=== PATIENT | male | born 1960 | race Hispanic/Latino ===

== ENCOUNTER 2016-09-16 14:15 | Inpatient (IN) | payer OTHER ==
[2016-09-16 14:16] VITALS: BMI 28.8
--- NOTE | 2016-09-16 14:56 | ED PDOC ---
Arrival/HPI <Antonio Cobb - Last Filed: 09/17/16 05:07> - General Historian: Patient - History of Present Illness Time/Duration: Prior to Arrival Symptom Course: Unchanged Quality: Other Context: Other <Jeffery Castrejon - Last Filed: 09/17/16 10:28> - General Chief Complaint: Chest Pain Time Seen by Provider: 09/16/16 14:30 - History of Present Illness Narrative History of Present Illness (Text): 09/16/16 14:50 A 55 year old male, whose past medical history includes alcohol abuse, depression, hypertension, diabetes, asthma, cardiac stent and COPD, was brought into the emergency department by EMS for alcohol intoxication. Patient is complaining of chest discomfort and suicidal ideation with no plan. Patient admits to drinking alcohol daily, he states his last drink was at 13:00 today. Patient denies any fever, nausea, vomiting, diarrhea, abdominal pain, shortness of breath, homicidal ideation or any other complaints. PMD: Dr. Victor (Jeffery Castrejon) Past Medical History - Provider Review Nursing Documentation Reviewed: Yes - Infectious Disease Hx of Infectious Diseases: None - Tetanus Immunization Tetanus Immunization: Unknown - Cardiac Hx Cardiac Disorders: Yes (cad) Hx Angina: Yes Hx Cardiac Arrhythmia: Yes (afib) Hx Hypertension: Yes Hx Pacemaker: Yes Other/Comment: palpitations, cardiac stent - Pulmonary Hx Respiratory Disorders: Yes Hx Chronic Obstructive Pulmonary Disease (COPD): Yes - Neurological Hx Neurological Disorder: Yes (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) Hx Dizziness: Yes Other/Comment: tremors, syncope, weakness - HEENT Hx HEENT Disorder: No - Renal Hx Renal Disorder: No - Endocrine/Metabolic Hx Endocrine Disorders: No - Hematological/Oncological Hx Blood Disorders: No Hx AIDS: No - Integumentary Hx Dermatological Disorder: No - Musculoskeletal/Rheumatological Hx Musculoskeletal Disorders: Yes Hx Falls: Yes Hx Fractures: Yes (JAW FRACTURE FROM BOXING) - Gastrointestinal Hx Gastrointestinal Disorders: No - Genitourinary/Gynecological Hx Genitourinary Disorders: No - Psychiatric Hx Psychophysiologic Disorder: Yes Hx Depression: Yes Hx Substance Use: No - Past Surgical History Past Surgical History: No Previous - Surgical History Hx Cardiac Catheterization: Yes Hx Coronary Stent: Yes (X1) - Anesthesia Hx Anesthesia: Yes Hx Anesthesia Reactions: No Hx Malignant Hyperthermia: No - Suicidal Assessment Feels Threatened In Home Enviroment: No <Jeffery Castrejon - Last Filed: 09/17/16 10:28> Family/Social History - Physician Review Nursing Documentation Reviewed: Yes Family/Social History: No Known Family HX Smoking Status: Light Smoker < 10 Cigarettes Daily Hx Alcohol Use: Yes Amount per day: 5 Hx Substance Use: No Hx Substance Use Treatment: No <Jeffery Castrejon - Last Filed: 09/17/16 10:28> Allergies/Home Meds <RezaAntonio - Last Filed: 09/17/16 05:07> <Jeffery Castrejon - Last Filed: 09/17/16 10:28> Allergies/Adverse Reactions: Allergies No Known Allergies Allergy (Verified 09/16/16 14:25) Home Medications: Home Meds Medication Instructions Recorded Confirmed Simvastatin 40 mg PO DAILY 09/04/12 05/27/16 Aspirin [Aspir 81] 81 mg PO DAILY 09/09/12 05/27/16 Metoprolol Tartrate [Lopressor] 50 mg PO BID 08/14/15 05/27/16 Sertraline HCl 50 mg PO DAILY 08/14/15 05/27/16 Valsartan/Hydrochlorothiazide 1 tab PO DAILY 08/14/15 05/27/16 [Valsartan-Hctz 320-25 mg Tab] Nitrostat SL Tab 0.4 mg PO PRN PRN 10/12/15 05/27/16 Review of Systems - Review of Systems Systems not reviewed;Unavailable: Intoxicated <Jeffery Castrejon - Last Filed: 09/17/16 10:28> Physical Exam Vital Signs Reviewed: Yes Temperature: Afebrile Blood Pressure: Normal Pulse: Tachycardic Respiratory Rate: Normal Appearance: Positive for: Comfortable. No: Non-Toxic Pain Distress: None Mental Status: No: Confused, Agitated, Lethargic - Systems Exam Head: Present: Atraumatic, Normocephalic Pupils: Present: PERRL Extroacular Muscles: Present: EOMI Conjunctiva: Present: Normal Mouth: Present: Moist Mucous Membranes Neck: Present: Normal Range of Motion Respiratory/Chest: Present: Clear to Auscultation, Good Air Exchange. No: Respiratory Distress, Accessory Muscle Use Cardiovascular: Present: Regular Rate and Rhythm, Normal S1, S2. No: Murmurs Abdomen: Present: Normal Bowel Sounds. No: Tenderness, Distention, Peritoneal Signs Back: Present: Normal Inspection Upper Extremity: Present: Normal Inspection. No: Cyanosis, Edema Lower Extremity: Present: Normal Inspection. No: Edema Neurological: Present: GCS=15, CN II-XII Intact, Speech Normal Skin: Present: Warm, Dry, Normal Color. No: Rashes Psychiatric: Present: Intoxicated <Jeffery Castrejon - Last Filed: 09/17/16 10:28> Vital Signs Temp Pulse Resp BP Pulse Ox 09/17/16 04:35 90 18 137/86 96 09/17/16 03:00 98.4 F 91 H 17 130/79 96 09/16/16 23:56 84 18 134/71 97 09/16/16 14:39 98.2 F 97 H 18 136/86 100 Medical Decision Making <Antonio Cobb - Last Filed: 09/17/16 05:07> - Lab Interpretations I have reviewed the lab results: Yes <Jeffery Castrejon - Last Filed: 09/17/16 10:28> ED Course and Treatment: 09/16/16 14:50 Impression: A 55 year old male brought in for alcohol intoxication and chest discomfort. Patient reports suicidal ideation with no plan. Plan: -- Chest xray -- EKG -- Labs -- Urinalysis -- IV fluids and Thiamine -- Reassess and disposition Progress Notes: EKG shows NSR at [address]-segment elevations, normal intervals. Interpreted by me. Report Date : 09/16/2016 15:51:06 Procedure: Chest xray Dictator : Raoul Cristina MD IMPRESSION: Questionable mild right basilar 09/17/16 10:27 (Jeffery Castrejon) - Lab Interpretations Lab Results: 09/16/16 15:40 09/16/16 15:40 Lab Results 09/16/16 20:20: Troponin I < 0.01, Urine Color Yellow, Urine Appearance Clear, Urine pH 7.0, Ur Specific [place] 1.010, Urine Protein Negative, Urine Glucose ( UA) Negative, Urine Ketones Negative, Urine Blood Trace-intact H, Urine Nitrate Negative, Urine Bilirubin Negative, Urine Urobilinogen 0.2, Ur Leukocyte Esterase Negative, Urine RBC 0 - 2, Urine WBC Negative, Urine Opiates Screen Negative, Urine Methadone Screen Negative, Ur Barbiturates Screen Negative, Ur Phencyclidine Scrn Negative, Ur Amphetamines Screen Negative, U Benzodiazepines Scrn Negative, U Oth Cocaine Metabols Negative, U Cannabinoids Screen Negative 09/16/16 15:40: WBC 5.7, RBC 4.39, Hgb 14.2, Hct 40.8 L, MCV 92.9, MCH 32.3, MCHC 34.8, RDW 13.0, Plt Count 279, MPV 9.7, Gran % 48.7 L, Lymph % (Auto) 40.0 H, [place] % (Auto) 9.3 H, Eos % (Auto) 0.3 L, Baso % (Auto) 1.7, Gran # 2.78, Lymph # 2.3, [place] # 0.5, Eos # 0.0, Baso # 0.10, Sodium 144, Potassium 4.0, Chloride 101, Carbon Dioxide 26, Anion Gap 21 H, BUN 15, Creatinine 0.8, Est GFR ( Amer) > 60, Est GFR (Non-Af Amer) > 60, Random Glucose 90, Calcium 8.9, Total Bilirubin 0.6, AST 73 H, ALT 43, Alkaline Phosphatase 76, Lactate Dehydrogenase 802 H, Total Creatine Kinase 690 H, CK-MB (CK-2) 1.5, CK-MB (CK-2 ) % Cancelled, Troponin I < 0.01, Total Protein 8.2, Albumin 4.3, Globulin 3.9, Albumin/Globulin Ratio 1.1, Alcohol, Quantitative 356 H* - RAD Interpretation Radiology Orders: 09/16/16 14:52 CHEST PORTABLE [RAD] Stat - Medication Orders Current Medication Orders: Acetaminophen (Tylenol 325mg Tab) 650 mg PO Q6H PRN PRN Reason: Fever >100.4 F Albuterol/Ipratropium (Duoneb 3 Mg/0.5 Mg (3 Ml) Ud) 3 ml IH TIDRESP [place] Albuterol/Ipratropium (Duoneb 3 Mg/0.5 Mg (3 Ml) Ud) 3 ml IH Q4 PRN PRN Reason: Shortness of Breath Chlordiazepoxide (Librium) 25 mg PO Q8 [place] PRN Reason: Protocol Last Admin: 09/17/16 06:45 Dose: 25 MG Enoxaparin Sodium (Lovenox) 40 mg SC DAILY [place] PRN Reason: Protocol Last Admin: 09/17/16 09:51 Dose: 40 MG Protocol for PTT Monitoring Document 09/17/16 09:51 [facility] (Rec: 09/17/16 09:51 [facility]-[id number]) Protocol Protocol for PTT Monitoring Following clinical pathway protocol (regime/therapy) Subcutaneous Administrations Document 09/17/16 09:51 [facility] (Rec: 09/17/16 09:51 [facility]-[id number]) Injection Site MAR Injection Site Left Abdomen Charges for Administration # of Subcutaneous Administrations 1 Folic Acid (Folic Acid) 1 mg PO DAILY [facility] Last Admin: 09/17/16 09:51 Dose: 1 MG Sodium Chloride (Sodium Chloride 0.9%) 1,000 mls @ 100 mls/hr IV .Q10H [facility] Last Admin: 09/17/16 09:55 Dose: 100 MLS/HR eMAR Start Stop Document 09/17/16 09:55 [facility] (Rec: 09/17/16 09:55 [facility]-[id number]) Intravenous Solution Start Date 09/17/16 Start Time 09:55 Azithromycin (Zithromax 500mg In Ns) 250 mls @ 167 mls/hr IVPB DAILY [facility] PRN Reason: Protocol Last Admin: 09/17/16 09:20 Dose: 167 MLS/HR eMAR Start Stop Document 09/17/16 09:20 [facility] (Rec: 09/17/16 09:57 [facility]-[id number]) Intravenous Solution Start Date 09/17/16 Start Time 09:20 End Date 09/17/16 End time 09:20 Total Infusion Time 0 Ceftriaxone Sodium (Rocephin 1 Gram Ivpb) 100 mls @ 100 mls/hr IVPB DAILY [facility] PRN Reason: Protocol Last Admin: 09/17/16 09:51 Dose: 100 MLS/HR eMAR Start Stop Document 09/17/16 09:51 [facility] (Rec: 09/17/16 09:52 [facility]-[id number]) Intravenous Solution Start Date 09/17/16 Start Time 09:52 End Date 09/17/16 End time 10:52 Total Infusion Time 60 Lorazepam (Ativan) 2 mg IVP Q4H PRN; Protocol PRN Reason: Anxiety Multivitamins (Thera Tab) 1 tab PO DAILY [facility] Last Admin: 09/17/16 09:51 Dose: 1 TAB Ondansetron HCl (Zofran Inj) 4 mg IVP Q6 PRN PRN Reason: Nausea/Vomiting Pantoprazole Sodium (Protonix Ec Tab) 40 mg PO 0630 [facility] Last Admin: 09/17/16 06:45 Dose: 40 MG Thiamine HCl (Vitamin B1 Tab) 100 mg PO DAILY [facility] Last Admin: 09/17/16 09:54 Dose: 100 MG Discontinued Medications Azithromycin (Zithromax) 500 mg PO STAT STA PRN Reason: Protocol Stop: 09/16/16 21:49 Last Admin: 09/17/16 06:41 Dose: Lorazepam (Ativan) 1 mg IVP ONCE ONE Stop: 09/17/16 03:37 Last Admin: 09/17/16 04:20 Dose: 1 MG Behavioural Document 09/17/16 04:20 [facility] (Rec: 09/17/16 04:20 [facility]-[id number]) Maintenance Maintenance Dose No Nonmedicinal Nonmedicinal Interventions Redirect See nurse's notes Behavior Behavior for Medication: Anxiety IVP Administration Document 09/17/16 04:20 [facility] (Rec: 09/17/16 04:20 [facility]-[id number]) Charges for Administration # of IVP Administrations 1 Thiamine HCl (Vitamin B1 Tab) 100 mg PO ONCE ONE Stop: 09/16/16 16:01 Last Admin: 09/16/16 15:55 Dose: 100 MG ED OBSERVATION <Antonio Cobb - Last Filed: 09/17/16 05:07> Date of observation admission: 09/16/16 Time of observation admission: 15:52 <Jeffery Castrejon - Last Filed: 09/17/16 10:28> - Observation admission statement Patient is being placed in observation because:: Alcohol intoxication (Jeffery Castrejon) - Goals of Observation Goals of observation are:: Sobriety (Jeffery Castrejon) - Progress Note Progress Note: 09/17/16 23:00 Case endorsed to me by Dr. Castrejon, pending sobriety, PES evaluation, re- assessment, and final disposition. 09/17/16 01:00 Pt sleeping currently, in no acute distress. 09/17/16 03:00 Pt resting comfortably, stable vital signs. Pt seen and evaluated by PES screener Sadie, who discussed case with psychiatrist card tape converter operator. Pt psychiatrically cleared for outpt follow-up. 09/17/16 03:34 On re-evaluation, pt now tremulous. Showing signs of alcohol withdrawal. Will admit for further evaluation. Paged medical records specialist and house physician. 09/17/16 03:[address] Atkinson, who is aware and agrees with plan. Accepts pt in to hospitalist service. Pt admitted to Telemetry for alcohol withdrawal syndrome. Pt is agreeable with plan. (Antonio Cobb) 09/16/16 15:52 Patient brought in for alcohol intoxication. Patient complains of chest discomfort and suicidal ideation. Will observe pending sobriety. 09/16/16 16:45 Labs reviewed, alcohol level of 356. 09/16/16 17:50 Patient resting comfortably, in no acute distress. 09/16/16 19:50 Patient resting comfortably, no new complaints. 09/16/16 20:35 Will order second set of troponin. 09/16/16 21:47 Second set of troponin is negative. Patient is medically cleared for PES. pt with questionable infiltrate. given one dose of zithromax. pt denies fever or cough. He is resting comfortably. 09/16/16 23:00 Patient signed out to Dr. Cobb. Pending PES evaluation. 09/17/16 10:27 (Jeffery Castrejon) <Antonio Cobb - Last Filed: 09/17/16 05:07> - Scribe Statement The provider has reviewed the documentation as recorded by the Scribe <Jeffery Castrejon - Last Filed: 09/17/16 10:28> - Scribe Statement Ghazala Beebe Provider Scribe Attestation: All medical record entries made by the Scribe were at my direction and personally dictated by me. I have reviewed the chart and agree that the record accurately reflects my personal performance of the history, physical exam, medical decision making, and the department course for this patient. I have also personally directed, reviewed, and agree with the discharge instructions and disposition. (Jeffery Castrejon) Disposition/Present on Arrival - Present on Arrival Any Indicators Present on Arrival: No History of DVT/PE: No History of Uncontrolled Diabetes: No Urinary Catheter: No History of Decub. Ulcer: No History Surgical Site Infection Following: None - Disposition Have Diagnosis and Disposition been Completed?: Yes Disposition Time: 03:44 Patient Plan: Admission <RezaAntonio - Last Filed: 09/17/16 05:07> - Present on Arrival Any Indicators Present on Arrival: No History of DVT/PE: No History of Uncontrolled Diabetes: No Urinary Catheter: No History of Decub. Ulcer: No History Surgical Site Infection Following: None - Disposition Have Diagnosis and Disposition been Completed?: Yes Disposition Time: 15:52 <Jeffery Castrejon - Last Filed: 09/17/16 10:28> - Disposition Diagnosis: Alcohol withdrawal syndrome Disposition: HOSPITALIZED Patient Problems: Current Active Problems Problem Status Diagnosed Alcohol withdrawal syndrome Acute Condition: STABLE - Notes Notes (Text): 09/17/16 10:28 (Jeffery Castrejon)
[2016-09-16] MEDS: Sodium Chloride 0.9% 1,000 ML IV SCH (15:48)
[2016-09-16 15:51] LABS: ADD MANUAL DIFF? NO
--- NOTE | 2016-09-16 15:52 | RAD ---
HISTORY: chest pain COMPARISON: Comparison made with chest radiograph 09/07/2016. FINDINGS: LUNGS: Atelectasis questionable mild right basilar PLEURA: No significant pleural effusion identified, no pneumothorax apparent. CARDIOVASCULAR: Cardiomegaly. OSSEOUS STRUCTURES: No significant abnormalities. VISUALIZED UPPER ABDOMEN: Normal. OTHER FINDINGS: None. IMPRESSION: Questionable mild right basilar
[2016-09-16 15:59] LABS: BASO % 1.7 % (0.0-3.0); EOS % 0.3 % (1.5-5.0); GRAN # 2.78 (1.4-6.5); GRAN % 48.7 % (50.0-68.0); HEMATOCRIT 40.8 % (42.0-52.0); LYMPH # 2.3 (1.2-3.4); MEAN CELL VOLUME 92.9 fL (80.0-105.0); MEAN CORPUSCULAR HEMOGLOBIN 32.3 pg (25.0-35.0); MEAN CORPUSCULAR HGB CONC 34.8 g/dl (31.0-37.0); MEAN PLATELET VOLUME 9.7 fl (7.0-11.0); MONO # 0.5 (0.1-0.6); MONO % 9.3 % (1.0-6.0); PLATELET COUNT 279 10^3/uL (120.0-450.0); WHITE BLOOD COUNT 5.7 10^3/ul (4.5-11.0)
[2016-09-16 16:15] LABS: ALB/GLOB RATIO 1.1 (1.1-1.8); ALKALINE PHOSPHATASE 76 U/L (38-133); ALT/SGPT 43 U/L (7-56); AST/SGOT 73 U/L (15-59); BILIRUBIN,TOTAL 0.6 mg/dL (0.2-1.3); BLOOD UREA NITROGEN 15 mg/dL (7-21); CALCIUM 8.9 mg/dL (8.4-10.5); CARBON DIOXIDE 26 mmol/L (21-33); CHLORIDE 101 mmol/L (98-107); GFR AFRICAN-AMERICAN > 60; GLUCOSE,RANDOM 90 mg/dL (70-110); SODIUM 144 mmol/L (132-148); TOTAL PROTEIN 8.2 g/dL (5.8-8.3)
[2016-09-16 16:41] LABS: TROPONIN I < 0.01 ng/mL
--- NOTE | 2016-09-16 19:48 | CARD ---
APPROVED REPORT EKG Measurement Heart [id number] <Conclusion> Normal sinus rhythm Normal ECG
[2016-09-16 20:48] LABS: URINE BILIRUBIN NEGATIVE (NEGATIVE); URINE BLOOD TRACE-INTACT (NEGATIVE); URINE GLUCOSE (UA) NEGATIVE (NEGATIVE); URINE KETONE NEGATIVE (NEGATIVE); URINE LEUKOCYTE ESTERASE NEGATIVE Leu/uL (NEGATIVE); URINE PROTEIN NEGATIVE mg/dL (<30 mg/dL); URINE UROBILINOGEN 0.2 E.U./dL (<1 E.U./dL)
[2016-09-16 20:52] LABS: URINE APPEARANCE CLEAR (CLEAR); URINE COLOR YELLOW (YELLOW)
[2016-09-16 20:53] LABS: URINE RBC 0 - 2 /hpf (0-2); URINE WBC NEGATIVE /hpf (0-6)
[2016-09-17] MEDS: Sodium Chloride 0.9% 1,000 ML IV SCH ×2 (01:19→09:55)
--- NOTE | 2016-09-17 05:17 | CP.PCM.HP ---
<Demetria Hernandez - Last Filed: 09/17/16 06:30> History of Present Illness - History of Present Illness History of Present Illness: PGY-[address] Atkinson H&P Admission: ETOH withdrawal, CP r/o ACS 55 y/o male with a hx of CAD s/p stents, A-fib, Angina, HTN, hyperlipidemia, alcohol abuse, depression, asthma and COPD, was brought into the emergency department by EMS for alcohol intoxication. Pt states that he was drinking at home, 15 beers/day, and feeling SOB without cough. Neighbor saw him and called the ambulance. When pt first arrives at the ED, patient is complaining of chest discomfort and suicidal ideation with no plan. Patient admits to drinking alcohol daily, he states his last drink was at 13:00 today. In the ED, VSS. CBC within normal limit except HCT is 41. Anion gap is high at 17. Lactate dehydrogenase is 802. Total CK is 690. cardiac enzyme negative x 2. Blood alcohol 356 at 4pm. - EKG shows NSR at [address]-segment elevations, normal intervals. - CXR showed questionable mild R basilar atelactasis - Azithromycin was given x 1 At 3am, after 12 hours since initial ED arrival, pt is now becoming tremulous, HR 102 on monitor. Pt denies suicidal ideation, hallucination. ROS - (+) constipation. with blood streaks on tissue after wiping. Denies hemoptsis, hematemasis (+) epigastric pain, worse when he is hungry Denies any fever/chills, nausea, coughs, N/vomiting, diarrhea, abdominal pain , shortness of breath, homicidal ideation or any other complaints. PMHx: CAD s/p stents; LVEF 51% Stress test 2016, echo 2015 A-fib Angina HTN hyperlipidemia Alcoholics Anemia Depression COPD PSHx: none FH: denies SH: smokes electronic cigarette, once daily Beer, 15 cans per day denies illicit drug use All NKDA Med ASA, Nitrostat PRN, , Lopressor BID, Valsartan/Hctz 320-25, Simvastatin 40 Sertraline 50 Albuterol PMD = Dr. 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) Hx Dizziness: Yes Other/Comment: tremors, syncope, weakness - HEENT Hx HEENT Problems: No - RENAL Hx Chronic Kidney Disease: No - ENDOCRINE/METABOLIC Hx Endocrine Disorders: No - HEMATOLOGICAL/ONCOLOGICAL Hx Blood Disorders: No Hx AIDS: No - INTEGUMENTARY Hx Dermatological Problems: No - MUSCULOSKELETAL/RHEUMATOLOGICAL Hx Musculoskeletal Disorders: Yes Hx Falls: Yes Hx Fractures: Yes (JAW FRACTURE FROM BOXING) - GASTROINTESTINAL Hx Gastrointestinal Disorders: No - GENITOURINARY/GYNECOLOGICAL Hx Genitourinary Disorders: No - PSYCHIATRIC Hx Psychophysiologic Disorder: Yes Hx Depression: Yes Hx Substance Use: No - SURGICAL HISTORY Hx Cardiac Catheterization: Yes Hx Coronary Stent: Yes (X1) - ANESTHESIA Hx Anesthesia: Yes Hx Anesthesia Reactions: No Hx Malignant Hyperthermia: No Meds Allergies/Adverse Reactions: Allergies Allergy/AdvReac Type Severity Reaction Status Date / Time No Known Allergies Allergy Verified 09/16/16 14:25 Physical Exam - Constitutional Appears: No Acute Distress Additional comments: alcohol breath - Head Exam Head Exam: ATRAUMATIC, NORMOCEPHALIC - Eye Exam Eye Exam: EOMI, Normal appearance, PERRL. absent: Scleral icterus Pupil Exam: NORMAL ACCOMODATION - ENT Exam ENT Exam: Mucous Membranes Moist - Neck Exam Neck exam: Negative for: Meningismus Additional comments: supple - Respiratory Exam Respiratory Exam: Clear to Auscultation Bilateral, NORMAL BREATHING PATTERN. absent: Rales, Rhonchi, Wheezes - Cardiovascular Exam Cardiovascular Exam: Tachycardia, REGULAR RHYTHM, +S1, +S2. absent: Systolic Murmur - GI/Abdominal Exam GI & Abdominal Exam: Normal Bowel Sounds, Soft, Tenderness (epigastric; negative anne, rovsing, mcburney) - Back Exam Back exam: absent: CVA tenderness (L), CVA tenderness (R), vertebral tenderness - Neurological Exam Neurological exam: Alert, Oriented x3 Additional comments: drowsy, easily awaken - Psychiatric Exam Psychiatric exam: Normal Affect, Normal Mood - Skin Skin Exam: Dry, Warm Results - Vital Signs Recent Vital Signs: Last Vital Signs Temp 98.4 F 09/17/16 03:00 Pulse 90 09/17/16 04:35 Resp 18 09/17/16 04:35 BP 137/86 09/17/16 04:35 Pulse Ox 96 09/17/16 04:35 - Labs Result Diagrams: 09/16/16 15:40 09/16/16 15:40 Assessment & Plan - Assessment and Plan (Free Text) Plan: 55 y/o male with a hx of CAD s/p stents, A-fib, Angina, HTN, hyperlipidemia, alcohol abuse, depression, asthma and COPD, was brought into the emergency department by EMS for alcohol intoxication. Patient is complaining of chest discomfort and suicidal ideation with no plan. Pt is now becoming tremulous and tachycardia at 102 ETOH withdrawal Tachycardia, tremulous - CIWA - Librium 25 q8 - Ativan 2q4 PRN - B1, folate, multivitamin - PRN zofran, tylenol Chest pain r/o ACS Hx Angina and A-fib - EKG shows NSR at [address]-segment elevations, normal intervals. QTc 447 - Cardiac enzyme negative x 2 - echocardiogram - cardiology consult - protonix trial, likely from GERD Rhabdomyolysis likely from tremor - Lactate dehydrogenase is 800 likely induced by ETOH metabolism demands on NADH - Total CK is 690. - NS@100 R basilar atelactasis r/o PNA - CAP vs aspiration Hx COPD - CXR showed questionable mild R basilar atelactasis - Rocephin and azithromax for now - Duoneb q8 [facility]; q4 prn Anion Gap with metabolic alkalosis - likely compensation from respiratory acidosis Questionable Hx of diabetes - will ck A1C Alcoholic abuse Depression Suicidal ideation - resolved - correctional counselor/case manager for cessation of alcohol - pt expressed wishes to cut down alcohol. - PES has [facility], [facility], and [facility] Prophylasix - lovenox, protonix S/R/D/w Dr. Atkinson - Date & Time Date: 09/17/16 Time: 05:25 <Beverly Atkinson - Last Filed: 09/17/16 21:05> Results - Vital Signs Recent Vital Signs: Last Vital Signs Temp 98 F 09/17/16 18:00 Pulse 92 H 09/17/16 18:00 Resp 20 09/17/16 18:00 BP 174/98 H 09/17/16 18:00 Pulse Ox 95 09/17/16 06:45 - Labs Result Diagrams: 09/17/16 08:50 09/17/16 08:50 Labs: Laboratory Results - last 24 hr 09/17/16 09/17/16 08:30 08:50 WBC 6.4 RBC 4.26 Hgb 13.8 L Hct 39.6 L MCV 93.0 MCH 32.4 MCHC 34.8 RDW 13.0 Plt Count 278 MPV 9.4 Gran % 67.3 Lymph % (Auto) 19.4 L [place] % (Auto) 12.2 H Eos % (Auto) 0.3 L Baso % (Auto) 0.8 Gran # 4.29 Lymph # 1.2 [place] # 0.8 H Eos # 0.0 Baso # 0.05 Sodium 137 Potassium 4.0 Chloride 100 Carbon Dioxide 25 Anion Gap 16 BUN 16 Creatinine 0.8 Est GFR ( Amer) > 60 Est GFR (Non-Af Amer) > 60 Random Glucose 71 Hemoglobin A1c 5.7 Calcium 8.7 Total Bilirubin 0.9 AST 66 H ALT 32 Alkaline Phosphatase 86 Lactate Dehydrogenase 611 Total Creatine Kinase 385 H CK-MB (CK-2) 1.0 CK-MB (CK-2) % Cancelled Troponin I < 0.01 Total Protein 7.8 Albumin 4.1 Globulin 3.7 Albumin/Globulin Ratio 1.1 Triglycerides 56 Cholesterol 175 LDL Cholesterol Direct 88 HDL Cholesterol 84 H Amylase 69 Lipase 191 Procalcitonin < 0.05 L Attending/Attestation - Attestation I have personally seen and examined this patient.: Yes I have fully participated in the care of the patient.: Yes I have reviewed all pertinent clinical information: Yes Notes (Text): 09/17/16 21:04 Patient was seen by me when he was in the ER. Agree with history, physical examination , assessment and plan.
[2016-09-17] MEDS ORDERED: Albuterol-Ipratrop 3 mg / 0.5 (3 ml) UD IH PRN (06:28)
[2016-09-17] MEDS: Pantoprazole 40 mg EC Tab PO SCH (06:45)
[2016-09-17 09:03] LABS: ADD MANUAL DIFF? NO
[2016-09-17 09:07] LABS: BASO # 0.05 K/mm3 (0.0-2.0); BASO % 0.8 % (0.0-3.0); EOS % 0.3 % (1.5-5.0); GRAN # 4.29 (1.4-6.5); GRAN % 67.3 % (50.0-68.0); HEMATOCRIT 39.6 % (42.0-52.0); LYMPH # 1.2 (1.2-3.4); LYMPH % 19.4 % (22.0-35.0); MEAN CORPUSCULAR HEMOGLOBIN 32.4 pg (25.0-35.0); MEAN CORPUSCULAR HGB CONC 34.8 g/dl (31.0-37.0); MEAN PLATELET VOLUME 9.4 fl (7.0-11.0); MONO # 0.8 (0.1-0.6); MONO % 12.2 % (1.0-6.0); PLATELET COUNT 278 10^3/uL (120.0-450.0); WHITE BLOOD COUNT 6.4 10^3/ul (4.5-11.0)
[2016-09-17] MEDS: Azithromycin 500MG/NS 250ml 250 ML IVPB SCH (09:20)
[2016-09-17 09:32] LABS: ALB/GLOB RATIO 1.1 (1.1-1.8); ALKALINE PHOSPHATASE 86 U/L (38-133); ALT/SGPT 32 U/L (7-56); AST/SGOT 66 U/L (15-59); BILIRUBIN,TOTAL 0.9 mg/dL (0.2-1.3); BLOOD UREA NITROGEN 16 mg/dL (7-21); CALCIUM 8.7 mg/dL (8.4-10.5); CARBON DIOXIDE 25 mmol/L (21-33); CHLORIDE 100 mmol/L (98-107); CHOLESTEROL 175 mg/dL (130-200); GFR AFRICAN-AMERICAN > 60; GLUCOSE,RANDOM 71 mg/dL (70-110); SODIUM 137 mmol/L (132-148); TOTAL PROTEIN 7.8 g/dL (5.8-8.3)
[2016-09-17 09:37] LABS: TROPONIN I < 0.01 ng/mL
[2016-09-17] MEDS: Enoxaparin 40 mg Syringe SC SCH (09:51)
[2016-09-17] MEDS: cefTRIAXone 1 gm 100 ML IVPB SCH (09:51)
[2016-09-17] MEDS: Multivitamin Therapeutic Tab PO SCH (09:51)
[2016-09-17 11:48] LABS: AMYLASE 69 U/L (35-125); LIPASE 191 U/L (23-300)
[2016-09-17] MEDS: Albuterol-Ipratrop 3 mg / 0.5 (3 ml) UD IH SCH ×2 (14:04→19:56)
--- NOTE | 2016-09-17 14:36 | RAD ---
HISTORY: r/o pneumonia COMPARISON: September 16, 2016. TECHNIQUE: Chest PA and lateral FINDINGS: LUNGS: No active pulmonary disease. PLEURA: No significant pleural effusion identified. No pneumothorax apparent. CARDIOVASCULAR: No radiographic findings to suggest acute or significant cardiovascular disease. OSSEOUS STRUCTURES: No significant abnormalities. VISUALIZED UPPER ABDOMEN: Normal. OTHER FINDINGS: None. IMPRESSION: No active disease. No significant interval change compared to the prior examination(s).
--- NOTE | 2016-09-17 16:16 | CON ---
DATE: 09/17/2016 HISTORY OF PRESENT ILLNESS: The patient is a 55-year-old male with chronic alcohol binge. The patient presented with epigastric discomfort. PAST MEDICAL HISTORY: Notable for hypertension. He is status post PTCA and stent several years ago. He presented with alcohol intoxication. SOCIAL HISTORY: Denies smoking. REVIEW OF SYSTEMS: A 14-point review of systems was reviewed. He denies angina, but does admit to e pigastric discomfort. PHYSICAL EXAMINATION: VITAL SIGNS: Blood pressure varies from 137-164 systolic, heart rate is in the 90s, normal sinus rhy thm. NECK: Negative JVD. LUNGS: Without rales. HEART: Reveals S1, S2. EXTREMITIES: Without edema. EKG shows no acute changes. LABORATORIES: Includes an alcohol of 356. The hemoglobin is 13.8. Chemistries: Troponins are nega tive x 3. IMPRESSION: 1. Alcoholic withdrawal. 2. Hypertension. 3. No evidence for acute coronary syndrome. 4. Epigastric discomfort, need to rule out pancreatitis. PLAN: Given these findings, we will order clonidine 0.1 b.i.d. We will obtain an amylase and lipase . Amari Jacobsen MD cc: [id number] TT: 09/17/2016 11:39:31 Confirmation # [id number] Dictation # [id number] jn
[2016-09-17] MEDS ORDERED: NITROSTAT 0.4 MG PO PRN (18:26)
[2016-09-17] MEDS ORDERED: Albuterol HFA 90 mcg/actuation (8 g) IH SCH (20:00)
[2016-09-18] MEDS: Pantoprazole 40 mg EC Tab PO SCH (05:32)
[2016-09-18 06:26] LABS: ADD MANUAL DIFF? NO
[2016-09-18 06:40] LABS: BASO # 0.03 K/mm3 (0.0-2.0); BASO % 0.5 % (0.0-3.0); EOS # 0.1 (0.0-0.7); GRAN % 62.5 % (50.0-68.0); HEMATOCRIT 36.6 % (42.0-52.0); LYMPH # 1.3 (1.2-3.4); LYMPH % 21.8 % (22.0-35.0); MEAN CELL VOLUME 93.6 fL (80.0-105.0); MEAN CORPUSCULAR HEMOGLOBIN 31.7 pg (25.0-35.0); MEAN CORPUSCULAR HGB CONC 33.9 g/dl (31.0-37.0); MEAN PLATELET VOLUME 9.7 fl (7.0-11.0); MONO # 0.8 (0.1-0.6); MONO % 14.2 % (1.0-6.0); PLATELET COUNT 258 10^3/uL (120.0-450.0); WHITE BLOOD COUNT 5.9 10^3/ul (4.5-11.0)
[2016-09-18] MEDS: Albuterol-Ipratrop 3 mg / 0.5 (3 ml) UD IH SCH ×2 (07:49→13:52)
[2016-09-18 08:06] LABS: ALB/GLOB RATIO 1.1 (1.1-1.8); ALKALINE PHOSPHATASE 69 U/L (38-133); ALT/SGPT 25 U/L (7-56); AST/SGOT 50 U/L (15-59); BILIRUBIN,TOTAL 0.8 mg/dL (0.2-1.3); BLOOD UREA NITROGEN 10 mg/dL (7-21); CALCIUM 8.5 mg/dL (8.4-10.5); CARBON DIOXIDE 23 mmol/L (21-33); CHLORIDE 103 mmol/L (98-107); GFR AFRICAN-AMERICAN > 60; GLUCOSE,RANDOM 152 mg/dL (70-110); POTASSIUM 3.7 mmol/L (3.6-5.0); SODIUM 136 mmol/L (132-148); TOTAL PROTEIN 7.2 g/dL (5.8-8.3)
[2016-09-18] MEDS: Azithromycin 500MG/NS 250ml 250 ML IVPB SCH (09:47)
[2016-09-18] MEDS: Enoxaparin 40 mg Syringe SC SCH (09:48)
[2016-09-18] MEDS: Multivitamin Therapeutic Tab PO SCH (09:49)
[2016-09-18] MEDS ORDERED: Non Formulary Medication (Valsartan/Hydrochlorothiazide [Valsartan-Hctz 320-25 Mg Tab] 1 T PO SCH (10:00)
[2016-09-18] MEDS ORDERED: Non Formulary Medication (Simvastatin [Simvastatin] 40 MG) PO SCH (10:00)
--- NOTE | 2016-09-18 11:06 | PN ---
DATE: 09/18/2016 The patient is comfortable. There is resolution of his epigastric discomfort. Blood pressure 145/92, the heart rate is in the 90s. NECK: Negative JVD. LUNGS: Without rales. HEART: Reveals S1, S2. EXTREMITIES: Without edema. LABORATORIES: Amylase and lipase normal. Hemoglobin is 12.4. IMPRESSION: 1. Alcoholic withdrawal. 2. Alcohol dependency. 3. Hypertension. 4. No evidence for acute coronary syndrome. 5. Resolution of epigastric discomfort. Given these findings, there are no cardiac arrhythmias. The patient is hemodynamically stable. Will DC telemetry. Given his risk factors, I have discussed with the patient. We will consider an outpatient stress miley t once he fully recovers from his alcoholic withdrawal. Amari Jacobsen MD cc: [id number] TT: 09/18/2016 11:05:51 Confirmation # [id number] Dictation # [id number] jn
[2016-09-18 11:40] VITALS: BP 144/88; PULSE 78; RESP 20; TEMP 97.4
--- NOTE | 2016-09-18 11:50 | CON ---
DATE: 09/18/2016 HISTORY OF PRESENT ILLNESS: Shortly, the patient is a 55-year-old male, [place] descent. T he patient has long and debilitating history of alcohol use disorder, multiple medical issues, kuhn ry artery disease, atrial fibrillation, angina, hypertension, hyperlipidemia, asthma, COPD. The sil ent brought himself into the hospital looking for help for his alcohol withdrawal symptoms as well as alcohol intoxication as well as was feeling short of breath and patient also complained of chest dis comfort and suicidal ideations with no plan. Psych consult was called to move for evaluation of depr essive symptoms as well as possible suicidal ideations. The patient was seen and examined today at t he morning time. The patient presented to be alert and oriented. The patient reported that he feels much better. The patient said that he came to the hospital looking for help for his alcohol withdra wal symptoms and he was not feeling well. The patient has a fine tremor in upper extremities, but ov erall the patient said that he feels much better. The patient denied feeling of hopelessness or help lessness, denied feeling of depression, denied thoughts of killing himself or others. The patient to lerates medications well. The patient reported that he has future oriented plans to stop drinking co mpletely. The patient said he was not drinking approximately for 5 years and he relapsed just recent ly. For the past 2 months the patient was drinking and slowly it was progressing to 15 beers a day f or the past 2 weeks. This internal communications writer is doubtful about this statement because based on history the patie nt was again in the Emergency Room for alcohol intoxication in the past 5 years, as well. The patien t denied hearing voices, denied seeing things, denied paranoid ideations, reported sleep is on and of f. This internal communications writer offered trazodone as needed for insomnia. The patient verbalized understanding and w ants to take that medication. Also trazodone could help him with depressive symptoms. Besides that, the patient denied any other drug use. PAST PSYCHIATRIC HISTORY: The patient denied history of being depressed, denied history of suicidal attempts. The patient has multiple old cut scars on his left arm. When this internal communications writer asked about the scars, the patient said when he was in [place] it was a group of people of his age and they have a his tory of cutting behavior in order to check who is stronger. The patient denied suicidal attempts in the past. Denied family history of mental illness. VITAL SIGNS: Stable. Pulse is 81, blood pressure is elevated at 160/90, temperature 98.4, oxygen sa turation is 22. MEDICATIONS: Reviewed. Tylenol, DuoNeb, aspirin, Lipitor, Zithromax, Rocephin, Librium 25 mg q. 8 h ours scheduled, Catapres, Lovenox, folic acid, hydrochlorothiazide, Ativan 2 mg IV push q. 4 hours as needed, Lopressor, multivitamin, nitroglycerin, Zofran, Protonix, vitamin B1, and Diovan. MENTAL STATUS EXAMINATION: The patient presented to be alert, oriented, pleasant and cooperative. F air eye contact. Speech was normal rate, tone, quality, and quantity. Mood described as "I feel bet ter". Affect is reactive, mood congruent. Thought process was coherent and goal directed. Thought content: The patient denied visual, auditory, or tactile hallucinations, denied paranoid ideations. The patient said he was not feeling well, that is why he was verbalizing thoughts of killing himself . At present moment, adamantly denied thoughts, intent or plan. Insight and judgment are fair. Imp ulses are well controlled. IMPRESSION: Alcohol withdrawal symptoms which are better, alcohol use disorder, rule out substance-i nduced mood disorder. The patient has multiple medical problems, including coronary artery disease s tatus post stents, atrial fibrillation, angina, hypertension, hyperlipidemia, chronic obstructive pul monary disease, constipation also epigastric pain. PLAN: Continue current management. Zoloft was discontinued because it usually takes 4-[address] working as well as Zoloft is very anxiety provoking and for patient who has alcohol withdrawal sy mptoms is not a good choice. Trazodone will be a better choice and it was started 50 mg at the night time for insomnia as well as for depression. The patient is on Librium, which was discontinued and a fter vital signs are stable, start to wean off 15%-20% a day. Continue multivitamins, thiamine and f olic acid. This internal communications writer will sign off. The patient should be going to AA meetings, but feels relucta nt about that. The patient was educated about importance to keep sobriety. The patient verbalized u nderstanding. 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 Meanwhile, there are no acute issues going on and the patie nt denied suicidal ideation, denied homicidal ideation and does not present to be psychotic. This wr iter will sign off. Should you have any questions, give me a call back. Beti Sol MD cc: [phone] TT: 09/18/2016 11:50:11 Confirmation # [id number] Dictation # [id number] jn
[2016-09-18 12:09] VITALS: O2SAT 96
[2016-09-18] MEDS: cefTRIAXone 1 gm 100 ML IVPB SCH (12:15)
--- NOTE | 2016-09-18 13:46 | CP.PCM.DIS ---
<TroyBrandomichael - Last Filed: 09/20/16 03:34> Provider - Provider Date of Admission: 09/17/16 03:41 Attending physician: Swathi Shine MD Primary care physician: Leigh Victor MD Consults: cardiology: Dr. Jacobsen Psych: Dr. Sol Time Spent in preparation of Discharge (in minutes): 40 Diagnosis - Discharge Diagnosis (1) Alcohol withdrawal syndrome Status: Resolved (2) Stented coronary artery Status: Chronic (3) Suicidal ideation Status: Resolved (4) Depression Status: Chronic (5) Hypertension Status: Chronic (6) A-fib Status: Chronic (7) COPD (chronic obstructive pulmonary disease) Status: Chronic (8) Asthma Status: Chronic Hospital Course - Lab Results Lab Results: Most Recent Lab Values WBC 5.9 10^3/ul (4.5-11.0) 09/18/16 06:00 RBC 3.91 10^6/uL (3.5-6.1) 09/18/16 06:00 Hgb 12.4 gm/dL (14.0-18.0) L 09/18/16 06:00 Hct 36.6 % (42.0-52.0) L 09/18/16 06:00 MCV 93.6 fL (80.0-105.0) 09/18/16 06:00 MCH 31.7 pg (25.0-35.0) 09/18/16 06:00 MCHC 33.9 g/dl (31.0-37.0) 09/18/16 06:00 RDW 13.0 % (11.5-14.5) 09/18/16 06:00 Plt Count 258 10^3/uL (120.0-450.0) 09/18/16 06:00 MPV 9.7 fl (7.0-11.0) 09/18/16 06:00 Gran % 62.5 % (50.0-68.0) 09/18/16 06:00 Lymph % (Auto) 21.8 % (22.0-35.0) L 09/18/16 06:00 Hyde % (Auto) 14.2 % (1.0-6.0) H 09/18/16 06:00 Eos % (Auto) 1.0 % (1.5-5.0) L 09/18/16 06:00 Baso % (Auto) 0.5 % (0.0-3.0) 09/18/16 06:00 Gran # 3.70 (1.4-6.5) 09/18/16 06:00 Lymph # 1.3 (1.2-3.4) 09/18/16 06:00 Hyde # 0.8 (0.1-0.6) H 09/18/16 06:00 Eos # 0.1 (0.0-0.7) 09/18/16 06:00 Baso # 0.03 K/mm3 (0.0-2.0) 09/18/16 06:00 Sodium 136 mmol/L (132-148) 09/18/16 06:00 Potassium 3.7 mmol/L (3.6-5.0) 09/18/16 06:00 Chloride 103 mmol/L (98-107) 09/18/16 06:00 Carbon Dioxide 23 mmol/L (21-33) 09/18/16 06:00 Anion Gap 14 (10-20) 09/18/16 06:00 BUN 10 mg/dL (7-21) 09/18/16 06:00 Creatinine 0.8 mg/dL (0.5-1.4) 09/18/16 06:00 Est GFR ( Amer) > 60 09/18/16 06:00 Est GFR (Non-Af Amer) > 60 09/18/16 06:00 Random Glucose 152 mg/dL (70-110) H 09/18/16 06:00 Hemoglobin A1c 5.7 % (4.2-6.5) 09/17/16 08:50 Calcium 8.5 mg/dL (8.4-10.5) 09/18/16 06:00 Total Bilirubin 0.8 mg/dL (0.2-1.3) 09/18/16 06:00 AST 50 U/L (15-59) 09/18/16 06:00 ALT 25 U/L (7-56) 09/18/16 06:00 Alkaline Phosphatase 69 U/L (38-133) 09/18/16 06:00 Lactate Dehydrogenase 611 U/L (333-699) 09/17/16 08:50 Total Creatine Kinase 385 U/L (35-230) H 09/17/16 08:50 CK-MB (CK-2) 1.0 ng/mL (0.0-3.6) 09/17/16 08:50 CK-MB (CK-2) % Cancelled 09/16/16 15:40 Troponin I < 0.01 ng/mL 09/17/16 08:50 Total Protein 7.2 g/dL (5.8-8.3) 09/18/16 06:00 Albumin 3.8 g/dL (3.0-4.8) 09/18/16 06:00 Globulin 3.4 gm/dL 09/18/16 06:00 Albumin/Globulin Ratio 1.1 (1.1-1.8) 09/18/16 06:00 Triglycerides 56 mg/dL (35-160) 09/17/16 08:50 Cholesterol 175 mg/dL (130-200) 09/17/16 08:50 LDL Cholesterol Direct 88 mg/dL (0-129) 09/17/16 08:50 HDL Cholesterol 84 mg/dL (29-60) H 09/17/16 08:50 Amylase 69 U/L (35-125) 09/17/16 08:30 Lipase 276 U/L (23-300) 09/18/16 07:00 Procalcitonin < 0.05 NG/ML (0.19-0.49) L 09/17/16 08:30 Urine Color Yellow (YELLOW) 09/16/16 20:20 Urine Appearance Clear (CLEAR) 09/16/16 20:20 Urine pH 7.0 (4.7-8.0) 09/16/16 20:20 Ur Specific [place] 1.010 (1.005-1.035) 09/16/16 20:20 Urine Protein Negative mg/dL (<30 mg/dL) 09/16/16 20:20 Urine Glucose (UA) Negative mg/dL (NEGATIVE) 09/16/16 20:20 Urine Ketones Negative mg/dL (NEGATIVE) 09/16/16 20:20 Urine Blood Trace-intact (NEGATIVE) H 09/16/16 20:20 Urine Nitrate Negative (NEGATIVE) 09/16/16 20:20 Urine Bilirubin Negative (NEGATIVE) 09/16/16 20:20 Urine Urobilinogen 0.2 E.U./dL (<1 E.U./dL) 09/16/16 20:20 Ur Leukocyte Esterase Negative Shahzad/uL (NEGATIVE) 09/16/16 20:20 Urine RBC 0 - 2 /hpf (0-2) 09/16/16 20:20 Urine WBC Negative /hpf (0-6) 09/16/16 20:20 Urine Opiates Screen Negative (NEGATIVE) 09/16/16 20:20 Urine Methadone Screen Negative (NEGATIVE) 09/16/16 20:20 Ur Barbiturates Screen Negative (NEGATIVE) 09/16/16 20:20 Ur Phencyclidine Scrn Negative (NEGATIVE) 09/16/16 20:20 Ur Amphetamines Screen Negative (NEGATIVE) 09/16/16 20:20 U Benzodiazepines Scrn Negative (NEGATIVE) 09/16/16 20:20 U Oth Cocaine Metabols Negative (NEGATIVE) 09/16/16 20:20 U Cannabinoids Screen Negative (NEGATIVE) 09/16/16 20:20 Alcohol, Quantitative 356 mg/dL (0-10) H* 09/16/16 15:40 - Hospital Course Hospital Course: 55 year old male with past medical history of CAD s/p stents, A-fib, Angina, HTN, hyperlipidemia, alcohol abuse, depression, asthma and COPD, was brought into the emergency department by EMS for alcohol intoxication. Pt states that he was drinking at home, 15 beers/day, and feeling SOB without cough. Neighbor saw him and called the ambulance. When pt first arrives at the ED, patient is complaining of chest discomfort and suicidal ideation with no plan. Patient admits to drinking alcohol daily, he states his last drink was at 13:00 today. Denies fever, chills, shortness of breath, coughs hemoptsis, hematemasis, nausea, vomiting, diarrhea, abdominal pain. In the ED, VSS. CBC within normal limit except HCT is 41. Anion gap is high at 17. Lactate dehydrogenase is 802. Total CK is 690. cardiac enzyme negative x 2. Blood alcohol 356 at 4pm. EKG shows NSR at [address]-segment elevations, normal intervals. CXR showed questionable mild R basilar atelactasis. Azithromycin was given. Per ED staff, patient admits to having suicidal ideation. Upon admission, patient's home meds were resumed, placed on librium, ativan, multivitamin, zofran tylenol, and IVF were given. Cardiology and psychiatry were consulted. Patient was noted today upper extremity tremors on physical exam, but has been resolved on day 2 of his hospital stay. Cardiology suggests patient to undergo outpatient stress test. Psychiatry evaluated and recommended patient to continue current management and outpatient AA meetings. Alcohol cessation was strongly advised. The discharge plan and follow ups were extensively discussed with the patient who verbalized with complete understanding. At this time, after discussion of all issues, the patient was deemed medically fit for discharge. - Date & Time of H&P Date of H&P: 09/17/16 Time of H&P: 05:16 Discharge Exam - Head Exam Head Exam: ATRAUMATIC, NORMOCEPHALIC - Eye Exam Eye Exam: EOMI, Normal appearance - ENT Exam ENT Exam: Mucous Membranes Moist - Neck Exam Neck exam: Normal Inspection - Respiratory Exam Respiratory Exam: Clear to PA & Lateral, NORMAL BREATHING PATTERN, UNREMARKABLE. absent: Respiratory Distress - Cardiovascular Exam Cardiovascular Exam: REGULAR RHYTHM, RRR, +S1, +S2 - GI/Abdominal Exam GI & Abdominal Exam: Normal Bowel Sounds, Soft. absent: Rigid, Tenderness - Extremities Exam Extremities exam: normal capillary refill, normal inspection, pedal pulses present - Back Exam Back exam: NORMAL INSPECTION. absent: CVA tenderness (L), CVA tenderness (R) - Neurological Exam Neurological exam: Alert, CN II-XII Intact, Oriented x3 - Psychiatric Exam Psychiatric exam: Normal Affect, Normal Mood - Skin Skin Exam: Dry, Intact, Normal Color, Warm Discharge Plan - Discharge Medications Prescriptions: Azithromycin [Zithromax] 250 mg PO DAILY #4 tab - Follow Up Plan Condition: STABLE Disposition: HOME/ ROUTINE Instructions: Cardiac Stress Test (GEN), Heart Healthy Diet (GEN), Alcohol Intoxication (DC) Additional Instructions: -Patient was instructed follow up with PMD after hospital discharge -Alcohol cessation was strongly advised -Patient was suggested to attend AA meetings Patient scheduled for outpatient Stress test at 6AM on Wednesday; 09/25/16. Please call [phone], for any information. Diet: Heart Healthy diet Patient refuses flu and pneumococcal vaccines. Referrals: Leigh Hester MD [Primary Care Provider] - <Fátima DEAN,Jamietampaleandro - Last Filed: 09/20/16 14:13> Provider - Provider Date of Admission: 09/17/16 03:41 Attending physician: Swathi Shine MD Primary care physician: Leigh Victor MD Hospital Course - Lab Results Lab Results: Most Recent Lab Values WBC 5.9 10^3/ul (4.5-11.0) 09/18/16 06:00 RBC 3.91 10^6/uL (3.5-6.1) 09/18/16 06:00 Hgb 12.4 gm/dL (14.0-18.0) L 09/18/16 06:00 Hct 36.6 % (42.0-52.0) L 09/18/16 06:00 MCV 93.6 fL (80.0-105.0) 09/18/16 06:00 MCH 31.7 pg (25.0-35.0) 09/18/16 06:00 MCHC 33.9 g/dl (31.0-37.0) 09/18/16 06:00 RDW 13.0 % (11.5-14.5) 09/18/16 06:00 Plt Count 258 10^3/uL (120.0-450.0) 09/18/16 06:00 MPV 9.7 fl (7.0-11.0) 09/18/16 06:00 Gran % 62.5 % (50.0-68.0) 09/18/16 06:00 Lymph % (Auto) 21.8 % (22.0-35.0) L 09/18/16 06:00 Hyde % (Auto) 14.2 % (1.0-6.0) H 09/18/16 06:00 Eos % (Auto) 1.0 % (1.5-5.0) L 09/18/16 06:00 Baso % (Auto) 0.5 % (0.0-3.0) 09/18/16 06:00 Gran # 3.70 (1.4-6.5) 09/18/16 06:00 Lymph # 1.3 (1.2-3.4) 09/18/16 06:00 Hyde # 0.8 (0.1-0.6) H 09/18/16 06:00 Eos # 0.1 (0.0-0.7) 09/18/16 06:00 Baso # 0.03 K/mm3 (0.0-2.0) 09/18/16 06:00 Sodium 136 mmol/L (132-148) 09/18/16 06:00 Potassium 3.7 mmol/L (3.6-5.0) 09/18/16 06:00 Chloride 103 mmol/L (98-107) 09/18/16 06:00 Carbon Dioxide 23 mmol/L (21-33) 09/18/16 06:00 Anion Gap 14 (10-20) 09/18/16 06:00 BUN 10 mg/dL (7-21) 09/18/16 06:00 Creatinine 0.8 mg/dL (0.5-1.4) 09/18/16 06:00 Est GFR ( Amer) > 60 09/18/16 06:00 Est GFR (Non-Af Amer) > 60 09/18/16 06:00 Random Glucose 152 mg/dL (70-110) H 09/18/16 06:00 Hemoglobin A1c 5.7 % (4.2-6.5) 09/17/16 08:50 Calcium 8.5 mg/dL (8.4-10.5) 09/18/16 06:00 Total Bilirubin 0.8 mg/dL (0.2-1.3) 09/18/16 06:00 AST 50 U/L (15-59) 09/18/16 06:00 ALT 25 U/L (7-56) 09/18/16 06:00 Alkaline Phosphatase 69 U/L (38-133) 09/18/16 06:00 Lactate Dehydrogenase 611 U/L (333-699) 09/17/16 08:50 Total Creatine Kinase 385 U/L (35-230) H 09/17/16 08:50 CK-MB (CK-2) 1.0 ng/mL (0.0-3.6) 09/17/16 08:50 CK-MB (CK-2) % Cancelled 09/16/16 15:40 Troponin I < 0.01 ng/mL 09/17/16 08:50 Total Protein 7.2 g/dL (5.8-8.3) 09/18/16 06:00 Albumin 3.8 g/dL (3.0-4.8) 09/18/16 06:00 Globulin 3.4 gm/dL 09/18/16 06:00 Albumin/Globulin Ratio 1.1 (1.1-1.8) 09/18/16 06:00 Triglycerides 56 mg/dL (35-160) 09/17/16 08:50 Cholesterol 175 mg/dL (130-200) 09/17/16 08:50 LDL Cholesterol Direct 88 mg/dL (0-129) 09/17/16 08:50 HDL Cholesterol 84 mg/dL (29-60) H 09/17/16 08:50 Amylase 69 U/L (35-125) 09/17/16 08:30 Lipase 276 U/L (23-300) 09/18/16 07:00 Procalcitonin < 0.05 NG/ML (0.19-0.49) L 09/17/16 08:30 Urine Color Yellow (YELLOW) 09/16/16 20:20 Urine Appearance Clear (CLEAR) 09/16/16 20:20 Urine pH 7.0 (4.7-8.0) 09/16/16 20:20 Ur Specific [place] 1.010 (1.005-1.035) 09/16/16 20:20 Urine Protein Negative mg/dL (<30 mg/dL) 09/16/16 20:20 Urine Glucose (UA) Negative mg/dL (NEGATIVE) 09/16/16 20:20 Urine Ketones Negative mg/dL (NEGATIVE) 09/16/16 20:20 Urine Blood Trace-intact (NEGATIVE) H 09/16/16 20:20 Urine Nitrate Negative (NEGATIVE) 09/16/16 20:20 Urine Bilirubin Negative (NEGATIVE) 09/16/16 20:20 Urine Urobilinogen 0.2 E.U./dL (<1 E.U./dL) 09/16/16 20:20 Ur Leukocyte Esterase Negative Shahzad/uL (NEGATIVE) 09/16/16 20:20 Urine RBC 0 - 2 /hpf (0-2) 09/16/16 20:20 Urine WBC Negative /hpf (0-6) 09/16/16 20:20 Urine Opiates Screen Negative (NEGATIVE) 09/16/16 20:20 Urine Methadone Screen Negative (NEGATIVE) 09/16/16 20:20 Ur Barbiturates Screen Negative (NEGATIVE) 09/16/16 20:20 Ur Phencyclidine Scrn Negative (NEGATIVE) 09/16/16 20:20 Ur Amphetamines Screen Negative (NEGATIVE) 09/16/16 20:20 U Benzodiazepines Scrn Negative (NEGATIVE) 09/16/16 20:20 U Oth Cocaine Metabols Negative (NEGATIVE) 09/16/16 20:20 U Cannabinoids Screen Negative (NEGATIVE) 09/16/16 20:20 Alcohol, Quantitative 356 mg/dL (0-10) H* 09/16/16 15:40 Attending/Attestation - Attestation I have personally seen and examined this patient.: Yes I have fully participated in the care of the patient.: Yes I have reviewed all pertinent clinical information, including history, physical exam and plan: Yes Notes (Text): 55 year old male with past medical history of CAD s/p stents, A-fib not on anticoagulation due to history of alcohol abuse, Angina, HTN, hyperlipidemia, alcohol abuse, depression, asthma and COPD, was admitted with alcohol intoxication, he was monitored for alcohol withdrawl.His alcohol withdrawal improved.He was not suicidal.The issue of ongoing alcohol abuse was discussed in detail with patent. Management plan was discussed in detail with patient Education was provided.
== END 2016-09-18 15:38 | disposition home or self-care (01) | DRG 750 ==
LOC: ED 14:15 → EROBSV 15:52 → OBSVTOIN 09-17 03:41 → ERH 09-17 03:50 → 2RSO 09-17 06:32
PROVIDERS: ADMIT Internal Medicine; ATTEND Internal Medicine
DX: F10.239 Alcohol dependence with withdrawal, unspecified (principal); J44.9 Chronic obstructive pulmonary disease, unspecified; I48.91 Unspecified atrial fibrillation; I10 Essential (primary) hypertension; F32.9 Major depressive disorder, single episode, unspecified; I25.119 Atherosclerotic heart disease of native coronary artery with unspecified angina pectoris; E78.5 Hyperlipidemia, unspecified; K59.00 Constipation, unspecified; J45.909 Unspecified asthma, uncomplicated; Y90.8 Blood alcohol level of 240 mg/100 ml or more; Z79.82 Long term (current) use of aspirin; Z95.5 Presence of coronary angioplasty implant and graft

== ENCOUNTER 2016-11-20 12:45 | Observation (INO) | payer OTHER ==
[2016-11-20 12:50] VITALS: BMI 27.3
--- NOTE | 2016-11-20 13:43 | ED PDOC ---
Arrival/HPI - General Chief Complaint: Alcohol Ingestion Time Seen by Provider: 11/20/16 13:05 Historian: EMS - History of Present Illness Narrative History of Present Illness (Text): 11/20/16 13:41 55 year old male presents to the emergency department for alcohol intoxication. Patient admits to drinking alcohol today. He states he is "way too drunk" and wants a "place to sleep." Denies pain or other complaints. Time/Duration: Prior to Arrival Symptom Course: Unchanged Modifying Factors (Text): None Associated Symptoms (Text): None Past Medical History - Provider Review Nursing Documentation Reviewed: Yes - Infectious Disease Hx of Infectious Diseases: None - Tetanus Immunization Tetanus Immunization: Unknown - Cardiac Hx Cardiac Disorders: Yes (cad) Hx Angina: Yes Hx Cardiac Arrhythmia: Yes (afib) Hx Hypertension: Yes Hx Pacemaker: Yes Other/Comment: palpitations, cardiac stent - Pulmonary Hx Respiratory Disorders: Yes Hx Chronic Obstructive Pulmonary Disease (COPD): Yes - Neurological Hx Neurological Disorder: Yes (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) Hx Dizziness: Yes Other/Comment: tremors, syncope, weakness - HEENT Hx HEENT Disorder: No - Renal Hx Renal Disorder: No - Endocrine/Metabolic Hx Endocrine Disorders: No - Hematological/Oncological Hx Blood Disorders: No Hx AIDS: No - Integumentary Hx Dermatological Disorder: No - Musculoskeletal/Rheumatological Hx Falls: Yes - Gastrointestinal Hx Gastrointestinal Disorders: No - Genitourinary/Gynecological Hx Genitourinary Disorders: No - Psychiatric Hx Psychophysiologic Disorder: Yes Hx Depression: Yes Hx Substance Use: No - Past Surgical History Past Surgical History: No Previous - Surgical History Hx Cardiac Catheterization: Yes Hx Coronary Stent: Yes (X1) - Anesthesia Hx Anesthesia: Yes Hx Anesthesia Reactions: No Hx Malignant Hyperthermia: No - Suicidal Assessment Feels Threatened In Home Enviroment: No Family/Social History - Physician Review Nursing Documentation Reviewed: Yes Family/Social History: Unknown Family HX Smoking Status: Current Some Days Smoker Hx Alcohol Use: Yes Amount per day: 5 Hx Substance Use: No Hx Substance Use Treatment: No Allergies/Home Meds Allergies/Adverse Reactions: Allergies No Known Allergies Allergy (Verified 09/16/16 14:25) Home Medications: Home Meds Medication Instructions Recorded Confirmed Unobtainable 11/20/16 11/20/16 Review of Systems - Review of Systems Systems not reviewed;Unavailable: Intoxicated Respiratory: absent: SOB Cardiovascular: absent: Chest Pain Gastrointestinal: absent: Abdominal Pain Physical Exam - Physical Exam Narrative Physical Exam (Text): Constitutional: No acute distress. Head: Normocephalic. Atraumatic. Eyes: PERRL. ENT: Moist mucous membranes. Neck: Supple. Cardiovascular: Regular rate. Chest: No tenderness. Respiratory: Clear to auscultation bilaterally. GI: Soft. Nontender. Nondistended. Back: No CVA tenderness. Musculoskeletal: No tenderness or swelling of extremities. Skin: No rash. Neurologic: Alert, no focal deficit. Vital Signs Reviewed: Yes Vital Signs Temp Pulse Resp BP Pulse Ox 11/20/16 20:50 80 16 154/103 H 95 11/20/16 19:30 98 F 93 H 16 163/93 H 96 11/20/16 12:45 97.6 F 98 H 18 183/110 H 95 Temperature: Afebrile Blood Pressure: Hypertensive Pulse: Regular Respiratory Rate: Normal Appearance: Positive for: Well-Appearing, Non-Toxic, Comfortable Pain Distress: None Medical Decision Making ED Course and Treatment: Impression: 55 year old male presents to the emergency department for alcohol intoxication. Differential Diagnosis included but are not limited to: Plan: -- Observe -- Reassess and disposition Prior Visits: Notes and results from previous visits were reviewed. Patient last seen in the ED on 09/17/16 for alcohol intoxication and admitted for Alcohol withdrawal syndrome. Progress Notes: ED OBSERVATION Discharge: Yes Date of observation admission: 11/20/16 Time of observation admission: 13:50 - Observation admission statement Patient is being placed in observation because:: alcohol intoxication - Goals of Observation Goals of observation are:: pending sobriety - Progress Note Progress Note: 11/20/16 13:50 On initial exam, patient is cooperative, answering questions, in no acute distress. Patient requesting to sleep. 11/20/16 15:50 Patient is sleeping comfortably in no acute distress. 11/20/16 17:50 Patient resting comfortably in no acute distress. 11/20/16 19:50 Patient sleeping, easily arousable. 11/20/16 21:06 Patient is awake, alert, steady on feet and feels well to go home. He complains of heartburn however. Will give dose of maalox prior to discharge. - Scribe Statement The provider has reviewed the documentation as recorded by the Frankie Adams Provider Scribe Attestation: All medical record entries made by the Frankie were at my direction and personally dictated by me. I have reviewed the chart and agree that the record accurately reflects my personal performance of the history, physical exam, medical decision making, and the department course for this patient. I have also personally directed, reviewed, and agree with the discharge instructions and disposition. Disposition/Present on Arrival - Present on Arrival Any Indicators Present on Arrival: No History of DVT/PE: No History of Uncontrolled Diabetes: No Urinary Catheter: No History of Decub. Ulcer: No History Surgical Site Infection Following: None - Disposition Have Diagnosis and Disposition been Completed?: Yes Diagnosis: Alcohol intoxication Disposition: HOME/ ROUTINE Disposition Time: 21:07 Patient Plan: Discharge Condition: STABLE
--- NOTE | 2016-11-20 15:12 | CARD ---
APPROVED REPORT EKG Measurement Heart [id number] <Conclusion> Sinus rhythm with 1st degree AV block Otherwise normal ECG
[2016-11-20 19:31] VITALS: RESP 16; TEMP 98
[2016-11-20] MEDS ORDERED: Alum-Mag Hydrox-Simethicone Susp (30 mL) PO ONE (21:07)
[2016-11-20 21:34] VITALS: BP 156/92; PULSE 84; O2SAT 96
== END 2016-11-20 21:07 | disposition home or self-care (01) ==
LOC: ED 12:45 → EROBSV 13:50
PROVIDERS: ADMIT Student in an Organized Health Care Education/Training Program; ATTEND Student in an Organized Health Care Education/Training Program
DX: F10.129 Alcohol abuse with intoxication, unspecified (principal); Y90.9 Presence of alcohol in blood, level not specified
CPT/HCPCS: 93005; 99284; G0378

== ENCOUNTER 2016-11-21 14:13 | Observation (INO) | payer OTHER ==
[2016-11-21 14:23] VITALS: BMI 25.0
[2016-11-21 14:32] VITALS: RESP 18; TEMP 98.1
--- NOTE | 2016-11-21 15:35 | ED PDOC ---
Arrival/HPI - General Chief Complaint: Alcohol Ingestion Time Seen by Provider: 11/21/16 14:16 Historian: EMS - History of Present Illness Narrative History of Present Illness (Text): 11/21/16 14:40 Patient is a 55 year old male who presents to the emergency department via EMS/ [facility] for possible EtOH intoxication. Patient is currently sleeping but the smell of alcohol is apparent. HPI & ROS limited. Time/Duration: 24 hours Symptom Onset: Gradual Activities at Onset: Significant (Drinking) Context: Street Past Medical History - Provider Review Nursing Documentation Reviewed: Yes - Infectious Disease Hx of Infectious Diseases: None - Tetanus Immunization Tetanus Immunization: Unknown - Cardiac Hx Cardiac Disorders: Yes (cad) Hx Angina: Yes Hx Cardiac Arrhythmia: Yes (afib) Hx Hypertension: Yes Hx Pacemaker: Yes Other/Comment: palpitations, cardiac stent - Pulmonary Hx Respiratory Disorders: Yes Hx Chronic Obstructive Pulmonary Disease (COPD): Yes - Neurological Hx Neurological Disorder: Yes (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) Hx Dizziness: Yes Other/Comment: tremors, syncope, weakness - HEENT Hx HEENT Disorder: No - Renal Hx Renal Disorder: No - Endocrine/Metabolic Hx Endocrine Disorders: No - Hematological/Oncological Hx Blood Disorders: No Hx AIDS: No - Integumentary Hx Dermatological Disorder: No - Musculoskeletal/Rheumatological Hx Falls: Yes - Gastrointestinal Hx Gastrointestinal Disorders: No - Genitourinary/Gynecological Hx Genitourinary Disorders: No - Psychiatric Hx Psychophysiologic Disorder: Yes Hx Depression: Yes Hx Substance Use: No - Past Surgical History Past Surgical History: No Previous - Surgical History Hx Cardiac Catheterization: Yes Hx Coronary Stent: Yes (X1) - Anesthesia Hx Anesthesia: Yes Hx Anesthesia Reactions: No Hx Malignant Hyperthermia: No - Suicidal Assessment Feels Threatened In Home Enviroment: No Family/Social History - Physician Review Nursing Documentation Reviewed: Yes Family/Social History: No Known Family HX Smoking Status: Current Some Days Smoker Hx Alcohol Use: Yes Amount per day: 5 Hx Substance Use: No Hx Substance Use Treatment: No Allergies/Home Meds Allergies/Adverse Reactions: Allergies No Known Allergies Allergy (Verified 11/21/16 14:23) Home Medications: Home Meds Medication Instructions Recorded Confirmed Unobtainable 11/21/16 11/21/16 Review of Systems - Review of Systems Systems not reviewed;Unavailable: Intoxicated Physical Exam Vital Signs Reviewed: Yes Vital Signs Temp Pulse Resp BP Pulse Ox 11/21/16 18:15 82 18 144/88 98 11/21/16 17:10 93 H 18 148/91 H 98 11/21/16 15:20 90 18 158/87 H 99 11/21/16 14:14 98.1 F 96 H 18 162/90 H 98 Temperature: Afebrile Blood Pressure: Hypertensive Pulse: Tachycardic Respiratory Rate: Normal Appearance: Positive for: Well-Appearing, Non-Toxic, Comfortable Pain Distress: None Mental Status: Positive for: Alert and Oriented X 3 - Systems Exam Head: Present: Atraumatic, Normocephalic Pupils: Present: PERRL Extroacular Muscles: Present: EOMI Conjunctiva: Present: Normal Mouth: Present: Moist Mucous Membranes Neck: Present: Normal Range of Motion Respiratory/Chest: Present: Clear to Auscultation, Good Air Exchange. No: Respiratory Distress, Accessory Muscle Use Cardiovascular: Present: Regular Rate and Rhythm, Normal S1, S2. No: Murmurs Abdomen: Present: Normal Bowel Sounds. No: Tenderness, Distention, Peritoneal Signs Back: Present: Normal Inspection Upper Extremity: Present: Normal Inspection. No: Cyanosis, Edema Lower Extremity: Present: Normal Inspection. No: Edema Neurological: Present: GCS=15, CN II-XII Intact, Speech Normal Skin: Present: Warm, Dry, Normal Color. No: Rashes Psychiatric: Present: Alert, Oriented x 3, Normal Insight, Normal Concentration Medical Decision Making ED Course and Treatment: 11/21/16 15:37 Impression: 55 year old male who presents intoxicated. Plan: -- Emergency department observation -- Reassess and disposition Prior Visits: Notes and results from previous visits were reviewed. Patient last seen in the emergency department on 11/20/2016 for alcohol intoxication. Progress Notes: 11/21/16 19:37 Patient seen ambulating in the emergency department. On re-evaluation, the patient feels better and is in no acute distress. I have discussed the results and plan with the patient, who expresses understanding. Patient in agreement with plan to discharged home. Patient is stable for discharge. Patient was instructed to follow up with physician/clinic in 1-2 days or return if symptoms worsen or new concerning symptoms arise. ED OBSERVATION Discharge: Yes Date of observation admission: 11/21/16 Time of observation admission: 14:40 - Observation admission statement Patient is being placed in observation because:: Intoxicated - Goals of Observation Goals of observation are:: Sobriety - Progress Note Progress Note: 11/21/16 16:25 Patient resting in the emergency department comfortably. 11/21/16 18:38 Patient remains sleeping. 11/21/16 19:35 Patient seen walking around in the Emergency department will discharge/ - Scribe Statement The provider has reviewed the documentation as recorded by the Emileibnina De La Fuente Provider Attestation: All medical record entries made by the Frankie were at my direction and personally dictated by me. I have reviewed the chart and agree that the record accurately reflects my personal performance of the history, physical exam, medical decision making, and the department course for this patient. I have also personally directed, reviewed, and agree with the discharge instructions and disposition. Disposition/Present on Arrival - Present on Arrival Any Indicators Present on Arrival: No History of DVT/PE: No History of Uncontrolled Diabetes: No Urinary Catheter: No History of Decub. Ulcer: No History Surgical Site Infection Following: None - Disposition Have Diagnosis and Disposition been Completed?: Yes Diagnosis: Alcohol intoxication Disposition: HOME/ ROUTINE Disposition Time: 19:36 Patient Plan: Discharge Condition: IMPROVED
[2016-11-21 17:11] VITALS: O2SAT 98
[2016-11-21 19:34] VITALS: BP 144/88; PULSE 82
== END 2016-11-21 19:39 | disposition home or self-care (01) ==
LOC: ED 14:13 → EROBSV 14:48
PROVIDERS: ADMIT Emergency Medicine; ATTEND Emergency Medicine
DX: F10.129 Alcohol abuse with intoxication, unspecified (principal); Y90.9 Presence of alcohol in blood, level not specified
CPT/HCPCS: 99283; G0378

== ENCOUNTER 2016-12-03 14:02 | Observation (INO) | payer OTHER ==
[2016-12-03 14:16] VITALS: BMI 30.2
[2016-12-03 14:24] VITALS: TEMP 97.9
--- NOTE | 2016-12-03 14:51 | ED PDOC ---
Arrival/HPI - General Chief Complaint: Alcohol Ingestion Time Seen by Provider: 12/03/16 14:05 Historian: Patient - History of Present Illness Narrative History of Present Illness (Text): 12/03/16 14:48 A 55 year old male, whose past medical history includes alcohol abuse and hypertension, brought in by EMS for alcohol intoxication. At bedside, patient poor historian. Patient is complaining of diffuse pain and weakness. Patient states drank 3 beers earlier today. Patient denies any fever or any other complaints at this time. 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) Hx Dizziness: Yes Other/Comment: tremors, syncope, weakness - HEENT Hx HEENT Disorder: No - Renal Hx Renal Disorder: No - Endocrine/Metabolic Hx Endocrine Disorders: No - Hematological/Oncological Hx Blood Disorders: No Hx AIDS: No - Integumentary Hx Dermatological Disorder: No - Musculoskeletal/Rheumatological Hx Falls: Yes - Gastrointestinal Hx Gastrointestinal Disorders: No - Genitourinary/Gynecological Hx Genitourinary Disorders: No - Psychiatric Hx Psychophysiologic Disorder: Yes Hx Depression: Yes Hx Substance Use: No - Past Surgical History Past Surgical History: No Previous - Surgical History Hx Cardiac Catheterization: Yes Hx Coronary Stent: Yes (X1) - Anesthesia Hx Anesthesia: Yes Hx Anesthesia Reactions: No Hx Malignant Hyperthermia: No - Suicidal Assessment Feels Threatened In Home Enviroment: No Family/Social History - Physician Review Nursing Documentation Reviewed: Yes Family/Social History: No Known Family HX Smoking Status: Current Some Days Smoker Hx Alcohol Use: Yes Amount per day: 5 Hx Substance Use: No Hx Substance Use Treatment: No Allergies/Home Meds Allergies/Adverse Reactions: Allergies No Known Allergies Allergy (Verified 11/21/16 14:23) Home Medications: Home Meds Medication Instructions Recorded Confirmed Unobtainable 11/21/16 12/03/16 Review of Systems - Physician Review All systems were reviewed & negative as marked: Yes - Review of Systems Constitutional: Other (diffuse pain and weakness). absent: Fevers Respiratory: absent: SOB Cardiovascular: absent: Chest Pain Physical Exam Vital Signs Reviewed: Yes Vital Signs Temp Pulse Resp BP Pulse Ox 12/04/16 06:40 99 H 16 98 12/04/16 02:19 88 16 95 12/03/16 23:18 90 18 145/70 97 12/03/16 20:33 98 H 16 150/84 97 12/03/16 16:41 91 H 16 145/85 97 12/03/16 14:21 97.9 F 92 H 16 151/99 H 97 12/03/16 14:16 97.5 F L 98 H 18 151/99 H 99 Temperature: Afebrile Blood Pressure: Hypertensive Pulse: Regular Respiratory Rate: Normal Appearance: Positive for: Non-Toxic, Comfortable, Other (mal odorous) Pain Distress: None Mental Status: Positive for: Alert and Oriented X 3 - Systems Exam Head: Present: Atraumatic, Normocephalic Pupils: Present: PERRL Extroacular Muscles: Present: Other (ecchymosis around orbits) Conjunctiva: Present: Normal Mouth: Present: Moist Mucous Membranes Neck: Present: Normal Range of Motion Respiratory/Chest: Present: Clear to Auscultation, Good Air Exchange. No: Respiratory Distress, Accessory Muscle Use Cardiovascular: Present: Regular Rate and Rhythm, Normal S1, S2. No: Murmurs Abdomen: Present: Normal Bowel Sounds. No: Tenderness, Distention, Peritoneal Signs Back: Present: Normal Inspection Upper Extremity: Present: Normal Inspection. No: Cyanosis, Edema Lower Extremity: Present: Normal Inspection. No: Edema Neurological: Present: GCS=15, CN II-XII Intact, Speech Normal Skin: Present: Warm, Dry, Normal Color. No: Rashes Psychiatric: Present: Alert, Oriented x 3, Normal Insight, Normal Concentration Medical Decision Making ED Course and Treatment: 12/03/16 14:53 Impression: A 5 year old male with alcohol intoxication. Plan: -- EKG -- chest xray -- CT head -- CT maxillofacial -- labs -- Urinalysis -- Reassess and disposition Prior Visits: Notes and results from previous visits were reviewed. Patient last reported to the emergency department on 11/21/16 for alcohol intoxication. Progress Notes: EKG: Ordered, reviewed, and independently interpreted the EKG. Rate : 97 BPM Rhythm : NSR Interpretation : Non-specific ST/T wave changes Comparison : No previous EKG for comparison. chest xray: Creator : Ruth Ann Atkinson MD 12/03/2016 15:19 IMPRESSION: No active pulmonary disease. CT MAXILLOFACIAL BONES WITHOUT CONTRAST Creator : Ruth Ann Atkinson MD 12/03/2016 15:56 IMPRESSION: Acute mildly displaced left nasal bone fracture and moderate overlying soft tissue swelling. Mild left periorbital soft tissue swelling. No acute maxillofacial or orbital fracture. CT HEAD WITHOUT CONTRAST Creator : Ruth Ann Atkinson MD 12/03/2016 15:36 IMPRESSION: No acute intracranial abnormality. Mild left periorbital soft tissue swelling. Mild age advanced global parenchymal volume loss. 12/04/16 12:27 endorsed to night team. pending reassessment after sobriety, repeat labs., final dispo - Lab Interpretations Lab Results: 12/03/16 14:45 12/03/16 14:45 Lab Results 12/03/16 16:40: Urine Opiates Screen Negative, Urine Methadone Screen Negative, Ur Barbiturates Screen Negative, Ur Phencyclidine Scrn Negative, Ur Amphetamines Screen Negative, U Benzodiazepines Scrn Negative, U Oth Cocaine Metabols Negative, U Cannabinoids Screen Negative 12/03/16 16:40: Urine Color Yellow, Urine Appearance Clear, Urine pH 6.5, Ur Specific [place] 1.010, Urine Protein 30 H, Urine Glucose (UA) Negative, Urine Ketones Negative, Urine Blood Moderate H, Urine Nitrate Negative, Urine Bilirubin Negative, Urine Urobilinogen 1.0 H, Ur Leukocyte Esterase Negative, Urine RBC 1 - 3, Urine WBC 0 - 2, Ur Epithelial Cells 0 - 2 12/03/16 14:45: PT 10.5, INR 0.97, APTT 25.6 12/03/16 14:45: Alcohol, Quantitative 490 H* 12/03/16 14:45: Sodium 138, Potassium 3.8, Chloride 95, Carbon Dioxide 26, Anion Gap 21 H, BUN 14, Creatinine 0.7, Est GFR ( Amer) > 60, Est GFR ( Non-Af Amer) > 60, Random Glucose 116 H, Calcium 8.2 L, Magnesium 2.1, Total Bilirubin 1.1, AST 353 H, ALT 164 H, Alkaline Phosphatase 79, Lactate Dehydrogenase 1849 H, Total Creatine Kinase 1528 H, CK-MB (CK-2) 7.35 H, CK-MB ( CK-2) % 0.5 L, Troponin I 0.05 D, Total Protein 7.3, Albumin 4.3, Globulin 3.0 , Albumin/Globulin Ratio 1.4 12/03/16 14:45: WBC 4.4 L D, RBC 4.45, Hgb 14.1, Hct 39.9 L, MCV 89.7, MCH 31.7 , MCHC 35.3, RDW 14.0, Plt Count 94 L, MPV 10.6, Gran % 62.5, Lymph % (Auto) 22.9, [place] % (Auto) 12.8 H, Eos % (Auto) 0.2 L, Baso % (Auto) 1.6, Gran # 2.73, Lymph # 1.0 L, [place] # 0.6, Eos # 0.0, Baso # 0.07 I have reviewed the lab results: Yes - RAD Interpretation Radiology Orders: 12/03/16 14:36 CHEST PORTABLE [RAD] Stat 12/03/16 14:37 HEAD W/O CONTRAST [CT] Stat 12/03/16 14:39 MAXILLOFACIAL W/O CONTRAST [CT] Stat - EKG Interpretation Interpreted by ED Physician: Yes Type: 12 lead EKG - Medication Orders Current Medication Orders: Discontinued Medications Chlordiazepoxide (Librium) 100 mg PO STAT STA PRN Reason: Protocol Stop: 12/04/16 02:24 Last Admin: 12/04/16 02:56 Dose: 100 mg Sodium Chloride (Sodium Chloride 0.9%) 1,000 mls @ 999 mls/hr IV .Q1H1M STA Stop: 12/03/16 17:37 Last Admin: 12/03/16 17:07 Dose: 999 mls/hr Sodium Chloride (Sodium Chloride 0.9%) 1,000 mls @ 999 mls/hr IV .Q1H1M STA Stop: 12/03/16 20:46 Last Admin: 12/03/16 22:59 Dose: 999 mls/hr Lorazepam (Ativan) 2 mg IVP ONCE ONE PRN Reason: Protocol Stop: 12/04/16 01:11 Last Admin: 12/04/16 01:18 Dose: 2 mg - Scribe Statement The provider has reviewed the documentation as recorded by the Frankie Best Provider Frankie Attestation: All medical record entries made by the Frankie were at my direction and personally dictated by me. I have reviewed the chart and agree that the record accurately reflects my personal performance of the history, physical exam, medical decision making, and the department course for this patient. I have also personally directed, reviewed, and agree with the discharge instructions and disposition. Disposition/Present on Arrival - Present on Arrival Any Indicators Present on Arrival: No History of DVT/PE: No History of Uncontrolled Diabetes: No Urinary Catheter: No History of Decub. Ulcer: No History Surgical Site Infection Following: None - Disposition Have Diagnosis and Disposition been Completed?: Yes Diagnosis: Alcohol abuse Disposition: HOME/ ROUTINE Disposition Time: 11:00 Condition: STABLE
--- NOTE | 2016-12-03 15:15 | RAD ---
HISTORY: Chest pain COMPARISON: 09/17/2016 FINDINGS: LUNGS: The lungs are clear. PLEURA: No significant pleural effusion identified, no pneumothorax apparent. CARDIOVASCULAR: Normal. OSSEOUS STRUCTURES: No significant abnormalities. VISUALIZED UPPER ABDOMEN: Normal. OTHER FINDINGS: None. IMPRESSION: No active pulmonary disease.
[2016-12-03 15:26] LABS: ADD MANUAL DIFF? NO
--- NOTE | 2016-12-03 15:34 | CT ---
PROCEDURE: CT HEAD WITHOUT CONTRAST. HISTORY: Fall COMPARISON: 12/04/2012 TECHNIQUE: Axial computed tomography images were obtained through the head/brain without intravenous contrast. Radiation dose: Total exam DLP = 689.54 mGy-cm. This CT exam was performed using one or more of the following dose reduction techniques: Automated exposure control, adjustment of the mA and/or kV according to patient size, and/or use of iterative reconstruction technique. FINDINGS: HEMORRHAGE: No intracranial hemorrhage. BRAIN: Estrada-white matter differentiation is preserved. There is no mass, mass effect or abnormal extra-axial fluid collection. VENTRICLES: There is mild age advanced global parenchymal volume loss and proportionate enlargement of the ventricles and cortical sulci. CALVARIUM: There is no calvarial fracture. There is mild left periorbital soft tissue swelling. PARANASAL SINUSES: There is mild mucosal thickening in the right frontal sinus. The remaining included paranasal sinuses are predominantly clear. MASTOID AIR CELLS: Predominantly clear. OTHER FINDINGS: None. IMPRESSION: No acute intracranial abnormality. Mild left periorbital soft tissue swelling. Mild age advanced global parenchymal volume loss.
[2016-12-03 15:52] LABS: ALB/GLOB RATIO 1.4 (1.1-1.8); ALKALINE PHOSPHATASE 79 U/L (38-133); ALT/SGPT 164 U/L (7-56); AST/SGOT 353 U/L (15-59); BILIRUBIN,TOTAL 1.1 mg/dL (0.2-1.3); BLOOD UREA NITROGEN 14 mg/dL (7-21); CALCIUM 8.2 mg/dL (8.4-10.5); CARBON DIOXIDE 26 mmol/L (21-33); CHLORIDE 95 mmol/L (95-110); GFR AFRICAN-AMERICAN > 60; GLUCOSE,RANDOM 116 mg/dL (70-110); MAGNESIUM 2.1 mg/dL (1.7-2.2); POTASSIUM 3.8 mmol/L (3.6-5.0); SODIUM 138 mmol/L (132-148); TOTAL PROTEIN 7.3 g/dL (5.8-8.3)
--- NOTE | 2016-12-03 15:55 | CT ---
PROCEDURE: CT MAXILLOFACIAL BONES WITHOUT CONTRAST HISTORY: Trauma COMPARISON: None TECHNIQUE: Contiguous axial CT images of the maxillofacial bones were obtained. Coronal and sagittal reformats were generated. Radiation dose: Total exam DLP = 742.71 mGy-cm. This CT exam was performed using one or more of the following dose reduction techniques: Automated exposure control, adjustment of the mA and/or kV according to patient size, and/or use of iterative reconstruction technique. FINDINGS: NASAL BONES: There is an acute mildly displaced left nasal bone fracture and moderate overlying soft tissue swelling. No right nasal bone fracture. ORBITS: No acute orbital fracture. PARANASAL SINUSES/ MASTOIDS: Mild chronic right frontal sinusitis. The remaining paranasal sinuses and mastoid air cells are clear. MAXILLA: No acute maxillofacial fracture MANDIBLE/ TEMPOROMANDIBULAR JOINTS: Unremarkable. SKULL BASE: Unremarkable. TEMPORAL BONES: Middle ears and mastoid grossly unremarkable. OTHER FINDINGS: There is mild left periorbital soft tissue swelling. IMPRESSION: Acute mildly displaced left nasal bone fracture and moderate overlying soft tissue swelling. Mild left periorbital soft tissue swelling. No acute maxillofacial or orbital fracture.
[2016-12-03 16:11] LABS: BASO # 0.07 K/mm3 (0.0-2.0); BASO % 1.6 % (0.0-3.0); EOS % 0.2 % (1.5-5.0); GRAN # 2.73 (1.4-6.5); GRAN % 62.5 % (50.0-68.0); HEMATOCRIT 39.9 % (42.0-52.0); LYMPH % 22.9 % (22.0-35.0); MEAN CELL VOLUME 89.7 fL (80.0-105.0); MEAN CORPUSCULAR HEMOGLOBIN 31.7 pg (25.0-35.0); MEAN CORPUSCULAR HGB CONC 35.3 g/dl (31.0-37.0); MEAN PLATELET VOLUME 10.6 fl (7.0-11.0); MONO # 0.6 (0.1-0.6); MONO % 12.8 % (1.0-6.0); PLATELET COUNT 94 10^3/uL (120.0-450.0); WHITE BLOOD COUNT 4.4 10^3/ul (4.5-11.0)
[2016-12-03 16:17] LABS: INR 0.97 (0.93-1.08); PARTIAL THROMBOPLASTIN TIME 25.6 Seconds (23.7-30.8)
[2016-12-03 16:26] LABS: TROPONIN I 0.05 ng/mL
[2016-12-03] MEDS ORDERED: Sodium Chloride 0.9% 1,000 ML IV STA ×2 (16:37→19:46)
[2016-12-03 19:59] LABS: PH,URINE 6.5 (4.7-8.0); URINE BILIRUBIN NEGATIVE (NEGATIVE); URINE BLOOD MODERATE (NEGATIVE); URINE GLUCOSE (UA) NEGATIVE (NEGATIVE); URINE KETONE NEGATIVE (NEGATIVE); URINE LEUKOCYTE ESTERASE NEGATIVE Leu/uL (NEGATIVE); URINE PROTEIN 30 mg/dL (<30 mg/dL)
[2016-12-03 20:13] LABS: URINE APPEARANCE CLEAR (CLEAR); URINE COLOR YELLOW (YELLOW)
[2016-12-03 20:32] LABS: URINE EPITHELIAL CELLS 0 - 2 /hpf (0-5); URINE WBC 0 - 2 /hpf (0-6)
[2016-12-03 23:19] VITALS: BP 145/70
[2016-12-04 01:38] LABS: TROPONIN I 0.05 ng/mL
[2016-12-04 02:20] VITALS: RESP 16
[2016-12-04 06:40] VITALS: PULSE 99; O2SAT 98
--- NOTE | 2016-12-04 10:18 | CARD ---
APPROVED REPORT EKG Measurement Heart [id number] <Conclusion> Sinus rhythm with borderline 1st degree AV block Possible Inferior infarct, age undetermined Prolonged QTc STTW changes c/w ischemia, new
== END 2016-12-04 06:18 | disposition home or self-care (01) ==
LOC: ED 14:02 → EROBSV 16:47
PROVIDERS: ADMIT Student in an Organized Health Care Education/Training Program; ATTEND Student in an Organized Health Care Education/Training Program
DX: F10.10 Alcohol abuse, uncomplicated (principal); Y90.8 Blood alcohol level of 240 mg/100 ml or more; I10 Essential (primary) hypertension; I48.91 Unspecified atrial fibrillation
CPT/HCPCS: 36415; 70450; 70486; 71010; 80053; 81001; 82550; 82553; 83615; 83735; 84484; 85025; 85610; 85730; 93005; 96374; 99284; G0378; G0480; J2060; J7040

== ENCOUNTER 2016-12-07 19:31 | Emergency (ER) | payer OTHER ==
[2016-12-07 19:31] VITALS: BMI 30.2
[2016-12-07 20:25] LABS: ADD MANUAL DIFF? NO
[2016-12-07 20:28] LABS: BASO # 0.08 K/mm3 (0.0-2.0); BASO % 1.4 % (0.0-3.0); EOS # 0.1 (0.0-0.7); EOS % 1.9 % (1.5-5.0); GRAN # 3.54 (1.4-6.5); GRAN % 61.1 % (50.0-68.0); HEMATOCRIT 36.3 % (42.0-52.0); LYMPH # 1.4 (1.2-3.4); LYMPH % 23.3 % (22.0-35.0); MEAN CORPUSCULAR HEMOGLOBIN 31.9 pg (25.0-35.0); MEAN CORPUSCULAR HGB CONC 33.9 g/dl (31.0-37.0); MEAN PLATELET VOLUME 9.8 fl (7.0-11.0); MONO # 0.7 (0.1-0.6); MONO % 12.3 % (1.0-6.0); PLATELET COUNT 143 10^3/uL (120.0-450.0); RED CELL DISTRIBUTION WIDTH 15.3 % (11.5-14.5); WHITE BLOOD COUNT 5.8 10^3/ul (4.5-11.0)
[2016-12-07 20:41] LABS: ALB/GLOB RATIO 1.4 (1.1-1.8); ALKALINE PHOSPHATASE 72 U/L (38-133); ALT/SGPT 113 U/L (7-56); AST/SGOT 139 U/L (15-59); BILIRUBIN,TOTAL 0.5 mg/dL (0.2-1.3); BLOOD UREA NITROGEN 9 mg/dL (7-21); CALCIUM 8.9 mg/dL (8.4-10.5); CARBON DIOXIDE 24 mmol/L (21-33); CHLORIDE 104 mmol/L (98-107); GFR AFRICAN-AMERICAN > 60; GLUCOSE,RANDOM 99 mg/dL (70-110); POTASSIUM 3.9 mmol/L (3.6-5.0); SODIUM 138 mmol/L (132-148); TOTAL PROTEIN 7.2 g/dL (5.8-8.3)
[2016-12-07 21:41] LABS: PH,URINE 6.5 (4.7-8.0); URINE BILIRUBIN NEGATIVE (NEGATIVE); URINE BLOOD TRACE-INTACT (NEGATIVE); URINE GLUCOSE (UA) NEGATIVE (NEGATIVE); URINE KETONE NEGATIVE (NEGATIVE); URINE LEUKOCYTE ESTERASE NEGATIVE Leu/uL (NEGATIVE); URINE PROTEIN NEGATIVE mg/dL (<30 mg/dL); URINE UROBILINOGEN 0.2 E.U./dL (<1 E.U./dL)
[2016-12-07 21:45] LABS: URINE APPEARANCE CLEAR (CLEAR); URINE COLOR LIGHT YELLOW (YELLOW)
[2016-12-07 22:06] LABS: URINE BACTERIA FEW (NEG); URINE RBC 0 - 2 /hpf (0-2); URINE WBC 0 - 2 /hpf (0-6)
--- NOTE | 2016-12-08 00:33 | ED PDOC ---
Arrival/HPI - General Chief Complaint: Alcohol Ingestion Time Seen by Provider: 12/07/16 19:37 Historian: Patient - History of Present Illness Narrative History of Present Illness (Text): 12/08/16 00:30 Keanu Smyth is a 55 year old male, with a history of alcohol abuse, presents to the emergency department requesting for admission to alcohol detox center. Denies any suicidal or homicidal ideation. Denies any somatic complaints. Symptom Onset: Gradual Severity Level: Mild Activities at Onset: Light Past Medical History - Provider Review Nursing Documentation Reviewed: Yes - Infectious Disease Hx of Infectious Diseases: None - Tetanus Immunization Tetanus Immunization: Unknown - Cardiac Hx Cardiac Disorders: Yes (cad) Hx Hypertension: Yes - Pulmonary Hx Tuberculosis: No - Neurological HX Cerebrovascular Accident: No Hx Seizures: No - HEENT Hx HEENT Disorder: No - Renal Hx Renal Disorder: No - Endocrine/Metabolic Hx Endocrine Disorders: No - Hematological/Oncological Hx Cancer: No - Integumentary Hx Dermatological Disorder: No - Musculoskeletal/Rheumatological Hx Falls: Yes - Gastrointestinal Hx Gastrointestinal Disorders: No - Genitourinary/Gynecological Hx Sexually Transmitted Diseases: No - Psychiatric Hx Psychophysiologic Disorder: Yes Hx Depression: Yes Hx Substance Use: No - Past Surgical History Past Surgical History: No Previous - Surgical History Hx Cardiac Catheterization: Yes Hx Coronary Stent: Yes (X1) - Anesthesia Hx Anesthesia: Yes Hx Anesthesia Reactions: No Hx Malignant Hyperthermia: No - Suicidal Assessment Feels Threatened In Home Enviroment: No Family/Social History - Physician Review Nursing Documentation Reviewed: Yes Family/Social History: No Known Family HX Smoking Status: Current Some Days Smoker Hx Alcohol Use: Yes Frequency of alcohol use: Daily Amount per day: 5 Hx Substance Use: No Hx Substance Use Treatment: No Allergies/Home Meds Allergies/Adverse Reactions: Allergies No Known Allergies Allergy (Verified 11/21/16 14:23) Review of Systems - Physician Review All systems were reviewed & negative as marked: Yes - Review of Systems Constitutional: Normal. absent: Fatigue, Fevers Respiratory: Normal. absent: SOB, Cough Cardiovascular: Normal. absent: Chest Pain, Palpitations Gastrointestinal: Normal. absent: Abdominal Pain, Diarrhea, Nausea, Vomiting Genitourinary Male: Normal Neurological: Normal. absent: Headache, Dizziness Psychiatric: Other (requesting alcohol detox ). absent: Depression, Suicidal Ideation Physical Exam Vital Signs Reviewed: Yes Vital Signs Temp Pulse Resp BP Pulse Ox 12/08/16 11:12 98.6 F 91 H 18 143/86 95 12/08/16 08:03 93 H 20 166/95 H 95 12/08/16 06:57 94 H 168/100 H 12/08/16 06:40 94 H 20 168/100 H 95 12/08/16 05:32 78 169/97 H 12/08/16 05:16 77 18 169/97 H 96 12/08/16 03:15 89 18 169/115 H 97 12/08/16 01:34 90 18 170/99 H 97 12/07/16 23:05 98.7 F 88 18 152/82 H 96 12/07/16 21:00 88 18 158/90 H 97 12/07/16 19:49 98.2 F 96 H 18 138/82 97 Temperature: Afebrile Blood Pressure: Normal Pulse: Regular Respiratory Rate: Normal Appearance: Positive for: Well-Appearing, Non-Toxic, Comfortable Pain Distress: None Mental Status: Positive for: Alert and Oriented X 3 - Systems Exam Head: Present: Atraumatic, Normocephalic Pupils: Present: PERRL Extroacular Muscles: Present: EOMI Conjunctiva: Present: Normal Mouth: Present: Moist Mucous Membranes Neck: Present: Normal Range of Motion Respiratory/Chest: Present: Clear to Auscultation, Good Air Exchange. No: Respiratory Distress, Accessory Muscle Use Cardiovascular: Present: Regular Rate and Rhythm, Normal S1, S2. No: Murmurs Abdomen: Present: Normal Bowel Sounds. No: Tenderness, Distention, Peritoneal Signs Back: Present: Normal Inspection Upper Extremity: Present: Normal Inspection. No: Cyanosis, Edema Lower Extremity: Present: Normal Inspection. No: Edema Neurological: Present: GCS=15, CN II-XII Intact, Speech Normal Skin: Present: Warm, Dry, Normal Color. No: Rashes Psychiatric: Present: Alert, Oriented x 3 Medical Decision Making ED Course and Treatment: 12/08/16 00:33 Impression: A 55 year old male who presents to the emergency department requesting admission to alcohol detox center. Plan: -- EKG -- Drug Screen -- Alcohol level -- Salicylate level -- ChlordiazePOXIDE -- Urinalysis -- Reassess and disposition Progress Notes: 12/08/16 00:35 Chest X-ray interpreted by me: No acute processes EKG interpreted by me: NSR @ 90 bpm with 1st degree AV block. Patient medically cleared for PES evaluation. 12/08/16 00:37 Patient medically cleared for psychiatric admission - Lab Interpretations Lab Results: 12/07/16 20:20 12/07/16 20:20 Lab Results 12/07/16 21:24: Urine Opiates Screen Negative, Urine Methadone Screen Negative, Ur Barbiturates Screen Negative, Ur Phencyclidine Scrn Negative, Ur Amphetamines Screen Negative, U Benzodiazepines Scrn Positive H, U Oth Cocaine Metabols Negative, U Cannabinoids Screen Negative 12/07/16 21:24: Urine Color Light yellow, Urine Appearance Clear, Urine pH 6.5, Ur Specific [place] 1.010, Urine Protein Negative, Urine Glucose (UA) Negative, Urine Ketones Negative, Urine Blood Trace-intact H, Urine Nitrate Negative, Urine Bilirubin Negative, Urine Urobilinogen 0.2, Ur Leukocyte Esterase Negative , Urine RBC 0 - 2, Urine WBC 0 - 2, Ur Epithelial Cells None, Urine Bacteria Few 12/07/16 20:20: Alcohol, Quantitative 153 H 12/07/16 20:20: Salicylates < 1 L, Acetaminophen < 10.0 L 12/07/16 20:20: Sodium 138, Potassium 3.9, Chloride 104, Carbon Dioxide 24, Anion Gap 14, BUN 9, Creatinine 0.7, Est GFR ( Amer) > 60, Est GFR (Non- Af Amer) > 60, Random Glucose 99, Calcium 8.9, Total Bilirubin 0.5, AST 139 H, ALT 113 H, Alkaline Phosphatase 72, Total Protein 7.2, Albumin 4.2, Globulin 3.0 , Albumin/Globulin Ratio 1.4 12/07/16 20:20: WBC 5.8 D, RBC 3.86, Hgb 12.3 L, Hct 36.3 L, MCV 94.0, MCH 31.9 , MCHC 33.9, RDW 15.3 H, Plt Count 143, MPV 9.8, Gran % 61.1, Lymph % (Auto) 23.3, [place] % (Auto) 12.3 H, Eos % (Auto) 1.9, Baso % (Auto) 1.4, Gran # 3.54, Lymph # 1.4, [place] # 0.7 H, Eos # 0.1, Baso # 0.08 - RAD Interpretation Radiology Orders: 12/07/16 20:10 CHEST PORTABLE [RAD] Stat - Medication Orders Current Medication Orders: Discontinued Medications Chlordiazepoxide (Librium) 25 mg PO STAT STA PRN Reason: Protocol Stop: 12/07/16 21:51 Last Admin: 12/07/16 22:10 Dose: 25 mg Chlordiazepoxide (Librium) 25 mg PO STAT STA PRN Reason: Protocol Stop: 12/08/16 07:05 Last Admin: 12/08/16 07:17 Dose: 25 mg Clonidine HCl (Catapres) 0.1 mg PO STAT STA Stop: 12/08/16 06:49 Last Admin: 12/08/16 06:57 Dose: 0.1 mg Hydralazine HCl (Apresoline) 10 mg IVP ONCE ONE Stop: 12/08/16 05:10 Last Admin: 12/08/16 05:32 Dose: 10 mg - Transfer of Care Patient signed out to Dr:: jaciel pending [facility] admission - Scribe Statement The provider has reviewed the documentation as recorded by the Scribe Dontae Qiu Provider Attestation: Provider Scribe Attestation: All medical record entries made by the Scribe were at my direction and personally dictated by me. I have reviewed the chart and agree that the record accurately reflects my personal performance of the history, physical exam, medical decision making, and the department course for this patient. I have also personally directed, reviewed, and agree with the discharge instructions and disposition. Disposition/Present on Arrival - Present on Arrival Any Indicators Present on Arrival: No History of DVT/PE: No History of Uncontrolled Diabetes: No Urinary Catheter: No History of Decub. Ulcer: No History Surgical Site Infection Following: None - Disposition Have Diagnosis and Disposition been Completed?: Yes Diagnosis: Alcohol intoxication Disposition: HOME/ ROUTINE Disposition Time: 07:00 Condition: GOOD Discharge Instructions (ExitCare): Alcohol Intoxication (ED) Additional Instructions: PLEASE RETURN TO THE EMERGENCY DEPARTMENT FOR NEW OR WORSENING SYMPTOMS. RETURN RIGHT AWAY IF YOU CANNOT FOLLOW UP WITH YOUR PRIMARY CARE DOCTOR, CLINIC, OR SPECIALIST IN 1-2 DAYS. Prescriptions: Folic Acid 1 mg PO DAILY #14 tab chlordiazePOXIDE [Chlordiazepoxide HCl] 25 mg PO DAILY #8 cap Thiamine [Vitamin B1 Tab] 100 mg PO DAILY #14 tab Referrals: [facility] [Outside] - Follow up with primary [facility] at [facility] [Outside] - Follow up with primary Beti Sol MD [Staff Provider] - Follow up with primary Leigh Hester MD [Primary Care Provider] - Follow up with primary
[2016-12-08 06:41] VITALS: O2SAT 95
--- NOTE | 2016-12-08 07:15 | ED PDOC ---
Physical Exam Vital Signs Reviewed: Yes Vital Signs Temp Pulse Resp BP Pulse Ox 12/08/16 11:12 98.6 F 91 H 18 143/86 95 12/08/16 08:03 93 H 20 166/95 H 95 12/08/16 06:57 94 H 168/100 H 12/08/16 06:40 94 H 20 168/100 H 95 12/08/16 05:32 78 169/97 H 12/08/16 05:16 77 18 169/97 H 96 12/08/16 03:15 89 18 169/115 H 97 12/08/16 01:34 90 18 170/99 H 97 12/07/16 23:05 98.7 F 88 18 152/82 H 96 12/07/16 21:00 88 18 158/90 H 97 12/07/16 19:49 98.2 F 96 H 18 138/82 97 Temperature: Afebrile Blood Pressure: Normal Pulse: Regular Respiratory Rate: Normal Appearance: Positive for: Well-Appearing, Non-Toxic, Comfortable Pain Distress: None Mental Status: Positive for: Alert and Oriented X 3 Medical Decision Making ED Course and Treatment: 12/08/16 07:14 Cleared for psych admission; bed pending 12/08/16 07:40 Patient denies any complaints at this time. 12/08/16 09:[address] Sol, examined patient and will make a determination at 11 :00 whether to transfer patient to [facility] or [facility]. 12/08/16 11:19 seen by Cindy from [facility], states she dw Dr. Sol and plan is to dc pt with outpatient f/u Pt has been closely monitored throughout the stay in the ED. Currently pt is ANOx3 to person, place, and time. Has good insight and judgment. Denies suicidal or homicidal ideations. Pt has steady gait, ambulates without difficulty, not slurring speech. Pt able to tolerate PO without any difficulty. Patient denies any complaints at this time. Patient is not tremulous, not tachycardic, no signs or symptoms of alcohol withdrawal. patient denies chest pain, shortness of breath, abd pain, nausea or vomiting Pt states he understands to return to the ER right away for new or worsening symptoms or for inability to f/u with PMD or specialist as instructed. Patient states that he fully agrees with and understands discharge instructions. States that he agrees with the plan and disposition. Verbalized and repeated discharge instructions and plan. I have given the patient opportunity to ask any additional questions. - Lab Interpretations Lab Results: 12/07/16 20:20 12/07/16 20:20 Lab Results 12/07/16 21:24: Urine Opiates Screen Negative, Urine Methadone Screen Negative, Ur Barbiturates Screen Negative, Ur Phencyclidine Scrn Negative, Ur Amphetamines Screen Negative, U Benzodiazepines Scrn Positive H, U Oth Cocaine Metabols Negative, U Cannabinoids Screen Negative 12/07/16 21:24: Urine Color Light yellow, Urine Appearance Clear, Urine pH 6.5, Ur Specific [place] 1.010, Urine Protein Negative, Urine Glucose (UA) Negative, Urine Ketones Negative, Urine Blood Trace-intact H, Urine Nitrate Negative, Urine Bilirubin Negative, Urine Urobilinogen 0.2, Ur Leukocyte Esterase Negative , Urine RBC 0 - 2, Urine WBC 0 - 2, Ur Epithelial Cells None, Urine Bacteria Few 12/07/16 20:20: Alcohol, Quantitative 153 H 12/07/16 20:20: Salicylates < 1 L, Acetaminophen < 10.0 L 12/07/16 20:20: Sodium 138, Potassium 3.9, Chloride 104, Carbon Dioxide 24, Anion Gap 14, BUN 9, Creatinine 0.7, Est GFR ( Amer) > 60, Est GFR (Non- Af Amer) > 60, Random Glucose 99, Calcium 8.9, Total Bilirubin 0.5, AST 139 H, ALT 113 H, Alkaline Phosphatase 72, Total Protein 7.2, Albumin 4.2, Globulin 3.0 , Albumin/Globulin Ratio 1.4 12/07/16 20:20: WBC 5.8 D, RBC 3.86, Hgb 12.3 L, Hct 36.3 L, MCV 94.0, MCH 31.9 , MCHC 33.9, RDW 15.3 H, Plt Count 143, MPV 9.8, Gran % 61.1, Lymph % (Auto) 23.3, [place] % (Auto) 12.3 H, Eos % (Auto) 1.9, Baso % (Auto) 1.4, Gran # 3.54, Lymph # 1.4, [place] # 0.7 H, Eos # 0.1, Baso # 0.08 - RAD Interpretation Radiology Orders: 12/07/16 20:10 CHEST PORTABLE [RAD] Stat - Medication Orders Current Medication Orders: Discontinued Medications Chlordiazepoxide (Librium) 25 mg PO STAT STA PRN Reason: Protocol Stop: 12/07/16 21:51 Last Admin: 12/07/16 22:10 Dose: 25 mg Chlordiazepoxide (Librium) 25 mg PO STAT STA PRN Reason: Protocol Stop: 12/08/16 07:05 Last Admin: 12/08/16 07:17 Dose: 25 mg Clonidine HCl (Catapres) 0.1 mg PO STAT STA Stop: 12/08/16 06:49 Last Admin: 12/08/16 06:57 Dose: 0.1 mg Hydralazine HCl (Apresoline) 10 mg IVP ONCE ONE Stop: 12/08/16 05:10 Last Admin: 12/08/16 05:32 Dose: 10 mg - Scribe Statement The provider has reviewed the documentation as recorded by the Frankie Best Provider Scribe Attestation: All medical record entries made by the Emileibnina were at my direction and personally dictated by me. I have reviewed the chart and agree that the record accurately reflects my personal performance of the history, physical exam, medical decision making, and the department course for this patient. I have also personally directed, reviewed, and agree with the discharge instructions and disposition. Disposition/Present on Arrival - Present on Arrival Any Indicators Present on Arrival: No History of DVT/PE: No History of Uncontrolled Diabetes: No Urinary Catheter: No History of Decub. Ulcer: No History Surgical Site Infection Following: None - Disposition Have Diagnosis and Disposition been Completed?: Yes Diagnosis: Alcohol intoxication Disposition: HOME/ ROUTINE Disposition Time: 11:21 Patient Plan: Discharge Condition: GOOD Discharge Instructions (ExitCare): Alcohol Intoxication (ED) Additional Instructions: PLEASE RETURN TO THE EMERGENCY DEPARTMENT FOR NEW OR WORSENING SYMPTOMS. RETURN RIGHT AWAY IF YOU CANNOT FOLLOW UP WITH YOUR PRIMARY CARE DOCTOR, CLINIC, OR SPECIALIST IN 1-2 DAYS. Prescriptions: chlordiazePOXIDE [Chlordiazepoxide HCl] 25 mg PO DAILY #8 cap Folic Acid 1 mg PO DAILY #14 tab Thiamine [Vitamin B1 Tab] 100 mg PO DAILY #14 tab Referrals: Leigh Hester MD [Primary Care Provider] - Follow up with primary Beti Sol MD [Staff Provider] - Follow up with primary [facility] at [facility] [place] [Outside] - Follow up with primary [facility] [Outside] - Follow up with primary
--- NOTE | 2016-12-08 09:11 | RAD ---
HISTORY: pes COMPARISON: 12/03/2016 FINDINGS: LUNGS: No active pulmonary disease. PLEURA: No significant pleural effusion identified, no pneumothorax apparent. CARDIOVASCULAR: Normal. OSSEOUS STRUCTURES: No significant abnormalities. VISUALIZED UPPER ABDOMEN: Normal. OTHER FINDINGS: None. IMPRESSION: No active disease.
[2016-12-08 11:13] VITALS: BP 143/86; PULSE 91; RESP 18; TEMP 98.6
--- NOTE | 2016-12-08 17:24 | CON ---
DATE: 12/08/2016 HISTORY OF PRESENT ILLNESS: Shortly, the patient is a 55-year-old [place] descent male. The patient has long history of alcohol use disorder. The patient has history of mood disorder due to chronic al cohol consumption. The patient brought himself to the hospital looking for help for his withdrawal s ymptoms, and patient was looking for alcohol detox during the night time. Due to language barrier carson odalys was misunderstood that patient wants to go to the psychiatric inpatient unit. The patient was seen today at the morning time. The patient presented to be alert. The patient complained that he h ad some abdominal pain and discomfort. Denied being depressed, denied thoughts of harming himself or others. The patient was offered to go to inpatient detox. The patient declined that offer. The carson odalys wanted to go to the medical side for alcohol withdrawals but, as per medical team, the patient does not meet the criteria for admission on the medical side. The patient is willing to be on Libriu m tapering dose as well as multivitamins. VITAL SIGNS: Stable. Temperature is 98.6, pulse is 91, blood pressure 143/86, respirations 18, oxyg en saturation 95. MEDICATIONS: Reviewed. The patient is also on Librium, Catapres and hydralazine. PAST PSYCHIATRIC HISTORY: The patient has history of mood disorder. Denies history of suicidal atte mpts. Denied admission to the psychiatric inpatient unit. MENTAL STATUS EXAMINATION: The patient appears to be alert, flat affect. The patient's withdrawal s ymptoms: The patient has only fine tremor in upper extremities. Intermittent eye contact. Speech w as underproductive, low volume. Mood described as, "I feel okay." Affect was constricted. Thought process was coherent and goal directed. Thought content: The patient denied visual, auditory, or ta ctile hallucinations. Denied paranoid ideations. The patient denied thoughts of harming himself or others, denied intent or plan. Insight and judgment are fair. Impulses are well controlled. IMPRESSION: Alcohol use disorder, rule out substance-induced mood disorder. TREATMENT PLAN: The patient was offered alcohol detox. The patient does not want to go to [facility]. The patient wants to be admitted to the medical side, but patient does not meet the criteria to go there. At the same time, this job specification writer does not feel the patient meets the criteria for psych a dmission because patient denied suicidal ideation, denied psychotic symptoms. The patient could be f ollowed up with outpatient psychiatrist. Thank you very much for letting me participate in the care of your patient. This job specification writer advised medi poonam team to provide patient with tapering dose of Librium as well as multivitamins, thiamine and foli c acid. Beti Sol MD cc: [phone] TT: 12/08/2016 17:23:52 Confirmation # [id number] Dictation # [id number] mn
--- NOTE | 2016-12-08 22:47 | CARD ---
APPROVED REPORT EKG Measurement Heart [id number] ID [id number] <Conclusion> Sinus rhythm with 1st degree AV block Otherwise normal ECG
== END 2016-12-08 11:17 | disposition home or self-care (01) ==
LOC: ED 19:31
DX: F10.129 Alcohol abuse with intoxication, unspecified (principal); Y90.6 Blood alcohol level of 120-199 mg/100 ml
CPT/HCPCS: 71010; 80053; 81001; 85025; 90791; 93005; 96374; 99285; G0480; J0360

== ENCOUNTER 2017-03-05 08:39 | Observation (INO) | payer OTHER ==
[2017-03-05] MEDS ORDERED: Folic Acid 1 MG, Thiamine 100 MG, Multivitamin (MVI) 10 ML in Dextrose 5% In Water 1,00... IV SCH (09:15)
--- NOTE | 2017-03-05 09:22 | ED PDOC ---
Arrival/HPI - General Chief Complaint: Alcohol Ingestion Time Seen by Provider: 03/05/17 08:57 Historian: Patient - History of Present Illness Narrative History of Present Illness (Text): 03/05/17 09:01 A 56 year old male whose past medical history includes alcohol abuse, presents to the emergency department with shortness of breath since this morning. The patient admits to chronic alcohol use. Denies chest pain, denies [place]. He denies suicidal/ homicidal ideation, fevers, chills, headache, dizziness, hallucinations, abdominal pain, nausea, vomiting, diarrhea, or any other complaint. PMD: Dr. Schmitz Time/Duration: Prior to Arrival Symptom Onset: Sudden Symptom Course: Unchanged Activities at Onset: Rest, Light Context: Home Past Medical History - Provider Review Nursing Documentation Reviewed: Yes - Infectious Disease Hx of Infectious Diseases: None - Tetanus Immunization Tetanus Immunization: Unknown - Cardiac Hx Cardiac Disorders: Yes (cad) Hx Hypertension: Yes - Pulmonary Hx Tuberculosis: No - Neurological HX Cerebrovascular Accident: No Hx Seizures: No - HEENT Hx HEENT Disorder: No - Renal Hx Renal Disorder: No - Endocrine/Metabolic Hx Endocrine Disorders: No - Hematological/Oncological Hx Cancer: No - Integumentary Hx Dermatological Disorder: No - Musculoskeletal/Rheumatological Hx Falls: Yes - Gastrointestinal Hx Gastrointestinal Disorders: No - Genitourinary/Gynecological Hx Sexually Transmitted Diseases: No - Psychiatric Hx Psychophysiologic Disorder: Yes Hx Depression: Yes Hx Substance Use: No - Past Surgical History Past Surgical History: No Previous - Surgical History Hx Cardiac Catheterization: Yes Hx Coronary Stent: Yes (X1) - Anesthesia Hx Anesthesia: Yes Hx Anesthesia Reactions: No Hx Malignant Hyperthermia: No - Suicidal Assessment Feels Threatened In Home Enviroment: No Family/Social History - Physician Review Nursing Documentation Reviewed: Yes Family/Social History: No Known Family HX Smoking Status: Current Some Days Smoker Hx Alcohol Use: Yes Amount per day: 5 Hx Substance Use: No Hx Substance Use Treatment: No Allergies/Home Meds Allergies/Adverse Reactions: Allergies No Known Allergies Allergy (Verified 03/05/17 08:55) Home Medications: Home Meds Medication Instructions Recorded Confirmed No Known Home Med 03/05/17 03/05/17 Physical Exam - Physical Exam Narrative Physical Exam (Text): - Review of Systems Constitutional: Normal. absent: Fatigue, Weight Change, Fevers Eyes: Normal ENT: Normal Respiratory: SOB absent: Cough, Sputum Cardiovascular: Normal absent: Chest pain, Palpitations, Syncope Gastrointestinal: Normal absent: Abdominal pain, Diarrhea, Nausea, Vomiting Genitourinary: Normal. absent: Dysuria, Frequency, Hematuria Musculoskeletal: Normal. absent: Arthralgias, Back Pain, Neck Pain Skin: Normal Neurological: Normal absent: Focal Weakness Endocrine: Normal Hemo/Lymphatic: Normal Psychiatric: Normal - Physical exam Patient appears age appropriate, speaking full sentences without difficulty - Systems Exam Head: Present: Atraumatic, Normocephalic Pupils: Present: PERRL Extraocular Muscles: Present: EOMI Conjunctiva: Present: Normal Mouth: Present: Moist Mucous Membranes Neck: Present: Normal Range of Motion. No: MIDLINE TENDERNESS, Paraspinal Tenderness Respiratory/Chest: Present: Clear to Auscultation, Good Air Exchange. No: Respiratory Distress, Accessory Muscle Use, Tachypneic Cardiovascular: Present: Regular Rate and Rhythm, Normal S1, S2, Peripheral Pulses Present. No: Murmurs Abdomen: Present: Normal Bowel Sounds, No: Tenderness, Peritoneal Signs, Rebound, Guarding, Distention Back: Present: Normal Inspection. No: Midline Tenderness, Paraspinal Tenderness Upper Extremity: Present: Normal Inspection. No: Cyanosis, Edema Lower Extremity: Present: Normal Inspection. No: Edema Neurological: Present: GCS=15, Speech Normal, cranial nerves II through XII fully intact with no cerebellar abnormality, neuro-sensory fully intact. No focal neurological deficits. Skin: Present: Warm, Dry, Normal Color. No: Rashes Lymphatic: Present: OX3, NI, NC Psychiatric: Present: Alert, Oriented x 3, Normal Insight, Normal Concentration Vital Signs Reviewed: Yes Vital Signs Temp Pulse Resp BP Pulse Ox 03/05/17 16:24 78 18 130/50 L 03/05/17 10:18 89 18 133/86 96 03/05/17 09:48 76 20 128/82 96 03/05/17 08:48 97.6 F 85 16 127/98 H 98 Temperature: Afebrile Blood Pressure: Normal Pulse: Regular Respiratory Rate: Normal Appearance: Positive for: Well-Appearing, Non-Toxic, Comfortable Pain Distress: None Mental Status: Positive for: Alert and Oriented X 3 Medical Decision Making ED Course and Treatment: 03/05/17 09:23 Impression: A 56 year old male with shortness of breath since this morning. On exam, no acute findings. Differential Diagnosis included but are not limited to: PNA, CHF, ACS Plan: -- CXR -- Labs -- Aspirin, Ativan, Dextrose -- Reassess and disposition Prior Visits: Notes and results from previous visits were reviewed. On 12/08/2016 patient came in requesting for admission to alcohol detox center. Progress Notes: Chest xray shows no cardiomegaly, no pneumothorax, no effusion, no infiltrates. Read and interpreted by me. Alcohol level elevated, will obs pending sobriety will also repeat troponin 03/05/17 16:17 pt now clinically sober states he still feels shortness of breath, speaking full sentences and does not appear in resp. distress dw Dr. Shine, accepted obs to tele pt aware of and agrees with plan 03/05/17 16:29 EKG shows sinus tach, 103bpm, no ST-segment elevations, normal intervals. interpreted by me. - Lab Interpretations I have reviewed the lab results: Yes - EKG Interpretation Interpreted by ED Physician: Yes Type: 12 lead EKG - Medication Orders Current Medication Orders: Folic Acid 1 mg/ Thiamine HCl 100 mg/ Multivitamins/Vitamin C 10 ml/ Dextrose 1 ,011.2 mls @ 100 mls/hr IV .[id number] [place] Last Admin: 03/05/17 10:24 Dose: 100 mls/hr Discontinued Medications Aspirin (Aspirin Chewable) 162 mg PO STAT STA Stop: 03/05/17 09:10 Last Admin: 03/05/17 09:51 Dose: 162 mg Lorazepam (Ativan) 2 mg IVP ONCE ONE Stop: 03/05/17 09:10 Last Admin: 03/05/17 09:51 Dose: 2 mg ED OBSERVATION Discharge: Yes Date of observation admission: 03/05/17 Time of observation admission: 09:01 - Observation admission statement Patient is being placed in observation because:: Pending Sobriety. - Goals of Observation Goals of observation are:: Sobriety, reassess and disposition. - Progress Note Progress Note: 03/05/17 11:30: Patient in no distress, resting comfortably. 03/05/17 15:40 Patient in no acute distress, resting comfortably at this time. - Scribe Statement The provider has reviewed the documentation as recorded by the Frankie Mendoza Provider Scribe Attestation: All medical record entries made by the Scribe were at my direction and personally dictated by me. I have reviewed the chart and agree that the record accurately reflects my personal performance of the history, physical exam, medical decision making, and the department course for this patient. I have also personally directed, reviewed, and agree with the discharge instructions and disposition Disposition/Present on Arrival - Present on Arrival Any Indicators Present on Arrival: No History of DVT/PE: No History of Uncontrolled Diabetes: No Urinary Catheter: No History of Decub. Ulcer: No History Surgical Site Infection Following: None - Disposition Have Diagnosis and Disposition been Completed?: Yes Diagnosis: Alcohol abuse Disposition: HOSPITALIZED Disposition Time: 09:01 Patient Plan: Observation Patient Problems: Current Active Problems Problem Status Onset Alcohol abuse Acute Condition: STABLE
[2017-03-05 10:28] LABS: BASO # 0.05 K/mm3 (0.0-2.0); BASO % 1.1 % (0.0-3.0); EOS % 0.9 % (1.5-5.0); GRAN # 2.71 (1.4-6.5); GRAN % 57.7 % (50.0-68.0); HEMATOCRIT 45.1 % (42.0-52.0); LYMPH # 1.4 (1.2-3.4); LYMPH % 28.8 % (22.0-35.0); MEAN CELL VOLUME 93.8 fl (80.0-105.0); MEAN CORPUSCULAR HEMOGLOBIN 34.1 pg (25.0-35.0); MEAN CORPUSCULAR HGB CONC 36.4 g/dl (31.0-37.0); MEAN PLATELET VOLUME 10.3 fl (7.0-11.0); MONO # 0.5 (0.1-0.6); MONO % 11.5 % (1.0-6.0); RED CELL DISTRIBUTION WIDTH 13.3 % (11.5-14.5); WHITE BLOOD COUNT 4.7 10^3/ul (4.5-11.0)
[2017-03-05 10:38] LABS: ALB/GLOB RATIO 1.3 (1.1-1.8); ALKALINE PHOSPHATASE 84 U/L (38-126); ALT/SGPT 54 U/L (7-56); AST/SGOT 67 U/L (17-59); BILIRUBIN,TOTAL 0.5 mg/dL (0.2-1.3); BLOOD UREA NITROGEN 13 mg/dL (7-21); CALCIUM 8.5 mg/dL (8.4-10.5); CARBON DIOXIDE 22 mmol/L (21-33); CHLORIDE 105 mmol/L (98-107); GFR AFRICAN-AMERICAN > 60; GLUCOSE,RANDOM 89 mg/dL (70-110); POTASSIUM 4.2 mmol/L (3.6-5.0); SODIUM 142 mmol/L (132-148); TOTAL PROTEIN 7.7 g/dL (5.8-8.3)
[2017-03-05 10:39] LABS: PARTIAL THROMBOPLASTIN TIME 28.7 Seconds (23.7-30.8)
[2017-03-05 11:00] LABS: TROPONIN I < 0.01 ng/mL
--- NOTE | 2017-03-05 11:50 | RAD ---
HISTORY: cough COMPARISON: 12/07/2016. FINDINGS: LUNGS: No active pulmonary disease. PLEURA: No significant pleural effusion identified, no pneumothorax apparent. CARDIOVASCULAR: No radiographic findings to suggest acute or significant cardiovascular disease. OSSEOUS STRUCTURES: No significant abnormalities. VISUALIZED UPPER ABDOMEN: Normal. OTHER FINDINGS: None. IMPRESSION: No active disease. No significant interval change compared to the prior examination(s).
[2017-03-05] MEDS: Folic Acid 1 MG, Thiamine 100 MG, Multivitamin (MVI) 10 ML, Potassium Chloride 20 MEQ i... IV SCH (12:00)
[2017-03-05 16:50] LABS: TROPONIN I < 0.01 ng/mL
--- NOTE | 2017-03-05 17:42 | CP.PCM.HP ---
<Villa Espinoza - Last Filed: 03/05/17 17:11> History of Present Illness - History of Present Illness History of Present Illness: IM H&P for Hospitalist Service CC: SOB, Intoxication/withdrawal HPI: This is a 55 yo [place] M with PMH of CAD s/p stents, A-fib (not on AC due to med noncompliance, continued alcohol abuse), Angina, HTN, HLD, chronic alcohol abuse, depression, asthma, and COPD with active tobacco use who presented to [facility] intoxicated and complaining of shortness of breath. Patient was initially observed in the ED, but as he sobered up, he still complained of chest pain, so was called to evaluate for admission. HPI and ROS are limited as patient is a very poor historian (his story changed 4 times). Initially complained of shortness of breath when awaking, but then stated instead it happened while he was on the couch drinking and watching TV, then insisted it happened after drinking. States his last drink was last night, but then admitted to drinking today while watching TV. Denies currently short of breath, stating it comes and goes, but it worries him. Admits to still drinking , but states only 2-3 "small beers" throughout the day. Also complains of bilateral LE calf pain. Denies chest pain, abominal pain, nausea/emesis, chills /fever, diarrhea/constipation, dizziness, room-spinning, cough, pain with breathing, focal weakness/paresthesias, or impaired gait. All other ROS in 12- point system review negative. Of note, blood alcohol level in the ED was 289, so patient is clearly being untruthful regarding his alcohol consumption. PMH: as above PSH: cardiac cath with stenting FHx: denies SH: Lives alone, claims 2-3 small beers daily, 3/4's ppd of cigarettes for > 20 yrs, denies illicits/IVDA Home meds (as confirmed by [facility], last picked up Feb 26 2017): Lopressor 50mg BID, Diovan-HCTZ 320/25mg daily, Norvasc 10mg daily, Simvastatin 40mg nightly, Sertraline 100mg daily PMD: Dr. Victor Present on Admission - Present on Admission Any Indicators Present on Admission: No History of DVT/PE: No History of Uncontrolled Diabetes: No Urinary Catheter: No Review of Systems - Review of Systems All systems: reviewed and no additional remarkable complaints except (as per HPI ) Past Patient History - Infectious Disease Hx of Infectious Diseases: None - Tetanus Immunizations Tetanus Immunization: Unknown - Past Social History Smoking Status: Current Some Days Smoker - CARDIAC Hx Cardiac Disorders: Yes (cad) Hx Hypertension: Yes - PULMONARY Hx Tuberculosis: No - NEUROLOGICAL HX Cerebrovascular Accident: No Hx Seizures: No - HEENT Hx HEENT Problems: No - RENAL Hx Chronic Kidney Disease: No - ENDOCRINE/METABOLIC Hx Endocrine Disorders: No - HEMATOLOGICAL/ONCOLOGICAL Hx Cancer: No - INTEGUMENTARY Hx Dermatological Problems: No - MUSCULOSKELETAL/RHEUMATOLOGICAL Hx Falls: Yes - GASTROINTESTINAL Hx Gastrointestinal Disorders: No - GENITOURINARY/GYNECOLOGICAL Hx Sexually Transmitted Disorders: No - PSYCHIATRIC Hx Psychophysiologic Disorder: Yes Hx Depression: Yes Hx Substance Use: No - SURGICAL HISTORY Hx Cardiac Catheterization: Yes Hx Coronary Stent: Yes (X1) - ANESTHESIA Hx Anesthesia: Yes Hx Anesthesia Reactions: No Hx Malignant Hyperthermia: No Meds Allergies/Adverse Reactions: Allergies Allergy/AdvReac Type Severity Reaction Status Date / Time No Known Allergies Allergy Verified 03/05/17 08:55 Physical Exam - Constitutional Appears: Well, Non-toxic, No Acute Distress, Unkempt, Chronically Ill - Head Exam Head Exam: ATRAUMATIC, NORMAL INSPECTION, NORMOCEPHALIC - Eye Exam Eye Exam: EOMI, Normal appearance, PERRL. absent: Conjunctival injection, Scleral icterus Pupil Exam: NORMAL ACCOMODATION, PERRL. absent: Fixed, Irregular, Unequal - ENT Exam ENT Exam: Mucous Membranes Moist - Neck Exam Neck exam: Positive for: Full Rom. Negative for: Lymphadenopathy, Tenderness - Respiratory Exam Respiratory Exam: Decreased Breath Sounds (mildly decreased breath sounds in all auscultated turcios), Clear to Auscultation Bilateral, Prolonged Expiratory Phase, NORMAL BREATHING PATTERN. absent: Accessory Muscle Use, Chest Wall Tenderness, Rales, Rhonchi, Wheezes, Respiratory Distress - Cardiovascular Exam Cardiovascular Exam: Tachycardia, Irregular Rhythm (irregularly irregular), +S1 , +S2. absent: Bradycardia, REGULAR RHYTHM, JVD, RRR, +S4 - GI/Abdominal Exam GI & Abdominal Exam: Normal Bowel Sounds, Soft. absent: Diminished Bowel Sounds , Distended (protruberant abdomen, but not truly distended), Firm, Guarding, Hyperactive Bowel Sounds, Hypoactive Bowel Sounds, Rigid, Tenderness - Extremities Exam Extremities exam: Positive for: calf tenderness (bilateral calf tenderness), full ROM, normal capillary refill, pedal pulses present (+2 dorsalis pedis bilaterally). Negative for: joint swelling, pedal edema Additional comments: all extremities warm to palpation distally - Back Exam Back exam: absent: CVA tenderness (L), CVA tenderness (R) - Neurological Exam Neurological exam: Alert, Oriented x3 Additional comments: awake and alert, moving all extremities spontaneously, following all commands - Psychiatric Exam Psychiatric exam: Normal Affect, Normal Mood - Skin Skin Exam: Dry, Intact, Normal Color, Warm Results - Vital Signs Recent Vital Signs: Last Vital Signs Temp 97.6 F 03/05/17 08:48 Pulse 78 03/05/17 16:24 Resp 18 03/05/17 16:24 BP 130/50 L 03/05/17 16:24 Pulse Ox 96 03/05/17 10:18 - Labs Result Diagrams: 03/05/17 10:23 03/05/17 10:23 Labs: Laboratory Results - last 24 hr 03/05/17 03/05/17 03/05/17 10:23 10:23 10:23 WBC 4.7 RBC 4.81 Hgb 16.4 Hct 45.1 MCV 93.8 MCH 34.1 MCHC 36.4 RDW 13.3 Plt Count 208 MPV 10.3 Gran % 57.7 Lymph % (Auto) 28.8 [place] % (Auto) 11.5 H Eos % (Auto) 0.9 L Baso % (Auto) 1.1 Gran # 2.71 Lymph # 1.4 [place] # 0.5 Eos # 0.0 Baso # 0.05 PT 10.8 INR 1.00 APTT 28.7 Sodium 142 Potassium 4.2 Chloride 105 Carbon Dioxide 22 Anion Gap 19 BUN 13 Creatinine 0.8 Est GFR ( Amer) > 60 Est GFR (Non-Af Amer) > 60 Random Glucose 89 Calcium 8.5 Total Bilirubin 0.5 AST 67 H ALT 54 Alkaline Phosphatase 84 Lactate Dehydrogenase 674 Total Creatine Kinase 125 Troponin I < 0.01 D NT-Pro-B Natriuret Pep 143 Total Protein 7.7 Albumin 4.3 Globulin 3.4 Albumin/Globulin Ratio 1.3 Alcohol, Quantitative 03/05/17 03/05/17 10:23 15:10 WBC RBC Hgb Hct MCV MCH MCHC RDW Plt Count MPV Gran % Lymph % (Auto) [place] % (Auto) Eos % (Auto) Baso % (Auto) Gran # Lymph # [place] # Eos # Baso # PT INR APTT Sodium Potassium Chloride Carbon Dioxide Anion Gap BUN Creatinine Est GFR ( Amer) Est GFR (Non-Af Amer) Random Glucose Calcium Total Bilirubin AST ALT Alkaline Phosphatase Lactate Dehydrogenase 668 Total Creatine Kinase 117 Troponin I < 0.01 NT-Pro-B Natriuret Pep Total Protein Albumin Globulin Albumin/Globulin Ratio Alcohol, Quantitative 289 H Assessment & Plan - Assessment and Plan (Free Text) Assessment: This is a 55 yo [place] M with PMH of CAD s/p stents, A-fib (not on AC due to med noncompliance, continued alcohol abuse), Angina, HTN, HLD, chronic alcohol abuse, depression, asthma, and COPD with active tobacco use who presented to [facility] intoxicated and complaining of shortness of breath. He is being admitted for observation for possible alcohol withdrawal, and is pending LE duplexes to rule out SOB 2/2 DVT/PE. Plan: 1) Shortness of breath -COPD exacerbation vs aspiration while intoxicated vs ACS vs malingering -CXR obtained in ED, read as no active disease and no significant interval change from prior CXR; no aspiration noted on CXR -EKG in ED notable for sinus tachy, normal intervals; repeat EKG in AM -Satting well on room air, 95-96% at time of exam; no indication for supplemental O2 at this time -Less likely ACS, but given cardiac hx need to rule it out; Trops x2 negative in the ED, will trend 2 more q8 -No signs of fluid overload, unlikely CHF -Duonebs q6 PRN, no need for standing dose right now as not overtly hypoxic or wheezing -Active tobacco user, will order nicotine patch 14mg TD daily 2) Alcohol abuse -Alcohol level 289 in ED, at risk for withdrawal -faint tremors in bilateral UE -Got Ativan 2mg IV x1 in ED -CIWA protocol ordered, Ativan 1mg IV q6 PRN for withdrawal -Banana bag with 20 mEq potassium ordered 100cc/hr 3) Hx AFib and CAD with stents -continue home Lopressor and Simvastatin 4) Hx HTN -continue home Diovan-HCTZ, Norvasc 5) Hx Depression -continue home Zoloft Dispo: Tele obs, pending trops and repeat EKG in AM FEN: Heart-healthy, Banana Bag + KCl 20 mEq at 20cc/hr Access: Peripheral IV Consults: N/A Ppx: Protonix for GI, Heparin SC for DVT Patient reviewed and discussed with attending, Dr. Shine. - Date & Time Date: 03/05/17 Time: 18:12 Decision To Admit - Pt Status Changed To: Hospital Disposition Of: Observation - . Bed Request Type: Telemetry <Fátima DEAN,Swathi - Last Filed: 03/05/17 18:35> Results - Vital Signs Recent Vital Signs: Last Vital Signs Temp 97.6 F 03/05/17 18:19 Pulse 78 03/05/17 18:19 Resp 18 03/05/17 18:19 BP 130/50 L 03/05/17 18:19 Pulse Ox 96 03/05/17 10:18 - Labs Result Diagrams: 03/05/17 10:23 03/05/17 10:23 Labs: Laboratory Results - last 24 hr 03/05/17 03/05/17 03/05/17 10:23 10:23 10:23 WBC 4.7 RBC 4.81 Hgb 16.4 Hct 45.1 MCV 93.8 MCH 34.1 MCHC 36.4 RDW 13.3 Plt Count 208 MPV 10.3 Gran % 57.7 Lymph % (Auto) 28.8 [place] % (Auto) 11.5 H Eos % (Auto) 0.9 L Baso % (Auto) 1.1 Gran # 2.71 Lymph # 1.4 [place] # 0.5 Eos # 0.0 Baso # 0.05 PT 10.8 INR 1.00 APTT 28.7 Sodium 142 Potassium 4.2 Chloride 105 Carbon Dioxide 22 Anion Gap 19 BUN 13 Creatinine 0.8 Est GFR ( Amer) > 60 Est GFR (Non-Af Amer) > 60 Random Glucose 89 Calcium 8.5 Total Bilirubin 0.5 AST 67 H ALT 54 Alkaline Phosphatase 84 Lactate Dehydrogenase 674 Total Creatine Kinase 125 Troponin I < 0.01 D NT-Pro-B Natriuret Pep 143 Total Protein 7.7 Albumin 4.3 Globulin 3.4 Albumin/Globulin Ratio 1.3 Alcohol, Quantitative 03/05/17 03/05/17 10:23 15:10 WBC RBC Hgb Hct MCV MCH MCHC RDW Plt Count MPV Gran % Lymph % (Auto) [place] % (Auto) Eos % (Auto) Baso % (Auto) Gran # Lymph # [place] # Eos # Baso # PT INR APTT Sodium Potassium Chloride Carbon Dioxide Anion Gap BUN Creatinine Est GFR ( Amer) Est GFR (Non-Af Amer) Random Glucose Calcium Total Bilirubin AST ALT Alkaline Phosphatase Lactate Dehydrogenase 668 Total Creatine Kinase 117 Troponin I < 0.01 NT-Pro-B Natriuret Pep Total Protein Albumin Globulin Albumin/Globulin Ratio Alcohol, Quantitative 289 H Attending/Attestation - Attestation I have personally seen and examined this patient.: Yes I have fully participated in the care of the patient.: Yes I have reviewed all pertinent clinical information: Yes Notes (Text): 03/05/17 18:31 Patient was seen and examined with medical planner. Agreed with resident assessment and plan. 56 year old male with past medical history of CAD s/p stents, A-fib not on anticoagulation due to history of alcohol abuse, Angina, HTN, hyperlipidemia, alcohol abuse, depression, asthma and COPD is admitted with history of intermittent dyspnea and alcohol intoxication. Etiology of intermittent dyspnea is not clear.Patient lung sound are clear, EKG is negative for acute ischemic changes.Patient is on room air.We will monitor patient in telemetry and will get serial troponin to rule out ischemia. We will monitor patient for alcohol withdrawal. Issue of ongoing smoking and alcohol abuse was discussed in detail with patient. Management plan was discussed in detail with patient Education was provided.
[2017-03-05] MEDS ORDERED: Albuterol-Ipratrop 3 mg / 0.5 (3 ml) UD IH PRN (18:18)
[2017-03-05 18:25] VITALS: BMI 26.9
[2017-03-05] MEDS ORDERED: Pneumococcal 23-Valent Vaccine IM ONE (18:25)
--- NOTE | 2017-03-05 20:22 | CARD ---
APPROVED REPORT EKG Measurement Heart [id number] <Conclusion> Sinus tachycardia Possible Anterior infarct, age undetermined Abnormal ECG
[2017-03-06 06:42] LABS: ALB/GLOB RATIO 1.3 (1.1-1.8); ALKALINE PHOSPHATASE 99 U/L (38-126); ALT/SGPT 60 U/L (7-56); AST/SGOT 75 U/L (17-59); BILIRUBIN,TOTAL 1.1 mg/dL (0.2-1.3); BLOOD UREA NITROGEN 13 mg/dL (7-21); CARBON DIOXIDE 26 mmol/L (21-33); CHLORIDE 102 mmol/L (98-107); GFR AFRICAN-AMERICAN > 60; GLUCOSE,RANDOM 105 mg/dL (70-110); MAGNESIUM 1.9 mg/dL (1.7-2.2); PHOSPHOROUS 2.9 mg/dL (2.5-4.5); POTASSIUM 4.1 mmol/L (3.6-5.0); SODIUM 137 mmol/L (132-148); TOTAL PROTEIN 7.7 g/dL (5.8-8.3)
[2017-03-06 06:49] LABS: TROPONIN I < 0.01 ng/mL
[2017-03-06 06:54] LABS: BASO # 0.03 K/mm3 (0.0-2.0); BASO % 0.6 % (0.0-3.0); EOS % 0.6 % (1.5-5.0); GRAN # 3.23 (1.4-6.5); GRAN % 62.1 % (50.0-68.0); HEMATOCRIT 43.2 % (42.0-52.0); LYMPH # 1.3 (1.2-3.4); LYMPH % 24.8 % (22.0-35.0); MEAN CELL VOLUME 94.1 fl (80.0-105.0); MEAN CORPUSCULAR HEMOGLOBIN 33.3 pg (25.0-35.0); MEAN CORPUSCULAR HGB CONC 35.4 g/dl (31.0-37.0); MEAN PLATELET VOLUME 10.6 fl (7.0-11.0); MONO # 0.6 (0.1-0.6); MONO % 11.9 % (1.0-6.0); RED CELL DISTRIBUTION WIDTH 13.2 % (11.5-14.5); WHITE BLOOD COUNT 5.2 10^3/ul (4.5-11.0)
[2017-03-06] MEDS: Folic Acid 1 MG, Thiamine 100 MG, Multivitamin (MVI) 10 ML, Potassium Chloride 20 MEQ i... IV SCH ×2 (09:56→15:56)
--- NOTE | 2017-03-06 11:02 | US ---
HISTORY: Leg pain and swelling. Evaluate for DVT PHYSICIAN(S): Amari Collazo MD. TECHNIQUE: Duplex sonography and color-flow Doppler with graded compression were used to evaluate the deep venous systems of both lower extremities. FINDINGS: The visualized deep venous systems of both lower extremities are sonographically normal and compressible. Normal wave forms and augmentation are seen. There is no sonographic evidence for deep venous thrombosis in the visualized segments of both lower extremities. IMPRESSION: No sonographic evidence for deep venous thrombosis in the visualized segments of both lower extremities.
--- NOTE | 2017-03-06 12:15 | CP.PCM.PN ---
<Martell Hare - Last Filed: 03/06/17 12:22> Subjective - Date & Time of Evaluation Date of Evaluation: 03/06/17 Time of Evaluation: 12:15 - Subjective Subjective: Patient was seen and examined at bedside. Patient says he's feeling better now. Patient does reports being unsteady upon standing. Patient denies any chest pain, shortness of breath, lightheadedness, dizziness, changes in vision, changes in urination, or any other complaints. Objective - Vital Signs/Intake and Output Vital Signs (last 24 hours): Temp Pulse Resp BP Pulse Ox 98.9 F 91 H 20 150/86 94 L 03/06/17 08:14 03/06/17 08:14 03/06/17 08:14 03/06/17 09:15 03/06/17 08:14 - Medications Medications: Current Medications Albuterol/Ipratropium (Duoneb 3 Mg/0.5 Mg (3 Ml) Ud) 3 ml IH [id number] PRN PRN Reason: Shortness of Breath Amlodipine Besylate (Norvasc) 10 mg PO DAILY [facility] Last Admin: 03/06/17 09:15 Dose: 10 mg Aspirin (Ecotrin) 81 mg PO DAILY [facility] Atorvastatin Calcium (Lipitor) 20 mg PO DIN [facility] Last Admin: 03/05/17 19:34 Dose: 20 mg Chlordiazepoxide (Librium) 25 mg PO TID [facility] PRN Reason: Protocol Last Admin: 03/06/17 09:24 Dose: 25 mg Heparin Sodium (Porcine) (Heparin) 5,000 units SC Q8 [facility] PRN Reason: Protocol Last Admin: 03/06/17 05:14 Dose: 5,000 units Hydrochlorothiazide (Hydrodiuril) 25 mg PO DAILY [facility] Last Admin: 03/06/17 09:15 Dose: 25 mg Folic Acid 1 mg/ Thiamine HCl 100 mg/ Multivitamins/Vitamin C 10 ml/ Potassium Chloride 20 meq/ Dextrose 1,021.2 mls @ 100 mls/hr IV .[id number] [facility] Last Admin: 03/06/17 09:56 Dose: 100 mls/hr Lorazepam (Ativan) 1 mg IVP Q6H PRN; Protocol PRN Reason: Withdrawal sx Last Admin: 03/06/17 09:24 Dose: 1 mg Metoprolol Tartrate (Lopressor) 50 mg PO BID [facility] Last Admin: 03/06/17 09:15 Dose: 50 mg Nicotine (Nicoderm Cq) 1 patch TD DAILY [facility] Last Admin: 03/06/17 09:15 Dose: 1 patch Pantoprazole Sodium (Protonix Inj) 40 mg IVP DAILY [facility] Last Admin: 03/06/17 09:16 Dose: 40 mg Sertraline HCl (Zoloft) 100 mg PO DAILY [facility] Last Admin: 03/06/17 09:15 Dose: 100 mg Valsartan (Diovan) 320 mg PO DAILY [facility] Last Admin: 03/06/17 09:15 Dose: 320 mg - Labs Labs: 03/06/17 05:00 03/06/17 05:00 PT 10.8 Seconds (9.9-11.8) 03/05/17 10:23 INR 1.00 (0.93-1.08) 03/05/17 10:23 APTT 28.7 Seconds (23.7-30.8) 03/05/17 10:23 - Head Exam Head Exam: ATRAUMATIC, NORMAL INSPECTION, NORMOCEPHALIC - Eye Exam Eye Exam: EOMI, Normal appearance, PERRL Pupil Exam: NORMAL ACCOMODATION, PERRL - ENT Exam ENT Exam: Mucous Membranes Moist - Neck Exam Neck Exam: Full ROM, Normal Inspection - Respiratory Exam Respiratory Exam: Clear to Ausculation Bilateral, NORMAL BREATHING PATTERN. absent: Accessory Muscle Use, Chest Wall Tenderness, Rales, Rhonchi - Cardiovascular Exam Cardiovascular Exam: REGULAR RHYTHM, RRR, +S1, +S2. absent: JVD, Rubs - GI/Abdominal Exam GI & Abdominal Exam: Soft, Normal Bowel Sounds. absent: Firm, Rigid, Tenderness - Back Exam Back Exam: NORMAL INSPECTION. absent: CVA tenderness (R), paraspinal tenderness - Neurological Exam Neurological Exam: Abnormal Gait, Alert, Awake Additional comments: Tremors appreciated in both hands. - Psychiatric Exam Psychiatric exam: Normal Affect, Normal Mood - Skin Skin Exam: Dry, Intact, Normal Color. absent: Urticaria, Vesicles Assessment and Plan - Assessment and Plan (Free Text) Assessment: This is a 55 yo [place] M with PMH of CAD s/p stents, A-fib (not on AC due to med noncompliance, continued alcohol abuse), Angina, HTN, HLD, chronic alcohol abuse, depression, asthma, and COPD with active tobacco use who presented to [facility] intoxicated and complaining of shortness of breath. He is being admitted for observation for possible alcohol withdrawal, and is pending LE duplexes to rule out SOB 2/2 DVT/PE. Plan: 1) Shortness of breath -COPD exacerbation vs aspiration while intoxicated vs ACS vs malingering -CXR obtained in ED, read as no active disease and no significant interval change from prior CXR; no aspiration noted on CXR -EKG in ED notable for sinus tachy, normal intervals; repeat EKG in AM -Satting well on room air, 94% at time of exam; no indication for supplemental O2 at this time. Will consider O2 Cannula if saturation drops below 92% -Less likely ACS, but given cardiac hx need to rule it out; Trops x2 negative in the ED, will trend 2 more q8 -No signs of fluid overload, unlikely CHF -Duonebs q6 PRN, no need for standing dose right now as not overtly hypoxic or wheezing -Active tobacco user, will order nicotine patch 14mg TD daily 2) Alcohol abuse -Alcohol level 289 in ED, at risk for withdrawal -tremors noted UE bilaterally on PE today. -Librium 25 mg Q6 [facility]. -Continue CIWA protocol -Continue Banana bag @100cc/hr 3) Hx AFib and CAD with stents -continue home Lopressor and Simvastatin 4) Hx HTN -continue home Diovan-HCTZ, Norvasc 5) Hx Depression -continue home Zoloft Ppx: Protonix for GI, Heparin SC for DVT <Fátima DEAN,Swathi - Last Filed: 03/08/17 14:12> Objective - Vital Signs/Intake and Output Vital Signs (last 24 hours): Temp Pulse Resp BP Pulse Ox 97.4 F L 118 H 20 166/105 H 95 03/07/17 07:50 03/07/17 10:00 03/07/17 07:50 03/07/17 09:28 03/07/17 07:50 - Labs Labs: 03/06/17 05:00 03/06/17 05:00 PT 10.8 Seconds (9.9-11.8) 03/05/17 10:23 INR 1.00 (0.93-1.08) 09/08/17 10:23 APTT 28.7 Seconds (23.7-30.8) 03/05/17 10:23 Attending/Attestation - Attestation I have personally seen and examined this patient.: Yes I have fully participated in the care of the patient.: Yes I have reviewed all pertinent clinical information, including history, physical exam and plan: Yes Notes (Text): 03/08/17 14:10 Patient was seen and examined with medical authorization specialist. Agreed with resident assessment and plan. 56 year old male with past medical history of CAD s/p cardiac stent , A-fib not on anticoagulation due to history of alcohol abuse, Angina, HTN, hyperlipidemia , alcohol abuse, depression, asthma and COPD is admitted with history of intermittent dyspnea and alcohol intoxication. Patient telemetry is unremarkable, dyspnea has improved. Patient is having alcohol withdrawal today, we will start patient on Librium and monitor closely. Issue of ongoing smoking and alcohol abuse was discussed in detail with patient. Management plan was discussed in detail with patient Education was provided.
--- NOTE | 2017-03-06 16:44 | CON ---
DATE OF SERVICE: 03/06/2017 REQUESTING PROVIDER: Dr. Shine. REASON FOR CONSULTATION: Chest pain. HISTORY OF PRESENT ILLNESS: This is a 56-year-old man, known to me with a history of coronary artery disease, status post prior PCI and longstanding history of alcohol abuse, admitted with acute alcohol intoxication, dyspnea, and some mild chest discomfort. He is seen in bed on remote telemetry. He appears mildly tremulous. He is currently on IV fluids. He denies any chest pain at present time. PAST MEDICAL HISTORY: Notable for coronary artery disease for which he has undergone prior PCI. He has been variably compliant with followup. He has a history of hypertension and hyperlipidemia as well. He has also had history of depression. MEDICATIONS: His medications at home include Diovan HCT 320/25 mg daily, metoprolol 50 mg b.i.d., amlodipine 10 mg daily, simvastatin 40 mg daily, and Zoloft 100 mg daily. ALLERGIES: HE HAS NO REPORTED ALLERGIES. SOCIAL HISTORY: He has a longstanding history of heavy alcohol abuse. He also smokes several cigarettes a day. FAMILY HISTORY: Both parents are from age-related illness. There is no family history of premature heart disease. REVIEW OF SYSTEMS: A 10-point review of systems is notable mainly for problems as mentioned above. PHYSICAL EXAMINATION: GENERAL: He is a tremulous-appearing middle-aged man. VITAL SIGNS: His blood pressure is 150/86 with pulse of 90 and regular, respirations is 16. He is currently afebrile. HEENT: Normocephalic, atraumatic. NECK: Supple. No JVD noted. CHEST: Diffuse scattered rhonchi heard. HEART: PMI in normal position. No pathological murmurs or gallops noted. ABDOMEN: Soft and nontender with normoactive bowel sounds. EXTREMITIES: No clubbing, cyanosis, or edema. SKIN: Warm and dry. PSYCHIATRIC: Mild anxiety; otherwise, normal mood and affect. NEUROLOGIC: Alert and oriented x3. No gross motor or sensory deficits appreciable at the present time. DIAGNOSTIC DATA: Three sets of cardiac enzymes are negative. White count is 5.2, hemoglobin and hematocrit 15.3 and 43.2 with a platelet count of 176,000, potassium 4.1, BUN and creatinine 13 and 0.8, AST and ALT are 75 and 60 respectively. Electrocardiogram reveals sinus tachycardia, prior anterior septal wall myocardial infarction pattern cannot be excluded. Chest x-ray reveals normal cardiac silhouette with clear lung turcios. IMPRESSION: 1. Chest pain. I doubt acute cardiac ischemia, may have some gastroesophageal irritation due to recent heavy alcohol intake. 2. Acute alcohol intoxication. 3. Coronary artery disease, status post remote percutaneous coronary intervention. 4. History of hypertension. 5. History of tobacco abuse. RECOMMENDATIONS: At this time, no further cardiac workup appears necessary. Aspirin should be resumed in his regimen. He did have a stress test approximately a year ago which was normal with no evidence of ischemia and normal ejection fraction. Observation for potential alcohol withdrawal syndrome is advised. Obviously, smoking abstinence and alcohol abstinence are strongly encouraged as well. We will be happy to follow along as needed. Silverio Malin MD
--- NOTE | 2017-03-06 19:24 | CARD ---
APPROVED REPORT EKG Measurement Heart [id number] <Conclusion> Normal sinus rhythm Possible Left atrial enlargement Borderline ECG
[2017-03-07 07:51] VITALS: RESP 20; TEMP 97.4; O2SAT 95
[2017-03-07 09:38] VITALS: BP 166/105
--- NOTE | 2017-03-07 12:45 | CP.PCM.DIS ---
<AnanyaMartell - Last Filed: 03/07/17 12:51> Provider - Provider Date of Admission: 03/05/17 09:01 Attending physician: Troy Cleary MD Primary care physician: Leigh Victor MD Time Spent in preparation of Discharge (in minutes): 40 Hospital Course - Lab Results Lab Results: Most Recent Lab Values WBC 5.2 10^3/ul (4.5-11.0) 03/06/17 05:00 RBC 4.59 10^6/uL (3.5-6.1) 03/06/17 05:00 Hgb 15.3 g/dL (14.0-18.0) 03/06/17 05:00 Hct 43.2 % (42.0-52.0) 03/06/17 05:00 MCV 94.1 fl (80.0-105.0) 03/06/17 05:00 MCH 33.3 pg (25.0-35.0) 03/06/17 05:00 MCHC 35.4 g/dl (31.0-37.0) 03/06/17 05:00 RDW 13.2 % (11.5-14.5) 03/06/17 05:00 Plt Count 176 10^3/uL (120.0-450.0) 03/06/17 05:00 MPV 10.6 fl (7.0-11.0) 03/06/17 05:00 Gran % 62.1 % (50.0-68.0) 03/06/17 05:00 Lymph % (Auto) 24.8 % (22.0-35.0) 03/06/17 05:00 Hemphill % (Auto) 11.9 % (1.0-6.0) H 03/06/17 05:00 Eos % (Auto) 0.6 % (1.5-5.0) L 03/06/17 05:00 Baso % (Auto) 0.6 % (0.0-3.0) 03/06/17 05:00 Gran # 3.23 (1.4-6.5) 03/06/17 05:00 Lymph # 1.3 (1.2-3.4) 03/06/17 05:00 Hemphill # 0.6 (0.1-0.6) 03/06/17 05:00 Eos # 0.0 (0.0-0.7) 03/06/17 05:00 Baso # 0.03 K/mm3 (0.0-2.0) 03/06/17 05:00 PT 10.8 Seconds (9.9-11.8) 03/05/17 10:23 INR 1.00 (0.93-1.08) 03/05/17 10:23 APTT 28.7 Seconds (23.7-30.8) 03/05/17 10:23 Sodium 137 mmol/L (132-148) 03/06/17 05:00 Potassium 4.1 mmol/L (3.6-5.0) 03/06/17 05:00 Chloride 102 mmol/L (98-107) 03/06/17 05:00 Carbon Dioxide 26 mmol/L (21-33) 03/06/17 05:00 Anion Gap 13 (10-20) 03/06/17 05:00 BUN 13 mg/dL (7-21) 03/06/17 05:00 Creatinine 0.8 mg/dL (0.5-1.4) 03/06/17 05:00 Est GFR ( Amer) > 60 03/06/17 05:00 Est GFR (Non-Af Amer) > 60 03/06/17 05:00 Random Glucose 105 mg/dL (70-110) 03/06/17 05:00 Calcium 9.0 mg/dL (8.4-10.5) 03/06/17 05:00 Phosphorus 2.9 mg/dL (2.5-4.5) 03/06/17 05:00 Magnesium 1.9 mg/dL (1.7-2.2) 03/06/17 05:00 Total Bilirubin 1.1 mg/dL (0.2-1.3) 03/06/17 05:00 AST 75 U/L (17-59) H 03/06/17 05:00 ALT 60 U/L (7-56) H 03/06/17 05:00 Alkaline Phosphatase 99 U/L (38-126) 03/06/17 05:00 Lactate Dehydrogenase 668 U/L (333-699) 03/05/17 15:10 Total Creatine Kinase 117 U/L (35-230) 03/05/17 15:10 Troponin I < 0.01 ng/mL 03/06/17 05:00 NT-Pro-B Natriuret Pep 143 pg/mL (0-450) 03/05/17 10:23 Total Protein 7.7 g/dL (5.8-8.3) 03/06/17 05:00 Albumin 4.3 g/dL (3.0-4.8) 03/06/17 05:00 Globulin 3.4 gm/dL 03/06/17 05:00 Albumin/Globulin Ratio 1.3 (1.1-1.8) 03/06/17 05:00 Alcohol, Quantitative 289 mg/dL (0-10) H 03/05/17 10:23 - Hospital Course Hospital Course: This is a 55 yo [place] M with PMH of CAD s/p stents, A-fib (not on AC due to med noncompliance, continued alcohol abuse), Angina, HTN, HLD, chronic alcohol abuse, depression, asthma, and COPD with active tobacco use who [place] [facility] [place] and complaining of shortness of breath. Patient was initially observed in the ED, but as he sobered up, he still complained of chest pain, so IM was called to evaluate for admission. HPI and ROS are limited as patient is a very poor historian (his story changed 4 times). Initially complained of shortness of breath when awaking, but then stated instead it happened while he was on the couch drinking and watching TV, then insisted it happened after drinking. States his last drink was last night, but then admitted to drinking today while watching TV. Denies currently short of breath, stating it comes and goes, but it worries him. Admits to still drinking, but states only 2-3 "small beers" throughout the day. Also complains of bilateral LE calf pain. Denies chest pain, abominal pain, nausea/emesis, chills/fever, diarrhea/ constipation, dizziness, room-spinning, cough, pain with breathing, focal weakness/paresthesias, or impaired gait. -CXR(03/05) obtained in ED, read as no active disease and no significant interval change from prior CXR; no aspiration noted on CXR -EKG(03/06) in ED notable for sinus tachy, normal intervals. -Duplex u/s of le(03/05) bilaterally were negative for DVT. -Cardio was consulted on 03/06. Patient was treated per [facility] protocols and repleted via banana bag. Patient was couseled on AA meetings and to follow up as an outpatient. Patient was walking around with a steady gait. Patient tremors showed a marked decrease in severity from initial admission. Patient vital signs were stable and was discharged on 03/07/17. Discharge Exam - Head Exam Head Exam: ATRAUMATIC, NORMAL INSPECTION, NORMOCEPHALIC - Eye Exam Eye Exam: EOMI, Normal appearance, PERRL Pupil Exam: NORMAL ACCOMODATION, PERRL. absent: Irregular - Respiratory Exam Respiratory Exam: Clear to PA & Lateral, NORMAL BREATHING PATTERN, UNREMARKABLE. absent: Accessory Muscle Use, Chest Wall Tenderness, Respiratory Distress - Cardiovascular Exam Cardiovascular Exam: REGULAR RHYTHM, RRR, +S1, +S2. absent: JVD, Rubs - GI/Abdominal Exam GI & Abdominal Exam: Normal Bowel Sounds, Unremarkable - Extremities Exam Extremities exam: full ROM - Back Exam Back exam: NORMAL INSPECTION. absent: CVA tenderness (L), CVA tenderness (R), paraspinal tenderness - Neurological Exam Neurological exam: Alert, CN II-XII Intact, Oriented x3 Additional comments: faint tremor noted in ue bilaterally - Psychiatric Exam Psychiatric exam: Normal Affect, Normal Mood - Skin Skin Exam: Dry, Intact, Normal Color Discharge Plan - Discharge Medications Prescriptions: amLODIPine [Norvasc] 10 mg PO DAILY #30 tab Aspirin [Ecotrin] 81 mg PO DAILY #30 chlordiazePOXIDE [Librium] 10 mg PO TID #9 cap Metoprolol Tartrate [Lopressor] 50 mg PO BID #60 tab - Follow Up Plan Condition: STABLE Disposition: HOME/ ROUTINE Instructions: Abuse of Alcohol (GEN) Additional Instructions: 1. Follow up with PMD Dr. Mccullough in 3 days. 2. Follow up with Dr. Whitfield cardiology. 3. Stop alcohol abuse. 4. Follow up with AA meeting/ AA rehab. 5. Patient should return to Emergency room for any new or worsening symptoms. Referrals: Silverio Malin MD [Staff Provider] - Leigh Hester MD [Primary Care Provider] - <Troy Cleary - Last Filed: 03/08/17 19:13> Provider - Provider Date of Admission: 03/05/17 09:01 Attending physician: Troy Cleary MD Primary care physician: Leigh Victor MD Hospital Course - Lab Results Lab Results: Most Recent Lab Values WBC 5.2 10^3/ul (4.5-11.0) 03/06/17 05:00 RBC 4.59 10^6/uL (3.5-6.1) 03/06/17 05:00 Hgb 15.3 g/dL (14.0-18.0) 03/06/17 05:00 Hct 43.2 % (42.0-52.0) 03/06/17 05:00 MCV 94.1 fl (80.0-105.0) 03/06/17 05:00 MCH 33.3 pg (25.0-35.0) 03/06/17 05:00 MCHC 35.4 g/dl (31.0-37.0) 03/06/17 05:00 RDW 13.2 % (11.5-14.5) 03/06/17 05:00 Plt Count 176 10^3/uL (120.0-450.0) 03/06/17 05:00 MPV 10.6 fl (7.0-11.0) 03/06/17 05:00 Gran % 62.1 % (50.0-68.0) 03/06/17 05:00 Lymph % (Auto) 24.8 % (22.0-35.0) 03/06/17 05:00 Hemphill % (Auto) 11.9 % (1.0-6.0) H 03/06/17 05:00 Eos % (Auto) 0.6 % (1.5-5.0) L 03/06/17 05:00 Baso % (Auto) 0.6 % (0.0-3.0) 03/06/17 05:00 Gran # 3.23 (1.4-6.5) 03/06/17 05:00 Lymph # 1.3 (1.2-3.4) 03/06/17 05:00 Hemphill # 0.6 (0.1-0.6) 03/06/17 05:00 Eos # 0.0 (0.0-0.7) 03/06/17 05:00 Baso # 0.03 K/mm3 (0.0-2.0) 03/06/17 05:00 PT 10.8 Seconds (9.9-11.8) 03/05/17 10:23 INR 1.00 (0.93-1.08) 03/05/17 10:23 APTT 28.7 Seconds (23.7-30.8) 03/05/17 10:23 Sodium 137 mmol/L (132-148) 03/06/17 05:00 Potassium 4.1 mmol/L (3.6-5.0) 03/06/17 05:00 Chloride 102 mmol/L (98-107) 03/06/17 05:00 Carbon Dioxide 26 mmol/L (21-33) 03/06/17 05:00 Anion Gap 13 (10-20) 03/06/17 05:00 BUN 13 mg/dL (7-21) 03/06/17 05:00 Creatinine 0.8 mg/dL (0.5-1.4) 03/06/17 05:00 Est GFR ( Amer) > 60 03/06/17 05:00 Est GFR (Non-Af Amer) > 60 03/06/17 05:00 Random Glucose 105 mg/dL (70-110) 03/06/17 05:00 Calcium 9.0 mg/dL (8.4-10.5) 03/06/17 05:00 Phosphorus 2.9 mg/dL (2.5-4.5) 03/06/17 05:00 Magnesium 1.9 mg/dL (1.7-2.2) 03/06/17 05:00 Total Bilirubin 1.1 mg/dL (0.2-1.3) 03/06/17 05:00 AST 75 U/L (17-59) H 03/06/17 05:00 ALT 60 U/L (7-56) H 03/06/17 05:00 Alkaline Phosphatase 99 U/L (38-126) 03/06/17 05:00 Lactate Dehydrogenase 668 U/L (333-699) 03/05/17 15:10 Total Creatine Kinase 117 U/L (35-230) 03/05/17 15:10 Troponin I < 0.01 ng/mL 03/06/17 05:00 NT-Pro-B Natriuret Pep 143 pg/mL (0-450) 03/05/17 10:23 Total Protein 7.7 g/dL (5.8-8.3) 03/06/17 05:00 Albumin 4.3 g/dL (3.0-4.8) 03/06/17 05:00 Globulin 3.4 gm/dL 03/06/17 05:00 Albumin/Globulin Ratio 1.3 (1.1-1.8) 03/06/17 05:00 Alcohol, Quantitative 289 mg/dL (0-10) H 03/05/17 10:23 Attending/Attestation - Attestation I have personally seen and examined this patient.: Yes I have fully participated in the care of the patient.: Yes I have reviewed all pertinent clinical information, including history, physical exam and plan: Yes Notes (Text): 03/08/17 19:11 Attending note ; Patient seen and examined with the resident . Patient is a 56 year old male with past medical history of CAD s/p cardiac stent , A-fib not on anticoagulation due to history of alcohol abuse, Angina, HTN, hyperlipidemia, alcohol abuse, depression, asthma and COPD is admitted with history of intermittent dyspnea and alcohol intoxication. Treated with IV Ativan on banana bag. Withdrawal symptoms resolved. Tolerating diet well. Ambulating fine. No tremors noted. Patient will follow-up with PMD Dr. Mccullough upon discharge. Diagnosis; Alcohol abuse History of A. fib Hypertension Hypercholesterolemia Noncompliance with follow-up 03/08/17 19:13
[2017-03-07 12:48] VITALS: PULSE 118
== END 2017-03-07 13:51 | disposition home or self-care (01) ==
LOC: ED 08:39 → EROBSV 09:01 → ERH 16:19 → 3RNO 20:04
PROVIDERS: ADMIT Internal Medicine; ATTEND Internal Medicine
DX: F10.239 Alcohol dependence with withdrawal, unspecified (principal); F10.229 Alcohol dependence with intoxication, unspecified; F17.210 Nicotine dependence, cigarettes, uncomplicated; J44.9 Chronic obstructive pulmonary disease, unspecified; I48.91 Unspecified atrial fibrillation; I10 Essential (primary) hypertension; F32.9 Major depressive disorder, single episode, unspecified; I25.119 Atherosclerotic heart disease of native coronary artery with unspecified angina pectoris; E78.5 Hyperlipidemia, unspecified; Y90.8 Blood alcohol level of 240 mg/100 ml or more; Z95.5 Presence of coronary angioplasty implant and graft; Z91.14 Patient's other noncompliance with medication regimen
CPT/HCPCS: 36415; 71010; 80053; 80320; 82550; 83615; 83735; 83880; 84100; 84484; 85025; 85610; 85730; 93005; 93970; 96372; 96374; 96375; 96376; 99285; C9113; G0378; J1644; J2060; J3411; J7070

== ENCOUNTER 2017-06-01 10:00 | Emergency (ER) | payer OTHER ==
[2017-06-01 10:04] VITALS: BMI 28.2
[2017-06-01] MEDS ORDERED: Multivitamin (MVI) 10 ML, Thiamine 100 MG, Folic Acid 1 MG in Sodium Chloride 0.9% 1,00... IV ONE (10:45)
--- NOTE | 2017-06-01 10:45 | ED PDOC ---
Arrival/HPI - General Chief Complaint: Alcohol Ingestion Time Seen by Provider: 06/01/17 10:26 Historian: Patient - History of Present Illness Narrative History of Present Illness (Text): 06/01/17 56 yo male w/hx of alcohol abuse, walk in reports " not feeling good". At present time, pt appears intoxicated, poor historian. Otherwise, pt denies CP, SOB, dyspnea, recent illness, abd. pain, V/D, rash, denies recent known trauma or injury. Pt verbal, admits, " was drinking a lot for past few weeks". At the time of evaluation, pt appears not in nay apparent distress. Past Medical History - Provider Review Nursing Documentation Reviewed: Yes - Travel History Have you recently traveled outside [place] w/in the past 3 mons?: No - Infectious Disease Hx of Infectious Diseases: None - Tetanus Immunization Tetanus Immunization: Unknown - Cardiac Hx Cardiac Disorders: Yes (cad) Hx Hypertension: Yes - Pulmonary Hx Tuberculosis: No - Neurological HX Cerebrovascular Accident: No Hx Seizures: No - HEENT Hx HEENT Disorder: No - Renal Hx Renal Disorder: No - Endocrine/Metabolic Hx Endocrine Disorders: No - Hematological/Oncological Hx Cancer: No - Integumentary Hx Dermatological Disorder: No - Musculoskeletal/Rheumatological Hx Falls: Yes (past) - Gastrointestinal Hx Gastrointestinal Disorders: No - Genitourinary/Gynecological Hx Sexually Transmitted Diseases: No - Psychiatric Hx Psychophysiologic Disorder: Yes Hx Depression: Yes Hx Substance Use: No - Past Surgical History Past Surgical History: No Previous - Surgical History Hx Cardiac Catheterization: Yes Hx Coronary Stent: Yes (X1) - Anesthesia Hx Anesthesia: Yes Hx Anesthesia Reactions: No Hx Malignant Hyperthermia: No - Suicidal Assessment Feels Threatened In Home Enviroment: No Family/Social History - Physician Review Nursing Documentation Reviewed: Yes Family/Social History: No Known Family HX Smoking Status: Light Smoker < 10 Cigarettes Daily Hx Alcohol Use: Yes (beer daily) Frequency of alcohol use: Daily Amount per day: 5 Hx Substance Use: No Hx Substance Use Treatment: No Allergies/Home Meds Allergies/Adverse Reactions: Allergies No Known Allergies Allergy (Verified 06/01/17 10:04) Home Medications: Home Meds Medication Instructions Recorded Confirmed Sertraline [Zoloft] 100 mg PO DAILY 03/05/17 06/01/17 Simvastatin 40 mg PO QPM 03/05/17 06/01/17 Valsartan/Hydrochlorothiazide 1 each PO DAILY 03/05/17 06/01/17 [Diovan Hct 320-25 mg Tablet] Review of Systems - Physician Review All systems were reviewed & negative as marked: Yes - Review of Systems Constitutional: Fatigue Eyes: Normal ENT: Normal Respiratory: Normal Cardiovascular: Normal Gastrointestinal: Normal Genitourinary Male: Normal Musculoskeletal: Normal Skin: Normal Neurological: Normal Endocrine: Normal Hemo/Lymphatic: Normal Psychiatric: Other (intoxicated) Physical Exam Vital Signs Reviewed: Yes Vital Signs Temp Pulse Resp BP Pulse Ox 06/01/17 16:35 97.9 F 91 H 18 122/80 100 06/01/17 10:07 97.8 F 89 20 118/70 98 Temperature: Afebrile Blood Pressure: Normal Pulse: Regular Respiratory Rate: Normal Appearance: Positive for: Well-Appearing, Non-Toxic, Comfortable Pain Distress: None Mental Status: Positive for: Alert and Oriented X 3 - Systems Exam Head: Present: Atraumatic, Normocephalic Pupils: Present: PERRL Conjunctiva: Present: Injected (B/L) Mouth: Present: Moist Mucous Membranes, Normal Lips, Normal Tounge. No: Drooling Pharnyx: Present: Other (strong alcohol odor). No: ERYTHEMA Nose (Internal): Present: Normal Inspection, Moist Neck: Present: Trachea Midline. No: MIDLINE TENDERNESS, JVD, Bruit Respiratory/Chest: Present: Clear to Auscultation, Good Air Exchange. No: Respiratory Distress, Accessory Muscle Use Cardiovascular: Present: Regular Rate and Rhythm, Normal S1, S2. No: Murmurs Abdomen: Present: Normal Bowel Sounds. No: Tenderness, Distention, Peritoneal Signs Back: No: CVA Tenderness Upper Extremity: Present: Normal ROM, NORMAL PULSES, Neurovascularly Intact. No : Cyanosis, Edema, Deformity Lower Extremity: Present: Normal Inspection, Normal ROM. No: Edema, Tenderness , Deformity Neurological: Present: GCS=15, Speech Normal Skin: Present: Warm, Dry, Normal Color. No: Rashes Psychiatric: Present: Alert, Oriented x 3, Normal Insight, Normal Concentration Medical Decision Making ED Course and Treatment: 06/01/17 After my initial evaluation, pt was placed in OBS status due to alcohol intoxication with aspiration precautions. At 11:58, pt resting comfortably, not in any apparent distress. Pt easily arousal to verbal stimuli. No sz activity in ED, Neurologicaly intact. Blood work review and appears without acute findings. Alcohol level 385. Hydration, banana bag infusing. At 13:45, pt resting comfortably, not in any apparent distress. Pt easily arousal to verbal stimuli. No sz activity in ED, Neurologicaly intact. At 16:49, pt is asking for food, tolerate Po well in ED. Neurologicaly intact. At 17:39, comfortable, not in any apparent distress. Neuorlogicaly intact. PT WAS OBS IN ED FOR 9 HOURS NOW. At 19:16, On re-eval, pt is awake, alert#3 now, not in any apparent distress. Ambulatory in ED with stable gait. Afebrile, hemodynamicaly stable. PusleOx 99% RA Head: AT/NC Neck: SUpple, (-) JVD Lungs: CTA B/L, BS equal B/L. CVS: (+)S1S2, reg. ABd: benign. Neurologicaly intact. Pt has clinical findings c/w alcohol intoxication. Pt advised on course of ds. ref. to f/u with PMD, Detox in 2-3 days for re-eavl. return to ED if any worsening or new changes. - Lab Interpretations Lab Results: 06/01/17 11:20 06/01/17 11:20 Lab Results 06/01/17 15:51: Urine Opiates Screen Negative, Urine Methadone Screen Negative, Ur Barbiturates Screen Negative, Ur Phencyclidine Scrn Negative, Ur Amphetamines Screen Negative, U Benzodiazepines Scrn Negative, U Oth Cocaine Metabols Negative, U Cannabinoids Screen Negative 06/01/17 15:51: Urine Color Yellow, Urine Appearance Clear, Urine pH 6.0, Ur Specific [place] <= 1.005, Urine Protein Negative, Urine Glucose (UA) Negative, Urine Ketones Negative, Urine Blood Small H, Urine Nitrate Negative, Urine Bilirubin Negative, Urine Urobilinogen 0.2, Ur Leukocyte Esterase Negative, Urine RBC 2 - 5, Urine WBC 0 - 2, Ur Epithelial Cells None, Urine Bacteria Few 06/01/17 11:20: Alcohol, Quantitative 384 H* 06/01/17 11:20: Sodium 133, Potassium 4.3, Chloride 97 L, Carbon Dioxide 22, Anion Gap 18, BUN 15, Creatinine 0.8, Est GFR ( Amer) > 60, Est GFR (Non- Af Amer) > 60, Random Glucose 90, Calcium 8.1 L, Total Bilirubin 0.5, AST 95 H D , ALT 59 H, Alkaline Phosphatase 83, Total Protein 7.5, Albumin 4.5, Globulin 3.0, Albumin/Globulin Ratio 1.5 06/01/17 11:20: WBC 4.6, RBC 4.36, Hgb 14.5, Hct 40.3 L, MCV 92.4, MCH 33.3, MCHC 36.0, RDW 12.9, Plt Count 127, MPV 9.9, Gran % 58.9, Lymph % (Auto) 32.7, [place] % (Auto) 7.5 H, Eos % (Auto) 0.2 L, Baso % (Auto) 0.7, Gran # 2.69, Lymph # 1.5, [place] # 0.3, Eos # 0.0, Baso # 0.03 I have reviewed the lab results: Yes - RAD Interpretation Radiology Orders: 06/01/17 10:47 CHEST PORTABLE [RAD] Stat (-) acute findings, per radiology reading - EKG Interpretation EKG Interpretation (Text): 06/01/17 11:14 SR@75/min, NAD, 1st degrees AVB, t wave inversion in III, no acute ST-T changes. - Medication Orders Current Medication Orders: Multivitamins/Vitamin C 10 ml/Thiamine HCl 100 mg/ Folic Acid 1 mg/ Sodium Chloride 1,011.2 mls @ 100 mls/hr IV ONCE ONE Stop: 06/01/17 20:51 Last Admin: 06/01/17 11:49 Dose: 100 mls/hr eMAR Start Stop Document 06/01/17 11:49 EQ (Rec: 06/01/17 11:50 EQ [facility] [id number]) Intravenous Solution Start Date 06/01/17 Start Time 11:49 Discontinued Medications Ondansetron HCl (Zofran Inj) 4 mg IVP ONCE ONE Stop: 06/01/17 10:49 Last Admin: 06/01/17 11:31 Dose: 4 mg IVP Administration Document 06/01/17 11:31 EQ (Rec: 06/01/17 11:31 EQ [facility] [id number]) Charges for Administration # of IVP Administrations 1 Disposition/Present on Arrival - Present on Arrival Any Indicators Present on Arrival: No History of DVT/PE: No History of Uncontrolled Diabetes: No Urinary Catheter: No History of Decub. Ulcer: No History Surgical Site Infection Following: None - Disposition Have Diagnosis and Disposition been Completed?: Yes Diagnosis: Alcohol intoxication Disposition: HOME/ ROUTINE Disposition Time: 19:20 Patient Plan: Discharge Condition: STABLE Discharge Instructions (ExitCare): Alcohol Intoxication (ED) Additional Instructions: FOLLOW UP WITH PMD, DETOX IN 2-3 DAYS FOR RE-EVALUATION. RETURN TO ED IF ANY NEW CHANGES. Referrals: PCP,NO [Primary Care Provider] - Follow up with primary Alcoholics Anonymous [Outside] - Follow up with primary [facility] [Outside] - Follow up with primary Forms: [facility] (Albanian)
--- NOTE | 2017-06-01 11:22 | RAD ---
HISTORY: weak, intoxicated COMPARISON: 03/05/2017 FINDINGS: LUNGS: No active pulmonary disease. PLEURA: No significant pleural effusion identified, no pneumothorax apparent. CARDIOVASCULAR: Normal. OSSEOUS STRUCTURES: No significant abnormalities. VISUALIZED UPPER ABDOMEN: Normal. OTHER FINDINGS: None. IMPRESSION: No active disease.
[2017-06-01 11:40] LABS: BASO # 0.03 K/mm3 (0.0-2.0); BASO % 0.7 % (0.0-3.0); EOS % 0.2 % (1.5-5.0); GRAN # 2.69 (1.4-6.5); GRAN % 58.9 % (50.0-68.0); HEMATOCRIT 40.3 % (42.0-52.0); LYMPH # 1.5 (1.2-3.4); LYMPH % 32.7 % (22.0-35.0); MEAN CELL VOLUME 92.4 fl (80.0-105.0); MEAN CORPUSCULAR HEMOGLOBIN 33.3 pg (25.0-35.0); MEAN PLATELET VOLUME 9.9 fl (7.0-11.0); MONO # 0.3 (0.1-0.6); MONO % 7.5 % (1.0-6.0); RED CELL DISTRIBUTION WIDTH 12.9 % (11.5-14.5); WHITE BLOOD COUNT 4.6 10^3/ul (4.5-11.0)
[2017-06-01 11:48] LABS: ALB/GLOB RATIO 1.5 (1.1-1.8); ALKALINE PHOSPHATASE 83 U/L (38-126); ALT/SGPT 59 U/L (7-56); AST/SGOT 95 U/L (17-59); BILIRUBIN,TOTAL 0.5 mg/dL (0.2-1.3); BLOOD UREA NITROGEN 15 mg/dL (7-21); CALCIUM 8.1 mg/dL (8.4-10.5); CARBON DIOXIDE 22 mmol/L (21-33); CHLORIDE 97 mmol/L (98-107); GFR AFRICAN-AMERICAN > 60; GLUCOSE,RANDOM 90 mg/dL (70-110); POTASSIUM 4.3 mmol/L (3.6-5.0); SODIUM 133 mmol/L (132-148); TOTAL PROTEIN 7.5 g/dL (5.8-8.3)
--- NOTE | 2017-06-01 12:32 | CARD ---
APPROVED REPORT EKG Measurement Heart [id number] <Conclusion> Sinus rhythm with 1st degree AV block Otherwise normal ECG
[2017-06-01 16:06] LABS: URINE BILIRUBIN NEGATIVE (NEGATIVE); URINE BLOOD SMALL (NEGATIVE); URINE GLUCOSE (UA) NEGATIVE (NEGATIVE); URINE KETONE NEGATIVE (NEGATIVE); URINE LEUKOCYTE ESTERASE NEGATIVE Leu/uL (NEGATIVE); URINE PROTEIN NEGATIVE mg/dL (<30 mg/dL); URINE UROBILINOGEN 0.2 E.U./dL (<1 E.U./dL)
[2017-06-01 16:10] LABS: URINE APPEARANCE CLEAR (CLEAR); URINE COLOR YELLOW (YELLOW)
[2017-06-01 16:17] LABS: URINE WBC 0 - 2 /hpf (0-6)
[2017-06-01 16:18] LABS: URINE BACTERIA FEW (NEG)
[2017-06-02 01:58] VITALS: BP 134/72; PULSE 89; RESP 17; O2SAT 98
[2017-06-02 01:59] VITALS: TEMP 98.2
== END 2017-06-02 01:58 | disposition home or self-care (01) ==
LOC: ED 10:00
DX: F10.120 Alcohol abuse with intoxication, uncomplicated (principal); Y90.8 Blood alcohol level of 240 mg/100 ml or more; I10 Essential (primary) hypertension; Z95.5 Presence of coronary angioplasty implant and graft; F17.210 Nicotine dependence, cigarettes, uncomplicated
CPT/HCPCS: 71010; 80053; 80320; 80324; 80345; 80346; 80349; 80353; 80358; 80361; 81001; 83992; 85025; 93005; 96374; 99284; J2405; J3411; J7040

== ENCOUNTER 2017-06-17 11:35 | Emergency (ER) | payer OTHER ==
[2017-06-17 11:36] VITALS: BMI 28.2
[2017-06-17 12:03] VITALS: TEMP 97.8
--- NOTE | 2017-06-17 12:16 | ED PDOC ---
Arrival/HPI - General Chief Complaint: Alcohol Ingestion Time Seen by Provider: 06/17/17 11:37 Historian: Patient - History of Present Illness Narrative History of Present Illness (Text): 06/17/17 12:15 A 56 year old male, whose past medical history includes alcohol abuse, presents to the emergency department for alcohol intoxication. Reports to drinking alcohol for the past three days. Patient is requesting "a place to stay". Patient denies any other complaints at this time. Symptom Onset: Sudden Symptom Course: Unchanged Activities at Onset: Rest Context: Home Past Medical History - Provider Review Nursing Documentation Reviewed: Yes - Infectious Disease Hx of Infectious Diseases: None - Tetanus Immunization Tetanus Immunization: Unknown - Cardiac Hx Cardiac Disorders: Yes (cad) Hx Hypertension: Yes - Pulmonary Hx Tuberculosis: No - Neurological HX Cerebrovascular Accident: No Hx Seizures: No - HEENT Hx HEENT Disorder: No - Renal Hx Renal Disorder: No - Endocrine/Metabolic Hx Endocrine Disorders: No - Hematological/Oncological Hx Cancer: No - Integumentary Hx Dermatological Disorder: No - Musculoskeletal/Rheumatological Hx Falls: Yes (past) - Gastrointestinal Hx Gastrointestinal Disorders: No - Genitourinary/Gynecological Hx Sexually Transmitted Diseases: No - Psychiatric Hx Psychophysiologic Disorder: Yes Hx Depression: Yes Hx Substance Use: No - Past Surgical History Past Surgical History: No Previous - Surgical History Hx Cardiac Catheterization: Yes Hx Coronary Stent: Yes (X1) - Anesthesia Hx Anesthesia: Yes Hx Anesthesia Reactions: No Hx Malignant Hyperthermia: No - Suicidal Assessment Feels Threatened In Home Enviroment: No Family/Social History - Physician Review Nursing Documentation Reviewed: Yes Family/Social History: No Known Family HX Smoking Status: Light Smoker < 10 Cigarettes Daily Hx Alcohol Use: Yes (beer daily) Frequency of alcohol use: Daily Amount per day: 5 Hx Substance Use: No Hx Substance Use Treatment: No Allergies/Home Meds Allergies/Adverse Reactions: Allergies No Known Allergies Allergy (Verified 06/17/17 11:49) Home Medications: Home Meds Medication Instructions Recorded Confirmed No Known Home Med 06/17/17 06/17/17 Review of Systems - Physician Review All systems were reviewed & negative as marked: Yes - Review of Systems Constitutional: absent: Fevers Respiratory: absent: SOB Physical Exam Vital Signs Reviewed: Yes Vital Signs Temp Pulse Resp BP Pulse Ox 06/17/17 17:14 94 H 19 152/78 H 98 06/17/17 12:02 97.8 F 87 16 156/90 H 99 Temperature: Afebrile Blood Pressure: Hypertensive Pulse: Regular Respiratory Rate: Normal Appearance: Positive for: Comfortable Pain Distress: None Mental Status: Positive for: Alert and Oriented X 3 Finger Stick Blood Glucose: 93 - Systems Exam Head: Present: Atraumatic, Normocephalic Pupils: Present: PERRL Extroacular Muscles: Present: EOMI Conjunctiva: Present: Normal Mouth: Present: Moist Mucous Membranes Neck: Present: Normal Range of Motion Respiratory/Chest: Present: Clear to Auscultation, Good Air Exchange. No: Respiratory Distress, Accessory Muscle Use Cardiovascular: Present: Regular Rate and Rhythm, Normal S1, S2. No: Murmurs Abdomen: Present: Normal Bowel Sounds. No: Tenderness, Distention, Peritoneal Signs Back: Present: Normal Inspection Upper Extremity: Present: Normal Inspection. No: Cyanosis, Edema Lower Extremity: Present: Normal Inspection. No: Edema Neurological: Present: GCS=15, CN II-XII Intact, Speech Normal Skin: Present: Warm, Dry, Normal Color. No: Rashes Psychiatric: Present: Intoxicated Medical Decision Making ED Course and Treatment: 06/17/17 12:13 Impression: A 56 year old male with alcohol intoxication. Plan: -- Reassess and disposition Progress Notes: Pending sobriety. 06/17/17 12:17 Patient is sleeping, in no acute distress. 06/17/17 14:00 Patient is sleeping. 06/17/17 16:29 Patient is resting comfortably, in no acute distress. 06/17/17 17:42 Patient is awake, alert and ambulating with steady gait. Patient taking PO and is stable for discharge. - Scribe Statement The provider has reviewed the documentation as recorded by the Frankie Best Provider Scribe Attestation: All medical record entries made by the Scribnina were at my direction and personally dictated by me. I have reviewed the chart and agree that the record accurately reflects my personal performance of the history, physical exam, medical decision making, and the department course for this patient. I have also personally directed, reviewed, and agree with the discharge instructions and disposition. Disposition/Present on Arrival - Present on Arrival Any Indicators Present on Arrival: No History of DVT/PE: No History of Uncontrolled Diabetes: No Urinary Catheter: No History of Decub. Ulcer: No History Surgical Site Infection Following: None - Disposition Have Diagnosis and Disposition been Completed?: Yes Diagnosis: Alcohol abuse Disposition: HOME/ ROUTINE Disposition Time: 05:45 Condition: STABLE Discharge Instructions (ExitCare): Alcohol Intoxication (ED) Referrals: Alcoholics Anonymous [Outside] - Follow up with primary Forms: [employer] (South African)
[2017-06-17 17:15] VITALS: BP 152/78; PULSE 94; RESP 19; O2SAT 98
== END 2017-06-17 17:15 | disposition home or self-care (01) ==
LOC: ED 11:35
DX: F10.129 Alcohol abuse with intoxication, unspecified (principal); I25.10 Atherosclerotic heart disease of native coronary artery without angina pectoris; I10 Essential (primary) hypertension; F17.210 Nicotine dependence, cigarettes, uncomplicated

== ENCOUNTER 2017-06-25 14:59 | Inpatient (IN) | payer OTHER ==
--- NOTE | 2017-06-25 15:18 | ED PDOC ---
Arrival/HPI - General Time Seen by Provider: 06/25/17 15:02 Historian: Patient - History of Present Illness Narrative History of Present Illness (Text): 06/25/17 15:15 Wendy Smyth is a 56 year old male, whose past medical history includes CAD, hypertension and alcohol abuse, presents to the Emergency department complaining of "cold hands" and shivers today. Patient states he was outside when he felt he "could not move" affected from the low weather temperature. Patient admits to consuming low amount of alcohol today. He feels like he's withdrawing. He feels anxious and suicidal. No suicidal plan. Patient also complains of a recent fall. He's not sure how because he was drunk. He has a bruise on his left eye. No visual complaints. Patient denies any pain, fever, nausea, vomiting, chest pain, or any other complaints. Denies any drug use. PMD: No PMD Time/Duration: Prior to Arrival Symptom Onset: Gradual Symptom Course: Unchanged Activities at Onset: Light Context: Street Past Medical History - Provider Review Nursing Documentation Reviewed: Yes - Infectious Disease Hx of Infectious Diseases: None - Tetanus Immunization Tetanus Immunization: Unknown - Cardiac Hx Cardiac Disorders: Yes (cad) Hx Hypertension: Yes - Pulmonary Hx Tuberculosis: No - Neurological HX Cerebrovascular Accident: No Hx Seizures: No - HEENT Hx HEENT Disorder: No - Renal Hx Renal Disorder: No - Endocrine/Metabolic Hx Endocrine Disorders: No - Hematological/Oncological Hx Cancer: No - Integumentary Hx Dermatological Disorder: No - Musculoskeletal/Rheumatological Hx Falls: Yes (past) - Gastrointestinal Hx Gastrointestinal Disorders: No - Genitourinary/Gynecological Hx Sexually Transmitted Diseases: No - Psychiatric Hx Psychophysiologic Disorder: Yes Hx Depression: Yes Hx Substance Use: No - Past Surgical History Past Surgical History: No Previous - Surgical History Hx Cardiac Catheterization: Yes Hx Coronary Stent: Yes (X1) - Anesthesia Hx Anesthesia: Yes Hx Anesthesia Reactions: No Hx Malignant Hyperthermia: No - Suicidal Assessment Feels Threatened In Home Enviroment: No Family/Social History - Physician Review Nursing Documentation Reviewed: Yes Family/Social History: Unknown Family HX Smoking Status: Light Smoker < 10 Cigarettes Daily Hx Alcohol Use: Yes (beer daily) Amount per day: 5 Hx Substance Use: No Hx Substance Use Treatment: No Allergies/Home Meds Allergies/Adverse Reactions: Allergies No Known Allergies Allergy (Verified 06/17/17 11:49) Home Medications: Home Meds Medication Instructions Recorded Confirmed No Known Home Med 06/17/17 06/25/17 Review of Systems - Physician Review All systems were reviewed & negative as marked: Yes - Review of Systems Constitutional: Normal. absent: Fevers Eyes: Normal ENT: Normal Respiratory: Normal. absent: SOB Cardiovascular: Normal. absent: Chest Pain Gastrointestinal: Normal. absent: Nausea, Vomiting Genitourinary Male: Normal Musculoskeletal: Normal Skin: Other (Cold hands ) Neurological: Normal Endocrine: Normal Hemo/Lymphatic: Normal Psychiatric: Anxiety, Suicidal Ideation Physical Exam Vital Signs Reviewed: Yes Vital Signs Temp Pulse Resp BP Pulse Ox 06/25/17 20:01 101 H 16 108/78 95 06/25/17 18:10 98 H 18 124/75 96 06/25/17 16:40 94 H 18 130/69 98 06/25/17 14:59 97.6 F 102 H 18 133/71 97 Temperature: Afebrile Blood Pressure: Normal Pulse: Tachycardic Respiratory Rate: Normal Appearance: Positive for: Well-Appearing, Non-Toxic, Comfortable Pain Distress: None Mental Status: Positive for: Alert and Oriented X 3 - Systems Exam Head: Present: Normocephalic, Other (left periorbital ecchmyosis healing; no edema; no tenderness; no laceration). No: Laceration Pupils: Present: PERRL Extroacular Muscles: Present: EOMI Conjunctiva: Present: Normal Mouth: Present: Moist Mucous Membranes Pharnyx: Present: Normal Nose (External): Present: Atraumatic Neck: Present: Normal Range of Motion. No: MIDLINE TENDERNESS, Paraspinal Tenderness, Bruit Respiratory/Chest: Present: Clear to Auscultation, Good Air Exchange. No: Respiratory Distress, Accessory Muscle Use Cardiovascular: Present: Regular Rate and Rhythm, Normal S1, S2. No: Murmurs Abdomen: Present: Normal Bowel Sounds. No: Tenderness, Distention, Peritoneal Signs Back: Present: Normal Inspection. No: Midline Tenderness, Paraspinal Tenderness Upper Extremity: Present: Normal Inspection, NORMAL PULSES, Capillary Refill < 2s. No: Cyanosis, Edema Lower Extremity: Present: Normal Inspection. No: Edema Neurological: Present: GCS=15, CN II-XII Intact, Speech Normal Skin: Present: Dry, Normal Color, Cold. No: Warm, Rashes Psychiatric: Present: Alert, Oriented x 3, Normal Insight, Normal Concentration Medical Decision Making ED Course and Treatment: 06/25/17 15:15 Impression: 56 year old male presents to the Emergency department for "cold hands" and shivers, alcohol use, suicidal ideation Differential Diagnosis included but are not limited to: Hypothermia, Alcohol Withdrawal, Alcohol Intoxication, Suicidal Ideation, Head Injury r/o Fracture Plan: -- CT Head -- CT Maxillofocal -- Labs -- Chest X-ray -- Activan -- IV Fluids -- Zofran -- Urinalysis -- Reassess and disposition Prior Visits: Notes and results from previous visits were reviewed. On 06/01/17 patient was seen in the Emergency department for alcohol intoxication. Patient was discharged home upon improvement. Progress Notes: 06/25/17 17:24 CT of Head reviewed by radiologist, shows no evidence of acute intracranial hemorrhage intracranial collection mass effect or midline shift. CT of Maxillofacial reviewed by radiologist, shows: No evidence of acute displaced fracture in the maxillofacial bones. Re- demonstrated is a deformity in the nasal bone likely from old fracture. Mild mucosal thickening in the ethmoid and right maxillary sinus without evidence of air-fluid level. 06/25/17 19:00 Chest X-ray reviewed by radiologist, shows no active disease. CT reviewed and no ICH or fractures. Report above. 06/25/17 21:04 PES evaluated patient and said they will reevaluate pending sobriety. Patient resting comfortable in no distress. No tremors. 06/25/17 21:57 Patient with noted hyponatremia. Still off balance when walking. Will admit for hyponatremia, alcohol abuse, suicidal ideation, head injury. Case discussed with Dr. Abhijit Yeung for placement in observation med/surg floor. - Lab Interpretations Lab Results: 06/25/17 15:32 06/25/17 15:32 Lab Results 06/25/17 16:34: pO2 115 H, VBG pH 7.39, VBG pCO2 37.0 L, VBG HCO3 22.4, VBG O2 Sat (Calc) 98.2 H, VBG Base Excess -2.2 L 06/25/17 16:28: Urine Opiates Screen Negative, Urine Methadone Screen Negative, Ur Barbiturates Screen Negative, Ur Phencyclidine Scrn Negative, Ur Amphetamines Screen Negative, U Benzodiazepines Scrn Negative, U Oth Cocaine Metabols Negative, U Cannabinoids Screen Negative 06/25/17 16:28: Urine Color Light yellow, Urine Appearance Clear, Urine pH 6.5, Ur Specific [place] <= 1.005, Urine Protein Negative, Urine Glucose (UA) Negative, Urine Ketones Negative, Urine Blood Trace-intact H, Urine Nitrate Negative, Urine Bilirubin Negative, Urine Urobilinogen 0.2, Ur Leukocyte Esterase Negative, Urine RBC 0 - 2, Urine WBC Negative, Ur Epithelial Cells None 06/25/17 15:32: Lipase 482 H 06/25/17 15:32: PT 1.1 L, INR 0.99, APTT 29.0 06/25/17 15:32: Alcohol, Quantitative 278 H 06/25/17 15:32: Salicylates < 1 L, Acetaminophen < 10.0 L 06/25/17 15:32: Sodium 123 L, Potassium 3.9, Chloride 87 L, Carbon Dioxide 19 L , Anion Gap 21 H, BUN 9, Creatinine 0.7 L, Est GFR ( Amer) > 60, Est GFR (Non-Af Amer) > 60, Random Glucose 102, Calcium 8.8, Total Bilirubin 0.6, AST 87 H, ALT 57 H, Alkaline Phosphatase 80, Total Protein 7.8, Albumin 4.4, Globulin 3.4, Albumin/Globulin Ratio 1.3 06/25/17 15:32: WBC 5.6 D, RBC 3.68, Hgb 12.2 L D, Hct 34.5 L, MCV 93.8, MCH 33.2, MCHC 35.4, RDW 13.7, Plt Count 150, MPV 9.4, Gran % 72.0 H, Lymph % (Auto ) 15.6 L, [place] % (Auto) 11.8 H, Eos % (Auto) 0.2 L, Baso % (Auto) 0.4, Gran # 4.02, Lymph # 0.9 L, [place] # 0.7 H, Eos # 0.0, Baso # 0.02 06/25/17 15:20: POC Glucose (mg/dL) 96 - RAD Interpretation Radiology Orders: 06/25/17 15:40 HEAD W/O CONTRAST [CT] Stat 06/25/17 15:41 MAXILLOFACIAL W/O CONTRAST [CT] Stat CHEST PORTABLE [RAD] Stat Logistics Engineer: Radiologist - EKG Interpretation EKG Interpretation (Text): 06/25/17 16:20 NSR at [address] elevations, 1st degree AV block, prolonged QT; no change from 06/01/17 Interpreted by ED Physician: Yes Type: 12 lead EKG - Medication Orders Current Medication Orders: Sodium Chloride (Sodium Chloride 0.9%) 1,000 mls @ 100 mls/hr IV .Q10H [place] Last Admin: 06/25/17 16:02 Dose: 100 mls/hr eMAR Start Stop Document 06/25/17 16:02 MS (Rec: 06/25/17 16:02 MS [id number]) Intravenous Solution Start Date 06/25/17 Start Time 16:02 Discontinued Medications Multivitamins/Vitamin C 10 ml/Thiamine HCl 100 mg/ Folic Acid 1 mg/ Dextrose 1, 011.2 mls @ 1,000 mls/hr IV .Q1H1M ONE Stop: 06/25/17 16:47 Last Admin: 06/25/17 16:16 Dose: 1,000 mls/hr eMAR Start Stop Document 06/25/17 16:16 MS (Rec: 06/25/17 16:16 MS [id number]) Intravenous Solution Start Date 06/25/17 Start Time 16:16 End Date 06/25/17 End time 17:16 Total Infusion Time 60 Lorazepam (Ativan) 2 mg IVP ONCE ONE PRN Reason: Protocol Stop: 06/25/17 15:55 Last Admin: 06/25/17 15:57 Dose: 2 mg IVP Administration Document 06/25/17 15:57 MS (Rec: 06/25/17 15:57 MS [id number]) Charges for Administration # of IVP Administrations 1 Ondansetron HCl (Zofran Inj) 4 mg IVP STAT STA Stop: 06/25/17 15:44 Last Admin: 06/25/17 15:52 Dose: 4 mg IVP Administration Document 06/25/17 15:52 MS (Rec: 06/25/17 15:52 MS [id number]) Charges for Administration # of IVP Administrations 1 - Scribe Statement The provider has reviewed the documentation as recorded by the Scribe Jeb Monteiro. All medical record entries made by the Emileibnina were at my direction and personally dictated by me. I have reviewed the chart and agree that the record accurately reflects my personal performance of the history, physical exam, medical decision making, and the department course for this patient. I have also personally directed, reviewed, and agree with the discharge instructions and disposition. Disposition/Present on Arrival - Present on Arrival Any Indicators Present on Arrival: No History of DVT/PE: No History of Uncontrolled Diabetes: No Urinary Catheter: No History Surgical Site Infection Following: None - Disposition Have Diagnosis and Disposition been Completed?: Yes Diagnosis: Alcohol abuse, Hyponatremia, Suicidal ideation, Head injury Disposition Time: 21:59 Patient Plan: Observation Patient Problems: Current Active Problems Problem Status Onset Alcohol abuse Acute Condition: FAIR Referrals: Dominic Tenorio, [Primary Care Provider] - Follow up with primary
[2017-06-25 15:33] VITALS: BMI 25.8
[2017-06-25] MEDS ORDERED: Multivitamin (MVI) 10 ML, Thiamine 100 MG, Folic Acid 1 MG in Dextrose 5% In Water 1,00... IV ONE (15:47)
[2017-06-25 15:53] LABS: BASO # 0.02 K/mm3 (0.0-2.0); BASO % 0.4 % (0.0-3.0); EOS % 0.2 % (1.5-5.0); GRAN # 4.02 (1.4-6.5); HEMOGLOBIN 12.2 g/dL (14.0-18.0); LYMPH # 0.9 (1.2-3.4); LYMPH % 15.6 % (22.0-35.0); MEAN CELL VOLUME 93.8 fl (80.0-105.0); MEAN CORPUSCULAR HEMOGLOBIN 33.2 pg (25.0-35.0); MEAN CORPUSCULAR HGB CONC 35.4 g/dl (31.0-37.0); MEAN PLATELET VOLUME 9.4 fl (7.0-11.0); MONO # 0.7 (0.1-0.6); MONO % 11.8 % (1.0-6.0); RBC 3.68 10^6/uL (3.5-6.1); RED CELL DISTRIBUTION WIDTH 13.7 % (11.5-14.5); WHITE BLOOD COUNT 5.6 10^3/ul (4.5-11.0)
[2017-06-25] MEDS: Sodium Chloride 0.9% 1,000 ML IV SCH (16:02)
[2017-06-25 16:09] LABS: INR 0.99 (0.93-1.08); PROTHROMBIN TIME 1.1 SECONDS (9.4-12.5)
[2017-06-25 16:19] LABS: ALB/GLOB RATIO 1.3 (1.1-1.8); ALBUMIN 4.4 g/dL (3.0-4.8); ALT/SGPT 57 U/L (7-56); AST/SGOT 87 U/L (17-59); BLOOD UREA NITROGEN 9 mg/dL (7-21); CALCIUM 8.8 mg/dL (8.4-10.5); GFR AFRICAN-AMERICAN > 60; GFR NON-AFRICAN AMERICAN > 60
[2017-06-25 16:26] LABS: ACETAMINOPHEN < 10.0 ug/ml (10.0-20.0); SALICYLATE < 1 mg/dL (2.0-20.0)
[2017-06-25 17:01] LABS: PH,URINE 6.5 (4.7-8.0); URINE BILIRUBIN NEGATIVE (NEGATIVE); URINE BLOOD TRACE-INTACT (NEGATIVE); URINE GLUCOSE (UA) NEGATIVE (NEGATIVE); URINE LEUKOCYTE ESTERASE NEGATIVE Leu/uL (NEGATIVE); URINE NITRATE NEGATIVE (NEGATIVE); URINE PROTEIN NEGATIVE mg/dL (<30 mg/dL); URINE UROBILINOGEN 0.2 E.U./dL (<1 E.U./dL)
[2017-06-25 17:06] LABS: URINE APPEARANCE CLEAR (CLEAR); URINE COLOR LIGHT YELLOW (YELLOW)
[2017-06-25 17:09] LABS: BARBITURATES, UR NEGATIVE (NEGATIVE); BENZODIAZEPINES, UR NEGATIVE (NEGATIVE); OPIATES, UR NEGATIVE (NEGATIVE); PHENCYCLIDINE, UR NEGATIVE (NEGATIVE)
[2017-06-25 17:11] LABS: URINE RBC 0 - 2 /hpf (0-2); URINE WBC NEGATIVE /hpf (0-6)
--- NOTE | 2017-06-25 17:13 | CT ---
PROCEDURE: CT HEAD WITHOUT CONTRAST. HISTORY: fall r/o ich COMPARISON: Comparison is made with previous study dated 12/03/2016 TECHNIQUE: Axial computed tomography images were obtained through the head/brain without intravenous contrast. Radiation dose: Total exam DLP = 951.69 mGy-cm. This CT exam was performed using one or more of the following dose reduction techniques: Automated exposure control, adjustment of the mA and/or kV according to patient size, and/or use of iterative reconstruction technique. FINDINGS: HEMORRHAGE: No intracranial hemorrhage. BRAIN: No mass effect or edema. Mild atrophy is again noted. VENTRICLES: Unremarkable. No hydrocephalus. CALVARIUM: Unremarkable. PARANASAL SINUSES: Unremarkable as visualized. No significant inflammatory changes. MASTOID AIR CELLS: Unremarkable as visualized. No inflammatory changes. OTHER FINDINGS: None. IMPRESSION: No evidence of acute intracranial hemorrhage intracranial collection mass effect or midline shift.
[2017-06-25 17:18] LABS: VENOUS BLOOD GAS BASE EXCESS -2.2 mmol/L (0.0-2.0); VENOUS BLOOD GAS PO2 115 mm/Hg (30-55); VENOUS BLOOD PH 7.39 (7.32-7.43)
--- NOTE | 2017-06-25 17:20 | CT ---
PROCEDURE: CT MAXILLOFACIAL BONES WITHOUT CONTRAST HISTORY: fall r/o fx COMPARISON: Comparison is made with the previous study dated 12/03/2016 TECHNIQUE: Contiguous axial CT images of the maxillofacial bones were obtained. Coronal and sagittal reformats were generated. Radiation dose: Total exam DLP = 778.7 mGy-cm. This CT exam was performed using one or more of the following dose reduction techniques: Automated exposure control, adjustment of the mA and/or kV according to patient size, and/or use of iterative reconstruction technique. FINDINGS: NASAL BONES: Mild deformity is again noted in the nasal bones without evidence of acute displaced fracture. ORBITS: Unremarkable. PARANASAL SINUSES/ MASTOIDS: Mild mucosal thickening noted in the ethmoid and right sphenoid sinuses. MAXILLA: Unremarkable. MANDIBLE/ TEMPOROMANDIBULAR JOINTS: Unremarkable. SKULL BASE: Unremarkable. TEMPORAL BONES: Middle ears and mastoid grossly unremarkable. OTHER FINDINGS: Multiple low periodontal lucency seen in the maxillary and mandibular teeth. IMPRESSION: No evidence of acute displaced fracture in the maxillofacial bones. Re- demonstrated is a deformity in the nasal bone likely from old fracture. Mild mucosal thickening in the ethmoid and right maxillary sinus without evidence of air-fluid level.
--- NOTE | 2017-06-25 18:32 | RAD ---
HISTORY: psych COMPARISON: Comparison is made to 06/01/2017 FINDINGS: LUNGS: No evidence of new infiltrate or consolidation in the lungs. PLEURA: No significant pleural effusion identified, no pneumothorax apparent. CARDIOVASCULAR: Cardiomegaly is again noted. OSSEOUS STRUCTURES: No significant abnormalities. VISUALIZED UPPER ABDOMEN: Normal. OTHER FINDINGS: None. IMPRESSION: No active disease.
--- NOTE | 2017-06-25 22:38 | CP.PCM.HP ---
<Zora Rasmussen - Last Filed: 06/25/17 23:59> History of Present Illness - History of Present Illness History of Present Illness: This is a 55 yo [place] M with PMH of CAD s/p stents, A-fib (not on AC due to med noncompliance, continued alcohol abuse), Angina, HTN, HLD, chronic alcohol abuse, depression, asthma, and COPD who presents to the ED after a fall and with concerns for alcohol withdrawal. Important to note that at the time of the encounter the patient was intoxicated with alcohol and is reportedly a poor historian at baseline. In regards to his fall, the patient cannot recall when or how he fell, but points to a laceration on his left eyebrow. In relation to his alcohol problem, he states he drinks beer, anywhere from 8-20 cans a day. He has tried to cut back here recently, but cannot go past four beers a day due to withdrawal symptoms. He denies any nausea, vomiting, diarrhea. Of note, blood alcohol level in the ED was 278. PMD: None or Dr. Purcell PMH: as above Allergies: NKA PSH: cardiac cath with stenting FHx: denies SH: Lives alone, claims 2-3 small beers daily, 3/4's ppd of cigarettes for > 20 yrs, denies illicits/IVDA Home meds: Lopressor 50mg BID, Diovan-HCTZ 320/25mg daily, Norvasc 10mg daily, Simvastatin 40mg nightly, Sertraline 100mg daily Present on Admission - Present on Admission Any Indicators Present on Admission: No Review of Systems - Review of Systems Systems not reviewed;Unavailable: Intoxicated - Constitutional Constitutional: As Per HPI Past Patient History - Infectious Disease Hx of Infectious Diseases: None - Tetanus Immunizations Tetanus Immunization: Unknown - Past Social History Smoking Status: Light Smoker < 10 Cigarettes Daily - CARDIAC Hx Cardiac Disorders: Yes (cad) Hx Hypertension: Yes - PULMONARY Hx Tuberculosis: No - NEUROLOGICAL HX Cerebrovascular Accident: No Hx Seizures: No - HEENT Hx HEENT Problems: No - RENAL Hx Chronic Kidney Disease: No - ENDOCRINE/METABOLIC Hx Endocrine Disorders: No - HEMATOLOGICAL/ONCOLOGICAL Hx Cancer: No - INTEGUMENTARY Hx Dermatological Problems: No - MUSCULOSKELETAL/RHEUMATOLOGICAL Hx Falls: Yes (past) - GASTROINTESTINAL Hx Gastrointestinal Disorders: No - GENITOURINARY/GYNECOLOGICAL Hx Sexually Transmitted Disorders: No - PSYCHIATRIC Hx Psychophysiologic Disorder: Yes Hx Depression: Yes Hx Substance Use: No - SURGICAL HISTORY Hx Cardiac Catheterization: Yes Hx Coronary Stent: Yes (X1) - ANESTHESIA Hx Anesthesia: Yes Hx Anesthesia Reactions: No Hx Malignant Hyperthermia: No Meds Allergies/Adverse Reactions: Allergies Allergy/AdvReac Type Severity Reaction Status Date / Time No Known Allergies Allergy Verified 06/17/17 11:49 Physical Exam - Constitutional Appears: Non-toxic, No Acute Distress, Unkempt - Head Exam Additional comments: laceration over left eye brow - Eye Exam Eye Exam: EOMI, PERRL - ENT Exam ENT Exam: Mucous Membranes Moist, Normal Oropharynx - Neck Exam Neck exam: Positive for: Normal Inspection - Respiratory Exam Respiratory Exam: Clear to Auscultation Bilateral, NORMAL BREATHING PATTERN - Cardiovascular Exam Cardiovascular Exam: RRR, +S1, +S2 - GI/Abdominal Exam GI & Abdominal Exam: Normal Bowel Sounds, Soft - Extremities Exam Extremities exam: Positive for: normal capillary refill, normal inspection, pedal pulses present. Negative for: calf tenderness - Back Exam Back exam: NORMAL INSPECTION. absent: CVA tenderness (L), CVA tenderness (R) - Neurological Exam Neurological exam: Alert, CN II-XII Intact, Oriented x3 - Psychiatric Exam Psychiatric exam: Normal Affect, Normal Mood - Skin Skin Exam: Dry, Intact, Normal Color, Warm Results - Vital Signs Recent Vital Signs: Last Vital Signs Temp 97.6 F 06/25/17 14:59 Pulse 101 H 06/25/17 20:01 Resp 16 06/25/17 20:01 BP 108/78 06/25/17 20:01 Pulse Ox 95 06/25/17 20:01 - Labs Result Diagrams: 06/25/17 15:32 06/25/17 15:32 Assessment & Plan - Assessment and Plan (Free Text) Assessment: 56 year old inebriated male with a past medical history of CAD, alcoholism, dyslipidemia, and depression who presents after an unwitnessed fall and for concerns for alcohol withdrawal. Initial labs and imaging revealed a BAL of 278 and a serum Na of 123. Plan: 1) Fall - CT head shows no evidence of acute intracranial hemorrhage. - CT of Maxillofacial No evidence of acute displaced fracture in the maxillofacial bones. Re-demonstrated is a deformity in the nasal bone likely from old fracture. Mild mucosal thickening in the ethmoid and right maxillary sinus without evidence of air-fluid level. - Chest X-ray shows no active disease. - EKG showed sinus rhythm with 1st degree AV block; Prolonged QT; left atrial enlargement 2) Alcohol withdrawal - Ativan 1 mg IVP q4h PRN and q2h PRN for alcohol withdrawal symptoms - Fall precautions, seizure precautions, and CIWA protocol - Multivitamin, Folic Acid, and Thiamine PO starting in morning 3) Euvolemic hyponatremia - Serum Na was 123 on admission - Urine Na and Urine osmolality ordered 4) Hypertension: currently stable - Holding HCTZ 25, Valsartan 325, and Amlodipine 10 mg -Resuming Metoprolol Tartarate 50 mg BID 5) Depression -Sertaline 100 mg PO daily - Psychiatry consulted 6) History of COPD - Duonebs PRN for dyspnea 7) CAD - Aspirin 81 mg PO daily - Lipitor 20 mg Po nightly 5) DVT/GI Prophylaxis - SCD - Famotidine 40 mg PO HS - Date & Time Date: 06/26/17 Time: 00:01 Decision To Admit - . Bed Request Type: Med/Surg <Vicenta Yeung - Last Filed: 06/27/17 06:30> Results - Vital Signs Recent Vital Signs: Last Vital Signs Temp 97.8 F 06/26/17 16:00 Pulse 84 06/26/17 16:00 Resp 18 06/26/17 16:00 BP 160/98 H 06/26/17 17:29 Pulse Ox 96 06/26/17 16:00 - Labs Result Diagrams: 06/26/17 07:35 06/26/17 13:29 Labs: Laboratory Results - last 24 hr 06/26/17 06/26/17 06/26/17 01:45 01:45 07:35 WBC 4.7 RBC 3.93 Hgb 12.7 L Hct 37.3 L MCV 94.9 MCH 32.3 MCHC 34.0 RDW 14.4 Plt Count 139 MPV 9.8 Gran % 70.0 H Lymph % (Auto) 14.6 L [place]cd[place] % (Auto) 14.6 H Eos % (Auto) 0.4 L Baso % (Auto) 0.4 Gran # 3.27 Lymph # 0.7 L [place]cd[place] # 0.7 H Eos # 0.0 Baso # 0.02 Sodium Potassium Chloride Carbon Dioxide Anion Gap BUN Creatinine Est GFR ( Amer) Est GFR (Non-Af Amer) Random Glucose Calcium Total Bilirubin AST ALT Alkaline Phosphatase Total Protein Albumin Globulin Albumin/Globulin Ratio Urine Osmolality Cancelled 140 L 06/26/17 06/26/17 07:35 13:29 WBC RBC Hgb Hct MCV MCH MCHC RDW Plt Count MPV Gran % Lymph % (Auto) [place]cd[place] % (Auto) Eos % (Auto) Baso % (Auto) Gran # Lymph # [place] # Eos # Baso # Sodium 137 135 Potassium 4.1 4.1 Chloride 103 100 Carbon Dioxide 25 26 Anion Gap 13 12 BUN 10 13 Creatinine 0.7 L 0.9 Est GFR ( Amer) > 60 > 60 Est GFR (Non-Af Amer) > 60 > 60 Random Glucose 97 126 H Calcium 9.1 9.1 Total Bilirubin 0.6 AST 77 H ALT 66 H Alkaline Phosphatase 82 Total Protein 7.9 Albumin 4.3 Globulin 3.7 Albumin/Globulin Ratio 1.2 Urine Osmolality
[2017-06-26] MEDS ORDERED: Albuterol-Ipratrop 3 mg / 0.5 (3 ml) UD IH PRN (00:16)
[2017-06-26] MEDS: Sodium Chloride 0.9% 1,000 ML IV SCH (02:43)
[2017-06-26] MEDS ORDERED: Folic Acid 1 MG, Thiamine 100 MG, Multivitamin (MVI) 10 ML in Dextrose 5% In Water 1,00... IV SCH (05:00)
[2017-06-26] MEDS ORDERED: Multivitamin Therapeutic Tab PO SCH (08:00)
[2017-06-26 08:04] LABS: BASO # 0.02 K/mm3 (0.0-2.0); BASO % 0.4 % (0.0-3.0); EOS % 0.4 % (1.5-5.0); GRAN # 3.27 (1.4-6.5); HEMOGLOBIN 12.7 g/dL (14.0-18.0); LYMPH # 0.7 (1.2-3.4); LYMPH % 14.6 % (22.0-35.0); MEAN CELL VOLUME 94.9 fl (80.0-105.0); MEAN CORPUSCULAR HEMOGLOBIN 32.3 pg (25.0-35.0); MEAN PLATELET VOLUME 9.8 fl (7.0-11.0); MONO # 0.7 (0.1-0.6); MONO % 14.6 % (1.0-6.0); RBC 3.93 10^6/uL (3.5-6.1); RED CELL DISTRIBUTION WIDTH 14.4 % (11.5-14.5); WHITE BLOOD COUNT 4.7 10^3/ul (4.5-11.0)
[2017-06-26 08:18] LABS: ALB/GLOB RATIO 1.2 (1.1-1.8); ALBUMIN 4.3 g/dL (3.0-4.8); ALT/SGPT 66 U/L (7-56); AST/SGOT 77 U/L (17-59); BLOOD UREA NITROGEN 10 mg/dL (7-21); CALCIUM 9.1 mg/dL (8.4-10.5); GFR AFRICAN-AMERICAN > 60; GFR NON-AFRICAN AMERICAN > 60
--- NOTE | 2017-06-26 12:43 | CON ---
HISTORY OF PRESENT ILLNESS: The patient is a 56-year-old , M[place] male with a long history of severe alcohol use disorder and numerous medical issues, no prior psychiatric hospitalizations or suicide attempts, no current outpatient psychiatric treatment, though reportedly compliant with Zoloft prescribed by his medical doctor, who presented to the ER reporting depression, suicidal thoughts while he was inebriated. He was subsequently admitted to the medical floor due to the hyponatremia, and Psychiatry was consulted. Please note that his provider has been contacted with the ER clinician who indicated that the patient had denied suicidal thoughts during the clinician's interview with him while he was inebriated and also when he was sober. The patient also has a history of similar presentation in 08/2016. Dr. Sol followed up with him at that time, and the patient had also denied depression or suicidal thought, though was consulted for these possible symptoms. Presently, the patient is coherent. He is oriented to month and the year, location, and circumstances. The patient reports that he has been taking Zoloft which has helped with symptoms of depression. He is not hopeless. He is not suicidal. He denies having any hallucinations at this time, and his responses are coherent and relevant to questioning. Focus is fair, and he does not appear to be responding to internal stimuli. The patient has future-oriented plans to stop drinking completely, however, reports that it has been very difficult for him. He has been drinking for the last 2 weeks about 6 beers daily. He denies having any histories of withdrawal seizures, and he is not paranoid and does not appear to be in any major discomfort and denies having any major discomfort. He has been in good control on the unit and lucid throughout the nursing shift when consulted with nursing staff this morning. VITAL SIGNS: Reviewed by this provider. Pulse rate was elevated at 106 at 01:13 this morning and 90 at 08:08 this morning. The patient is afebrile, and blood pressure is 155/94 at 8:08 this morning. LABORATORY DATA: Labs were reviewed by this provider, and sodium level seems to be improving from 123 to 137 today. MEDICATIONS: Regarding medications, the patient is taking Zoloft 100 mg p.o. daily. The patient does not appear to be on any standing benzodiazepines for his alcohol withdrawal. PSYCHIATRIC HISTORY: The patient denies any psychiatric inpatient hospitalizations or suicide attempts. He is not an outpatient psychiatric human, however, does receive Zoloft prescribed by his primary care doctor. The patient was also consulted by Dr. Sol in 08/2016, who recommended trazodone and signed off. Dr. Sol also visited with the patient in 11/2016 in the ER as well. The patient did not meet criteria for inpatient admission. SOCIAL HISTORY: The patient was born in [place]. He is , but . He lives by himself. He has 2 adult sons. 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 He reports lifelong history of alcohol dependency. The patient denies any history of withdrawal seizures or withdrawal hallucinations. IMPRESSION: Severe alcohol use disorder, alcohol withdrawal, substance-induced mood disorder, depression, not otherwise specified, rule out major depressive disorder, moderate. RECOMMENDATIONS: 1. I recommended that medical team will continue the Ativan that I will start the patient, so that he does not go into withdrawal seizures, and that medical team tapers his medication as tolerated for his medical issues of alcohol withdrawal. I will start dose at 2 mg q.8 hours to be held if his systolic blood pressure is less than 100. 2. We will continue Zoloft at 100 mg daily for depression as the patient reports that it has been beneficial for him. 3. The patient does not appear to be interested in rehab or detox at this time. He does not appear to be interested in naltrexone treatment, but he does want to stop drinking. I recommended that social workers speak with the patient about these treatment options. The patient also defers on psychiatric inpatient stabilization. He is not hopeless. He is not suicidal. He is coherent and does not present to be as a danger to himself. Psychiatry will sign off on him at this time. Please re-consult as necessary if symptoms or presentation changes acutely. Nikita Tello MD
--- NOTE | 2017-06-26 13:09 | CP.PCM.PN ---
"<Yuliet Trevino - Last Filed: 06/26/17 12:55> Subjective - Date & Time of Evaluation Date of Evaluation: 06/26/17 Time of Evaluation: 12:55 - Subjective Subjective: Patient has been seen and examined. No overnight events reported. Patient is AAOx3. He denies any headache, dizziness, LH, CP, SOB, Abd pain, N/V/D, constipation, or any urinary symptoms. Objective - Vital Signs/Intake and Output Vital Signs (last 24 hours): Temp Pulse Resp BP Pulse Ox 98 F 90 20 155/94 H 95 06/26/17 08:08 06/26/17 08:08 06/26/17 08:08 06/26/17 10:02 06/26/17 08:08 - Medications Medications: Current Medications Albuterol/Ipratropium (Duoneb 3 Mg/0.5 Mg (3 Ml) Ud) 3 ml IH [id number] PRN PRN Reason: Shortness of Breath Aspirin (Ecotrin) 81 mg PO DAILY [facility] Last Admin: 06/26/17 10:03 Dose: 81 mg Atorvastatin Calcium (Lipitor) 20 mg PO DIN [facility] Famotidine (Pepcid) 40 mg PO HS [facility] Last Admin: 06/26/17 00:58 Dose: 40 mg Dextrose (Dextrose 5% In Water 1000 Ml) 1,000 mls @ 100 mls/hr IV .Q10H [facility] Last Admin: 06/26/17 10:02 Dose: 100 mls/hr Lorazepam (Ativan) 2 mg PO Q8 [facility] PRN Reason: Protocol Last Admin: 06/26/17 10:05 Dose: 2 mg Metoprolol Tartrate (Lopressor) 50 mg PO BID [facility] Last Admin: 06/26/17 10:02 Dose: 50 mg Sertraline HCl (Zoloft) 100 mg PO DAILY [facility] Last Admin: 06/26/17 10:02 Dose: 100 mg - Labs Labs: 06/26/17 07:35 06/26/17 07:35 PT 1.1 SECONDS (9.4-12.5) L 06/25/17 15:32 INR 0.99 (0.93-1.08) 06/25/17 15:32 APTT 29.0 Seconds (25.1-36.5) 06/25/17 15:32 - Additional Findings Additional findings: - Constitutional Appears: Non-toxic, No Acute Distress, Unkempt - Head Exam Additional comments: laceration over left eye brow - Eye Exam Eye Exam: EOMI, PERRL - ENT Exam ENT Exam: Mucous Membranes Moist, Normal Oropharynx - Neck Exam Neck exam: Positive for: Normal Inspection - Respiratory Exam Respiratory Exam: Clear to Auscultation Bilateral, NORMAL BREATHING PATTERN - Cardiovascular Exam Cardiovascular Exam: RRR, +S1, +S2 - GI/Abdominal Exam GI & Abdominal Exam: Normal Bowel Sounds, Soft, Non-Tender - Extremities Exam Extremities exam: Positive for: normal capillary refill, normal inspection, pedal pulses present. Negative for: calf tenderness - Back Exam Back exam: NORMAL INSPECTION. absent: CVA tenderness (L), CVA tenderness (R) - Neurological Exam Neurological exam: Alert, CN II-XII Intact, Oriented x3, Mild Tremor - Psychiatric Exam Psychiatric exam: Normal Affect, Normal Mood - Skin Skin Exam: Dry, Intact, Normal Color, Warm Assessment and Plan - Assessment and Plan (Free Text) Assessment: 56 year old inebriated male with a past medical history of CAD, alcoholism, dyslipidemia, and depression who presents after an unwitnessed fall and for concerns for alcohol withdrawal. Initial labs and imaging revealed a BAL of 278 and a serum Na of 123. Plan: Fall - CT head shows no evidence of acute intracranial hemorrhage. - CT of Maxillofacial No evidence of acute displaced fracture in the maxillofacial bones. Re-demonstrated is a deformity in the nasal bone likely from old fracture. Mild mucosal thickening in the ethmoid and right maxillary sinus without evidence of air-fluid level. - Chest X-ray shows no active disease. - EKG showed sinus rhythm with 1st degree AV block; Prolonged QT; left atrial enlargement Alcohol withdrawal - Ativan 2 Q8H [facility] | Ativan 1 Q6 PRN - Fall precautions, seizure precautions, and CIWA protocol - Multivitamin, Folic Acid, and Thiamine PO starting in morning Euvolemic hyponatremia (Resolved) - Serum Na was 123 on admission 137 Today - BMP ordered for 13:00 today - F/U - Urine Na - Normal at 21 - Urine Osmolality 140 Hypertension: - Holding HCTZ 25, Valsartan 325, and Amlodipine 10 mg -Resuming Metoprolol Tartarate 50 mg BID - Repeat BP ordered at 13:08 - F/U - If high, resume his held BP meds Depression -Sertaline 100 mg PO daily - Psychiatry consulted - Recs Appreciated History of COPD - Duonebs PRN for dyspnea CAD - Aspirin 81 mg PO daily - Lipitor 20 mg Po nightly DVT/GI Prophylaxis - SCD - Famotidine 40 mg PO HS Patient seen and discussed with Attending Yuliet Trevino - PGY1 <AllisonRenita guevaraleandro - Last Filed: 06/30/17 12:20> Objective - Vital Signs/Intake and Output Vital Signs (last 24 hours): Temp Pulse Resp BP Pulse Ox 98.6 F 76 20 156/98 H 95 06/28/17 16:06 06/28/17 16:06 06/28/17 16:06 06/28/17 17:41 06/28/17 16:06 - Labs Labs: 06/28/17 07:30 06/28/17 07:30 PT 1.1 SECONDS (9.4-12.5) L 06/25/17 15:32 INR 0.99 (0.93-1.08) 06/25/17 15:32 APTT 29.0 Seconds (25.1-36.5) 06/25/17 15:32 Attending/Attestation - Attestation I have personally seen and examined this patient.: Yes I have fully participated in the care of the patient.: Yes I have reviewed all pertinent clinical information, including history, physical exam and plan: Yes Notes (Text): 06/30/17 12:14 Patient was seen and examined with family practice medical doctor. 56 yrs old male with Alcohol withdrawal, continue CIWA Protocal. Hyponatremia is due to HCTZ and alcohol abuse, corrected very quickly, will change fluid to D5W.Patient is asymtometic.We will monitor closely. Management plan was discussed in detail. Education was provided."
[2017-06-26 13:51] LABS: BLOOD UREA NITROGEN 13 mg/dL (7-21); CALCIUM 9.1 mg/dL (8.4-10.5); GFR AFRICAN-AMERICAN > 60; GFR NON-AFRICAN AMERICAN > 60
--- NOTE | 2017-06-26 14:54 | CARD ---
APPROVED REPORT EKG Measurement Heart [id number] <Conclusion> Sinus rhythm with 1st degree AV block Possible Left atrial enlargement Prolonged QT Abnormal ECG
[2017-06-27 09:25] LABS: BASO # 0.04 K/mm3 (0.0-2.0); BASO % 0.9 % (0.0-3.0); EOS # 0.1 (0.0-0.7); EOS % 1.5 % (1.5-5.0); GRAN # 2.43 (1.4-6.5); GRAN % 52.4 % (50.0-68.0); HEMOGLOBIN 13.1 g/dL (14.0-18.0); LYMPH # 1.3 (1.2-3.4); LYMPH % 27.9 % (22.0-35.0); MEAN CORPUSCULAR HEMOGLOBIN 32.4 pg (25.0-35.0); MEAN CORPUSCULAR HGB CONC 33.4 g/dl (31.0-37.0); MEAN PLATELET VOLUME 10.1 fl (7.0-11.0); MONO # 0.8 (0.1-0.6); MONO % 17.3 % (1.0-6.0); RBC 4.04 10^6/uL (3.5-6.1); RED CELL DISTRIBUTION WIDTH 14.3 % (11.5-14.5); WHITE BLOOD COUNT 4.6 10^3/ul (4.5-11.0)
[2017-06-27 09:38] LABS: ALB/GLOB RATIO 1.2 (1.1-1.8); ALBUMIN 4.6 g/dL (3.0-4.8); ALT/SGPT 72 U/L (7-56); AST/SGOT 81 U/L (17-59); BLOOD UREA NITROGEN 11 mg/dL (7-21); CALCIUM 9.5 mg/dL (8.4-10.5); GFR AFRICAN-AMERICAN > 60; GFR NON-AFRICAN AMERICAN > 60
--- NOTE | 2017-06-27 13:37 | CP.PCM.PN ---
"<Yuliet Trevino - Last Filed: 06/27/17 13:29> Subjective - Date & Time of Evaluation Date of Evaluation: 06/27/17 Time of Evaluation: 13:29 - Subjective Subjective: Patient seen and examined. NO overnight events reported. Patient still complains of slight tremor. Denies any chest pain, palpitations, or SOB, abdominal pain, or changes in bowel habits. Objective - Vital Signs/Intake and Output Vital Signs (last 24 hours): Temp Pulse Resp BP Pulse Ox 98.1 F 69 18 168/100 H 97 06/27/17 07:54 06/27/17 07:54 06/27/17 07:54 06/27/17 09:03 06/27/17 07:54 Intake and Output: 06/27/17 06/27/17 06:59 18:59 Intake Total 2039 Balance 2039 - Medications Medications: Current Medications Albuterol/Ipratropium (Duoneb 3 Mg/0.5 Mg (3 Ml) Ud) 3 ml IH [id number] PRN PRN Reason: Shortness of Breath Amlodipine Besylate (Norvasc) 10 mg PO DAILY [facility] Last Admin: 06/27/17 09:02 Dose: 10 mg Aspirin (Ecotrin) 81 mg PO DAILY [facility] Last Admin: 06/27/17 09:03 Dose: 81 mg Atorvastatin Calcium (Lipitor) 20 mg PO DIN [facility] Last Admin: 06/26/17 17:29 Dose: 20 mg Famotidine (Pepcid) 40 mg PO HS [facility] Last Admin: 06/26/17 21:21 Dose: 40 mg Dextrose (Dextrose 5% In Water 1000 Ml) 1,000 mls @ 100 mls/hr IV .Q10H [facility] Last Admin: 06/26/17 10:02 Dose: 100 mls/hr Lorazepam (Ativan) 1 mg IVP Q6H PRN; Protocol PRN Reason: Anxiety Last Admin: 06/27/17 01:01 Dose: 1 mg Lorazepam (Ativan) 1 mg PO Q6H [facility] PRN Reason: Protocol Last Admin: 06/27/17 08:30 Dose: Not Given Metoprolol Tartrate (Lopressor) 50 mg PO BID [facility] Last Admin: 06/27/17 09:03 Dose: 50 mg Sertraline HCl (Zoloft) 100 mg PO DAILY [facility] Last Admin: 06/27/17 09:03 Dose: 100 mg - Labs Labs: 06/27/17 09:00 06/27/17 09:00 PT 1.1 SECONDS (9.4-12.5) L 06/25/17 15:32 INR 0.99 (0.93-1.08) 06/25/17 15:32 APTT 29.0 Seconds (25.1-36.5) 06/25/17 15:32 - Additional Findings Additional findings: - Constitutional Appears: Non-toxic, No Acute Distress, Unkempt - Head Exam Additional comments: laceration over left eye brow - Eye Exam Eye Exam: EOMI, PERRL - ENT Exam ENT Exam: Mucous Membranes Moist, Normal Oropharynx - Neck Exam Neck exam: Positive for: Normal Inspection - Respiratory Exam Respiratory Exam: Clear to Auscultation Bilateral, NORMAL BREATHING PATTERN - Cardiovascular Exam Cardiovascular Exam: RRR, +S1, +S2 - GI/Abdominal Exam GI & Abdominal Exam: Normal Bowel Sounds, Soft, Non-Tender - Extremities Exam Extremities exam: Positive for: normal capillary refill, normal inspection, pedal pulses present. Negative for: calf tenderness - Back Exam Back exam: NORMAL INSPECTION. absent: CVA tenderness (L), CVA tenderness (R) - Neurological Exam Neurological exam: Alert, CN II-XII Intact, Oriented x3, Mild Tremor (Improved) - Psychiatric Exam Psychiatric exam: Normal Affect, Normal Mood - Skin Skin Exam: Dry, Intact, Normal Color, Warm Assessment and Plan - Assessment and Plan (Free Text) Assessment: 56 year old inebriated male with a past medical history of CAD, alcoholism, dyslipidemia, and depression who presents after an unwitnessed fall and for concerns for alcohol withdrawal. Initial labs and imaging revealed a BAL of 278 and a serum Na of 123. Plan: Fall - CT head shows no evidence of acute intracranial hemorrhage. - CT of Maxillofacial No evidence of acute displaced fracture in the maxillofacial bones. Re-demonstrated is a deformity in the nasal bone likely from old fracture. Mild mucosal thickening in the ethmoid and right maxillary sinus without evidence of air-fluid level. - Chest X-ray shows no active disease. - EKG showed sinus rhythm with 1st degree AV block; Prolonged QT; left atrial enlargement Alcohol withdrawal - Ativan 1 Q6H [facility] | Ativan 1 Q6 PRN - Fall precautions, seizure precautions, and CIWA protocol - Multivitamin, Folic Acid, and Thiamine PO starting in morning Euvolemic hyponatremia (Resolved) - Urine Na - Normal at 21 - Urine Osmolality 140 Hypertension: - Holding HCTZ 25, Valsartan 325 - Cont. Metoprolol Tartarate 50 mg BID - Resume Norvasc 10mg Daily Depression -Sertaline 100 mg PO daily - Psychiatry consulted - Recs Appreciated Refused rehab, detox, inpatient psych stabilization, naltrexone treatment History of COPD - Duonebs PRN for dyspnea CAD - Aspirin 81 mg PO daily - Lipitor 20 mg Po nightly DVT/GI Prophylaxis - SCD - Famotidine 40 mg PO HS Dispo: Patient is still showing symptoms of withdrawal but it is improved. Will likely go home tomorrow. Patient seen and discussed with Attending Yuliet Trevino - PGY1 <Sweta Flores - Last Filed: 06/27/17 14:31> Objective - Vital Signs/Intake and Output Vital Signs (last 24 hours): Temp Pulse Resp BP Pulse Ox 98.1 F 69 18 168/100 H 97 06/27/17 07:54 06/27/17 07:54 06/27/17 07:54 06/27/17 09:03 06/27/17 07:54 Intake and Output: 06/27/17 06/27/17 06:59 18:59 Intake Total 2039 Balance 2039 - Medications Medications: Current Medications Albuterol/Ipratropium (Duoneb 3 Mg/0.5 Mg (3 Ml) Ud) 3 ml IH [id number] PRN PRN Reason: Shortness of Breath Amlodipine Besylate (Norvasc) 10 mg PO DAILY [facility] Last Admin: 06/27/17 09:02 Dose: 10 mg Aspirin (Ecotrin) 81 mg PO DAILY [facility] Last Admin: 06/27/17 09:03 Dose: 81 mg Atorvastatin Calcium (Lipitor) 20 mg PO DIN [facility] Last Admin: 06/26/17 17:29 Dose: 20 mg Famotidine (Pepcid) 40 mg PO HS [facility] Last Admin: 06/26/17 21:21 Dose: 40 mg Dextrose (Dextrose 5% In Water 1000 Ml) 1,000 mls @ 100 mls/hr IV .Q10H [facility] Last Admin: 06/26/17 10:02 Dose: 100 mls/hr Lorazepam (Ativan) 1 mg IVP Q6H PRN; Protocol PRN Reason: Anxiety Last Admin: 06/27/17 01:01 Dose: 1 mg Lorazepam (Ativan) 1 mg PO Q6H [facility] PRN Reason: Protocol Last Admin: 06/27/17 08:30 Dose: Not Given Metoprolol Tartrate (Lopressor) 50 mg PO BID [facility] Last Admin: 06/27/17 09:03 Dose: 50 mg Sertraline HCl (Zoloft) 100 mg PO DAILY [facility] Last Admin: 06/27/17 09:03 Dose: 100 mg - Labs Labs: 06/27/17 09:00 06/27/17 09:00 PT 1.1 SECONDS (9.4-12.5) L 06/25/17 15:32 INR 0.99 (0.93-1.08) 06/25/17 15:32 APTT 29.0 Seconds (25.1-36.5) 06/25/17 15:32 Attending/Attestation - Attestation I have personally seen and examined this patient.: Yes I have fully participated in the care of the patient.: Yes I have reviewed all pertinent clinical information, including history, physical exam and plan: Yes Notes (Text): 06/27/17 14:25 56 year old male with past medical history of CAD, alcohol abuse and depression who is admitted for alcohol withdrawal and fall. Continue with tapering ativan. He was counselled on alcohol abstinence. PT evaluation is requested. He was also seen by psychiatry for depression. Elevated LFTs are likely secondary to chronic ETOH abuse. Will monitor. Cotninue with aspirin, metoprolol and statin for history of CAD. He is on norvasc for hypertension. Sweta Flores MD Hospitalist."
[2017-06-28] MEDS ORDERED: Multivitamin Therapeutic Tab PO SCH (08:00)
[2017-06-28 08:12] LABS: BASO # 0.06 K/mm3 (0.0-2.0); EOS # 0.1 (0.0-0.7); EOS % 1.7 % (1.5-5.0); GRAN # 3.13 (1.4-6.5); GRAN % 54.3 % (50.0-68.0); HEMOGLOBIN 12.9 g/dL (14.0-18.0); LYMPH # 1.6 (1.2-3.4); LYMPH % 27.6 % (22.0-35.0); MEAN CELL VOLUME 97.5 fl (80.0-105.0); MEAN CORPUSCULAR HEMOGLOBIN 32.7 pg (25.0-35.0); MEAN CORPUSCULAR HGB CONC 33.6 g/dl (31.0-37.0); MEAN PLATELET VOLUME 10.6 fl (7.0-11.0); MONO # 0.9 (0.1-0.6); MONO % 15.4 % (1.0-6.0); RBC 3.94 10^6/uL (3.5-6.1); RED CELL DISTRIBUTION WIDTH 14.2 % (11.5-14.5); WHITE BLOOD COUNT 5.8 10^3/ul (4.5-11.0)
[2017-06-28 08:29] LABS: ALB/GLOB RATIO 1.3 (1.1-1.8); ALBUMIN 4.5 g/dL (3.0-4.8); ALT/SGPT 65 U/L (7-56); AST/SGOT 62 U/L (17-59); BLOOD UREA NITROGEN 12 mg/dL (7-21); CALCIUM 9.6 mg/dL (8.4-10.5); GFR AFRICAN-AMERICAN > 60; GFR NON-AFRICAN AMERICAN > 60
--- NOTE | 2017-06-28 15:24 | CP.PCM.DIS ---
<Ramesh Fraga - Last Filed: 07/01/17 15:29> Provider - Provider Date of Admission: 06/27/17 15:07 Attending physician: Sweta Flores MD Primary care physician: NO PRIMARY CARE PROVIDER Consults: Marvin Time Spent in preparation of Discharge (in minutes): 70 Hospital Course - Lab Results Lab Results: Most Recent Lab Values WBC 5.8 10^3/ul (4.5-11.0) D 06/28/17 07:30 RBC 3.94 10^6/uL (3.5-6.1) 06/28/17 07:30 Hgb 12.9 g/dL (14.0-18.0) L 06/28/17 07:30 Hct 38.4 % (42.0-52.0) L 06/28/17 07:30 MCV 97.5 fl (80.0-105.0) 06/28/17 07:30 MCH 32.7 pg (25.0-35.0) 06/28/17 07:30 MCHC 33.6 g/dl (31.0-37.0) 06/28/17 07:30 RDW 14.2 % (11.5-14.5) 06/28/17 07:30 Plt Count 139 10^3/uL (120.0-450.0) 06/28/17 07:30 MPV 10.6 fl (7.0-11.0) 06/28/17 07:30 Gran % 54.3 % (50.0-68.0) 06/28/17 07:30 Lymph % (Auto) 27.6 % (22.0-35.0) 06/28/17 07:30 [place] % (Auto) 15.4 % (1.0-6.0) H 06/28/17 07:30 Eos % (Auto) 1.7 % (1.5-5.0) 06/28/17 07:30 Baso % (Auto) 1.0 % (0.0-3.0) 06/28/17 07:30 Gran # 3.13 (1.4-6.5) 06/28/17 07:30 Lymph # 1.6 (1.2-3.4) 06/28/17 07:30 [place] # 0.9 (0.1-0.6) H 06/28/17 07:30 Eos # 0.1 (0.0-0.7) 06/28/17 07:30 Baso # 0.06 K/mm3 (0.0-2.0) 06/28/17 07:30 PT 1.1 SECONDS (9.4-12.5) L 06/25/17 15:32 INR 0.99 (0.93-1.08) 06/25/17 15:32 APTT 29.0 Seconds (25.1-36.5) 06/25/17 15:32 pO2 115 mm/Hg (30-55) H 06/25/17 16:34 VBG pH 7.39 (7.32-7.43) 06/25/17 16:34 VBG pCO2 37.0 (40-60) L 06/25/17 16:34 VBG HCO3 22.4 mmol/l (21-28) 06/25/17 16:34 VBG O2 Sat (Calc) 98.2 % (40-65) H 06/25/17 16:34 VBG Base Excess -2.2 mmol/L (0.0-2.0) L 06/25/17 16:34 Sodium 136 mmol/L (132-148) 06/28/17 07:30 Potassium 3.9 mmol/L (3.6-5.0) 06/28/17 07:30 Chloride 103 mmol/L (98-107) 06/28/17 07:30 Carbon Dioxide 24 mmol/L (21-33) 06/28/17 07:30 Anion Gap 13 (10-20) 06/28/17 07:30 BUN 12 mg/dL (7-21) 06/28/17 07:30 Creatinine 0.7 mg/dl (0.8-1.5) L 06/28/17 07:30 Est GFR ( Amer) > 60 06/28/17 07:30 Est GFR (Non-Af Amer) > 60 06/28/17 07:30 POC Glucose (mg/dL) 96 mg/dL (65-110) 06/25/17 15:20 Random Glucose 91 mg/dL (70-110) 06/28/17 07:30 Calcium 9.6 mg/dL (8.4-10.5) 06/28/17 07:30 Total Bilirubin 0.9 mg/dL (0.2-1.3) 06/28/17 07:30 AST 62 U/L (17-59) H D 06/28/17 07:30 ALT 65 U/L (7-56) H 06/28/17 07:30 Alkaline Phosphatase 68 U/L (38-126) 06/28/17 07:30 Total Protein 8.1 g/dL (5.8-8.3) 06/28/17 07:30 Albumin 4.5 g/dL (3.0-4.8) 06/28/17 07:30 Globulin 3.6 gm/dL 06/28/17 07:30 Albumin/Globulin Ratio 1.3 (1.1-1.8) 06/28/17 07:30 Lipase 482 U/L (23-300) H 06/25/17 15:32 Urine Color Light yellow (YELLOW) 06/25/17 16:28 Urine Appearance Clear (CLEAR) 06/25/17 16:28 Urine pH 6.5 (4.7-8.0) 06/25/17 16:28 Ur Specific [place] <= 1.005 (1.005-1.035) 06/25/17 16:28 Urine Protein Negative mg/dL (<30 mg/dL) 06/25/17 16:28 Urine Glucose (UA) Negative mg/dL (NEGATIVE) 06/25/17 16:28 Urine Ketones Negative mg/dL (NEGATIVE) 06/25/17 16:28 Urine Blood Trace-intact (NEGATIVE) H 06/25/17 16:28 Urine Nitrate Negative (NEGATIVE) 06/25/17 16:28 Urine Bilirubin Negative (NEGATIVE) 06/25/17 16:28 Urine Urobilinogen 0.2 E.U./dL (<1 E.U./dL) 06/25/17 16:28 Ur Leukocyte Esterase Negative Shahzad/uL (NEGATIVE) 06/25/17 16:28 Urine RBC 0 - 2 /hpf (0-2) 06/25/17 16:28 Urine WBC Negative /hpf (0-6) 06/25/17 16:28 Ur Epithelial Cells None /hpf (0-5) 06/25/17 16:28 Urine Osmolality 140 mosm/kg (300-1000) L 06/26/17 01:45 Ur Random Sodium 21 meq/L 06/26/17 01:45 Salicylates < 1 mg/dL (2.0-20.0) L 06/25/17 15:32 Urine Opiates Screen Negative (NEGATIVE) 06/25/17 16:28 Urine Methadone Screen Negative (NEGATIVE) 06/25/17 16:28 Acetaminophen < 10.0 ug/ml (10.0-20.0) L 06/25/17 15:32 Ur Barbiturates Screen Negative (NEGATIVE) 06/25/17 16:28 Ur Phencyclidine Scrn Negative (NEGATIVE) 06/25/17 16:28 Ur Amphetamines Screen Negative (NEGATIVE) 06/25/17 16:28 U Benzodiazepines Scrn Negative (NEGATIVE) 06/25/17 16:28 U Oth Cocaine Metabols Negative (NEGATIVE) 06/25/17 16:28 U Cannabinoids Screen Negative (NEGATIVE) 06/25/17 16:28 Alcohol, Quantitative 278 mg/dL (0-10) H 06/25/17 15:32 - Hospital Course Hospital Course: 56 year old inebriated male with a past medical history of CAD, alcoholism, dyslipidemia, and depression who presented after an unwitnessed fall and for concerns for alcohol withdrawal. Initial labs and imaging revealed a BAL of 278 and a serum Na of 123. For the fall: CT head showed no evidence of acute intracranial hemorrhage and CT of Maxillofacial No evidence of acute displaced fracture in the maxillofacial bones. Re-demonstrated is a deformity in the nasal bone likely from old fracture. Chest X-ray showed no active disease. EKG showed sinus rhythm with 1st degree AV block; Prolonged QT; left atrial enlargement. For alcohol withdrawal he was placed on Ativan scheduled and PRN, Fall precautions, seizure precautions, and CIWA protocol . He was also given Multivitamin, Folic Acid, and Thiamine. The Hyponatremia resolved and for his HTN we Continued Metoprolol Tartate 50 mg BID and Norvasc 10mg Daily. For depression we continued Sertaline 100 mg PO daily and psychiatry was consulted. Patient Refused rehab, detox, inpatient psych stabilization, naltrexone treatment Patient was also given Duonebs PRN for dyspnea and Aspirin 81 mg PO daily and Lipitor 20 mg Po nightly for CAD. He was also placed on appropriate DVT/GI Prophylaxis. Over his stay his symptoms of withdrawal improved and patient was able to walk with steady gait and balance. Patient was counseled on alcohol use and was discharged to home. Discharge Exam - Head Exam Head Exam: ATRAUMATIC, NORMAL INSPECTION, NORMOCEPHALIC - Eye Exam Eye Exam: EOMI, Normal appearance Pupil Exam: NORMAL ACCOMODATION, PERRL - Respiratory Exam Respiratory Exam: NORMAL BREATHING PATTERN - Cardiovascular Exam Cardiovascular Exam: REGULAR RHYTHM, +S1, +S2 - GI/Abdominal Exam GI & Abdominal Exam: Normal Bowel Sounds, Unremarkable - Neurological Exam Neurological exam: Alert, CN II-XII Intact, Oriented x3 - Psychiatric Exam Psychiatric exam: Normal Affect, Normal Mood - Skin Skin Exam: Normal Color Discharge Plan - Follow Up Plan Condition: FAIR Disposition: HOME/ ROUTINE Instructions: Hyponatremia (GEN), Abuse of Alcohol (GEN), Fall Prevention (GEN) Additional Instructions: PLEASE FOLOW UP WITH WITH THE [facility] CALL AND MAKE APPOINTMENT Referrals: PCP,NO [Primary Care Provider] - <Sweta Flores - Last Filed: 07/01/17 15:56> Provider - Provider Date of Admission: 06/27/17 15:07 Attending physician: Sweta Flores MD Primary care physician: NO PRIMARY CARE PROVIDER Hospital Course - Lab Results Lab Results: Most Recent Lab Values WBC 5.8 10^3/ul (4.5-11.0) D 06/28/17 07:30 RBC 3.94 10^6/uL (3.5-6.1) 06/28/17 07:30 Hgb 12.9 g/dL (14.0-18.0) L 06/28/17 07:30 Hct 38.4 % (42.0-52.0) L 06/28/17 07:30 MCV 97.5 fl (80.0-105.0) 06/28/17 07:30 MCH 32.7 pg (25.0-35.0) 06/28/17 07:30 MCHC 33.6 g/dl (31.0-37.0) 06/28/17 07:30 RDW 14.2 % (11.5-14.5) 06/28/17 07:30 Plt Count 139 10^3/uL (120.0-450.0) 06/28/17 07:30 MPV 10.6 fl (7.0-11.0) 06/28/17 07:30 Gran % 54.3 % (50.0-68.0) 06/28/17 07:30 Lymph % (Auto) 27.6 % (22.0-35.0) 06/28/17 07:30 [place] % (Auto) 15.4 % (1.0-6.0) H 06/28/17 07:30 Eos % (Auto) 1.7 % (1.5-5.0) 06/28/17 07:30 Baso % (Auto) 1.0 % (0.0-3.0) 06/28/17 07:30 Gran # 3.13 (1.4-6.5) 06/28/17 07:30 Lymph # 1.6 (1.2-3.4) 06/28/17 07:30 [place] # 0.9 (0.1-0.6) H 06/28/17 07:30 Eos # 0.1 (0.0-0.7) 06/28/17 07:30 Baso # 0.06 K/mm3 (0.0-2.0) 06/28/17 07:30 PT 1.1 SECONDS (9.4-12.5) L 06/25/17 15:32 INR 0.99 (0.93-1.08) 06/25/17 15:32 APTT 29.0 Seconds (25.1-36.5) 06/25/17 15:32 pO2 115 mm/Hg (30-55) H 06/25/17 16:34 VBG pH 7.39 (7.32-7.43) 06/25/17 16:34 VBG pCO2 37.0 (40-60) L 06/25/17 16:34 VBG HCO3 22.4 mmol/l (21-28) 06/25/17 16:34 VBG O2 Sat (Calc) 98.2 % (40-65) H 06/25/17 16:34 VBG Base Excess -2.2 mmol/L (0.0-2.0) L 06/25/17 16:34 Sodium 136 mmol/L (132-148) 06/28/17 07:30 Potassium 3.9 mmol/L (3.6-5.0) 06/28/17 07:30 Chloride 103 mmol/L (98-107) 06/28/17 07:30 Carbon Dioxide 24 mmol/L (21-33) 06/28/17 07:30 Anion Gap 13 (10-20) 06/28/17 07:30 BUN 12 mg/dL (7-21) 06/28/17 07:30 Creatinine 0.7 mg/dl (0.8-1.5) L 06/28/17 07:30 Est GFR ( Amer) > 60 06/28/17 07:30 Est GFR (Non-Af Amer) > 60 06/28/17 07:30 POC Glucose (mg/dL) 96 mg/dL (65-110) 06/25/17 15:20 Random Glucose 91 mg/dL (70-110) 06/28/17 07:30 Calcium 9.6 mg/dL (8.4-10.5) 06/28/17 07:30 Total Bilirubin 0.9 mg/dL (0.2-1.3) 06/28/17 07:30 AST 62 U/L (17-59) H D 06/28/17 07:30 ALT 65 U/L (7-56) H 06/28/17 07:30 Alkaline Phosphatase 68 U/L (38-126) 06/28/17 07:30 Total Protein 8.1 g/dL (5.8-8.3) 06/28/17 07:30 Albumin 4.5 g/dL (3.0-4.8) 06/28/17 07:30 Globulin 3.6 gm/dL 06/28/17 07:30 Albumin/Globulin Ratio 1.3 (1.1-1.8) 06/28/17 07:30 Lipase 482 U/L (23-300) H 06/25/17 15:32 Urine Color Light yellow (YELLOW) 06/25/17 16:28 Urine Appearance Clear (CLEAR) 06/25/17 16:28 Urine pH 6.5 (4.7-8.0) 06/25/17 16:28 Ur Specific [place] <= 1.005 (1.005-1.035) 06/25/17 16:28 Urine Protein Negative mg/dL (<30 mg/dL) 06/25/17 16:28 Urine Glucose (UA) Negative mg/dL (NEGATIVE) 06/25/17 16:28 Urine Ketones Negative mg/dL (NEGATIVE) 06/25/17 16:28 Urine Blood Trace-intact (NEGATIVE) H 06/25/17 16:28 Urine Nitrate Negative (NEGATIVE) 06/25/17 16:28 Urine Bilirubin Negative (NEGATIVE) 06/25/17 16:28 Urine Urobilinogen 0.2 E.U./dL (<1 E.U./dL) 06/25/17 16:28 Ur Leukocyte Esterase Negative Shahzad/uL (NEGATIVE) 06/25/17 16:28 Urine RBC 0 - 2 /hpf (0-2) 06/25/17 16:28 Urine WBC Negative /hpf (0-6) 06/25/17 16:28 Ur Epithelial Cells None /hpf (0-5) 06/25/17 16:28 Urine Osmolality 140 mosm/kg (300-1000) L 06/26/17 01:45 Ur Random Sodium 21 meq/L 06/26/17 01:45 Salicylates < 1 mg/dL (2.0-20.0) L 06/25/17 15:32 Urine Opiates Screen Negative (NEGATIVE) 06/25/17 16:28 Urine Methadone Screen Negative (NEGATIVE) 06/25/17 16:28 Acetaminophen < 10.0 ug/ml (10.0-20.0) L 06/25/17 15:32 Ur Barbiturates Screen Negative (NEGATIVE) 06/25/17 16:28 Ur Phencyclidine Scrn Negative (NEGATIVE) 06/25/17 16:28 Ur Amphetamines Screen Negative (NEGATIVE) 06/25/17 16:28 U Benzodiazepines Scrn Negative (NEGATIVE) 06/25/17 16:28 U Oth Cocaine Metabols Negative (NEGATIVE) 06/25/17 16:28 U Cannabinoids Screen Negative (NEGATIVE) 06/25/17 16:28 Alcohol, Quantitative 278 mg/dL (0-10) H 06/25/17 15:32 Attending/Attestation - Attestation I have personally seen and examined this patient.: Yes I have fully participated in the care of the patient.: Yes I have reviewed all pertinent clinical information, including history, physical exam and plan: Yes Notes (Text): 07/01/17 15:52 56 year old male with past medical history of CAD, alcohol abuse and depression who is admitted for alcohol withdrawal and fall. He was on tapering ativan for alcohol withdrawal. His symptoms improved and he was ambulating in hallway. He has some elevation of LFTs, likely secondary to chronic ETOH abuse. He is discharged home to follow up with his pmd or [facility]. He was counselled on alcohol abstinence. Sweta Flores MD Hospitalist.
[2017-06-28 16:06] VITALS: PULSE 76; RESP 20; TEMP 98.6; O2SAT 95
[2017-06-28 17:41] VITALS: BP 156/98
== END 2017-06-28 18:38 | disposition home or self-care (01) | DRG 750 ==
LOC: ED 14:59 → ERH 21:56 → 5RSO 06-26 00:07 → OBSVTOIN 06-27 15:07 → 5RSO 06-28 12:02
PROVIDERS: ADMIT Internal Medicine; ATTEND Internal Medicine
DX: F10.239 Alcohol dependence with withdrawal, unspecified (principal); E87.1 Hypo-osmolality and hyponatremia; I48.91 Unspecified atrial fibrillation; J44.9 Chronic obstructive pulmonary disease, unspecified; E78.5 Hyperlipidemia, unspecified; F32.9 Major depressive disorder, single episode, unspecified; I10 Essential (primary) hypertension; I25.10 Atherosclerotic heart disease of native coronary artery without angina pectoris; F19.94 Other psychoactive substance use, unspecified with psychoactive substance-induced mood disorder; S01.112A Laceration without foreign body of left eyelid and periocular area, initial encounter; I44.0 Atrioventricular block, first degree; T50.2X5A Adverse effect of carbonic-anhydrase inhibitors, benzothiadiazides and other diuretics, initial encounter; W19.XXXA Unspecified fall, initial encounter; Z91.14 Patient's other noncompliance with medication regimen; Y92.9 Unspecified place or not applicable; Z95.5 Presence of coronary angioplasty implant and graft

== ENCOUNTER 2017-08-21 12:40 | Inpatient (IN) | payer MEDICAID, OTHER ==
[2017-08-21 12:55] VITALS: BMI 25.0
--- NOTE | 2017-08-21 13:14 | ED PDOC ---
Arrival/HPI - General Chief Complaint: Alcohol Ingestion Time Seen by Provider: 08/21/17 12:45 Historian: Patient - History of Present Illness Narrative History of Present Illness (Text): 08/21/17 13:10 Keanu Smyth is a 56 year old male brought in by [facility] for suspected ETOH intoxication. Patient denies any fever, chills, chest pain, shortness of breath, nausea, vomiting, diarrhea, back pain, neck pain, headache, dizziness or any other complaints. Time/Duration: Prior to Arrival Symptom Onset: Gradual Symptom Course: Unchanged Activities at Onset: Light Context: Home Past Medical History - Provider Review Nursing Documentation Reviewed: Yes - Infectious Disease Hx of Infectious Diseases: None - Tetanus Immunization Tetanus Immunization: Unknown - Cardiac Hx Cardiac Disorders: Yes (cad) Hx Hypertension: Yes - Pulmonary Hx Tuberculosis: No - Neurological HX Cerebrovascular Accident: No Hx Seizures: No - HEENT Hx HEENT Disorder: No - Renal Hx Renal Disorder: No - Endocrine/Metabolic Hx Endocrine Disorders: No - Hematological/Oncological Hx Cancer: No - Integumentary Hx Dermatological Disorder: No - Musculoskeletal/Rheumatological Hx Falls: Yes - Gastrointestinal Hx Gastrointestinal Disorders: No - Genitourinary/Gynecological Hx Sexually Transmitted Diseases: No - Psychiatric Hx Psychophysiologic Disorder: Yes Hx Depression: Yes Hx Substance Use: No - Past Surgical History Past Surgical History: No Previous - Surgical History Hx Cardiac Catheterization: Yes Hx Coronary Stent: Yes (X1) - Anesthesia Hx Anesthesia: Yes Hx Anesthesia Reactions: No Hx Malignant Hyperthermia: No - Suicidal Assessment Feels Threatened In Home Enviroment: No Family/Social History - Physician Review Nursing Documentation Reviewed: Yes Family/Social History: Unknown Family HX Smoking Status: Light Smoker < 10 Cigarettes Daily Hx Alcohol Use: Yes Amount per day: 5 Hx Substance Use: No Hx Substance Use Treatment: No Allergies/Home Meds Allergies/Adverse Reactions: Allergies No Known Allergies Allergy (Verified 06/17/17 11:49) Review of Systems - Physician Review All systems were reviewed & negative as marked: Yes - Review of Systems Constitutional: Normal Eyes: Normal ENT: Normal Respiratory: Normal. absent: SOB, Cough Cardiovascular: Normal. absent: Chest Pain Gastrointestinal: Normal. absent: Abdominal Pain, Diarrhea, Nausea, Vomiting Genitourinary Male: Normal. absent: Dysuria, Frequency, Hematuria, Urinary Output Changes Musculoskeletal: Normal. absent: Back Pain, Neck Pain Skin: Normal. absent: Rash Neurological: Normal. absent: Headache, Dizziness Endocrine: Normal Hemo/Lymphatic: Normal Psychiatric: Normal Physical Exam Vital Signs Reviewed: Yes Vital Signs Temp Pulse Resp BP Pulse Ox 08/21/17 16:50 82 18 111/66 97 08/21/17 12:42 99.2 F 81 18 104/54 L 95 Temperature: Afebrile Blood Pressure: Normal Pulse: Regular Respiratory Rate: Normal Appearance: Positive for: Well-Appearing, Non-Toxic, Comfortable Pain Distress: None Mental Status: Positive for: Alert and Oriented X 3 - Systems Exam Head: Present: Atraumatic, Normocephalic Pupils: Present: PERRL Extroacular Muscles: Present: EOMI Conjunctiva: Present: Normal Mouth: Present: Moist Mucous Membranes Neck: Present: Normal Range of Motion Respiratory/Chest: Present: Clear to Auscultation, Good Air Exchange. No: Respiratory Distress, Accessory Muscle Use Cardiovascular: Present: Regular Rate and Rhythm, Normal S1, S2. No: Murmurs Abdomen: Present: Normal Bowel Sounds. No: Tenderness, Distention, Peritoneal Signs Back: Present: Normal Inspection Upper Extremity: Present: Normal Inspection. No: Cyanosis, Edema Lower Extremity: Present: Normal Inspection. No: Edema, CALF TENDERNESS Neurological: Present: GCS=15, CN II-XII Intact, Speech Normal Skin: Present: Warm, Dry, Normal Color. No: Rashes Psychiatric: Present: Alert, Intoxicated Medical Decision Making ED Course and Treatment: 08/21/17 13:13 Impression: 56 year old male brought into the emergency department for suspected ETOH intoxication. Plan: -- EKG -- Chest X-ray -- Labs -- Urinalysis -- Reassess and disposition Progress Notes: 08/21/17 14:00 Chest X-ray reviewed, shows: LUNGS: The lungs are clear. PLEURA: No significant pleural effusion identified, no pneumothorax apparent. CARDIOVASCULAR: The heart is normal in size. OSSEOUS STRUCTURES: No significant abnormalities. VISUALIZED UPPER ABDOMEN: Normal. OTHER FINDINGS: None. IMPRESSION: No active pulmonary disease. 08/21/17 14:29 ekg nsr 77 qtc 500. 08/21/17 15:58 pt noted to have elevated tylenol. upon reassesemnt, pt continues to deny any ingestion. case discussed with [place] poison control. recommend NAC. dr dave accepts case. repeat tylenol still elevated. - Lab Interpretations Lab Results: 08/21/17 13:20 08/21/17 13:20 Lab Results 08/21/17 15:07: Total Creatine Kinase 394 H, CK-MB (CK-2) 2.5, CK-MB (CK-2) % Cancelled 08/21/17 15:07: Acetaminophen 43.0 H 08/21/17 14:00: Magnesium 1.9 08/21/17 13:20: Alcohol, Quantitative 151 H 08/21/17 13:20: Salicylates < 1 L, Acetaminophen 56.0 H* 08/21/17 13:20: Sodium 133, Potassium 4.2, Chloride 94 L, Carbon Dioxide 19 L, Anion Gap 24 H, BUN 22 H, Creatinine 1.2, Est GFR ( Amer) > 60, Est GFR ( Non-Af Amer) > 60, Random Glucose 81, Calcium 8.6, Total Bilirubin 1.6 H, AST 69 H, ALT 54, Alkaline Phosphatase 51, Total Protein 7.6, Albumin 4.4, Globulin 3.3, Albumin/Globulin Ratio 1.3 08/21/17 13:20: WBC 6.2, RBC 4.16, Hgb 13.7 L, Hct 38.4 L, MCV 92.3 D, MCH 32.9 , MCHC 35.7, RDW 13.0, Plt Count 287, MPV 9.9, Gran % 71.9 H, Lymph % (Auto) 19.9 L, [place] % (Auto) 7.9 H, Eos % (Auto) 0.0 L, Baso % (Auto) 0.3, Gran # 4.44 , Lymph # (Auto) 1.2, [place] # (Auto) 0.5, Eos # (Auto) 0.0, Baso # (Auto) 0.02 - RAD Interpretation Radiology Orders: 08/21/17 13:06 CHEST PORTABLE [RAD] Stat - Medication Orders Current Medication Orders: Amlodipine Besylate (Norvasc) 10 mg PO DAILY [facility] Last Admin: 08/22/17 09:23 Dose: 10 mg MAR Blood Pressure Document 08/22/17 09:23 MANIL (Rec: 08/22/17 09:23 [facility]IL [id number]) Blood Pressure Blood Pressure (100/60-150/90) 162/101 Atorvastatin Calcium (Lipitor) 20 mg PO DIN [facility] Last Admin: 08/21/17 17:25 Dose: 20 mg Folic Acid (Folic Acid) 1 mg PO DAILY [facility] Last Admin: 08/22/17 09:24 Dose: 1 mg Heparin Sodium (Porcine) (Heparin) 5,000 units SC Q8 [facility] PRN Reason: Protocol Last Admin: 08/22/17 06:21 Dose: 5,000 units Subcutaneous Administrations Document 08/22/17 06:21 AJP (Rec: 08/22/17 06:21 AJP [id number]) Injection Site MAR Injection Site Right Arm Charges for Administration # of Subcutaneous Administrations 1 Acetylcysteine 7,260 mg/ (Dextrose) 1,036.3 mls @ 62.5 mls/hr IVPB ONCE ONE Stop: 08/22/17 13:22 Last Admin: 08/21/17 22:30 Dose: 62.5 mls/hr eMAR Start Stop Document 08/21/17 22:30 AJP (Rec: 08/21/17 22:31 AJP [id number]) Intravenous Solution Start Date 08/21/17 Start Time 22:31 Sodium Chloride (Sodium Chloride 0.9%) 100 mls @ 100 mls/hr IV .Q1H [facility] Last Admin: 08/21/17 17:25 Dose: 100 mls/hr eMAR Start Stop Document 08/21/17 17:25 EQ (Rec: 08/21/17 17:25 EQ [id number]) Intravenous Solution Start Date 08/21/17 Start Time 17:25 Potassium Chloride (Potassium Chloride 20 Meq/100 Ml) 20 meq in 100 mls @ 50 mls/hr IVPB Q2H [facility] Stop: 08/22/17 13:14 Last Admin: 08/22/17 09:24 Dose: 50 mls/hr eMAR Start Stop Document 08/22/17 09:24 MANIL (Rec: 08/22/17 09:29 MANIL [id number]) Intravenous Solution Start Date 08/22/17 Start Time 09:28 End Date 08/22/17 End time 11:28 Total Infusion Time 120 Lorazepam (Ativan) 2 mg PO Q6H PRN; Protocol PRN Reason: Symptoms of alcohol withdrawl Last Admin: 08/22/17 09:47 Dose: 2 mg Behavioural Document 08/22/17 09:47 MANIL (Rec: 08/22/17 09:47 MANIL [id number]) Maintenance Maintenance Dose Yes Nonmedicinal Nonmedicinal Interventions Redirect Behavior Behavior for Medication: Anxiety Re-Assess: Reassess Psych Meds Document 08/22/17 10:47 MANIL (Rec: 08/22/17 10:52 MANIL [id number]) Reassess Psych Med Effective Metoprolol Tartrate (Lopressor) 50 mg PO BID [facility] Last Admin: 08/22/17 06:21 Dose: 50 mg MAR Pulse and Blood Pressure Document 08/22/17 06:21 AJP (Rec: 08/22/17 06:21 AJP [id number]) Pulse Pulse Rate (60-90) 82 Blood Pressure Blood Pressure (100/60-150/90) 162/101 Pantoprazole Sodium (Protonix Ec Tab) 40 mg PO 0600 [facility] Last Admin: 08/22/17 06:21 Dose: 40 mg Potassium Chloride (K-Dur 20 Meq Er Tab) 40 meq PO ONCE ONE Stop: 08/22/17 13:01 Sertraline HCl (Zoloft) 100 mg PO DAILY [facility] Last Admin: 08/22/17 09:23 Dose: 100 mg Thiamine HCl (Vitamin B1 Tab) 100 mg PO DAILY [facility] Last Admin: 08/22/17 09:30 Dose: 100 mg Valsartan (Diovan) 320 mg PO DAILY [facility] Discontinued Medications Amlodipine Besylate (Norvasc) 10 mg PO DAILY [facility] Hydrochlorothiazide (Hydrodiuril) 25 mg PO DAILY [facility] Acetylcysteine 10,890 mg/ (Dextrose) 254.45 mls @ 200 mls/hr IVPB ONCE ONE Stop: 08/21/17 16:42 Last Admin: 08/21/17 15:57 Dose: 200 mls/hr eMAR Start Stop Document 08/21/17 15:57 EQ (Rec: 08/21/17 15:58 EQ [id number]) Intravenous Solution Start Date 08/21/17 Start Time 15:58 Acetylcysteine 3,630 mg/ (Dextrose) 518.15 mls @ 125 mls/hr IVPB ONCE ONE Stop: 08/21/17 20:48 Last Admin: 08/21/17 18:07 Dose: 125 mls/hr eMAR Start Stop Document 08/21/17 18:07 SML (Rec: 08/21/17 18:07 [facility] [id number]) Intravenous Solution Start Date 08/21/17 Start Time 18:07 End Date 08/21/17 End time 22:30 Total Infusion Time 263 Pneumococcal Polyvalent Vaccine (Pneumovax 23 Vaccine) 0.5 ml IM .ONCE ONE Stop: 08/21/17 18:44 Potassium Chloride (K-Dur 20 Meq Er Tab) 40 meq PO STAT [facility] Stop: 08/22/17 09:03 Last Admin: 08/22/17 09:23 Dose: 40 meq - Scribe Statement The provider has reviewed the documentation as recorded by the Frankie Griffiths All medical record entries made by the Frankie were at my direction and personally dictated by me. I have reviewed the chart and agree that the record accurately reflects my personal performance of the history, physical exam, medical decision making, and the department course for this patient. I have also personally directed, reviewed, and agree with the discharge instructions and disposition. Disposition/Present on Arrival - Present on Arrival Any Indicators Present on Arrival: No History of DVT/PE: No History of Uncontrolled Diabetes: No Urinary Catheter: No History of Decub. Ulcer: No History Surgical Site Infection Following: None - Disposition Have Diagnosis and Disposition been Completed?: Yes Diagnosis: Tylenol toxicity, Alcohol abuse Disposition: HOSPITALIZED Disposition Time: 16:21 Patient Problems: Current Active Problems Problem Status Onset Alcohol abuse Acute Tylenol toxicity Acute Condition: STABLE
[2017-08-21 13:31] LABS: BASO # 0.02 K/mm3 (0.0-2.0); BASO % 0.3 % (0.0-3.0); GRAN # 4.44 (1.4-6.5); GRAN % 71.9 % (50.0-68.0); HEMOGLOBIN 13.7 g/dL (14.0-18.0); LYMPH # 1.2 (1.2-3.4); LYMPH % 19.9 % (22.0-35.0); MEAN CELL VOLUME 92.3 fl (80.0-105.0); MEAN CORPUSCULAR HEMOGLOBIN 32.9 pg (25.0-35.0); MEAN CORPUSCULAR HGB CONC 35.7 g/dl (31.0-37.0); MEAN PLATELET VOLUME 9.9 fl (7.0-11.0); MONO # 0.5 (0.1-0.6); MONO % 7.9 % (1.0-6.0); RBC 4.16 10^6/uL (3.5-6.1); WHITE BLOOD COUNT 6.2 10^3/ul (4.5-11.0)
--- NOTE | 2017-08-21 13:34 | RAD ---
HISTORY: pysch COMPARISON: 06/25/2017. FINDINGS: LUNGS: The lungs are clear. PLEURA: No significant pleural effusion identified, no pneumothorax apparent. CARDIOVASCULAR: The heart is normal in size. OSSEOUS STRUCTURES: No significant abnormalities. VISUALIZED UPPER ABDOMEN: Normal. OTHER FINDINGS: None. IMPRESSION: No active pulmonary disease.
[2017-08-21 14:01] LABS: ALB/GLOB RATIO 1.3 (1.1-1.8); ALBUMIN 4.4 g/dL (3.0-4.8); CALCIUM 8.6 mg/dL (8.4-10.5); GFR AFRICAN-AMERICAN > 60; GFR NON-AFRICAN AMERICAN > 60
[2017-08-21 14:09] LABS: ALT/SGPT 54 U/L (7-56); AST/SGOT 69 U/L (17-59); BLOOD UREA NITROGEN 22 mg/dL (7-21)
[2017-08-21 14:11] LABS: SALICYLATE < 1 mg/dL (2.0-20.0)
[2017-08-21] MEDS ORDERED: Acetylcysteine 10,890 MG in Dextrose 5% In Water 200 ML IVPB ONE (15:26)
[2017-08-21] MEDS ORDERED: Acetylcysteine 3,630 MG in Dextrose 5% In Water 500 ML IVPB ONE (16:40)
[2017-08-21 16:42] LABS: CK-MB 2.5 ng/mL (0.0-3.6)
[2017-08-21] MEDS ORDERED: Sodium Chloride 0.9% 100 ML IV SCH (17:00)
[2017-08-21 17:31] LABS: URINE APPEARANCE CLEAR (CLEAR); URINE BILIRUBIN NEGATIVE (NEGATIVE); URINE BLOOD NEGATIVE (NEGATIVE); URINE COLOR YELLOW (YELLOW); URINE GLUCOSE (UA) NEGATIVE (NEGATIVE); URINE LEUKOCYTE ESTERASE NEGATIVE Leu/uL (NEGATIVE); URINE NITRATE NEGATIVE (NEGATIVE); URINE PROTEIN NEGATIVE mg/dL (<30 mg/dL); URINE UROBILINOGEN 0.2 E.U./dL (<1 E.U./dL)
--- NOTE | 2017-08-21 17:40 | CT ---
PROCEDURE: CT HEAD WITHOUT CONTRAST. HISTORY: history of fall. rule out hematoma COMPARISON: 06/25/2017. TECHNIQUE: Axial computed tomography images were obtained through the head/brain without intravenous contrast. Radiation dose: Total exam DLP = 918.29 mGy-cm. This CT exam was performed using one or more of the following dose reduction techniques: Automated exposure control, adjustment of the mA and/or kV according to patient size, and/or use of iterative reconstruction technique. FINDINGS: HEMORRHAGE: No intracranial hemorrhage. BRAIN: There are mild chronic microangiopathic changes. There is no mass, mass effect or abnormal extra-axial fluid collection. VENTRICLES: The ventricles are normal in size, shape and configuration. CALVARIUM: There is no calvarial fracture or extracranial soft tissue swelling. PARANASAL SINUSES: Predominantly clear. MASTOID AIR CELLS: Predominantly clear. OTHER FINDINGS: None. IMPRESSION: No acute intracranial abnormality.
--- NOTE | 2017-08-21 17:44 | CP.PCM.HP ---
<Angel Goodson - Last Filed: 08/21/17 18:02> History of Present Illness - History of Present Illness History of Present Illness: PGY-1 H&P for Dr. Shine CC: Palpitations This is a 56 year old male with PMHx alcohol abuse, CAD with 1 stent, Paroxysmal A-fib (not on anticoagulation due to noncompliance and alcohol abuse history), hypertension, hyperlipidemia, depression who presented brought in by ambulance due to intoxication. Patient states that his neighbor found him and called an ambulance for him. Per patient, he has been experiencing palpitations and dry mouth since yesterday. Patient states that he took a lot of Aspirin for his palpitations because he thought that it would help him. He denies taking Acetaminophen/Tylenol. Patient has no other complaints at this time. Patient states that his palpitations have resolved in the emergency room. He denies fever, chills, headache, dizziness, tremors. Patient states that his last drink was two days ago on . PMHx: CAD s/p stent placement, Paroxysmal A-fib (not on anticoagulation due to noncompliance and alcohol abuse history), hypertension, hyperlipidemia, depression PSHx: Stent placement 6 years ago Allergies: NKA Social: Lives alone. 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 Drinks 15 eight ounce cans of beer daily with the last drink on per patient. Smokes e- cigarettes daily. Denies drug use. PMD: Dr. Victor Home medications: HCTZ 25 mg PO daily, Norvasc 5 mg PO daily, Valsartan 320 mg PO daily, Aspirin 81 mg PO daily, Lipitor 20 mg PO daily, Lopressor 50 mg PO BID , Zoloft 100 mg PO daily Present on Admission - Present on Admission Any Indicators Present on Admission: No Review of Systems - Constitutional Constitutional: absent: Chills, Fever - EENT Eyes: absent: Change in Vision Ears: absent: Decreased Hearing Nose/Mouth/Throat: absent: Nasal Congestion - Cardiovascular Cardiovascular: Palpitations (resolved in the ED). absent: Chest Pain - Respiratory Respiratory: absent: Cough, Dyspnea, Wheezing - Gastrointestinal Gastrointestinal: absent: Abdominal Pain, Constipation, Diarrhea, Nausea, Vomiting - Genitourinary Genitourinary: absent: Dysuria - Musculoskeletal Musculoskeletal: absent: Back Pain, Muscle Weakness - Integumentary Integumentary: absent: Rash - Neurological Neurological: absent: Dizziness, Numbness, Tingling, Tremor, Weakness - Psychiatric Psychiatric: absent: Anxiety - Endocrine Endocrine: Palpitations (resolved in the ED) Past Patient History - Infectious Disease Hx of Infectious Diseases: None - Tetanus Immunizations Tetanus Immunization: Unknown - Past Social History Smoking Status: Light Smoker < 10 Cigarettes Daily - CARDIAC Hx Cardiac Disorders: Yes (cad) Hx Hypertension: Yes - PULMONARY Hx Tuberculosis: No - NEUROLOGICAL HX Cerebrovascular Accident: No Hx Seizures: No - HEENT Hx HEENT Problems: No - RENAL Hx Chronic Kidney Disease: No - ENDOCRINE/METABOLIC Hx Endocrine Disorders: No - HEMATOLOGICAL/ONCOLOGICAL Hx Cancer: No - INTEGUMENTARY Hx Dermatological Problems: No - MUSCULOSKELETAL/RHEUMATOLOGICAL Hx Falls: Yes - GASTROINTESTINAL Hx Gastrointestinal Disorders: No - GENITOURINARY/GYNECOLOGICAL Hx Sexually Transmitted Disorders: No - PSYCHIATRIC Hx Psychophysiologic Disorder: Yes Hx Depression: Yes Hx Substance Use: No - SURGICAL HISTORY Hx Cardiac Catheterization: Yes Hx Coronary Stent: Yes (X1) - ANESTHESIA Hx Anesthesia: Yes Hx Anesthesia Reactions: No Hx Malignant Hyperthermia: No Meds Allergies/Adverse Reactions: Allergies Allergy/AdvReac Type Severity Reaction Status Date / Time No Known Allergies Allergy Verified 06/17/17 11:49 Physical Exam - Constitutional Appears: No Acute Distress - Head Exam Head Exam: ATRAUMATIC, NORMOCEPHALIC - Eye Exam Eye Exam: EOMI, PERRL - ENT Exam ENT Exam: Mucous Membranes Moist - Respiratory Exam Respiratory Exam: Clear to Auscultation Bilateral, NORMAL BREATHING PATTERN. absent: Rales, Rhonchi, Wheezes - Cardiovascular Exam Cardiovascular Exam: REGULAR RHYTHM, +S1, +S2. absent: Tachycardia, JVD - GI/Abdominal Exam GI & Abdominal Exam: Normal Bowel Sounds, Soft. absent: Distended, Guarding, Tenderness - Extremities Exam Extremities exam: Positive for: pedal pulses present. Negative for: pedal edema , tenderness - Neurological Exam Neurological exam: Alert, CN II-XII Intact, Oriented x3 Additional comments: No focal deficits on exam. Muscle strength testing 5/5 in all four extremities. No tremors noted on physical exam. - Psychiatric Exam Psychiatric exam: Normal Affect, Normal Mood - Skin Skin Exam: Dry, Intact, Warm Results - Vital Signs Recent Vital Signs: Last Vital Signs Temp 99.2 F 08/21/17 12:42 Pulse 81 02/24/18 12:42 Resp 18 08/21/17 12:42 BP 104/54 L 08/21/17 12:42 Pulse Ox 95 08/21/17 12:42 - Labs Result Diagrams: 08/21/17 13:20 08/21/17 13:20 Labs: Laboratory Results - last 24 hr 08/21/17 17:08 Urine Color Yellow Urine Appearance Clear Urine pH 6.0 Ur Specific [place] 1.020 Urine Protein Negative Urine Glucose (UA) Negative Urine Ketones Negative Urine Blood Negative Urine Nitrate Negative Urine Bilirubin Negative Urine Urobilinogen 0.2 Ur Leukocyte Esterase Negative Assessment & Plan - Assessment and Plan (Free Text) Assessment: This is a 56 year old male with PMHx alcohol abuse, CAD with 1 stent, Paroxysmal A-fib (not on anticoagulation due to noncompliance and alcohol abuse history), hypertension, hyperlipidemia, depression who presented brought in by ambulance due to intoxication. Patient's history is unreliable. Palpitations likely due to his paroxysmal A-fib for which he is not on anticoagulation due to poor compliance as well as his alcohol abuse history. Patient also with elevated acetaminophen levels. Per poison control recommendations and guidelines , patient placed on IV infusions of acetylcysteine. Plan: 1. Acetaminophen Overdose Patient needs sufficient education on the difference between Aspirin and Tylenol. Given loading dose in the ED per poison control recommendations. Per poison control's recommendations, Acetylcysteine infusion 50 mg/kg over 4 hours followed by another infusion 100 mg/kg over 16 hours f/u repeat acetaminophen level 2. Intoxication and history of alcohol abuse Serum alcohol elevated Head CT CIWA protocol Ativan 2 mg PO Q6H prn Thiamine 100 mg PO daily Folic acid 1 mg PO daily 3. History of Paroxysmal Atrial Fibrillation Rate control with home Lopressor 50 mg PO BID Not on home anticoagulation due to noncompliance and alcohol abuse history 4. History of Hypertension Continue Lopressor with holding parameters. Holding Norvasc, HCTZ, Diovan due to low blood pressure at the time of admission 5. History of Hyperlipidemia Continue home Lipitor 6. History of Depression Continue home Zoloft 7. Prophylaxis GI: Protonix DVT: Heparin Patient seen and discussed with Dr. Shine <Swathi Shine - Last Filed: 08/22/17 10:07> Results - Vital Signs Recent Vital Signs: Last Vital Signs Temp 98.3 F 08/22/17 07:58 Pulse 83 08/22/17 07:58 Resp 20 08/22/17 07:58 BP 162/101 H 08/22/17 09:23 Pulse Ox 96 08/22/17 07:58 - Labs Result Diagrams: 08/22/17 07:00 08/22/17 07:00 Labs: Laboratory Results - last 24 hr 08/21/17 08/21/17 08/22/17 17:08 17:08 05:00 WBC RBC Hgb Hct MCV MCH MCHC RDW Plt Count MPV Gran % Lymph % (Auto) Early % (Auto) Eos % (Auto) Baso % (Auto) Gran # Lymph # (Auto) Early # (Auto) Eos # (Auto) Baso # (Auto) APTT 26.6 Sodium Potassium Chloride Carbon Dioxide Anion Gap BUN Creatinine Est GFR ( Amer) Est GFR (Non-Af Amer) Random Glucose Calcium Phosphorus Magnesium Total Bilirubin AST ALT Alkaline Phosphatase Total Protein Albumin Globulin Albumin/Globulin Ratio Urine Color Yellow Urine Appearance Clear Urine pH 6.0 Ur Specific [place] 1.020 Urine Protein Negative Urine Glucose (UA) Negative Urine Ketones Negative Urine Blood Negative Urine Nitrate Negative Urine Bilirubin Negative Urine Urobilinogen 0.2 Ur Leukocyte Esterase Negative Urine Opiates Screen Negative Urine Methadone Screen Negative Acetaminophen Ur Barbiturates Screen Negative Ur Phencyclidine Scrn Negative Ur Amphetamines Screen Negative U Benzodiazepines Scrn Negative U Oth Cocaine Metabols Negative U Cannabinoids Screen Negative 08/22/17 08/22/17 08/22/17 07:00 07:00 07:00 WBC 6.8 RBC 4.27 Hgb 13.9 L Hct 39.9 L MCV 93.4 MCH 32.6 MCHC 34.8 RDW 13.0 Plt Count 227 MPV 10.5 Gran % 52.3 Lymph % (Auto) 36.3 H Early % (Auto) 10.4 H Eos % (Auto) 0.4 L Baso % (Auto) 0.6 Gran # 3.55 Lymph # (Auto) 2.5 Early # (Auto) 0.7 H Eos # (Auto) 0.0 Baso # (Auto) 0.04 APTT Sodium 139 Potassium 2.8 L* D Chloride 97 L Carbon Dioxide 28 Anion Gap 17 BUN 16 Creatinine 0.8 Est GFR ( Amer) > 60 Est GFR (Non-Af Amer) > 60 Random Glucose 100 Calcium 9.2 Phosphorus 3.2 Magnesium 2.3 H Total Bilirubin 2.6 H AST 67 H ALT 58 H Alkaline Phosphatase 58 Total Protein 7.6 Albumin 4.3 Globulin 3.4 Albumin/Globulin Ratio 1.3 Urine Color Urine Appearance Urine pH Ur Specific [place] Urine Protein Urine Glucose (UA) Urine Ketones Urine Blood Urine Nitrate Urine Bilirubin Urine Urobilinogen Ur Leukocyte Esterase Urine Opiates Screen Urine Methadone Screen Acetaminophen < 10.0 L Ur Barbiturates Screen Ur Phencyclidine Scrn Ur Amphetamines Screen U Benzodiazepines Scrn U Oth Cocaine Metabols U Cannabinoids Screen Attending/Attestation - Attestation I have personally seen and examined this patient.: Yes I have fully participated in the care of the patient.: Yes I have reviewed all pertinent clinical information: Yes Notes (Text): 08/22/17 10:03 Medical record note made by the resident after discussion with my direction and input after the patient was personally seen and examined by me. I have reviewed the chart and agree that the record accurately reflects by personal performance of the history, physical exam, data review, and medical decision-making, in the course for the patient. I have also personally directed the plan of care. In Summary 56 year old male with PMHx alcohol abuse, CAD , Paroxysmal A-fib ( not on anticoagulation due to noncompliance and alcohol abuse history), hypertension, hyperlipidemia, depression is admitted with H/O unresponsiveness, H/O recent alcohol ingestion, there is no focal deficit.Patient CT head is negative , he is found to have elevated Tylenol level , LFT are normal. Patient is on acetylcystine for Tylenol overdose, we will monitor LFT and Tylenol level. We will also watch for alcohol withdrawal. Management plan was discussed in detail with patient Education was provided.
[2017-08-21 18:10] LABS: OPIATES, UR NEGATIVE (NEGATIVE); PHENCYCLIDINE, UR NEGATIVE (NEGATIVE)
[2017-08-21] MEDS ORDERED: Pneumococcal 23-Valent Vaccine IM ONE (18:43)
[2017-08-21] MEDS ORDERED: Influenza Vaccine 60 mcg/0.5 mL SYR (4YR UP) IM ONE (18:43)
[2017-08-21 18:51] LABS: BARBITURATES, UR NEGATIVE (NEGATIVE); BENZODIAZEPINES, UR NEGATIVE (NEGATIVE)
--- NOTE | 2017-08-21 18:57 | CARD ---
APPROVED REPORT EKG Measurement Heart [id number] [place] [id number] <Conclusion> Normal sinus rhythm Prolonged QT Abnormal ECG
[2017-08-21] MEDS ORDERED: Acetylcysteine 7,260 MG in Dextrose 5% In Water 1,000 ML IVPB ONE (20:48)
[2017-08-22] MEDS: Pantoprazole 40 mg EC Tab PO SCH (06:21)
[2017-08-22 07:24] LABS: BASO # 0.04 K/mm3 (0.0-2.0); BASO % 0.6 % (0.0-3.0); EOS % 0.4 % (1.5-5.0); GRAN # 3.55 (1.4-6.5); GRAN % 52.3 % (50.0-68.0); HEMOGLOBIN 13.9 g/dL (14.0-18.0); LYMPH # 2.5 (1.2-3.4); LYMPH % 36.3 % (22.0-35.0); MEAN CELL VOLUME 93.4 fl (80.0-105.0); MEAN CORPUSCULAR HEMOGLOBIN 32.6 pg (25.0-35.0); MEAN CORPUSCULAR HGB CONC 34.8 g/dl (31.0-37.0); MEAN PLATELET VOLUME 10.5 fl (7.0-11.0); MONO # 0.7 (0.1-0.6); MONO % 10.4 % (1.0-6.0); RBC 4.27 10^6/uL (3.5-6.1); WHITE BLOOD COUNT 6.8 10^3/ul (4.5-11.0)
[2017-08-22 07:58] VITALS: RESP 20; O2SAT 96
[2017-08-22 08:52] LABS: ALB/GLOB RATIO 1.3 (1.1-1.8); ALBUMIN 4.3 g/dL (3.0-4.8); ALT/SGPT 58 U/L (7-56); AST/SGOT 67 U/L (17-59); BLOOD UREA NITROGEN 16 mg/dL (7-21); CALCIUM 9.2 mg/dL (8.4-10.5); GFR AFRICAN-AMERICAN > 60; GFR NON-AFRICAN AMERICAN > 60; MAGNESIUM 2.3 mg/dL (1.7-2.2)
[2017-08-22] MEDS ORDERED: Potassium Chloride 20 mEq ER Tab PO STA (09:02)
--- NOTE | 2017-08-22 09:34 | CP.PCM.PN ---
<Kristan Harmon - Last Filed: 08/22/17 09:30> Subjective - Date & Time of Evaluation Date of Evaluation: 08/22/17 Time of Evaluation: 09:31 - Subjective Subjective: Kristan Harmon, PGY1, Medicine Progress Note for Dr Shine: Patient seen and examined at bedside. Pt having tremors/diaphoresis at 2 am, given 2 mg Ativan. Pt's BP elevated overnight, resumed his home Diovan and Norvasc. This AM, pt states that he feels well, denies cp, palpitation, diaphoresis, confusion, lethargy, fever, chills, nausea, vomiting, abdominal pain. Objective - Vital Signs/Intake and Output Vital Signs (last 24 hours): Temp Pulse Resp BP Pulse Ox 98.3 F 83 20 162/101 H 96 08/22/17 07:58 08/22/17 07:58 08/22/17 07:58 08/22/17 07:58 08/22/17 07:58 Intake and Output: 08/22/17 08/22/17 06:59 18:59 Intake Total 240 Balance 240 - Medications Medications: Current Medications Amlodipine Besylate (Norvasc) 10 mg PO DAILY [facility] Atorvastatin Calcium (Lipitor) 20 mg PO DIN [facility] Last Admin: 08/21/17 17:25 Dose: 20 mg Folic Acid (Folic Acid) 1 mg PO DAILY [facility] Last Admin: 08/21/17 17:25 Dose: 1 mg Heparin Sodium (Porcine) (Heparin) 5,000 units SC Q8 [facility] PRN Reason: Protocol Last Admin: 08/22/17 06:21 Dose: 5,000 units Hydrochlorothiazide (Hydrodiuril) 25 mg PO DAILY [facility] Acetylcysteine 7,260 mg/ (Dextrose) 1,036.3 mls @ 62.5 mls/hr IVPB ONCE ONE Stop: 08/22/17 13:22 Last Admin: 08/21/17 22:30 Dose: 62.5 mls/hr Sodium Chloride (Sodium Chloride 0.9%) 100 mls @ 100 mls/hr IV .Q1H [facility] Last Admin: 08/21/17 17:25 Dose: 100 mls/hr Potassium Chloride (Potassium Chloride 20 Meq/100 Ml) 20 meq in 100 mls @ 50 mls/hr IVPB Q2H [facility] Stop: 08/22/17 13:14 Lorazepam (Ativan) 2 mg PO Q6H PRN; Protocol PRN Reason: Symptoms of alcohol withdrawl Last Admin: 08/22/17 01:37 Dose: 2 mg Metoprolol Tartrate (Lopressor) 50 mg PO BID [facility] Last Admin: 08/22/17 06:21 Dose: 50 mg Pantoprazole Sodium (Protonix Ec Tab) 40 mg PO 0600 [facility] Last Admin: 08/22/17 06:21 Dose: 40 mg Potassium Chloride (K-Dur 20 Meq Er Tab) 40 meq PO ONCE ONE Stop: 08/22/17 13:01 Sertraline HCl (Zoloft) 100 mg PO DAILY [facility] Thiamine HCl (Vitamin B1 Tab) 100 mg PO DAILY [facility] Last Admin: 08/21/17 18:59 Dose: 100 mg - Labs Labs: 08/22/17 07:00 08/22/17 07:00 APTT 26.6 Seconds (25.1-36.5) 08/22/17 05:00 - Constitutional Appears: Non-toxic, No Acute Distress - Head Exam Head Exam: ATRAUMATIC, NORMOCEPHALIC - Eye Exam Eye Exam: EOMI, PERRL. absent: Conjunctival injection, Nystagmus, Periorbital swelling, Scleral icterus Pupil Exam: NORMAL ACCOMODATION, PERRL - ENT Exam ENT Exam: Mucous Membranes Moist - Neck Exam Neck Exam: Full ROM, Normal Inspection - Respiratory Exam Respiratory Exam: Clear to Ausculation Bilateral, NORMAL BREATHING PATTERN. absent: Accessory Muscle Use, Decreased Breath Sounds, Rales, Rhonchi, Wheezes, Respiratory Distress - Cardiovascular Exam Cardiovascular Exam: RRR, +S1, +S2. absent: Murmur - GI/Abdominal Exam GI & Abdominal Exam: Soft, Normal Bowel Sounds. absent: Distended, Guarding, Rigid, Tenderness, Mass, Organomegaly, Rebound - Extremities Exam Extremities Exam: Normal Inspection. absent: Calf Tenderness, Pedal Edema - Back Exam Back Exam: NORMAL INSPECTION. absent: CVA tenderness (L), CVA tenderness (R) - Neurological Exam Neurological Exam: Alert, Awake, Oriented x3 - Psychiatric Exam Psychiatric exam: Normal Affect, Normal Mood - Skin Skin Exam: Dry, Normal Color, Warm Assessment and Plan - Assessment and Plan (Free Text) Assessment: 56 year old male with PMHx alcohol abuse, CADx1 stent, Paroxysmal A-fib (not on anticoagulation due to noncompliance and alcohol abuse history), hypertension, hyperlipidemia, depression, brought in by ambulance for alcohol intoxication, found to be have high tylenol levels. Pt started on IV NAC as per poison control. Pt doing well, tylenol levels trending down, mildly elevated LFTs and found to be hypokalemic today. Will obtain EKG, replete: 1. Acetaminophen Overdose Given loading dose NAC in the ED per poison control recommendations. Per poison control's recommendations, Acetylcysteine infusion 50 mg/kg over 4 hours followed by another infusion 100 mg/kg over 16 hours repeat acetaminophen level 10 this AM NS @ 100 Cont to monitor 2. Intoxication and history of alcohol abuse Serum alcohol elevated Head CT neg CIWA protocol Seizure/fall precautions Ativan 2 mg PO Q6H prn Thiamine 100 mg PO daily Folic acid 1 mg PO daily 3. History of Paroxysmal Atrial Fibrillation Rate control with home Lopressor 50 mg PO BID Not on home anticoagulation due to noncompliance and alcohol abuse history 4. History of Hypertension Continue Lopressor, Norvasc, Diovan with holding parameters. Hold HCTZ Maintain normotensive BP 5. History of Hyperlipidemia Continue home Lipitor 6. History of Depression Continue home Zoloft 7. Prophylaxis GI: Protonix DVT: Heparin Patient seen and discussed with Dr. Shine <Swathi Shine - Last Filed: 08/22/17 10:10> Objective - Vital Signs/Intake and Output Vital Signs (last 24 hours): Temp Pulse Resp BP Pulse Ox 98.3 F 83 20 162/101 H 96 08/22/17 07:58 08/22/17 07:58 08/22/17 07:58 08/22/17 09:23 08/22/17 07:58 Intake and Output: 08/22/17 08/22/17 06:59 18:59 Intake Total 240 Balance 240 - Medications Medications: Current Medications Amlodipine Besylate (Norvasc) 10 mg PO DAILY [facility] Last Admin: 08/22/17 09:23 Dose: 10 mg Atorvastatin Calcium (Lipitor) 20 mg PO DIN [facility] Last Admin: 08/21/17 17:25 Dose: 20 mg Folic Acid (Folic Acid) 1 mg PO DAILY [facility] Last Admin: 08/22/17 09:24 Dose: 1 mg Heparin Sodium (Porcine) (Heparin) 5,000 units SC Q8 [facility] PRN Reason: Protocol Last Admin: 08/22/17 06:21 Dose: 5,000 units Acetylcysteine 7,260 mg/ (Dextrose) 1,036.3 mls @ 62.5 mls/hr IVPB ONCE ONE Stop: 08/22/17 13:22 Last Admin: 08/21/17 22:30 Dose: 62.5 mls/hr Sodium Chloride (Sodium Chloride 0.9%) 100 mls @ 100 mls/hr IV .Q1H [facility] Last Admin: 08/21/17 17:25 Dose: 100 mls/hr Potassium Chloride (Potassium Chloride 20 Meq/100 Ml) 20 meq in 100 mls @ 50 mls/hr IVPB Q2H [facility] Stop: 08/22/17 13:14 Last Admin: 08/22/17 09:24 Dose: 50 mls/hr Lorazepam (Ativan) 2 mg PO Q6H PRN; Protocol PRN Reason: Symptoms of alcohol withdrawl Last Admin: 08/22/17 09:47 Dose: 2 mg Metoprolol Tartrate (Lopressor) 50 mg PO BID [facility] Last Admin: 08/22/17 06:21 Dose: 50 mg Pantoprazole Sodium (Protonix Ec Tab) 40 mg PO 0600 [facility] Last Admin: 08/22/17 06:21 Dose: 40 mg Potassium Chloride (K-Dur 20 Meq Er Tab) 40 meq PO ONCE ONE Stop: 08/22/17 13:01 Sertraline HCl (Zoloft) 100 mg PO DAILY [facility] Last Admin: 08/22/17 09:23 Dose: 100 mg Thiamine HCl (Vitamin B1 Tab) 100 mg PO DAILY [facility] Last Admin: 08/22/17 09:30 Dose: 100 mg Valsartan (Diovan) 320 mg PO DAILY [facility] - Labs Labs: 08/22/17 07:00 08/22/17 07:00 APTT 26.6 Seconds (25.1-36.5) 08/22/17 05:00 Attending/Attestation - Attestation I have personally seen and examined this patient.: Yes I have fully participated in the care of the patient.: Yes I have reviewed all pertinent clinical information, including history, physical exam and plan: Yes Notes (Text): 08/22/17 10:09 Medical record note made by the resident after discussion with my direction and input after the patient was personally seen and examined by me. I have reviewed the chart and agree that the record accurately reflects by personal performance of the history, physical exam, data review, and medical decision-making, in the course for the patient. I have also personally directed the plan of care. In Summary 56 year old male with PMHx alcohol abuse, CAD , Paroxysmal A-fib ( not on anticoagulation due to noncompliance and alcohol abuse history), hypertension, hyperlipidemia, depression is admitted with H/O unresponsiveness, H/O recent alcohol ingestion, there is no focal deficit.Patient CT head is negative , he is found to have elevated Tylenol level , LFT are normal. Patient LFT are stable, There is no sign of alcohol withdrawal at this time. Hypokalemia, replacement has been given, we will follow up electrolyte. Blood pressure medications has been adjusted. Management plan was discussed in detail with patient Education was provided.
[2017-08-22] MEDS ORDERED: Potassium Chloride 20 mEq ER Tab PO ONE (13:00)
--- NOTE | 2017-08-22 14:56 | CARD ---
APPROVED REPORT EKG Measurement Heart [id number] <Conclusion> Normal sinus rhythm Normal ECG
[2017-08-23] MEDS: Pantoprazole 40 mg EC Tab PO SCH (05:42)
[2017-08-23 06:21] LABS: BASO # 0.05 K/mm3 (0.0-2.0); EOS # 0.1 (0.0-0.7); EOS % 2.1 % (1.5-5.0); GRAN # 2.11 (1.4-6.5); GRAN % 44.2 % (50.0-68.0); HEMOGLOBIN 12.9 g/dL (14.0-18.0); LYMPH # 1.9 (1.2-3.4); LYMPH % 40.4 % (22.0-35.0); MEAN CELL VOLUME 94.2 fl (80.0-105.0); MEAN CORPUSCULAR HEMOGLOBIN 32.6 pg (25.0-35.0); MEAN CORPUSCULAR HGB CONC 34.6 g/dl (31.0-37.0); MEAN PLATELET VOLUME 10.6 fl (7.0-11.0); MONO # 0.6 (0.1-0.6); MONO % 12.3 % (1.0-6.0); RBC 3.96 10^6/uL (3.5-6.1); WHITE BLOOD COUNT 4.8 10^3/ul (4.5-11.0)
[2017-08-23 07:07] LABS: ALB/GLOB RATIO 1.2 (1.1-1.8); ALBUMIN 3.8 g/dL (3.0-4.8); ALT/SGPT 48 U/L (7-56); AST/SGOT 54 U/L (17-59); BLOOD UREA NITROGEN 12 mg/dL (7-21); GFR AFRICAN-AMERICAN > 60; GFR NON-AFRICAN AMERICAN > 60; MAGNESIUM 2.2 mg/dL (1.7-2.2)
[2017-08-23 08:25] VITALS: BP 148/98; PULSE 74; TEMP 98.1
--- NOTE | 2017-08-23 11:37 | CP.PCM.DIS ---
<RianaOtilia - Last Filed: 08/23/17 12:46> Provider - Provider Date of Admission: 08/21/17 15:33 Attending physician: Swathi Shine MD Primary care physician: Leigh Victor MD Time Spent in preparation of Discharge (in minutes): 35 Hospital Course - Lab Results Lab Results: Most Recent Lab Values WBC 4.8 10^3/ul (4.5-11.0) D 08/23/17 05:30 RBC 3.96 10^6/uL (3.5-6.1) 08/23/17 05:30 Hgb 12.9 g/dL (14.0-18.0) L 08/23/17 05:30 Hct 37.3 % (42.0-52.0) L 08/23/17 05:30 MCV 94.2 fl (80.0-105.0) 08/23/17 05:30 MCH 32.6 pg (25.0-35.0) 08/23/17 05:30 MCHC 34.6 g/dl (31.0-37.0) 08/23/17 05:30 RDW 13.0 % (11.5-14.5) 08/23/17 05:30 Plt Count 175 10^3/uL (120.0-450.0) 08/23/17 05:30 MPV 10.6 fl (7.0-11.0) 08/23/17 05:30 Gran % 44.2 % (50.0-68.0) L 08/23/17 05:30 Lymph % (Auto) 40.4 % (22.0-35.0) H 08/23/17 05:30 [place] % (Auto) 12.3 % (1.0-6.0) H 08/23/17 05:30 Eos % (Auto) 2.1 % (1.5-5.0) 08/23/17 05:30 Baso % (Auto) 1.0 % (0.0-3.0) 08/23/17 05:30 Gran # 2.11 (1.4-6.5) 08/23/17 05:30 Lymph # (Auto) 1.9 (1.2-3.4) 08/23/17 05:30 [place] # (Auto) 0.6 (0.1-0.6) 08/23/17 05:30 Eos # (Auto) 0.1 (0.0-0.7) 08/23/17 05:30 Baso # (Auto) 0.05 K/mm3 (0.0-2.0) 08/23/17 05:30 APTT 26.6 Seconds (25.1-36.5) 08/22/17 05:00 Sodium 140 mmol/L (132-148) 08/23/17 05:30 Potassium 3.6 mmol/L (3.6-5.0) 08/23/17 05:30 Chloride 104 mmol/L (98-107) 08/23/17 05:30 Carbon Dioxide 27 mmol/L (21-33) 08/23/17 05:30 Anion Gap 13 (10-20) 08/23/17 05:30 BUN 12 mg/dL (7-21) 08/23/17 05:30 Creatinine 0.7 mg/dl (0.8-1.5) L 08/23/17 05:30 Est GFR ( Amer) > 60 08/23/17 05:30 Est GFR (Non-Af Amer) > 60 08/23/17 05:30 Random Glucose 86 mg/dL (70-110) 08/23/17 05:30 Calcium 9.0 mg/dL (8.4-10.5) 08/23/17 05:30 Phosphorus 2.2 mg/dL (2.5-4.5) L 08/23/17 05:30 Magnesium 2.2 mg/dL (1.7-2.2) 08/23/17 05:30 Total Bilirubin 1.7 mg/dL (0.2-1.3) H 08/23/17 05:30 AST 54 U/L (17-59) 08/23/17 05:30 ALT 48 U/L (7-56) 08/23/17 05:30 Alkaline Phosphatase 59 U/L (38-126) 08/23/17 05:30 Total Creatine Kinase 394 U/L (35-230) H 08/21/17 15:07 CK-MB (CK-2) 2.5 ng/mL (0.0-3.6) 08/21/17 15:07 CK-MB (CK-2) % Cancelled 08/21/17 15:07 Total Protein 7.0 g/dL (5.8-8.3) 08/23/17 05:30 Albumin 3.8 g/dL (3.0-4.8) 08/23/17 05:30 Globulin 3.1 gm/dL 08/23/17 05:30 Albumin/Globulin Ratio 1.2 (1.1-1.8) 08/23/17 05:30 Urine Color Yellow (YELLOW) 08/21/17 17:08 Urine Appearance Clear (CLEAR) 08/21/17 17:08 Urine pH 6.0 (4.7-8.0) 08/21/17 17:08 Ur Specific [place] 1.020 (1.005-1.035) 08/21/17 17:08 Urine Protein Negative mg/dL (<30 mg/dL) 08/21/17 17:08 Urine Glucose (UA) Negative mg/dL (NEGATIVE) 08/21/17 17:08 Urine Ketones Negative mg/dL (NEGATIVE) 08/21/17 17:08 Urine Blood Negative (NEGATIVE) 08/21/17 17:08 Urine Nitrate Negative (NEGATIVE) 08/21/17 17:08 Urine Bilirubin Negative (NEGATIVE) 08/21/17 17:08 Urine Urobilinogen 0.2 E.U./dL (<1 E.U./dL) 08/21/17 17:08 Ur Leukocyte Esterase Negative Shahzad/uL (NEGATIVE) 08/21/17 17:08 Salicylates < 1 mg/dL (2.0-20.0) L 08/21/17 13:20 Urine Opiates Screen Negative (NEGATIVE) 08/21/17 17:08 Urine Methadone Screen Negative (NEGATIVE) 08/21/17 17:08 Acetaminophen < 10.0 ug/ml (10.0-20.0) L 08/22/17 07:00 Ur Barbiturates Screen Negative (NEGATIVE) 08/21/17 17:08 Ur Phencyclidine Scrn Negative (NEGATIVE) 08/21/17 17:08 Ur Amphetamines Screen Negative (NEGATIVE) 08/21/17 17:08 U Benzodiazepines Scrn Negative (NEGATIVE) 08/21/17 17:08 U Oth Cocaine Metabols Negative (NEGATIVE) 08/21/17 17:08 U Cannabinoids Screen Negative (NEGATIVE) 08/21/17 17:08 Alcohol, Quantitative 151 mg/dL (0-10) H 08/21/17 13:20 - Hospital Course Hospital Course: This is a 56 year old male with PMHx alcohol abuse, CAD with 1 stent, Paroxysmal A-fib (not on anticoagulation due to noncompliance and alcohol abuse history), hypertension, hyperlipidemia, depression who presented brought in by ambulance due to intoxication. Patient states that his neighbor found him and called an ambulance for him. Per patient, he has been experiencing palpitations and dry mouth since yesterday. Patient states that he took a lot of Aspirin for his palpitations because he thought that it would help him. He denies taking Acetaminophen/Tylenol. Patient has no other complaints at this time. Patient states that his palpitations have resolved in the emergency room. He denies fever, chills, headache, dizziness, tremors. Patient states that his last drink was two days ago on . Patient was placed on CIWA protocol, acetaminophen levels monitored. Patient was having tremors/diaphoresis at 2 am, given 2 mg Ativan. Social work was consulted. Pt's BP elevated overnight, resumed his home Diovan and Norvasc. Patient had hypokalemia, corrected, and was given ativan for tremors and signs of withrawal. Patient had no tremors 08/23. Patient discharged with thiamine and folic acid and advised to quit alcohol abuse. - Date & Time of H&P Date of H&P: 08/23/17 Time of H&P: 12:39 Discharge Exam - Head Exam Head Exam: ATRAUMATIC, NORMAL INSPECTION, NORMOCEPHALIC - Eye Exam Eye Exam: EOMI, Normal appearance Pupil Exam: NORMAL ACCOMODATION - ENT Exam ENT Exam: Mucous Membranes Moist - Neck Exam Neck exam: Full Rom - Respiratory Exam Respiratory Exam: Clear to PA & Lateral, NORMAL BREATHING PATTERN - Cardiovascular Exam Cardiovascular Exam: REGULAR RHYTHM, +S1, +S2 - GI/Abdominal Exam GI & Abdominal Exam: Normal Bowel Sounds, Soft. absent: Guarding, Tenderness, Unremarkable - Extremities Exam Extremities exam: full ROM, normal inspection - Back Exam Back exam: FULL ROM - Neurological Exam Neurological exam: Alert, CN II-XII Intact, Normal Gait, Oriented x3 - Psychiatric Exam Psychiatric exam: Normal Affect, Normal Mood - Skin Skin Exam: Dry, Intact, Normal Color, Warm Discharge Plan - Discharge Medications Prescriptions: Folic Acid 1 mg PO DAILY #14 tab Thiamine [Vitamin B1 Tab] 100 mg PO DAILY #14 tab - Follow Up Plan Condition: STABLE Disposition: HOME/ ROUTINE Instructions: Acetaminophen Poisoning (DC), Alcohol Abuse and Alcoholism (DC) Additional Instructions: take medications as directed consider alcohol cessation therapy Referrals: Leigh Hester MD [Primary Care Provider] - <Swathi Shine - Last Filed: 08/23/17 13:16> Provider - Provider Date of Admission: 08/21/17 15:33 Attending physician: Swathi Shine MD Primary care physician: Leigh Victor MD Hospital Course - Lab Results Lab Results: Most Recent Lab Values WBC 4.8 10^3/ul (4.5-11.0) D 08/23/17 05:30 RBC 3.96 10^6/uL (3.5-6.1) 08/23/17 05:30 Hgb 12.9 g/dL (14.0-18.0) L 08/23/17 05:30 Hct 37.3 % (42.0-52.0) L 08/23/17 05:30 MCV 94.2 fl (80.0-105.0) 08/23/17 05:30 MCH 32.6 pg (25.0-35.0) 08/23/17 05:30 MCHC 34.6 g/dl (31.0-37.0) 08/23/17 05:30 RDW 13.0 % (11.5-14.5) 08/23/17 05:30 Plt Count 175 10^3/uL (120.0-450.0) 08/23/17 05:30 MPV 10.6 fl (7.0-11.0) 08/23/17 05:30 Gran % 44.2 % (50.0-68.0) L 08/23/17 05:30 Lymph % (Auto) 40.4 % (22.0-35.0) H 08/23/17 05:30 [place] % (Auto) 12.3 % (1.0-6.0) H 08/23/17 05:30 Eos % (Auto) 2.1 % (1.5-5.0) 08/23/17 05:30 Baso % (Auto) 1.0 % (0.0-3.0) 08/23/17 05:30 Gran # 2.11 (1.4-6.5) 08/23/17 05:30 Lymph # (Auto) 1.9 (1.2-3.4) 08/23/17 05:30 [place] # (Auto) 0.6 (0.1-0.6) 08/23/17 05:30 Eos # (Auto) 0.1 (0.0-0.7) 08/23/17 05:30 Baso # (Auto) 0.05 K/mm3 (0.0-2.0) 08/23/17 05:30 APTT 26.6 Seconds (25.1-36.5) 08/22/17 05:00 Sodium 140 mmol/L (132-148) 08/23/17 05:30 Potassium 3.6 mmol/L (3.6-5.0) 08/23/17 05:30 Chloride 104 mmol/L (98-107) 08/23/17 05:30 Carbon Dioxide 27 mmol/L (21-33) 08/23/17 05:30 Anion Gap 13 (10-20) 08/23/17 05:30 BUN 12 mg/dL (7-21) 08/23/17 05:30 Creatinine 0.7 mg/dl (0.8-1.5) L 08/23/17 05:30 Est GFR ( Amer) > 60 08/23/17 05:30 Est GFR (Non-Af Amer) > 60 08/23/17 05:30 Random Glucose 86 mg/dL (70-110) 08/23/17 05:30 Calcium 9.0 mg/dL (8.4-10.5) 08/23/17 05:30 Phosphorus 2.2 mg/dL (2.5-4.5) L 08/23/17 05:30 Magnesium 2.2 mg/dL (1.7-2.2) 08/23/17 05:30 Total Bilirubin 1.7 mg/dL (0.2-1.3) H 08/23/17 05:30 AST 54 U/L (17-59) 08/23/17 05:30 ALT 48 U/L (7-56) 08/23/17 05:30 Alkaline Phosphatase 59 U/L (38-126) 08/23/17 05:30 Total Creatine Kinase 394 U/L (35-230) H 08/21/17 15:07 CK-MB (CK-2) 2.5 ng/mL (0.0-3.6) 08/21/17 15:07 CK-MB (CK-2) % Cancelled 08/21/17 15:07 Total Protein 7.0 g/dL (5.8-8.3) 08/23/17 05:30 Albumin 3.8 g/dL (3.0-4.8) 08/23/17 05:30 Globulin 3.1 gm/dL 08/23/17 05:30 Albumin/Globulin Ratio 1.2 (1.1-1.8) 08/23/17 05:30 Urine Color Yellow (YELLOW) 08/21/17 17:08 Urine Appearance Clear (CLEAR) 08/21/17 17:08 Urine pH 6.0 (4.7-8.0) 08/21/17 17:08 Ur Specific [place] 1.020 (1.005-1.035) 08/21/17 17:08 Urine Protein Negative mg/dL (<30 mg/dL) 08/21/17 17:08 Urine Glucose (UA) Negative mg/dL (NEGATIVE) 08/21/17 17:08 Urine Ketones Negative mg/dL (NEGATIVE) 08/21/17 17:08 Urine Blood Negative (NEGATIVE) 08/21/17 17:08 Urine Nitrate Negative (NEGATIVE) 08/21/17 17:08 Urine Bilirubin Negative (NEGATIVE) 08/21/17 17:08 Urine Urobilinogen 0.2 E.U./dL (<1 E.U./dL) 08/21/17 17:08 Ur Leukocyte Esterase Negative Shahzad/uL (NEGATIVE) 08/21/17 17:08 Salicylates < 1 mg/dL (2.0-20.0) L 08/21/17 13:20 Urine Opiates Screen Negative (NEGATIVE) 08/21/17 17:08 Urine Methadone Screen Negative (NEGATIVE) 08/21/17 17:08 Acetaminophen < 10.0 ug/ml (10.0-20.0) L 08/22/17 07:00 Ur Barbiturates Screen Negative (NEGATIVE) 08/21/17 17:08 Ur Phencyclidine Scrn Negative (NEGATIVE) 08/21/17 17:08 Ur Amphetamines Screen Negative (NEGATIVE) 08/21/17 17:08 U Benzodiazepines Scrn Negative (NEGATIVE) 08/21/17 17:08 U Oth Cocaine Metabols Negative (NEGATIVE) 08/21/17 17:08 U Cannabinoids Screen Negative (NEGATIVE) 08/21/17 17:08 Alcohol, Quantitative 151 mg/dL (0-10) H 08/21/17 13:20 Attending/Attestation - Attestation I have personally seen and examined this patient.: Yes I have fully participated in the care of the patient.: Yes I have reviewed all pertinent clinical information, including history, physical exam and plan: Yes Notes (Text): 08/23/17 13:14 Medical record note made by the resident after discussion with my direction and input after the patient was personally seen and examined by me. I have reviewed the chart and agree that the record accurately reflects by personal performance of the history, physical exam, data review, and medical decision-making, in the course for the patient. I have also personally directed the plan of care. In Summary 56 year old male with PMHx alcohol abuse, CAD , Paroxysmal A-fib ( not on anticoagulation due to noncompliance and alcohol abuse history), hypertension, hyperlipidemia, depression was admitted with H/O unresponsiveness , H/O recent alcohol ingestion, there is no focal deficit.Patient CT head is negative , he was found to have elevated Tylenol level , treated with acetylcystein.Patient LFT are stable, There is no sign of alcohol withdrawal at this time. Patient is ambulatory and is tolerating food.He will be discharged home. Issue of ongoing alcohol abuse was discussed in detail with him Management plan was discussed in detail with patient Education was provided.
== END 2017-08-23 14:51 | disposition home or self-care (01) | DRG 918 ==
LOC: ED 12:40 → ERH 15:33 → 3RNO 17:40
PROVIDERS: ADMIT Internal Medicine; ATTEND Internal Medicine
DX: T39.1X1A Poisoning by 4-Aminophenol derivatives, accidental (unintentional), initial encounter (principal); I48.0 Paroxysmal atrial fibrillation; F10.129 Alcohol abuse with intoxication, unspecified; E78.5 Hyperlipidemia, unspecified; Z91.19 Patient's noncompliance with other medical treatment and regimen; I25.10 Atherosclerotic heart disease of native coronary artery without angina pectoris; I10 Essential (primary) hypertension; F10.10 Alcohol abuse, uncomplicated; F32.9 Major depressive disorder, single episode, unspecified; Y90.6 Blood alcohol level of 120-199 mg/100 ml; F17.290 Nicotine dependence, other tobacco product, uncomplicated; E87.6 Hypokalemia; Z95.5 Presence of coronary angioplasty implant and graft

== ENCOUNTER 2017-10-18 12:54 | Inpatient (IN) | payer MEDICAID, OTHER ==
[2017-10-18 12:54] VITALS: BMI 25.0
--- NOTE | 2017-10-18 14:03 | ED PDOC ---
Arrival/HPI - General Chief Complaint: Shortness Of Breath Time Seen by Provider: 10/18/17 13:09 Historian: Patient - History of Present Illness Narrative History of Present Illness (Text): you were treated in the ED today for hx of hypertension, anemia, COPD, Atrial fibrilliation not on coumadin, drinks alcohol daily and has had 4 beers today/ yesterday and can drink upto 15 beers in a day, wants to stop drinking, now having generalized chest pain with difficulty breathing and has had thoughts to hang self/end life but states doesn't have thoughts now/homicidal thoughts/ hallucinations otherwise without any nausea/vomiting/headache/dizziness/abdomen pain/numbness/tingling/loss of limb function/pain with urination/travel/prior blood clots/prior cancer. Time/Duration: 24 hours Symptom Onset: Gradual Symptom Course: Unchanged, Intermittent Quality: Aching Severity Level: 1 Activities at Onset: Rest Context: Sitting Past Medical History - Provider Review Nursing Documentation Reviewed: Yes - Travel History Have you recently traveled outside [place] w/in the past 3 mons?: No - Infectious Disease Hx of Infectious Diseases: None - Tetanus Immunization Tetanus Immunization: Unknown - Cardiac Hx Cardiac Disorders: Yes (cad) Hx Hypertension: Yes - Pulmonary Hx Tuberculosis: No - Neurological HX Cerebrovascular Accident: No Hx Seizures: No - HEENT Hx HEENT Disorder: No - Renal Hx Renal Disorder: No - Endocrine/Metabolic Hx Endocrine Disorders: No - Hematological/Oncological Hx Cancer: No - Integumentary Hx Dermatological Disorder: No - Musculoskeletal/Rheumatological Hx Falls: Yes - Gastrointestinal Hx Gastrointestinal Disorders: No - Genitourinary/Gynecological Hx Sexually Transmitted Diseases: No - Psychiatric Hx Psychophysiologic Disorder: Yes Hx Depression: Yes Hx Substance Use: No - Past Surgical History Past Surgical History: No Previous - Surgical History Hx Cardiac Catheterization: Yes Hx Coronary Stent: Yes (X1) - Anesthesia Hx Anesthesia: Yes Hx Anesthesia Reactions: No Hx Malignant Hyperthermia: No - Suicidal Assessment Feels Threatened In Home Enviroment: No Family/Social History - Physician Review Nursing Documentation Reviewed: Yes Family/Social History: No Known Family HX Smoking Status: Light Smoker < 10 Cigarettes Daily Hx Alcohol Use: Yes Frequency of alcohol use: Daily Amount per day: 5 Hx Substance Use: No Hx Substance Use Treatment: No Allergies/Home Meds Allergies/Adverse Reactions: Allergies No Known Allergies Allergy (Verified 06/17/17 11:49) Review of Systems - Review of Systems Constitutional: Normal Eyes: Normal ENT: Normal Respiratory: SOB Cardiovascular: Chest Pain Gastrointestinal: Normal Genitourinary Male: Normal Musculoskeletal: Normal Skin: Normal Neurological: Normal Endocrine: Normal Hemo/Lymphatic: Normal Psychiatric: Anxiety, Suicidal Ideation Physical Exam Vital Signs Reviewed: Yes Vital Signs Temp Pulse Resp BP Pulse Ox 10/18/17 13:48 97.9 F 79 17 96/65 L 97 10/18/17 13:02 98 F 99 H 18 133/80 99 Temperature: Afebrile Blood Pressure: Normal Pulse: Regular Respiratory Rate: Normal Appearance: Positive for: Well-Appearing, Non-Toxic, Comfortable Pain Distress: None Mental Status: Positive for: Alert and Oriented X 3 - Systems Exam Head: Present: Atraumatic Pupils: Present: PERRL Extroacular Muscles: Present: EOMI Conjunctiva: Present: Normal Ears: Present: Normal Mouth: Present: Moist Mucous Membranes Pharnyx: Present: Normal Nose (External): Present: Atraumatic Nose (Internal): Present: Normal Inspection Neck: Present: Normal Range of Motion Respiratory/Chest: Present: Clear to Auscultation Cardiovascular: Present: Regular Rate and Rhythm Abdomen: No: Tenderness, Distention, Normal Bowel Sounds, Peritoneal Signs, Rebound, Guarding, McBurney's Point Tender, Rovsing's Sign Present, Hernias, Feeding Tubes, Ostomy Tubes, Mass/Organomegaly, Scars, Other Back: Present: Normal Inspection Upper Extremity: Present: Normal Inspection Lower Extremity: Present: Normal Inspection Neurological: Present: GCS=15, CN II-XII Intact, Speech Normal, Motor Func Grossly Intact Skin: Present: Warm, Normal Color Psychiatric: Present: Alert, Oriented x 3, Normal Insight, Normal Concentration , Anxious, Suicidal Ideation Medical Decision Making ED Course and Treatment: you were treated in the ED today for hx of hypertension, anemia, COPD, Atrial fibrilliation not on coumadin, drinks alcohol daily and has had 4 beers today/ yesterday and can drink upto 15 beers in a day, wants to stop drinking, now having generalized chest pain with difficulty breathing and has had thoughts to hang self/end life but states doesn't have thoughts now/homicidal thoughts/ hallucinations otherwise without any nausea/vomiting/headache/dizziness/abdomen pain/numbness/tingling/loss of limb function/pain with urination/travel/prior blood clots/prior cancer. You were otherwise breathing easily, talking easily, good strength/sensation, walking easily, clear lungs, no abdomen tenderness, mildly anxious, no fever temp 98, stable heart rate 99, stable breathing rate 18 , excellent oxygen level 99% room air, elevated blood pressure 133/80 which we recommend repeat in 2-3 days primary care office to determine further treatment , you have blood tests mild infection count 11.5, stable blood level hemoglobin 14.9/platelets 252, stable chemistry, elevated liver AST/ALT 299/270, magnesium mildly elevated 2.3, heart blood test negative less than 0.01, heart failure test negative 88, urine test____, urine drug test____, aspirin negative less than 1, tylenol negative less than 10, alcohol 397, radiology chest xray shows no acute findings, ECG sinus tachycardia, aspirin, librium, intraveneous fluids , observation done in the ED with improvement, counselled to stop drinking alcohol and due to anxiety/chest pain and wanting to stop drinking alcohol d/w with Dr. Flores and will admit. Report Date : 10/18/2017 14:33:07 Procedure: Chest xray Dictator : Horace Kong MD IMPRESSION: No active disease. No significant interval change compared to the prior examination(s). 10/18/17 15:38 10/18/17 16:00 Reassessment Condition: Re-examined, Improved - Lab Interpretations Lab Results: 10/18/17 13:00 10/18/17 13:00 Lab Results 10/18/17 13:00: Alcohol, Quantitative 397 H* 10/18/17 13:00: Salicylates < 1 L, Acetaminophen < 10.0 L 10/18/17 13:00: Sodium 141, Potassium 4.0, Chloride 101, Carbon Dioxide 19 L, Anion Gap 24 H, BUN 18, Creatinine 0.9, Est GFR ( Amer) > 60, Est GFR ( Non-Af Amer) > 60, Random Glucose 95, Calcium 8.3 L, Magnesium 2.3 H, Total Bilirubin 0.7, AST 299 H D, ALT 270 H, Alkaline Phosphatase 85, Lactate Dehydrogenase 1608 H, Total Creatine Kinase 889 H, CK-MB (CK-2) 4.2 H, CK-MB (CK -2) % Cancelled, Troponin I < 0.01, NT-Pro-B Natriuret Pep 88.4, Total Protein 8.4 H, Albumin 5.0 H, Globulin 3.5, Albumin/Globulin Ratio 1.4 10/18/17 13:00: PT 11.4, INR 1.00, APTT 26.8 10/18/17 13:00: WBC 11.5 H D, RBC 4.63, Hgb 14.9 D, Hct 41.1 L, MCV 88.8 D, MCH 32.2, MCHC 36.3, RDW 12.7, Plt Count 252, MPV 10.4, Gran % 68.2 H, Lymph % ( Auto) 25.0, [place] % (Auto) 6.4 H, Eos % (Auto) 0.0 L, Baso % (Auto) 0.4, Gran # 7.84 H, Lymph # (Auto) 2.9, [place] # (Auto) 0.7 H, Eos # (Auto) 0.0, Baso # (Auto ) 0.05 I have reviewed the lab results: Yes - RAD Interpretation Radiology Orders: 10/18/17 13:53 CHEST PORTABLE [RAD] Stat Palliative Care Nurse Practitioner: Radiologist - EKG Interpretation Interpreted by ED Physician: Yes (sinus tachycardia) Type: 12 lead EKG - Medication Orders Current Medication Orders: Discontinued Medications Aspirin (Aspirin) 325 mg PO STAT STA Stop: 10/18/17 13:53 Last Admin: 10/18/17 14:48 Dose: 325 mg Chlordiazepoxide (Librium) 50 mg PO STAT STA PRN Reason: Protocol Stop: 10/18/17 14:06 Last Admin: 10/18/17 14:48 Dose: 50 mg Sodium Chloride (Sodium Chloride 0.9%) 1,000 mls @ 999 mls/hr IV .Q1H1M STA Stop: 10/18/17 15:05 Last Admin: 10/18/17 14:20 Dose: 999 mls/hr eMAR Start Stop Document 10/18/17 14:20 MEGHANA (Rec: 10/18/17 14:48 MEGHANA [id number]) Intravenous Solution Start Date 10/18/17 Start Time 14:20 End Date 10/18/17 End time 15:20 Total Infusion Time 60 Disposition/Present on Arrival - Present on Arrival Any Indicators Present on Arrival: No History of DVT/PE: No History of Uncontrolled Diabetes: No Urinary Catheter: No History of Decub. Ulcer: No History Surgical Site Infection Following: None - Disposition Have Diagnosis and Disposition been Completed?: Yes Diagnosis: Depressive disorder, Alcohol abuse Disposition: HOSPITALIZED Disposition Time: 16:01 Patient Plan: Admission Condition: IMPROVED Referrals: Leigh Hester MD [Primary Care Provider] - Follow up with primary Forms: [employer] (Khmer)
[2017-10-18] MEDS ORDERED: Sodium Chloride 0.9% 1,000 ML IV STA (14:05)
--- NOTE | 2017-10-18 14:34 | RAD ---
HISTORY: Chest pain COMPARISON: 08/21/2017 FINDINGS: LUNGS: No active pulmonary disease. PLEURA: No significant pleural effusion identified, no pneumothorax apparent. CARDIOVASCULAR: No radiographic findings to suggest acute or significant cardiovascular disease. OSSEOUS STRUCTURES: No significant abnormalities. VISUALIZED UPPER ABDOMEN: Normal. OTHER FINDINGS: None. IMPRESSION: No active disease. No significant interval change compared to the prior examination(s).
[2017-10-18 14:52] LABS: BASO # 0.05 K/mm3 (0.0-2.0); BASO % 0.4 % (0.0-3.0); GRAN # 7.84 (1.4-6.5); GRAN % 68.2 % (50.0-68.0); HEMOGLOBIN 14.9 g/dL (14.0-18.0); LYMPH # 2.9 (1.2-3.4); MEAN CELL VOLUME 88.8 fl (80.0-105.0); MEAN CORPUSCULAR HEMOGLOBIN 32.2 pg (25.0-35.0); MEAN CORPUSCULAR HGB CONC 36.3 g/dl (31.0-37.0); MEAN PLATELET VOLUME 10.4 fl (7.0-11.0); MONO # 0.7 (0.1-0.6); MONO % 6.4 % (1.0-6.0); RBC 4.63 10^6/uL (3.5-6.1); RED CELL DISTRIBUTION WIDTH 12.7 % (11.5-14.5); WHITE BLOOD COUNT 11.5 10^3/ul (4.5-11.0)
[2017-10-18 15:03] LABS: ALB/GLOB RATIO 1.4 (1.1-1.8); ALT/SGPT 270 U/L (7-56); AST/SGOT 299 U/L (17-59); BLOOD UREA NITROGEN 18 mg/dL (7-21); CALCIUM 8.3 mg/dL (8.4-10.5); GFR AFRICAN-AMERICAN > 60; GFR NON-AFRICAN AMERICAN > 60
[2017-10-18 15:04] LABS: ACETAMINOPHEN < 10.0 ug/ml (10.0-20.0); PARTIAL THROMBOPLASTIN TIME 26.8 Seconds (25.1-36.5); PROTHROMBIN TIME 11.4 SECONDS (9.4-12.5); SALICYLATE < 1 mg/dL (2.0-20.0)
[2017-10-18 15:14] LABS: TROPONIN I < 0.01 ng/mL
[2017-10-18 15:29] LABS: B-TYPE NATRIURETIC PEPTIDE 88.4 pg/mL (0-450); CK-MB 4.2 ng/mL (0.0-3.6)
[2017-10-18 16:10] LABS: URINE BILIRUBIN NEGATIVE (NEGATIVE); URINE BLOOD TRACE-LYSED (NEGATIVE); URINE GLUCOSE (UA) NEGATIVE (NEGATIVE); URINE LEUKOCYTE ESTERASE NEGATIVE Leu/uL (NEGATIVE); URINE PROTEIN NEGATIVE mg/dL (<30 mg/dL); URINE UROBILINOGEN 0.2 E.U./dL (<1 E.U./dL)
[2017-10-18 16:11] LABS: URINE APPEARANCE CLEAR (CLEAR); URINE COLOR YELLOW (YELLOW)
[2017-10-18 16:14] LABS: URINE BACTERIA FEW (NEG); URINE WBC 0 - 2 /hpf (0-6)
--- NOTE | 2017-10-18 16:18 | CP.PCM.HP ---
<Lissy Bolivar - Last Filed: 10/18/17 17:51> History of Present Illness - History of Present Illness History of Present Illness: CC: "I need help" HPI: Patient is a 56 year old male with past medical history of CAD (1 stent), Alcohol abuse, Depression, HLD, Paroxysmal afib (not on AC 2/2 non-compliance and fall risk), HTN presented to [facility] because he needs help. Patient states that has been drinking multiple beers daily for the past week and wants to stop. He states that he drinks anywhere from 12-15 beers a day. His last drink was today prior to arrival and he drank 4 beers. Denies any prior rehab or detox. Patient states that he is depressed and feels like he cant help himself. He wants to stop drinking and plans on attending AA meetings after discharge. At this time patient denies suicidal/homicidal ideation. Patient was admitted in the past for Tylenol overdose and has multiple admissions for alcohol. Denies any recent Tylenol use. He admits to feeling generalized body aches and calf pain. States that he vomited once this morning. Denies headaches, dizziness, cp, palpitations , sob, abdominal pain, urinary symptoms, changes in bowel habits. ED course: Librium 50mg PO, ASA 325mg PO, NS bolus x 1 Pharmacy: [facility] in [place] Allergies: NKDA Medications: HCTZ 25mg PO daily, Diovan 320mg PO daily, Metoprolol 50mg BID, Lipitor 20mg PO daily, ASA 81mg PO daily Medical History: CAD (1 stent), Alcohol abuse, Depression, HLD, Paroxysmal afib (not on AC 2/2 non-compliance and fall risk), HTN Surgical History: Denies Social History: Smokes e cigarettes, former cigarette smoker (quit 6 years ago) , drinks 12-15 beers daily, denies drug use; has a [facility] [facility] Family History: Denies Present on Admission - Present on Admission Any Indicators Present on Admission: No Past Patient History - Infectious Disease Hx of Infectious Diseases: None - Tetanus Immunizations Tetanus Immunization: Unknown - Past Social History Smoking Status: Light Smoker < 10 Cigarettes Daily - CARDIAC Hx Cardiac Disorders: Yes (cad) Hx Hypertension: Yes - PULMONARY Hx Tuberculosis: No - NEUROLOGICAL HX Cerebrovascular Accident: No Hx Seizures: No - HEENT Hx HEENT Problems: No - RENAL Hx Chronic Kidney Disease: No - ENDOCRINE/METABOLIC Hx Endocrine Disorders: No - HEMATOLOGICAL/ONCOLOGICAL Hx Cancer: No - INTEGUMENTARY Hx Dermatological Problems: No - MUSCULOSKELETAL/RHEUMATOLOGICAL Hx Falls: Yes - GASTROINTESTINAL Hx Gastrointestinal Disorders: No - GENITOURINARY/GYNECOLOGICAL Hx Sexually Transmitted Disorders: No - PSYCHIATRIC Hx Psychophysiologic Disorder: Yes Hx Depression: Yes Hx Substance Use: No - SURGICAL HISTORY Hx Cardiac Catheterization: Yes Hx Coronary Stent: Yes (X1) - ANESTHESIA Hx Anesthesia: Yes Hx Anesthesia Reactions: No Hx Malignant Hyperthermia: No Meds Allergies/Adverse Reactions: Allergies Allergy/AdvReac Type Severity Reaction Status Date / Time No Known Allergies Allergy Verified 06/17/17 11:49 Physical Exam - Constitutional Appears: No Acute Distress, Unkempt, Older Than Stated Age - Head Exam Head Exam: ATRAUMATIC, NORMAL INSPECTION, NORMOCEPHALIC - Eye Exam Eye Exam: EOMI, Normal appearance Pupil Exam: NORMAL ACCOMODATION - ENT Exam ENT Exam: Mucous Membranes Dry - Respiratory Exam Respiratory Exam: Clear to Auscultation Bilateral, NORMAL BREATHING PATTERN. absent: Rales, Rhonchi, Wheezes - Cardiovascular Exam Cardiovascular Exam: REGULAR RHYTHM, +S1, +S2 - GI/Abdominal Exam GI & Abdominal Exam: Normal Bowel Sounds, Soft. absent: Guarding, Rebound, Rigid, Tenderness - Extremities Exam Extremities exam: Positive for: calf tenderness, normal inspection, pedal pulses present - Back Exam Back exam: NORMAL INSPECTION - Neurological Exam Neurological exam: Alert, Oriented x3 - Psychiatric Exam Psychiatric exam: Normal Affect, Normal Mood - Skin Skin Exam: Dry, Normal Color, Warm Results - Vital Signs Recent Vital Signs: Last Vital Signs Temp 97.9 F 10/18/17 13:48 Pulse 79 10/18/17 13:48 Resp 17 10/18/17 13:48 BP 96/65 L 10/18/17 13:48 Pulse Ox 97 10/18/17 13:48 - Labs Result Diagrams: 10/18/17 13:00 10/18/17 13:00 Labs: Laboratory Results - last 24 hr 10/18/17 10/18/17 10/18/17 13:00 13:00 13:00 WBC 11.5 H D RBC 4.63 Hgb 14.9 D Hct 41.1 L MCV 88.8 D MCH 32.2 MCHC 36.3 RDW 12.7 Plt Count 252 MPV 10.4 Gran % 68.2 H Lymph % (Auto) 25.0 Traill % (Auto) 6.4 H Eos % (Auto) 0.0 L Baso % (Auto) 0.4 Gran # 7.84 H Lymph # (Auto) 2.9 Traill # (Auto) 0.7 H Eos # (Auto) 0.0 Baso # (Auto) 0.05 PT 11.4 INR 1.00 APTT 26.8 Sodium 141 Potassium 4.0 Chloride 101 Carbon Dioxide 19 L Anion Gap 24 H BUN 18 Creatinine 0.9 Est GFR ( Amer) > 60 Est GFR (Non-Af Amer) > 60 Random Glucose 95 Calcium 8.3 L Magnesium 2.3 H Total Bilirubin 0.7 AST 299 H D ALT 270 H Alkaline Phosphatase 85 Lactate Dehydrogenase 1608 H Total Creatine Kinase 889 H CK-MB (CK-2) 4.2 H CK-MB (CK-2) % Cancelled Troponin I < 0.01 NT-Pro-B Natriuret Pep 88.4 Total Protein 8.4 H Albumin 5.0 H Globulin 3.5 Albumin/Globulin Ratio 1.4 Urine Color Urine Appearance Urine pH Ur Specific [place] Urine Protein Urine Glucose (UA) Urine Ketones Urine Blood Urine Nitrate Urine Bilirubin Urine Urobilinogen Ur Leukocyte Esterase Urine RBC Urine WBC Ur Epithelial Cells Urine Bacteria Salicylates Acetaminophen Alcohol, Quantitative 10/18/17 10/18/17 10/18/17 13:00 13:00 16:00 WBC RBC Hgb Hct MCV MCH MCHC RDW Plt Count MPV Gran % Lymph % (Auto) [place] % (Auto) Eos % (Auto) Baso % (Auto) Gran # Lymph # (Auto) [place] # (Auto) Eos # (Auto) Baso # (Auto) PT INR APTT Sodium Potassium Chloride Carbon Dioxide Anion Gap BUN Creatinine Est GFR ( Amer) Est GFR (Non-Af Amer) Random Glucose Calcium Magnesium Total Bilirubin AST ALT Alkaline Phosphatase Lactate Dehydrogenase Total Creatine Kinase CK-MB (CK-2) CK-MB (CK-2) % Troponin I NT-Pro-B Natriuret Pep Total Protein Albumin Globulin Albumin/Globulin Ratio Urine Color Yellow Urine Appearance Clear Urine pH 6.0 Ur Specific [place] <= 1.005 Urine Protein Negative Urine Glucose (UA) Negative Urine Ketones Negative Urine Blood Trace-lysed H Urine Nitrate Negative Urine Bilirubin Negative Urine Urobilinogen 0.2 Ur Leukocyte Esterase Negative Urine RBC 1 - 3 Urine WBC 0 - 2 Ur Epithelial Cells None Urine Bacteria Few Salicylates < 1 L Acetaminophen < 10.0 L Alcohol, Quantitative 397 H* Assessment & Plan - Assessment and Plan (Free Text) Assessment: Patient is a 56 year old male with past medical history of CAD (1 stent), Alcohol abuse, Depression, HLD, Paroxysmal afib (not on AC 2/2 non-compliance and fall risk), HTN presents to [facility] with acute alcohol intoxication and depression. Acute Alcohol Intoxication/Alcohol abuse -Stable, afebrile -Will monitor on telemetry -Alcohol 397 on admission -Ativan 1mg Q6H, Ativan 2mg Q2H prn anxiety -Banana bag x 1 bolus -Zofran prn nausea -UTOX negative -Monitor for signs and symptoms of withdrawal -CIWA protocol -Aspiration precautions, seizure precautions History of Depression/History of suicidal ideation -Patient states that he is depressed and needs help -Will continue home dose of Zoloft 100mg PO daily -At this time denies suicidal/homicidal ideation -Psych on consult, help appreciated Elevated Liver Enzymes -AST/ALT 299/270 -History of positive Hepatitis A ab -Will recheck Hepatitis panel -Abdominal US ordered -Avoid Hepatotoxic medications (Lipitor on hold) -Continue to monitor Anion gap metabolic acidosis -Anion 21 on admission -Likely secondary to alcohol -Continue IV fluids -Continue to monitor gap History of Paraoxysmal Afib -Not on anticoagulation -Metoprolol 50mg PO BID with hold parameters -EKG in ED showing sinus tachy 102, possible left atrial enlargement HLD -Will hold Lipitor at this time CAD -Troponin negative x 1 -Continue ASA 81mg PO daily Leukocytosis -CXR showing no active disease -UA trace blood -WBC 11.5 on admission -F/U rapid flu, pro calcitonin History of Hypertension -Home medications: HTCZ, Metoprolol, Norvasc, Diovan -BP in ED low, 96/65 -Can restart home medications as needed Elevated CPK -IV fluid hydration -CPK 889 -Continue to monitor Bilateral lower extremity pain -Lower extremity duplex ordered GI ppx: Protonix 40mg PO daily DVT: Lovenox 40mg SC Plan discussed with Dr Mike Yeung <Mike Yeung - Last Filed: 10/19/17 18:48> Results - Vital Signs Recent Vital Signs: Last Vital Signs Temp 98.1 F 10/19/17 12:00 Pulse 72 10/19/17 12:00 Resp 20 10/19/17 12:00 BP 180/90 H 10/19/17 13:54 Pulse Ox 96 10/19/17 06:00 - Labs Result Diagrams: 10/19/17 06:30 10/19/17 06:30 Labs: Laboratory Results - last 24 hr 10/18/17 10/18/17 10/18/17 18:37 18:37 18:37 WBC RBC Hgb Hct MCV MCH MCHC RDW Plt Count MPV Gran % Lymph % (Auto) [place] % (Auto) Eos % (Auto) Baso % (Auto) Gran # Lymph # (Auto) [place] # (Auto) Eos # (Auto) Baso # (Auto) Sodium Potassium Chloride Carbon Dioxide Anion Gap BUN Creatinine Est GFR ( Amer) Est GFR (Non-Af Amer) Random Glucose Calcium Phosphorus 3.9 Magnesium Total Bilirubin AST ALT Alkaline Phosphatase Total Protein Albumin Globulin Albumin/Globulin Ratio Free T4 0.95 TSH 3rd Generation 0.49 Hepatitis A IgM Ab Negative Hep Bs Antigen Negative Hep B Core IgM Ab Negative Hepatitis C Antibody Negative 10/19/17 10/19/17 06:30 06:30 WBC 7.4 D RBC 4.31 Hgb 13.6 L Hct 39.2 L MCV 91.0 MCH 31.6 MCHC 34.7 RDW 12.8 Plt Count 176 MPV 10.4 Gran % 71.0 H Lymph % (Auto) 20.9 L [place] % (Auto) 7.4 H Eos % (Auto) 0.0 L Baso % (Auto) 0.7 Gran # 5.28 Lymph # (Auto) 1.6 [place]ill # (Auto) 0.6 Eos # (Auto) 0.0 Baso # (Auto) 0.05 Sodium 144 Potassium 3.6 Chloride 108 H Carbon Dioxide 20 L Anion Gap 20 BUN 17 Creatinine 0.8 Est GFR ( Amer) > 60 Est GFR (Non-Af Amer) > 60 Random Glucose 62 L Calcium 7.9 L Phosphorus 2.9 Magnesium 2.1 Total Bilirubin 1.6 H AST 251 H ALT 247 H Alkaline Phosphatase 72 Total Protein 7.0 Albumin 4.1 Globulin 2.9 Albumin/Globulin Ratio 1.4 Free T4 TSH 3rd Generation Hepatitis A IgM Ab Hep Bs Antigen Hep B Core IgM Ab Hepatitis C Antibody Attending/Attestation - Attestation I have personally seen and examined this patient.: Yes I have fully participated in the care of the patient.: Yes I have reviewed all pertinent clinical information: Yes Notes (Text): I have seen and examined the patient at bedside. Agree with the above note with the following additions/ exceptions: Briefly this is 56 year old male with history of CAD s/p stent, alcohol abuse, depression, dyslipidemia, PAF not on anticoagulation due to non compliance and fall risk, HTN who was admitted for alcohol intoxication and worsening of depression. Will start CIWA protocol, banana bag and ativan. Will consult psych. Fall risk. Patient denies homicidal or suicidal ideation. Will order hep panel and liver ultrasound for transaminitis. Upon discharge patient will follow up with Dr Gomez.
[2017-10-18 16:32] LABS: BARBITURATES, UR NEGATIVE (NEGATIVE); BENZODIAZEPINES, UR NEGATIVE (NEGATIVE); OPIATES, UR NEGATIVE (NEGATIVE); PHENCYCLIDINE, UR NEGATIVE (NEGATIVE)
[2017-10-18] MEDS ORDERED: Multivitamin (MVI) 10 ML, Thiamine 100 MG, Folic Acid 1 MG in Sodium Chloride 0.9% 1,00... IV ONE ×2 (17:09)
[2017-10-18 19:34] LABS: FREE T4 0.95 ng/dL (0.78-2.19)
--- NOTE | 2017-10-18 20:37 | CP.PCM.PN ---
Subjective - Date & Time of Evaluation Date of Evaluation: 10/18/17 Time of Evaluation: 20:20 - Subjective Subjective: CODE STAR NOTE. 56 year old male with past medical history of CAD (1 stent), Alcohol abuse, Depression, HLD, Paroxysmal afib (not on AC 2/2 non-compliance and fall risk), admitted for evaluation and treatment of depression and EtOH abuse/withdrawal. Code Star called at 20:18. Arrival was at 20:20. Patient found on the floor next the the bed. Per nurse, that is how patient was found. Patient states he had a mechanical fall when he attempted to go to the bathroom. He denies any loss of consciousness, biting of the tongue, or urinary/bowel incontinence. Patient does admit to to hitting his head. Objective - Vital Signs/Intake and Output Vital Signs (last 24 hours): Temp Pulse Resp BP Pulse Ox 98 F 100 H 18 144/90 97 10/18/17 17:50 10/18/17 19:39 10/18/17 19:39 10/18/17 19:39 10/18/17 19:39 - Medications Medications: Current Medications Aspirin (Ecotrin) 81 mg PO DAILY [facility] Enoxaparin Sodium (Lovenox) 40 mg SC DAILY [facility] PRN Reason: Protocol Multivitamins/Vitamin C 10 ml/Thiamine HCl 100 mg/ Folic Acid 1 mg/ Sodium Chloride 1,011.2 mls @ 125 mls/hr IV .Q8H6M ONE Stop: 10/19/17 01:14 Lorazepam (Ativan) 1 mg IVP Q6H [facility] PRN Reason: Protocol Last Admin: 10/18/17 18:02 Dose: 1 mg Lorazepam (Ativan) 2 mg IVP Q2H PRN; Protocol PRN Reason: Anxiety Last Admin: 10/18/17 19:26 Dose: 2 mg Metoprolol Tartrate (Lopressor) 50 mg PO BID [facility] Last Admin: 10/18/17 19:39 Dose: 50 mg Ondansetron HCl (Zofran Inj) 4 mg IVP Q6H PRN PRN Reason: Nausea/Vomiting Pantoprazole Sodium (Protonix Inj) 40 mg IVP DAILY [facility] Sertraline HCl (Zoloft) 100 mg PO DAILY [facility] Last Admin: 10/18/17 18:02 Dose: 100 mg - Labs Labs: PT 11.4 SECONDS (9.4-12.5) 10/18/17 13:00 INR 1.00 (0.93-1.08) 10/18/17 13:00 APTT 26.8 Seconds (25.1-36.5) 10/18/17 13:00 - Constitutional Appears: No Acute Distress, Unkempt - Head Exam Head Exam: ATRAUMATIC, NORMAL INSPECTION, NORMOCEPHALIC Additional comments: No tenderness to palpation. - Respiratory Exam Respiratory Exam: Clear to Ausculation Bilateral, NORMAL BREATHING PATTERN - Cardiovascular Exam Cardiovascular Exam: +S1, +S2 - Extremities Exam Extremities Exam: Normal Capillary Refill, Normal Inspection - Neurological Exam Neurological Exam: Abnormal Gait (unsteady gait. ), Alert, Awake, Oriented x3. absent: Motor Sensory Deficit Neuro motor strength exam: Left Upper Extremity: 5, Right Upper Extremity: 5, Left Lower Extremity: 5, Right Lower Extremity: 5 - Psychiatric Exam Psychiatric exam: Depressed Additional comments: Restricted Affect - Skin Additional comments: Abrasion on left shoulder. Assessment and Plan - Assessment and Plan (Free Text) Assessment: 56 year old male with past medical history of CAD (1 stent), Alcohol abuse, Depression, HLD, Paroxysmal afib (not on AC 2/2 non-compliance and fall risk), HTN admitted for depression and EtOH abuse/Withdrawal. Plan: Head CT to rule out bleed.
--- NOTE | 2017-10-18 21:58 | CT ---
EXAM: CT Head Without Intravenous Contrast EXAM DATE/TIME: 10/18/2017 8:34 PM CLINICAL HISTORY: The patient age is 56 years old and is male; Pain; Other: R/O bleed Facility exam id and description: Ct heads head w/o contrast TECHNIQUE: Axial computed tomography images of the head/brain without intravenous contrast. All CT scans at this facility use one or more dose reduction techniques, viz.: automated exposure control; ma/kV adjustment per patient size (including targeted exams where dose is matched to indication; i.e. head); or iterative reconstruction technique. Coronal and sagittal reformatted images were created and reviewed. COMPARISON: CT - HEAD W/O CONTRAST 2017-08-21 17:15 FINDINGS: Brain: Motion artifact limits evaluation for hemorrhage or infarct at the base of the head and posterior fossa. Aside from the areas of artifact, no acute intracranial hemorrhage is seen. There are periventricular foci of hypodensity, suggestive of small vessel ischemic disease in a patient this age. The acuity of the white matter disease is indeterminate. The white-deleon differentiation is otherwise preserved demonstrating no acute territorial type infarct. Midline shift: There is no midline shift. Ventricles: No ventriculomegaly. Bones/joints: The calvarium demonstrates no evidence for a depressed fracture. Soft tissues: No acute abnormality. Vasculature: There is atherosclerotic calcification of the intracranial internal carotid arteries and distal right vertebral artery. Sinuses: There is mild polypoid mucosal thickening of the maxillary sinuses. Minimal mucosal thickening is visualized of the bilateral frontal sinuses. Mastoid air cells: No mastoid effusion. IMPRESSION: 1. Motion artifact limits evaluation for hemorrhage or infarct at the base of the head and posterior fossa. A repeat head CT is recommended. 2. There are periventricular foci of hypodensity, suggestive of small vessel ischemic disease in a patient this age. 3. Paranasal sinus disease is noted above.
--- NOTE | 2017-10-19 03:55 | US ---
EXAM: US Abdomen Complete EXAM DATE/TIME: 10/18/2017 5:10 PM CLINICAL HISTORY: The patient age is 56 years old and is male; Abnormal findings; Abnormal lab test; Elevated liver enzymes; Additional info: Elevated lfts Facility exam id and description: Us abd abdomen complete TECHNIQUE: Real-time ultrasound of the abdomen (complete) with image documentation. COMPARISON: US - ABDOMEN COMPLETE 2012-02-11 14:17 FINDINGS: Liver: The liver measures 14.9 x 13.1 cm. There is mild heterogeneous echogenicity of the liver. Gallbladder: Mild hypoechoic sludge is seen within the gallbladder. There is no significant gallbladder wall thickening. A cleft is visualized within the gallbladder. No shadowing gallstones are seen. Common bile duct: The common bile duct measures 0.4 cm, which is within normal limits. Pancreas: Suboptimal evaluation due to bowel gas. Kidneys: The right kidney measures 10.2 x 4.8 x 6.2 cm. The left kidney measures 11.8 x 6.5 x 7.0 cm. No shadowing stones. No hydronephrosis. Spleen: The spleen measures 11.8 x 6.5 x 7.0 cm. The spleen is normal in echotexture. Aorta: There is suboptimal evaluation of the abdominal aorta. Inferior vena cava: The visualized segment of the IVC is patent. IMPRESSION: 1. Mild hypoechoic sludge is seen within the gallbladder. No sonographic evidence of acute cholecystitis. 2. There is mild nonspecific heterogeneous echogenicity of the liver. 3. Additional findings described above.
[2017-10-19 07:19] LABS: BASO # 0.05 K/mm3 (0.0-2.0); BASO % 0.7 % (0.0-3.0); GRAN # 5.28 (1.4-6.5); HEMOGLOBIN 13.6 g/dL (14.0-18.0); LYMPH # 1.6 (1.2-3.4); LYMPH % 20.9 % (22.0-35.0); MEAN CORPUSCULAR HEMOGLOBIN 31.6 pg (25.0-35.0); MEAN CORPUSCULAR HGB CONC 34.7 g/dl (31.0-37.0); MEAN PLATELET VOLUME 10.4 fl (7.0-11.0); MONO # 0.6 (0.1-0.6); MONO % 7.4 % (1.0-6.0); RBC 4.31 10^6/uL (3.5-6.1); RED CELL DISTRIBUTION WIDTH 12.8 % (11.5-14.5); WHITE BLOOD COUNT 7.4 10^3/ul (4.5-11.0)
[2017-10-19 07:41] LABS: ALB/GLOB RATIO 1.4 (1.1-1.8); ALBUMIN 4.1 g/dL (3.0-4.8); ALT/SGPT 247 U/L (7-56); AST/SGOT 251 U/L (17-59); BLOOD UREA NITROGEN 17 mg/dL (7-21); CALCIUM 7.9 mg/dL (8.4-10.5); GFR AFRICAN-AMERICAN > 60; GFR NON-AFRICAN AMERICAN > 60
[2017-10-19] MEDS ORDERED: Potassium Chloride 40 mEq/30 ml LIQ UD PO ONE (08:57)
[2017-10-19] MEDS: Enoxaparin 40 mg Syringe SC SCH (10:08)
--- NOTE | 2017-10-19 11:21 | CARD ---
APPROVED REPORT EKG Measurement Heart [id number] <Conclusion> Sinus tachycardia Possible Left atrial enlargement Borderline ECG
[2017-10-19 12:30] LABS: HEPATITIS B SURFACE AG Negative (NEGATIVE)
[2017-10-19 12:36] LABS: HEPATITIS A IGM NEGATIVE (NEGATIVE); HEPATITIS B CORE AB NEGATIVE (NEGATIVE)
[2017-10-19 12:47] LABS: HEPATITIS C ANTIBODY NEGATIVE (NEGATIVE)
--- NOTE | 2017-10-19 13:00 | CP.PCM.PN ---
<Villa Espinoza - Last Filed: 10/19/17 12:50> Subjective - Date & Time of Evaluation Date of Evaluation: 10/19/17 Time of Evaluation: 07:30 - Subjective Subjective: IM Progress Note for Hospitalist Service Patient seen and examined at bedside. Overnight, after admission, had a CODE STAR event (please see Dr. Trevino's overnight note for further details), and later claimed suicidal ideation to medicine team, so was placed on 1:1. Today, reports feeling better, but is grossly tremulous with any movements. Denies any SI or saying any such things last night. No issues as per the 1:1. Pt denies chest pain, shortness of breath, nausea, emesis. Oriented to self and location. Following all commands appropriately. Objective - Vital Signs/Intake and Output Vital Signs (last 24 hours): Temp Pulse Resp BP Pulse Ox 98.1 F 72 20 180/100 H 96 10/19/17 12:00 10/19/17 12:00 10/19/17 12:00 10/19/17 12:00 10/19/17 06:00 - Medications Medications: Current Medications Aspirin (Ecotrin) 81 mg PO DAILY [facility] Last Admin: 10/19/17 10:09 Dose: 81 mg Calcium Carbonate (Caltrate) 600 mg PO BID [facility] Last Admin: 10/19/17 10:09 Dose: 600 mg Enoxaparin Sodium (Lovenox) 40 mg SC DAILY [facility] PRN Reason: Protocol Last Admin: 10/19/17 10:08 Dose: 40 mg Folic Acid (Folic Acid) 1 mg PO DAILY [facility] Last Admin: 10/19/17 10:09 Dose: 1 mg Lorazepam (Ativan) 2 mg PO QID [facility] PRN Reason: Protocol Last Admin: 10/19/17 10:11 Dose: 2 mg Lorazepam (Ativan) 2 mg IVP Q2H PRN; Protocol PRN Reason: alcohol withdrawals Metoprolol Tartrate (Lopressor) 50 mg PO BID [facility] Last Admin: 10/19/17 10:09 Dose: 50 mg Multivitamins/Minerals (Therapeutic-M Tab) 1 tab PO 0800 [facility] Ondansetron HCl (Zofran Inj) 4 mg IVP Q6H PRN PRN Reason: Nausea/Vomiting Pantoprazole Sodium (Protonix Ec Tab) 40 mg PO ACB [facility] Thiamine HCl (Vitamin B1 Tab) 100 mg PO DAILY [facility] Last Admin: 10/19/17 10:08 Dose: 100 mg - Labs Labs: 10/19/17 06:30 10/19/17 06:30 PT 11.4 SECONDS (9.4-12.5) 10/18/17 13:00 INR 1.00 (0.93-1.08) 10/18/17 13:00 APTT 26.8 Seconds (25.1-36.5) 10/18/17 13:00 - Constitutional Appears: Non-toxic, No Acute Distress, Older Than Stated Age, Chronically Ill - Head Exam Head Exam: ATRAUMATIC, NORMAL INSPECTION, NORMOCEPHALIC - Eye Exam Eye Exam: EOMI, Normal appearance. absent: Conjunctival injection, Scleral icterus Pupil Exam: absent: Irregular, Unequal - ENT Exam ENT Exam: Mucous Membranes Moist - Neck Exam Neck Exam: Full ROM - Respiratory Exam Respiratory Exam: Decreased Breath Sounds (mildly decreased breath sounds in all turcios, otherwise CTAB), Clear to Ausculation Bilateral, NORMAL BREATHING PATTERN. absent: Accessory Muscle Use, Rales, Rhonchi, Wheezes - Cardiovascular Exam Cardiovascular Exam: REGULAR RHYTHM, RRR, +S1, +S2. absent: Bradycardia, Tachycardia, Irregular Rhythm, JVD, +S4 - GI/Abdominal Exam GI & Abdominal Exam: Soft, Normal Bowel Sounds. absent: Distended, Firm, Guarding, Rigid, Tenderness, Diminished Bowel Sounds, Hyperactive Bowel Sounds, Hypoactive Bowel Sounds - Extremities Exam Extremities Exam: Normal Capillary Refill. absent: Calf Tenderness, Pedal Edema , Tenderness - Neurological Exam Additional comments: sleeping initially but easily arousable, then awake and alert, following all commands appropriately no tremors at rest, but diffusely and pronounced tremors throughout body When holding arms parallel to bed, initially tremulous, but then tremors decrease (while holding arms still) - Psychiatric Exam Psychiatric exam: Normal Affect, Normal Mood - Skin Skin Exam: Dry, Intact, Normal Color, Warm Assessment and Plan - Assessment and Plan (Free Text) Assessment: Patient is a 56 year old male with past medical history of CAD (1 stent), Alcohol abuse, Depression, HLD, Paroxysmal afib (not on AC 2/2 non-compliance and fall risk), HTN presents to [facility] with acute alcohol intoxication and depression. S/p CODE Star overnight. Plan: 1) Alcohol withdrawal -Alcohol 397 on admission -Ativan 2mg Q2H IV prn, Ativan 2mg PO QID paradise; avoid librium due to LFT elevations -Zofran prn nausea -UTOX negative -CIWA protocol; AM score 2 -Aspiration precautions, seizure precautions 2) History of Depression/History of suicidal ideation -Patient states that he is depressed and needs help, expressed SI overnight, now on 1:1 -Will continue home dose of Zoloft 100mg PO daily -Psych on consult, help appreciated; defer to Psych to determine if 1:1 can be discontinued 3) Elevated Liver Enzymes - improved -AST/ALT decreased from 299/270 to 251/247 -History of positive Hepatitis A ab -Will recheck Hepatitis panel; panel negative -Abdominal US ordered: notable for sludge without acute cholecystitis, non- specific heterogenous enhancement of liver -Avoid Hepatotoxic medications (Lipitor on hold) -Continue to monitor 4) Anion gap metabolic acidosis - improved -Anion 21 on admission, gap 16 today -Likely secondary to alcohol -Continue IV fluids -Continue to monitor gap 5) History of Paraoxysmal Afib -Not on anticoagulation due to non-compliance -Metoprolol 50mg PO BID with hold parameters -EKG in ED showing sinus tachy 102, possible left atrial enlargement; RRR today 6) HLD -continue to hold statin due to LFT elevations 7) CAD -Troponin negative x 1 -Continue ASA 81mg PO daily 8) Leukocytosis - resolved -CXR showing no active disease -UA trace blood -WBC 11.5 on admission, 7.4 today -rapid flu and procal negative 9) History of Hypertension -Home medications: HTCZ, Metoprolol, Norvasc, Diovan -elevated to 180's systolic today. restarted home norvasc and diovan -Can restart home medications as needed, PRN Hydralazine for SBP > 160 10) Elevated CPK -IV fluid hydration -CPK 889 -Continue to monitor 11) Bilateral lower extremity pain -Lower extremity duplex ordered, negative for DVT Dispo: Tele, withdrawing from alcohol, on CIWA protocol, adjust Ativan dosing as needed FEN: HHD, NS + 20 mEq KCl per bag 125cc/hr, Ca supplementation Access: Peripheral IV Consults: Psych Ppx: Protonix for GI, SCDs for DVT Patient seen, reviewed, and discussed with attending, Dr. Yeung. <Mike Yeung - Last Filed: 10/19/17 19:02> Objective - Vital Signs/Intake and Output Vital Signs (last 24 hours): Temp Pulse Resp BP Pulse Ox 98.1 F 72 20 180/90 H 96 10/19/17 12:00 10/19/17 12:00 10/19/17 12:00 10/19/17 13:54 10/19/17 06:00 - Medications Medications: Current Medications Amlodipine Besylate (Norvasc) 10 mg PO DAILY [facility] Last Admin: 10/19/17 13:54 Dose: 10 mg Aspirin (Ecotrin) 81 mg PO DAILY [facility] Last Admin: 10/19/17 10:09 Dose: 81 mg Calcium Carbonate (Caltrate) 600 mg PO BID [facility] Last Admin: 10/19/17 17:51 Dose: 600 mg Enoxaparin Sodium (Lovenox) 40 mg SC DAILY [facility] PRN Reason: Protocol Last Admin: 10/19/17 10:08 Dose: 40 mg Folic Acid (Folic Acid) 1 mg PO DAILY [facility] Last Admin: 10/19/17 10:09 Dose: 1 mg Hydralazine HCl (Apresoline) 10 mg IVP Q6 PRN PRN Reason: SBP > 160 Potassium Chloride 20 meq/ (Sodium Chloride) 1,010 mls @ 125 mls/hr IV .Q8H5M [facility] Last Admin: 10/19/17 14:49 Dose: 125 mls/hr Lorazepam (Ativan) 2 mg PO QID [facility] PRN Reason: Protocol Last Admin: 10/19/17 17:51 Dose: 2 mg Lorazepam (Ativan) 2 mg IVP Q2H PRN; Protocol PRN Reason: alcohol withdrawals Metoprolol Tartrate (Lopressor) 50 mg PO BID [facility] Last Admin: 10/19/17 17:51 Dose: 50 mg Multivitamins/Minerals (Therapeutic-M Tab) 1 tab PO 0800 [facility] Ondansetron HCl (Zofran Inj) 4 mg IVP Q6H PRN PRN Reason: Nausea/Vomiting Pantoprazole Sodium (Protonix Ec Tab) 40 mg PO ACB [facility] Thiamine HCl (Vitamin B1 Tab) 100 mg PO DAILY [facility] Last Admin: 10/19/17 10:08 Dose: 100 mg Valsartan (Diovan) 320 mg PO DAILY [facility] Last Admin: 10/19/17 13:54 Dose: 320 mg - Labs Labs: 10/19/17 06:30 10/19/17 06:30 PT 11.4 SECONDS (9.4-12.5) 10/18/17 13:00 INR 1.00 (0.93-1.08) 10/18/17 13:00 APTT 26.8 Seconds (25.1-36.5) 10/18/17 13:00 Attending/Attestation - Attestation I have personally seen and examined this patient.: Yes I have fully participated in the care of the patient.: Yes I have reviewed all pertinent clinical information, including history, physical exam and plan: Yes Notes (Text): I have seen and examined the patient at bedside. Agree with the above note with the following additions/ exceptions: Briefly this is 56 year old male with history of CAD s/p stent, alcohol abuse, depression, dyslipidemia, PAF not on anticoagulation due to non compliance and fall risk, HTN who was admitted for alcohol intoxication and worsening of depression. Will continue CIWA protocol and increase the paradise dose of ativan. Awaiting psych consult. Fall risk. Patient denies homicidal or suicidal ideation. Upon discharge patient will follow up with Dr Gomez.
--- NOTE | 2017-10-19 17:27 | CON ---
DATE: HISTORY OF PRESENT ILLNESS: In short, the patient is a 56-year-old male from [place]. The patient has long and debilitating history of alcohol use disorder. This mortgage or loan underwriter is familiar with this patient from the consultation service, which took place here in [place] in November 1016. In the emergency room, the patient was under the influence of the alcohol, was looking for detox for his alcohol withdrawal symptoms. This time, the patient was admitted on the medical site for evaluation of generalized chest pain. Also, the patient has a history atrial fibrillation, COPD and also the patient has alcohol withdrawals as well as alcohol addiction problems. Psych consult was called for evaluation of mood symptoms, which could be related to alcohol consumption. The patient was seen. Notes from overnight shift reviewed. The patient had episode of falling, very unsteady gait. The patient was started on one-to-one observation, not for suicidality but safety. The patient presented to be sleepy, easily arousable. Whenever the patient wakes up, severe shakes, also the patient presented to be mildly confused and not comfortable, sweating. Stat dose of Ativan 3 mg p.o. given. Multivitamins, thiamine, and folic acid started. This mortgage or loan underwriter increased the dose of Ativan scheduled 2 mg 4 times a day as well as the patient has p.r.n. medication, Ativan IV push. The patient reported that he was drinking since last Wednesday. For past week and half, he was drinking on daily basis, binge drinking. The patient has history of alcohol withdrawal symptoms in the past, also detoxes in the past. The patient reported that he has history of depression but denied that he was taking any medications. The patient said that he was not on Zoloft and the patient is on Zoloft right now which could be anxiety provoking. This mortgage or loan underwriter will stop Zoloft. This patient reported that he was feeling depressed but denied any thoughts of harming himself or others. Denied any hallucinations. This mortgage or loan underwriter reviewed vital signs. Vital signs seem to be stable but the patient has mild tachycardia as well as blood pressure is elevated at 168/90. MEDICATIONS: Reviewed. The patient is on aspirin, calcium, Lovenox, folic acid, was started Ativan 2 mg of IV push every 2 hours p.r.n. for alcohol withdrawal symptoms as scheduled. The patient also is on Ativan 2 mg p.o. four times a day as scheduled. The patient is on Lopressor 50 mg twice a day, multivitamins. The patient also on Zofran, Protonix, thiamine. LABORATORY DATA: Reviewed. WBC was 11.5, today is 7.4. Chemistry reviewed. AST and ALT elevated at 251 and 247. Procalcitonin is 0.09. Urinalysis, blood showed alcohol level was 397. The rest is negative. Serology also reviewed, influenza negative. MENTAL STATUS EXAMINATION: The patient appears to be sleepy, easily arousable, upper extremity tremor. The patient was oriented to himself and place, not time. Intermittent eye contact. Mood described as depressed. Affect was constricted, but reactive. mood congruent. Thought process seems to be coherent and goal directed. Thought content, the patient denied visual, auditory, or tactile hallucinations. Denied paranoid ideation. The patient denied thoughts of harming himself or others. Denied intent or plan. Insight and judgment seem to be limited into alcohol addiction. Impulses are unpredictable. IMPRESSION: Alcohol withdrawal, alcohol use disorder, rule out mood disorder, rule out substance-induced mood disorder, rule out substance-induced anxiety disorder. PLAN: Multivitamins, thiamine, and folic acid. Ativan was increased to 2 mg four times a day scheduled as well as Ativan IV push 2 mg every 2 hours as needed for alcohol withdrawals. The patient got 3 mg of Ativan stat after this mortgage or loan underwriter's evaluation. The patient is on one-to-one because the patient had episodes of confusion and fell overnight. The patient denied that he is suicidal but at the same time, the patient is unpredictable and delirium cannot be ruled out at present moment. We will follow up and advise accordingly. This mortgage or loan underwriter held Zoloft because the patient reported that he was not taking any Zoloft before coming to the hospital, moreover higher doses of Zoloft could exacerbate anxiety and tremor and upset stomach and diarrhea, that is why this mortgage or loan underwriter will hold that medication in the future. I will discuss naltrexone option. Should you have any questions, give me a call back. Thank you very much for letting me participate in care of your patient. Beti Sol MD
[2017-10-20 07:39] LABS: BASO # 0.03 K/mm3 (0.0-2.0); BASO % 0.5 % (0.0-3.0); EOS # 0.1 (0.0-0.7); EOS % 1.6 % (1.5-5.0); GRAN # 2.63 (1.4-6.5); GRAN % 47.2 % (50.0-68.0); HEMOGLOBIN 13.5 g/dL (14.0-18.0); LYMPH # 2.1 (1.2-3.4); LYMPH % 37.8 % (22.0-35.0); MEAN CELL VOLUME 90.4 fl (80.0-105.0); MEAN CORPUSCULAR HEMOGLOBIN 31.7 pg (25.0-35.0); MEAN CORPUSCULAR HGB CONC 35.1 g/dl (31.0-37.0); MEAN PLATELET VOLUME 10.8 fl (7.0-11.0); MONO # 0.7 (0.1-0.6); MONO % 12.9 % (1.0-6.0); RBC 4.26 10^6/uL (3.5-6.1); RED CELL DISTRIBUTION WIDTH 12.6 % (11.5-14.5); WHITE BLOOD COUNT 5.6 10^3/ul (4.5-11.0)
[2017-10-20 08:02] LABS: ALB/GLOB RATIO 1.4 (1.1-1.8); ALBUMIN 4.2 g/dL (3.0-4.8); ALT/SGPT 170 U/L (7-56); AST/SGOT 134 U/L (17-59); BLOOD UREA NITROGEN 9 mg/dL (7-21); CALCIUM 8.4 mg/dL (8.4-10.5); GFR AFRICAN-AMERICAN > 60; GFR NON-AFRICAN AMERICAN > 60
[2017-10-20] MEDS: Pantoprazole 40 mg EC Tab PO SCH (08:46)
[2017-10-20] MEDS: Multivitamin With Minerals Tab PO SCH (08:46)
--- NOTE | 2017-10-20 08:55 | CP.PCM.PN ---
<Villa Espinoza - Last Filed: 10/20/17 11:35> Subjective - Date & Time of Evaluation Date of Evaluation: 10/20/17 Time of Evaluation: 07:20 - Subjective Subjective: IM Progress Note for Hospitalist Service Patient seen and examined at bedside. Overnight, ambulated without calling for assistance despite instructions and [employer] system in place, found in bathroom. No falls reported. This AM, no acute complaints. Less tremulous overall this AM. Denies chest pain, shortness of breath, nausea, emesis. Objective - Vital Signs/Intake and Output Vital Signs (last 24 hours): Temp Pulse Resp BP Pulse Ox 97.7 F 85 18 178/101 H 96 10/20/17 06:00 10/20/17 06:00 10/20/17 06:00 10/20/17 05:51 10/20/17 06:00 Intake and Output: 10/20/17 10/20/17 06:59 18:59 Intake Total 1740 Balance 1740 - Medications Medications: Current Medications Amlodipine Besylate (Norvasc) 10 mg PO DAILY [facility] Last Admin: 10/19/17 13:54 Dose: 10 mg Aspirin (Ecotrin) 81 mg PO DAILY [facility] Last Admin: 10/19/17 10:09 Dose: 81 mg Calcium Carbonate (Caltrate) 600 mg PO BID [facility] Last Admin: 10/19/17 17:51 Dose: 600 mg Enoxaparin Sodium (Lovenox) 40 mg SC DAILY [facility] PRN Reason: Protocol Last Admin: 10/19/17 10:08 Dose: 40 mg Folic Acid (Folic Acid) 1 mg PO DAILY [facility] Last Admin: 10/19/17 10:09 Dose: 1 mg Hydralazine HCl (Apresoline) 10 mg IVP Q6 PRN PRN Reason: SBP > 160 Last Admin: 10/20/17 05:51 Dose: 10 mg Potassium Chloride 20 meq/ (Sodium Chloride) 1,010 mls @ 125 mls/hr IV .Q8H5M [facility] Last Admin: 10/20/17 06:46 Dose: Not Given Lorazepam (Ativan) 2 mg PO QID [facility] PRN Reason: Protocol Last Admin: 10/19/17 21:23 Dose: 2 mg Lorazepam (Ativan) 2 mg IVP Q2H PRN; Protocol PRN Reason: alcohol withdrawals Metoprolol Tartrate (Lopressor) 50 mg PO BID [facility] Last Admin: 10/19/17 17:51 Dose: 50 mg Multivitamins/Minerals (Therapeutic-M Tab) 1 tab PO 0800 [facility] Last Admin: 10/20/17 08:46 Dose: 1 tab Ondansetron HCl (Zofran Inj) 4 mg IVP Q6H PRN PRN Reason: Nausea/Vomiting Pantoprazole Sodium (Protonix Ec Tab) 40 mg PO ACB [facility] Last Admin: 10/20/17 08:46 Dose: 40 mg Thiamine HCl (Vitamin B1 Tab) 100 mg PO DAILY [facility] Last Admin: 10/19/17 10:08 Dose: 100 mg Valsartan (Diovan) 320 mg PO DAILY [facility] Last Admin: 10/19/17 13:54 Dose: 320 mg - Labs Labs: 10/20/17 07:00 10/20/17 07:00 PT 11.4 SECONDS (9.4-12.5) 10/18/17 13:00 INR 1.00 (0.93-1.08) 10/18/17 13:00 APTT 26.8 Seconds (25.1-36.5) 10/18/17 13:00 - Additional Findings Additional findings: - Constitutional Appears: Non-toxic, No Acute Distress, Older Than Stated Age, Chronically Ill - Head Exam Head Exam: ATRAUMATIC, NORMAL INSPECTION, NORMOCEPHALIC - Eye Exam Eye Exam: EOMI, Normal appearance. absent: Conjunctival injection, Scleral icterus Pupil Exam: absent: Irregular, Unequal - ENT Exam ENT Exam: Mucous Membranes Moist - Neck Exam Neck Exam: Full ROM - Respiratory Exam Respiratory Exam: Decreased Breath Sounds (mildly decreased breath sounds in all turcios, otherwise CTAB), Clear to Ausculation Bilateral, NORMAL BREATHING PATTERN. absent: Accessory Muscle Use, Rales, Rhonchi, Wheezes - Cardiovascular Exam Cardiovascular Exam: REGULAR RHYTHM, RRR, +S1, +S2. absent: Bradycardia, Tachycardia, Irregular Rhythm, JVD, +S4 - GI/Abdominal Exam GI & Abdominal Exam: Soft, Normal Bowel Sounds. absent: Distended, Firm, Guarding, Rigid, Tenderness, Diminished Bowel Sounds, Hyperactive Bowel Sounds, Hypoactive Bowel Sounds - Extremities Exam Extremities Exam: Normal Capillary Refill. absent: Calf Tenderness, Pedal Edema , Tenderness - Neurological Exam awake and alert, following all commands appropriately no tremors at rest, but moderately tremulous with movements (improved compared to yesterday) When holding arms parallel to bed, initially tremulous, but then tremors decrease (while holding arms still) - Psychiatric Exam Psychiatric exam: Normal Affect, Normal Mood - Skin Skin Exam: Dry, Intact, Normal Color, Warm Assessment and Plan - Assessment and Plan (Free Text) Assessment: Patient is a 56 year old male with past medical history of CAD (1 stent), Alcohol abuse, Depression, HLD, Paroxysmal afib (not on AC 2/2 non-compliance and fall risk), HTN presents to [facility] with acute alcohol intoxication and depression. Plan: 1) Alcohol withdrawal -Alcohol 397 on admission -Ativan 2mg Q2H IV prn, Ativan 2mg PO QID paradise; avoid librium due to LFT elevations -Zofran prn nausea -Utox negative -CIWA protocol; AM score 6 -Aspiration precautions, seizure precautions 2) History of Depression/History of suicidal ideation -Patient states that he is depressed and needs help, expressed SI overnight s/p CODE STAR but now denies to psych -Psych on consult, help appreciated; 1:1 d/c, pt denies on Zoloft at home now so zoloft d/c, may be candidate for naltrexone 3) Elevated Liver Enzymes - improved -AST/ALT decreased from 299/270 on admit to 134/170 -History of positive Hepatitis A ab -Will recheck Hepatitis panel; panel negative -Abdominal US ordered: notable for sludge without acute cholecystitis, non- specific heterogenous enhancement of liver -Avoid Hepatotoxic medications (Lipitor on hold) -Continue to monitor 4) Anion gap metabolic acidosis - improved -Anion 21 on admission, gap 12 today -Likely secondary to alcohol -Continue IV fluids -Continue to monitor gap 5) History of Paraoxysmal Afib -Not on anticoagulation due to non-compliance -Metoprolol 50mg PO BID with hold parameters -EKG in ED showing sinus tachy 102, possible left atrial enlargement; RRR today 6) HLD -continue to hold statin due to LFT elevations 7) CAD -Troponin negative x 1 -Continue ASA 81mg PO daily 8) Leukocytosis - resolved -CXR showing no active disease -UA trace blood -WBC 11.5 on admission, 5.6 today -rapid flu and procal negative 9) History of Hypertension -Home medications: HTCZ, Metoprolol, Norvasc, Diovan -Restarted home norvasc and diovan -Can restart remaining home medications as needed, PRN Hydralazine for SBP > 160 10) Elevated CPK -IV fluid hydration -CPK 889 -Continue to monitor 11) Bilateral lower extremity pain -Lower extremity duplex ordered, negative for DVT Dispo: Tele, withdrawing from alcohol, on CIWA protocol, adjust Ativan dosing as needed, restarting home antihypertensives as needed FEN: HHD, NS + 20 mEq KCl per bag 125cc/hr, Ca supplementation Access: Peripheral IV Consults: Psych Ppx: Protonix for GI, SCDs for DVT Patient seen, reviewed, and discussed with attending, Dr. Yeung. <Mike Yeung - Last Filed: 10/20/17 16:40> Objective - Vital Signs/Intake and Output Vital Signs (last 24 hours): Temp Pulse Resp BP Pulse Ox 98.2 F 76 20 159/97 H 96 10/20/17 12:00 10/20/17 14:00 10/20/17 12:00 10/20/17 12:00 10/20/17 06:00 Intake and Output: 10/20/17 10/20/17 06:59 18:59 Intake Total 1740 300 Output Total 600 Balance 1740 -300 - Medications Medications: Current Medications Amlodipine Besylate (Norvasc) 10 mg PO DAILY [facility] Last Admin: 10/20/17 10:03 Dose: 10 mg Aspirin (Ecotrin) 81 mg PO DAILY [facility] Last Admin: 10/20/17 10:03 Dose: 81 mg Calcium Carbonate (Caltrate) 600 mg PO BID [facility] Last Admin: 10/20/17 10:03 Dose: 600 mg Enoxaparin Sodium (Lovenox) 40 mg SC DAILY [facility] PRN Reason: Protocol Last Admin: 10/20/17 10:02 Dose: 40 mg Folic Acid (Folic Acid) 1 mg PO DAILY [facility] Last Admin: 10/20/17 10:03 Dose: 1 mg Hydralazine HCl (Apresoline) 10 mg IVP Q6 PRN PRN Reason: SBP > 160 Last Admin: 10/20/17 05:51 Dose: 10 mg Potassium Chloride 20 meq/ (Sodium Chloride) 1,010 mls @ 125 mls/hr IV .Q8H5M [facility] Last Admin: 10/20/17 06:46 Dose: Not Given Lorazepam (Ativan) 2 mg PO QID [facility] PRN Reason: Protocol Last Admin: 10/20/17 13:56 Dose: 2 mg Lorazepam (Ativan) 2 mg IVP Q2H PRN; Protocol PRN Reason: alcohol withdrawals Metoprolol Tartrate (Lopressor) 50 mg PO BID [facility] Last Admin: 10/20/17 10:02 Dose: 50 mg Multivitamins/Minerals (Therapeutic-M Tab) 1 tab PO 0800 [facility] Last Admin: 10/20/17 08:46 Dose: 1 tab Ondansetron HCl (Zofran Inj) 4 mg IVP Q6H PRN PRN Reason: Nausea/Vomiting Pantoprazole Sodium (Protonix Ec Tab) 40 mg PO ACB [facility] Last Admin: 10/20/17 08:46 Dose: 40 mg Thiamine HCl (Vitamin B1 Tab) 100 mg PO DAILY [facility] Last Admin: 10/20/17 10:03 Dose: 100 mg Valsartan (Diovan) 320 mg PO DAILY [facility] Last Admin: 10/20/17 10:03 Dose: 320 mg - Labs Labs: 10/20/17 07:00 10/20/17 07:00 PT 11.4 SECONDS (9.4-12.5) 10/18/17 13:00 INR 1.00 (0.93-1.08) 10/18/17 13:00 APTT 26.8 Seconds (25.1-36.5) 10/18/17 13:00 Attending/Attestation - Attestation I have personally seen and examined this patient.: Yes I have fully participated in the care of the patient.: Yes I have reviewed all pertinent clinical information, including history, physical exam and plan: Yes Notes (Text): I have seen and examined the patient at bedside. Agree with the above note with the following additions/ exceptions: Briefly this is 56 year old male with history of CAD s/p stent, alcohol abuse, depression, dyslipidemia, PAF not on anticoagulation due to non compliance and fall risk, HTN who was admitted for alcohol intoxication and worsening of depression. Will continue CIWA protocol and tapering doses of ativan. Psych consult appreciated. Fall risk. Patient denies homicidal or suicidal ideation. Upon discharge patient will follow up with Dr Gomez.
[2017-10-20] MEDS: Enoxaparin 40 mg Syringe SC SCH (10:02)
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
[2017-10-20] MEDS ORDERED: Sodium Phosphate 15 MMOLE in Sodium Chloride 0.9% 250 ML IVPB ONE (22:38)
--- NOTE | 2017-10-20 23:08 | CP.PCM.PN ---
Subjective - Date & Time of Evaluation Date of Evaluation: 10/20/17 Time of Evaluation: 23:07 - Subjective Subjective: Responded to CODE GLEASON. # 18 angiocath was inserted in right antecubital area. Objective - Vital Signs/Intake and Output Vital Signs (last 24 hours): Temp Pulse Resp BP Pulse Ox 98.8 F 109 H 18 144/97 H 96 10/20/17 17:45 10/20/17 18:00 10/20/17 17:45 10/20/17 17:45 10/20/17 06:00 Intake and Output: 10/20/17 10/21/17 18:59 06:59 Intake Total 300 Output Total 600 Balance -300 - Medications Medications: Current Medications Amlodipine Besylate (Norvasc) 10 mg PO DAILY [facility] Last Admin: 10/20/17 10:03 Dose: 10 mg Aspirin (Ecotrin) 81 mg PO DAILY [facility] Last Admin: 10/20/17 10:03 Dose: 81 mg Calcium Carbonate (Caltrate) 600 mg PO BID [facility] Last Admin: 10/20/17 17:05 Dose: 600 mg Enoxaparin Sodium (Lovenox) 40 mg SC DAILY [facility] PRN Reason: Protocol Last Admin: 10/20/17 10:02 Dose: 40 mg Folic Acid (Folic Acid) 1 mg PO DAILY [facility] Last Admin: 10/20/17 10:03 Dose: 1 mg Hydralazine HCl (Apresoline) 10 mg IVP Q6 PRN PRN Reason: SBP > 160 Last Admin: 10/20/17 05:51 Dose: 10 mg Potassium Chloride 20 meq/ (Sodium Chloride) 1,010 mls @ 125 mls/hr IV .Q8H5M [facility] Last Admin: 10/20/17 17:03 Dose: 125 mls/hr Sodium Phosphate 15 mmole/ (Sodium Chloride) 255 mls @ 42.5 mls/hr IVPB ONCE ONE Stop: 10/21/17 04:37 Lorazepam (Ativan) 2 mg PO QID [facility] PRN Reason: Protocol Last Admin: 10/20/17 21:22 Dose: 2 mg Lorazepam (Ativan) 2 mg IVP Q2H PRN; Protocol PRN Reason: alcohol withdrawals Last Admin: 10/20/17 20:10 Dose: 2 mg Metoprolol Tartrate (Lopressor) 50 mg PO BID [facility] Last Admin: 10/20/17 17:06 Dose: 50 mg Multivitamins/Minerals (Therapeutic-M Tab) 1 tab PO 0800 [facility] Last Admin: 10/20/17 08:46 Dose: 1 tab Ondansetron HCl (Zofran Inj) 4 mg IVP Q6H PRN PRN Reason: Nausea/Vomiting Pantoprazole Sodium (Protonix Ec Tab) 40 mg PO ACB [facility] Last Admin: 10/20/17 08:46 Dose: 40 mg Thiamine HCl (Vitamin B1 Tab) 100 mg PO DAILY [facility] Last Admin: 10/20/17 10:03 Dose: 100 mg Valsartan (Diovan) 320 mg PO DAILY [facility] Last Admin: 10/20/17 10:03 Dose: 320 mg - Labs Labs: 10/20/17 07:00 10/20/17 07:00 PT 11.4 SECONDS (9.4-12.5) 10/18/17 13:00 INR 1.00 (0.93-1.08) 10/18/17 13:00 APTT 26.8 Seconds (25.1-36.5) 10/18/17 13:00
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
[2017-10-21 06:43] LABS: BASO # 0.04 K/mm3 (0.0-2.0); BASO % 0.6 % (0.0-3.0); EOS # 0.2 (0.0-0.7); EOS % 3.2 % (1.5-5.0); GRAN # 3.2 (1.4-6.5); GRAN % 51.5 % (50.0-68.0); HEMOGLOBIN 12.7 g/dL (14.0-18.0); LYMPH # 2.1 (1.2-3.4); LYMPH % 34.4 % (22.0-35.0); MEAN CELL VOLUME 92.3 fl (80.0-105.0); MEAN CORPUSCULAR HEMOGLOBIN 31.4 pg (25.0-35.0); MEAN PLATELET VOLUME 10.5 fl (7.0-11.0); MONO # 0.6 (0.1-0.6); MONO % 10.3 % (1.0-6.0); RBC 4.05 10^6/uL (3.5-6.1); RED CELL DISTRIBUTION WIDTH 12.7 % (11.5-14.5); WHITE BLOOD COUNT 6.2 10^3/ul (4.5-11.0)
[2017-10-21 07:13] LABS: ALB/GLOB RATIO 1.4 (1.1-1.8); ALBUMIN 4.3 g/dL (3.0-4.8); ALT/SGPT 132 U/L (7-56); AST/SGOT 82 U/L (17-59); BLOOD UREA NITROGEN 7 mg/dL (7-21); CALCIUM 8.8 mg/dL (8.4-10.5); GFR AFRICAN-AMERICAN > 60; GFR NON-AFRICAN AMERICAN > 60
[2017-10-21] MEDS: Dexmedetomidine 400mcg/100mL 400 MCG/100 ML BOTTLE IV PRN ×2 (08:05→17:20)
[2017-10-21] MEDS: Pantoprazole 40 mg EC Tab PO SCH (08:07)
[2017-10-21] MEDS: Multivitamin With Minerals Tab PO SCH (08:08)
[2017-10-21] MEDS: Enoxaparin 40 mg Syringe SC SCH (09:05)
--- NOTE | 2017-10-21 10:34 | CP.CCUPN ---
<Calvin Perez - Last Filed: 10/21/17 10:26> CCU Subjective - Physician Review Subjective (Free Text): ICU consult note: Pt seen adn examined at bedside. Pt is currently in 4 point restraint, 0.2mg of Precedex ggt, and Ativan for ETOH withdrawal and agitation. Currently resting in bed comfortably. No complaints. 12 Point ROS performed and neg other than stated above. CCU Objective - Vital Signs / Intake & Output Vital Signs (Last 4 hours): Vital Signs Pulse BP 10/21/17 09:04 99 H 178/106 H Intake and Output (Last 8hrs): Intake & Output 10/20/17 10/21/17 10/21/17 22:59 06:59 14:59 Intake Total 1050 970 Output Total 500 250 Balance 550 720 Intake: IV 750 720 Right Upper arm 750 720 Oral 300 250 Output: Urine 500 250 Urethral (Thibodeaux) 250 Urine, Voided 500 Other: # Bowel Movements 0 - Physical Exam Head: Positive for: Atraumatic Pupils: Positive for: PERRL Extroacular Muscles: Positive for: EOMI Conjunctiva: Positive for: Normal Ears: Positive for: Normal Mouth: Positive for: Moist Mucous Membranes Pharnyx: Positive for: Normal Nose (External): Positive for: Atraumatic Nose (Internal): Positive for: Normal Inspection Neck: Positive for: Normal Range of Motion Respiratory/Chest: Positive for: Clear to Auscultation Cardiovascular: Positive for: Regular Rate and Rhythm Abdomen: Negative for: Tenderness, Distention, Normal Bowel Sounds, Peritoneal Signs, Rebound, Guarding, McBurney's Point Tender, Rovsing's Sign Present, Hernias, Feeding Tubes, Ostomy Tubes, Mass/Organomegaly, Scars, Other Back: Positive for: Normal Inspection Upper Extremity: Positive for: Normal Inspection Lower Extremity: Positive for: Normal Inspection Neurological: Positive for: GCS=15, CN II-XII Intact, Speech Normal, Motor Func Grossly Intact Skin: Positive for: Warm, Normal Color Psychiatric: Positive for: Alert, Oriented x 3, Normal Insight, Normal Concentration, Anxious, Suicidal Ideation - Medications Active Medications: Active Medications Generic Name Dose Route Start Last Admin Trade Name Freq PRN Reason Stop Dose Admin Amlodipine Besylate 10 mg 10/19/17 13:30 10/21/17 09:04 Norvasc PO 10 mg DAILY MERVAT Administration Aspirin 81 mg 10/19/17 10:00 10/21/17 09:04 Ecotrin PO 81 mg DAILY MERVAT Administration Calcium Carbonate 600 mg 10/19/17 10:00 10/21/17 09:04 Caltrate PO 600 mg BID MERVAT Administration Enoxaparin Sodium 40 mg 10/19/17 10:00 10/21/17 09:05 Lovenox SC 40 mg DAILY MERVAT Administration Protocol Folic Acid 1 mg 10/19/17 10:00 10/21/17 09:04 Folic Acid PO 1 mg DAILY MERVAT Administration Hydralazine HCl 10 mg 10/19/17 13:06 10/20/17 05:51 Apresoline IVP 10 mg Q6 PRN Administration SBP > 160 Potassium Chloride 20 meq/ 1,010 mls @ 125 mls/hr 10/19/17 13:45 10/21/17 09: 04 Sodium Chloride IV 125 mls/hr .Q8H5M MERVAT Administration Dexmedetomidine HCl 400 mcg in 100 mls @ 3.856 mls/hr 10/21/17 02:04 08:05 Precedex 400mcg/100ml IV 0.2 mcg/kg/hr .Q24H PRN 3.856 mls/hr Symptoms of alcohol withdrawl Administration Protocol 0.2 MCG/KG/HR Lorazepam 2 mg 10/19/17 10:02 10/21/17 10:21 Ativan IVP 2 mg Q2H PRN Administration alcohol withdrawals Protocol Lorazepam 6 mg 10/20/17 23:29 Ativan IM ONCE PRN withdrawal Protocol Lorazepam 2 mg 10/21/17 03:30 10/21/17 03:35 Ativan IVP 2 mg Q6H MERVAT Administration Protocol Metoprolol Tartrate 50 mg 10/18/17 18:00 10/21/17 09:04 Lopressor PO 50 mg BID MERVAT Administration Multivitamins/Minerals 1 tab 10/20/17 08:00 10/21/17 08:08 Therapeutic-M Tab PO 1 tab 0800 MERVAT Administration Ondansetron HCl 4 mg 10/18/17 17:40 Zofran Inj IVP Q6H PRN Nausea/Vomiting Pantoprazole Sodium 40 mg 10/20/17 07:30 10/21/17 08:07 Protonix Ec Tab PO 40 mg ACB MERVAT Administration Thiamine HCl 100 mg 10/19/17 10:00 10/21/17 09:04 Vitamin B1 Tab PO 100 mg DAILY MERVAT Administration Valsartan 320 mg 10/19/17 13:30 10/21/17 09:04 Diovan PO 320 mg DAILY MERVAT Administration Ziprasidone 20 mg 10/20/17 23:29 10/21/17 00:04 Geodon Inj IM 20 mg ONCE PRN Administration Agitation Protocol - Patient Studies Lab Studies: Lab Studies 10/21/17 10/21/17 Range/Units 06:00 06:00 WBC 6.2 (4.5-11.0) 10^3/ul RBC 4.05 (3.5-6.1) 10^6/uL Hgb 12.7 L (14.0-18.0) g/dL Hct 37.4 L (42.0-52.0) % MCV 92.3 (80.0-105.0) fl MCH 31.4 (25.0-35.0) pg MCHC 34.0 (31.0-37.0) g/dl RDW 12.7 (11.5-14.5) % Plt Count 137 (120.0-450.0) 10^3/uL MPV 10.5 (7.0-11.0) fl Gran % 51.5 (50.0-68.0) % Lymph % (Auto) 34.4 (22.0-35.0) % Boone % (Auto) 10.3 H (1.0-6.0) % Eos % (Auto) 3.2 (1.5-5.0) % Baso % (Auto) 0.6 (0.0-3.0) % Gran # 3.20 (1.4-6.5) Lymph # (Auto) 2.1 (1.2-3.4) [place] # (Auto) 0.6 (0.1-0.6) Eos # (Auto) 0.2 (0.0-0.7) Baso # (Auto) 0.04 (0.0-2.0) K/mm3 Sodium 144 (132-148) mmol/L Potassium 3.6 (3.6-5.0) mmol/L Chloride 109 H (98-107) mmol/L Carbon Dioxide 25 (21-33) mmol/L Anion Gap 14 (10-20) BUN 7 (7-21) mg/dL Creatinine 0.7 L (0.8-1.5) mg/dl Est GFR ( Amer) > 60 Est GFR (Non-Af Amer) > 60 Random Glucose 94 (70-110) mg/dL Calcium 8.8 (8.4-10.5) mg/dL Phosphorus 3.6 (2.5-4.5) mg/dL Magnesium 2.3 H (1.7-2.2) mg/dL Total Bilirubin 1.1 (0.2-1.3) mg/dL AST 82 H D (17-59) U/L ALT 132 H (7-56) U/L Alkaline Phosphatase 57 (38-126) U/L Total Protein 7.4 (5.8-8.3) g/dL Albumin 4.3 (3.0-4.8) g/dL Globulin 3.1 gm/dL Albumin/Globulin Ratio 1.4 (1.1-1.8) Laboratory Results - last 24 hr 10/21/17 10/21/17 06:00 06:00 WBC 6.2 RBC 4.05 Hgb 12.7 L Hct 37.4 L MCV 92.3 MCH 31.4 MCHC 34.0 RDW 12.7 Plt Count 137 MPV 10.5 Gran % 51.5 Lymph % (Auto) 34.4 Boone % (Auto) 10.3 H Eos % (Auto) 3.2 Baso % (Auto) 0.6 Gran # 3.20 Lymph # (Auto) 2.1 Boone # (Auto) 0.6 Eos # (Auto) 0.2 Baso # (Auto) 0.04 Sodium 144 Potassium 3.6 Chloride 109 H Carbon Dioxide 25 Anion Gap 14 BUN 7 Creatinine 0.7 L Est GFR ( Amer) > 60 Est GFR (Non-Af Amer) > 60 Random Glucose 94 Calcium 8.8 Phosphorus 3.6 Magnesium 2.3 H Total Bilirubin 1.1 AST 82 H D ALT 132 H Alkaline Phosphatase 57 Total Protein 7.4 Albumin 4.3 Globulin 3.1 Albumin/Globulin Ratio 1.4 Review of Systems - Review of Systems All systems: reviewed and no additional remarkable complaints except Critical Care Progress Note - Nutrition Nutrition: Nutrition Category Date Time Status Heart Healthy Diet [DIET] Diets 10/18/17 Dinner Ordered Assessment/Plan - Assessment and Plan (Free Text) Assessment: 56 year old male with PMHx of CAD (1 stent), Alcohol abuse, Depression, HLD, Paroxysmal afib (not on AC 2/2 non-compliance and fall risk), HTN [place] [facility]h withdrawal started on Precedex ggt. Neuro: -Currently on precedex ggt -Ativan 2 q2 IV prn and 2q6 mervat, -4-point restraints due to violent behavior -seizure precautions -CIWA protocol Pulm -maintain SPO2 > 90 % -2 L NC as needed -aspiration precautions Cardio: -maintain MAP > 65 -continue Metoprolol BID, Norvasc, ASA, and prn hydralazine for hx of CAD and HTN GI: -NPO except meds -Protonix for GI ppx -Cont to trend LFTs Renal: -monitor and replete electrolytes as needed -maintain euvolemia -avoid nephrotoxic drugs Heme: -Monitor H/H -Not on AC for Afib due to EtOH and non-compliance ID: - No leukocytosis or fevers - continue to monitor Endo: -Maintain euglycemia (BG 140 - 180) Case and plan was reviewed and discussed in detail with Dr Jones. <Hari Jones - Last Filed: 10/21/17 11:32> CCU Objective - Vital Signs / Intake & Output Vital Signs (Last 4 hours): Vital Signs Temp Pulse Resp BP Pulse Ox 10/21/17 11:29 97.9 F 124 H 23 151/94 H 97 10/21/17 10:00 78 10/21/17 09:04 99 H 178/106 H Intake and Output (Last 8hrs): Intake & Output 10/20/17 10/21/17 10/21/17 22:59 06:59 14:59 Intake Total 1050 1940 Output Total 500 500 Balance 550 1440 Weight 170 lb Intake: IV 750 1440 Right Upper arm 750 1440 Oral 300 500 Output: Urine 500 500 Urethral (Thibodeaux) 500 Urine, Voided 500 Other: # Bowel Movements 0 - Medications Active Medications: Active Medications Generic Name Dose Route Start Last Admin Trade Name Freq PRN Reason Stop Dose Admin Amlodipine Besylate 10 mg 10/19/17 13:30 10/21/17 09:04 Norvasc PO 10 mg DAILY MERVAT Administration Aspirin 81 mg 10/19/17 10:00 10/21/17 09:04 Ecotrin PO 81 mg DAILY MERVAT Administration Calcium Carbonate 600 mg 10/19/17 10:00 10/21/17 09:04 Caltrate PO 600 mg BID MERVAT Administration Enoxaparin Sodium 40 mg 10/19/17 10:00 10/21/17 09:05 Lovenox SC 40 mg DAILY MERVAT Administration Protocol Folic Acid 1 mg 10/19/17 10:00 10/21/17 09:04 Folic Acid PO 1 mg DAILY MERVAT Administration Hydralazine HCl 10 mg 10/19/17 13:06 10/20/17 05:51 Apresoline IVP 10 mg Q6 PRN Administration SBP > 160 Potassium Chloride 20 meq/ 1,010 mls @ 125 mls/hr 10/19/17 13:45 10/21/17 09: 04 Sodium Chloride IV 125 mls/hr .Q8H5M MERVAT Administration Dexmedetomidine HCl 400 mcg in 100 mls @ 3.856 mls/hr 10/21/17 02:04 08:05 Precedex 400mcg/100ml IV 0.2 mcg/kg/hr .Q24H PRN 3.856 mls/hr Symptoms of alcohol withdrawl Administration Protocol 0.2 MCG/KG/HR Lorazepam 2 mg 10/19/17 10:02 10/21/17 10:21 Ativan IVP 2 mg Q2H PRN Administration alcohol withdrawals Protocol Lorazepam 6 mg 10/20/17 23:29 Ativan IM ONCE PRN withdrawal Protocol Lorazepam 2 mg 10/21/17 03:30 10/21/17 10:28 Ativan IVP 2 mg Q6H MERVAT Administration Protocol Metoprolol Tartrate 50 mg 10/18/17 18:00 10/21/17 09:04 Lopressor PO 50 mg BID MERVAT Administration Multivitamins/Minerals 1 tab 10/20/17 08:00 10/21/17 08:08 Therapeutic-M Tab PO 1 tab 0800 MERVAT Administration Ondansetron HCl 4 mg 10/18/17 17:40 Zofran Inj IVP Q6H PRN Nausea/Vomiting Pantoprazole Sodium 40 mg 10/20/17 07:30 10/21/17 08:07 Protonix Ec Tab PO 40 mg ACB MERVAT Administration Thiamine HCl 100 mg 10/19/17 10:00 10/21/17 09:04 Vitamin B1 Tab PO 100 mg DAILY MERVAT Administration Valsartan 320 mg 10/19/17 13:30 10/21/17 09:04 Diovan PO 320 mg DAILY MERVAT Administration Ziprasidone 20 mg 10/20/17 23:29 10/21/17 00:04 Geodon Inj IM 20 mg ONCE PRN Administration Agitation Protocol - Patient Studies Lab Studies: Lab Studies 10/21/17 10/21/17 Range/Units 06:00 06:00 WBC 6.2 (4.5-11.0) 10^3/ul RBC 4.05 (3.5-6.1) 10^6/uL Hgb 12.7 L (14.0-18.0) g/dL Hct 37.4 L (42.0-52.0) % MCV 92.3 (80.0-105.0) fl MCH 31.4 (25.0-35.0) pg MCHC 34.0 (31.0-37.0) g/dl RDW 12.7 (11.5-14.5) % Plt Count 137 (120.0-450.0) 10^3/uL MPV 10.5 (7.0-11.0) fl Gran % 51.5 (50.0-68.0) % Lymph % (Auto) 34.4 (22.0-35.0) % Boone % (Auto) 10.3 H (1.0-6.0) % Eos % (Auto) 3.2 (1.5-5.0) % Baso % (Auto) 0.6 (0.0-3.0) % Gran # 3.20 (1.4-6.5) Lymph # (Auto) 2.1 (1.2-3.4) Boone # (Auto) 0.6 (0.1-0.6) Eos # (Auto) 0.2 (0.0-0.7) Baso # (Auto) 0.04 (0.0-2.0) K/mm3 Sodium 144 (132-148) mmol/L Potassium 3.6 (3.6-5.0) mmol/L Chloride 109 H (98-107) mmol/L Carbon Dioxide 25 (21-33) mmol/L Anion Gap 14 (10-20) BUN 7 (7-21) mg/dL Creatinine 0.7 L (0.8-1.5) mg/dl Est GFR ( Amer) > 60 Est GFR (Non-Af Amer) > 60 Random Glucose 94 (70-110) mg/dL Calcium 8.8 (8.4-10.5) mg/dL Phosphorus 3.6 (2.5-4.5) mg/dL Magnesium 2.3 H (1.7-2.2) mg/dL Total Bilirubin 1.1 (0.2-1.3) mg/dL AST 82 H D (17-59) U/L ALT 132 H (7-56) U/L Alkaline Phosphatase 57 (38-126) U/L Total Protein 7.4 (5.8-8.3) g/dL Albumin 4.3 (3.0-4.8) g/dL Globulin 3.1 gm/dL Albumin/Globulin Ratio 1.4 (1.1-1.8) Laboratory Results - last 24 hr 10/21/17 10/21/17 06:00 06:00 WBC 6.2 RBC 4.05 Hgb 12.7 L Hct 37.4 L MCV 92.3 MCH 31.4 MCHC 34.0 RDW 12.7 Plt Count 137 MPV 10.5 Gran % 51.5 Lymph % (Auto) 34.4 Boone % (Auto) 10.3 H Eos % (Auto) 3.2 Baso % (Auto) 0.6 Gran # 3.20 Lymph # (Auto) 2.1 Boone # (Auto) 0.6 Eos # (Auto) 0.2 Baso # (Auto) 0.04 Sodium 144 Potassium 3.6 Chloride 109 H Carbon Dioxide 25 Anion Gap 14 BUN 7 Creatinine 0.7 L Est GFR ( Amer) > 60 Est GFR (Non-Af Amer) > 60 Random Glucose 94 Calcium 8.8 Phosphorus 3.6 Magnesium 2.3 H Total Bilirubin 1.1 AST 82 H D ALT 132 H Alkaline Phosphatase 57 Total Protein 7.4 Albumin 4.3 Globulin 3.1 Albumin/Globulin Ratio 1.4 Critical Care Progress Note - Nutrition Nutrition: Nutrition Category Date Time Status Heart Healthy Diet [DIET] Diets 10/18/17 Dinner Ordered Assessment/Plan - Assessment and Plan (Free Text) Assessment: Patient seen and examined on rounds with resident agree with note with following additions/exceptions: Patient is 6 year old male with PMHx of CAD with stent, ETOH abuse, Depression, HLD, Paroxysmal afib (not on AC 2/2 non-compliance and fall risk), HTN [place] [facility] [place] withdrawal, transferred from floor for precedex drip. Currently afebrile, HD stable, comfortable in NAD, calm, appropriate EtOH withdrawal PAF Recommend: - supp o2 as needed - follow up cultures - BB - BP control - PRecedex Drip - Ativan PRN - MVT, Thiamine, Folic Acid - GI ppx - DVT ppx - Monitor in MICU
--- NOTE | 2017-10-21 12:18 | CP.PCM.PN ---
<Dallas Goldman - Last Filed: 10/21/17 12:10> Subjective - Date & Time of Evaluation Date of Evaluation: 10/21/17 Time of Evaluation: 12:10 - Subjective Subjective: Medicine Progress Note Pt seen and examined at bedside. No acute overnight events. Pt agitaged overnight, requiring ICU admission with Precedex drip. Patient is on 4 point restraints. Patient appears to be confused as he does not recall the events leading up to his ICU admission. ROS limited due to patients current mental status. Objective - Vital Signs/Intake and Output Vital Signs (last 24 hours): Temp Pulse Resp BP Pulse Ox 97.9 F 124 H 23 151/94 H 97 10/21/17 11:29 10/21/17 11:29 10/21/17 11:29 10/21/17 11:29 10/21/17 11:29 Intake and Output: 10/21/17 10/21/17 06:59 18:59 Intake Total 1050 1940 Output Total 500 500 Balance 550 1440 - Medications Medications: Current Medications Amlodipine Besylate (Norvasc) 10 mg PO DAILY [facility] Last Admin: 10/21/17 09:04 Dose: 10 mg Aspirin (Ecotrin) 81 mg PO DAILY [facility] Last Admin: 10/21/17 09:04 Dose: 81 mg Calcium Carbonate (Caltrate) 600 mg PO BID [facility] Last Admin: 10/21/17 09:04 Dose: 600 mg Enoxaparin Sodium (Lovenox) 40 mg SC DAILY [facility] PRN Reason: Protocol Last Admin: 10/21/17 09:05 Dose: 40 mg Folic Acid (Folic Acid) 1 mg PO DAILY [facility] Last Admin: 10/21/17 09:04 Dose: 1 mg Hydralazine HCl (Apresoline) 10 mg IVP Q6 PRN PRN Reason: SBP > 160 Last Admin: 10/20/17 05:51 Dose: 10 mg Potassium Chloride 20 meq/ (Sodium Chloride) 1,010 mls @ 125 mls/hr IV .Q8H5M [facility] Last Admin: 10/21/17 09:04 Dose: 125 mls/hr Dexmedetomidine HCl (Precedex 400mcg/100ml) 400 mcg in 100 mls @ 3.856 mls/hr IV .Q24H PRN; Protocol; 0.2 MCG/KG/HR PRN Reason: Symptoms of alcohol withdrawl Last Admin: 10/21/17 08:05 Dose: 0.2 mcg/kg/hr, 3.856 mls/hr Lorazepam (Ativan) 2 mg IVP Q2H PRN; Protocol PRN Reason: alcohol withdrawals Last Admin: 10/21/17 10:21 Dose: 2 mg Lorazepam (Ativan) 6 mg IM ONCE PRN; Protocol PRN Reason: withdrawal Lorazepam (Ativan) 2 mg IVP Q6H MERVAT PRN Reason: Protocol Last Admin: 10/21/17 10:28 Dose: 2 mg Metoprolol Tartrate (Lopressor) 50 mg PO BID [facility] Last Admin: 10/21/17 09:04 Dose: 50 mg Multivitamins/Minerals (Therapeutic-M Tab) 1 tab PO 0800 [facility] Last Admin: 10/21/17 08:08 Dose: 1 tab Ondansetron HCl (Zofran Inj) 4 mg IVP Q6H PRN PRN Reason: Nausea/Vomiting Pantoprazole Sodium (Protonix Ec Tab) 40 mg PO ACB [facility] Last Admin: 10/21/17 08:07 Dose: 40 mg Thiamine HCl (Vitamin B1 Tab) 100 mg PO DAILY [facility] Last Admin: 10/21/17 09:04 Dose: 100 mg Valsartan (Diovan) 320 mg PO DAILY [facility] Last Admin: 10/21/17 09:04 Dose: 320 mg Ziprasidone (Geodon Inj) 20 mg IM ONCE PRN; Protocol PRN Reason: Agitation Last Admin: 10/21/17 00:04 Dose: 20 mg - Labs Labs: 10/21/17 06:00 10/21/17 06:00 PT 11.4 SECONDS (9.4-12.5) 10/18/17 13:00 INR 1.00 (0.93-1.08) 10/18/17 13:00 APTT 26.8 Seconds (25.1-36.5) 10/18/17 13:00 - Constitutional Appears: No Acute Distress - Head Exam Head Exam: NORMAL INSPECTION - Eye Exam Eye Exam: Normal appearance - ENT Exam ENT Exam: Normal Exam - Neck Exam Neck Exam: Normal Inspection - Respiratory Exam Respiratory Exam: Clear to Ausculation Bilateral. absent: Rales, Rhonchi, Wheezes - Cardiovascular Exam Cardiovascular Exam: Tachycardia, +S1, +S2. absent: Gallop, Rubs, Murmur - GI/Abdominal Exam GI & Abdominal Exam: Soft. absent: Distended, Guarding, Tenderness, Rebound - Extremities Exam Extremities Exam: Normal Inspection - Back Exam Back Exam: NORMAL INSPECTION - Neurological Exam Neurological Exam: Alert, Awake. absent: Oriented x3 - Psychiatric Exam Psychiatric exam: Agitated - Skin Skin Exam: Dry, Intact, Normal Color, Warm Assessment and Plan - Assessment and Plan (Free Text) Assessment: Patient is a 56 year old male with past medical history of CAD (1 stent), Alcohol abuse, Depression, HLD, Paroxysmal afib (not on AC 2/2 non-compliance and fall risk), HTN presents to [facility] [place] with acute alcohol intoxication and depression. Plan: 1) Alcohol withdrawal -Alcohol 397 on admission -Precedex gtt -Ativan 2mg Q2H IV prn, Ativan 2mg IV Q6H mervat; avoid librium due to LFT elevations -2 point restraints -Zofran prn nausea -Utox negative -CIWA protocol; last night 34, AM score 0 -Aspiration precautions, seizure precautions 2) History of Depression/History of suicidal ideation -Patient states that he is depressed and needs help, expressed SI overnight s/p CODE STAR but now denies to psych -Psych on consult, help appreciated; 1:1 d/c, pt denies on Zoloft at home now so zoloft d/c, may be candidate for naltrexone 3) Elevated Liver Enzymes - improved -AST/ALT decreased from 299/270 on admit to 82/132 -History of positive Hepatitis A ab -Will recheck Hepatitis panel; panel negative -Abdominal US ordered: notable for sludge without acute cholecystitis, non- specific heterogenous enhancement of liver -Avoid Hepatotoxic medications (Lipitor on hold) -Continue to monitor 4) Anion gap metabolic acidosis - improved -Anion 21 on admission -Likely secondary to alcohol -Continue IV fluids -Continue to monitor gap 5) History of Paraoxysmal Afib -Not on anticoagulation due to non-compliance -Metoprolol 50mg PO BID with hold parameters -EKG in ED showing sinus tachy 102, possible left atrial enlargement; RRR today 6) HLD -continue to hold statin due to LFT elevations 7) CAD -Troponin negative x 1 -Continue ASA 81mg PO daily 8) Leukocytosis - resolved -CXR showing no active disease -UA trace blood -WBC 11.5 on admission, 5.6 today -rapid flu and procal negative 9) History of Hypertension -Home medications: HTCZ, Metoprolol, Norvasc, Diovan -Restarted home norvasc and diovan -Can restart remaining home medications as needed, PRN Hydralazine for SBP > 160 10) Elevated CPK -IV fluid hydration -CPK 889 -Continue to monitor 11) Bilateral lower extremity pain -Lower extremity duplex ordered, negative for DVT Dispo: Transfered to ICU for precedex gtt, drip management per FEN: HHD, NS + 20 mEq KCl per bag 125cc/hr, Ca supplementation Access: Peripheral IV Consults: Psych Ppx: Protonix for GI, SCDs for DVT Patient seen, reviewed, and discussed with attending, Dr. Yeung. Ba Goldman, PGY1 <Mike Yeung - Last Filed: 10/21/17 16:36> Objective - Vital Signs/Intake and Output Vital Signs (last 24 hours): Temp Pulse Resp BP Pulse Ox 97.9 F 124 H 23 151/94 H 97 10/21/17 11:29 10/21/17 11:29 10/21/17 11:29 10/21/17 11:29 10/21/17 11:29 Intake and Output: 10/21/17 10/21/17 06:59 18:59 Intake Total 1050 1940 Output Total 500 500 Balance 550 1440 - Medications Medications: Current Medications Amlodipine Besylate (Norvasc) 10 mg PO DAILY [facility] Last Admin: 10/21/17 09:04 Dose: 10 mg Aspirin (Ecotrin) 81 mg PO DAILY [facility] Last Admin: 10/21/17 09:04 Dose: 81 mg Calcium Carbonate (Caltrate) 600 mg PO BID [facility] Last Admin: 10/21/17 09:04 Dose: 600 mg Enoxaparin Sodium (Lovenox) 40 mg SC DAILY [facility] PRN Reason: Protocol Last Admin: 10/21/17 09:05 Dose: 40 mg Folic Acid (Folic Acid) 1 mg PO DAILY [facility] Last Admin: 10/21/17 09:04 Dose: 1 mg Hydralazine HCl (Apresoline) 10 mg IVP Q6 PRN PRN Reason: SBP > 160 Last Admin: 10/20/17 05:51 Dose: 10 mg Potassium Chloride 20 meq/ (Sodium Chloride) 1,010 mls @ 125 mls/hr IV .Q8H5M [facility] Last Admin: 10/21/17 09:04 Dose: 125 mls/hr Dexmedetomidine HCl (Precedex 400mcg/100ml) 400 mcg in 100 mls @ 3.856 mls/hr IV .Q24H PRN; Protocol; 0.2 MCG/KG/HR PRN Reason: Symptoms of alcohol withdrawl Last Admin: 10/21/17 08:05 Dose: 0.2 mcg/kg/hr, 3.856 mls/hr Insulin Human Regular (Humulin R Low) 0 units SC ACHS MERVAT PRN Reason: Protocol Lorazepam (Ativan) 2 mg IVP Q2H PRN; Protocol PRN Reason: alcohol withdrawals Last Admin: 10/21/17 10:21 Dose: 2 mg Lorazepam (Ativan) 6 mg IM ONCE PRN; Protocol PRN Reason: withdrawal Lorazepam (Ativan) 2 mg IVP Q6H MERVAT PRN Reason: Protocol Last Admin: 10/21/17 10:28 Dose: 2 mg Metoprolol Tartrate (Lopressor) 50 mg PO BID [facility] Last Admin: 10/21/17 09:04 Dose: 50 mg Multivitamins/Minerals (Therapeutic-M Tab) 1 tab PO 0800 [facility] Last Admin: 10/21/17 08:08 Dose: 1 tab Ondansetron HCl (Zofran Inj) 4 mg IVP Q6H PRN PRN Reason: Nausea/Vomiting Pantoprazole Sodium (Protonix Ec Tab) 40 mg PO ACB [facility] Last Admin: 10/21/17 08:07 Dose: 40 mg Thiamine HCl (Vitamin B1 Tab) 100 mg PO DAILY [facility] Last Admin: 10/21/17 09:04 Dose: 100 mg Valsartan (Diovan) 320 mg PO DAILY [facility] Last Admin: 10/21/17 09:04 Dose: 320 mg Ziprasidone (Geodon Inj) 20 mg IM ONCE PRN; Protocol PRN Reason: Agitation Last Admin: 10/21/17 00:04 Dose: 20 mg - Labs Labs: 10/21/17 06:00 10/21/17 06:00 PT 11.4 SECONDS (9.4-12.5) 10/18/17 13:00 INR 1.00 (0.93-1.08) 10/18/17 13:00 APTT 26.8 Seconds (25.1-36.5) 10/18/17 13:00 Attending/Attestation - Attestation I have personally seen and examined this patient.: Yes I have fully participated in the care of the patient.: Yes I have reviewed all pertinent clinical information, including history, physical exam and plan: Yes Notes (Text): I have seen and examined the patient at bedside. Agree with the above note. Patient needs close monitoring in ICU. Upon discharge patient will follow up with Dr Gomez.
[2017-10-21] MEDS ORDERED: Insulin Detemir 100 units/ml Vial (Levemir) SC ONE (13:57)
[2017-10-21] MEDS: Insulin Reg-LOW-Coverage SC SCH ×2 (17:13→22:48)
[2017-10-22 06:51] LABS: BASO # 0.03 K/mm3 (0.0-2.0); BASO % 0.4 % (0.0-3.0); EOS # 0.3 (0.0-0.7); EOS % 3.7 % (1.5-5.0); GRAN # 4.38 (1.4-6.5); GRAN % 59.7 % (50.0-68.0); HEMOGLOBIN 13.6 g/dL (14.0-18.0); LYMPH % 27.8 % (22.0-35.0); MEAN CELL VOLUME 93.5 fl (80.0-105.0); MEAN CORPUSCULAR HEMOGLOBIN 31.6 pg (25.0-35.0); MEAN CORPUSCULAR HGB CONC 33.8 g/dl (31.0-37.0); MEAN PLATELET VOLUME 10.6 fl (7.0-11.0); MONO # 0.6 (0.1-0.6); MONO % 8.4 % (1.0-6.0); RBC 4.3 10^6/uL (3.5-6.1); RED CELL DISTRIBUTION WIDTH 13.1 % (11.5-14.5); WHITE BLOOD COUNT 7.3 10^3/ul (4.5-11.0)
[2017-10-22 07:14] LABS: ALB/GLOB RATIO 1.3 (1.1-1.8); ALBUMIN 4.1 g/dL (3.0-4.8); ALT/SGPT 102 U/L (7-56); AST/SGOT 58 U/L (17-59); BLOOD UREA NITROGEN 19 mg/dL (7-21); CALCIUM 9.4 mg/dL (8.4-10.5); GFR AFRICAN-AMERICAN > 60; GFR NON-AFRICAN AMERICAN > 60
[2017-10-22] MEDS: Insulin Reg-LOW-Coverage SC SCH ×4 (07:30→22:07)
--- NOTE | 2017-10-22 08:10 | CP.CCUPN ---
<Calvin Perez - Last Filed: 10/22/17 12:24> CCU Subjective - Physician Review Subjective (Free Text): ICU consult note: Pt seen adn examined at bedside. No acute events overnight. Resting in bed comfortably. Currently off the Precedex ggt and 4 point restraint. No complaints. 12 Point ROS performed and neg other than stated above. CCU Objective - Vital Signs / Intake & Output Vital Signs (Last 4 hours): Vital Signs Pulse Resp BP Pulse Ox 10/22/17 07:40 67 18 100 10/22/17 07:30 73 16 99 10/22/17 07:20 73 27 H 98 10/22/17 07:10 72 21 100 10/22/17 07:00 73 21 112/71 98 10/22/17 06:50 73 18 99 10/22/17 06:49 75 22 98 10/22/17 06:20 76 21 97 10/22/17 06:10 66 16 93 L 10/22/17 06:00 70 14 95/59 L 93 L 10/22/17 05:50 66 16 95 10/22/17 05:40 66 16 95 10/22/17 05:30 60 14 96 10/22/17 05:20 63 15 94 L 10/22/17 05:10 63 15 95 10/22/17 05:00 64 14 88/51 L 96 10/22/17 04:50 64 15 95 10/22/17 04:40 64 16 93 L 10/22/17 04:30 62 15 94 L 10/22/17 04:20 64 16 95 10/22/17 04:10 63 16 96 Intake and Output (Last 8hrs): Intake & Output 10/21/17 10/22/17 10/22/17 22:59 06:59 14:59 Intake Total 1180 1020 Output Total 450 400 Balance 730 620 Intake: IV 850 520 Right Upper arm 720 500 Oral 330 500 Output: Urine 450 400 Urethral ([place]ibodeaux) 450 400 Other: # Bowel Movements 3 - Physical Exam Pupils: Positive for: PERRL Extroacular Muscles: Positive for: EOMI Conjunctiva: Positive for: Normal Ears: Positive for: Normal Mouth: Positive for: Moist Mucous Membranes Pharnyx: Positive for: Normal Nose (External): Positive for: Atraumatic Nose (Internal): Positive for: Normal Inspection Neck: Positive for: Normal Range of Motion Respiratory/Chest: Positive for: Clear to Auscultation Cardiovascular: Positive for: Regular Rate and Rhythm Abdomen: Negative for: Tenderness, Distention, Normal Bowel Sounds, Peritoneal Signs, Rebound, Guarding, McBurney's Point Tender, Rovsing's Sign Present, Hernias, Feeding Tubes, Ostomy Tubes, Mass/Organomegaly, Scars, Other Back: Positive for: Normal Inspection Upper Extremity: Positive for: Normal Inspection Lower Extremity: Positive for: Normal Inspection Neurological: Positive for: GCS=15, CN II-XII Intact, Speech Normal, Motor Func Grossly Intact Skin: Positive for: Warm, Normal Color Psychiatric: Positive for: Alert, Oriented x 3, Normal Insight, Normal Concentration, Anxious, Suicidal Ideation - Medications Active Medications: Active Medications Generic Name Dose Route Start Last Admin Trade Name Freq PRN Reason Stop Dose Admin Amlodipine Besylate 10 mg 10/19/17 13:30 10/21/17 09:04 Norvasc PO 10 mg DAILY MERVAT Administration Aspirin 81 mg 10/19/17 10:00 10/21/17 09:04 Ecotrin PO 81 mg DAILY MERVAT Administration Calcium Carbonate 600 mg 10/19/17 10:00 10/21/17 17:19 Caltrate PO 600 mg BID MERVAT Administration Enoxaparin Sodium 40 mg 10/19/17 10:00 10/21/17 09:05 Lovenox SC 40 mg DAILY MERVAT Administration Protocol Folic Acid 1 mg 10/19/17 10:00 10/21/17 09:04 Folic Acid PO 1 mg DAILY MERVAT Administration Hydralazine HCl 10 mg 10/19/17 13:06 10/20/17 05:51 Apresoline IVP 10 mg Q6 PRN Administration SBP > 160 Insulin Human Regular 0 units 10/21/17 16:30 10/21/17 22:48 Humulin R Low SC Not Given ACHS MEVRAT Protocol Lorazepam 2 mg 10/19/17 10:02 10/21/17 17:25 Ativan IVP 2 mg Q2H PRN Administration alcohol withdrawals Protocol Lorazepam 6 mg 10/20/17 23:29 Ativan IM ONCE PRN withdrawal Protocol Lorazepam 2 mg 10/21/17 03:30 10/22/17 03:53 Ativan IVP 2 mg Q6H MERVAT Administration Protocol Metoprolol Tartrate 50 mg 10/18/17 18:00 10/21/17 17:19 Lopressor PO 50 mg BID MERVAT Administration Multivitamins/Minerals 1 tab 10/20/17 08:00 10/21/17 08:08 Therapeutic-M Tab PO 1 tab 0800 MERVAT Administration Ondansetron HCl 4 mg 10/18/17 17:40 Zofran Inj IVP Q6H PRN Nausea/Vomiting Pantoprazole Sodium 40 mg 10/20/17 07:30 10/21/17 08:07 Protonix Ec Tab PO 40 mg ACB MERVAT Administration Thiamine HCl 100 mg 10/19/17 10:00 10/21/17 09:04 Vitamin B1 Tab PO 100 mg DAILY MERVAT Administration Valsartan 320 mg 10/19/17 13:30 10/21/17 09:04 Diovan PO 320 mg DAILY MERVAT Administration Ziprasidone 20 mg 10/20/17 23:29 10/21/17 00:04 Geodon Inj IM 20 mg ONCE PRN Administration Agitation Protocol - Patient Studies Lab Studies: Lab Studies 10/22/17 10/22/17 10/21/17 Range/Units 06:20 06:20 22:47 WBC 7.3 (4.5-11.0) 10^3/ul RBC 4.30 (3.5-6.1) 10^6/uL Hgb 13.6 L (14.0-18.0) g/dL Hct 40.2 L (42.0-52.0) % MCV 93.5 (80.0-105.0) fl MCH 31.6 (25.0-35.0) pg MCHC 33.8 (31.0-37.0) g/dl RDW 13.1 (11.5-14.5) % Plt Count 152 (120.0-450.0) 10^3/uL MPV 10.6 (7.0-11.0) fl Gran % 59.7 (50.0-68.0) % Lymph % (Auto) 27.8 (22.0-35.0) % [place] % (Auto) 8.4 H (1.0-6.0) % Eos % (Auto) 3.7 (1.5-5.0) % Baso % (Auto) 0.4 (0.0-3.0) % Gran # 4.38 (1.4-6.5) Lymph # (Auto) 2.0 (1.2-3.4) [place] # (Auto) 0.6 (0.1-0.6) Eos # (Auto) 0.3 (0.0-0.7) Baso # (Auto) 0.03 (0.0-2.0) K/mm3 Sodium 140 (132-148) mmol/L Potassium 4.4 (3.6-5.0) mmol/L Chloride 106 (98-107) mmol/L Carbon Dioxide 23 (21-33) mmol/L Anion Gap 14 (10-20) BUN 19 (7-21) mg/dL Creatinine 1.2 (0.8-1.5) mg/dl Est GFR ( Amer) > 60 Est GFR (Non-Af Amer) > 60 POC Glucose (mg/dL) 105 (65-110) mg/dL Random Glucose 101 (70-110) mg/dL Calcium 9.4 (8.4-10.5) mg/dL Phosphorus 4.3 (2.5-4.5) mg/dL Magnesium 2.6 H (1.7-2.2) mg/dL Total Bilirubin 0.9 (0.2-1.3) mg/dL AST 58 (17-59) U/L ALT 102 H (7-56) U/L Alkaline Phosphatase 56 (38-126) U/L Total Protein 7.2 (5.8-8.3) g/dL Albumin 4.1 (3.0-4.8) g/dL Globulin 3.1 gm/dL Albumin/Globulin Ratio 1.3 (1.1-1.8) Laboratory Results - last 24 hr 10/21/17 10/22/17 10/22/17 22:47 06:20 06:20 WBC 7.3 RBC 4.30 Hgb 13.6 L Hct 40.2 L MCV 93.5 MCH 31.6 MCHC 33.8 RDW 13.1 Plt Count 152 MPV 10.6 Gran % 59.7 Lymph % (Auto) 27.8 [place] % (Auto) 8.4 H Eos % (Auto) 3.7 Baso % (Auto) 0.4 Gran # 4.38 Lymph # (Auto) 2.0 [place] # (Auto) 0.6 Eos # (Auto) 0.3 Baso # (Auto) 0.03 Sodium 140 Potassium 4.4 Chloride 106 Carbon Dioxide 23 Anion Gap 14 BUN 19 Creatinine 1.2 Est GFR ( Amer) > 60 Est GFR (Non-Af Amer) > 60 POC Glucose (mg/dL) 105 Random Glucose 101 Calcium 9.4 Phosphorus 4.3 Magnesium 2.6 H Total Bilirubin 0.9 AST 58 ALT 102 H Alkaline Phosphatase 56 Total Protein 7.2 Albumin 4.1 Globulin 3.1 Albumin/Globulin Ratio 1.3 Fingerstick Blood Sugar Results: 108 Review of Systems - Review of Systems All systems: reviewed and no additional remarkable complaints except (HPI) Critical Care Progress Note - Nutrition Nutrition: Nutrition Category Date Time Status Heart Healthy Diet [DIET] Diets 10/21/17 Dinner Ordered Assessment/Plan - Assessment and Plan (Free Text) Assessment: 56 year old male with PMHx of CAD (1 stent), Alcohol abuse, Depression, HLD, Paroxysmal afib (not on AC 2/2 non-compliance and fall risk), HTN [place] [facility] [place] Etoh withdrawal started on Precedex ggt. Currently off the precedex ggt and 4 point restraint. Neuro: -Precedex drip is d/jennie -Ativan 2 q2 IV prn and 2q6 mervat, -seizure precautions -CIWA protocol Pulm -maintain SPO2 > 90 % -2 L NC as needed -aspiration precautions Cardio: -maintain MAP > 65 -continue Metoprolol BID, Norvasc, ASA, and prn hydralazine for hx of CAD and HTN GI: -HHD -Protonix for GI ppx -Cont to trend LFTs Renal: -Replete electrolytes as needed -Avoid nephrotoxic drugs Heme: -Monitor H/H -Not on AC for Afib due to EtOH and non-compliance ID: - No leukocytosis or fevers - continue to monitor Endo: -Maintain euglycemia (BG 140 - 180) GI/DVT ppx Case and plan was reviewed and discussed in detail with Dr Shay. <Bart Shay - Last Filed: 10/22/17 16:15> CCU Objective - Vital Signs / Intake & Output Vital Signs (Last 4 hours): Vital Signs Pulse Resp BP 10/22/17 14:20 88 20 10/22/17 14:10 97 H 25 H 10/22/17 14:00 95 H 18 10/22/17 13:50 91 H 20 10/22/17 13:40 79 14 10/22/17 13:30 77 15 10/22/17 13:20 79 16 10/22/17 13:10 78 16 10/22/17 13:04 88 20 101/76 10/22/17 13:00 79 18 10/22/17 12:50 87 13 10/22/17 12:40 85 23 10/22/17 12:30 83 10/22/17 12:29 84 23 Intake and Output (Last 8hrs): Intake & Output 10/22/17 10/22/17 10/22/17 06:59 14:59 22:59 Intake Total 1020 1830 Output Total 400 1700 Balance 620 130 Intake: IV 520 Right Upper arm 500 Oral 500 1830 Output: Urine 400 1700 Urethral (Thibodeaux) 400 Urine, Voided 1700 Other: # Bowel Movements 3 2 - Medications Active Medications: Active Medications Generic Name Dose Route Start Last Admin Trade Name Freq PRN Reason Stop Dose Admin Amlodipine Besylate 10 mg 10/19/17 13:30 10/22/17 09:14 Norvasc PO 10 mg DAILY MERVAT Administration Aspirin 81 mg 10/19/17 10:00 10/22/17 09:12 Ecotrin PO 81 mg DAILY MERVAT Administration Calcium Carbonate 600 mg 10/19/17 10:00 10/22/17 09:12 Caltrate PO 600 mg BID MERVAT Administration Enoxaparin Sodium 40 mg 10/19/17 10:00 10/22/17 09:14 Lovenox SC 40 mg DAILY MERVAT Administration Protocol Folic Acid 1 mg 10/19/17 10:00 10/22/17 09:12 Folic Acid PO 1 mg DAILY MERVAT Administration Hydralazine HCl 10 mg 10/19/17 13:06 10/20/17 05:51 Apresoline IVP 10 mg Q6 PRN Administration SBP > 160 Insulin Human Regular 0 units 10/21/17 16:30 10/22/17 11:30 Humulin R Low SC Not Given ACHS MERVAT Protocol Lorazepam 2 mg 10/19/17 10:02 10/21/17 17:25 Ativan IVP 2 mg Q2H PRN Administration alcohol withdrawals Protocol Lorazepam 6 mg 10/20/17 23:29 Ativan IM ONCE PRN withdrawal Protocol Lorazepam 2 mg 10/21/17 03:30 10/22/17 09:15 Ativan IVP 2 mg Q6H MERVAT Administration Protocol Metoprolol Tartrate 50 mg 10/18/17 18:00 10/22/17 09:13 Lopressor PO 50 mg BID MERVAT Administration Multivitamins/Minerals 1 tab 10/20/17 08:00 10/22/17 09:15 Therapeutic-M Tab PO 1 tab 0800 MERVAT Administration Nicotine 1 patch 10/22/17 10:00 10/22/17 10:09 Nicoderm Cq TD 1 patch DAILY MERVAT Administration Ondansetron HCl 4 mg 10/18/17 17:40 Zofran Inj IVP Q6H PRN Nausea/Vomiting Pantoprazole Sodium 40 mg 10/20/17 07:30 10/22/17 09:14 Protonix Ec Tab PO 40 mg ACB MERVAT Administration Thiamine HCl 100 mg 10/19/17 10:00 10/22/17 09:14 Vitamin B1 Tab PO 100 mg DAILY MERVAT Administration Valsartan 320 mg 10/19/17 13:30 10/21/17 09:04 Diovan PO 320 mg DAILY MERVAT Administration Ziprasidone 20 mg 10/20/17 23:29 10/21/17 00:04 Geodon Inj IM 20 mg ONCE PRN Administration Agitation Protocol - Patient Studies Lab Studies: Microbiology Studies 10/21/17 02:00 MRSA Culture (Admit) - Final Naris MRSA NOT DETECTED Lab Studies 10/22/17 10/22/17 10/22/17 Range/Units 11:29 07:41 06:30 WBC (4.5-11.0) 10^3/ul RBC (3.5-6.1) 10^6/uL Hgb (14.0-18.0) g/dL Hct (42.0-52.0) % MCV (80.0-105.0) fl MCH (25.0-35.0) pg MCHC (31.0-37.0) g/dl RDW (11.5-14.5) % Plt Count (120.0-450.0) 10^3/uL MPV (7.0-11.0) fl Gran % (50.0-68.0) % Lymph % (Auto) (22.0-35.0) % [place] % (Auto) (1.0-6.0) % Eos % (Auto) (1.5-5.0) % Baso % (Auto) (0.0-3.0) % Gran # (1.4-6.5) Lymph # (Auto) (1.2-3.4) [place] # (Auto) (0.1-0.6) Eos # (Auto) (0.0-0.7) Baso # (Auto) (0.0-2.0) K/mm3 Sodium (132-148) mmol/L Potassium (3.6-5.0) mmol/L Chloride (98-107) mmol/L Carbon Dioxide (21-33) mmol/L Anion Gap (10-20) BUN (7-21) mg/dL Creatinine (0.8-1.5) mg/dl Est GFR ( Amer) Est GFR (Non-Af Amer) POC Glucose (mg/dL) 75 108 (65-110) mg/dL Random Glucose (70-110) mg/dL Calcium (8.4-10.5) mg/dL Phosphorus (2.5-4.5) mg/dL Magnesium (1.7-2.2) mg/dL Total Bilirubin (0.2-1.3) mg/dL AST (17-59) U/L ALT (7-56) U/L Alkaline Phosphatase (38-126) U/L Total Creatine Kinase 141 (35-230) U/L Total Protein (5.8-8.3) g/dL Albumin (3.0-4.8) g/dL Globulin gm/dL Albumin/Globulin Ratio (1.1-1.8) 10/22/17 10/22/17 10/21/17 Range/Units 06:20 06:20 22:47 WBC 7.3 (4.5-11.0) 10^3/ul RBC 4.30 (3.5-6.1) 10^6/uL Hgb 13.6 L (14.0-18.0) g/dL Hct 40.2 L (42.0-52.0) % MCV 93.5 (80.0-105.0) fl MCH 31.6 (25.0-35.0) pg MCHC 33.8 (31.0-37.0) g/dl RDW 13.1 (11.5-14.5) % Plt Count 152 (120.0-450.0) 10^3/uL MPV 10.6 (7.0-11.0) fl Gran % 59.7 (50.0-68.0) % Lymph % (Auto) 27.8 (22.0-35.0) % [place] % (Auto) 8.4 H (1.0-6.0) % Eos % (Auto) 3.7 (1.5-5.0) % Baso % (Auto) 0.4 (0.0-3.0) % Gran # 4.38 (1.4-6.5) Lymph # (Auto) 2.0 (1.2-3.4) [place] # (Auto) 0.6 (0.1-0.6) Eos # (Auto) 0.3 (0.0-0.7) Baso # (Auto) 0.03 (0.0-2.0) K/mm3 Sodium 140 (132-148) mmol/L Potassium 4.4 (3.6-5.0) mmol/L Chloride 106 (98-107) mmol/L Carbon Dioxide 23 (21-33) mmol/L Anion Gap 14 (10-20) BUN 19 (7-21) mg/dL Creatinine 1.2 (0.8-1.5) mg/dl Est GFR ( Amer) > 60 Est GFR (Non-Af Amer) > 60 POC Glucose (mg/dL) 105 (65-110) mg/dL Random Glucose 101 (70-110) mg/dL Calcium 9.4 (8.4-10.5) mg/dL Phosphorus 4.3 (2.5-4.5) mg/dL Magnesium 2.6 H (1.7-2.2) mg/dL Total Bilirubin 0.9 (0.2-1.3) mg/dL AST 58 (17-59) U/L ALT 102 H (7-56) U/L Alkaline Phosphatase 56 (38-126) U/L Total Creatine Kinase (35-230) U/L Total Protein 7.2 (5.8-8.3) g/dL Albumin 4.1 (3.0-4.8) g/dL Globulin 3.1 gm/dL Albumin/Globulin Ratio 1.3 (1.1-1.8) Laboratory Results - last 24 hr 10/21/17 10/22/17 10/22/17 22:47 06:20 06:20 WBC 7.3 RBC 4.30 Hgb 13.6 L Hct 40.2 L MCV 93.5 MCH 31.6 MCHC 33.8 RDW 13.1 Plt Count 152 MPV 10.6 Gran % 59.7 Lymph % (Auto) 27.8 [place] % (Auto) 8.4 H Eos % (Auto) 3.7 Baso % (Auto) 0.4 Gran # 4.38 Lymph # (Auto) 2.0 [place] # (Auto) 0.6 Eos # (Auto) 0.3 Baso # (Auto) 0.03 Sodium 140 Potassium 4.4 Chloride 106 Carbon Dioxide 23 Anion Gap 14 BUN 19 Creatinine 1.2 Est GFR ( Amer) > 60 Est GFR (Non-Af Amer) > 60 POC Glucose (mg/dL) 105 Random Glucose 101 Calcium 9.4 Phosphorus 4.3 Magnesium 2.6 H Total Bilirubin 0.9 AST 58 ALT 102 H Alkaline Phosphatase 56 Total Creatine Kinase Total Protein 7.2 Albumin 4.1 Globulin 3.1 Albumin/Globulin Ratio 1.3 10/22/17 10/22/17 10/22/17 06:30 07:41 11:29 WBC RBC Hgb Hct MCV MCH MCHC RDW Plt Count MPV Gran % Lymph % (Auto) [place] % (Auto) Eos % (Auto) Baso % (Auto) Gran # Lymph # (Auto) [place] # (Auto) Eos # (Auto) Baso # (Auto) Sodium Potassium Chloride Carbon Dioxide Anion Gap BUN Creatinine Est GFR ( Amer) Est GFR (Non-Af Amer) POC Glucose (mg/dL) 108 75 Random Glucose Calcium Phosphorus Magnesium Total Bilirubin AST ALT Alkaline Phosphatase Total Creatine Kinase 141 Total Protein Albumin Globulin Albumin/Globulin Ratio Critical Care Progress Note - Nutrition Nutrition: Nutrition Category Date Time Status Heart Healthy Diet [DIET] Diets 10/21/17 Dinner Ordered Attending/Attestation - Attestation I have personally seen and examined this patient.: Yes I have fully participated in the care of the patient.: Yes I have reviewed all pertinent clinical information: Yes Notes (Text): 10/22/17 16:[address] Shay note
[2017-10-22] MEDS: Enoxaparin 40 mg Syringe SC SCH (09:14)
[2017-10-22] MEDS: Pantoprazole 40 mg EC Tab PO SCH (09:14)
[2017-10-22] MEDS: Multivitamin With Minerals Tab PO SCH (09:15)
--- NOTE | 2017-10-22 11:06 | CP.PCM.PN ---
<Villa Espinoza - Last Filed: 10/22/17 10:59> Subjective - Date & Time of Evaluation Date of Evaluation: 10/22/17 Time of Evaluation: 07:00 - Subjective Subjective: IM Progress Note for Hospitalist Service Patient seen and examined at bedside in ICU. Overnight, no acute events reported. Now off precedex drip. AAOx3 (self, location, year) on exam this AM. Will be transferred back to Med/Surg as per ICU team. Denies chest pain, shortness of breath, emesis. Objective - Vital Signs/Intake and Output Vital Signs (last 24 hours): Temp Pulse Resp BP Pulse Ox 98.2 F 96 H 18 120/70 100 10/21/17 18:00 10/22/17 09:13 10/22/17 07:40 10/22/17 09:14 10/22/17 07:40 Intake and Output: 10/22/17 10/22/17 06:59 18:59 Intake Total 2100 Output Total 850 Balance 1250 - Medications Medications: Current Medications Amlodipine Besylate (Norvasc) 10 mg PO DAILY [facility] Last Admin: 10/22/17 09:14 Dose: 10 mg Aspirin (Ecotrin) 81 mg PO DAILY [facility] Last Admin: 10/22/17 09:12 Dose: 81 mg Calcium Carbonate (Caltrate) 600 mg PO BID [facility] Last Admin: 10/22/17 09:12 Dose: 600 mg Enoxaparin Sodium (Lovenox) 40 mg SC DAILY [facility] PRN Reason: Protocol Last Admin: 10/22/17 09:14 Dose: 40 mg Folic Acid (Folic Acid) 1 mg PO DAILY [facility] Last Admin: 10/22/17 09:12 Dose: 1 mg Hydralazine HCl (Apresoline) 10 mg IVP Q6 PRN PRN Reason: SBP > 160 Last Admin: 10/20/17 05:51 Dose: 10 mg Insulin Human Regular (Humulin R Low) 0 units SC ACHS [facility] PRN Reason: Protocol Last Admin: 10/22/17 07:30 Dose: Not Given Lorazepam (Ativan) 2 mg IVP Q2H PRN; Protocol PRN Reason: alcohol withdrawals Last Admin: 10/21/17 17:25 Dose: 2 mg Lorazepam (Ativan) 6 mg IM ONCE PRN; Protocol PRN Reason: withdrawal Lorazepam (Ativan) 2 mg IVP Q6H [facility] PRN Reason: Protocol Last Admin: 10/22/17 09:15 Dose: 2 mg Metoprolol Tartrate (Lopressor) 50 mg PO BID [facility] Last Admin: 10/22/17 09:13 Dose: 50 mg Multivitamins/Minerals (Therapeutic-M Tab) 1 tab PO 0800 [facility] Last Admin: 10/22/17 09:15 Dose: 1 tab Nicotine (Nicoderm Cq) 1 patch TD DAILY [facility] Last Admin: 10/22/17 10:09 Dose: 1 patch Ondansetron HCl (Zofran Inj) 4 mg IVP Q6H PRN PRN Reason: Nausea/Vomiting Pantoprazole Sodium (Protonix Ec Tab) 40 mg PO ACB [facility] Last Admin: 10/22/17 09:14 Dose: 40 mg Thiamine HCl (Vitamin B1 Tab) 100 mg PO DAILY [facility] Last Admin: 10/22/17 09:14 Dose: 100 mg Valsartan (Diovan) 320 mg PO DAILY [facility] Last Admin: 10/21/17 09:04 Dose: 320 mg Ziprasidone (Geodon Inj) 20 mg IM ONCE PRN; Protocol PRN Reason: Agitation Last Admin: 10/21/17 00:04 Dose: 20 mg - Labs Labs: 10/22/17 06:20 10/22/17 06:20 PT 11.4 SECONDS (9.4-12.5) 10/18/17 13:00 INR 1.00 (0.93-1.08) 10/18/17 13:00 APTT 26.8 Seconds (25.1-36.5) 10/18/17 13:00 - Additional Findings Additional findings: - Constitutional Appears: Non-toxic, No Acute Distress, Older Than Stated Age, Chronically Ill - Head Exam Head Exam: ATRAUMATIC, NORMAL INSPECTION, NORMOCEPHALIC - Eye Exam Eye Exam: EOMI, Normal appearance. absent: Conjunctival injection, Scleral icterus Pupil Exam: absent: Irregular, Unequal - ENT Exam ENT Exam: Mucous Membranes Moist - Neck Exam Neck Exam: Full ROM - Respiratory Exam Respiratory Exam: Decreased Breath Sounds (mildly decreased breath sounds in all turcios, otherwise CTAB), Clear to Ausculation Bilateral, NORMAL BREATHING PATTERN. absent: Accessory Muscle Use, Rales, Rhonchi, Wheezes - Cardiovascular Exam Cardiovascular Exam: REGULAR RHYTHM, RRR, +S1, +S2. absent: Bradycardia, Tachycardia, Irregular Rhythm, JVD, +S4 - GI/Abdominal Exam GI & Abdominal Exam: Soft, Normal Bowel Sounds. absent: Distended, Firm, Guarding, Rigid, Tenderness, Diminished Bowel Sounds, Hyperactive Bowel Sounds, Hypoactive Bowel Sounds - Extremities Exam Extremities Exam: Normal Capillary Refill. absent: Calf Tenderness, Pedal Edema , Tenderness - Neurological Exam awake and alert, following all commands appropriately, oriented to self/location /year no tremors at rest, but moderately tremulous with movements When holding arms parallel to bed, initially tremulous, but then tremors decrease (while holding arms still) - Psychiatric Exam Psychiatric exam: Normal Affect, Normal Mood, No overt anxiety/agitation - Skin Skin Exam: Dry, Intact, Normal Color, Warm Assessment and Plan - Assessment and Plan (Free Text) Assessment: Patient is a 56 year old male with past medical history of CAD (1 stent), Alcohol abuse, Depression, HLD, Paroxysmal afib (not on AC 2/2 non-compliance and fall risk), HTN presents to [facility] [place] with acute alcohol intoxication and depression. Plan: 1) Alcohol withdrawal -Alcohol 397 on admission -Precedex gtt finished -Ativan 2mg Q2H IV prn, 2mg IV Q6H paradise; LFTs improved so will start low-dose librium, taper down to complete by wednesday (10/24/17), will stop if LFTs rise again -2 point restraints as needed -Zofran prn nausea -Utox negative -CIWA protocol; AM score 0 -Aspiration precautions, seizure precautions 2) History of Depression/History of suicidal ideation -Patient states that he is depressed and needs help, expressed SI overnight s/p CODE STAR but now denies to psych -Psych on consult, help appreciated; 1:1 d/c, pt denies on Zoloft at home now so zoloft d/c, may be candidate for naltrexone, signed off 3) Elevated Liver Enzymes - improved -AST/ALT decreased from 299/270 on admit to 58/102 -History of positive Hepatitis A ab, repeat panel negative -Abdominal US ordered: notable for sludge without acute cholecystitis, non- specific heterogenous enhancement of liver -Avoid Hepatotoxic medications (Lipitor on hold) -Continue to monitor 4) Anion gap metabolic acidosis - resolved -Anion 21 on admission, 11 today -Likely secondary to alcohol -Continue IV fluids -Continue to monitor gap 5) History of Paraoxysmal Afib -Not on anticoagulation due to non-compliance -Metoprolol 50mg PO BID with hold parameters -EKG in ED showing sinus tachy 102, possible left atrial enlargement; RRR today on exam and bedside monitor 6) HLD -continue to hold statin due to LFT elevations 7) CAD -Troponin negative x 1 -Continue ASA 81mg PO daily 8) Leukocytosis - resolved -CXR showing no active disease -rapid flu and procal negative 9) History of Hypertension -Home medications: HTCZ, Metoprolol, Norvasc, Diovan -Restarted home norvasc and diovan -Can restart remaining home medications as needed, PRN Hydralazine for SBP > 160 10) Elevated CPK -IV fluid hydration -CPK 889 -Continue to monitor 11) Bilateral lower extremity pain -Lower extremity duplex ordered, negative for DVT Dispo: In ICU, s/p precedex drip, pending transfer to med/surg, pending Librium , continue CIWA for withdrawal FEN: HHD, Multivitamin Access: Peripheral IV Consults: Psych Ppx: Protonix for GI, SCDs for DVT Patient seen, reviewed, and discussed with attending, Dr. Yeung. <Mike Yeung - Last Filed: 10/22/17 16:53> Objective - Vital Signs/Intake and Output Vital Signs (last 24 hours): Temp Pulse Resp BP Pulse Ox 98 F 88 20 101/76 99 10/22/17 12:00 10/22/17 14:20 10/22/17 14:20 10/22/17 13:04 10/22/17 12:00 Intake and Output: 10/22/17 10/22/17 06:59 18:59 Intake Total 2100 1830 Output Total 850 1700 Balance 1250 130 - Medications Medications: Current Medications Amlodipine Besylate (Norvasc) 10 mg PO DAILY [facility] Last Admin: 10/22/17 09:14 Dose: 10 mg Aspirin (Ecotrin) 81 mg PO DAILY [facility] Last Admin: 10/22/17 09:12 Dose: 81 mg Calcium Carbonate (Caltrate) 600 mg PO BID [facility] Last Admin: 10/22/17 09:12 Dose: 600 mg Chlordiazepoxide (Librium) 25 mg PO Q8 [facility] PRN Reason: Protocol Stop: 10/23/17 06:01 Chlordiazepoxide (Librium) 10 mg PO Q8 [facility] PRN Reason: Protocol Stop: 10/24/17 06:01 Chlordiazepoxide (Librium) 5 mg PO Q8 [facility] PRN Reason: Protocol Stop: 10/24/17 22:01 Enoxaparin Sodium (Lovenox) 40 mg SC DAILY [facility] PRN Reason: Protocol Last Admin: 10/22/17 09:14 Dose: 40 mg Folic Acid (Folic Acid) 1 mg PO DAILY [facility] Last Admin: 10/22/17 09:12 Dose: 1 mg Hydralazine HCl (Apresoline) 10 mg IVP Q6 PRN PRN Reason: SBP > 160 Last Admin: 10/20/17 05:51 Dose: 10 mg Insulin Human Regular (Humulin R Low) 0 units SC ACHS [facility] PRN Reason: Protocol Last Admin: 10/22/17 11:30 Dose: Not Given Lorazepam (Ativan) 2 mg IVP Q2H PRN; Protocol PRN Reason: alcohol withdrawals Last Admin: 10/21/17 17:25 Dose: 2 mg Lorazepam (Ativan) 6 mg IM ONCE PRN; Protocol PRN Reason: withdrawal Lorazepam (Ativan) 2 mg IVP Q6H [facility] PRN Reason: Protocol Last Admin: 10/22/17 09:15 Dose: 2 mg Metoprolol Tartrate (Lopressor) 50 mg PO BID [facility] Last Admin: 10/22/17 09:13 Dose: 50 mg Multivitamins/Minerals (Therapeutic-M Tab) 1 tab PO 0800 [facility] Last Admin: 10/22/17 09:15 Dose: 1 tab Nicotine (Nicoderm Cq) 1 patch TD DAILY [facility] Last Admin: 10/22/17 10:09 Dose: 1 patch Ondansetron HCl (Zofran Inj) 4 mg IVP Q6H PRN PRN Reason: Nausea/Vomiting Pantoprazole Sodium (Protonix Ec Tab) 40 mg PO ACB [facility] Last Admin: 10/22/17 09:14 Dose: 40 mg Thiamine HCl (Vitamin B1 Tab) 100 mg PO DAILY [facility] Last Admin: 10/22/17 09:14 Dose: 100 mg Valsartan (Diovan) 320 mg PO DAILY [facility] Last Admin: 10/21/17 09:04 Dose: 320 mg Ziprasidone (Geodon Inj) 20 mg IM ONCE PRN; Protocol PRN Reason: Agitation Last Admin: 10/21/17 00:04 Dose: 20 mg - Labs Labs: 10/22/17 06:20 10/22/17 06:20 PT 11.4 SECONDS (9.4-12.5) 10/18/17 13:00 INR 1.00 (0.93-1.08) 10/18/17 13:00 APTT 26.8 Seconds (25.1-36.5) 10/18/17 13:00 Attending/Attestation - Attestation I have personally seen and examined this patient.: Yes I have fully participated in the care of the patient.: Yes I have reviewed all pertinent clinical information, including history, physical exam and plan: Yes Notes (Text): I have seen and examined the patient at bedside. Agree with the above note with the following additions/ exceptions: Briefly this is 56 year old male with history of CAD s/p stent, alcohol abuse, depression, dyslipidemia, PAF not on anticoagulation due to non compliance and fall risk, HTN who was admitted for alcohol withdrawal and worsening of depression. Will continue CIWA protocol and tapering doses of ativan. Psych consult appreciated. Fall risk. Patient denies homicidal or suicidal ideation. Patient will be downgraded today. Upon discharge patient will follow up with Dr Gomez.
--- NOTE | 2017-10-22 11:10 | PN ---
DATE: 10/22/2017 SUBJECTIVE: The patient is seen and examined at bedside. He is comfortable, alert, awake and oriented x3. He is drinking clear liquids without difficulties. He is hungry. PHYSICAL EXAMINATION VITAL SIGNS: Heart rate 69, oxygen saturation 99% on room air, blood pressure 112/71, respiratory rate 19. ENT: Head and neck atraumatic. LUNGS: Clear to auscultation bilaterally. HEART: Regular rate and rhythm. S1 and S2 normal. ABDOMEN: Soft, nontender, nondistended. MUSCULOSKELETAL: No C/C/E. NEUROLOGIC: The patient moves all extremities spontaneously. SKIN: Moist. PSYCHIATRIC: The patient is alert and oriented x3. LABORATORY DATA: WBC 7.3, hemoglobin 13.6, platelet count 152. Sodium 140, potassium 4.4, chloride 106, carbon dioxide 23, BUN 19, creatinine 1.2 , glucose 101, AST 58, ALT 102 (trended down), total bilirubin 0.9 down from 1.1. INR 1. Hepatitis profile negative. Influenza negative. MEDICATIONS: Norvasc, aspirin, calcium, Lovenox, folic acid, hydralazine, Ativan p.r.n. and every 6 hours, metoprolol, Zofran p.r.n., Protonix, thiamine, Diovan (will be held out of concern for rising creatinine), if need be calcium channel sarika another antihypertensive will be started. At present time, Chichi p.r.addy. ASSESSMENT AND PLAN: This 56-year-old gentleman who presented with alcohol withdrawal symptoms/hyperadrenergic state, requiring Precedex drip and frequent benzodiazepines on as needed basis. At present time, the patient will be on Ativan standing dose, Precedex drip was stopped. Other non-medicamentous measures will be taken to reduce impact of delirium including optimization of sleep and circadian patterns, frequent reorientation, out of bed to chair, early mobilization, and transferring out of ICU. We will continue to target euvolemia, euglycemia, normothermia, and oxygen saturation more than 90%. We will continue with DVT and GI prophylaxis. ccm time 40 min Bart Shay MD [facility] # [id number]
[2017-10-22] MEDS ORDERED: Sodium Chloride 0.9% 1,000 ML IV SCH (11:30)
[2017-10-23 07:22] LABS: BASO # 0.03 K/mm3 (0.0-2.0); BASO % 0.5 % (0.0-3.0); EOS # 0.2 (0.0-0.7); GRAN # 3.27 (1.4-6.5); GRAN % 51.4 % (50.0-68.0); HEMOGLOBIN 13.3 g/dL (14.0-18.0); LYMPH # 2.4 (1.2-3.4); MEAN CELL VOLUME 92.4 fl (80.0-105.0); MEAN CORPUSCULAR HEMOGLOBIN 31.7 pg (25.0-35.0); MEAN CORPUSCULAR HGB CONC 34.4 g/dl (31.0-37.0); MEAN PLATELET VOLUME 10.6 fl (7.0-11.0); MONO # 0.5 (0.1-0.6); MONO % 7.1 % (1.0-6.0); RBC 4.19 10^6/uL (3.5-6.1); RED CELL DISTRIBUTION WIDTH 12.9 % (11.5-14.5); WHITE BLOOD COUNT 6.4 10^3/ul (4.5-11.0)
[2017-10-23 08:18] LABS: ALB/GLOB RATIO 1.4 (1.1-1.8); ALBUMIN 4.3 g/dL (3.0-4.8); ALT/SGPT 93 U/L (7-56); AST/SGOT 49 U/L (17-59); BLOOD UREA NITROGEN 15 mg/dL (7-21); CALCIUM 9.1 mg/dL (8.4-10.5); GFR AFRICAN-AMERICAN > 60; GFR NON-AFRICAN AMERICAN > 60
[2017-10-23] MEDS: Insulin Reg-LOW-Coverage SC SCH ×4 (08:23→22:00)
[2017-10-23] MEDS: Enoxaparin 40 mg Syringe SC SCH (10:02)
[2017-10-23] MEDS: Multivitamin With Minerals Tab PO SCH (10:03)
[2017-10-23] MEDS: Pantoprazole 40 mg EC Tab PO SCH (10:04)
--- NOTE | 2017-10-23 12:02 | CP.PCM.PN ---
<Villa Espinoza - Last Filed: 10/23/17 14:50> Subjective - Date & Time of Evaluation Date of Evaluation: 10/23/17 Time of Evaluation: 07:40 - Subjective Subjective: IM Progress Note for Hospitalist Service Patient seen and examined at bedside on the floors. Overnight, no acute events reported. Remains AAOx3 (self, location, year) on exam this AM. Denies chest pain, shortness of breath, emesis. Pending possible discharge tomorrow. Objective - Vital Signs/Intake and Output Vital Signs (last 24 hours): Temp Pulse Resp BP Pulse Ox 97.3 F L 82 20 133/95 H 95 10/23/17 06:00 10/23/17 10:01 10/23/17 06:00 10/23/17 10:02 10/23/17 06:00 Intake and Output: 10/23/17 10/23/17 06:59 18:59 Intake Total 1020 Output Total 2150 Balance -1130 - Medications Medications: Current Medications Amlodipine Besylate (Norvasc) 10 mg PO DAILY [facility] Last Admin: 10/23/17 10:02 Dose: 10 mg Aspirin (Ecotrin) 81 mg PO DAILY [facility] Last Admin: 10/23/17 10:01 Dose: 81 mg Calcium Carbonate (Caltrate) 600 mg PO BID [facility] Last Admin: 10/23/17 10:01 Dose: 600 mg Chlordiazepoxide (Librium) 10 mg PO Q8 [facility] PRN Reason: Protocol Stop: 10/24/17 06:01 Chlordiazepoxide (Librium) 5 mg PO Q8 [facility] PRN Reason: Protocol Stop: 10/24/17 22:01 Enoxaparin Sodium (Lovenox) 40 mg SC DAILY [facility] PRN Reason: Protocol Last Admin: 10/23/17 10:02 Dose: 40 mg Folic Acid (Folic Acid) 1 mg PO DAILY [facility] Last Admin: 10/23/17 10:01 Dose: 1 mg Hydralazine HCl (Apresoline) 10 mg IVP Q6 PRN PRN Reason: SBP > 160 Last Admin: 10/20/17 05:51 Dose: 10 mg Insulin Human Regular (Humulin R Low) 0 units SC ACHS [facility] PRN Reason: Protocol Last Admin: 10/23/17 08:23 Dose: Not Given Lorazepam (Ativan) 2 mg IVP Q2H PRN; Protocol PRN Reason: alcohol withdrawals Last Admin: 10/21/17 17:25 Dose: 2 mg Lorazepam (Ativan) 6 mg IM ONCE PRN; Protocol PRN Reason: withdrawal Lorazepam (Ativan) 2 mg IVP Q6H [facility] PRN Reason: Protocol Last Admin: 10/23/17 10:00 Dose: 2 mg Metoprolol Tartrate (Lopressor) 50 mg PO BID [facility] Last Admin: 10/23/17 10:01 Dose: 50 mg Multivitamins/Minerals (Therapeutic-M Tab) 1 tab PO 0800 [facility] Last Admin: 10/23/17 10:03 Dose: 1 tab Nicotine (Nicoderm Cq) 1 patch TD DAILY [facility] Last Admin: 10/23/17 10:02 Dose: 1 patch Ondansetron HCl (Zofran Inj) 4 mg IVP Q6H PRN PRN Reason: Nausea/Vomiting Pantoprazole Sodium (Protonix Ec Tab) 40 mg PO ACB [facility] Last Admin: 10/23/17 10:04 Dose: 40 mg Thiamine HCl (Vitamin B1 Tab) 100 mg PO DAILY [facility] Last Admin: 10/23/17 10:03 Dose: 100 mg Valsartan (Diovan) 320 mg PO DAILY [facility] Last Admin: 10/21/17 09:04 Dose: 320 mg Ziprasidone (Geodon Inj) 20 mg IM ONCE PRN; Protocol PRN Reason: Agitation Last Admin: 10/21/17 00:04 Dose: 20 mg - Labs Labs: 10/23/17 07:00 10/23/17 07:00 PT 11.4 SECONDS (9.4-12.5) 10/18/17 13:00 INR 1.00 (0.93-1.08) 10/18/17 13:00 APTT 26.8 Seconds (25.1-36.5) 10/18/17 13:00 - Additional Findings Additional findings: - Constitutional Appears: Non-toxic, No Acute Distress, Older Than Stated Age, Chronically Ill - Head Exam Head Exam: ATRAUMATIC, NORMAL INSPECTION, NORMOCEPHALIC - Eye Exam Eye Exam: EOMI, Normal appearance. absent: Conjunctival injection, Scleral icterus Pupil Exam: absent: Irregular, Unequal - ENT Exam ENT Exam: Mucous Membranes Moist - Neck Exam Neck Exam: Full ROM - Respiratory Exam Respiratory Exam: Decreased Breath Sounds (mildly decreased breath sounds in all turcios, otherwise CTAB), Clear to Ausculation Bilateral, NORMAL BREATHING PATTERN. absent: Accessory Muscle Use, Rales, Rhonchi, Wheezes - Cardiovascular Exam Cardiovascular Exam: REGULAR RHYTHM, RRR, +S1, +S2. absent: Bradycardia, Tachycardia, Irregular Rhythm, JVD, +S4 - GI/Abdominal Exam GI & Abdominal Exam: Soft, Normal Bowel Sounds. absent: Distended, Firm, Guarding, Rigid, Tenderness, Diminished Bowel Sounds, Hyperactive Bowel Sounds, Hypoactive Bowel Sounds - Extremities Exam Extremities Exam: Normal Capillary Refill. absent: Calf Tenderness, Pedal Edema , Tenderness - Neurological Exam awake and alert, following all commands appropriately, oriented to self/location /year no tremors at rest, but moderately tremulous with movements When holding arms parallel to bed, initially tremulous, but then tremors decrease (while holding arms still) - Psychiatric Exam Psychiatric exam: Normal Affect, Normal Mood, No overt anxiety/agitation - Skin Skin Exam: Dry, Intact, Normal Color, Warm Assessment and Plan - Assessment and Plan (Free Text) Assessment: Patient is a 56 year old male with past medical history of CAD (1 stent), Alcohol abuse, Depression, HLD, Paroxysmal afib (not on AC 2/2 non-compliance and fall risk), [place] [facility] [place] intoxication and depression. Plan: 1) Alcohol withdrawal -Alcohol 397 on admission -Precedex gtt finished -Ativan 0.5mg Q6H IV prn, 1mg PO Q6H paradise; on librium taper, currently on 10mg q8 , transition of 5mg q8 tonight and will complete taper tomorrow -off restraints, continue to monitor -Zofran prn nausea -Utox negative -CIWA protocol; AM score 0 -Aspiration precautions, seizure precautions 2) History of Depression/History of suicidal ideation -Patient states that he is depressed and needs help, expressed SI overnight s/p CODE STAR but now denies to psych -Psych on consult, help appreciated; 1:1 d/c, pt denies on Zoloft at home now so zoloft d/c, may be candidate for naltrexone, signed off 3) Elevated Liver Enzymes - improved -AST/ALT decreased from 299/270 on admit to 49/ -History of positive Hepatitis A ab, repeat panel negative -Abdominal US ordered: notable for sludge without acute cholecystitis, non- specific heterogenous enhancement of liver -Avoid Hepatotoxic medications (Lipitor on hold) -Continue to monitor 4) Anion gap metabolic acidosis - resolved -Likely secondary to alcohol -Continue IV fluids -Continue to monitor gap 5) History of Paraoxysmal Afib -Not on anticoagulation due to non-compliance -Metoprolol 50mg PO BID with hold parameters -EKG in ED showing sinus tachy 102, possible left atrial enlargement; RRR today on exam 6) HLD -continue to hold statin due to LFT elevations, will restart on discharge 7) CAD -Troponin negative x 1 -Continue ASA 81mg PO daily 8) Leukocytosis - resolved -CXR showing no active disease -rapid flu and procal negative 9) History of Hypertension -Home medications: HTCZ, Metoprolol, Norvasc, Diovan -Restarted home norvasc and diovan -Can restart remaining home medications as needed, PRN Hydralazine for SBP > 160 10) Elevated CPK - resolved -Continue to monitor 11) Bilateral lower extremity pain -Lower extremity duplex ordered, negative for DVT Dispo: Med Surg, on librium taper, pending taper completion and d/c tmr FEN: HHD, Multivitamin Access: Peripheral IV Consults: Psych Ppx: Protonix for GI, SCDs for DVT Patient seen, reviewed, and discussed with attending, Dr. Yeung. <Troy Cleary - Last Filed: 10/23/17 17:10> Objective - Vital Signs/Intake and Output Vital Signs (last 24 hours): Temp Pulse Resp BP Pulse Ox 97.3 F L 82 20 133/95 H 95 10/23/17 06:00 10/23/17 10:01 10/23/17 06:00 10/23/17 10:02 10/23/17 06:00 Intake and Output: 10/23/17 10/23/17 06:59 18:59 Intake Total 1020 Output Total 2150 Balance -1130 - Medications Medications: Current Medications Amlodipine Besylate (Norvasc) 10 mg PO DAILY [facility] Last Admin: 10/23/17 10:02 Dose: 10 mg Aspirin (Ecotrin) 81 mg PO DAILY [facility] Last Admin: 10/23/17 10:01 Dose: 81 mg Calcium Carbonate (Caltrate) 600 mg PO BID [facility] Last Admin: 10/23/17 10:01 Dose: 600 mg Chlordiazepoxide (Librium) 10 mg PO Q8 [facility] PRN Reason: Protocol Stop: 10/24/17 06:01 Last Admin: 10/23/17 16:39 Dose: 10 mg Chlordiazepoxide (Librium) 5 mg PO Q8 [facility] PRN Reason: Protocol Stop: 10/24/17 22:01 Enoxaparin Sodium (Lovenox) 40 mg SC DAILY [facility] PRN Reason: Protocol Last Admin: 10/23/17 10:02 Dose: 40 mg Folic Acid (Folic Acid) 1 mg PO DAILY [facility] Last Admin: 10/23/17 10:01 Dose: 1 mg Hydralazine HCl (Apresoline) 10 mg IVP Q6 PRN PRN Reason: SBP > 160 Last Admin: 10/20/17 05:51 Dose: 10 mg Insulin Human Regular (Humulin R Low) 0 units SC [facility] PRN Reason: Protocol Last Admin: 10/23/17 13:26 Dose: Not Given Lorazepam (Ativan) 1 mg PO Q6H [facility] PRN Reason: Protocol Last Admin: 10/23/17 16:38 Dose: 1 mg Lorazepam (Ativan) 0.5 mg IVP Q6H PRN; Protocol PRN Reason: Withdrawal/Agitation Metoprolol Tartrate (Lopressor) 50 mg PO BID [facility] Last Admin: 10/23/17 10:01 Dose: 50 mg Multivitamins/Minerals (Therapeutic-M Tab) 1 tab PO 0800 [facility] Last Admin: 10/23/17 10:03 Dose: 1 tab Nicotine (Nicoderm Cq) 1 patch TD DAILY [facility] Last Admin: 10/23/17 10:02 Dose: 1 patch Ondansetron HCl (Zofran Inj) 4 mg IVP Q6H PRN PRN Reason: Nausea/Vomiting Pantoprazole Sodium (Protonix Ec Tab) 40 mg PO ACB [facility] Last Admin: 10/23/17 10:04 Dose: 40 mg Thiamine HCl (Vitamin B1 Tab) 100 mg PO DAILY [facility] Last Admin: 10/23/17 10:03 Dose: 100 mg Valsartan (Diovan) 320 mg PO DAILY [facility] Last Admin: 10/21/17 09:04 Dose: 320 mg Ziprasidone (Geodon Inj) 20 mg IM ONCE PRN; Protocol PRN Reason: Agitation Last Admin: 10/21/17 00:04 Dose: 20 mg - Labs Labs: 10/23/17 07:00 10/23/17 07:00 PT 11.4 SECONDS (9.4-12.5) 10/18/17 13:00 INR 1.00 (0.93-1.08) 10/18/17 13:00 APTT 26.8 Seconds (25.1-36.5) 10/18/17 13:00 Attending/Attestation - Attestation I have personally seen and examined this patient.: Yes I have fully participated in the care of the patient.: Yes I have reviewed all pertinent clinical information, including history, physical exam and plan: Yes Notes (Text): 10/23/17 17:07 Attending note; Patient seen and examined with resident. Patient is a 56 year old male with history of CAD s/p stent, alcohol abuse, depression, dyslipidemia, PAF not on anticoagulation due to non compliance and fall risk, HTN who was admitted for alcohol withdrawal and worsening of depression. Will continue CIWA protocol and tapering doses of ativan. Patient is alert and wake. tolerating diet. Tremors improving. Psych consult appreciated. Fall risk. Patient denies homicidal or suicidal ideation. Possible discharge home tomorrow. Upon discharge patient will follow up with Dr Gomez.
[2017-10-24 07:29] LABS: BASO # 0.03 K/mm3 (0.0-2.0); BASO % 0.5 % (0.0-3.0); EOS # 0.1 (0.0-0.7); GRAN # 2.93 (1.4-6.5); GRAN % 49.9 % (50.0-68.0); HEMOGLOBIN 12.6 g/dL (14.0-18.0); LYMPH # 2.1 (1.2-3.4); LYMPH % 35.3 % (22.0-35.0); MEAN CELL VOLUME 92.8 fl (80.0-105.0); MEAN CORPUSCULAR HEMOGLOBIN 31.5 pg (25.0-35.0); MEAN PLATELET VOLUME 10.2 fl (7.0-11.0); MONO # 0.7 (0.1-0.6); MONO % 12.3 % (1.0-6.0); WHITE BLOOD COUNT 5.9 10^3/ul (4.5-11.0)
[2017-10-24 07:44] LABS: ALB/GLOB RATIO 1.3 (1.1-1.8); ALBUMIN 4.2 g/dL (3.0-4.8); ALT/SGPT 79 U/L (7-56); AST/SGOT 48 U/L (17-59); BLOOD UREA NITROGEN 13 mg/dL (7-21); CALCIUM 9.4 mg/dL (8.4-10.5); GFR AFRICAN-AMERICAN > 60; GFR NON-AFRICAN AMERICAN > 60
[2017-10-24 08:01] VITALS: BP 131/88; PULSE 89; TEMP 97.4; O2SAT 97
[2017-10-24] MEDS: Pantoprazole 40 mg EC Tab PO SCH (08:07)
[2017-10-24] MEDS: Insulin Reg-LOW-Coverage SC SCH ×2 (08:42→12:02)
[2017-10-24] MEDS: Multivitamin With Minerals Tab PO SCH (09:07)
[2017-10-24] MEDS: Enoxaparin 40 mg Syringe SC SCH (10:05)
[2017-10-24 11:15] VITALS: RESP 20
--- NOTE | 2017-10-24 14:22 | CP.PCM.DIS ---
Provider - Provider Date of Admission: 10/18/17 16:01 Attending physician: Mike Yeung MD Primary care physician: Leigh Victor MD Consults: Psych: Ebenezer Time Spent in preparation of Discharge (in minutes): 35 Diagnosis - Discharge Diagnosis (1) Alcohol abuse Status: Chronic Priority: High (2) Depressive disorder Status: Chronic Priority: Medium (3) A-fib Status: Chronic Priority: Medium Comment: not on AC due to non-compliance (4) COPD (chronic obstructive pulmonary disease) Status: Chronic Priority: Medium Hospital Course - Lab Results Lab Results: Micro Results 10/21/17 02:00 Naris MRSA Culture (Admit) - Final MRSA NOT DETECTED Most Recent Lab Values WBC 5.9 10^3/ul (4.5-11.0) 10/24/17 07:00 RBC 4.00 10^6/uL (3.5-6.1) 10/24/17 07:00 Hgb 12.6 g/dL (14.0-18.0) L 10/24/17 07:00 Hct 37.1 % (42.0-52.0) L 10/24/17 07:00 MCV 92.8 fl (80.0-105.0) 10/24/17 07:00 MCH 31.5 pg (25.0-35.0) 10/24/17 07:00 MCHC 34.0 g/dl (31.0-37.0) 10/24/17 07:00 RDW 13.0 % (11.5-14.5) 10/24/17 07:00 Plt Count 193 10^3/uL (120.0-450.0) 10/24/17 07:00 MPV 10.2 fl (7.0-11.0) 10/24/17 07:00 Gran % 49.9 % (50.0-68.0) L 10/24/17 07:00 Lymph % (Auto) 35.3 % (22.0-35.0) H 10/24/17 07:00 Placer % (Auto) 12.3 % (1.0-6.0) H 10/24/17 07:00 Eos % (Auto) 2.0 % (1.5-5.0) 10/24/17 07:00 Baso % (Auto) 0.5 % (0.0-3.0) 10/24/17 07:00 Gran # 2.93 (1.4-6.5) 10/24/17 07:00 Lymph # (Auto) 2.1 (1.2-3.4) 10/24/17 07:00 Placer # (Auto) 0.7 (0.1-0.6) H 10/24/17 07:00 Eos # (Auto) 0.1 (0.0-0.7) 10/24/17 07:00 Baso # (Auto) 0.03 K/mm3 (0.0-2.0) 10/24/17 07:00 PT 11.4 SECONDS (9.4-12.5) 10/18/17 13:00 INR 1.00 (0.93-1.08) 10/18/17 13:00 APTT 26.8 Seconds (25.1-36.5) 10/18/17 13:00 Sodium 139 mmol/L (132-148) 10/24/17 07:00 Potassium 3.9 mmol/L (3.6-5.0) 10/24/17 07:00 Chloride 103 mmol/L (98-107) 10/24/17 07:00 Carbon Dioxide 25 mmol/L (21-33) 10/24/17 07:00 Anion Gap 15 (10-20) 10/24/17 07:00 BUN 13 mg/dL (7-21) 10/24/17 07:00 Creatinine 0.8 mg/dl (0.8-1.5) 10/24/17 07:00 Est GFR ( Amer) > 60 10/24/17 07:00 Est GFR (Non-Af Amer) > 60 10/24/17 07:00 POC Glucose (mg/dL) 96 mg/dL (65-110) 10/24/17 11:24 Random Glucose 84 mg/dL (70-110) 10/24/17 07:00 Calcium 9.4 mg/dL (8.4-10.5) 10/24/17 07:00 Phosphorus 3.8 mg/dL (2.5-4.5) 10/24/17 07:00 Magnesium 2.0 mg/dL (1.7-2.2) 10/24/17 07:00 Total Bilirubin 0.6 mg/dL (0.2-1.3) 10/24/17 07:00 AST 48 U/L (17-59) 10/24/17 07:00 ALT 79 U/L (7-56) H 10/24/17 07:00 Alkaline Phosphatase 54 U/L (38-126) 10/24/17 07:00 Lactate Dehydrogenase 1608 U/L (333-699) H 10/18/17 13:00 Total Creatine Kinase 141 U/L (35-230) 10/22/17 06:30 CK-MB (CK-2) 4.2 ng/mL (0.0-3.6) H 10/18/17 13:00 CK-MB (CK-2) % Cancelled 10/18/17 13:00 Troponin I < 0.01 ng/mL 10/18/17 13:00 NT-Pro-B Natriuret Pep 88.4 pg/mL (0-450) 10/18/17 13:00 Total Protein 7.4 g/dL (5.8-8.3) 10/24/17 07:00 Albumin 4.2 g/dL (3.0-4.8) 10/24/17 07:00 Globulin 3.2 gm/dL 10/24/17 07:00 Albumin/Globulin Ratio 1.3 (1.1-1.8) 10/24/17 07:00 Procalcitonin 0.09 NG/ML (0.19-0.49) L 10/18/17 13:00 Free T4 0.95 ng/dL (0.78-2.19) 10/18/17 18:37 TSH 3rd Generation 0.49 mIU/mL (0.46-4.68) 10/18/17 18:37 Urine Color Yellow (YELLOW) 10/18/17 16:00 Urine Appearance Clear (CLEAR) 10/18/17 16:00 Urine pH 6.0 (4.7-8.0) 10/18/17 16:00 Ur Specific [place] <= 1.005 (1.005-1.035) 10/18/17 16:00 Urine Protein Negative mg/dL (<30 mg/dL) 10/18/17 16:00 Urine Glucose (UA) Negative mg/dL (NEGATIVE) 10/18/17 16:00 Urine Ketones Negative mg/dL (NEGATIVE) 10/18/17 16:00 Urine Blood Trace-lysed (NEGATIVE) H 10/18/17 16:00 Urine Nitrate Negative (NEGATIVE) 10/18/17 16:00 Urine Bilirubin Negative (NEGATIVE) 10/18/17 16:00 Urine Urobilinogen 0.2 E.U./dL (<1 E.U./dL) 10/18/17 16:00 Ur Leukocyte Esterase Negative Shahzad/uL (NEGATIVE) 10/18/17 16:00 Urine RBC 1 - 3 /hpf (0-2) 10/18/17 16:00 Urine WBC 0 - 2 /hpf (0-6) 10/18/17 16:00 Ur Epithelial Cells None /hpf (0-5) 10/18/17 16:00 Urine Bacteria Few (NEG) 10/18/17 16:00 Salicylates < 1 mg/dL (2.0-20.0) L 10/18/17 13:00 Urine Opiates Screen Negative (NEGATIVE) 10/18/17 16:00 Urine Methadone Screen Negative (NEGATIVE) 10/18/17 16:00 Acetaminophen < 10.0 ug/ml (10.0-20.0) L 10/18/17 13:00 Ur Barbiturates Screen Negative (NEGATIVE) 10/18/17 16:00 Ur Phencyclidine Scrn Negative (NEGATIVE) 10/18/17 16:00 Ur Amphetamines Screen Negative (NEGATIVE) 10/18/17 16:00 U Benzodiazepines Scrn Negative (NEGATIVE) 10/18/17 16:00 U Oth Cocaine Metabols Negative (NEGATIVE) 10/18/17 16:00 U Cannabinoids Screen Negative (NEGATIVE) 10/18/17 16:00 Alcohol, Quantitative 397 mg/dL (0-10) H* 10/18/17 13:00 Hepatitis A IgM Ab Negative (NEGATIVE) 10/18/17 18:37 Hep Bs Antigen Negative (NEGATIVE) 10/18/17 18:37 Hep B Core IgM Ab Negative (NEGATIVE) 10/18/17 18:37 Hepatitis C Antibody Negative (NEGATIVE) 10/18/17 18:37 Influenza Typ A,B (EIA) Negative for flu a/b (NEGATIVE) 10/18/17 18:20 - Hospital Course Hospital Course: Patient is a 56 year old male with past medical history of CAD (1 stent), Alcohol abuse, Depression, HLD, Paroxysmal afib (not on AC 2/2 non-compliance and fall risk), HTN presents to [facility] with acute alcohol intoxication and depression. While here, he reported depression and wanting help with quiting alcohol, so Psych was consulted. As per Psych, his Zoloft was stopped due to no longer taking it at home (which pt did not reveal to primary team). He was instructed to follow up with AA and outpatient psych after discharge, for possible Naltrexone therapy. After undergoing withdrawal for several days, including needing 4-point restraints and precedex drip due to violent behavior one overnight, patient finished withdrawing, was weaned from Ativan and Librium , and was cleared medically for discharge. He was instructed to resume all home medications as previously prescribed, to follow up with AA and outpatient psych, and to abstain from ALL further alcohol. He was also instructed to follow up with his PMD (Dr. Victor) within 1 week of discharge. He expressed understanding and agreement with these instructions. He was then discharged. Patient seen, reviewed, and discussed with attending, Dr. Yeung. Discharge Exam - Additional Findings Additional findings: - Constitutional Appears: Non-toxic, No Acute Distress, Older Than Stated Age, Chronically Ill - Head Exam Head Exam: ATRAUMATIC, NORMAL INSPECTION, NORMOCEPHALIC - Eye Exam Eye Exam: EOMI, Normal appearance. absent: Conjunctival injection, Scleral icterus Pupil Exam: absent: Irregular, Unequal - ENT Exam ENT Exam: Mucous Membranes Moist - Neck Exam Neck Exam: Full ROM - Respiratory Exam Respiratory Exam: Decreased Breath Sounds (mildly decreased breath sounds in all turcios, otherwise CTAB), Clear to Ausculation Bilateral, NORMAL BREATHING PATTERN. absent: Accessory Muscle Use, Rales, Rhonchi, Wheezes - Cardiovascular Exam Cardiovascular Exam: REGULAR RHYTHM, RRR, +S1, +S2. absent: Bradycardia, Tachycardia, Irregular Rhythm, JVD, +S4 - GI/Abdominal Exam GI & Abdominal Exam: Soft, Normal Bowel Sounds. absent: Distended, Firm, Guarding, Rigid, Tenderness, Diminished Bowel Sounds, Hyperactive Bowel Sounds, Hypoactive Bowel Sounds - Extremities Exam Extremities Exam: Normal Capillary Refill. absent: Calf Tenderness, Pedal Edema , Tenderness - Neurological Exam awake and alert, oriented x3 (self, location, year), following all commands appropriately no tremors at rest or with any movement - Psychiatric Exam Psychiatric exam: Normal Affect, Normal Mood, No overt anxiety/agitation - Skin Skin Exam: Dry, Intact, Normal Color, Warm Discharge Plan - Follow Up Plan Condition: IMPROVED Disposition: HOME/ ROUTINE Instructions: Alcohol Use - When Is Drinking a Problem?, Alcohol Abuse and Alcoholism (DC) Additional Instructions: Please follow up with your PMD (Dr. Victor) within 1 week of discharge. Please avoid ALL further alcohol use. Please follow up with AA and/or outpatient psych for possible Naltrexone ( referral has been provided). Please resume all home medications as previously prescribed. Please return to a hospital if you experience worsening or new concerning symptoms. Referrals: Alcoholics Anonymous [Outside] [facility] [Outside] Leigh Hester MD [Primary Care Provider] -
== END 2017-10-24 17:07 | disposition home or self-care (01) | DRG 897 ==
LOC: ED 12:54 → ERH 16:01 → 2RSO 20:08 → ICU 10-21 01:53 → 3RNO 10-22 16:24
PROVIDERS: ADMIT Internal Medicine; ATTEND Hospitalist
DX: F10.239 Alcohol dependence with withdrawal, unspecified (principal); E87.2 Acidosis; R45.851 Suicidal ideations; F10.24 Alcohol dependence with alcohol-induced mood disorder; F32.89 Other specified depressive episodes; I10 Essential (primary) hypertension; D64.9 Anemia, unspecified; E78.5 Hyperlipidemia, unspecified; I25.10 Atherosclerotic heart disease of native coronary artery without angina pectoris; I48.0 Paroxysmal atrial fibrillation; J44.9 Chronic obstructive pulmonary disease, unspecified; D72.829 Elevated white blood cell count, unspecified; Z78.1 Physical restraint status; Z79.82 Long term (current) use of aspirin; Z79.899 Other long term (current) drug therapy; F17.290 Nicotine dependence, other tobacco product, uncomplicated; Z91.19 Patient's noncompliance with other medical treatment and regimen; Z95.5 Presence of coronary angioplasty implant and graft; Z91.81 History of falling; Y90.8 Blood alcohol level of 240 mg/100 ml or more; F41.9 Anxiety disorder, unspecified; R40.2412 Glasgow coma scale score 13-15, at arrival to emergency department

== ENCOUNTER 2017-12-15 12:17 | Inpatient (IN) | payer MEDICAID, OTHER ==
--- NOTE | 2017-12-15 13:07 | ED PDOC ---
Arrival/HPI - General Historian: Patient - History of Present Illness Time/Duration: 4-6 hours Symptom Onset: Sudden Symptom Course: Improving Quality: Pressure Severity Level: 4 - General Chief Complaint: Chest Pain Time Seen by Provider: 12/15/17 12:30 - History of Present Illness Narrative History of Present Illness (Text): 57 year old male with PMH of alcohol abuse presents with chest discomfort which began this mornigng after having 3 beers. Patient states pain radiates to back and associated with nausea. He states he has been drinking heavily for 2 weeks now. He says he wants to lay in the hospital for 3 days and will feel better after that. He denies shortness of breath, fever, chills, abdominal pain, palpitations, or any other complaints at this time. 12/15/17 13:05 (Ramesh Fraga) Past Medical History - Provider Review Nursing Documentation Reviewed: Yes - Infectious Disease Hx of Infectious Diseases: None - Tetanus Immunization Tetanus Immunization: Unknown - Cardiac Hx Congestive Heart Failure: Yes (Paroxymal Afib) Hx Hypertension: Yes - Pulmonary Hx Respiratory Disorders: No - Neurological Hx Neurological Disorder: No - HEENT Hx HEENT Disorder: No - Renal Hx Renal Disorder: No - Endocrine/Metabolic Hx Endocrine Disorders: No - Hematological/Oncological Hx Blood Disorders: No - Integumentary Hx Dermatological Disorder: No - Musculoskeletal/Rheumatological Hx Musculoskeletal Disorders: Yes Hx Falls: Yes Hx Unsteady Gait: Yes - Gastrointestinal Hx Gastrointestinal Disorders: No - Genitourinary/Gynecological Hx Genitourinary Disorders: No - Psychiatric Hx Psychophysiologic Disorder: Yes Hx Depression: Yes Hx Substance Use: No Other/Comment: ETOH ABUSE - Past Surgical History Past Surgical History: No Previous - Surgical History Hx Cardiac Catheterization: Yes Hx Coronary Stent: Yes - Anesthesia Hx Anesthesia: Yes Hx Anesthesia Reactions: No Hx Malignant Hyperthermia: No - Suicidal Assessment Feels Threatened In Home Enviroment: No Family/Social History - Physician Review Nursing Documentation Reviewed: Yes Family/Social History: No Known Family HX Smoking Status: Former Smoker Hx Alcohol Use: Yes Amount per day: 5 Hx Substance Use: No Hx Substance Use Treatment: No Allergies/Home Meds Allergies/Adverse Reactions: Allergies No Known Allergies Allergy (Verified 06/17/17 11:49) Review of Systems - Review of Systems Constitutional: Normal. absent: Fevers, Night Sweats Eyes: Normal ENT: Normal Respiratory: Normal. absent: SOB, Cough, Wheezing Cardiovascular: Chest Pain Gastrointestinal: Nausea. absent: Abdominal Pain, Stool Changes, Diarrhea, Vomiting, Hematemesis Genitourinary Male: Normal Musculoskeletal: Back Pain Skin: Other (sunburn on forehead) Neurological: Normal. absent: Headache, Dizziness, Focal Weakness, Gait Changes Endocrine: Normal Psychiatric: absent: Anxiety, Depression, Suicidal Ideation Physical Exam Vital Signs Reviewed: Yes Temperature: Afebrile Blood Pressure: Hypertensive Pulse: Regular Respiratory Rate: Normal Appearance: Positive for: Non-Toxic, Comfortable Pain Distress: None Mental Status: Positive for: Alert and Oriented X 3 - Systems Exam Head: Present: Atraumatic, Normocephalic Pupils: Present: PERRL Extroacular Muscles: Present: EOMI Conjunctiva: Present: Normal Mouth: Present: Moist Mucous Membranes Neck: Present: Normal Range of Motion Respiratory/Chest: Present: Clear to Auscultation Cardiovascular: Present: Regular Rate and Rhythm, Normal S1, S2. No: Murmurs Abdomen: Present: Normal Bowel Sounds. No: Tenderness, Distention Back: Present: Midline Tenderness Upper Extremity: No: Edema Lower Extremity: No: Edema Neurological: Present: GCS=15, CN II-XII Intact, Speech Normal Skin: Present: Warm, Dry Psychiatric: Present: Alert, Oriented x 3 Vital Signs Temp Pulse Resp BP Pulse Ox 12/15/17 15:12 90 16 152/92 H 99 12/15/17 13:40 98.5 F 12/15/17 12:29 94 H 18 156/97 H 99 Medical Decision Making ED Course and Treatment: Plan -EKG, CBC, CMP, lipase, amylase -banana bag, cardiac iso, thiamine -reasses -will admit to hospitalist 12/15/17 13:37 patient will be admitted to Dr. Shine under his service 12/15/17 14:36 (Ramesh Fraga) 12/15/17 Patient Seen With Resident: In agreement with resident note. Patient was seen and evaluated with resident, came up with plan and treatment together. 12/15/17 Chest X-ray: Creator : Tito Ochoa MD IMPRESSION: No active disease. 12/15/17 13:32 Discussed case with , who was made aware and agrees to admit patient under his service. (Erik Montes) - Lab Interpretations Lab Results: 12/15/17 13:50 12/15/17 13:50 Lab Results 12/15/17 13:50: Urine Opiates Screen Negative, Urine Methadone Screen Negative, Ur Barbiturates Screen Negative, Ur Phencyclidine Scrn Negative, Ur Amphetamines Screen Negative, U Benzodiazepines Scrn Negative, U Oth Cocaine Metabols Negative, U Cannabinoids Screen Negative 12/15/17 13:50: Sodium 145, Potassium 4.3, Chloride 105, Carbon Dioxide 22, Anion Gap 22 H, BUN 11, Creatinine 0.7 L, Est GFR ( Amer) > 60, Est GFR ( Non-Af Amer) > 60, Random Glucose 93, Calcium 8.5, Phosphorus 4.0, Magnesium 2.5 H, Total Bilirubin 0.5, AST 54, ALT 34, Alkaline Phosphatase 94, Lactate Dehydrogenase 795 H, Total Creatine Kinase 429 H, CK-MB (CK-2) 2.9, CK-MB (CK-2 ) % Cancelled, Troponin I < 0.01, Total Protein 8.3, Albumin 4.8, Globulin 3.5, Albumin/Globulin Ratio 1.4, Amylase 64, Lipase 174 12/15/17 13:50: Urine Color Yellow, Urine Appearance Sl cloudy, Urine pH 6.0, Ur Specific [place] 1.010, Urine Protein 30 H, Urine Glucose (UA) Negative, Urine Ketones Negative, Urine Blood Trace-intact H, Urine Nitrate Negative, Urine Bilirubin Negative, Urine Urobilinogen 0.2, Ur Leukocyte Esterase Negative , Urine RBC Negative, Urine WBC Negative 12/15/17 13:50: APTT 26.6 12/15/17 13:50: WBC 8.0 D, RBC 4.80, Hgb 15.4 D, Hct 42.6, MCV 88.8 D, MCH 32.1, MCHC 36.2, RDW 13.3, Plt Count 300, MPV 9.7, Gran % 68.0, Lymph % (Auto) 25.9, Owen % (Auto) 5.7, Eos % (Auto) 0.0 L, Baso % (Auto) 0.4, Gran # 5.45, Lymph # (Auto) 2.1, Owen # (Auto) 0.5, Eos # (Auto) 0.0, Baso # (Auto) 0.03 - RAD Interpretation Radiology Orders: 12/15/17 13:33 CHEST PORTABLE [RAD] Stat - Medication Orders Current Medication Orders: Aspirin (Ecotrin) 81 mg PO DAILY [facility] Last Admin: 12/15/17 14:57 Dose: 81 mg Folic Acid (Folic Acid) 1 mg PO DAILY [facility] Multivitamins/Vitamin C 10 ml/Thiamine HCl 100 mg/ Folic Acid 1 mg/ Sodium Chloride 1,011.2 mls @ 100 mls/hr IV .Q10H7M ONE Stop: 12/15/17 23:40 Last Admin: 12/15/17 14:54 Dose: 100 mls/hr eMAR Start Stop Document 12/15/17 14:54 SEVEN (Rec: 12/15/17 14:55 [id number] Intravenous Solution Start Date 12/15/17 Start Time 14:55 Lactated Ringer's (Lactated Ringer's) 1,000 mls @ 100 mls/hr IV .Q10H [facility] Lorazepam (Ativan) 1 mg IVP Q4H PRN; Protocol PRN Reason: Symptoms of alcohol withdrawl Lorazepam (Ativan) 2 mg IVP Q6H [facility] PRN Reason: Protocol Last Admin: 12/15/17 14:57 Dose: 2 mg IVP Administration Document 12/15/17 14:57 SEVEN (Rec: 12/15/17 14:57 [id number] Charges for Administration # of IVP Administrations 1 Metoprolol Tartrate (Lopressor) 50 mg PO BID [facility] Pantoprazole Sodium (Protonix Inj) 40 mg IVP DAILY [facility] Valsartan (Diovan) 320 mg PO DAILY [facility] Last Admin: 12/15/17 15:12 Dose: 320 mg Discontinued Medications Lorazepam (Ativan) 2 mg IVP Q6H PRN; Protocol PRN Reason: Symptoms of alcohol withdrawl Disposition/Present on Arrival - Present on Arrival Any Indicators Present on Arrival: No History of DVT/PE: No History of Uncontrolled Diabetes: No Urinary Catheter: No History Surgical Site Infection Following: None - Disposition Have Diagnosis and Disposition been Completed?: Yes Disposition Time: 14:42 - Disposition Diagnosis: Alcohol abuse, Chest pain Disposition: HOSPITALIZED Patient Problems: Current Active Problems Problem Status Onset Chest pain Acute Alcohol abuse Chronic Condition: GOOD Discharge Instructions (ExitCare): Chest Pain (ED) Referrals: [employer] Elaina Req, [Non-Staff] - Follow up with primary Forms: [employer] (Irish)
[2017-12-15 13:29] VITALS: BMI 23.5
[2017-12-15] MEDS ORDERED: Multivitamin (MVI) 10 ML, Thiamine 100 MG, Folic Acid 1 MG in Sodium Chloride 0.9% 1,00... IV ONE (13:34)
[2017-12-15] MEDS ORDERED: Thiamine 100 mg/ml Inj IM STA (13:34)
--- NOTE | 2017-12-15 13:56 | RAD ---
HISTORY: chest pain COMPARISON: No prior. FINDINGS: LUNGS: No active pulmonary disease. PLEURA: No significant pleural effusion identified, no pneumothorax apparent. CARDIOVASCULAR: Normal. OSSEOUS STRUCTURES: No significant abnormalities. VISUALIZED UPPER ABDOMEN: Normal. OTHER FINDINGS: None. IMPRESSION: No active disease.
[2017-12-15 14:21] LABS: URINE BILIRUBIN NEGATIVE (NEGATIVE); URINE BLOOD TRACE-INTACT (NEGATIVE); URINE GLUCOSE (UA) NEGATIVE (NEGATIVE); URINE LEUKOCYTE ESTERASE NEGATIVE Leu/uL (NEGATIVE); URINE PROTEIN 30 mg/dL (<30 mg/dL); URINE UROBILINOGEN 0.2 E.U./dL (<1 E.U./dL)
[2017-12-15 14:23] LABS: BASO # 0.03 K/mm3 (0.0-2.0); BASO % 0.4 % (0.0-3.0); GRAN # 5.45 (1.4-6.5); HEMOGLOBIN 15.4 g/dL (14.0-18.0); LYMPH # 2.1 (1.2-3.4); LYMPH % 25.9 % (22.0-35.0); MEAN CELL VOLUME 88.8 fl (80.0-105.0); MEAN CORPUSCULAR HEMOGLOBIN 32.1 pg (25.0-35.0); MEAN CORPUSCULAR HGB CONC 36.2 g/dl (31.0-37.0); MEAN PLATELET VOLUME 9.7 fl (7.0-11.0); MONO # 0.5 (0.1-0.6); MONO % 5.7 % (1.0-6.0); RBC 4.8 10^6/uL (3.5-6.1); RED CELL DISTRIBUTION WIDTH 13.3 % (11.5-14.5)
[2017-12-15 14:25] LABS: URINE APPEARANCE SL CLOUDY (CLEAR); URINE COLOR YELLOW (YELLOW)
[2017-12-15 14:28] LABS: ALB/GLOB RATIO 1.4 (1.1-1.8); ALBUMIN 4.8 g/dL (3.0-4.8); ALT/SGPT 34 U/L (7-56); AMYLASE 64 U/L (35-125); AST/SGOT 54 U/L (17-59); BLOOD UREA NITROGEN 11 mg/dL (7-21); CALCIUM 8.5 mg/dL (8.4-10.5); GFR AFRICAN-AMERICAN > 60; GFR NON-AFRICAN AMERICAN > 60; LIPASE 174 U/L (23-300)
[2017-12-15 14:31] LABS: URINE RBC NEGATIVE /hpf (0-2); URINE WBC NEGATIVE /hpf (0-6)
[2017-12-15 14:40] LABS: BARBITURATES, UR NEGATIVE (NEGATIVE); BENZODIAZEPINES, UR NEGATIVE (NEGATIVE); OPIATES, UR NEGATIVE (NEGATIVE); PHENCYCLIDINE, UR NEGATIVE (NEGATIVE)
[2017-12-15 14:45] LABS: TROPONIN I < 0.01 ng/mL
[2017-12-15 14:57] LABS: CK-MB 2.9 ng/mL (0.0-3.6)
--- NOTE | 2017-12-15 14:57 | CP.PCM.HP ---
<Gonzales Hernandez - Last Filed: 12/15/17 15:29> History of Present Illness - History of Present Illness History of Present Illness: Medicine H&P CC: "Drinking too much, need help" 56M pmhx significant for CAD s/p stent placement, ETOH abuse, depression, HLD, paroxysmal A.Fib not on anticoagulation due to non-compliance and chronic ETOH use, presents to [facility] [place] [facility] intoxicated stating he wants help to quit drinking. He has been drking 12+ beers per day for about 2 weeks. Patient states he is feeling stressed about life which drove him to start drinking after not having a drink for over 1 month. Patient states he hurts everywhere after drinking so much. 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 smokes e-cigs, still smokes approx 1/2PPD. Drinks atleast 15 beers/day. Denies recreational drug use. Meds: HCTZ 25mg PO daily, Diovan 320mg PO daily, Metoprolol 50mg BID, Lipitor 20mg PO daily, ASA 81mg PO daily Present on Admission - Present on Admission Any Indicators Present on Admission: No Review of Systems - Review of Systems All systems: reviewed and no additional remarkable complaints except - Constitutional Constitutional: As Per HPI Past Patient History - Infectious Disease Hx of Infectious Diseases: None - Tetanus Immunizations Tetanus Immunization: Unknown - Past Social History Smoking Status: Former Smoker - CARDIAC Hx Congestive Heart Failure: Yes (Paroxymal Afib) Hx Hypertension: Yes - PULMONARY Hx Respiratory Disorders: No - NEUROLOGICAL Hx Neurological Disorder: No - HEENT Hx HEENT Problems: No - RENAL Hx Chronic Kidney Disease: No - ENDOCRINE/METABOLIC Hx Endocrine Disorders: No - HEMATOLOGICAL/ONCOLOGICAL Hx Blood Disorders: No - INTEGUMENTARY Hx Dermatological Problems: No - MUSCULOSKELETAL/RHEUMATOLOGICAL Hx Musculoskeletal Disorders: Yes Hx Falls: Yes Hx Unsteady Gait: Yes - GASTROINTESTINAL Hx Gastrointestinal Disorders: No - GENITOURINARY/GYNECOLOGICAL Hx Genitourinary Disorders: No - PSYCHIATRIC Hx Psychophysiologic Disorder: Yes Hx Depression: Yes Hx Substance Use: No Other/Comment: ETOH ABUSE - SURGICAL HISTORY Hx Cardiac Catheterization: Yes Hx Coronary Stent: Yes - ANESTHESIA Hx Anesthesia: Yes Hx Anesthesia Reactions: No Hx Malignant Hyperthermia: No Meds Home Medications: Home Medication List Medication Instructions Recorded Confirmed Type Folic Acid 1 mg PO DAILY #14 tab 12/17/17 Rx Thiamine [Vitamin B1 Tab] 100 mg PO DAILY #14 tab 12/17/17 Rx Allergies/Adverse Reactions: Allergies Allergy/AdvReac Type Severity Reaction Status Date / Time No Known Allergies Allergy Verified 12/19/17 20:44 Physical Exam - Constitutional Appears: Non-toxic, No Acute Distress, Unkempt, Older Than Stated Age - Head Exam Head Exam: ATRAUMATIC - Eye Exam Eye Exam: Normal appearance, Nystagmus. absent: Scleral icterus Pupil Exam: NORMAL ACCOMODATION - ENT Exam ENT Exam: Mucous Membranes Dry - Respiratory Exam Respiratory Exam: Wheezes (diffuse), NORMAL BREATHING PATTERN. absent: Accessory Muscle Use, Chest Wall Tenderness, Rales, Rhonchi, Respiratory Distress, Stridor - Cardiovascular Exam Cardiovascular Exam: REGULAR RHYTHM, +S1, +S2. absent: Bradycardia, Tachycardia , Rubs - GI/Abdominal Exam GI & Abdominal Exam: Normal Bowel Sounds, Soft. absent: Diminished Bowel Sounds , Distended, Firm, Guarding, Hernia, Mass, Rebound, Rigid, Tenderness - Extremities Exam Extremities exam: Positive for: normal inspection, pedal pulses present. Negative for: calf tenderness, tenderness - Back Exam Back exam: absent: CVA tenderness (L), CVA tenderness (R) - Neurological Exam Neurological exam: Alert, Oriented x3 Additional comments: no focal neurologic deficits - Psychiatric Exam Psychiatric exam: Normal Affect - Skin Skin Exam: Intact, Warm Additional comments: entire back red and warm/ erythematous. no breaks in skin, bleeding, or boils Results - Vital Signs Recent Vital Signs: Last Vital Signs Temp 98.5 F 12/15/17 13:40 Pulse 94 H 12/15/17 12:29 Resp 18 12/15/17 12:29 BP 156/97 H 12/15/17 12:29 Pulse Ox 99 12/15/17 12:29 - Labs Result Diagrams: 12/15/17 13:50 12/15/17 13:50 Labs: Laboratory Results - last 24 hr 12/15/17 12/15/17 12/15/17 13:50 13:50 13:50 WBC 8.0 D RBC 4.80 Hgb 15.4 D Hct 42.6 MCV 88.8 D MCH 32.1 MCHC 36.2 RDW 13.3 Plt Count 300 MPV 9.7 Gran % 68.0 Lymph % (Auto) 25.9 Upson % (Auto) 5.7 Eos % (Auto) 0.0 L Baso % (Auto) 0.4 Gran # 5.45 Lymph # (Auto) 2.1 Upson # (Auto) 0.5 Eos # (Auto) 0.0 Baso # (Auto) 0.03 Sodium 145 Potassium 4.3 Chloride 105 Carbon Dioxide 22 Anion Gap 22 H BUN 11 Creatinine 0.7 L Est GFR ( Amer) > 60 Est GFR (Non-Af Amer) > 60 Random Glucose 93 Calcium 8.5 Phosphorus 4.0 Magnesium 2.5 H Total Bilirubin 0.5 AST 54 ALT 34 Alkaline Phosphatase 94 Lactate Dehydrogenase 795 H Total Creatine Kinase 429 H Troponin I < 0.01 Total Protein 8.3 Albumin 4.8 Globulin 3.5 Albumin/Globulin Ratio 1.4 Amylase 64 Lipase 174 Urine Color Yellow Urine Appearance Sl cloudy Urine pH 6.0 Ur Specific Almond 1.010 Urine Protein 30 H Urine Glucose (UA) Negative Urine Ketones Negative Urine Blood Trace-intact H Urine Nitrate Negative Urine Bilirubin Negative Urine Urobilinogen 0.2 Ur Leukocyte Esterase Negative Urine RBC Negative Urine WBC Negative Urine Opiates Screen Urine Methadone Screen Ur Barbiturates Screen Ur Phencyclidine Scrn Ur Amphetamines Screen U Benzodiazepines Scrn U Oth Cocaine Metabols U Cannabinoids Screen 12/15/17 13:50 WBC RBC Hgb Hct MCV MCH MCHC RDW Plt Count MPV Gran % Lymph % (Auto) Upson % (Auto) Eos % (Auto) Baso % (Auto) Gran # Lymph # (Auto) Upson # (Auto) Eos # (Auto) Baso # (Auto) Sodium Potassium Chloride Carbon Dioxide Anion Gap BUN Creatinine Est GFR ( Amer) Est GFR (Non-Af Amer) Random Glucose Calcium Phosphorus Magnesium Total Bilirubin AST ALT Alkaline Phosphatase Lactate Dehydrogenase Total Creatine Kinase Troponin I Total Protein Albumin Globulin Albumin/Globulin Ratio Amylase Lipase Urine Color Urine Appearance Urine pH Ur Specific Almond Urine Protein Urine Glucose (UA) Urine Ketones Urine Blood Urine Nitrate Urine Bilirubin Urine Urobilinogen Ur Leukocyte Esterase Urine RBC Urine WBC Urine Opiates Screen Negative Urine Methadone Screen Negative Ur Barbiturates Screen Negative Ur Phencyclidine Scrn Negative Ur Amphetamines Screen Negative U Benzodiazepines Scrn Negative U Oth Cocaine Metabols Negative U Cannabinoids Screen Negative Assessment & Plan - Assessment and Plan (Free Text) Assessment: 56M w/ pmhx of CAD s/p stent, Alcohol abuse, Depression, HLD, Paroxysmal afib ( not on AC due to non-compliance, excessive ETOH use and fall risk), presents to [facility] [place] with acute alcohol intoxication Plan: Acute Alcohol Intoxication/Alcohol abuse - CIFL protocol - Ativan 1mg Q6H, Ativan 2mg Q2H prn anxiety - Banana bag x 1 bolus - anti-emetic PRN - Monitor for signs and symptoms of withdrawal - Aspiration precautions, seizure precautions History of Depression/History of suicidal ideation -Will continue home dose of Zoloft 100mg PO daily -At this time denies suicidal/homicidal ideation - Affect is optimistic and wants to get better to start working again History of Paraoxysmal Afib -Not on anticoagulation -Metoprolol 50mg PO BID with hold parameters -EKG in ED showing sinus tachy 102, possible left atrial enlargement Elevated CPK -IV fluid hydration -Continue to monitor HLD -continue statin Hx of CAD -Troponin negative x 1 -Trend Trops -Continue ASA 81mg PO daily Hx of Hypertension -Home medications: HTCZ (hold), Metoprolol, Norvasc, Diovan -BP in ED low, 96/65 -Can restart home medications as needed hx of Hepatitis A - no transamintis - current resolved -Continue to monitor GI ppx: Protonix 40mg PO daily DVT: Lovenox 40mg SC case discussed w/ Dr. Shine Attending [facility] PGY1 <Swathi Shine - Last Filed: 12/20/17 16:05> Results - Vital Signs Recent Vital Signs: Last Vital Signs Temp 98.1 F 12/17/17 11:43 Pulse 82 12/17/17 11:43 Resp 20 12/17/17 11:43 BP 148/77 12/17/17 11:43 Pulse Ox 96 12/17/17 05:58 - Labs Result Diagrams: 12/17/17 05:45 12/17/17 05:45 Attending/Attestation - Attestation I have personally seen and examined this patient.: Yes I have fully participated in the care of the patient.: Yes I have reviewed all pertinent clinical information: Yes Notes (Text): 12/20/17 16:03 Medical record note made by the resident after discussion with my direction and input after the patient was personally seen and examined by me. I have reviewed the chart and agree that the record accurately reflects by personal performance of the history, physical exam, data review, and medical decision-making, in the course for the patient. I have also personally directed the plan of care. 57 year old male with history of CAD, s/p stent, alcohol abuse, depression, dyslipidemia, PAF not on anticoagulation due to noncompliance and fall risk, HTN is admitted for alcohol withdrawal , we will monitor patient with CIWA .Heart rate is controlled. Management plan was discussed in detail with patient. Education was provided. 12/20/17 16:05
--- NOTE | 2017-12-15 17:54 | CARD ---
APPROVED REPORT EKG Measurement Heart [id number] <Conclusion> Normal sinus rhythm Possible Left atrial enlargement Left axis deviation Abnormal ECG
[2017-12-15 18:48] LABS: TROPONIN I < 0.01 ng/mL
[2017-12-16] MEDS: Lactated Ringer's 1,000 ML IV SCH ×2 (01:54→20:41)
[2017-12-16 07:11] LABS: BASO # 0.09 K/mm3 (0.0-2.0); BASO % 1.1 % (0.0-3.0); EOS % 0.2 % (1.5-5.0); GRAN # 6.1 (1.4-6.5); GRAN % 72.6 % (50.0-68.0); HEMOGLOBIN 13.8 g/dL (14.0-18.0); LYMPH # 1.4 (1.2-3.4); LYMPH % 16.6 % (22.0-35.0); MEAN CORPUSCULAR HEMOGLOBIN 31.4 pg (25.0-35.0); MEAN CORPUSCULAR HGB CONC 34.9 g/dl (31.0-37.0); MEAN PLATELET VOLUME 10.1 fl (7.0-11.0); MONO # 0.8 (0.1-0.6); MONO % 9.5 % (1.0-6.0); RBC 4.39 10^6/uL (3.5-6.1); RED CELL DISTRIBUTION WIDTH 13.6 % (11.5-14.5); WHITE BLOOD COUNT 8.4 10^3/ul (4.5-11.0)
--- NOTE | 2017-12-16 07:31 | CP.PCM.PN ---
Subjective - Date & Time of Evaluation Date of Evaluation: 12/16/17 Time of Evaluation: 07:31 - Subjective Subjective: Medicine Progress note Patient seen and examined at bedside. No acute events overnight. Receiving PARADISE ativan. Still having some tremors. Denies nasuea, vomiting, fevers, chills, chest pain, shortness of breath Objective - Vital Signs/Intake and Output Vital Signs (last 24 hours): Temp Pulse Resp BP Pulse Ox 97.9 F 87 20 163/85 H 92 L 12/16/17 05:53 12/16/17 05:55 12/16/17 05:53 12/16/17 05:53 12/16/17 05:53 Intake and Output: 12/16/17 12/16/17 06:59 18:59 Intake Total 0 500 Output Total 0 Balance 0 500 - Medications Medications: Current Medications Amlodipine Besylate (Norvasc) 10 mg PO DAILY [facility] Aspirin (Ecotrin) 81 mg PO DAILY [facility] Last Admin: 12/15/17 14:57 Dose: 81 mg Atorvastatin Calcium (Lipitor) 20 mg PO DIN [facility] Folic Acid (Folic Acid) 1 mg PO DAILY [facility] Lactated Ringer's (Lactated Ringer's) 1,000 mls @ 100 mls/hr IV .Q10H [facility] Last Admin: 12/16/17 01:54 Dose: 100 mls/hr Lorazepam (Ativan) 1 mg IVP Q4H PRN; Protocol PRN Reason: Symptoms of alcohol withdrawl Last Admin: 12/16/17 05:14 Dose: 1 mg Lorazepam (Ativan) 2 mg IVP Q6H PARADISE PRN Reason: Protocol Last Admin: 12/16/17 02:14 Dose: 2 mg Metoprolol Tartrate (Lopressor) 50 mg PO BID [facility] Last Admin: 12/15/17 18:01 Dose: 50 mg Pantoprazole Sodium (Protonix Inj) 40 mg IVP DAILY [facility] Valsartan (Diovan) 320 mg PO DAILY [facility] Last Admin: 12/15/17 15:12 Dose: 320 mg - Labs Labs: 12/16/17 06:45 APTT 26.6 Seconds (25.1-36.5) 12/15/17 13:50 - Constitutional Appears: Non-toxic, No Acute Distress - Head Exam Head Exam: ATRAUMATIC - Eye Exam Eye Exam: EOMI, Nystagmus. absent: Scleral icterus Pupil Exam: PERRL - ENT Exam ENT Exam: Mucous Membranes Moist - Respiratory Exam Respiratory Exam: NORMAL BREATHING PATTERN. absent: Accessory Muscle Use, Rales , Rhonchi, Respiratory Distress - Cardiovascular Exam Cardiovascular Exam: REGULAR RHYTHM, +S1, +S2. absent: Bradycardia, Tachycardia - GI/Abdominal Exam GI & Abdominal Exam: Soft. absent: Distended, Firm, Guarding, Rigid, Tenderness - Neurological Exam Neurological Exam: Alert, Awake, Oriented x3 - Psychiatric Exam Psychiatric exam: Normal Affect - Skin Skin Exam: Intact, Warm Assessment and Plan - Assessment and Plan (Free Text) Assessment: 56M w/ pmhx of CAD s/p stent, Alcohol abuse, Depression, HLD, Paroxysmal afib ( not on AC due to non-compliance, excessive ETOH use and fall risk), [place] [facility] [place] intoxication Plan: Acute Alcohol Intoxication/Alcohol abuse - CIWA protocol - Ativan 1mg Q6H, Ativan 2mg Q2H prn anxiety - Banana bag x 1 bolus - anti-emetic PRN - Monitor for signs and symptoms of withdrawal - Aspiration precautions, seizure precautions - advance to regular diet History of Depression/History of suicidal ideation -Will continue home dose of Zoloft 100mg PO daily -At this time denies suicidal/homicidal ideation - Affect is optimistic and wants to get better to start working again History of Paraoxysmal Afib -Not on anticoagulation -Metoprolol 50mg PO BID with hold parameters -EKG in ED showing sinus tachy 102, possible left atrial enlargement Elevated CPK -IV fluid hydration -Continue to monitor HLD -continue statin Hx of CAD -Troponin negative x 1 -Troponin negative x 3 -Continue ASA 81mg PO daily Hx of Hypertension -Home medications: HTCZ (hold), Metoprolol, Norvasc, Diovan -BP in ED low, 96/65 -Can restart home medications as needed hx of Hepatitis A - no transamintis - current resolved -Continue to monitor GI ppx: Protonix 40mg PO daily DVT: Lovenox 40mg SC case discussed with Dr. Ferrell attending [facility] PGY1
[2017-12-16 07:41] LABS: ALB/GLOB RATIO 1.3 (1.1-1.8); ALBUMIN 4.3 g/dL (3.0-4.8); ALT/SGPT 47 U/L (7-56); AST/SGOT 49 U/L (17-59); BLOOD UREA NITROGEN 16 mg/dL (7-21); CALCIUM 8.6 mg/dL (8.4-10.5); GFR AFRICAN-AMERICAN > 60; GFR NON-AFRICAN AMERICAN > 60
[2017-12-17 00:05] VITALS: RESP 20
[2017-12-17 05:59] VITALS: O2SAT 96
[2017-12-17 06:26] LABS: BASO # 0.06 K/mm3 (0.0-2.0); EOS # 0.1 (0.0-0.7); EOS % 2.3 % (1.5-5.0); GRAN # 3.24 (1.4-6.5); GRAN % 53.8 % (50.0-68.0); HEMOGLOBIN 13.4 g/dL (14.0-18.0); LYMPH % 32.6 % (22.0-35.0); MEAN CELL VOLUME 90.9 fl (80.0-105.0); MEAN CORPUSCULAR HEMOGLOBIN 31.2 pg (25.0-35.0); MEAN CORPUSCULAR HGB CONC 34.3 g/dl (31.0-37.0); MEAN PLATELET VOLUME 10.2 fl (7.0-11.0); MONO # 0.6 (0.1-0.6); MONO % 10.3 % (1.0-6.0); RBC 4.3 10^6/uL (3.5-6.1); RED CELL DISTRIBUTION WIDTH 13.4 % (11.5-14.5)
[2017-12-17 06:52] LABS: ALB/GLOB RATIO 1.2 (1.1-1.8); ALBUMIN 3.9 g/dL (3.0-4.8); ALT/SGPT 38 U/L (7-56); AST/SGOT 53 U/L (17-59); BLOOD UREA NITROGEN 11 mg/dL (7-21); CALCIUM 8.6 mg/dL (8.4-10.5); GFR AFRICAN-AMERICAN > 60; GFR NON-AFRICAN AMERICAN > 60
[2017-12-17] MEDS ORDERED: Pantoprazole 40 mg EC Tab PO SCH (07:30)
[2017-12-17 11:43] VITALS: BP 148/77; PULSE 82
[2017-12-17 11:44] VITALS: TEMP 98.1
--- NOTE | 2017-12-17 12:41 | CP.PCM.DIS ---
Provider - Provider Date of Admission: 12/15/17 23:08 Attending physician: Swathi Shine MD Primary care physician: Leigh Victor MD Time Spent in preparation of Discharge (in minutes): 40 Diagnosis - Discharge Diagnosis (1) Alcohol abuse Status: Chronic Priority: High (2) Hypertension Status: Chronic Priority: High (3) Atrial fibrillation Status: Chronic Priority: High (4) Hyperlipidemia Status: Chronic Priority: Medium (5) Depression Status: Chronic Priority: High (6) Coronary artery disease Status: Chronic Priority: High Hospital Course - Lab Results Lab Results: Most Recent Lab Values WBC 6.0 10^3/ul (4.5-11.0) D 12/17/17 05:45 RBC 4.30 10^6/uL (3.5-6.1) 12/17/17 05:45 Hgb 13.4 g/dL (14.0-18.0) L 12/17/17 05:45 Hct 39.1 % (42.0-52.0) L 12/17/17 05:45 MCV 90.9 fl (80.0-105.0) 12/17/17 05:45 MCH 31.2 pg (25.0-35.0) 12/17/17 05:45 MCHC 34.3 g/dl (31.0-37.0) 12/17/17 05:45 RDW 13.4 % (11.5-14.5) 12/17/17 05:45 Plt Count 200 10^3/uL (120.0-450.0) 12/17/17 05:45 MPV 10.2 fl (7.0-11.0) 12/17/17 05:45 Gran % 53.8 % (50.0-68.0) 12/17/17 05:45 Lymph % (Auto) 32.6 % (22.0-35.0) 12/17/17 05:45 Treasure % (Auto) 10.3 % (1.0-6.0) H 12/17/17 05:45 Eos % (Auto) 2.3 % (1.5-5.0) 12/17/17 05:45 Baso % (Auto) 1.0 % (0.0-3.0) 12/17/17 05:45 Gran # 3.24 (1.4-6.5) 12/17/17 05:45 Lymph # (Auto) 2.0 (1.2-3.4) 12/17/17 05:45 Treasure # (Auto) 0.6 (0.1-0.6) 12/17/17 05:45 Eos # (Auto) 0.1 (0.0-0.7) 12/17/17 05:45 Baso # (Auto) 0.06 K/mm3 (0.0-2.0) 12/17/17 05:45 APTT 26.6 Seconds (25.1-36.5) 12/15/17 13:50 Sodium 139 mmol/L (132-148) 12/17/17 05:45 Potassium 3.8 mmol/L (3.6-5.0) 12/17/17 05:45 Chloride 104 mmol/L (98-107) 12/17/17 05:45 Carbon Dioxide 27 mmol/L (21-33) 12/17/17 05:45 Anion Gap 12 (10-20) 12/17/17 05:45 BUN 11 mg/dL (7-21) 12/17/17 05:45 Creatinine 0.6 mg/dl (0.8-1.5) L 12/17/17 05:45 Est GFR ( Amer) > 60 12/17/17 05:45 Est GFR (Non-Af Amer) > 60 12/17/17 05:45 Random Glucose 90 mg/dL (70-110) 12/17/17 05:45 Calcium 8.6 mg/dL (8.4-10.5) 12/17/17 05:45 Phosphorus 2.9 mg/dL (2.5-4.5) 12/16/17 06:45 Magnesium 2.4 mg/dL (1.7-2.2) H 12/15/17 18:17 Total Bilirubin 0.9 mg/dL (0.2-1.3) 12/17/17 05:45 AST 53 U/L (17-59) 12/17/17 05:45 ALT 38 U/L (7-56) 12/17/17 05:45 Alkaline Phosphatase 80 U/L (38-126) 12/17/17 05:45 Lactate Dehydrogenase 795 U/L (333-699) H 12/15/17 13:50 Total Creatine Kinase 429 U/L (35-230) H 12/15/17 13:50 CK-MB (CK-2) 2.9 ng/mL (0.0-3.6) 12/15/17 13:50 CK-MB (CK-2) % Cancelled 12/15/17 13:50 Troponin I < 0.01 ng/mL 12/16/17 01:17 Total Protein 7.2 g/dL (5.8-8.3) 12/17/17 05:45 Albumin 3.9 g/dL (3.0-4.8) 12/17/17 05:45 Globulin 3.3 gm/dL 12/17/17 05:45 Albumin/Globulin Ratio 1.2 (1.1-1.8) 12/17/17 05:45 Amylase 64 U/L (35-125) 12/15/17 13:50 Lipase 174 U/L (23-300) 12/15/17 13:50 Urine Color Yellow (YELLOW) 12/15/17 13:50 Urine Appearance Sl cloudy (CLEAR) 12/15/17 13:50 Urine pH 6.0 (4.7-8.0) 12/15/17 13:50 Ur Specific [place] 1.010 (1.005-1.035) 12/15/17 13:50 Urine Protein 30 mg/dL (<30 mg/dL) H 12/15/17 13:50 Urine Glucose (UA) Negative mg/dL (NEGATIVE) 12/15/17 13:50 Urine Ketones Negative mg/dL (NEGATIVE) 12/15/17 13:50 Urine Blood Trace-intact (NEGATIVE) H 12/15/17 13:50 Urine Nitrate Negative (NEGATIVE) 12/15/17 13:50 Urine Bilirubin Negative (NEGATIVE) 12/15/17 13:50 Urine Urobilinogen 0.2 E.U./dL (<1 E.U./dL) 12/15/17 13:50 Ur Leukocyte Esterase Negative Shahzad/uL (NEGATIVE) 12/15/17 13:50 Urine RBC Negative /hpf (0-2) 12/15/17 13:50 Urine WBC Negative /hpf (0-6) 12/15/17 13:50 Urine Opiates Screen Negative (NEGATIVE) 12/15/17 13:50 Urine Methadone Screen Negative (NEGATIVE) 12/15/17 13:50 Ur Barbiturates Screen Negative (NEGATIVE) 12/15/17 13:50 Ur Phencyclidine Scrn Negative (NEGATIVE) 12/15/17 13:50 Ur Amphetamines Screen Negative (NEGATIVE) 12/15/17 13:50 U Benzodiazepines Scrn Negative (NEGATIVE) 12/15/17 13:50 U Oth Cocaine Metabols Negative (NEGATIVE) 12/15/17 13:50 U Cannabinoids Screen Negative (NEGATIVE) 12/15/17 13:50 - Hospital Course Hospital Course: Patient is a 56 M with a past medical history significant for for CAD s/p stent placement, ETOH abuse, depression, HLD, paroxysmal A.Fib not on anticoagulation due to non-compliance and chronic ETOH use, [place] [facility] [place] stating he wants help to quit drinking. He had been drking 12+ beers per day for about 2 weeks. Patient stated he was feeling stressed about life which drove him to start drinking after not having a drink for over 1 month. Patient stated he was in pain all over after drinking so much. During course of hospital stay, patient received ativan scheduled and PRN for his withdrawal symptoms. When he became stable and no longer showing signs of withdrawal, he was discharged. Patient was provided with a list of alcoholic anonymous groups by social work and provided with a work note, and then discharged with instructions to resume all medications. Case discussed with and reviewed with Dr. Mariaelena Rick PGY1 Discharge Exam - Head Exam Head Exam: ATRAUMATIC, NORMAL INSPECTION, NORMOCEPHALIC - Eye Exam Eye Exam: EOMI, Normal appearance - Respiratory Exam Respiratory Exam: Clear to PA & Lateral, UNREMARKABLE. absent: Wheezes, Respiratory Distress - Cardiovascular Exam Cardiovascular Exam: REGULAR RHYTHM, +S1, +S2 - GI/Abdominal Exam GI & Abdominal Exam: Normal Bowel Sounds, Unremarkable - Neurological Exam Neurological exam: Alert, CN II-XII Intact, Oriented x3 - Psychiatric Exam Psychiatric exam: Normal Affect, Normal Mood - Skin Skin Exam: Normal Color, Warm Discharge Plan - Discharge Medications Prescriptions: Folic Acid 1 mg PO DAILY #14 tab Folic Acid 1 mg PO DAILY #14 tab Thiamine [Vitamin B1 Tab] 100 mg PO DAILY #14 tab - Follow Up Plan Condition: GOOD Disposition: HOME/ ROUTINE Instructions: Alcohol Withdrawal (DC), Chest Pain (DC) Additional Instructions: 1. Please follow up with your PMD within 3-5 days. 2. Please take your multivitamins as prescribed and continue to take all your previous medications including your antihypertensives. 3. Please call and set an appoint with alcoholics anonymous from the list you were provided with from social work as discussed and try refrain from drinking 4. If symptoms worsen or return please go to your nearest emergency department. Referrals: Leigh Hester MD [Primary Care Provider] -
== END 2017-12-17 16:36 | disposition home or self-care (01) | DRG 897 ==
LOC: ED 12:17 → ERH 23:08 → 2RNO 12-16 02:09
PROVIDERS: ADMIT Internal Medicine; ATTEND Internal Medicine
DX: F10.129 Alcohol abuse with intoxication, unspecified (principal); E78.5 Hyperlipidemia, unspecified; F17.210 Nicotine dependence, cigarettes, uncomplicated; F32.89 Other specified depressive episodes; I11.0 Hypertensive heart disease with heart failure; I25.10 Atherosclerotic heart disease of native coronary artery without angina pectoris; I48.0 Paroxysmal atrial fibrillation; I50.9 Heart failure, unspecified; Z91.19 Patient's noncompliance with other medical treatment and regimen; Z95.5 Presence of coronary angioplasty implant and graft; Z87.19 Personal history of other diseases of the digestive system

== ENCOUNTER 2017-12-18 07:11 | Inpatient (IN) | payer MEDICAID, OTHER ==
[2017-12-18 07:13] VITALS: BMI 25.0
[2017-12-18] MEDS ORDERED: Sodium Chloride 0.9% 500 ML IV STA (07:15)
--- NOTE | 2017-12-18 07:19 | ED PDOC ---
Arrival/HPI - General Time Seen by Provider: 12/18/17 07:13 Historian: Patient, EMS - History of Present Illness Narrative History of Present Illness (Text): 12/18/17 07:16 Patient is a 57 yo male, past medical history of ETOH abuse, atrial fibrillation , past admission for alcohol withdrawal, cad with stent reportedly, presents to Emergency Department reportedly after neighbor found the patient "laying on the ground" at his apartment with "empty bottles of alcohol he was trying to drink. Patient states he has has "body pain all over". He currently denies chest pain or shortness of breath. Denies abdominal pain. Denies vomiting or bloody stools. Denies injury. Time/Duration: Prior to Arrival Past Medical History - Infectious Disease Hx of Infectious Diseases: None - Tetanus Immunization Tetanus Immunization: Unknown - Cardiac Hx Congestive Heart Failure: Yes (Paroxymal Afib) Hx Hypertension: Yes - Pulmonary Hx Respiratory Disorders: No - Neurological Hx Neurological Disorder: No - HEENT Hx HEENT Disorder: No - Renal Hx Renal Disorder: No - Endocrine/Metabolic Hx Endocrine Disorders: No - Hematological/Oncological Hx Blood Disorders: No - Integumentary Hx Dermatological Disorder: No - Musculoskeletal/Rheumatological Hx Falls: No - Gastrointestinal Hx Gastrointestinal Disorders: No - Genitourinary/Gynecological Hx Genitourinary Disorders: No - Psychiatric Hx Psychophysiologic Disorder: Yes Hx Depression: Yes Hx Substance Use: No Other/Comment: ETOH ABUSE - Past Surgical History Past Surgical History: No Previous - Surgical History Hx Cardiac Catheterization: Yes Hx Coronary Stent: Yes - Anesthesia Hx Anesthesia: Yes Hx Anesthesia Reactions: No Hx Malignant Hyperthermia: No - Suicidal Assessment Feels Threatened In Home Enviroment: No Family/Social History Family/Social History: Unknown Family HX Smoking Status: Never Smoked Hx Alcohol Use: Yes Amount per day: 5 Hx Substance Use: No Hx Substance Use Treatment: No Allergies/Home Meds Allergies/Adverse Reactions: Allergies No Known Allergies Allergy (Verified 12/18/17 16:03) Review of Systems - Review of Systems Systems not reviewed;Unavailable: Intoxicated Constitutional: absent: Fevers Respiratory: absent: SOB Cardiovascular: absent: Chest Pain Gastrointestinal: absent: Abdominal Pain, Vomiting, Hematochezia, Hematemesis Physical Exam - Physical Exam Physical Exam Limitations: Intoxication Vital Signs Reviewed: Yes Vital Signs Temp Pulse Resp BP Pulse Ox 06/23/18 13:16 108/84 12/18/17 13:14 98.6 F 84 18 108/84 96 12/18/17 11:48 90 18 163/88 H 98 12/18/17 07:48 98.0 F 99 H 18 145/92 H 98 Temperature: Afebrile Blood Pressure: Hypertensive Respiratory Rate: Normal Appearance: Positive for: Ill-Appearing, Unkept Pain Distress: None Mental Status: Positive for: Lethargic Finger Stick Blood Glucose: 84 - Systems Exam Head: Present: Atraumatic Pupils: Present: PERRL Extroacular Muscles: Present: EOMI Mouth: Present: Other (dried blood in ororpharynx, no lesions noted, ? small abrasion to lip, no dental avulsion) Pharnyx: No: Peritonsilar Swelling, Strider Neck: No: Meningeal Signs Respiratory/Chest: Present: Clear to Auscultation. No: Respiratory Distress Cardiovascular: Present: Regular Rate and Rhythm, Murmurs Abdomen: Present: Tenderness (mild diffuse tenderness). No: Peritoneal Signs Rectal: No: Gross Blood Back: No: Midline Tenderness Upper Extremity: No: Edema Lower Extremity: No: Edema Neurological: Present: Other (slurred speech, no facial droop, moves all four extremities well) Skin: Present: Warm Psychiatric: Present: Alert. No: Normal Insight, Normal Concentration, Suicidal Ideation, Homicidal Ideation Medical Decision Making ED Course and Treatment: 12/18/17 07:19 Patient is noted to have dried in oropharynx. He is unkempt and smells of alcohol. No signs of acute trauma noted. No focal motor weakness, although slurred speech I feel initially from intoxication. Will monitor, obtain labs, give IV fluids. Patient at high risk for withdrawal given review of past history. Dried blood noted in oropharynx but patient denies any vomiting although I feel he is unreliable historian given apparent intoxicated states and will assess for GI bleeding. 12/18/17 07:46 Patient became aggressive with staff and grabbed nurses arm, was unable to verbally assuage patient and he remained aggressive despite multiple attempts to speak to him. In likely intoxicated states he is potential harm to self and others, he was restrained so that we could complete workup and assessment and for patient and staff safety. Review of labs reveal elevated alcohol level, elevated CPK level. He is still unable to provide any history that he has been injured or fell. NO acute head injury noted. Suspect component of rhabdomyolysis, iv fluids given. Patient has had urine output. With serial exams, patient has become more agitated, tremulous, suspect likely component of ETOH withdrawal. No shortness of breath or respiratory distress noted. 12/18/17 10:[address] Flores, hospitalist compensation business partner, who is aware and agrees with Emergency department management plan, accepts patient under his service. Orophyarnyx cleansed. No deep laceration noted. No active bleeding or vomiting noted with serial exams. No bloody stools noted. - Lab Interpretations Lab Results: 12/18/17 06:30 12/18/17 06:30 Lab Results 12/18/17 07:15: Urine Color Yellow, Urine Appearance Sl cloudy, Urine pH 6.0, Ur Specific [place] <= 1.005, Urine Protein Negative, Urine Glucose (UA) Negative, Urine Ketones Negative, Urine Blood Trace-intact H, Urine Nitrate Negative, Urine Bilirubin Negative, Urine Urobilinogen 0.2, Ur Leukocyte Esterase Negative, Urine RBC 0 - 2, Urine WBC 0 - 2, Ur Epithelial Cells None 12/18/17 06:30: Salicylates < 1 L 12/18/17 06:30: PT 11.1, INR 0.97, APTT 27.5 12/18/17 06:30: WBC 9.9 D, RBC 4.72, Hgb 15.1, Hct 42.1, MCV 89.2, MCH 32.0, MCHC 35.9, RDW 13.2, Plt Count 257, MPV 10.3, Gran % 60.6, Lymph % (Auto) 30.8, [place] % (Auto) 7.3 H, Eos % (Auto) 0.7 L, Baso % (Auto) 0.6, Gran # 5.97, Lymph # (Auto) 3.0, [place] # (Auto) 0.7 H, Eos # (Auto) 0.1, Baso # (Auto) 0.06 12/18/17 06:30: Acetaminophen < 10.0 L 12/18/17 06:30: Alcohol, Quantitative 310 H* 12/18/17 06:30: Sodium 146, Potassium 3.7, Chloride 104, Carbon Dioxide 22, Anion Gap 24 H, BUN 8, Creatinine 0.7 L, Est GFR ( Amer) > 60, Est GFR ( Non-Af Amer) > 60, Random Glucose 90, Calcium 9.2, Magnesium 2.1, Total Bilirubin 0.5, AST 117 H D, ALT 51, Alkaline Phosphatase 85, Lactate Dehydrogenase 1166 H, Total Creatine Kinase 2725 H, CK-MB (CK-2) 17.0 H, CK-MB ( CK-2) % 0.6 L, Troponin I < 0.01, Total Protein 8.5 H, Albumin 4.9 H, Globulin 3.6, Albumin/Globulin Ratio 1.4, Lipase 144 - EKG Interpretation Interpreted by ED Physician: Yes Type: 12 lead EKG - Medication Orders Current Medication Orders: Amlodipine Besylate (Norvasc) 5 mg PO DAILY [facility] Last Admin: 12/18/17 16:01 Dose: Not Given Non-Admin Reason: BP Parameters Not Met Aspirin (Aspirin Chewable) 81 mg PO DAILY [facility] Chlordiazepoxide (Librium) 25 mg PO Q6 [facility] Last Admin: 12/18/17 16:09 Dose: Clonidine HCl (Catapres) 0.1 mg PO BID PRN PRN Reason: Systolic Blood Pressure Enoxaparin Sodium (Lovenox) 40 mg SC DAILY [facility] PRN Reason: Protocol Last Admin: 12/18/17 17:05 Dose: 40 mg Subcutaneous Administrations Document 12/18/17 17:05 (Rec: 12/18/17 17:05 [id number]) Injection Site MAR Injection Site Right Abdomen Charges for Administration # of Subcutaneous Administrations 1 Folic Acid (Folic Acid) 1 mg PO DAILY [facility] Multivitamins/Vitamin C 10 ml/Thiamine HCl 100 mg/ Folic Acid 1 mg/ Sodium Chloride 1,011.2 mls @ 100 mls/hr IV .Q10H7M ONE Stop: 12/18/17 20:06 Last Admin: 12/18/17 10:44 Dose: 100 mls/hr eMAR Start Stop Document 12/18/17 10:44 GMD (Rec: 12/18/17 10:45 GMD [id number]) Intravenous Solution Start Date 12/18/17 Start Time 10:44 Lorazepam (Ativan) 2 mg IVP Q6H PRN PRN Reason: Symptoms of alcohol withdrawl Lorazepam (Ativan) 1 mg IVP Q1H PRN; Protocol PRN Reason: Agitation Multivitamins/Minerals (Therapeutic-M Tab) 1 tab PO DAILY [facility] Pantoprazole Sodium (Protonix Ec Tab) 40 mg PO ACB [facility] Thiamine HCl (Vitamin B1 Tab) 100 mg PO DAILY [facility] Discontinued Medications Chlordiazepoxide (Librium) 25 mg PO Q8H [facility] Last Admin: 12/18/17 13:16 Dose: 25 mg Re-Assess: Reassess Psych Meds Document 12/18/17 14:16 (Rec: 12/18/17 15:55 [id number] Reassess Psych Med Effective Clonidine HCl (Catapres) 0.1 mg PO STAT [facility] Stop: 12/18/17 12:49 Last Admin: 12/18/17 13:16 Dose: Not Given Non-Admin Reason: BP Parameters Not Met MAR Pulse and Blood Pressure Document 12/18/17 13:16 GMD (Rec: 12/18/17 13:17 GMD [id number]) Blood Pressure Blood Pressure (100/60-150/90) 108/84 Sodium Chloride (Sodium Chloride 0.9%) 500 mls @ 1,000 mls/hr IV .Q30M STA Stop: 12/18/17 07:44 Last Admin: 12/18/17 09:02 Dose: 1,000 mls/hr eMAR Start Stop Document 12/18/17 09:02 GMD (Rec: 12/18/17 09:03 GMD [id number]) Intravenous Solution Start Date 12/18/17 Start Time 09:02 End Date 12/18/17 End time 09:32 Total Infusion Time 30 Sodium Chloride (Sodium Chloride 0.9%) 1,000 mls @ 1,000 mls/hr IV .Q1H STA Stop: 12/18/17 09:15 Last Admin: 12/18/17 08:20 Dose: 1,000 mls/hr eMAR Start Stop Document 12/18/17 08:20 GMD (Rec: 12/18/17 08:22 GMD [id number]) Intravenous Solution Start Date 12/18/17 Start Time 08:22 End Date 12/18/17 End time 09:22 Total Infusion Time 60 Lorazepam (Ativan) 1 mg IVP ONCE ONE Stop: 12/18/17 09:11 Last Admin: 12/18/17 09:25 Dose: 1 mg IVP Administration Document 12/18/17 09:25 GMD (Rec: 12/18/17 09:25 D [id number]) Charges for Administration # of IVP Administrations 1 Pantoprazole Sodium (Protonix Inj) 40 mg IVP ONCE STA Stop: 12/18/17 07:16 Last Admin: 12/18/17 08:59 Dose: 40 mg IVP Administration Document 12/18/17 08:59 GMD (Rec: 12/18/17 09:00 D [id number]) Charges for Administration # of IVP Administrations 1 Pneumococcal Polyvalent Vaccine (Pneumovax 23 Vaccine) 0.5 ml IM .ONCE ONE Stop: 12/18/17 16:38 Disposition/Present on Arrival - Present on Arrival Any Indicators Present on Arrival: No History of DVT/PE: No History of Uncontrolled Diabetes: No Urinary Catheter: No History Surgical Site Infection Following: None - Disposition Have Diagnosis and Disposition been Completed?: Yes Diagnosis: Alcohol intoxication, Alcohol withdrawal, Rhabdomyolysis Disposition: HOSPITALIZED Disposition Time: 09:45 Patient Plan: Admission, Telemetry Patient Problems: Current Active Problems Problem Status Onset Alcohol intoxication Acute Alcohol withdrawal Acute Rhabdomyolysis Acute Condition: FAIR
[2017-12-18 07:59] LABS: BASO # 0.06 K/mm3 (0.0-2.0); BASO % 0.6 % (0.0-3.0); EOS # 0.1 (0.0-0.7); EOS % 0.7 % (1.5-5.0); GRAN # 5.97 (1.4-6.5); GRAN % 60.6 % (50.0-68.0); HEMOGLOBIN 15.1 g/dL (14.0-18.0); LYMPH % 30.8 % (22.0-35.0); MEAN CELL VOLUME 89.2 fl (80.0-105.0); MEAN CORPUSCULAR HGB CONC 35.9 g/dl (31.0-37.0); MEAN PLATELET VOLUME 10.3 fl (7.0-11.0); MONO # 0.7 (0.1-0.6); MONO % 7.3 % (1.0-6.0); RBC 4.72 10^6/uL (3.5-6.1); RED CELL DISTRIBUTION WIDTH 13.2 % (11.5-14.5); WHITE BLOOD COUNT 9.9 10^3/ul (4.5-11.0)
[2017-12-18 08:05] LABS: INR 0.97 (0.93-1.08); PARTIAL THROMBOPLASTIN TIME 27.5 Seconds (25.1-36.5); PROTHROMBIN TIME 11.1 SECONDS (9.4-12.5)
[2017-12-18 08:14] LABS: ALB/GLOB RATIO 1.4 (1.1-1.8); ALBUMIN 4.9 g/dL (3.0-4.8); ALT/SGPT 51 U/L (7-56); AST/SGOT 117 U/L (17-59); BLOOD UREA NITROGEN 8 mg/dL (7-21); CALCIUM 9.2 mg/dL (8.4-10.5); GFR AFRICAN-AMERICAN > 60; GFR NON-AFRICAN AMERICAN > 60; LIPASE 144 U/L (23-300)
[2017-12-18 08:15] LABS: TROPONIN I < 0.01 ng/mL
[2017-12-18] MEDS ORDERED: Sodium Chloride 0.9% 1,000 ML IV STA (08:16)
[2017-12-18 09:28] LABS: CK MB% 0.6 % (2.5-3.0)
[2017-12-18] MEDS ORDERED: Multivitamin (MVI) 10 ML, Thiamine 100 MG, Folic Acid 1 MG in Sodium Chloride 0.9% 1,00... IV ONE (10:00)
[2017-12-18 10:18] LABS: URINE BILIRUBIN NEGATIVE (NEGATIVE); URINE BLOOD TRACE-INTACT (NEGATIVE); URINE GLUCOSE (UA) NEGATIVE (NEGATIVE); URINE LEUKOCYTE ESTERASE NEGATIVE Leu/uL (NEGATIVE); URINE PROTEIN NEGATIVE mg/dL (<30 mg/dL); URINE UROBILINOGEN 0.2 E.U./dL (<1 E.U./dL)
[2017-12-18 10:21] LABS: URINE APPEARANCE SL CLOUDY (CLEAR); URINE COLOR YELLOW (YELLOW)
[2017-12-18 11:04] LABS: URINE RBC 0 - 2 /hpf (0-2); URINE WBC 0 - 2 /hpf (0-6)
--- NOTE | 2017-12-18 11:50 | CARD ---
APPROVED REPORT EKG Measurement Heart [id number] <Conclusion> Normal sinus rhythm Possible Anterior infarct, age undetermined Abnormal ECG
[2017-12-18 12:05] LABS: BARBITURATES, UR NEGATIVE (NEGATIVE); BENZODIAZEPINES, UR NEGATIVE (NEGATIVE); OPIATES, UR NEGATIVE (NEGATIVE); PHENCYCLIDINE, UR NEGATIVE (NEGATIVE)
--- NOTE | 2017-12-18 12:50 | CP.PCM.HP ---
<Kelsey Beltrán - Last Filed: 12/18/17 16:15> History of Present Illness - History of Present Illness History of Present Illness: H&P for HospitalistVelvet PGY2 This is a 57yo male with past medical history of CAD s/p stent, alcoholism, HTN , paroxysmal a.fib, tobacco abuse who was brought in by ambulance because his neighbor found him laying on the ground in his apartment surrounded by empty alcohol bottles. In ED, patient was found to be intoxicated with elevated alcohol levels as well as agitated and had to be partially restrained. He was also found to have some dried blood below his bottom lip. Patient reports he does not know where that came from. He states he drank 4 large beers last night and does not remember if he fell or hit his head. He denies nausea/vomiting/ diarrhea, fever/chills, abdominal pain, melena/hematochezia, chest pain, shortness of breath, numbness/tingling, visual or auditory hallucinations. His only complaint is that he is thirsty. Past medical history: CAD s/p stent, alcoholism, HTN, paroxysmal a.fib Past surgical history: PCI Home meds: Reviewed (patient is non-compliant and not taking any) Allergies: NKDA Social history: Smokes 1/2 ppd, Drinks 15+ beers per day. Denies drug use. Family history: Non-contributory Present on Admission - Present on Admission Any Indicators Present on Admission: No Review of Systems - Review of Systems All systems: reviewed and no additional remarkable complaints except Review of Systems: 12 point ROS reviewed as per HPI Past Patient History - Infectious Disease Hx of Infectious Diseases: None - Tetanus Immunizations Tetanus Immunization: Unknown - Past Social History Smoking Status: Never Smoked - CARDIAC Hx Congestive Heart Failure: Yes (Paroxymal Afib) Hx Hypertension: Yes - PULMONARY Hx Respiratory Disorders: No - NEUROLOGICAL Hx Neurological Disorder: No - HEENT Hx HEENT Problems: No - RENAL Hx Chronic Kidney Disease: No - ENDOCRINE/METABOLIC Hx Endocrine Disorders: No - HEMATOLOGICAL/ONCOLOGICAL Hx Blood Disorders: No - INTEGUMENTARY Hx Dermatological Problems: No - MUSCULOSKELETAL/RHEUMATOLOGICAL Hx Falls: No - GASTROINTESTINAL Hx Gastrointestinal Disorders: No - GENITOURINARY/GYNECOLOGICAL Hx Genitourinary Disorders: No - PSYCHIATRIC Hx Psychophysiologic Disorder: Yes Hx Depression: Yes Hx Substance Use: No Other/Comment: ETOH ABUSE - SURGICAL HISTORY Hx Cardiac Catheterization: Yes Hx Coronary Stent: Yes - ANESTHESIA Hx Anesthesia: Yes Hx Anesthesia Reactions: No Hx Malignant Hyperthermia: No Meds Allergies/Adverse Reactions: Allergies Allergy/AdvReac Type Severity Reaction Status Date / Time No Known Allergies Allergy Verified 12/18/17 16:03 Physical Exam - Head Exam Head Exam: NORMAL INSPECTION, NORMOCEPHALIC - Eye Exam Eye Exam: Normal appearance, PERRL Pupil Exam: NORMAL ACCOMODATION, PERRL - ENT Exam ENT Exam: Mucous Membranes Moist Additional comments: cut underneath tongue. some dried blood under bottom lip. Small abrasion below L nare - Respiratory Exam Respiratory Exam: Clear to Auscultation Bilateral, NORMAL BREATHING PATTERN. absent: Rales, Rhonchi, Wheezes - Cardiovascular Exam Cardiovascular Exam: REGULAR RHYTHM, +S1, +S2. absent: Gallop, Rubs, Systolic Murmur - GI/Abdominal Exam GI & Abdominal Exam: Normal Bowel Sounds, Soft. absent: Mass, Rebound, Rigid, Tenderness - Extremities Exam Extremities exam: Positive for: normal inspection. Negative for: calf tenderness, pedal edema - Neurological Exam Neurological exam: Alert - Psychiatric Exam Psychiatric exam: Normal Affect, Normal Mood - Skin Skin Exam: Dry, Warm Results - Vital Signs Recent Vital Signs: Last Vital Signs Temp 98.0 F 12/18/17 07:48 Pulse 90 12/18/17 11:48 Resp 18 12/18/17 11:48 BP 163/88 H 12/18/17 11:48 Pulse Ox 98 12/18/17 11:48 - Labs Result Diagrams: 12/18/17 06:30 12/18/17 06:30 Labs: Laboratory Results - last 24 hr 12/18/17 12/18/17 10:40 11:08 Urine Opiates Screen Negative Urine Methadone Screen Negative Ur Barbiturates Screen Negative Ur Phencyclidine Scrn Negative Ur Amphetamines Screen Negative U Benzodiazepines Scrn Negative U Oth Cocaine Metabols Negative U Cannabinoids Screen Negative Blood Type AB POSITIVE Antibody Screen Negative BBK History Checked Patient has bt Assessment & Plan - Assessment and Plan (Free Text) Assessment: This is a 57yo male with past medical history of CAD s/p stent, alcoholism, HTN , paroxysmal a.fib, tobacco abuse and medication non-compliance who is admitted for alcohol intoxication and rhabdomyolysis. Plan: 1. Alcohol intoxication/withdrawal - CIWA protocol - Fall/seizure/aspiration precaution (passed bedside swallow) - Librium 25mg q8h, Ativan 2q6 IVP prn - Banana bag then Multivitamin, folic acid, thiamine - UDS negative for drugs - Patient counseled on alcohol cessation 2. Rhabdomyolysis - CK elevated - IV fluids (Banana bag@100) - Will recheck in AM 3. HTN - Norvasc 5mg daily - Clonidine 0.1 BID prn SBP >150 4. Hx of CAD - Will start patient on ASA and Lipitor 5. Hx of paroxysmal a.fib - EKG showed NSR @92 bpm - will continue to monitor 6. Tobacco abuse - Patient counseled on smoking cessation 7. Tongue abrasion - no active bleeding seen - Hgb stable. Will continue to monitor H/H GI ppx: Protonix DVT ppx: Lovenox Case seen, discussed and reviewed with Dr. Buckley. Velvet Beltrán PGY2 - Date & Time Date: 12/18/17 Time: 13:00 <Norma Buckley - Last Filed: 12/18/17 23:08> Results - Vital Signs Recent Vital Signs: Last Vital Signs Temp 98 F 12/18/17 17:53 Pulse 114 H 12/18/17 18:00 Resp 18 12/18/17 17:53 BP 145/80 12/18/17 17:53 Pulse Ox 98 12/18/17 17:53 - Labs Result Diagrams: 12/18/17 06:30 12/18/17 06:30 Labs: Laboratory Results - last 24 hr 12/18/17 12/18/17 10:40 11:08 Urine Opiates Screen Negative Urine Methadone Screen Negative Ur Barbiturates Screen Negative Ur Phencyclidine Scrn Negative Ur Amphetamines Screen Negative U Benzodiazepines Scrn Negative U Oth Cocaine Metabols Negative U Cannabinoids Screen Negative Blood Type AB POSITIVE Antibody Screen Negative BBK History Checked Patient has bt Attending/Attestation - Attestation I have personally seen and examined this patient.: Yes I have fully participated in the care of the patient.: Yes I have reviewed all pertinent clinical information: Yes
[2017-12-18] MEDS ORDERED: Pneumococcal 23-Valent Vaccine IM ONE (16:37)
[2017-12-18] MEDS: Enoxaparin 40 mg Syringe SC SCH (17:05)
[2017-12-19 07:24] LABS: HEMOGLOBIN 13.3 g/dL (14.0-18.0); MEAN CELL VOLUME 90.8 fl (80.0-105.0); MEAN CORPUSCULAR HEMOGLOBIN 31.5 pg (25.0-35.0); MEAN CORPUSCULAR HGB CONC 34.7 g/dl (31.0-37.0); MEAN PLATELET VOLUME 10.4 fl (7.0-11.0); RBC 4.22 10^6/uL (3.5-6.1); RED CELL DISTRIBUTION WIDTH 13.5 % (11.5-14.5); WHITE BLOOD COUNT 6.6 10^3/ul (4.5-11.0)
[2017-12-19] MEDS ORDERED: Pantoprazole 40 mg EC Tab PO SCH (07:30)
[2017-12-19 07:43] LABS: ALB/GLOB RATIO 1.3 (1.1-1.8); ALBUMIN 3.9 g/dL (3.0-4.8); ALT/SGPT 46 U/L (7-56); AST/SGOT 87 U/L (17-59); BLOOD UREA NITROGEN 10 mg/dL (7-21); CALCIUM 8.5 mg/dL (8.4-10.5); GFR AFRICAN-AMERICAN > 60; GFR NON-AFRICAN AMERICAN > 60
[2017-12-19] MEDS: Enoxaparin 40 mg Syringe SC SCH (09:36)
[2017-12-19 09:41] VITALS: RESP 18; O2SAT 96
[2017-12-19] MEDS ORDERED: Multivitamin With Minerals Tab PO SCH (10:00)
--- NOTE | 2017-12-19 10:31 | CT ---
PROCEDURE: CT HEAD WITHOUT CONTRAST. HISTORY: Intoxication COMPARISON: Comparison CT scan dated 10/18/2017 the TECHNIQUE: Axial computed tomography images were obtained through the head/brain without intravenous contrast. Radiation dose: Total exam DLP = 866.1 mGy-cm. This CT exam was performed using one or more of the following dose reduction techniques: Automated exposure control, adjustment of the mA and/or kV according to patient size, and/or use of iterative reconstruction technique. FINDINGS: HEMORRHAGE: No acute parenchymal, subarachnoid or extra-axial hemorrhage. BRAIN: Minor diffuse/confluent chronic periventricular white matter ischemic changes felt be present. No evidence of large acute infarct. Mild generalized volume loss. VENTRICLES: Unremarkable. No hydrocephalus. CALVARIUM: No acute calvarial fractures. There are scarring changes seen in the right frontal scalp PARANASAL SINUSES: There is sclerosis of thickening evans of the left maxillary antrum of with mild mucosal thickening. . Minor sclerotic thickening changes posterolateral wall right maxillary antrum. . Minor focus of mucosal thickening right aspect of the frontal sinus. Focal the rightward deviation of the nasal septum. MASTOID AIR CELLS: Mastoid air complexes remain sclerotic and underpneumatized OTHER FINDINGS: None. IMPRESSION: No acute intracranial hemorrhage. Mild chronic white matter ischemic changes. Mild generalized volume loss.
[2017-12-19 12:09] VITALS: BP 165/98; PULSE 78; TEMP 97.8
[2017-12-19 12:20] LABS: CK MB% 0.5 % (2.5-3.0); CK-MB 5.1 ng/mL (0.0-3.6)
--- NOTE | 2017-12-19 14:09 | RAD ---
HISTORY: r/o aspiration COMPARISON: Comparison chest dated 12/15/2017 FINDINGS: LUNGS: No active pulmonary disease. PLEURA: No significant pleural effusion identified, no pneumothorax apparent. CARDIOVASCULAR: Mild cardiomegaly theNormal. OSSEOUS STRUCTURES: No significant abnormalities. VISUALIZED UPPER ABDOMEN: Normal. OTHER FINDINGS: None. IMPRESSION: No active disease.
--- NOTE | 2017-12-19 16:07 | CP.PCM.DIS ---
Provider - Provider Date of Admission: 12/18/17 10:28 Attending physician: Sweta Flores MD Time Spent in preparation of Discharge (in minutes): 35 Diagnosis - Discharge Diagnosis (1) Alcohol withdrawal Status: Acute Hospital Course - Lab Results Lab Results: Most Recent Lab Values WBC 6.6 10^3/ul (4.5-11.0) D 12/19/17 06:30 RBC 4.22 10^6/uL (3.5-6.1) 12/19/17 06:30 Hgb 13.3 g/dL (14.0-18.0) L 12/19/17 06:30 Hct 38.3 % (42.0-52.0) L 12/19/17 06:30 MCV 90.8 fl (80.0-105.0) 12/19/17 06:30 MCH 31.5 pg (25.0-35.0) 12/19/17 06:30 MCHC 34.7 g/dl (31.0-37.0) 12/19/17 06:30 RDW 13.5 % (11.5-14.5) 12/19/17 06:30 Plt Count 188 10^3/uL (120.0-450.0) 12/19/17 06:30 MPV 10.4 fl (7.0-11.0) 12/19/17 06:30 Gran % 60.6 % (50.0-68.0) 12/18/17 06:30 Lymph % (Auto) 30.8 % (22.0-35.0) 12/18/17 06:30 [place] % (Auto) 7.3 % (1.0-6.0) H 12/18/17 06:30 Eos % (Auto) 0.7 % (1.5-5.0) L 12/18/17 06:30 Baso % (Auto) 0.6 % (0.0-3.0) 12/18/17 06:30 Gran # 5.97 (1.4-6.5) 12/18/17 06:30 Lymph # (Auto) 3.0 (1.2-3.4) 12/18/17 06:30 [place] # (Auto) 0.7 (0.1-0.6) H 12/18/17 06:30 Eos # (Auto) 0.1 (0.0-0.7) 12/18/17 06:30 Baso # (Auto) 0.06 K/mm3 (0.0-2.0) 12/18/17 06:30 PT 11.1 SECONDS (9.4-12.5) 12/18/17 06:30 INR 0.97 (0.93-1.08) 12/18/17 06:30 APTT 27.5 Seconds (25.1-36.5) 12/18/17 06:30 Sodium 140 mmol/L (132-148) 12/19/17 06:30 Potassium 3.6 mmol/L (3.6-5.0) 12/19/17 06:30 Chloride 105 mmol/L (98-107) 12/19/17 06:30 Carbon Dioxide 24 mmol/L (21-33) 12/19/17 06:30 Anion Gap 14 (10-20) 12/19/17 06:30 BUN 10 mg/dL (7-21) 12/19/17 06:30 Creatinine 0.6 mg/dl (0.8-1.5) L 12/19/17 06:30 Est GFR ( Amer) > 60 12/19/17 06:30 Est GFR (Non-Af Amer) > 60 12/19/17 06:30 Random Glucose 83 mg/dL (70-110) 12/19/17 06:30 Calcium 8.5 mg/dL (8.4-10.5) 12/19/17 06:30 Phosphorus 3.1 mg/dL (2.5-4.5) 12/19/17 06:30 Magnesium 2.0 mg/dL (1.7-2.2) 12/19/17 06:30 Total Bilirubin 0.8 mg/dL (0.2-1.3) 12/19/17 06:30 AST 87 U/L (17-59) H D 12/19/17 06:30 ALT 46 U/L (7-56) 12/19/17 06:30 Alkaline Phosphatase 88 U/L (38-126) 12/19/17 06:30 Lactate Dehydrogenase 706 U/L (333-699) H 12/19/17 06:30 Total Creatine Kinase 1073 U/L (35-230) H 12/19/17 06:30 CK-MB (CK-2) 5.1 ng/mL (0.0-3.6) H 12/19/17 06:30 CK-MB (CK-2) % 0.5 % (2.5-3.0) L 12/19/17 06:30 Troponin I < 0.01 ng/mL 12/18/17 06:30 Total Protein 7.0 g/dL (5.8-8.3) 12/19/17 06:30 Albumin 3.9 g/dL (3.0-4.8) 12/19/17 06:30 Globulin 3.1 gm/dL 12/19/17 06:30 Albumin/Globulin Ratio 1.3 (1.1-1.8) 12/19/17 06:30 Lipase 144 U/L (23-300) 12/18/17 06:30 Urine Color Yellow (YELLOW) 12/18/17 07:15 Urine Appearance Sl cloudy (CLEAR) 12/18/17 07:15 Urine pH 6.0 (4.7-8.0) 12/18/17 07:15 Ur Specific [place] <= 1.005 (1.005-1.035) 12/18/17 07:15 Urine Protein Negative mg/dL (<30 mg/dL) 12/18/17 07:15 Urine Glucose (UA) Negative mg/dL (NEGATIVE) 12/18/17 07:15 Urine Ketones Negative mg/dL (NEGATIVE) 12/18/17 07:15 Urine Blood Trace-intact (NEGATIVE) H 12/18/17 07:15 Urine Nitrate Negative (NEGATIVE) 12/18/17 07:15 Urine Bilirubin Negative (NEGATIVE) 12/18/17 07:15 Urine Urobilinogen 0.2 E.U./dL (<1 E.U./dL) 12/18/17 07:15 Ur Leukocyte Esterase Negative [place]/uL (NEGATIVE) 12/18/17 07:15 Urine RBC 0 - 2 /hpf (0-2) 12/18/17 07:15 Urine WBC 0 - 2 /hpf (0-6) 12/18/17 07:15 Ur Epithelial Cells None /hpf (0-5) 12/18/17 07:15 Salicylates < 1 mg/dL (2.0-20.0) L 12/18/17 06:30 Urine Opiates Screen Negative (NEGATIVE) 12/18/17 10:40 Urine Methadone Screen Negative (NEGATIVE) 12/18/17 10:40 Acetaminophen < 10.0 ug/ml (10.0-20.0) L 12/18/17 06:30 Ur Barbiturates Screen Negative (NEGATIVE) 12/18/17 10:40 Ur Phencyclidine Scrn Negative (NEGATIVE) 12/18/17 10:40 Ur Amphetamines Screen Negative (NEGATIVE) 12/18/17 10:40 U Benzodiazepines Scrn Negative (NEGATIVE) 12/18/17 10:40 U Oth Cocaine Metabols Negative (NEGATIVE) 12/18/17 10:40 U Cannabinoids Screen Negative (NEGATIVE) 12/18/17 10:40 Alcohol, Quantitative 310 mg/dL (0-10) H* 12/18/17 06:30 Blood Type AB POSITIVE 12/18/17 11:08 Antibody Screen Negative 12/18/17 11:08 BBK History Checked Patient has bt 12/18/17 11:08 - Hospital Course Hospital Course: 57yo male with past medical history of CAD s/p stent, alcoholism, HTN, paroxysmal a.fib, tobacco abuse who was brought in by ambulance because his neighbor found him laying on the ground in his apartment surrounded by empty alcohol bottles. In ED, patient was found to be intoxicated with elevated alcohol levels as well as agitated and had to be partially restrained. He was also found to have some dried blood below his bottom lip. Patient had a head CT which was negative. He was admitted and treated for alcohol withdrawal with vitamin supplementation and tapering doses of benzodiazepines. Today, patient is awake, alert, oriented to person, place, and time. He is walking around the halls with a steady gait. He denies pain, confusion, shortness of breath, hallucinations, tremor. He is requesting to go home so he can go to work tomorrow. Patient was counselled on alcohol abstinence. Patient verbalized understanding, and agreed to go to AA meetings and to seek a sponsor. Patient was discharged home. Discharge Exam - Head Exam Head Exam: NORMAL INSPECTION, NORMOCEPHALIC - Eye Exam Eye Exam: EOMI, Normal appearance, PERRL Pupil Exam: NORMAL ACCOMODATION, PERRL - Respiratory Exam Respiratory Exam: Clear to PA & Lateral, NORMAL BREATHING PATTERN - Cardiovascular Exam Cardiovascular Exam: REGULAR RHYTHM - GI/Abdominal Exam GI & Abdominal Exam: Normal Bowel Sounds, Soft. absent: Tenderness - Neurological Exam Neurological exam: Alert, CN II-XII Intact, Normal Gait, Oriented x3, Reflexes Normal - Psychiatric Exam Psychiatric exam: Normal Affect, Normal Mood - Skin Skin Exam: Dry, Intact, Normal Color, Warm Discharge Plan - Follow Up Plan Condition: FAIR Disposition: HOME/ ROUTINE Instructions: Alcohol Abuse and Alcoholism (DC), Alcohol Intoxication (DC), Alcohol Use Disorder (DC) Additional Instructions: Follow up with your primary care doctor within one week, or come to the [facility] You must stop drinking alcohol, as discussed. Attend alcoholics anonymous meetings, seek a sponsor, utilize family support. Continue all medications as previously prescribed Return to the ER for any new or worsening concerns
== END 2017-12-19 14:46 | disposition home or self-care (01) | DRG 750 ==
LOC: ED 07:11 → ERH 10:28 → 2RSO 14:19
PROVIDERS: ADMIT Internal Medicine; ATTEND Internal Medicine
DX: F10.239 Alcohol dependence with withdrawal, unspecified (principal); M62.82 Rhabdomyolysis; I11.0 Hypertensive heart disease with heart failure; I50.9 Heart failure, unspecified; F10.229 Alcohol dependence with intoxication, unspecified; I48.0 Paroxysmal atrial fibrillation; I25.10 Atherosclerotic heart disease of native coronary artery without angina pectoris; Z95.5 Presence of coronary angioplasty implant and graft; Z91.19 Patient's noncompliance with other medical treatment and regimen; Z91.14 Patient's other noncompliance with medication regimen; F17.210 Nicotine dependence, cigarettes, uncomplicated; Y90.8 Blood alcohol level of 240 mg/100 ml or more

== ENCOUNTER 2017-12-19 19:45 | Emergency (ER) | payer MEDICAID, OTHER ==
[2017-12-19 19:45] VITALS: BMI 25.0
== END 2017-12-19 20:20 | disposition left against medical advice (07) ==
LOC: ED 19:45
DX: Z02.89 Encounter for other administrative examinations (principal)

== ENCOUNTER 2017-12-19 20:21 | Emergency (ER) | payer MEDICAID, OTHER ==
[2017-12-19 20:21] VITALS: BMI 25.0
[2017-12-19 20:26] VITALS: RESP 18; O2SAT 96
[2017-12-19] MEDS ORDERED: Multivitamin (MVI) 10 ML, Thiamine 100 MG, Folic Acid 1 MG in Sodium Chloride 0.9% 1,00... IV ONE (20:51)
--- NOTE | 2017-12-19 20:55 | ED PDOC ---
Arrival/HPI <Omar Eubanks - Last Filed: 12/19/17 22:46> - General Historian: Patient - History of Present Illness Time/Duration: 4-6 hours Symptom Onset: Sudden Severity Level: 2 <Ramesh Fraga - Last Filed: 12/22/17 11:39> - General Chief Complaint: Alcohol Ingestion Time Seen by Provider: 12/19/17 20:28 - History of Present Illness Narrative History of Present Illness (Text): 57 year old male with PMH of alcohol abuse presents with request for detox from alcohol. Patient states he has 6 beers today at 3 pm. He also says he has some SOB. He states he has been drinking heavily for 2 weeks now. He denies Chest pain, fever, chills, abdominal pain, palpitations, or any other complaints at this time. 12/19/17 20:52 (Ramesh Fraga) Past Medical History - Provider Review Nursing Documentation Reviewed: Yes - Infectious Disease Hx of Infectious Diseases: None - Tetanus Immunization Tetanus Immunization: Unknown - Cardiac Hx Congestive Heart Failure: Yes (Paroxymal Afib) Hx Hypertension: Yes - Pulmonary Hx Respiratory Disorders: No - Neurological Hx Neurological Disorder: No - HEENT Hx HEENT Disorder: No - Renal Hx Renal Disorder: No - Endocrine/Metabolic Hx Endocrine Disorders: No - Hematological/Oncological Hx Blood Disorders: No - Integumentary Hx Dermatological Disorder: No - Musculoskeletal/Rheumatological Hx Falls: No - Gastrointestinal Hx Gastrointestinal Disorders: No - Genitourinary/Gynecological Hx Genitourinary Disorders: No - Psychiatric Hx Psychophysiologic Disorder: Yes Hx Depression: Yes Hx Substance Use: No Other/Comment: ETOH ABUSE - Past Surgical History Past Surgical History: No Previous - Surgical History Hx Cardiac Catheterization: Yes Hx Coronary Stent: Yes - Anesthesia Hx Anesthesia: Yes Hx Anesthesia Reactions: No Hx Malignant Hyperthermia: No - Suicidal Assessment Feels Threatened In Home Enviroment: No <Ramesh Fraga - Last Filed: 12/22/17 11:39> Family/Social History - Physician Review Nursing Documentation Reviewed: Yes Family/Social History: No Known Family HX Smoking Status: Never Smoked Hx Alcohol Use: Yes Amount per day: 5 Hx Substance Use: No Hx Substance Use Treatment: No <Ramesh Fraga - Last Filed: 12/22/17 11:39> Allergies/Home Meds <Omar Eubanks - Last Filed: 12/19/17 22:46> <FragaRamesh - Last Filed: 12/22/17 11:39> Allergies/Adverse Reactions: Allergies No Known Allergies Allergy (Verified 12/19/17 20:44) Review of Systems - Review of Systems Constitutional: Normal Eyes: Normal ENT: Normal Respiratory: SOB. absent: Cough, Sputum Cardiovascular: Normal. absent: Chest Pain, Palpitations Gastrointestinal: Normal. absent: Abdominal Pain, Nausea, Vomiting Genitourinary Male: Normal Musculoskeletal: Normal Skin: Normal Neurological: Normal Endocrine: Normal Hemo/Lymphatic: Normal Psychiatric: Normal <Ramesh Fraga - Last Filed: 12/22/17 11:39> Physical Exam Vital Signs Reviewed: Yes Temperature: Afebrile Blood Pressure: Normal Pulse: Tachycardic Respiratory Rate: Normal Appearance: Positive for: Comfortable, Unkept Pain Distress: None Mental Status: Positive for: Alert and Oriented X 3 - Systems Exam Head: Present: Atraumatic, Normocephalic Pupils: Present: PERRL Extroacular Muscles: Present: EOMI Conjunctiva: Present: Normal Mouth: Present: Moist Mucous Membranes Neck: Present: Normal Range of Motion Respiratory/Chest: Present: Clear to Auscultation. No: Respiratory Distress Cardiovascular: Present: Normal S1, S2, Tachycardic Abdomen: Present: Normal Bowel Sounds. No: Tenderness, Distention Upper Extremity: No: Edema Lower Extremity: No: Edema Neurological: Present: CN II-XII Intact Skin: Present: Warm Psychiatric: Present: Alert, Oriented x 3 <Ramesh Fraga - Last Filed: 12/22/17 11:39> Vital Signs Temp Pulse Resp BP Pulse Ox 12/20/17 05:37 98.3 F 82 18 128/68 96 12/19/17 20:25 97.7 F 104 H 18 144/87 96 Medical Decision Making - Lab Interpretations I have reviewed the lab results: Yes - RAD Interpretation Flooring Sales Manager: ED Physician - EKG Interpretation Interpreted by ED Physician: Yes Type: 12 lead EKG <Omar Eubanks - Last Filed: 12/19/17 22:46> <Ramesh Fraga - Last Filed: 12/22/17 11:39> ED Course and Treatment: Impression: Pt seen and evaluated with medical collections. Pt, whose past medical history includes chronic alcohol abuse, presented requesting alcohol detox. Pt reports last alcoholic drink was at 15:00 today. Also complaining of shortness of breath. Aware and agree with HPI, clinical findings, plan, and management. Plan: -- EKG -- Chest X-ray -- Labs, cardiac enzymes, lipase -- Urinalysis -- IV fluids -- Reassess and disposition (Omar Eubanks) Plan -CBC, CMP, EKG, Xray, mag, phosp, banana bag, cardiac iso -reasses 12/19/17 20:55 (Ramesh Fraga) - Lab Interpretations Lab Results: 12/19/17 22:03 12/19/17 22:03 Lab Results 12/20/17 01:26: Urine Color Yellow, Urine Appearance Clear, Urine pH 6.0, Ur Specific [place] 1.025, Urine Protein Negative, Urine Glucose (UA) Negative, Urine Ketones Negative, Urine Blood Trace-lysed H, Urine Nitrate Negative, Urine Bilirubin Negative, Urine Urobilinogen 0.2, Ur Leukocyte Esterase Negative , Urine RBC 0 - 2, Urine WBC 0 - 2, Ur Epithelial Cells 0 - 2 12/19/17 22:03: Alcohol, Quantitative 182 H 12/19/17 22:03: Sodium 144, Potassium 3.7, Chloride 107, Carbon Dioxide 22, Anion Gap 19, BUN 9, Creatinine 0.7 L, Est GFR ( Amer) > 60, Est GFR (Non -Af Amer) > 60, Random Glucose 85, Calcium 8.9, Phosphorus 3.7, Magnesium 2.2, Total Bilirubin 0.6, AST 92 H, ALT 50, Alkaline Phosphatase 81, Lactate Dehydrogenase 900 H, Total Creatine Kinase 998 H, CK-MB (CK-2) 4.1 H, CK-MB (CK- 2) % Cancelled, Troponin I < 0.01, Total Protein 7.6, Albumin 4.3, Globulin 3.3 , Albumin/Globulin Ratio 1.3, Lipase 179 12/19/17 22:03: WBC 7.9, RBC 4.04, Hgb 12.9 L, Hct 36.4 L, MCV 90.1, MCH 31.9, MCHC 35.4, RDW 13.3, Plt Count 211, MPV 10.5, Gran % 63.9, Lymph % (Auto) 27.6, [place] % (Auto) 7.2 H, Eos % (Auto) 0.8 L, Baso % (Auto) 0.5, Gran # 5.05, Lymph # (Auto) 2.2, [place] # (Auto) 0.6, Eos # (Auto) 0.1, Baso # (Auto) 0.04 - RAD Interpretation Radiology Orders: 12/19/17 20:50 CHEST PORTABLE [RAD] Stat - Medication Orders Current Medication Orders: Discontinued Medications Multivitamins/Vitamin C 10 ml/Thiamine HCl 100 mg/ Folic Acid 1 mg/ Sodium Chloride 1,011.2 mls @ 100 mls/hr IV .Q10H7M ONE Stop: 12/20/17 06:57 Last Admin: 12/19/17 22:31 Dose: 100 mls/hr eMAR Start Stop Document 12/19/17 22:31 (Rec: 12/19/17 22:32 [id number]) Intravenous Solution Start Date 12/19/17 Start Time 22:32 Disposition/Present on Arrival <Omar Eubanks - Last Filed: 12/19/17 22:46> - Present on Arrival Any Indicators Present on Arrival: No History of DVT/PE: No History of Uncontrolled Diabetes: No Urinary Catheter: No History of Decub. Ulcer: No History Surgical Site Infection Following: None - Disposition Have Diagnosis and Disposition been Completed?: Yes Disposition Time: 03:00 <Ramesh Fraga - Last Filed: 12/22/17 11:39> - Disposition Diagnosis: Alcohol abuse Disposition: HOME/ ROUTINE Condition: FAIR Discharge Instructions (ExitCare): Alcohol Abuse and Alcoholism (DC) Referrals: PCP,NO [Primary Care Provider] - Follow up with primary Forms: [employer] ([place])
[2017-12-19 22:26] LABS: ALB/GLOB RATIO 1.3 (1.1-1.8); ALBUMIN 4.3 g/dL (3.0-4.8); ALT/SGPT 50 U/L (7-56); AST/SGOT 92 U/L (17-59); BLOOD UREA NITROGEN 9 mg/dL (7-21); CALCIUM 8.9 mg/dL (8.4-10.5); GFR AFRICAN-AMERICAN > 60; GFR NON-AFRICAN AMERICAN > 60; LIPASE 179 U/L (23-300)
[2017-12-19 22:32] LABS: BASO # 0.04 K/mm3 (0.0-2.0); BASO % 0.5 % (0.0-3.0); EOS # 0.1 (0.0-0.7); EOS % 0.8 % (1.5-5.0); GRAN # 5.05 (1.4-6.5); GRAN % 63.9 % (50.0-68.0); HEMOGLOBIN 12.9 g/dL (14.0-18.0); LYMPH # 2.2 (1.2-3.4); LYMPH % 27.6 % (22.0-35.0); MEAN CELL VOLUME 90.1 fl (80.0-105.0); MEAN CORPUSCULAR HEMOGLOBIN 31.9 pg (25.0-35.0); MEAN CORPUSCULAR HGB CONC 35.4 g/dl (31.0-37.0); MEAN PLATELET VOLUME 10.5 fl (7.0-11.0); MONO # 0.6 (0.1-0.6); MONO % 7.2 % (1.0-6.0); RBC 4.04 10^6/uL (3.5-6.1); RED CELL DISTRIBUTION WIDTH 13.3 % (11.5-14.5); WHITE BLOOD COUNT 7.9 10^3/ul (4.5-11.0)
[2017-12-19 22:38] LABS: TROPONIN I < 0.01 ng/mL
[2017-12-19 22:48] LABS: CK-MB 4.1 ng/mL (0.0-3.6)
[2017-12-20 01:49] LABS: URINE BILIRUBIN NEGATIVE (NEGATIVE); URINE BLOOD TRACE-LYSED (NEGATIVE); URINE GLUCOSE (UA) NEGATIVE (NEGATIVE); URINE LEUKOCYTE ESTERASE NEGATIVE Leu/uL (NEGATIVE); URINE PROTEIN NEGATIVE mg/dL (<30 mg/dL); URINE UROBILINOGEN 0.2 E.U./dL (<1 E.U./dL)
[2017-12-20 01:58] LABS: URINE APPEARANCE CLEAR (CLEAR); URINE COLOR YELLOW (YELLOW)
[2017-12-20 02:08] LABS: URINE EPITHELIAL CELLS 0 - 2 /hpf (0-5); URINE RBC 0 - 2 /hpf (0-2); URINE WBC 0 - 2 /hpf (0-6)
[2017-12-20 05:39] VITALS: BP 128/68; PULSE 82; TEMP 98.3
--- NOTE | 2017-12-20 09:17 | CARD ---
APPROVED REPORT EKG Measurement Heart [id number] <Conclusion> Sinus tachycardia Otherwise normal ECG
--- NOTE | 2017-12-20 09:38 | RAD ---
HISTORY: SOB COMPARISON: 12/18/2017. FINDINGS: LUNGS: The lungs are well inflated and clear. PLEURA: No significant pleural effusion identified, no pneumothorax apparent. CARDIOVASCULAR: Normal. OSSEOUS STRUCTURES: No significant abnormalities. VISUALIZED UPPER ABDOMEN: Normal. OTHER FINDINGS: None. IMPRESSION: No active pulmonary disease.
== END 2017-12-20 04:20 | disposition home or self-care (01) ==
LOC: ED 20:21
DX: F10.10 Alcohol abuse, uncomplicated (principal)
CPT/HCPCS: 71045; 80053; 80320; 81001; 82550; 82553; 83615; 83690; 83735; 84100; 84484; 85025; 93005; 99282; J3411; J7030

== ENCOUNTER 2018-01-04 14:31 | Inpatient (IN) | payer MEDICAID, OTHER ==
--- NOTE | 2018-01-04 16:22 | ED PDOC ---
Arrival/HPI - General Chief Complaint: Alcohol Ingestion Time Seen by Provider: 01/04/18 15:39 - History of Present Illness Narrative History of Present Illness (Text): 57 year old Male presents in a drunken state to the emergency department. He was found outside laying down on the sidewalk. It is unclear if he lost consciouness or had any trauma to his head. Patient was vomiting in the bathroom when I first entered the room. Patient seemed to be pleasantly intoxicated when I reentered the room. Patient was AAOx3 on exam, but was not able to answer questions accurately. 01/04/18 16:20 01/04/18 16:30 (Demarco Rouse) Past Medical History - Provider Review Nursing Documentation Reviewed: Yes - Infectious Disease Hx of Infectious Diseases: None - Tetanus Immunization Tetanus Immunization: Unknown - Cardiac Hx Cardiac Disorders: Yes Hx Congestive Heart Failure: Yes (Paroxymal Afib) Hx Hypertension: Yes - Pulmonary Hx Respiratory Disorders: No - Neurological Hx Neurological Disorder: No - HEENT Hx HEENT Disorder: No - Renal Hx Renal Disorder: No - Endocrine/Metabolic Hx Endocrine Disorders: No - Hematological/Oncological Hx Blood Disorders: No - Integumentary Hx Dermatological Disorder: No - Musculoskeletal/Rheumatological Hx Musculoskeletal Disorders: No - Gastrointestinal Hx Gastrointestinal Disorders: No - Genitourinary/Gynecological Hx Genitourinary Disorders: No - Psychiatric Hx Psychophysiologic Disorder: Yes Hx Depression: Yes Hx Substance Use: No Other/Comment: ETOH ABUSE - Past Surgical History Past Surgical History: No Previous - Surgical History Hx Cardiac Catheterization: Yes Hx Coronary Stent: Yes - Anesthesia Hx Anesthesia: Yes Hx Anesthesia Reactions: No Hx Malignant Hyperthermia: No - Suicidal Assessment Feels Threatened In Home Enviroment: No Family/Social History - Physician Review Nursing Documentation Reviewed: Yes Family/Social History: Unknown Family HX Smoking Status: Never Smoked Hx Alcohol Use: Yes Amount per day: 5 Hx Substance Use: No Hx Substance Use Treatment: No Allergies/Home Meds Allergies/Adverse Reactions: Allergies No Known Allergies Allergy (Verified 01/04/18 15:39) Review of Systems - Review of Systems Systems not reviewed;Unavailable: Intoxicated Physical Exam Temperature: Afebrile Blood Pressure: Normal Pulse: Regular Respiratory Rate: Normal Appearance: Positive for: Unkept Pain Distress: None - Systems Exam Head: Present: Atraumatic Pupils: Present: PERRL Conjunctiva: Present: Normal Nose (External): Present: Atraumatic Nose (Internal): Present: Normal Inspection Respiratory/Chest: Present: Rhonchi Cardiovascular: Present: Regular Rate and Rhythm Abdomen: Present: Normal Bowel Sounds Upper Extremity: Present: Normal Inspection. No: NORMAL PULSES (+1/4) Lower Extremity: Present: Normal Inspection. No: NORMAL PULSES (+1/4) Skin: Present: Warm, Dry Vital Signs Temp Pulse Resp BP Pulse Ox 01/04/18 17:36 98.1 F 68 18 97 01/04/18 15:35 98.4 F 67 18 104/65 99 Medical Decision Making ED Course and Treatment: Impression: 57 year old male presents to the emergency room intoxicated. Assessment: Rule out electrolyte abnormalities from vomiting, check blood counts to ensure that patient is not anemic from possible GI bleed, PT/INR to check coaguloability from possible liver disease, CXR for possible bronchitis CBC: Hgb is 12, which is slightly lower than his last Hgb of 12.9. CMP: Na: 117 PT/INR: INR is 1 Chest X ray: No active disease. 01/04/18 17:31 Acute pulmonary disease has been ruled out. Labs are unremarkable. We will monitor patient to evaluate mental status. 01/04/18 18:12 Sodium is 117. Patient will be admitted to the floor. (Demarco Rouse) 01/04/18 22:23 Patient seen and evaluated with ophthalmic medical technician. Patient reports "drinking 12 beers". He is alert, oriented. Denies headache. Denies chest pain or shortness of breath. No hematemesis. No melena. BP stable. Not tremulous. Reports persistent nausea/vomiting. Labs ordered. NA 117. On re-evaluation, he is neurologically intact and patient is ambulatory with improvement in nausea. Due to severe hyponatremia, suspect nausea related to electrolyte disturbance, will admit to ICU for fluid management and serial exams. (Katelynn Mcnamara) - Lab Interpretations Lab Results: 01/04/18 16:51 01/04/18 16:51 Lab Results 01/04/18 16:51: PT 11.4, INR 1.00, APTT 31.1 01/04/18 16:51: Alcohol, Quantitative 360 H* 01/04/18 16:51: Sodium 117 L*, Potassium 4.8, Chloride 82 L D, Carbon Dioxide 21 , Anion Gap 19, BUN 11, Creatinine 0.8, Est GFR ( Amer) > 60, Est GFR ( Non-Af Amer) > 60, Random Glucose 92, Calcium 7.4 L, Total Bilirubin 0.6, AST 78 H, ALT 51, Alkaline Phosphatase 78, Total Protein 7.2, Albumin 4.1, Globulin 3.1, Albumin/Globulin Ratio 1.3, Lipase 284 01/04/18 16:51: WBC 7.6, RBC 3.76, Hgb 12.0 L, Hct 32.7 L, MCV 87.0 D, MCH 31.9 , MCHC 36.7, RDW 13.5, Plt Count 399, MPV 9.0, Gran % 81.4 H, Lymph % (Auto) 14.2 L, [place] % (Auto) 4.3, Eos % (Auto) 0.0 L, Baso % (Auto) 0.1, Gran # 6.19, Lymph # (Auto) 1.1 L, [place] # (Auto) 0.3, Eos # (Auto) 0.0, Baso # (Auto) 0.01 - RAD Interpretation Radiology Orders: 01/04/18 16:36 CHEST PORTABLE [RAD] Stat 01/04/18 17:45 HEAD W/O CONTRAST [CT] Stat - Medication Orders Current Medication Orders: Atorvastatin Calcium (Lipitor) 20 mg PO DIN [facility] Enoxaparin Sodium (Lovenox) 40 mg SC DAILY [facility] PRN Reason: Protocol Folic Acid (Folic Acid) 1 mg PO DAILY [facility] Sodium Chloride (Sodium Chloride 0.9%) 1,000 mls @ 60 mls/hr IV .[id number] [facility] Lorazepam (Ativan) 2 mg IVP Q6 PRN; Protocol PRN Reason: Symptoms of alcohol withdrawl Metoprolol Tartrate (Lopressor) 50 mg PO BID [facility] Multivitamins/Minerals (Therapeutic-M Tab) 1 tab PO DAILY [facility] Thiamine HCl (Vitamin B1 Tab) 100 mg PO DAILY [facility] Discontinued Medications Sodium Chloride (Sodium Chloride 0.9%) 1,000 mls @ 999 mls/hr IV .Q1H1M STA Stop: 01/04/18 17:35 Last Admin: 01/04/18 17:42 Dose: 999 mls/hr eMAR Start Stop Document 01/04/18 17:42 [email or web address] (Rec: 01/04/18 17:42 [email or web address] [id number]) Intravenous Solution Start Date 01/04/18 Start Time 17:42 End Date 01/04/18 Sodium Chloride (Sodium Chloride 0.9%) 1,000 mls @ 100 mls/hr IV .Q10H [facility] Last Admin: 01/04/18 20:23 Dose: 100 mls/hr eMAR Start Stop Document 01/04/18 20:23 AD (Rec: 01/04/18 20:23 AD [id number]) Intravenous Solution Start Date 01/04/18 Start Time 20:23 Ondansetron HCl (Zofran Inj) 4 mg IVP ONCE ONE Stop: 01/04/18 16:43 Last Admin: 01/04/18 17:41 Dose: 4 mg IVP Administration Document 01/04/18 17:41 [email or web address] (Rec: 01/04/18 17:41 [email or web address] [id number]) Charges for Administration # of IVP Administrations 1 Pantoprazole Sodium (Protonix Inj) 40 mg IVP ONCE STA Stop: 01/04/18 16:43 Last Admin: 01/04/18 17:41 Dose: 40 mg IVP Administration Document 01/04/18 17:41 [email or web address] (Rec: 01/04/18 17:41 [email or web address] [id number]) Charges for Administration # of IVP Administrations 1 Disposition/Present on Arrival - Present on Arrival Any Indicators Present on Arrival: No History of DVT/PE: No History of Uncontrolled Diabetes: No Urinary Catheter: No History of Decub. Ulcer: No History Surgical Site Infection Following: None - Disposition Have Diagnosis and Disposition been Completed?: Yes Disposition Time: 18:13 Patient Plan: Admission - Disposition Diagnosis: Alcohol intoxication, Hyponatremia Disposition: HOSPITALIZED Patient Problems: Current Active Problems Problem Status Onset Alcohol intoxication Acute Hyponatremia Acute Condition: SERIOUS
[2018-01-04] MEDS ORDERED: Sodium Chloride 0.9% 1,000 ML IV STA (16:35)
[2018-01-04 17:05] LABS: BASO # 0.01 K/mm3 (0.0-2.0); BASO % 0.1 % (0.0-3.0); GRAN # 6.19 (1.4-6.5); GRAN % 81.4 % (50.0-68.0); LYMPH # 1.1 (1.2-3.4); LYMPH % 14.2 % (22.0-35.0); MEAN CORPUSCULAR HEMOGLOBIN 31.9 pg (25.0-35.0); MEAN CORPUSCULAR HGB CONC 36.7 g/dl (31.0-37.0); MONO # 0.3 (0.1-0.6); MONO % 4.3 % (1.0-6.0); RBC 3.76 10^6/uL (3.5-6.1); RED CELL DISTRIBUTION WIDTH 13.5 % (11.5-14.5); WHITE BLOOD COUNT 7.6 10^3/ul (4.5-11.0)
[2018-01-04 17:13] LABS: PROTHROMBIN TIME 11.4 SECONDS (9.4-12.5)
[2018-01-04 17:14] LABS: PARTIAL THROMBOPLASTIN TIME 31.1 Seconds (25.1-36.5)
--- NOTE | 2018-01-04 17:24 | RAD ---
Date of service: 01/04/2018 HISTORY: possible bronchitis COMPARISON: Chest radiograph dated 12/19/2017. FINDINGS: LUNGS: No active pulmonary disease. PLEURA: No significant pleural effusion identified, no pneumothorax apparent. CARDIOVASCULAR: Cardiomediastinal silhouette stably prominent. OSSEOUS STRUCTURES: Unchanged. VISUALIZED UPPER ABDOMEN: Normal. OTHER FINDINGS: None. IMPRESSION: No active disease.
[2018-01-04 17:43] LABS: ALB/GLOB RATIO 1.3 (1.1-1.8); ALBUMIN 4.1 g/dL (3.0-4.8); ALT/SGPT 51 U/L (7-56); AST/SGOT 78 U/L (17-59); BLOOD UREA NITROGEN 11 mg/dL (7-21); CALCIUM 7.4 mg/dL (8.4-10.5); GFR AFRICAN-AMERICAN > 60; GFR NON-AFRICAN AMERICAN > 60; LIPASE 284 U/L (23-300)
--- NOTE | 2018-01-04 18:56 | CP.PCM.CON ---
History of Present Illness - History of Present Illness History of Present Illness: MICU Consult Note Patient is 57yo male with PMHx of HTN, EtOH abuse, drinks 12-14 beers per day, presents after being found down on the sidewalk on the street. Patient cannot recall what happened. Currently AAOx3, NAd, comfortable providing full history to the best of his ability/memory. Pt denies fever, chills, cough, chest pain, sob, palpitations, ZHANG, dizziness, anxiety. No other constitutional symptoms. Na 117 in the ER, given NS bolus. EtOh 360 PMHx as above PSHx as above Meds cannot recall Social history drinks 12 beers per day,denies illicit drug use Review of Systems - Review of Systems Review of Systems: as per HPI Past Patient History - Infectious Disease Hx of Infectious Diseases: None - Tetanus Immunizations Tetanus Immunization: Unknown - Past Social History Smoking Status: Never Smoked - CARDIAC Hx Cardiac Disorders: Yes Hx Congestive Heart Failure: Yes (Paroxymal Afib) Hx Hypertension: Yes - PULMONARY Hx Respiratory Disorders: No - NEUROLOGICAL Hx Neurological Disorder: No - HEENT Hx HEENT Problems: No - RENAL Hx Chronic Kidney Disease: No - ENDOCRINE/METABOLIC Hx Endocrine Disorders: No - HEMATOLOGICAL/ONCOLOGICAL Hx Blood Disorders: No - INTEGUMENTARY Hx Dermatological Problems: No - MUSCULOSKELETAL/RHEUMATOLOGICAL Hx Musculoskeletal Disorders: No - GASTROINTESTINAL Hx Gastrointestinal Disorders: No - GENITOURINARY/GYNECOLOGICAL Hx Genitourinary Disorders: No - PSYCHIATRIC Hx Psychophysiologic Disorder: Yes Hx Depression: Yes Hx Substance Use: No Other/Comment: ETOH ABUSE - SURGICAL HISTORY Hx Cardiac Catheterization: Yes Hx Coronary Stent: Yes - ANESTHESIA Hx Anesthesia: Yes Hx Anesthesia Reactions: No Hx Malignant Hyperthermia: No Meds Allergies/Adverse Reactions: Allergies Allergy/AdvReac Type Severity Reaction Status Date / Time No Known Allergies Allergy Verified 01/04/18 15:39 - Medications Medications: Current Medications Atorvastatin Calcium (Lipitor) 20 mg PO DIN [facility] Folic Acid (Folic Acid) 1 mg PO DAILY [facility] Lorazepam (Ativan) 2 mg IVP Q6 PRN; Protocol PRN Reason: Symptoms of alcohol withdrawl Metoprolol Tartrate (Lopressor) 50 mg PO BID [facility] Thiamine HCl (Vitamin B1 Tab) 100 mg PO DAILY [facility] Physical Exam - Constitutional Appears: Non-toxic, No Acute Distress - Head Exam Head Exam: NORMAL INSPECTION - Eye Exam Eye Exam: Normal appearance - ENT Exam ENT Exam: Mucous Membranes Dry - Neck Exam Neck exam: Positive for: Full Rom - Respiratory Exam Respiratory Exam: Clear to Auscultation Bilateral, NORMAL BREATHING PATTERN - Cardiovascular Exam Cardiovascular Exam: REGULAR RHYTHM, +S1, +S2 - GI/Abdominal Exam GI & Abdominal Exam: Normal Bowel Sounds, Soft - Extremities Exam Extremities exam: Positive for: normal inspection - Neurological Exam Neurological exam: Alert, Oriented x3 Results - Vital Signs Recent Vital Signs: Last Vital Signs Temp 98.1 F 01/04/18 17:36 Pulse 68 01/04/18 17:36 Resp 18 01/04/18 17:36 BP 104/65 01/04/18 15:35 Pulse Ox 97 01/04/18 17:36 - Labs Result Diagrams: 01/04/18 16:51 01/04/18 16:51 Labs: Laboratory Results - last 24 hr 01/04/18 01/04/18 01/04/18 16:51 16:51 16:51 WBC 7.6 RBC 3.76 Hgb 12.0 L Hct 32.7 L MCV 87.0 D MCH 31.9 MCHC 36.7 RDW 13.5 Plt Count 399 MPV 9.0 Gran % 81.4 H Lymph % (Auto) 14.2 L Morton % (Auto) 4.3 Eos % (Auto) 0.0 L Baso % (Auto) 0.1 Gran # 6.19 Lymph # (Auto) 1.1 L Morton # (Auto) 0.3 Eos # (Auto) 0.0 Baso # (Auto) 0.01 PT INR APTT Sodium 117 L* Potassium 4.8 Chloride 82 L D Carbon Dioxide 21 Anion Gap 19 BUN 11 Creatinine 0.8 Est GFR ( Amer) > 60 Est GFR (Non-Af Amer) > 60 Random Glucose 92 Calcium 7.4 L Total Bilirubin 0.6 AST 78 H ALT 51 Alkaline Phosphatase 78 Total Protein 7.2 Albumin 4.1 Globulin 3.1 Albumin/Globulin Ratio 1.3 Lipase 284 Alcohol, Quantitative 360 H* 01/04/18 16:51 WBC RBC Hgb Hct MCV MCH MCHC RDW Plt Count MPV Gran % Lymph % (Auto) Morton % (Auto) Eos % (Auto) Baso % (Auto) Gran # Lymph # (Auto) Morton # (Auto) Eos # (Auto) Baso # (Auto) PT 11.4 INR 1.00 APTT 31.1 Sodium Potassium Chloride Carbon Dioxide Anion Gap BUN Creatinine Est GFR ( Amer) Est GFR (Non-Af Amer) Random Glucose Calcium Total Bilirubin AST ALT Alkaline Phosphatase Total Protein Albumin Globulin Albumin/Globulin Ratio Lipase Alcohol, Quantitative Assessment & Plan - Assessment and Plan (Free Text) Assessment: 57yo male a/w EtOh intoxication, hyponatremia Hyponatremia EtOH intoxication Recommend: - supp o2 as needed - duonebs PRN - Panculture - IVF, NS 100cc/hr, goal Na correction 6-8meq/24hr, renal consult - check UA, Ulytes, FeNa - monitor for etoh withdrawal - CIWA protocol - MVT, Thiamine, Folic Acid - GI ppx - DVT ppx - Admit to MICU
[2018-01-04] MEDS ORDERED: Sodium Chloride 0.9% 1,000 ML IV SCH ×2 (19:00→22:02)
--- NOTE | 2018-01-04 20:06 | CP.PCM.HP ---
<Cielo Guadarrama - Last Filed: 01/04/18 20:48> History of Present Illness - History of Present Illness History of Present Illness: Patient is a 57 yo male with PMH HTN, CAD s/p stent placement 6 years ago, palpitations, alcohol abuse, depression presenting with chief complaint of alcohol intoxication. Patient is a poor historian as he is somewhat intoxicated. He normally drinks approximately twelve to fifteen 12 oz. beers a day. However today, he drank six 24 oz beers. He states that he became unemployed recently and this has been the main cause of his increased alcohol abuse. He denies dizziness. Does admit to palpitations, shortness of breath, nausea, vomiting, diarrhea. PMH: HTN, CAD, palpitations, alcohol abuse Surgical: Stent 6 years prior Social: Lives alone. Daily alcohol use. 4-7 cigarettes for approximately 50 years. Denies recreational drug use. Allergies: NKDA FHx: Mother (living, no known medical conditions). Father (, no known medical conditions) Present on Admission - Present on Admission Any Indicators Present on Admission: No History of DVT/PE: No History of Uncontrolled Diabetes: No Urinary Catheter: No Decubitus Ulcer Present: No Review of Systems - Constitutional Constitutional: absent: Chills, Fever, Headache - EENT Eyes: absent: Change in Vision Ears: absent: Decreased Hearing Nose/Mouth/Throat: absent: Sore Throat - Cardiovascular Cardiovascular: Palpitations. absent: Chest Pain - Respiratory Respiratory: absent: Cough, Dyspnea, Hemoptysis - Gastrointestinal Gastrointestinal: Diarrhea, Nausea, Vomiting. absent: Abdominal Pain, Constipation - Genitourinary Genitourinary: absent: Dysuria, Urinary Frequency - Integumentary Integumentary: absent: New Lesions, Rash - Neurological Neurological: Dizziness. absent: Abnormal Hearing, Numbness, Memory Loss Past Patient History - Infectious Disease Hx of Infectious Diseases: None - Tetanus Immunizations Tetanus Immunization: Unknown - Past Social History Smoking Status: Never Smoked - CARDIAC Hx Cardiac Disorders: Yes Hx Congestive Heart Failure: Yes (Paroxymal Afib) Hx Hypertension: Yes - PULMONARY Hx Respiratory Disorders: No - NEUROLOGICAL Hx Neurological Disorder: No - HEENT Hx HEENT Problems: No - RENAL Hx Chronic Kidney Disease: No - ENDOCRINE/METABOLIC Hx Endocrine Disorders: No - HEMATOLOGICAL/ONCOLOGICAL Hx Blood Disorders: No - INTEGUMENTARY Hx Dermatological Problems: No - MUSCULOSKELETAL/RHEUMATOLOGICAL Hx Musculoskeletal Disorders: No - GASTROINTESTINAL Hx Gastrointestinal Disorders: No - GENITOURINARY/GYNECOLOGICAL Hx Genitourinary Disorders: No - PSYCHIATRIC Hx Psychophysiologic Disorder: Yes Hx Depression: Yes Hx Substance Use: No Other/Comment: ETOH ABUSE - SURGICAL HISTORY Hx Cardiac Catheterization: Yes Hx Coronary Stent: Yes - ANESTHESIA Hx Anesthesia: Yes Hx Anesthesia Reactions: No Hx Malignant Hyperthermia: No Meds Allergies/Adverse Reactions: Allergies Allergy/AdvReac Type Severity Reaction Status Date / Time No Known Allergies Allergy Verified 01/04/18 15:39 Physical Exam - Constitutional Appears: Non-toxic, No Acute Distress - Head Exam Head Exam: ATRAUMATIC, NORMOCEPHALIC - Eye Exam Eye Exam: EOMI, Normal appearance Pupil Exam: NORMAL ACCOMODATION - ENT Exam ENT Exam: Mucous Membranes Dry, Normal Exam - Neck Exam Neck exam: Positive for: Full Rom, Normal Inspection. Negative for: Lymphadenopathy, Thyromegaly - Respiratory Exam Respiratory Exam: Clear to Auscultation Bilateral, NORMAL BREATHING PATTERN. absent: Rales, Rhonchi, Wheezes - Cardiovascular Exam Cardiovascular Exam: RRR, +S1, +S2 - GI/Abdominal Exam GI & Abdominal Exam: Normal Bowel Sounds, Soft. absent: Distended, Firm, Guarding, Organomegaly, Rebound, Rigid, Tenderness - Extremities Exam Extremities exam: Positive for: normal inspection. Negative for: pedal edema - Back Exam Back exam: NORMAL INSPECTION. absent: CVA tenderness (L) - Neurological Exam Neurological exam: Alert, CN II-XII Intact, Oriented x3 - Psychiatric Exam Psychiatric exam: Normal Affect, Normal Mood - Skin Skin Exam: Dry, Intact, Normal Color Results - Vital Signs Recent Vital Signs: Last Vital Signs Temp 98.1 F 01/04/18 17:36 Pulse 68 01/04/18 17:36 Resp 18 01/04/18 17:36 BP 104/65 01/04/18 15:35 Pulse Ox 97 01/04/18 17:36 - Labs Result Diagrams: 01/04/18 16:51 01/04/18 19:52 Assessment & Plan - Assessment and Plan (Free Text) Assessment: Patient is a 57 yo male with PMH HTN, CAD s/p stent placement 6 years ago, palpitations, alcohol abuse, depression presenting with chief complaint of alcohol intoxication and was found to have hyponatremia of 117. Plan: Alcohol intoxication - Alcohol level 360 - CT head shows no acute intracranial findings - CIWA protocol - Seizure precautions - Fall precautions - Thiamine, folic acid, multivitamin - Ativan 2 mg q6h prn Hyponatremia - Sodium level 117 - Urine electrolytes - Urine/serum osmolality - PTH - Nephrology consulted - ICU consulted. IVF NS 100 ccs/hr. Will admit to MICU. History of CAD - Lipitor, metoprolol - Lipid panel History of HTN - Continue metoprolol DVT/GI prophylaxis - Lovenox - Protonix Case seen and discussed with Dr. Fátima Guadarrama PGY 1 <Swathi Shine - Last Filed: 01/05/18 08:39> Results - Vital Signs Recent Vital Signs: Last Vital Signs Temp 98.3 F 01/05/18 00:38 Pulse 92 H 01/05/18 06:00 Resp 15 01/05/18 01:20 BP 139/70 01/05/18 01:00 Pulse Ox 93 L 01/05/18 01:20 - Labs Result Diagrams: 01/05/18 05:30 01/05/18 05:30 Labs: Laboratory Results - last 24 hr 01/04/18 01/04/18 01/04/18 19:52 19:52 20:25 WBC RBC Hgb Hct MCV MCH MCHC RDW Plt Count MPV Gran % Lymph % (Auto) Coleman % (Auto) Eos % (Auto) Baso % (Auto) Gran # Lymph # (Auto) Coleman # (Auto) Eos # (Auto) Baso # (Auto) Sodium 121 L Potassium 4.4 Chloride 87 L Carbon Dioxide 20 L Anion Gap 19 BUN 9 Creatinine 0.7 L Est GFR ( Amer) > 60 Est GFR (Non-Af Amer) > 60 Random Glucose 84 Serum Osmolality 326 H Uric Acid 3.8 Calcium 7.4 L Phosphorus Magnesium 1.8 Total Bilirubin AST ALT Alkaline Phosphatase Total Creatine Kinase 475 H CK-MB (CK-2) 5.1 H CK-MB (CK-2) % 1.1 L Total Protein Albumin Globulin Albumin/Globulin Ratio Triglycerides 127 Cholesterol 152 LDL Cholesterol Direct 49 HDL Cholesterol 81 H TSH 3rd Generation 0.89 Urine Color Colorless Urine Appearance Clear Urine pH 6.5 Ur Specific [place] <= 1.005 Urine Protein Negative Urine Glucose (UA) Negative Urine Ketones Negative Urine Blood Negative Urine Nitrate Negative Urine Bilirubin Negative Urine Urobilinogen 0.2 Ur Leukocyte Esterase Negative Urine Osmolality Ur Random Sodium Ur Random Potassium 01/04/18 01/05/18 01/05/18 22:20 01:05 05:30 WBC 6.4 RBC 4.09 Hgb 12.8 L Hct 36.1 L MCV 88.3 MCH 31.3 MCHC 35.5 RDW 13.8 Plt Count 364 MPV 9.7 Gran % 72.1 H Lymph % (Auto) 14.9 L Coleman % (Auto) 12.8 H Eos % (Auto) 0.0 L Baso % (Auto) 0.2 Gran # 4.61 Lymph # (Auto) 1.0 L Coleman # (Auto) 0.8 H Eos # (Auto) 0.0 Baso # (Auto) 0.01 Sodium 127 L Potassium 4.1 Chloride 92 L Carbon Dioxide 22 Anion Gap 17 BUN 8 Creatinine 0.8 Est GFR ( Amer) > 60 Est GFR (Non-Af Amer) > 60 Random Glucose 97 Serum Osmolality Uric Acid Calcium 8.0 L Phosphorus Magnesium Total Bilirubin AST ALT Alkaline Phosphatase Total Creatine Kinase CK-MB (CK-2) CK-MB (CK-2) % Total Protein Albumin Globulin Albumin/Globulin Ratio Triglycerides Cholesterol LDL Cholesterol Direct HDL Cholesterol TSH 3rd Generation Urine Color Urine Appearance Urine pH Ur Specific [place] Urine Protein Urine Glucose (UA) Urine Ketones Urine Blood Urine Nitrate Urine Bilirubin Urine Urobilinogen Ur Leukocyte Esterase Urine Osmolality 164 L Ur Random Sodium 9 Ur Random Potassium 12.3 01/05/18 01/05/18 05:30 07:27 WBC RBC Hgb Hct MCV MCH MCHC RDW Plt Count MPV Gran % Lymph % (Auto) Coleman % (Auto) Eos % (Auto) Baso % (Auto) Gran # Lymph # (Auto) Coleman # (Auto) Eos # (Auto) Baso # (Auto) Sodium 131 L Potassium 4.2 Chloride 94 L Carbon Dioxide 23 Anion Gap 18 BUN 8 Creatinine 0.8 Est GFR ( Amer) > 60 Est GFR (Non-Af Amer) > 60 Random Glucose 81 Serum Osmolality Uric Acid Calcium 8.4 Phosphorus 2.7 Magnesium Total Bilirubin 0.6 AST 77 H ALT 46 Alkaline Phosphatase 88 Total Creatine Kinase CK-MB (CK-2) CK-MB (CK-2) % Total Protein 7.5 Albumin 4.3 Globulin 3.2 Albumin/Globulin Ratio 1.3 Triglycerides Cholesterol LDL Cholesterol Direct HDL Cholesterol TSH 3rd Generation Urine Color Urine Appearance Urine pH Ur Specific [place] Urine Protein Urine Glucose (UA) Urine Ketones Urine Blood Urine Nitrate Urine Bilirubin Urine Urobilinogen Ur Leukocyte Esterase Urine Osmolality Ur Random Sodium Ur Random Potassium Attending/Attestation - Attestation I have personally seen and examined this patient.: Yes I have fully participated in the care of the patient.: Yes I have reviewed all pertinent clinical information: Yes Notes (Text): 01/05/18 08:30 Medical record note made by the resident after discussion with my direction and input after the patient was personally seen and examined by me. I have reviewed the chart and agree that the record accurately reflects by personal performance of the history, physical exam, data review, and medical decision-making, in the course for the patient. I have also personally directed the plan of care. 57 year old male with PMH of CAD, SP cardiac stent, alcohol abuse, depression, HTN, dyslipidemia and Paroxysmal AF not on anticoagulation due to noncompliance and fall risk, is admitted with alcohol intoxication and hyponatremia NA 117. We will watch patient for alcohol withdrawal and will monitor patient with CIWA Hyponatremia, patient looks clinically dehydrated, will get UA,urine electrolyte ,urine creatinin, urine osmolality, will repeat BMP, will hold of hypertonic saline as patient does not has any change of mental status or neurological symptoms.Patient is getting NS , will monitor sodium level closely.Case was discussed with Nephrology and ICU attending.. Heart rate is controlled. Management plan was discussed in detail with patient. Education was provided.
[2018-01-04 20:32] LABS: BLOOD UREA NITROGEN 9 mg/dL (7-21); CALCIUM 7.4 mg/dL (8.4-10.5); GFR AFRICAN-AMERICAN > 60; GFR NON-AFRICAN AMERICAN > 60; HDL CHOLESTEROL 81 mg/dL (29-60); URIC ACID 3.8 mg/dL (3.5-8.5)
[2018-01-04 20:42] LABS: LDL CHOLESTEROL 49 mg/dL (0-129)
[2018-01-04 20:52] LABS: CK MB% 1.1 % (2.5-3.0); CK-MB 5.1 ng/mL (0.0-3.6)
[2018-01-04 21:16] LABS: PH,URINE 6.5 (4.7-8.0); URINE BILIRUBIN NEGATIVE (NEGATIVE); URINE BLOOD NEGATIVE (NEGATIVE); URINE GLUCOSE (UA) NEGATIVE (NEGATIVE); URINE LEUKOCYTE ESTERASE NEGATIVE Leu/uL (NEGATIVE); URINE PROTEIN NEGATIVE mg/dL (<30 mg/dL); URINE UROBILINOGEN 0.2 E.U./dL (<1 E.U./dL)
[2018-01-04 21:17] LABS: URINE APPEARANCE CLEAR (CLEAR); URINE COLOR COLORLESS (YELLOW)
--- NOTE | 2018-01-04 23:41 | CP.PCM.CON ---
History of Present Illness - History of Present Illness History of Present Illness: 57 yo M w/ pmh of htn, CAD s/p remote PCI, ETOH abuse, presented to ED today with 3-4 days of vomiting; nephrology being consulted for severe hyponatremia; Patient admits continuing to drink large amounts of beer; has not been eating over past few days due to inability to hold down PO food intake; patient otherwise denies any diarrhea; reporting pain related to his vomiting/wretching , currently only with clear liquid emesis; Patient reports frequent urination lately, 6-7 times per day; denies any dysuria ; weight has been stable; does report night sweats; Patient was supposed to f/u with PMD recently but did not do so; he otherwise doesn't know the names of the meds he's on; In ED, patient was given 1L NS bolus and placed on standing NS at 100 cc/hr; Review of Systems - Constitutional Constitutional: As Per HPI - EENT Nose/Mouth/Throat: absent: Dysphagia Additional comments: somewhat blurry vision; - Cardiovascular Additional comments: intermittent palpitations; - Respiratory Respiratory: Dyspnea - Genitourinary Genitourinary: As Per HPI - Musculoskeletal Musculoskeletal: Back Pain. absent: Arthralgias - Neurological Neurological: Frequent Falls, Tremor - Psychiatric Psychiatric: Depression - Endocrine Endocrine: Polyuria Past Patient History - Infectious Disease Hx of Infectious Diseases: None - Tetanus Immunizations Tetanus Immunization: Unknown - Past Medical History & Family History Pertinent Family History: no family hx per patient; - Past Social History Smoking Status: Never Smoked - CARDIAC Hx Cardiac Disorders: Yes Hx Congestive Heart Failure: Yes (Paroxymal Afib) Hx Hypertension: Yes - PULMONARY Hx Respiratory Disorders: No - NEUROLOGICAL Hx Neurological Disorder: No - HEENT Hx HEENT Problems: No - RENAL Hx Chronic Kidney Disease: No - ENDOCRINE/METABOLIC Hx Endocrine Disorders: No - HEMATOLOGICAL/ONCOLOGICAL Hx Blood Disorders: No - INTEGUMENTARY Hx Dermatological Problems: No - MUSCULOSKELETAL/RHEUMATOLOGICAL Hx Musculoskeletal Disorders: No - GASTROINTESTINAL Hx Gastrointestinal Disorders: No - GENITOURINARY/GYNECOLOGICAL Hx Genitourinary Disorders: No - PSYCHIATRIC Hx Psychophysiologic Disorder: Yes Hx Depression: Yes Hx Substance Use: No Other/Comment: ETOH ABUSE - SURGICAL HISTORY Hx Cardiac Catheterization: Yes Hx Coronary Stent: Yes - ANESTHESIA Hx Anesthesia: Yes Hx Anesthesia Reactions: No Hx Malignant Hyperthermia: No Meds Allergies/Adverse Reactions: Allergies Allergy/AdvReac Type Severity Reaction Status Date / Time No Known Allergies Allergy Verified 01/04/18 15:39 - Medications Medications: Current Medications Atorvastatin Calcium (Lipitor) 20 mg PO DIN [facility] Enoxaparin Sodium (Lovenox) 40 mg SC DAILY [facility] PRN Reason: Protocol Folic Acid (Folic Acid) 1 mg PO DAILY [facility] Sodium Chloride (Sodium Chloride 0.9%) 1,000 mls @ 60 mls/hr IV .[id number] [facility] Last Admin: 01/04/18 22:59 Dose: 60 mls/hr Lorazepam (Ativan) 2 mg IVP Q6 PRN; Protocol PRN Reason: Symptoms of alcohol withdrawl Metoprolol Tartrate (Lopressor) 50 mg PO BID [facility] Multivitamins/Minerals (Therapeutic-M Tab) 1 tab PO DAILY [facility] Thiamine HCl (Vitamin B1 Tab) 100 mg PO DAILY [facility] Physical Exam - Constitutional Appears: Non-toxic, In Acute Distress - Eye Exam Eye Exam: absent: Scleral icterus - ENT Exam ENT Exam: Mucous Membranes Moist - Neck Exam Neck exam: Negative for: Lymphadenopathy - Respiratory Exam Respiratory Exam: Clear to Auscultation Bilateral. absent: Rales, Rhonchi, Wheezes, Respiratory Distress - Cardiovascular Exam Cardiovascular Exam: RRR, +S1, +S2. absent: Gallop, JVD - GI/Abdominal Exam GI & Abdominal Exam: absent: Distended, Soft - Extremities Exam Additional comments: no leg edema; - Neurological Exam Neurological exam: Alert Additional comments: tremor present; - Psychiatric Exam Psychiatric exam: Normal Affect, Normal Mood - Skin Skin Exam: Normal Color, Warm Results - Vital Signs Recent Vital Signs: Last Vital Signs Temp 98.1 F 01/04/18 17:36 Pulse 68 01/04/18 17:36 Resp 18 01/04/18 17:36 BP 104/65 01/04/18 15:35 Pulse Ox 97 01/04/18 17:36 - Labs Result Diagrams: 01/04/18 16:51 01/05/18 01:05 Labs: Laboratory Results - last 24 hr 01/04/18 01/04/18 01/04/18 19:52 19:52 20:25 Sodium 121 L Potassium 4.4 Chloride 87 L Carbon Dioxide 20 L Anion Gap 19 BUN 9 Creatinine 0.7 L Est GFR ( Amer) > 60 Est GFR (Non-Af Amer) > 60 Random Glucose 84 Serum Osmolality 326 H Uric Acid 3.8 Calcium 7.4 L Magnesium 1.8 Total Creatine Kinase 475 H CK-MB (CK-2) 5.1 H CK-MB (CK-2) % 1.1 L Triglycerides 127 Cholesterol 152 LDL Cholesterol Direct 49 HDL Cholesterol 81 H TSH 3rd Generation 0.89 Urine Color Colorless Urine Appearance Clear Urine pH 6.5 Ur Specific [place] <= 1.005 Urine Protein Negative Urine Glucose (UA) Negative Urine Ketones Negative Urine Blood Negative Urine Nitrate Negative Urine Bilirubin Negative Urine Urobilinogen 0.2 Ur Leukocyte Esterase Negative Urine Osmolality Ur Random Sodium Ur Random Potassium 01/04/18 22:20 Sodium Potassium Chloride Carbon Dioxide Anion Gap BUN Creatinine Est GFR ( Amer) Est GFR (Non-Af Amer) Random Glucose Serum Osmolality Uric Acid Calcium Magnesium Total Creatine Kinase CK-MB (CK-2) CK-MB (CK-2) % Triglycerides Cholesterol LDL Cholesterol Direct HDL Cholesterol TSH 3rd Generation Urine Color Urine Appearance Urine pH Ur Specific [place] Urine Protein Urine Glucose (UA) Urine Ketones Urine Blood Urine Nitrate Urine Bilirubin Urine Urobilinogen Ur Leukocyte Esterase Urine Osmolality 164 L Ur Random Sodium 9 Ur Random Potassium 12.3 - Imaging and Cardiology Chest x-ray Status: Image reviewed by me Additional comment: lungs clear Assessment & Plan (1) Hyponatremia Assessment and Plan: Etiology not entirely clear; mild improvement after 1L NS bolus with serum sodium increasing from 117 -> 121; urine lytes showing relatively low Ur osm and Na although this was sent well after patient had been started on IVF; otherwise, Ur osm may have been significantly higher on presentation due to volume depletion in the setting of decreased PO intake and vomiting; low Ur Na also consistent with volume depletion; inadequate solute intake ("beer potomania ") also a possibility; -Decreasing NS to 60 cc/hr; -Repeat bmp q4hrs -hold anti htn meds -goal rate of increase in serum Na 6-8 meq over 24 hrs; Status: Acute (2) Rhabdomyolysis Assessment and Plan: Relatively mild, possibly due to trauma; continue IVF; Status: Acute (3) Hypocalcemia Assessment and Plan: Etiology unclear; doubtful that this is related to such mild rhabdo; -checking phos, mag, PTH, 25-OH vit D levels; Status: Acute (4) Hypertension Assessment and Plan: Low/normal BP currently; previously on 4 anti htn agents; unclear when was the last time he used any of them; hold for now; Status: Chronic Priority: High - Assessment and Plan (Free Text) Assessment: Critical care time assessing patient multiple times, and discussion with primary team/on-call team > 35 minutes;
[2018-01-05] MEDS ORDERED: DEXTROSE IV SCH (00:30)
[2018-01-05] MEDS ORDERED: FOLIC ACID IV SCH (00:30)
[2018-01-05] MEDS ORDERED: [UNRECOGNIZED DRUG - OTHER] IV SCH (00:30)
[2018-01-05] MEDS ORDERED: MULTIVITAMIN IV SCH (00:30)
[2018-01-05] MEDS ORDERED: THIAMINE IV SCH (00:30)
[2018-01-05 01:07] VITALS: BMI 29.2
[2018-01-05 01:25] LABS: BLOOD UREA NITROGEN 8 mg/dL (7-21); GFR AFRICAN-AMERICAN > 60; GFR NON-AFRICAN AMERICAN > 60
[2018-01-05 06:24] LABS: BASO # 0.01 K/mm3 (0.0-2.0); BASO % 0.2 % (0.0-3.0); GRAN # 4.61 (1.4-6.5); GRAN % 72.1 % (50.0-68.0); HEMOGLOBIN 12.8 g/dL (14.0-18.0); LYMPH % 14.9 % (22.0-35.0); MEAN CELL VOLUME 88.3 fl (80.0-105.0); MEAN CORPUSCULAR HEMOGLOBIN 31.3 pg (25.0-35.0); MEAN CORPUSCULAR HGB CONC 35.5 g/dl (31.0-37.0); MEAN PLATELET VOLUME 9.7 fl (7.0-11.0); MONO # 0.8 (0.1-0.6); MONO % 12.8 % (1.0-6.0); RBC 4.09 10^6/uL (3.5-6.1); RED CELL DISTRIBUTION WIDTH 13.8 % (11.5-14.5); WHITE BLOOD COUNT 6.4 10^3/ul (4.5-11.0)
[2018-01-05 06:26] LABS: ALB/GLOB RATIO 1.3 (1.1-1.8); ALBUMIN 4.3 g/dL (3.0-4.8); ALT/SGPT 46 U/L (7-56); AST/SGOT 77 U/L (17-59); BLOOD UREA NITROGEN 8 mg/dL (7-21); CALCIUM 8.4 mg/dL (8.4-10.5); GFR AFRICAN-AMERICAN > 60; GFR NON-AFRICAN AMERICAN > 60
[2018-01-05] MEDS ORDERED: Pantoprazole 40 mg EC Tab PO STA (06:55)
--- NOTE | 2018-01-05 07:18 | CT ---
Date of service: 01/04/2018 PROCEDURE: CT HEAD WITHOUT CONTRAST. HISTORY: nausea/vomiting, hyponatremia COMPARISON: None available. TECHNIQUE: Axial computed tomography images were obtained through the head/brain without intravenous contrast. Radiation dose: Total exam DLP = mGy-cm. This CT exam was performed using one or more of the following dose reduction techniques: Automated exposure control, adjustment of the mA and/or kV according to patient size, and/or use of iterative reconstruction technique. FINDINGS: HEMORRHAGE: No intracranial hemorrhage. BRAIN: No mass effect or edema. No atrophy or chronic microvascular ischemic changes. VENTRICLES: Unremarkable. No hydrocephalus. CALVARIUM: Unremarkable. PARANASAL SINUSES: Unremarkable as visualized. No significant inflammatory changes. MASTOID AIR CELLS: Unremarkable as visualized. No inflammatory changes. OTHER FINDINGS: None. IMPRESSION: Normal CT of the Head.
[2018-01-05] MEDS ORDERED: Magnesium Oxide 400 mg Tab UD PO STA (07:29)
--- NOTE | 2018-01-05 08:23 | CP.PCM.PN ---
<Rachele Urban - Last Filed: 01/05/18 13:17> Subjective - Date & Time of Evaluation Date of Evaluation: 01/05/18 Time of Evaluation: 08:19 - Subjective Subjective: RACHELE URBAN DO - PGY1 IM CLIENT SUPPORT COORDINATOR - MEDICINE PROGRESS NOTE Pt. was seen this AM at bedside in ICU reported c/o palpitations, SOB, cough, Epigastric abdominal pain, N/V. He stated this AM that he came to the ED because he wanted to stop drinking. Stated his last drink was yesterday prior to presenting to ED. Pt. voicing no other complaints at this time; This AM pt. required PRN ativan. Objective - Vital Signs/Intake and Output Vital Signs (last 24 hours): Temp Pulse Resp BP Pulse Ox 98.3 F 92 H 15 139/70 93 L 01/05/18 00:38 01/05/18 06:00 01/05/18 01:20 01/05/18 01:00 01/05/18 01:20 Intake and Output: 01/05/18 01/05/18 06:59 18:59 Intake Total 820 Output Total 2700 Balance -1880 - Medications Medications: Current Medications Atorvastatin Calcium (Lipitor) 20 mg PO DIN [facility] Chlordiazepoxide (Librium) 50 mg PO Q8 [facility] PRN Reason: Protocol Chlordiazepoxide (Librium) 25 mg PO Q6 PRN; Protocol PRN Reason: Symptoms of alcohol withdrawl Enoxaparin Sodium (Lovenox) 40 mg SC DAILY [facility] PRN Reason: Protocol Folic Acid (Folic Acid) 1 mg PO DAILY [facility] Dextrose (Dextrose 5% In Water 1000 Ml) 1,000 mls @ 500 mls/hr IV .Q2H [facility] Stop: 01/05/18 08:29 Last Admin: 01/05/18 06:26 Dose: 500 mls/hr Lorazepam (Ativan) 2 mg IVP Q4 PRN; Protocol PRN Reason: Agitation Metoprolol Tartrate (Lopressor) 50 mg PO BID [facility] Multivitamins/Minerals (Therapeutic-M Tab) 1 tab PO DAILY [facility] Ondansetron HCl (Zofran Inj) 4 mg IVP Q4H PRN PRN Reason: Nausea/Vomiting Pantoprazole Sodium (Protonix Ec Tab) 40 mg PO 0600 [facility] Thiamine HCl (Vitamin B1 Tab) 100 mg PO DAILY [facility] - Labs Labs: 01/05/18 05:30 01/05/18 05:30 PT 11.4 SECONDS (9.4-12.5) 01/04/18 16:51 INR 1.00 (0.93-1.08) 01/04/18 16:51 APTT 31.1 Seconds (25.1-36.5) 01/04/18 16:51 - Constitutional Appears: Non-toxic, No Acute Distress, Agitated - Head Exam Head Exam: ATRAUMATIC, NORMAL INSPECTION - Eye Exam Eye Exam: EOMI, PERRL. absent: Scleral icterus - ENT Exam ENT Exam: Mucous Membranes Moist - Respiratory Exam Respiratory Exam: Clear to Ausculation Bilateral, NORMAL BREATHING PATTERN. absent: Rhonchi, Wheezes - Cardiovascular Exam Cardiovascular Exam: REGULAR RHYTHM, RRR, +S1, +S2 - GI/Abdominal Exam GI & Abdominal Exam: Soft, Normal Bowel Sounds. absent: Tenderness Additional comments: tympanic - Extremities Exam Extremities Exam: absent: Pedal Edema Additional comments: 2+ DP/ PT BL - Neurological Exam Neurological Exam: Alert, Awake Additional comments: Neurologically intact, Gross strength 4+ in UE and LE BL, Resting tremor on exam ; did not dissipate w/ activity/movement. No flapping asterixis appreciated. - Psychiatric Exam Psychiatric exam: Normal Affect, Normal Mood Assessment and Plan - Assessment and Plan (Free Text) Assessment: 57M w/ a PMH of EtOH abuse, HTN, HLD, CAD s/p stents, EtoH abuse found unconscious on sidewalk brought to ED and admitted to ICU for EtOH withdrawal, and Hyponatremia. Plan: Hyponatremia Most likely 2/2 potomania vs thiazide diuretic less likely Na+ 117 on arrival; Urine OSM 164L Pt's Na+ increased from 117 to 137 given desmopression and D5W DC IVF for now Continue BMP Q4 Most recent BMP 127 @ 15.5 hr after admission EtOH withdrawal Has been admitted for previous withdrawal; denies seizure previously Most recent CIWA score 2 Ativan schd and prn Librium schd HTN Hold home HCTZ 25 QD, Restart home Amlodipine 10 QD, HLD Continue home Lipitor 20QD Paroxysmal Afib Metoprolol 50 BID CAD s/p Stents ASA 81 QD Lipitor 20 GI/ DVT prophylaxis: Protonix / Lovenox Case discussed w/ attending Dr. Fátima Urban DO - PGY1 IM CLIENT SUPPORT COORDINATOR - PAGER [phone] <FátimaSwathi - Last Filed: 01/07/18 12:31> Objective - Vital Signs/Intake and Output Vital Signs (last 24 hours): Temp Pulse Resp BP Pulse Ox 98 F 87 26 H 149/84 100 01/07/18 09:04 01/07/18 09:07 01/06/18 12:01 01/07/18 09:08 01/07/18 08:59 Intake and Output: 01/07/18 01/07/18 06:59 18:59 Intake Total 3200 Output Total 5625 Balance -2425 - Labs Labs: 01/07/18 06:00 01/07/18 06:00 PT 11.4 SECONDS (9.4-12.5) 01/04/18 16:51 INR 1.00 (0.93-1.08) 01/04/18 16:51 APTT 31.1 Seconds (25.1-36.5) 01/04/18 16:51 Attending/Attestation - Attestation I have personally seen and examined this patient.: Yes I have fully participated in the care of the patient.: Yes I have reviewed all pertinent clinical information, including history, physical exam and plan: Yes Notes (Text): 01/07/18 12:28 Medical record note made by the resident after discussion with my direction and input after the patient was personally seen and examined by me. I have reviewed the chart and agree that the record accurately reflects by personal performance of the history, physical exam, data review, and medical decision-making, in the course for the patient. I have also personally directed the plan of care. 57 year old male with PMH of CAD, SP cardiac stent, alcohol abuse, depression, HTN, dyslipidemia and Paroxysmal AF not on anticoagulation due to noncompliance and fall risk, is admitted with alcohol intoxication and hyponatremia NA 117. Hyponatremia was corrected quickly likely beer potomania.Patient is asymptometic , Nephrology is following.We will monitor closely. Continue monitoring with CIWA. Heart rate is controlled.Patient is not on anticoagulation due to ongoing alcohol abuse. Management plan was discussed in detail with patient. Education was provided.
[2018-01-05 08:48] LABS: BLOOD UREA NITROGEN 8 mg/dL (7-21); CALCIUM 8.3 mg/dL (8.4-10.5); GFR AFRICAN-AMERICAN > 60; GFR NON-AFRICAN AMERICAN > 60
--- NOTE | 2018-01-05 10:05 | CP.CCUPN ---
<Hari Tovar - Last Filed: 01/05/18 11:37> CCU Subjective - Physician Review Subjective (Free Text): Hari Tovar PGY-1 ICU Progress Note for Dr. Jones Pt was seen and evaluated at bedside. Pt is complaining of nausea, associated with epigastric pain. Pt also reports an anxious feeling. No acute events overnight. Pt denies hallucinations, fever, headache, dizziness, lightheadedness , chest pain, sob, vomiting, diarrhea. A 12 point ROS was reviewed and is unremarkable except symptoms stated above. CCU Objective - Vital Signs / Intake & Output Vital Signs (Last 4 hours): Vital Signs Pulse 01/05/18 06:00 92 H Intake and Output (Last 8hrs): Intake & Output 01/04/18 01/05/18 01/05/18 22:59 06:59 14:59 Intake Total 820 Output Total 2700 Balance -1880 Weight 79.56 kg Intake: IV 420 .9 420 Oral 400 Output: Urine 2700 Urine, Voided 2700 - Physical Exam Narrative Physical Exam (Free Text): Pt is restting comfortably, in no acute distress. Head: Positive for: Atraumatic, Normocephalic Pupils: Positive for: PERRL Extroacular Muscles: Positive for: EOMI Conjunctiva: Positive for: Normal. Negative for: Icteric Mouth: Positive for: Moist Mucous Membranes Respiratory/Chest: Positive for: Rhonchi (in RLL) Cardiovascular: Positive for: Regular Rate and Rhythm, Normal S1, S2. Negative for: Murmurs, Rub, Gallop Abdomen: Positive for: Normal Bowel Sounds, Mass/Organomegaly (spenomegaly), Other (negative caput medusae). Negative for: Tenderness, Distention Upper Extremity: Positive for: Normal Inspection, Other (tremor with outstretched hands) Lower Extremity: Positive for: Normal Inspection. Negative for: Edema, NORMAL PULSES (+1/4) Skin: Positive for: Warm, Diaphoretic Psychiatric: Positive for: Alert, Oriented x 3, Normal Insight, Normal Concentration. Negative for: Hallucinations - Medications Active Medications: Active Medications Generic Name Dose Route Start Last Admin Trade Name Freq PRN Reason Stop Dose Admin Atorvastatin Calcium 20 mg 01/05/18 17:00 Lipitor PO DIN [facility] Chlordiazepoxide 50 mg 01/05/18 08:11 Librium PO Q8 [facility] Protocol Chlordiazepoxide 25 mg 01/05/18 08:12 Librium PO Q6 PRN Symptoms of alcohol withdrawl Protocol Enoxaparin Sodium 40 mg 01/05/18 10:00 Lovenox SC DAILY [facility] Protocol Folic Acid 1 mg 01/05/18 10:00 Folic Acid PO DAILY [facility] Lorazepam 2 mg 01/05/18 08:11 01/05/18 08:43 Ativan IVP 2 mg Q4 PRN Administration Agitation Protocol Metoprolol Tartrate 50 mg 01/05/18 10:00 Lopressor PO BID [facility] Multivitamins/Minerals 1 tab 01/05/18 10:00 Therapeutic-M Tab PO DAILY [facility] Ondansetron HCl 4 mg 01/05/18 07:02 Zofran Inj IVP Q4H PRN Nausea/Vomiting Pantoprazole Sodium 40 mg 01/06/18 06:00 Protonix Ec Tab PO 0600 [facility] Thiamine HCl 100 mg 01/05/18 10:00 Vitamin B1 Tab PO DAILY [facility] - Patient Studies Lab Studies: Lab Studies 01/05/18 01/05/18 01/05/18 Range/Units 08:34 08:30 07:27 WBC (4.5-11.0) 10^3/ul RBC (3.5-6.1) 10^6/uL Hgb (14.0-18.0) g/dL Hct (42.0-52.0) % MCV (80.0-105.0) fl MCH (25.0-35.0) pg MCHC (31.0-37.0) g/dl RDW (11.5-14.5) % Plt Count (120.0-450.0) 10^3/uL MPV (7.0-11.0) fl Gran % (50.0-68.0) % Lymph % (Auto) (22.0-35.0) % [place] % (Auto) (1.0-6.0) % Eos % (Auto) (1.5-5.0) % Baso % (Auto) (0.0-3.0) % Gran # (1.4-6.5) Lymph # (Auto) (1.2-3.4) [place] # (Auto) (0.1-0.6) Eos # (Auto) (0.0-0.7) Baso # (Auto) (0.0-2.0) K/mm3 Sodium 127 L (132-148) mmol/L Potassium 3.9 (3.6-5.0) mmol/L Chloride 92 L (98-107) mmol/L Carbon Dioxide 23 (21-33) mmol/L Anion Gap 16 (10-20) BUN 8 (7-21) mg/dL Creatinine 0.7 L (0.8-1.5) mg/dl Est GFR ( Amer) > 60 Est GFR (Non-Af Amer) > 60 Random Glucose 170 H (70-110) mg/dL Serum Osmolality (272-300) mosm/kg Uric Acid (3.5-8.5) mg/dL Calcium 8.3 L (8.4-10.5) mg/dL Phosphorus 2.7 (2.5-4.5) mg/dL Magnesium 1.9 (1.7-2.2) mg/dL Total Bilirubin (0.2-1.3) mg/dL AST (17-59) U/L ALT (7-56) U/L Alkaline Phosphatase (38-126) U/L Total Creatine Kinase (35-230) U/L CK-MB (CK-2) (0.0-3.6) ng/mL CK-MB (CK-2) % (2.5-3.0) % Total Protein (5.8-8.3) g/dL Albumin (3.0-4.8) g/dL Globulin gm/dL Albumin/Globulin Ratio (1.1-1.8) Triglycerides (35-160) mg/dL Cholesterol (130-200) mg/dL LDL Cholesterol Direct (0-129) mg/dL HDL Cholesterol (29-60) mg/dL TSH 3rd Generation (0.46-4.68) mIU/mL Urine Color (YELLOW) Urine Appearance (CLEAR) Urine pH (4.7-8.0) Ur Specific [place] (1.005-1.035) Urine Protein (<30 mg/dL) mg/dL Urine Glucose (UA) (NEGATIVE) mg/dL Urine Ketones (NEGATIVE) mg/dL Urine Blood (NEGATIVE) Urine Nitrate (NEGATIVE) Urine Bilirubin (NEGATIVE) Urine Urobilinogen (<1 E.U./dL) E.U./dL Ur Leukocyte Esterase (NEGATIVE) Shahzad/uL Urine Osmolality (300-1000) mosm/kg Ur Random Sodium meq/L Ur Random Potassium meq/L 01/05/18 01/05/18 01/05/18 Range/Units 05:30 05:30 01:05 WBC 6.4 (4.5-11.0) 10^3/ul RBC 4.09 (3.5-6.1) 10^6/uL Hgb 12.8 L (14.0-18.0) g/dL Hct 36.1 L (42.0-52.0) % MCV 88.3 (80.0-105.0) fl MCH 31.3 (25.0-35.0) pg MCHC 35.5 (31.0-37.0) g/dl RDW 13.8 (11.5-14.5) % Plt Count 364 (120.0-450.0) 10^3/uL MPV 9.7 (7.0-11.0) fl Gran % 72.1 H (50.0-68.0) % Lymph % (Auto) 14.9 L (22.0-35.0) % [place] % (Auto) 12.8 H (1.0-6.0) % Eos % (Auto) 0.0 L (1.5-5.0) % Baso % (Auto) 0.2 (0.0-3.0) % Gran # 4.61 (1.4-6.5) Lymph # (Auto) 1.0 L (1.2-3.4) [place] # (Auto) 0.8 H (0.1-0.6) Eos # (Auto) 0.0 (0.0-0.7) Baso # (Auto) 0.01 (0.0-2.0) K/mm3 Sodium 131 L 127 L (132-148) mmol/L Potassium 4.2 4.1 (3.6-5.0) mmol/L Chloride 94 L 92 L (98-107) mmol/L Carbon Dioxide 23 22 (21-33) mmol/L Anion Gap 18 17 (10-20) BUN 8 8 (7-21) mg/dL Creatinine 0.8 0.8 (0.8-1.5) mg/dl Est GFR ( Amer) > 60 > 60 Est GFR (Non-Af Amer) > 60 > 60 Random Glucose 81 97 (70-110) mg/dL Serum Osmolality (272-300) mosm/kg Uric Acid (3.5-8.5) mg/dL Calcium 8.4 8.0 L (8.4-10.5) mg/dL Phosphorus (2.5-4.5) mg/dL Magnesium (1.7-2.2) mg/dL Total Bilirubin 0.6 (0.2-1.3) mg/dL AST 77 H (17-59) U/L ALT 46 (7-56) U/L Alkaline Phosphatase 88 (38-126) U/L Total Creatine Kinase (35-230) U/L CK-MB (CK-2) (0.0-3.6) ng/mL CK-MB (CK-2) % (2.5-3.0) % Total Protein 7.5 (5.8-8.3) g/dL Albumin 4.3 (3.0-4.8) g/dL Globulin 3.2 gm/dL Albumin/Globulin Ratio 1.3 (1.1-1.8) Triglycerides (35-160) mg/dL Cholesterol (130-200) mg/dL LDL Cholesterol Direct (0-129) mg/dL HDL Cholesterol (29-60) mg/dL TSH 3rd Generation (0.46-4.68) mIU/mL Urine Color (YELLOW) Urine Appearance (CLEAR) Urine pH (4.7-8.0) Ur Specific [place] (1.005-1.035) Urine Protein (<30 mg/dL) mg/dL Urine Glucose (UA) (NEGATIVE) mg/dL Urine Ketones (NEGATIVE) mg/dL Urine Blood (NEGATIVE) Urine Nitrate (NEGATIVE) Urine Bilirubin (NEGATIVE) Urine Urobilinogen (<1 E.U./dL) E.U./dL Ur Leukocyte Esterase (NEGATIVE) Shahzad/uL Urine Osmolality (300-1000) mosm/kg Ur Random Sodium meq/L Ur Random Potassium meq/L 01/04/18 01/04/18 01/04/18 Range/Units 22:20 20:25 19:52 WBC (4.5-11.0) 10^3/ul RBC (3.5-6.1) 10^6/uL Hgb (14.0-18.0) g/dL Hct (42.0-52.0) % MCV (80.0-105.0) fl MCH (25.0-35.0) pg MCHC (31.0-37.0) g/dl RDW (11.5-14.5) % Plt Count (120.0-450.0) 10^3/uL MPV (7.0-11.0) fl Gran % (50.0-68.0) % Lymph % (Auto) (22.0-35.0) % [place] % (Auto) (1.0-6.0) % Eos % (Auto) (1.5-5.0) % Baso % (Auto) (0.0-3.0) % Gran # (1.4-6.5) Lymph # (Auto) (1.2-3.4) [place] # (Auto) (0.1-0.6) Eos # (Auto) (0.0-0.7) Baso # (Auto) (0.0-2.0) K/mm3 Sodium (132-148) mmol/L Potassium (3.6-5.0) mmol/L Chloride (98-107) mmol/L Carbon Dioxide (21-33) mmol/L Anion Gap (10-20) BUN (7-21) mg/dL Creatinine (0.8-1.5) mg/dl Est GFR ( Amer) Est GFR (Non-Af Amer) Random Glucose (70-110) mg/dL Serum Osmolality 326 H (272-300) mosm/kg Uric Acid (3.5-8.5) mg/dL Calcium (8.4-10.5) mg/dL Phosphorus (2.5-4.5) mg/dL Magnesium (1.7-2.2) mg/dL Total Bilirubin (0.2-1.3) mg/dL AST (17-59) U/L ALT (7-56) U/L Alkaline Phosphatase (38-126) U/L Total Creatine Kinase (35-230) U/L CK-MB (CK-2) (0.0-3.6) ng/mL CK-MB (CK-2) % (2.5-3.0) % Total Protein (5.8-8.3) g/dL Albumin (3.0-4.8) g/dL Globulin gm/dL Albumin/Globulin Ratio (1.1-1.8) Triglycerides (35-160) mg/dL Cholesterol (130-200) mg/dL LDL Cholesterol Direct (0-129) mg/dL HDL Cholesterol (29-60) mg/dL TSH 3rd Generation 0.89 (0.46-4.68) mIU/mL Urine Color Colorless (YELLOW) Urine Appearance Clear (CLEAR) Urine pH 6.5 (4.7-8.0) Ur Specific [place] <= 1.005 (1.005-1.035) Urine Protein Negative (<30 mg/dL) mg/dL Urine Glucose (UA) Negative (NEGATIVE) mg/dL Urine Ketones Negative (NEGATIVE) mg/dL Urine Blood Negative (NEGATIVE) Urine Nitrate Negative (NEGATIVE) Urine Bilirubin Negative (NEGATIVE) Urine Urobilinogen 0.2 (<1 E.U./dL) E.U./dL Ur Leukocyte Esterase Negative (NEGATIVE) Shahzad/uL Urine Osmolality 164 L (300-1000) mosm/kg Ur Random Sodium 9 meq/L Ur Random Potassium 12.3 meq/L 01/04/18 Range/Units 19:52 WBC (4.5-11.0) 10^3/ul RBC (3.5-6.1) 10^6/uL Hgb (14.0-18.0) g/dL Hct (42.0-52.0) % MCV (80.0-105.0) fl MCH (25.0-35.0) pg MCHC (31.0-37.0) g/dl RDW (11.5-14.5) % Plt Count (120.0-450.0) 10^3/uL MPV (7.0-11.0) fl Gran % (50.0-68.0) % Lymph % (Auto) (22.0-35.0) % [place] % (Auto) (1.0-6.0) % Eos % (Auto) (1.5-5.0) % Baso % (Auto) (0.0-3.0) % Gran # (1.4-6.5) Lymph # (Auto) (1.2-3.4) [place] # (Auto) (0.1-0.6) Eos # (Auto) (0.0-0.7) Baso # (Auto) (0.0-2.0) K/mm3 Sodium 121 L (132-148) mmol/L Potassium 4.4 (3.6-5.0) mmol/L Chloride 87 L (98-107) mmol/L Carbon Dioxide 20 L (21-33) mmol/L Anion Gap 19 (10-20) BUN 9 (7-21) mg/dL Creatinine 0.7 L (0.8-1.5) mg/dl Est GFR ( Amer) > 60 Est GFR (Non-Af Amer) > 60 Random Glucose 84 (70-110) mg/dL Serum Osmolality (272-300) mosm/kg Uric Acid 3.8 (3.5-8.5) mg/dL Calcium 7.4 L (8.4-10.5) mg/dL Phosphorus (2.5-4.5) mg/dL Magnesium 1.8 (1.7-2.2) mg/dL Total Bilirubin (0.2-1.3) mg/dL AST (17-59) U/L ALT (7-56) U/L Alkaline Phosphatase (38-126) U/L Total Creatine Kinase 475 H (35-230) U/L CK-MB (CK-2) 5.1 H (0.0-3.6) ng/mL CK-MB (CK-2) % 1.1 L (2.5-3.0) % Total Protein (5.8-8.3) g/dL Albumin (3.0-4.8) g/dL Globulin gm/dL Albumin/Globulin Ratio (1.1-1.8) Triglycerides 127 (35-160) mg/dL Cholesterol 152 (130-200) mg/dL LDL Cholesterol Direct 49 (0-129) mg/dL HDL Cholesterol 81 H (29-60) mg/dL TSH 3rd Generation (0.46-4.68) mIU/mL Urine Color (YELLOW) Urine Appearance (CLEAR) Urine pH (4.7-8.0) Ur Specific [place] (1.005-1.035) Urine Protein (<30 mg/dL) mg/dL Urine Glucose (UA) (NEGATIVE) mg/dL Urine Ketones (NEGATIVE) mg/dL Urine Blood (NEGATIVE) Urine Nitrate (NEGATIVE) Urine Bilirubin (NEGATIVE) Urine Urobilinogen (<1 E.U./dL) E.U./dL Ur Leukocyte Esterase (NEGATIVE) Shahzad/uL Urine Osmolality (300-1000) mosm/kg Ur Random Sodium meq/L Ur Random Potassium meq/L Laboratory Results - last 24 hr 01/04/18 01/04/18 01/04/18 19:52 19:52 20:25 WBC RBC Hgb Hct MCV MCH MCHC RDW Plt Count MPV Gran % Lymph % (Auto) [place] % (Auto) Eos % (Auto) Baso % (Auto) Gran # Lymph # (Auto) [place] # (Auto) Eos # (Auto) Baso # (Auto) Sodium 121 L Potassium 4.4 Chloride 87 L Carbon Dioxide 20 L Anion Gap 19 BUN 9 Creatinine 0.7 L Est GFR ( Amer) > 60 Est GFR (Non-Af Amer) > 60 Random Glucose 84 Serum Osmolality 326 H Uric Acid 3.8 Calcium 7.4 L Phosphorus Magnesium 1.8 Total Bilirubin AST ALT Alkaline Phosphatase Total Creatine Kinase 475 H CK-MB (CK-2) 5.1 H CK-MB (CK-2) % 1.1 L Total Protein Albumin Globulin Albumin/Globulin Ratio Triglycerides 127 Cholesterol 152 LDL Cholesterol Direct 49 HDL Cholesterol 81 H TSH 3rd Generation 0.89 Urine Color Colorless Urine Appearance Clear Urine pH 6.5 Ur Specific [place] <= 1.005 Urine Protein Negative Urine Glucose (UA) Negative Urine Ketones Negative Urine Blood Negative Urine Nitrate Negative Urine Bilirubin Negative Urine Urobilinogen 0.2 Ur Leukocyte Esterase Negative Urine Osmolality Ur Random Sodium Ur Random Potassium 01/04/18 01/05/18 01/05/18 22:20 01:05 05:30 WBC 6.4 RBC 4.09 Hgb 12.8 L Hct 36.1 L MCV 88.3 MCH 31.3 MCHC 35.5 RDW 13.8 Plt Count 364 MPV 9.7 Gran % 72.1 H Lymph % (Auto) 14.9 L [place] % (Auto) 12.8 H Eos % (Auto) 0.0 L Baso % (Auto) 0.2 Gran # 4.61 Lymph # (Auto) 1.0 L [place] # (Auto) 0.8 H Eos # (Auto) 0.0 Baso # (Auto) 0.01 Sodium 127 L Potassium 4.1 Chloride 92 L Carbon Dioxide 22 Anion Gap 17 BUN 8 Creatinine 0.8 Est GFR ( Amer) > 60 Est GFR (Non-Af Amer) > 60 Random Glucose 97 Serum Osmolality Uric Acid Calcium 8.0 L Phosphorus Magnesium Total Bilirubin AST ALT Alkaline Phosphatase Total Creatine Kinase CK-MB (CK-2) CK-MB (CK-2) % Total Protein Albumin Globulin Albumin/Globulin Ratio Triglycerides Cholesterol LDL Cholesterol Direct HDL Cholesterol TSH 3rd Generation Urine Color Urine Appearance Urine pH Ur Specific [place] Urine Protein Urine Glucose (UA) Urine Ketones Urine Blood Urine Nitrate Urine Bilirubin Urine Urobilinogen Ur Leukocyte Esterase Urine Osmolality 164 L Ur Random Sodium 9 Ur Random Potassium 12.3 01/05/18 01/05/18 01/05/18 05:30 07:27 08:30 WBC RBC Hgb Hct MCV MCH MCHC RDW Plt Count MPV Gran % Lymph % (Auto) [place] % (Auto) Eos % (Auto) Baso % (Auto) Gran # Lymph # (Auto) [place] # (Auto) Eos # (Auto) Baso # (Auto) Sodium 131 L Potassium 4.2 Chloride 94 L Carbon Dioxide 23 Anion Gap 18 BUN 8 Creatinine 0.8 Est GFR ( Amer) > 60 Est GFR (Non-Af Amer) > 60 Random Glucose 81 Serum Osmolality Uric Acid Calcium 8.4 Phosphorus 2.7 Magnesium 1.9 Total Bilirubin 0.6 AST 77 H ALT 46 Alkaline Phosphatase 88 Total Creatine Kinase CK-MB (CK-2) CK-MB (CK-2) % Total Protein 7.5 Albumin 4.3 Globulin 3.2 Albumin/Globulin Ratio 1.3 Triglycerides Cholesterol LDL Cholesterol Direct HDL Cholesterol TSH 3rd Generation Urine Color Urine Appearance Urine pH Ur Specific [place] Urine Protein Urine Glucose (UA) Urine Ketones Urine Blood Urine Nitrate Urine Bilirubin Urine Urobilinogen Ur Leukocyte Esterase Urine Osmolality Ur Random Sodium Ur Random Potassium 01/05/18 08:34 WBC RBC Hgb Hct MCV MCH MCHC RDW Plt Count MPV Gran % Lymph % (Auto) [place] % (Auto) Eos % (Auto) Baso % (Auto) Gran # Lymph # (Auto) [place] # (Auto) Eos # (Auto) Baso # (Auto) Sodium 127 L Potassium 3.9 Chloride 92 L Carbon Dioxide 23 Anion Gap 16 BUN 8 Creatinine 0.7 L Est GFR ( Amer) > 60 Est GFR (Non-Af Amer) > 60 Random Glucose 170 H Serum Osmolality Uric Acid Calcium 8.3 L Phosphorus Magnesium Total Bilirubin AST ALT Alkaline Phosphatase Total Creatine Kinase CK-MB (CK-2) CK-MB (CK-2) % Total Protein Albumin Globulin Albumin/Globulin Ratio Triglycerides Cholesterol LDL Cholesterol Direct HDL Cholesterol TSH 3rd Generation Urine Color Urine Appearance Urine pH Ur Specific [place] Urine Protein Urine Glucose (UA) Urine Ketones Urine Blood Urine Nitrate Urine Bilirubin Urine Urobilinogen Ur Leukocyte Esterase Urine Osmolality Ur Random Sodium Ur Random Potassium Review of Systems - Review of Systems All systems: reviewed and no additional remarkable complaints except (as per HPI ) Critical Care Progress Note - Prophylaxis GI Prophylaxis GI: PPI - Prophylaxis DVT Prophylaxis DVT: Lovenox - Nutrition Nutrition: Nutrition Category Date Time Status NPO Diet [DIET] Diets 01/05/18 Breakfast Ordered Assessment/Plan - Assessment and Plan (Free Text) Assessment: 57 year old male with PMHx of HTN, DM, CAD s/p remote PCI, EtOH abuse (12-15 12 oz beers per day) who walked into the ED with AMS on the night of 01/04. Pt reported that he has had nonbloody vomiting for the past 3-[address] was normal. In the ED, pt was noted to have a sodium level of 117; likely due to beer potomania. Nephrology was consulted. Pt was given NS 1L bolus. Pt's repeat sodium was 121, at which point he was given another liter of NS. Pt's was over- corrected to a level of 127. Pt placed on Desmopressin and D5W as per Nephro. Pt is in the ICU for monitoring, and prevention, of DTs. Plan: Neuro: - Monitor for mental status changes - Monitor for DTs - AAOx3 at baseline - Head CT (01/04) show normal CT of the head - EtOH abuse; [facility] protocol - Chlordiazepoxide 50 mg PO Q8, Chlordiazepoxide 25 mg PO Q6 PRN - Lorazepam 2 mg IVP Q4 PRN Cardio: - Pt is hemodynamically stable - Metoprolol Tartrate 50 mg PO BID, Atorvastatin 20 mg PO - Maintain SBP<120, DBP<80 Pulm: - Maintain SpO2>92% - CXR (01/04) shows no acute changes GI: - Advance diet to HHD - Abdominal US (10/18/17) was reviewed which showed mild hypoechoic sludge within the gallbladder. Mild nonspecific heterogenous echogenicity of the liver. No evidence of hepatomegaly; spleen is large at 11.8 x 6.5 x 7.0 cm. - AST/ALT is consistent with alcohol abuse - Lipase is WNL - Total bilirubin is WNL - Pt/PTT/INR is WNL - Monitor for vomiting - Monitor H/H for in case of potential variceal or ulcerative bleeding. - Zofran IVP Q4 PRN - PPX for PTX Renal: - Sodium is 127; pt completed course of Desmopression and D5W as per Nephro - F/u BMP - Replete electrolytes as needed - Urine osmol (01/04) is 164, urine sodium is 9, urine potassuim is 12.3. - Nephro consulted, recs appreciated Endo: - Maintain euglycemia - Accucheck ID: - No signs of infectious etiology Heme: - Monitor H/H; currently stable Psych: - Hx of alcohol abuse - Folic Acid, Multivitamins, Thiamine PPX: PTX; Enoxaparin Dispo: Pt is stable and safe for transfer to telemetry for further monitoring Case was reviewed and discussed with attending physician, Dr. Jones <Hari Jones - Last Filed: 01/05/18 12:07> CCU Objective - Vital Signs / Intake & Output Vital Signs (Last 4 hours): Vital Signs Pulse 01/05/18 10:00 107 H Intake and Output (Last 8hrs): Intake & Output 01/04/18 01/05/18 01/05/18 22:59 06:59 14:59 Intake Total 820 Output Total 2700 Balance -1880 Weight 175 lb 6.4 oz Intake: IV 420 .9 420 Oral 400 Output: Urine 2700 Urine, Voided 2700 - Medications Active Medications: Active Medications Generic Name Dose Route Start Last Admin Trade Name Freq PRN Reason Stop Dose Admin Atorvastatin Calcium 20 mg 01/05/18 17:00 Lipitor PO DIN [facility] Chlordiazepoxide 50 mg 01/05/18 08:11 Librium PO Q8 [facility] Protocol Chlordiazepoxide 25 mg 01/05/18 08:12 Librium PO Q6 PRN Symptoms of alcohol withdrawl Protocol Enoxaparin Sodium 40 mg 01/05/18 10:00 01/05/18 11:04 Lovenox SC 40 mg DAILY [facility] Administration Protocol Folic Acid 1 mg 01/05/18 10:00 01/05/18 10:47 Folic Acid PO 1 mg DAILY [facility] Administration Lorazepam 2 mg 01/05/18 08:11 01/05/18 08:43 Ativan IVP 2 mg Q4 PRN Administration Agitation Protocol Metoprolol Tartrate 50 mg 01/05/18 10:00 01/05/18 10:47 Lopressor PO 50 mg BID [facility] Administration Multivitamins/Minerals 1 tab 01/05/18 10:00 01/05/18 10:47 Therapeutic-M Tab PO 1 tab DAILY [facility] Administration Ondansetron HCl 4 mg 01/05/18 07:02 Zofran Inj IVP Q4H PRN Nausea/Vomiting Pantoprazole Sodium 40 mg 01/06/18 06:00 Protonix Ec Tab PO 0600 [facility] Thiamine HCl 100 mg 01/05/18 10:00 01/05/18 10:46 Vitamin B1 Tab PO 100 mg DAILY [facility] Administration - Patient Studies Lab Studies: Lab Studies 01/05/18 01/05/18 01/05/18 Range/Units 08:34 08:30 07:27 WBC (4.5-11.0) 10^3/ul RBC (3.5-6.1) 10^6/uL Hgb (14.0-18.0) g/dL Hct (42.0-52.0) % MCV (80.0-105.0) fl MCH (25.0-35.0) pg MCHC (31.0-37.0) g/dl RDW (11.5-14.5) % Plt Count (120.0-450.0) 10^3/uL MPV (7.0-11.0) fl Gran % (50.0-68.0) % Lymph % (Auto) (22.0-35.0) % [place] % (Auto) (1.0-6.0) % Eos % (Auto) (1.5-5.0) % Baso % (Auto) (0.0-3.0) % Gran # (1.4-6.5) Lymph # (Auto) (1.2-3.4) [place] # (Auto) (0.1-0.6) Eos # (Auto) (0.0-0.7) Baso # (Auto) (0.0-2.0) K/mm3 Sodium 127 L (132-148) mmol/L Potassium 3.9 (3.6-5.0) mmol/L Chloride 92 L (98-107) mmol/L Carbon Dioxide 23 (21-33) mmol/L Anion Gap 16 (10-20) BUN 8 (7-21) mg/dL Creatinine 0.7 L (0.8-1.5) mg/dl Est GFR ( Amer) > 60 Est GFR (Non-Af Amer) > 60 Random Glucose 170 H (70-110) mg/dL Serum Osmolality (272-300) mosm/kg Uric Acid (3.5-8.5) mg/dL Calcium 8.3 L (8.4-10.5) mg/dL Phosphorus 2.7 (2.5-4.5) mg/dL Magnesium 1.9 (1.7-2.2) mg/dL Total Bilirubin (0.2-1.3) mg/dL AST (17-59) U/L ALT (7-56) U/L Alkaline Phosphatase (38-126) U/L Total Creatine Kinase (35-230) U/L CK-MB (CK-2) (0.0-3.6) ng/mL CK-MB (CK-2) % (2.5-3.0) % Total Protein (5.8-8.3) g/dL Albumin (3.0-4.8) g/dL Globulin gm/dL Albumin/Globulin Ratio (1.1-1.8) Triglycerides (35-160) mg/dL Cholesterol (130-200) mg/dL LDL Cholesterol Direct (0-129) mg/dL HDL Cholesterol (29-60) mg/dL TSH 3rd Generation (0.46-4.68) mIU/mL Urine Color (YELLOW) Urine Appearance (CLEAR) Urine pH (4.7-8.0) Ur Specific [place] (1.005-1.035) Urine Protein (<30 mg/dL) mg/dL Urine Glucose (UA) (NEGATIVE) mg/dL Urine Ketones (NEGATIVE) mg/dL Urine Blood (NEGATIVE) Urine Nitrate (NEGATIVE) Urine Bilirubin (NEGATIVE) Urine Urobilinogen (<1 E.U./dL) E.U./dL Ur Leukocyte Esterase (NEGATIVE) Shazhad/uL Urine Osmolality (300-1000) mosm/kg Ur Random Sodium meq/L Ur Random Potassium meq/L 01/05/18 01/05/18 01/05/18 Range/Units 05:30 05:30 01:05 WBC 6.4 (4.5-11.0) 10^3/ul RBC 4.09 (3.5-6.1) 10^6/uL Hgb 12.8 L (14.0-18.0) g/dL Hct 36.1 L (42.0-52.0) % MCV 88.3 (80.0-105.0) fl MCH 31.3 (25.0-35.0) pg MCHC 35.5 (31.0-37.0) g/dl RDW 13.8 (11.5-14.5) % Plt Count 364 (120.0-450.0) 10^3/uL MPV 9.7 (7.0-11.0) fl Gran % 72.1 H (50.0-68.0) % Lymph % (Auto) 14.9 L (22.0-35.0) % [place] % (Auto) 12.8 H (1.0-6.0) % Eos % (Auto) 0.0 L (1.5-5.0) % Baso % (Auto) 0.2 (0.0-3.0) % Gran # 4.61 (1.4-6.5) Lymph # (Auto) 1.0 L (1.2-3.4) [place] # (Auto) 0.8 H (0.1-0.6) Eos # (Auto) 0.0 (0.0-0.7) Baso # (Auto) 0.01 (0.0-2.0) K/mm3 Sodium 131 L 127 L (132-148) mmol/L Potassium 4.2 4.1 (3.6-5.0) mmol/L Chloride 94 L 92 L (98-107) mmol/L Carbon Dioxide 23 22 (21-33) mmol/L Anion Gap 18 17 (10-20) BUN 8 8 (7-21) mg/dL Creatinine 0.8 0.8 (0.8-1.5) mg/dl Est GFR ( Amer) > 60 > 60 Est GFR (Non-Af Amer) > 60 > 60 Random Glucose 81 97 (70-110) mg/dL Serum Osmolality (272-300) mosm/kg Uric Acid (3.5-8.5) mg/dL Calcium 8.4 8.0 L (8.4-10.5) mg/dL Phosphorus (2.5-4.5) mg/dL Magnesium (1.7-2.2) mg/dL Total Bilirubin 0.6 (0.2-1.3) mg/dL AST 77 H (17-59) U/L ALT 46 (7-56) U/L Alkaline Phosphatase 88 (38-126) U/L Total Creatine Kinase (35-230) U/L CK-MB (CK-2) (0.0-3.6) ng/mL CK-MB (CK-2) % (2.5-3.0) % Total Protein 7.5 (5.8-8.3) g/dL Albumin 4.3 (3.0-4.8) g/dL Globulin 3.2 gm/dL Albumin/Globulin Ratio 1.3 (1.1-1.8) Triglycerides (35-160) mg/dL Cholesterol (130-200) mg/dL LDL Cholesterol Direct (0-129) mg/dL HDL Cholesterol (29-60) mg/dL TSH 3rd Generation (0.46-4.68) mIU/mL Urine Color (YELLOW) Urine Appearance (CLEAR) Urine pH (4.7-8.0) Ur Specific [place] (1.005-1.035) Urine Protein (<30 mg/dL) mg/dL Urine Glucose (UA) (NEGATIVE) mg/dL Urine Ketones (NEGATIVE) mg/dL Urine Blood (NEGATIVE) Urine Nitrate (NEGATIVE) Urine Bilirubin (NEGATIVE) Urine Urobilinogen (<1 E.U./dL) E.U./dL Ur Leukocyte Esterase (NEGATIVE) Shahzad/uL Urine Osmolality (300-1000) mosm/kg Ur Random Sodium meq/L Ur Random Potassium meq/L 01/04/18 01/04/18 01/04/18 Range/Units 22:20 20:25 19:52 WBC (4.5-11.0) 10^3/ul RBC (3.5-6.1) 10^6/uL Hgb (14.0-18.0) g/dL Hct (42.0-52.0) % MCV (80.0-105.0) fl MCH (25.0-35.0) pg MCHC (31.0-37.0) g/dl RDW (11.5-14.5) % Plt Count (120.0-450.0) 10^3/uL MPV (7.0-11.0) fl Gran % (50.0-68.0) % Lymph % (Auto) (22.0-35.0) % [place] % (Auto) (1.0-6.0) % Eos % (Auto) (1.5-5.0) % Baso % (Auto) (0.0-3.0) % Gran # (1.4-6.5) Lymph # (Auto) (1.2-3.4) [place] # (Auto) (0.1-0.6) Eos # (Auto) (0.0-0.7) Baso # (Auto) (0.0-2.0) K/mm3 Sodium (132-148) mmol/L Potassium (3.6-5.0) mmol/L Chloride (98-107) mmol/L Carbon Dioxide (21-33) mmol/L Anion Gap (10-20) BUN (7-21) mg/dL Creatinine (0.8-1.5) mg/dl Est GFR ( Amer) Est GFR (Non-Af Amer) Random Glucose (70-110) mg/dL Serum Osmolality 326 H (272-300) mosm/kg Uric Acid (3.5-8.5) mg/dL Calcium (8.4-10.5) mg/dL Phosphorus (2.5-4.5) mg/dL Magnesium (1.7-2.2) mg/dL Total Bilirubin (0.2-1.3) mg/dL AST (17-59) U/L ALT (7-56) U/L Alkaline Phosphatase (38-126) U/L Total Creatine Kinase (35-230) U/L CK-MB (CK-2) (0.0-3.6) ng/mL CK-MB (CK-2) % (2.5-3.0) % Total Protein (5.8-8.3) g/dL Albumin (3.0-4.8) g/dL Globulin gm/dL Albumin/Globulin Ratio (1.1-1.8) Triglycerides (35-160) mg/dL Cholesterol (130-200) mg/dL LDL Cholesterol Direct (0-129) mg/dL HDL Cholesterol (29-60) mg/dL TSH 3rd Generation 0.89 (0.46-4.68) mIU/mL Urine Color Colorless (YELLOW) Urine Appearance Clear (CLEAR) Urine pH 6.5 (4.7-8.0) Ur Specific [place] <= 1.005 (1.005-1.035) Urine Protein Negative (<30 mg/dL) mg/dL Urine Glucose (UA) Negative (NEGATIVE) mg/dL Urine Ketones Negative (NEGATIVE) mg/dL Urine Blood Negative (NEGATIVE) Urine Nitrate Negative (NEGATIVE) Urine Bilirubin Negative (NEGATIVE) Urine Urobilinogen 0.2 (<1 E.U./dL) E.U./dL Ur Leukocyte Esterase Negative (NEGATIVE) Shahzad/uL Urine Osmolality 164 L (300-1000) mosm/kg Ur Random Sodium 9 meq/L Ur Random Potassium 12.3 meq/L 01/04/18 Range/Units 19:52 WBC (4.5-11.0) 10^3/ul RBC (3.5-6.1) 10^6/uL Hgb (14.0-18.0) g/dL Hct (42.0-52.0) % MCV (80.0-105.0) fl MCH (25.0-35.0) pg MCHC (31.0-37.0) g/dl RDW (11.5-14.5) % Plt Count (120.0-450.0) 10^3/uL MPV (7.0-11.0) fl Gran % (50.0-68.0) % Lymph % (Auto) (22.0-35.0) % [place] % (Auto) (1.0-6.0) % Eos % (Auto) (1.5-5.0) % Baso % (Auto) (0.0-3.0) % Gran # (1.4-6.5) Lymph # (Auto) (1.2-3.4) [place] # (Auto) (0.1-0.6) Eos # (Auto) (0.0-0.7) Baso # (Auto) (0.0-2.0) K/mm3 Sodium 121 L (132-148) mmol/L Potassium 4.4 (3.6-5.0) mmol/L Chloride 87 L (98-107) mmol/L Carbon Dioxide 20 L (21-33) mmol/L Anion Gap 19 (10-20) BUN 9 (7-21) mg/dL Creatinine 0.7 L (0.8-1.5) mg/dl Est GFR ( Amer) > 60 Est GFR (Non-Af Amer) > 60 Random Glucose 84 (70-110) mg/dL Serum Osmolality (272-300) mosm/kg Uric Acid 3.8 (3.5-8.5) mg/dL Calcium 7.4 L (8.4-10.5) mg/dL Phosphorus (2.5-4.5) mg/dL Magnesium 1.8 (1.7-2.2) mg/dL Total Bilirubin (0.2-1.3) mg/dL AST (17-59) U/L ALT (7-56) U/L Alkaline Phosphatase (38-126) U/L Total Creatine Kinase 475 H (35-230) U/L CK-MB (CK-2) 5.1 H (0.0-3.6) ng/mL CK-MB (CK-2) % 1.1 L (2.5-3.0) % Total Protein (5.8-8.3) g/dL Albumin (3.0-4.8) g/dL Globulin gm/dL Albumin/Globulin Ratio (1.1-1.8) Triglycerides 127 (35-160) mg/dL Cholesterol 152 (130-200) mg/dL LDL Cholesterol Direct 49 (0-129) mg/dL HDL Cholesterol 81 H (29-60) mg/dL TSH 3rd Generation (0.46-4.68) mIU/mL Urine Color (YELLOW) Urine Appearance (CLEAR) Urine pH (4.7-8.0) Ur Specific [place] (1.005-1.035) Urine Protein (<30 mg/dL) mg/dL Urine Glucose (UA) (NEGATIVE) mg/dL Urine Ketones (NEGATIVE) mg/dL Urine Blood (NEGATIVE) Urine Nitrate (NEGATIVE) Urine Bilirubin (NEGATIVE) Urine Urobilinogen (<1 E.U./dL) E.U./dL Ur Leukocyte Esterase (NEGATIVE) Shahzad/uL Urine Osmolality (300-1000) mosm/kg Ur Random Sodium meq/L Ur Random Potassium meq/L Laboratory Results - last 24 hr 01/04/18 01/04/18 01/04/18 19:52 19:52 20:25 WBC RBC Hgb Hct MCV MCH MCHC RDW Plt Count MPV Gran % Lymph % (Auto) [place] % (Auto) Eos % (Auto) Baso % (Auto) Gran # Lymph # (Auto) [place] # (Auto) Eos # (Auto) Baso # (Auto) Sodium 121 L Potassium 4.4 Chloride 87 L Carbon Dioxide 20 L Anion Gap 19 BUN 9 Creatinine 0.7 L Est GFR ( Amer) > 60 Est GFR (Non-Af Amer) > 60 Random Glucose 84 Serum Osmolality 326 H Uric Acid 3.8 Calcium 7.4 L Phosphorus Magnesium 1.8 Total Bilirubin AST ALT Alkaline Phosphatase Total Creatine Kinase 475 H CK-MB (CK-2) 5.1 H CK-MB (CK-2) % 1.1 L Total Protein Albumin Globulin Albumin/Globulin Ratio Triglycerides 127 Cholesterol 152 LDL Cholesterol Direct 49 HDL Cholesterol 81 H TSH 3rd Generation 0.89 Urine Color Colorless Urine Appearance Clear Urine pH 6.5 Ur Specific [place] <= 1.005 Urine Protein Negative Urine Glucose (UA) Negative Urine Ketones Negative Urine Blood Negative Urine Nitrate Negative Urine Bilirubin Negative Urine Urobilinogen 0.2 Ur Leukocyte Esterase Negative Urine Osmolality Ur Random Sodium Ur Random Potassium 01/04/18 01/05/18 01/05/18 22:20 01:05 05:30 WBC 6.4 RBC 4.09 Hgb 12.8 L Hct 36.1 L MCV 88.3 MCH 31.3 MCHC 35.5 RDW 13.8 Plt Count 364 MPV 9.7 Gran % 72.1 H Lymph % (Auto) 14.9 L [place] % (Auto) 12.8 H Eos % (Auto) 0.0 L Baso % (Auto) 0.2 Gran # 4.61 Lymph # (Auto) 1.0 L [place] # (Auto) 0.8 H Eos # (Auto) 0.0 Baso # (Auto) 0.01 Sodium 127 L Potassium 4.1 Chloride 92 L Carbon Dioxide 22 Anion Gap 17 BUN 8 Creatinine 0.8 Est GFR ( Amer) > 60 Est GFR (Non-Af Amer) > 60 Random Glucose 97 Serum Osmolality Uric Acid Calcium 8.0 L Phosphorus Magnesium Total Bilirubin AST ALT Alkaline Phosphatase Total Creatine Kinase CK-MB (CK-2) CK-MB (CK-2) % Total Protein Albumin Globulin Albumin/Globulin Ratio Triglycerides Cholesterol LDL Cholesterol Direct HDL Cholesterol TSH 3rd Generation Urine Color Urine Appearance Urine pH Ur Specific [place] Urine Protein Urine Glucose (UA) Urine Ketones Urine Blood Urine Nitrate Urine Bilirubin Urine Urobilinogen Ur Leukocyte Esterase Urine Osmolality 164 L Ur Random Sodium 9 Ur Random Potassium 12.3 01/05/18 01/05/18 01/05/18 05:30 07:27 08:30 WBC RBC Hgb Hct MCV MCH MCHC RDW Plt Count MPV Gran % Lymph % (Auto) [place] % (Auto) Eos % (Auto) Baso % (Auto) Gran # Lymph # (Auto) [place] # (Auto) Eos # (Auto) Baso # (Auto) Sodium 131 L Potassium 4.2 Chloride 94 L Carbon Dioxide 23 Anion Gap 18 BUN 8 Creatinine 0.8 Est GFR ( Amer) > 60 Est GFR (Non-Af Amer) > 60 Random Glucose 81 Serum Osmolality Uric Acid Calcium 8.4 Phosphorus 2.7 Magnesium 1.9 Total Bilirubin 0.6 AST 77 H ALT 46 Alkaline Phosphatase 88 Total Creatine Kinase CK-MB (CK-2) CK-MB (CK-2) % Total Protein 7.5 Albumin 4.3 Globulin 3.2 Albumin/Globulin Ratio 1.3 Triglycerides Cholesterol LDL Cholesterol Direct HDL Cholesterol TSH 3rd Generation Urine Color Urine Appearance Urine pH Ur Specific [place] Urine Protein Urine Glucose (UA) Urine Ketones Urine Blood Urine Nitrate Urine Bilirubin Urine Urobilinogen Ur Leukocyte Esterase Urine Osmolality Ur Random Sodium Ur Random Potassium 01/05/18 08:34 WBC RBC Hgb Hct MCV MCH MCHC RDW Plt Count MPV Gran % Lymph % (Auto) [place] % (Auto) Eos % (Auto) Baso % (Auto) Gran # Lymph # (Auto) [place] # (Auto) Eos # (Auto) Baso # (Auto) Sodium 127 L Potassium 3.9 Chloride 92 L Carbon Dioxide 23 Anion Gap 16 BUN 8 Creatinine 0.7 L Est GFR ( Amer) > 60 Est GFR (Non-Af Amer) > 60 Random Glucose 170 H Serum Osmolality Uric Acid Calcium 8.3 L Phosphorus Magnesium Total Bilirubin AST ALT Alkaline Phosphatase Total Creatine Kinase CK-MB (CK-2) CK-MB (CK-2) % Total Protein Albumin Globulin Albumin/Globulin Ratio Triglycerides Cholesterol LDL Cholesterol Direct HDL Cholesterol TSH 3rd Generation Urine Color Urine Appearance Urine pH Ur Specific [place] Urine Protein Urine Glucose (UA) Urine Ketones Urine Blood Urine Nitrate Urine Bilirubin Urine Urobilinogen Ur Leukocyte Esterase Urine Osmolality Ur Random Sodium Ur Random Potassium Critical Care Progress Note - Nutrition Nutrition: Nutrition Category Date Time Status Heart Healthy Diet [DIET] Diets 01/05/18 Breakfast Active Assessment/Plan - Assessment and Plan (Free Text) Plan: Patient seen and examined on rounds with resident, agree with note with following additions/exceptions: Patient is 57yo male with PMhx of heavy EtOH abuse, was found down on ground brought in by EMS, found to have hyponatremia, and EtOH intoxication. Currently afebrile, BP stable, clinically improving, AAOx3, NAD. Na 117-->127, no focal neurological signs or symptoms, nephrology consulted Mild extension tremor on exam, on CIWA protocol, stable EtOH withdrawal Hyponatremia Dehydration Recommend: - supp o2 as needed - duonebs PRN - NO ID issues - BP control - hold off further IVF, repeat BMP q6hr - follow up nephro - CIWA protocol - Ativan PRN - MVT, Thiamine, Folic Acid - GI ppx - DVT ppx - Transfer to telemetry
[2018-01-05] MEDS: Multivitamin With Minerals Tab PO SCH (10:47)
[2018-01-05] MEDS: Enoxaparin 40 mg Syringe SC SCH (11:04)
[2018-01-05 13:15] LABS: BLOOD UREA NITROGEN 9 mg/dL (7-21); CALCIUM 8.4 mg/dL (8.4-10.5); GFR AFRICAN-AMERICAN > 60; GFR NON-AFRICAN AMERICAN > 60
--- NOTE | 2018-01-05 13:29 | CP.PCM.PN ---
Subjective - Date & Time of Evaluation Date of Evaluation: 01/05/18 Time of Evaluation: 09:30 - Subjective Subjective: Francisco Rosario PGY-1 [facility] Progress Note Pt was seen and examined in ICU. Patient had a bowel movement right before evaluation. Patient complains of epigastric abdomen pain, nausea, and episodes vomiting. As per nurse, patient had tremulous hands in the morning and was given Ativan. Patient states he has been drinking 12-14 beers for the past month and has been having episodes of non-bloody emesis about 5-10 times per day. Patient states his last drink was yesterday before coming to the ED for alcohol detox. Patient had one episode of vomiting that was clear and scant before evaluation. Patient denies chest pain, shortness of breath, and hallucinations. Objective - Vital Signs/Intake and Output Vital Signs (last 24 hours): Temp Pulse Resp BP Pulse Ox 98.3 F 107 H 15 139/70 93 L 01/05/18 00:38 01/05/18 10:00 01/05/18 01:20 01/05/18 01:00 01/05/18 01:20 Intake and Output: 01/05/18 01/05/18 06:59 18:59 Intake Total 820 Output Total 2700 Balance -1880 - Medications Medications: Current Medications Amlodipine Besylate (Norvasc) 10 mg PO DAILY [facility] Atorvastatin Calcium (Lipitor) 20 mg PO DIN [facility] Chlordiazepoxide (Librium) 50 mg PO Q8 [facility] PRN Reason: Protocol Chlordiazepoxide (Librium) 25 mg PO Q6 PRN; Protocol PRN Reason: Symptoms of alcohol withdrawl Enoxaparin Sodium (Lovenox) 40 mg SC DAILY [facility] PRN Reason: Protocol Last Admin: 01/05/18 11:04 Dose: 40 mg Folic Acid (Folic Acid) 1 mg PO DAILY [facility] Last Admin: 01/05/18 10:47 Dose: 1 mg Lorazepam (Ativan) 2 mg IVP Q4 PRN; Protocol PRN Reason: Agitation Last Admin: 01/05/18 08:43 Dose: 2 mg Metoprolol Tartrate (Lopressor) 50 mg PO BID [facility] Last Admin: 01/05/18 10:47 Dose: 50 mg Multivitamins/Minerals (Therapeutic-M Tab) 1 tab PO DAILY [facility] Last Admin: 01/05/18 10:47 Dose: 1 tab Ondansetron HCl (Zofran Inj) 4 mg IVP Q4H PRN PRN Reason: Nausea/Vomiting Pantoprazole Sodium (Protonix Ec Tab) 40 mg PO 0600 [facility] Thiamine HCl (Vitamin B1 Tab) 100 mg PO DAILY [facility] Last Admin: 01/05/18 10:46 Dose: 100 mg - Labs Labs: 01/05/18 05:30 01/05/18 13:00 PT 11.4 SECONDS (9.4-12.5) 01/04/18 16:51 INR 1.00 (0.93-1.08) 01/04/18 16:51 APTT 31.1 Seconds (25.1-36.5) 01/04/18 16:51 - Constitutional Appears: No Acute Distress, Unkempt, Older Than Stated Age - Head Exam Head Exam: ATRAUMATIC, NORMAL INSPECTION, NORMOCEPHALIC - Eye Exam Eye Exam: EOMI, Normal appearance - Respiratory Exam Respiratory Exam: Clear to Ausculation Bilateral, NORMAL BREATHING PATTERN - Cardiovascular Exam Cardiovascular Exam: REGULAR RHYTHM, +S1, +S2. absent: JVD, Rubs - GI/Abdominal Exam GI & Abdominal Exam: Soft, Tenderness, Normal Bowel Sounds. absent: Distended Additional comments: tenderness to deep palpation in epigastric region - Extremities Exam Extremities Exam: Normal Inspection. absent: Joint Swelling - Neurological Exam Neurological Exam: Alert, Oriented x3 - Psychiatric Exam Additional comments: negative for hallucinations - Skin Skin Exam: Normal Color, Warm Assessment and Plan - Assessment and Plan (Free Text) Assessment: 57 yo M w/ pmh of htn, CAD s/p remote PCI, ETOH abuse, presented to ED today with 3-4 days of vomiting; nephrology being consulted for severe hyponatremia Plan: Hyponatremia -On admission patient Na 117; was started on NS 1L bolus; Na improved to 121 -Patient was given IVF at 100/hr; -In AM today Na was 131 -Started Ddavp and 5% dextrose -Ordered BMP q4 hours -No neurologic symptoms -Patient was most likely volume depleted secondary to increased diuresis and vomiting prior to admission -ADH levels likely high due to volume depletion; Introduction of desmopressin will decrease ADH and need to retain water -Next BMP: Na was 127; Target sodium 125 Rhabdomyolysis -CK at admission was 475; relatively mild -IVF dc'ed in setting of hyponatremia -possible due to trauma before admission Hypocalcemia (Resolved) -Etiology still unclear; Ca 8.4 -Awaiting phos, mag, PTH, 25-OH vit D levels Hypertension -Held at admission due to low blood pressures on admission secondary to volume depletion likely -Restarted BP medications -BP 139/70 (controlled)
--- NOTE | 2018-01-05 20:17 | CARD ---
APPROVED REPORT Date of service: 01/04/2018 EKG Measurement Heart [id number] <Conclusion> Sinus rhythm with 1st degree AV block Otherwise normal ECG
[2018-01-05 22:11] LABS: BLOOD UREA NITROGEN 11 mg/dL (7-21); CALCIUM 8.5 mg/dL (8.4-10.5); GFR AFRICAN-AMERICAN > 60; GFR NON-AFRICAN AMERICAN > 60
[2018-01-06 04:18] LABS: ALB/GLOB RATIO 1.3 (1.1-1.8); ALT/SGPT 52 U/L (7-56); AST/SGOT 88 U/L (17-59); BLOOD UREA NITROGEN 9 mg/dL (7-21); CALCIUM 8.6 mg/dL (8.4-10.5); GFR AFRICAN-AMERICAN > 60; GFR NON-AFRICAN AMERICAN > 60
[2018-01-06 04:27] LABS: BASO # 0.03 K/mm3 (0.0-2.0); BASO % 0.6 % (0.0-3.0); EOS % 0.6 % (1.5-5.0); GRAN # 2.46 (1.4-6.5); GRAN % 51.8 % (50.0-68.0); HEMOGLOBIN 12.5 g/dL (14.0-18.0); LYMPH # 1.4 (1.2-3.4); LYMPH % 29.9 % (22.0-35.0); MEAN CELL VOLUME 89.9 fl (80.0-105.0); MEAN CORPUSCULAR HEMOGLOBIN 31.4 pg (25.0-35.0); MEAN CORPUSCULAR HGB CONC 34.9 g/dl (31.0-37.0); MEAN PLATELET VOLUME 9.6 fl (7.0-11.0); MONO # 0.8 (0.1-0.6); MONO % 17.1 % (1.0-6.0); RBC 3.98 10^6/uL (3.5-6.1); RED CELL DISTRIBUTION WIDTH 13.7 % (11.5-14.5); WHITE BLOOD COUNT 4.8 10^3/ul (4.5-11.0)
[2018-01-06] MEDS: Pantoprazole 40 mg EC Tab PO SCH (06:55)
[2018-01-06 08:09] LABS: BLOOD UREA NITROGEN 8 mg/dL (7-21); CALCIUM 8.8 mg/dL (8.4-10.5); GFR AFRICAN-AMERICAN > 60; GFR NON-AFRICAN AMERICAN > 60
--- NOTE | 2018-01-06 09:26 | CP.PCM.PN ---
Subjective - Date & Time of Evaluation Date of Evaluation: 01/06/18 Time of Evaluation: 08:00 - Subjective Subjective: Francisco Rosario PGY-1 [facility] Progress Note Patient seen and examined in ICU room. Patient reports no abdominal pain. Patient reports good appetite with no nausea or vomiting. Patient ambulates with assistance to urinate but reports no urinary symptoms. Patient denies headache, confusion, hallucinations. Patient denies epigastric abdominal pain today. He stated that yesterday it felt like a burning sensation. Patient denies chest pain, shortness of breath, constipation or diarrhea. No acute events overnight as per nursing. Objective - Vital Signs/Intake and Output Vital Signs (last 24 hours): Temp Pulse Resp BP Pulse Ox 98.3 F 93 H 22 172/75 H 95 01/05/18 00:38 01/06/18 08:00 01/06/18 08:00 01/06/18 08:00 01/06/18 08:00 Intake and Output: 01/06/18 01/06/18 06:59 18:59 Intake Total 600 Output Total 1950 Balance -1350 - Medications Medications: Current Medications Amlodipine Besylate (Norvasc) 10 mg PO DAILY [facility] Atorvastatin Calcium (Lipitor) 20 mg PO DIN [facility] Last Admin: 01/05/18 16:52 Dose: 20 mg Chlordiazepoxide (Librium) 50 mg PO Q8 [facility] PRN Reason: Protocol Last Admin: 01/06/18 06:55 Dose: 50 mg Chlordiazepoxide (Librium) 25 mg PO Q6 PRN; Protocol PRN Reason: Symptoms of alcohol withdrawl Enoxaparin Sodium (Lovenox) 40 mg SC DAILY [facility] PRN Reason: Protocol Last Admin: 01/05/18 11:04 Dose: 40 mg Folic Acid (Folic Acid) 1 mg PO DAILY [facility] Last Admin: 01/05/18 10:47 Dose: 1 mg Lorazepam (Ativan) 2 mg IVP Q4 PRN; Protocol PRN Reason: Agitation Last Admin: 01/06/18 04:29 Dose: 2 mg Metoprolol Tartrate (Lopressor) 50 mg PO BID [facility] Last Admin: 01/05/18 17:14 Dose: 50 mg Multivitamins/Minerals (Therapeutic-M Tab) 1 tab PO DAILY [facility] Last Admin: 01/05/18 10:47 Dose: 1 tab Ondansetron HCl (Zofran Inj) 4 mg IVP Q4H PRN PRN Reason: Nausea/Vomiting Pantoprazole Sodium (Protonix Ec Tab) 40 mg PO 0600 [facility] Last Admin: 01/06/18 06:55 Dose: 40 mg Thiamine HCl (Vitamin B1 Tab) 100 mg PO DAILY [facility] Last Admin: 01/05/18 10:46 Dose: 100 mg - Labs Labs: 01/06/18 04:00 01/06/18 07:50 PT 11.4 SECONDS (9.4-12.5) 01/04/18 16:51 INR 1.00 (0.93-1.08) 01/04/18 16:51 APTT 31.1 Seconds (25.1-36.5) 01/04/18 16:51 - Additional Findings Additional findings: - Constitutional Appears: No Acute Distress, Unkempt, Older Than Stated Age - Head Exam Head Exam: ATRAUMATIC, NORMAL INSPECTION, NORMOCEPHALIC - Eye Exam Eye Exam: EOMI, Normal appearance - Respiratory Exam Respiratory Exam: Clear to Ausculation Bilateral, NORMAL BREATHING PATTERN - Cardiovascular Exam Cardiovascular Exam: REGULAR RHYTHM, +S1, +S2. absent: JVD, Rubs - GI/Abdominal Exam GI & Abdominal Exam: Soft, Normal Bowel Sounds. absent: Distended - Extremities Exam Extremities Exam: Normal Inspection. absent: Pedal Edema - Neurological Exam Neurological Exam: Alert, Oriented x3 - Psychiatric Exam Additional comments: negative for hallucinations - Skin Skin Exam: Normal Color, Warm Assessment and Plan - Assessment and Plan (Free Text) Assessment: 57 yo M w/ pmh of htn, CAD s/p remote PCI, ETOH abuse, presented to ED today with 3-4 days of vomiting for alcohol detox; nephrology being consulted for severe hyponatremia. Plan: Hyponatremia -On admission patient Na 117; was started on NS 1L bolus; Na improved to 121 -Patient was given IVF at 100/hr then reduced to 60/hr then dc'ed; -Given Ddavp and 5% dextrose yesterday and stopped; -Na 132 today -Ordered BMP q4 hours -No neurologic symptoms -Patient was most likely volume depleted secondary to increased diuresis and vomiting prior to admission -Continue to monitor; Rhabdomyolysis -CK at admission was 475; relatively mild -IVF dc'ed in setting of hyponatremia -possible due to trauma before admission -Continue to monitor; Hypocalcemia (Resolved) -Etiology still unclear; Ca 8.8 -Awaiting PTH -25-OH vit D levels - 36.6 -Phos- 2.7 -Mag- 1.9 Hypertension -Held at admission due to low blood pressures on admission secondary to volume depletion likely -Restarted BP medications -BP 139/70 (controlled) Medical management discussed with hourly manager, Dr. Pradhan.
[2018-01-06] MEDS: Multivitamin With Minerals Tab PO SCH (09:29)
[2018-01-06] MEDS: Enoxaparin 40 mg Syringe SC SCH (09:30)
--- NOTE | 2018-01-06 12:50 | CP.PCM.PN ---
<Can Watts - Last Filed: 01/06/18 23:43> Subjective - Date & Time of Evaluation Date of Evaluation: 01/06/18 Time of Evaluation: 12:28 - Subjective Subjective: Pt. seen this AM at bedside in ICU; no acute events overnight; states that his tremors are continuing to improve. Denies any auditory/ visual hallucinations, denies any, Chest Pain, Palpitations, SOB, cough, abd pain NVDC. This AM pt. only required 2mg ativan. CIWA has been stable throughout admission. Objective - Vital Signs/Intake and Output Vital Signs (last 24 hours): Temp Pulse Resp BP Pulse Ox 98.1 F 83 16 145/76 96 01/06/18 11:30 01/06/18 10:00 01/06/18 10:00 01/06/18 09:38 01/06/18 10:00 Intake and Output: 01/06/18 01/06/18 06:59 18:59 Intake Total 600 Output Total 1950 Balance -1350 - Medications Medications: Current Medications Amlodipine Besylate (Norvasc) 10 mg PO DAILY [facility] Last Admin: 01/06/18 09:29 Dose: 10 mg Atorvastatin Calcium (Lipitor) 20 mg PO DIN [facility] Last Admin: 01/05/18 16:52 Dose: 20 mg Enoxaparin Sodium (Lovenox) 40 mg SC DAILY [facility] PRN Reason: Protocol Last Admin: 01/06/18 09:30 Dose: 40 mg Folic Acid (Folic Acid) 1 mg PO DAILY [facility] Last Admin: 01/06/18 09:29 Dose: 1 mg Lorazepam (Ativan) 2 mg IVP Q4 PRN; Protocol PRN Reason: Agitation Last Admin: 01/06/18 04:29 Dose: 2 mg Metoprolol Tartrate (Lopressor) 50 mg PO BID [facility] Last Admin: 01/06/18 09:29 Dose: 50 mg Multivitamins/Minerals (Therapeutic-M Tab) 1 tab PO DAILY [facility] Last Admin: 01/06/18 09:29 Dose: 1 tab Ondansetron HCl (Zofran Inj) 4 mg IVP Q4H PRN PRN Reason: Nausea/Vomiting Pantoprazole Sodium (Protonix Ec Tab) 40 mg PO 0600 [facility] Last Admin: 01/06/18 06:55 Dose: 40 mg Thiamine HCl (Vitamin B1 Tab) 100 mg PO DAILY [facility] Last Admin: 01/06/18 09:29 Dose: 100 mg - Labs Labs: 01/06/18 04:00 01/06/18 07:50 PT 11.4 SECONDS (9.4-12.5) 01/04/18 16:51 INR 1.00 (0.93-1.08) 01/04/18 16:51 APTT 31.1 Seconds (25.1-36.5) 01/04/18 16:51 Physical Exam: - Constitutional Appears: Non-toxic, No Acute Distress, Not as agitated or tremulous as day before. - Head Exam Head Exam: ATRAUMATIC, NORMAL INSPECTION - Eye Exam Eye Exam: EOMI, PERRL. absent: Scleral icterus - ENT Exam ENT Exam: Mucous Membranes Moist - Respiratory Exam Respiratory Exam: Clear to Ausculation Bilateral, NORMAL BREATHING PATTERN. absent: Rhonchi, Wheezes - Cardiovascular Exam Cardiovascular Exam: REGULAR RHYTHM, RRR, +S1, +S2 - GI/Abdominal Exam GI & Abdominal Exam: Soft, Normal Bowel Sounds. absent: Tenderness - Extremities Exam Extremities Exam: absent: Pedal Edema, 2+ DP/ PT BL - Neurological Exam Neurological Exam: Alert, Awake Additional comments: Neurologically intact, Gross strength 5+ in UE and LE BL, Minimal UE resting tremor on exam; did not dissipate w/ activity/movement. No asterixis - Psychiatric Exam Psychiatric exam: Normal Affect, Normal Mood Assessment and Plan - Assessment and Plan (Free Text) Assessment: 57M w/ a PMH of EtOH abuse, HTN, HLD, CAD s/p stents, EtoH abuse found unconscious on sidewalk brought to ED and admitted to ICU for EtOH withdrawal, and Hyponatremia. Plan: Hyponatremia Most likely 2/2 potomania vs thiazide diuretic less likely Na+ 117 on arrival; Urine OSM 164L Pt's Na+ increased from 117 to 137 given desmopressin and D5W on 01/05 No IVF throughout day today Continue BMP Q4 Patient's sodium 36 hours after arrival: 133 EtOH withdrawal Has been admitted for previous withdrawal; denies seizure previously CIWA is still stable; pt. does not exhibit worsening clinical symptoms of withdrawal during evaluation Continue Ativan 2mg PRN Stopped Ativan schd Stopped Librium SCHD HTN Continues to be elevated throughout night and morning, Consider restarting home HCTZ 25 QD if uncontrolled Start home Amlodipine 10 QD, Continue home Valsartan 320 HLD Continue home Lipitor 20QD Paroxysmal Afib Metoprolol 50 BID CAD s/p Stents ASA 81 QD Lipitor 20 GI/ DVT prophylaxis: Protonix / Lovenox Patient seen & examined, case discussed at length w/ attending physician Dr. Fátima Watts DO - PGY1 IM PROFESSOR OF BIOCHEMISTRY - PAGER [phone] <Swathi Shine - Last Filed: 01/07/18 12:33> Objective - Vital Signs/Intake and Output Vital Signs (last 24 hours): Temp Pulse Resp BP Pulse Ox 98 F 87 26 H 149/84 100 01/07/18 09:04 01/07/18 09:07 01/06/18 12:01 01/07/18 09:08 01/07/18 08:59 Intake and Output: 01/07/18 01/07/18 06:59 18:59 Intake Total 3200 Output Total 5625 Balance -2425 - Labs Labs: 01/07/18 06:00 01/07/18 06:00 PT 11.4 SECONDS (9.4-12.5) 01/04/18 16:51 INR 1.00 (0.93-1.08) 01/04/18 16:51 APTT 31.1 Seconds (25.1-36.5) 01/04/18 16:51 Attending/Attestation - Attestation I have personally seen and examined this patient.: Yes I have fully participated in the care of the patient.: Yes I have reviewed all pertinent clinical information, including history, physical exam and plan: Yes Notes (Text): 01/07/18 12:33 Medical record note made by the resident after discussion with my direction and input after the patient was personally seen and examined by me. I have reviewed the chart and agree that the record accurately reflects by personal performance of the history, physical exam, data review, and medical decision-making, in the course for the patient. I have also personally directed the plan of care. 57 year old male with PMH of CAD, SP cardiac stent, alcohol abuse, depression, HTN, dyslipidemia and Paroxysmal AF not on anticoagulation due to noncompliance and fall risk, is admitted with alcohol intoxication and hyponatremia NA 117. Hyponatremia is resolved. Alcohol withdrawal, Continue monitoring with CIWA. Heart rate is controlled.Patient is not on anticoagulation due to ongoing alcohol abuse. Management plan was discussed in detail with patient. Education was provided.
[2018-01-06 14:42] VITALS: RESP 26
--- NOTE | 2018-01-06 23:37 | CP.PCM.PN ---
Subjective - Date & Time of Evaluation Date of Evaluation: 01/06/18 Time of Evaluation: 23:35 - Subjective Subjective: S:Seen at bed side for he complained of insomnia. Has no other complaints now. Denies chest pain, sob, headache etc. Pertinent medical record was reviewed. O: Last Vital Signs 3 Temp 98.1 F 01/06/18 11:30 Pulse 109 H 01/06/18 17:00 Resp 26 H 01/06/18 12:01 BP 148/88 01/06/18 20:00 Pulse Ox 97 01/06/18 20:00 Awake , alert, not in distress. LUNGS:Normal breathing pattern. NEURO: Speech normal. A:Insomnia. P:Ambien 5 mg PO x 1. Objective - Vital Signs/Intake and Output Vital Signs (last 24 hours): Temp Pulse Resp BP Pulse Ox 98.1 F 109 H 26 H 148/88 97 01/06/18 11:30 01/06/18 17:00 01/06/18 12:01 01/06/18 20:00 01/06/18 20:00 Intake and Output: 01/06/1818 18:59 06:59 Intake Total 700 Output Total 3100 Balance -2400 - Medications Medications: Current Medications Amlodipine Besylate (Norvasc) 10 mg PO DAILY [facility] Last Admin: 01/06/18 09:29 Dose: 10 mg Atorvastatin Calcium (Lipitor) 20 mg PO DIN [facility] Last Admin: 01/06/18 17:00 Dose: 20 mg Enoxaparin Sodium (Lovenox) 40 mg SC DAILY [facility] PRN Reason: Protocol Last Admin: 01/06/18 09:30 Dose: 40 mg Folic Acid (Folic Acid) 1 mg PO DAILY [facility] Last Admin: 01/06/18 09:29 Dose: 1 mg Lorazepam (Ativan) 2 mg IVP Q4 PRN; Protocol PRN Reason: Agitation Last Admin: 01/06/18 04:29 Dose: 2 mg Metoprolol Tartrate (Lopressor) 50 mg PO BID [facility] Last Admin: 01/06/18 17:00 Dose: 50 mg Multivitamins/Minerals (Therapeutic-M Tab) 1 tab PO DAILY [facility] Last Admin: 01/06/18 09:29 Dose: 1 tab Ondansetron HCl (Zofran Inj) 4 mg IVP Q4H PRN PRN Reason: Nausea/Vomiting Pantoprazole Sodium (Protonix Ec Tab) 40 mg PO 0600 [facility] Last Admin: 01/06/18 06:55 Dose: 40 mg Thiamine HCl (Vitamin B1 Tab) 100 mg PO DAILY [facility] Last Admin: 01/06/18 09:29 Dose: 100 mg Valsartan (Diovan) 320 mg PO DAILY [facility] Last Admin: 01/06/18 14:46 Dose: 320 mg - Labs Labs: 01/06/18 04:00 01/06/18 07:50 PT 11.4 SECONDS (9.4-12.5) 01/04/18 16:51 INR 1.00 (0.93-1.08) 01/04/18 16:51 APTT 31.1 Seconds (25.1-36.5) 01/04/18 16:51
[2018-01-07] MEDS: Pantoprazole 40 mg EC Tab PO SCH (05:07)
--- NOTE | 2018-01-07 05:33 | CP.PCM.DIS ---
<Can Watts - Last Filed: 01/07/18 18:42> Provider - Provider Date of Admission: 01/04/18 19:22 Attending physician: Swathi Shine MD Primary care physician: Dr. Victor Consults: Nephrology - [facility] ICU - Dr. Lowell Coreas Time Spent in preparation of Discharge (in minutes): 40 Diagnosis - Discharge Diagnosis (1) Hyponatremia Status: Acute Priority: High (2) Alcohol withdrawal Status: Acute Priority: High (3) Hypocalcemia Status: Acute Priority: Medium (4) Hypertension Status: Chronic Priority: Medium (5) Paroxysmal atrial fibrillation Status: Chronic Priority: Medium (6) Hyperlipidemia Status: Chronic Priority: Low Hospital Course - Lab Results Lab Results: Micro Results 01/05/18 00:10 Nose MRSA Culture (Admit) - Final MRSA NOT DETECTED Most Recent Lab Values WBC 4.8 10^3/ul (4.5-11.0) D 01/06/18 04:00 RBC 3.98 10^6/uL (3.5-6.1) 01/06/18 04:00 Hgb 12.5 g/dL (14.0-18.0) L 01/06/18 04:00 Hct 35.8 % (42.0-52.0) L 01/06/18 04:00 MCV 89.9 fl (80.0-105.0) 01/06/18 04:00 MCH 31.4 pg (25.0-35.0) 01/06/18 04:00 MCHC 34.9 g/dl (31.0-37.0) 01/06/18 04:00 RDW 13.7 % (11.5-14.5) 01/06/18 04:00 Plt Count 270 10^3/uL (120.0-450.0) 01/06/18 04:00 MPV 9.6 fl (7.0-11.0) 01/06/18 04:00 Gran % 51.8 % (50.0-68.0) 01/06/18 04:00 Lymph % (Auto) 29.9 % (22.0-35.0) 01/06/18 04:00 Izard % (Auto) 17.1 % (1.0-6.0) H 01/06/18 04:00 Eos % (Auto) 0.6 % (1.5-5.0) L 01/06/18 04:00 Baso % (Auto) 0.6 % (0.0-3.0) 01/06/18 04:00 Gran # 2.46 (1.4-6.5) 01/06/18 04:00 Lymph # (Auto) 1.4 (1.2-3.4) 01/06/18 04:00 Izard # (Auto) 0.8 (0.1-0.6) H 01/06/18 04:00 Eos # (Auto) 0.0 (0.0-0.7) 01/06/18 04:00 Baso # (Auto) 0.03 K/mm3 (0.0-2.0) 01/06/18 04:00 PT 11.4 SECONDS (9.4-12.5) 01/04/18 16:51 INR 1.00 (0.93-1.08) 01/04/18 16:51 APTT 31.1 Seconds (25.1-36.5) 01/04/18 16:51 Sodium 133 mmol/L (132-148) 01/06/18 07:50 Potassium 4.1 mmol/L (3.6-5.0) 01/06/18 07:50 Chloride 97 mmol/L (98-107) L 01/06/18 07:50 Carbon Dioxide 28 mmol/L (21-33) 01/06/18 07:50 Anion Gap 12 (10-20) 01/06/18 07:50 BUN 8 mg/dL (7-21) 01/06/18 07:50 Creatinine 0.7 mg/dl (0.8-1.5) L 01/06/18 07:50 Est GFR ( Amer) > 60 01/06/18 07:50 Est GFR (Non-Af Amer) > 60 01/06/18 07:50 POC Glucose (mg/dL) 90 mg/dL (65-110) 01/06/18 16:33 Random Glucose 95 mg/dL (70-110) 01/06/18 07:50 Serum Osmolality 326 mosm/kg (272-300) H 01/04/18 19:52 Uric Acid 3.8 mg/dL (3.5-8.5) 01/04/18 19:52 Calcium 8.8 mg/dL (8.4-10.5) 01/06/18 07:50 Phosphorus 2.7 mg/dL (2.5-4.5) 01/05/18 07:27 Magnesium 1.9 mg/dL (1.7-2.2) 01/05/18 08:30 Total Bilirubin 0.9 mg/dL (0.2-1.3) 01/06/18 04:00 AST 88 U/L (17-59) H 01/06/18 04:00 ALT 52 U/L (7-56) 01/06/18 04:00 Alkaline Phosphatase 77 U/L (38-126) 01/06/18 04:00 Total Creatine Kinase 475 U/L (35-230) H 01/04/18 19:52 CK-MB (CK-2) 5.1 ng/mL (0.0-3.6) H 01/04/18 19:52 CK-MB (CK-2) % 1.1 % (2.5-3.0) L 01/04/18 19:52 Total Protein 7.0 g/dL (5.8-8.3) 01/06/18 04:00 Albumin 4.0 g/dL (3.0-4.8) 01/06/18 04:00 Globulin 3.0 gm/dL 01/06/18 04:00 Albumin/Globulin Ratio 1.3 (1.1-1.8) 01/06/18 04:00 Triglycerides 127 mg/dL (35-160) 01/04/18 19:52 Cholesterol 152 mg/dL (130-200) 01/04/18 19:52 LDL Cholesterol Direct 49 mg/dL (0-129) 01/04/18 19:52 HDL Cholesterol 81 mg/dL (29-60) H 01/04/18 19:52 Lipase 284 U/L (23-300) 01/04/18 16:51 25-OH Vitamin D Total 36.6 NG/ML (30.0-100.0) 01/04/18 19:52 TSH 3rd Generation 0.89 mIU/mL (0.46-4.68) 01/04/18 19:52 PTH Intact Whole Molec 86 pg/mL (14-64) H 01/04/18 19:52 Urine Color Colorless (YELLOW) 01/04/18 20:25 Urine Appearance Clear (CLEAR) 01/04/18 20:25 Urine pH 6.5 (4.7-8.0) 01/04/18 20:25 Ur Specific [place] <= 1.005 (1.005-1.035) 01/04/18 20:25 Urine Protein Negative mg/dL (<30 mg/dL) 01/04/18 20:25 Urine Glucose (UA) Negative mg/dL (NEGATIVE) 01/04/18 20:25 Urine Ketones Negative mg/dL (NEGATIVE) 01/04/18 20:25 Urine Blood Negative (NEGATIVE) 01/04/18 20:25 Urine Nitrate Negative (NEGATIVE) 01/04/18 20:25 Urine Bilirubin Negative (NEGATIVE) 01/04/18 20:25 Urine Urobilinogen 0.2 E.U./dL (<1 E.U./dL) 01/04/18 20:25 Ur Leukocyte Esterase Negative Shahzad/uL (NEGATIVE) 01/04/18 20:25 Urine Osmolality 362 mosm/kg (300-1000) 01/05/18 18:58 Ur Random Sodium 6 meq/L 01/05/18 18:58 Ur Random Potassium 12.3 meq/L 01/04/18 22:20 Alcohol, Quantitative 360 mg/dL (0-10) H* 01/04/18 16:51 - Hospital Course Hospital Course: Can Watts DO - PGY1 IM [employer] - Discharge Summary Pt. is a 57 M w/ a PMH of HTN, CAD s/p stent, Afib, depression, and hx EtOH abuse who [place] [facility]04 [place]. Patient was reported to be found lying on side walk prior to admission unclear if he had any trauma to his head at the time. During evaluation in ED he was found to have significant hyponatremia and was subsequently admitted to ICU for hyponatremia monitoring and EtOH withdrawal. CT of the head performed on admission was negative for intracranial pathology. CXR in ED read as no active cardiopulmonary disease, and EKG in ED was read as SR w/ 1st deg AV block. Incidentally, patient was found to be hypo calcemic as well; has improved upon discharge. Initially, Sodium was mointored throughout the day on 01/04-11 with NS ; change of 117-137 was noted during early treatment; subsequently requiring desmopressin and D5W. Patient remained on CIWA protocol and never exhibited major signs of withdrawal such delirium or hallucinations. CIWA score remained stable throughout stay, most recent score prior to discharge was 0. Patient was seen and examined this AM; Patient has no complaints this AM, and his vitals are stable. Patient denies any ZHANG, Focal weakness, CP, Palp, SOB, Cough, Abd pain, N/V/D/C, hematuria, dysuria. Patient's tremors are almost unremarkable on exam relative to prior examinations. No other issues reported by nursing. Patient is stable and medically optimized for discharge at this time with the following discharge instructions provided: 1). Monitor signs and symptoms of low sodium and calcium such as : a). Fatigue b). nausea and vomiting c). diarrhea and constipation d). seizures e).fast heart rate / palpitations f). muscle cramping g). irritability h). numbness and tingling i). confusion 2). If you experience any of the symptoms above go to the emergency room right away. 3). Try to wean off from drinking beer slowly. 4). Wean off from smoking. 5). Follow up with your primary doctor in 7 days 6). Please attend alcoholic rehabilitation program upon discharge. 7). Stop taking the following medications: Hydrochlorothiazide 8). Start taking: Norvasc 10mg QD, Lipitor 20 DIN, Folic acid 1mg QD, Metoprolol 50mg BID, Multivitamin 1tab PO, Thiamine 100mg QD, Diovan 320mg PO QD , Sertraline 100mg QD - Date & Time of H&P Date of H&P: 01/07/18 Time of H&P: 12:13 Discharge Exam - Head Exam Head Exam: ATRAUMATIC, NORMAL INSPECTION, NORMOCEPHALIC - Eye Exam Eye Exam: EOMI, PERRL. absent: Scleral icterus - ENT Exam ENT Exam: Mucous Membranes Dry Additional comments: Poor dentition - Respiratory Exam Respiratory Exam: Clear to PA & Lateral, NORMAL BREATHING PATTERN. absent: Wheezes, Respiratory Distress - Cardiovascular Exam Cardiovascular Exam: RRR, +S1, +S2. absent: Systolic Murmur - GI/Abdominal Exam GI & Abdominal Exam: Soft, Unremarkable. absent: Tenderness - Extremities Exam Extremities exam: pedal pulses present (2+ DP/TP BL) - Back Exam Back exam: absent: CVA tenderness (L), CVA tenderness (R) - Neurological Exam Neurological exam: Alert, CN II-XII Intact, Oriented x3 Additional comments: minimal/ mild tremors appreciated in UE BL - Psychiatric Exam Psychiatric exam: Normal Affect, Normal Mood - Skin Skin Exam: Dry, Intact, Warm Discharge Plan - Discharge Medications Prescriptions: Folic Acid 1 mg PO DAILY #14 tab Multimineral/Multivitamin [Therapeutic-M Tab] 1 tab PO DAILY #14 tab Valsartan [Diovan] 320 mg PO DAILY #14 tab - Follow Up Plan Condition: STABLE Disposition: HOME/ ROUTINE Patient education suggested?: Yes Instructions: Quitting Smoking for Older Adults, Smoking: Not Just Harmful to Your Lungs and Heart, Alcohol Abuse and Alcoholism (DC), Hypocalcemia (DC), Drugs to Help You Stop Using Tobacco, Hyponatremia (DC), Hyponatremia (GEN), Alcohol Intoxication (DC), Hypertension (DC), Hypertension (GEN), Alcohol Use Disorder (DC) Additional Instructions: 1). Monitor signs and symptoms of low sodium and calcium such as : a). Fatigue b). nausea and vomiting c). diarrhea and constipation d). seizures e).fast heart rate / palpitations f). muscle cramping g). irritability h). numbness and tingling i). confusion 2). If you experience any of the symptoms above go to the emergency room right away. 3). Refrain from consuming alcohol 4). Stop Smoking 5). Follow up with your primary doctor in 7 days 6). Please attend alcoholic rehabilitation program upon discharge. 7). Stop taking the following medications: Hydrochlorothiazide 8). Start/Continue taking: Norvasc 10mg QD, Lipitor 20 DIN, Folic acid 1mg QD, Metoprolol 50mg BID, Multivitamin 1tab PO, Thiamine 100mg QD, Diovan 320mg PO QD , Sertraline 100mg QD <Swathi Shine - Last Filed: 01/08/18 10:30> Provider - Provider Date of Admission: 01/04/18 19:22 Attending physician: Swathi Shine MD Hospital Course - Lab Results Lab Results: Micro Results 01/05/18 00:10 Nose MRSA Culture (Admit) - Final MRSA NOT DETECTED Most Recent Lab Values WBC 4.9 10^3/ul (4.5-11.0) 01/07/18 06:00 RBC 4.03 10^6/uL (3.5-6.1) 01/07/18 06:00 Hgb 12.6 g/dL (14.0-18.0) L 01/07/18 06:00 Hct 37.0 % (42.0-52.0) L 01/07/18 06:00 MCV 91.8 fl (80.0-105.0) 01/07/18 06:00 MCH 31.3 pg (25.0-35.0) 01/07/18 06:00 MCHC 34.1 g/dl (31.0-37.0) 01/07/18 06:00 RDW 13.9 % (11.5-14.5) 01/07/18 06:00 Plt Count 249 10^3/uL (120.0-450.0) 01/07/18 06:00 MPV 10.0 fl (7.0-11.0) 01/07/18 06:00 Gran % 50.1 % (50.0-68.0) 01/07/18 06:00 Lymph % (Auto) 34.3 % (22.0-35.0) 01/07/18 06:00 Izard % (Auto) 13.6 % (1.0-6.0) H 01/07/18 06:00 Eos % (Auto) 1.0 % (1.5-5.0) L 01/07/18 06:00 Baso % (Auto) 1.0 % (0.0-3.0) 01/07/18 06:00 Gran # 2.47 (1.4-6.5) 01/07/18 06:00 Lymph # (Auto) 1.7 (1.2-3.4) 01/07/18 06:00 Izard # (Auto) 0.7 (0.1-0.6) H 01/07/18 06:00 Eos # (Auto) 0.1 (0.0-0.7) 01/07/18 06:00 Baso # (Auto) 0.05 K/mm3 (0.0-2.0) 01/07/18 06:00 PT 11.4 SECONDS (9.4-12.5) 01/04/18 16:51 INR 1.00 (0.93-1.08) 01/04/18 16:51 APTT 31.1 Seconds (25.1-36.5) 01/04/18 16:51 Sodium 136 mmol/L (132-148) 01/07/18 06:00 Potassium 4.1 mmol/L (3.6-5.0) 01/07/18 06:00 Chloride 100 mmol/L (98-107) 01/07/18 06:00 Carbon Dioxide 27 mmol/L (21-33) 01/07/18 06:00 Anion Gap 13 (10-20) 01/07/18 06:00 BUN 10 mg/dL (7-21) 01/07/18 06:00 Creatinine 0.7 mg/dl (0.8-1.5) L 01/07/18 06:00 Est GFR ( Amer) > 60 01/07/18 06:00 Est GFR (Non-Af Amer) > 60 01/07/18 06:00 POC Glucose (mg/dL) 90 mg/dL (65-110) 01/06/18 16:33 Random Glucose 88 mg/dL (70-110) 01/07/18 06:00 Serum Osmolality 326 mosm/kg (272-300) H 01/04/18 19:52 Uric Acid 3.8 mg/dL (3.5-8.5) 01/04/18 19:52 Calcium 9.1 mg/dL (8.4-10.5) 01/07/18 06:00 Phosphorus 2.7 mg/dL (2.5-4.5) 01/05/18 07:27 Magnesium 1.9 mg/dL (1.7-2.2) 01/05/18 08:30 Total Bilirubin 0.9 mg/dL (0.2-1.3) 01/07/18 06:00 AST 69 U/L (17-59) H D 01/07/18 06:00 ALT 59 U/L (7-56) H 01/07/18 06:00 Alkaline Phosphatase 79 U/L (38-126) 01/07/18 06:00 Total Creatine Kinase 475 U/L (35-230) H 01/04/18 19:52 CK-MB (CK-2) 5.1 ng/mL (0.0-3.6) H 01/04/18 19:52 CK-MB (CK-2) % 1.1 % (2.5-3.0) L 01/04/18 19:52 Total Protein 7.4 g/dL (5.8-8.3) 01/07/18 06:00 Albumin 4.2 g/dL (3.0-4.8) 01/07/18 06:00 Globulin 3.2 gm/dL 01/07/18 06:00 Albumin/Globulin Ratio 1.3 (1.1-1.8) 01/07/18 06:00 Triglycerides 127 mg/dL (35-160) 01/04/18 19:52 Cholesterol 152 mg/dL (130-200) 01/04/18 19:52 LDL Cholesterol Direct 49 mg/dL (0-129) 01/04/18 19:52 HDL Cholesterol 81 mg/dL (29-60) H 01/04/18 19:52 Lipase 284 U/L (23-300) 01/04/18 16:51 25-OH Vitamin D Total 36.6 NG/ML (30.0-100.0) 01/04/18 19:52 TSH 3rd Generation 0.89 mIU/mL (0.46-4.68) 01/04/18 19:52 PTH Intact Whole Molec 86 pg/mL (14-64) H 01/04/18 19:52 Urine Color Colorless (YELLOW) 01/04/18 20:25 Urine Appearance Clear (CLEAR) 01/04/18 20:25 Urine pH 6.5 (4.7-8.0) 01/04/18 20:25 Ur Specific [place] <= 1.005 (1.005-1.035) 01/04/18 20:25 Urine Protein Negative mg/dL (<30 mg/dL) 01/04/18 20:25 Urine Glucose (UA) Negative mg/dL (NEGATIVE) 01/04/18 20:25 Urine Ketones Negative mg/dL (NEGATIVE) 01/04/18 20:25 Urine Blood Negative (NEGATIVE) 01/04/18 20:25 Urine Nitrate Negative (NEGATIVE) 01/04/18 20:25 Urine Bilirubin Negative (NEGATIVE) 01/04/18 20:25 Urine Urobilinogen 0.2 E.U./dL (<1 E.U./dL) 01/04/18 20:25 Ur Leukocyte Esterase Negative Shahzad/uL (NEGATIVE) 01/04/18 20:25 Urine Osmolality 362 mosm/kg (300-1000) 01/05/18 18:58 Ur Random Sodium 6 meq/L 01/05/18 18:58 Ur Random Potassium 12.3 meq/L 01/04/18 22:20 Alcohol, Quantitative 360 mg/dL (0-10) H* 01/04/18 16:51 Attending/Attestation - Attestation I have personally seen and examined this patient.: Yes I have fully participated in the care of the patient.: Yes I have reviewed all pertinent clinical information, including history, physical exam and plan: Yes Notes (Text): 01/08/18 10:28 Medical record note made by the resident after discussion with my direction and input after the patient was personally seen and examined by me. I have reviewed the chart and agree that the record accurately reflects by personal performance of the history, physical exam, data review, and medical decision-making, in the course for the patient. I have also personally directed the plan of care. 57 year old male with PMH of CAD, SP cardiac stent, alcohol abuse, depression, HTN, dyslipidemia and Paroxysmal AF not on anticoagulation due to noncompliance and fall risk, was admitted with alcohol intoxication and hyponatremia NA 117. Hyponatremia is resolved.Alcohol withdrawal, has improved, no sign of alcohol withdrawal at the time of discharge Heart rate is controlled.Patient is not on anticoagulation due to ongoing alcohol abuse. Issue of ongoing alcohol abuse was discussed in detail with the patient. Prognosis is guarded due to ongoing alcohol abuse and non compliance . Management plan was discussed in detail with patient. Education was provided.
[2018-01-07 06:39] LABS: BASO # 0.05 K/mm3 (0.0-2.0); EOS # 0.1 (0.0-0.7); GRAN # 2.47 (1.4-6.5); GRAN % 50.1 % (50.0-68.0); HEMOGLOBIN 12.6 g/dL (14.0-18.0); LYMPH # 1.7 (1.2-3.4); LYMPH % 34.3 % (22.0-35.0); MEAN CELL VOLUME 91.8 fl (80.0-105.0); MEAN CORPUSCULAR HEMOGLOBIN 31.3 pg (25.0-35.0); MEAN CORPUSCULAR HGB CONC 34.1 g/dl (31.0-37.0); MONO # 0.7 (0.1-0.6); MONO % 13.6 % (1.0-6.0); RBC 4.03 10^6/uL (3.5-6.1); RED CELL DISTRIBUTION WIDTH 13.9 % (11.5-14.5); WHITE BLOOD COUNT 4.9 10^3/ul (4.5-11.0)
[2018-01-07 06:56] LABS: ALB/GLOB RATIO 1.3 (1.1-1.8); ALBUMIN 4.2 g/dL (3.0-4.8); ALT/SGPT 59 U/L (7-56); AST/SGOT 69 U/L (17-59); BLOOD UREA NITROGEN 10 mg/dL (7-21); CALCIUM 9.1 mg/dL (8.4-10.5); GFR AFRICAN-AMERICAN > 60; GFR NON-AFRICAN AMERICAN > 60
[2018-01-07 09:04] VITALS: TEMP 98; O2SAT 100
[2018-01-07] MEDS: Enoxaparin 40 mg Syringe SC SCH (09:07)
[2018-01-07 09:09] VITALS: BP 149/84; PULSE 87
[2018-01-07] MEDS: Multivitamin With Minerals Tab PO SCH (09:09)
--- NOTE | 2018-01-07 10:03 | CP.PCM.PN ---
Subjective - Date & Time of Evaluation Date of Evaluation: 01/07/18 Time of Evaluation: 09:45 - Subjective Subjective: Francisco Rosario PGY-1 [facility] Progress Note Patient seen and examined in ICU room. Patient reports feeling tired secondary to minimal sleep last night (30 minutes); received Ambien which patient reports did not help. Patient denies auditory or visual hallucinations. Patient denies nausea/vomiting/constipation/diarrhea. Patient reports healthy appetite and good urine output without urinary symptoms. Patient denies chest pain, shortness of breath, and epigastric pain. Objective - Vital Signs/Intake and Output Vital Signs (last 24 hours): Temp Pulse Resp BP Pulse Ox 98 F 87 26 H 149/84 100 01/07/18 09:04 01/07/18 09:07 01/06/18 12:01 01/07/18 09:08 01/07/18 08:59 Intake and Output: 01/07/18 01/07/18 06:59 18:59 Intake Total 3200 Output Total 5625 Balance -2425 - Medications Medications: Current Medications Amlodipine Besylate (Norvasc) 10 mg PO DAILY [facility] Last Admin: 01/07/18 09:08 Dose: 10 mg Atorvastatin Calcium (Lipitor) 20 mg PO DIN [facility] Last Admin: 01/06/18 17:00 Dose: 20 mg Enoxaparin Sodium (Lovenox) 40 mg SC DAILY [facility] PRN Reason: Protocol Last Admin: 01/07/18 09:07 Dose: 40 mg Folic Acid (Folic Acid) 1 mg PO DAILY [facility] Last Admin: 01/07/18 09:08 Dose: 1 mg Lorazepam (Ativan) 2 mg IVP Q4 PRN; Protocol PRN Reason: Agitation Last Admin: 01/06/18 04:29 Dose: 2 mg Metoprolol Tartrate (Lopressor) 50 mg PO BID [facility] Last Admin: 01/07/18 09:07 Dose: 50 mg Multivitamins/Minerals (Therapeutic-M Tab) 1 tab PO DAILY [facility] Last Admin: 01/07/18 09:09 Dose: 1 tab Ondansetron HCl (Zofran Inj) 4 mg IVP Q4H PRN PRN Reason: Nausea/Vomiting Pantoprazole Sodium (Protonix Ec Tab) 40 mg PO 0600 [facility] Last Admin: 01/07/18 05:07 Dose: 40 mg Thiamine HCl (Vitamin B1 Tab) 100 mg PO DAILY [facility] Last Admin: 01/07/18 09:08 Dose: 100 mg Valsartan (Diovan) 320 mg PO DAILY [facility] Last Admin: 01/07/18 09:08 Dose: 320 mg - Labs Labs: 01/07/18 06:00 01/07/18 06:00 PT 11.4 SECONDS (9.4-12.5) 01/04/18 16:51 INR 1.00 (0.93-1.08) 01/04/18 16:51 APTT 31.1 Seconds (25.1-36.5) 01/04/18 16:51 - Additional Findings Additional findings: Additional findings: - Constitutional Appears: No Acute Distress, No fevers, No chills - Head Exam Head Exam: ATRAUMATIC, NORMAL INSPECTION, NORMOCEPHALIC - Eye Exam Eye Exam: EOMI, Normal appearance - Respiratory Exam Respiratory Exam: Clear to Ausculation Bilateral, NORMAL BREATHING PATTERN - Cardiovascular Exam Cardiovascular Exam: REGULAR RHYTHM, +S1, +S2. absent: JVD, Rubs - GI/Abdominal Exam GI & Abdominal Exam: Soft, Normal Bowel Sounds. absent: Distended - Extremities Exam Extremities Exam: Normal Inspection. absent: Pedal Edema - Neurological Exam Neurological Exam: Alert, Oriented x3; normal mood - Psychiatric Exam Additional comments: negative for A/V hallucinations Assessment and Plan - Assessment and Plan (Free Text) Assessment: 57 yo M w/ pmh of htn, CAD s/p remote PCI, ETOH abuse, presented to ED today with 3-4 days of vomiting for alcohol detox; nephrology being consulted for severe hyponatremia. Plan: Hyponatremia -On admission patient Na 117; was started on NS 1L bolus; Na improved to 121 -Patient was given IVF at 100/hr then reduced to 60/hr then dc'ed; -Given Ddavp and 5% dextrose yesterday and stopped; -Na 132 today -Ordered BMP q4 hours -No neurologic symptoms -Patient was most likely volume depleted secondary to increased diuresis and vomiting prior to admission -Counselled on alcohol cessation; -Continue to monitor; Rhabdomyolysis -CK at admission was 475; relatively mild -IVF dc'ed in setting of hyponatremia -possible due to trauma before admission Hypocalcemia (Resolved) -Possible sequestration inside cells secondary to Rhabdo; -PTH elevated on 7/10 (possible secondary to low calcium levels on admission) -25-OH vit D levels - 36.6 -Phos- 2.7 -Mag- 1.9 Hypertension -Held at admission due to low blood pressures on admission secondary to volume depletion likely -Restarted BP medications; Metoprolol 50mg bid, Amlodipine 10mg daily; Valsartan 320mg daily -BP 149/84 with 3 medications (controlled) Medical management discussed with director career, Dr. Pradhan.
== END 2018-01-07 12:09 | disposition home or self-care (01) | DRG 641 ==
LOC: ED 14:31 → ERH 19:22 → CCU 01-05 00:06
PROVIDERS: ADMIT Internal Medicine; ATTEND Internal Medicine
DX: E87.1 Hypo-osmolality and hyponatremia (principal); M62.82 Rhabdomyolysis; F10.239 Alcohol dependence with withdrawal, unspecified; E83.51 Hypocalcemia; I11.0 Hypertensive heart disease with heart failure; I50.9 Heart failure, unspecified; I25.10 Atherosclerotic heart disease of native coronary artery without angina pectoris; K59.00 Constipation, unspecified; I48.0 Paroxysmal atrial fibrillation; R56.9 Unspecified convulsions; E78.5 Hyperlipidemia, unspecified; E11.9 Type 2 diabetes mellitus without complications; G47.00 Insomnia, unspecified; I44.0 Atrioventricular block, first degree; Y90.8 Blood alcohol level of 240 mg/100 ml or more; F10.229 Alcohol dependence with intoxication, unspecified; F32.89 Other specified depressive episodes; Z79.899 Other long term (current) drug therapy; Z91.19 Patient's noncompliance with other medical treatment and regimen; Z95.5 Presence of coronary angioplasty implant and graft; Z91.81 History of falling

== ENCOUNTER 2018-02-20 09:15 | Emergency (ER) | payer MEDICAID, OTHER ==
[2018-02-20 09:16] VITALS: BMI 29.2
[2018-02-20 09:28] VITALS: RESP 18
[2018-02-20 09:47] LABS: BASO # 0.02 K/mm3 (0.0-2.0); BASO % 0.3 % (0.0-3.0); EOS % 0.3 % (1.5-5.0); GRAN # 3.49 (1.4-6.5); GRAN % 53.5 % (50.0-68.0); HEMOGLOBIN 13.5 g/dL (14.0-18.0); LYMPH # 2.5 (1.2-3.4); LYMPH % 38.1 % (22.0-35.0); MEAN CELL VOLUME 87.3 fl (80.0-105.0); MEAN CORPUSCULAR HEMOGLOBIN 31.8 pg (25.0-35.0); MEAN CORPUSCULAR HGB CONC 36.4 g/dl (31.0-37.0); MEAN PLATELET VOLUME 9.6 fl (7.0-11.0); MONO # 0.5 (0.1-0.6); MONO % 7.8 % (1.0-6.0); RBC 4.25 10^6/uL (3.5-6.1); RED CELL DISTRIBUTION WIDTH 13.3 % (11.5-14.5); WHITE BLOOD COUNT 6.5 10^3/ul (4.5-11.0)
[2018-02-20 09:57] LABS: ALB/GLOB RATIO 1.3 (1.1-1.8); ALBUMIN 4.4 g/dL (3.0-4.8); ALT/SGPT 34 U/L (7-56); AST/SGOT 74 U/L (17-59); BLOOD UREA NITROGEN 12 mg/dL (7-21); CALCIUM 8.2 mg/dL (8.4-10.5); GFR NON-AFRICAN AMERICAN > 60
[2018-02-20] MEDS ORDERED: Sodium Chloride 0.9% 1,000 ML IV STA (10:07)
--- NOTE | 2018-02-20 11:04 | ED PDOC ---
Arrival/HPI - General Chief Complaint: Alcohol Ingestion Time Seen by Provider: 02/20/18 09:23 Historian: Patient - History of Present Illness Narrative History of Present Illness (Text): 02/20/18 10:57 57 yo male who is a known alcoholic the the ED present to ED stating he drank alcohol earlier and didn't feel fine so he came to ED. He denies any focal chest pain, SOB, dizziness, nausea, vomiting, abdominal pain, nausea, vomiting, any other complaint. Past Medical History - Provider Review Nursing Documentation Reviewed: Yes - Infectious Disease Hx of Infectious Diseases: None - Tetanus Immunization Tetanus Immunization: Unknown - Cardiac Hx Cardiac Disorders: Yes Hx Congestive Heart Failure: Yes (Paroxymal Afib) Hx Hypertension: Yes - Pulmonary Hx Respiratory Disorders: No - Neurological Hx Neurological Disorder: No - HEENT Hx HEENT Disorder: No - Renal Hx Renal Disorder: No - Endocrine/Metabolic Hx Endocrine Disorders: No - Hematological/Oncological Hx Blood Disorders: No - Integumentary Hx Dermatological Disorder: No - Musculoskeletal/Rheumatological Hx Musculoskeletal Disorders: No - Gastrointestinal Hx Gastrointestinal Disorders: No - Genitourinary/Gynecological Hx Genitourinary Disorders: No - Psychiatric Hx Psychophysiologic Disorder: Yes Hx Depression: Yes Hx Substance Use: No Other/Comment: ETOH ABUSE - Past Surgical History Past Surgical History: No Previous - Surgical History Hx Cardiac Catheterization: Yes (x1) Hx Coronary Stent: Yes - Anesthesia Hx Anesthesia: Yes Hx Anesthesia Reactions: No Hx Malignant Hyperthermia: No - Suicidal Assessment Feels Threatened In Home Enviroment: No Family/Social History - Physician Review Nursing Documentation Reviewed: Yes Family/Social History: Unknown Family HX Smoking Status: Never Smoked Hx Alcohol Use: Yes (12-14 cans of beer per day) Amount per day: 5 Hx Substance Use: No Hx Substance Use Treatment: No Allergies/Home Meds Allergies/Adverse Reactions: Allergies No Known Allergies Allergy (Verified 02/20/18 09:19) Home Medications: Home Meds Medication Instructions Recorded Confirmed Unobtainable 02/20/18 02/20/18 Review of Systems - Physician Review All systems were reviewed & negative as marked: Yes - Review of Systems Systems not reviewed;Unavailable: Intoxicated Constitutional: Normal Eyes: Normal ENT: Normal Respiratory: Normal Cardiovascular: Normal Gastrointestinal: Normal Genitourinary Male: Normal Musculoskeletal: Normal Skin: Normal Neurological: Normal Endocrine: Normal Hemo/Lymphatic: Normal Psychiatric: Normal Physical Exam Vital Signs Reviewed: Yes Vital Signs Temp Pulse Resp BP Pulse Ox 02/20/18 13:24 97.9 F 81 18 122/69 02/20/18 12:23 75 18 121/67 96 02/20/18 10:46 98 F 73 18 132/77 99 02/20/18 09:27 68 18 138/69 99 Temperature: Afebrile Blood Pressure: Normal Pulse: Regular Respiratory Rate: Normal Appearance: Positive for: Well-Appearing, Non-Toxic, Comfortable Pain Distress: None Mental Status: Positive for: Alert and Oriented X 3 Finger Stick Blood Glucose: 69 - Systems Exam Head: Present: Atraumatic, Normocephalic Pupils: Present: PERRL Extroacular Muscles: Present: EOMI Conjunctiva: Present: Normal Mouth: Present: Moist Mucous Membranes Neck: Present: Normal Range of Motion Respiratory/Chest: Present: Clear to Auscultation, Good Air Exchange. No: Respiratory Distress, Accessory Muscle Use Cardiovascular: Present: Regular Rate and Rhythm, Normal S1, S2. No: Murmurs Abdomen: No: Tenderness, Distention, Peritoneal Signs Back: Present: Normal Inspection Upper Extremity: Present: Normal Inspection. No: Cyanosis, Edema Lower Extremity: Present: Normal Inspection. No: Edema Neurological: Present: GCS=15, CN II-XII Intact, Speech Normal Skin: Present: Warm, Dry, Normal Color. No: Rashes Psychiatric: Present: Alert, Oriented x 3, Normal Insight, Normal Concentration Medical Decision Making ED Course and Treatment: 02/20/18 11:09 57yo male in ED for alcohol intoxication. Labs Cardiac monitoring. Will re evaluate for sobriety 02/20/18 20:19 On re evaluation pt was hemodynamically stable. Lab was noted with alcohol of 203. He was hyponatremic and was hydrated with 1L of NS. Pt was ambulatory with steady gait without help. He was AAO x3. He was DC home. - Lab Interpretations Lab Results: 02/20/18 08:15 02/20/18 08:15 Lab Results 02/20/18 09:20: POC Glucose (mg/dL) 69 02/20/18 08:15: Alcohol, Quantitative 203 H 02/20/18 08:15: Sodium 129 L, Potassium 3.3 L, Chloride 89 L, Carbon Dioxide 24 , Anion Gap 20, BUN 12, Creatinine 1.0, Est GFR ( Amer) > 60, Est GFR ( Non-Af Amer) > 60, Random Glucose 77, Calcium 8.2 L, Total Bilirubin 1.5 H, AST 74 H, ALT 34, Alkaline Phosphatase 81, Total Protein 7.7, Albumin 4.4, Globulin 3.3, Albumin/Globulin Ratio 1.3 02/20/18 08:15: WBC 6.5 D, RBC 4.25, Hgb 13.5 L, Hct 37.1 L, MCV 87.3 D, MCH 31.8, MCHC 36.4, RDW 13.3, Plt Count 240, MPV 9.6, Gran % 53.5, Lymph % (Auto) 38.1 H, [place] % (Auto) 7.8 H, Eos % (Auto) 0.3 L, Baso % (Auto) 0.3, Gran # 3.49 , Lymph # (Auto) 2.5, [place] # (Auto) 0.5, Eos # (Auto) 0.0, Baso # (Auto) 0.02 - Medication Orders Current Medication Orders: Discontinued Medications Sodium Chloride (Sodium Chloride 0.9%) 1,000 mls @ 999 mls/hr IV .Q1H1M STA Stop: 02/20/18 11:07 Last Admin: 02/20/18 10:16 Dose: 999 mls/hr eMAR Start Stop Document 02/20/18 10:16 EAR (Rec: 02/20/18 10:17 EAR [id number]) Intravenous Solution Start Date 02/20/18 Start Time 10:16 End Date 02/20/18 End time 11:20 Total Infusion Time 64 Disposition/Present on Arrival - Present on Arrival Any Indicators Present on Arrival: No History of DVT/PE: No History of Uncontrolled Diabetes: No Urinary Catheter: No History of Decub. Ulcer: No History Surgical Site Infection Following: None - Disposition Have Diagnosis and Disposition been Completed?: Yes Diagnosis: Alcohol intoxication, Hyponatremia Disposition: HOME/ ROUTINE Disposition Time: 12:55 Patient Plan: Discharge Condition: STABLE Discharge Instructions (ExitCare): Alcohol Abuse and Alcoholism (DC) Additional Instructions: Follow up with your doctor/clinic Join AA Return to ED for any new symptoms Referrals: Alcoholics Anonymous [Outside] - Follow up with primary Forms: [employer] ([place]an)
[2018-02-20 12:24] VITALS: O2SAT 96
[2018-02-20 13:25] VITALS: BP 122/69; PULSE 81; TEMP 97.9
== END 2018-02-20 13:23 | disposition home or self-care (01) ==
LOC: ED 09:15
DX: F10.129 Alcohol abuse with intoxication, unspecified (principal); E87.1 Hypo-osmolality and hyponatremia; I48.0 Paroxysmal atrial fibrillation; I10 Essential (primary) hypertension
CPT/HCPCS: 80053; 80320; 82948; 85025; 96360; 99284; J7030

== ENCOUNTER 2018-04-06 19:43 | Inpatient (IN) | payer MEDICAID, OTHER ==
--- NOTE | 2018-04-06 20:23 | ED PDOC ---
Arrival/HPI - General Chief Complaint: Shortness Of Breath Time Seen by Provider: 04/06/18 19:53 Historian: Patient - History of Present Illness Narrative History of Present Illness (Text): 04/06/18 20:20 Keanu Smyth is a 57 year old male, whose past medical history includes hypertension, CAD s/p stents, palpitations, alcohol abuse, and depression, who presents to the Emergency department requesting alcohol detox. Patient reports a history of chronic alcohol abuse and would like to stop drinking. Patient denies any fever, chills, chest pain, nausea, vomiting, urinary symptoms, back pain, neck pain, headache, dizziness, or any other complaints. Symptom Onset: Gradual Symptom Course: Unchanged Activities at Onset: Light Context: Home Past Medical History - Provider Review Nursing Documentation Reviewed: Yes - Infectious Disease Hx of Infectious Diseases: None - Tetanus Immunization Tetanus Immunization: Unknown - Cardiac Hx Cardiac Disorders: Yes Hx Congestive Heart Failure: Yes (Paroxymal Afib) Hx Hypertension: Yes - Pulmonary Hx Respiratory Disorders: No - Neurological Hx Neurological Disorder: No - HEENT Hx HEENT Disorder: No - Renal Hx Renal Disorder: No - Endocrine/Metabolic Hx Endocrine Disorders: No - Hematological/Oncological Hx Blood Disorders: No - Integumentary Hx Dermatological Disorder: No - Musculoskeletal/Rheumatological Hx Musculoskeletal Disorders: No - Gastrointestinal Hx Gastrointestinal Disorders: No - Genitourinary/Gynecological Hx Genitourinary Disorders: No - Psychiatric Hx Psychophysiologic Disorder: Yes Hx Depression: Yes Hx Substance Use: No Other/Comment: ETOH ABUSE - Past Surgical History Past Surgical History: No Previous - Surgical History Hx Cardiac Catheterization: Yes (x1) Hx Coronary Stent: Yes - Anesthesia Hx Anesthesia: Yes Hx Anesthesia Reactions: No Hx Malignant Hyperthermia: No - Suicidal Assessment Feels Threatened In Home Enviroment: No Family/Social History - Physician Review Nursing Documentation Reviewed: Yes Family/Social History: Unknown Family HX Smoking Status: Never Smoked Hx Alcohol Use: Yes (12-14 cans of beer per day) Amount per day: 5 Hx Substance Use: No Hx Substance Use Treatment: No Allergies/Home Meds Allergies/Adverse Reactions: Allergies No Known Allergies Allergy (Verified 04/06/18 19:54) Home Medications: Home Meds Medication Instructions Recorded Confirmed Unobtainable 02/20/18 02/20/18 Review of Systems - Physician Review All systems were reviewed & negative as marked: Yes - Review of Systems Constitutional: Normal. absent: Fevers Eyes: Normal ENT: Normal Respiratory: Normal. absent: SOB, Cough Cardiovascular: Normal. absent: Chest Pain Gastrointestinal: Normal. absent: Abdominal Pain, Diarrhea, Nausea, Vomiting Genitourinary Male: Normal. absent: Dysuria, Frequency, Hematuria, Urinary Output Changes Musculoskeletal: Normal. absent: Back Pain, Neck Pain Skin: Normal. absent: Rash Neurological: Normal. absent: Headache, Dizziness Endocrine: Normal Hemo/Lymphatic: Normal Psychiatric: Normal Physical Exam Vital Signs Reviewed: Yes Vital Signs Temp Pulse Resp BP Pulse Ox 04/06/18 20:20 98.3 F 04/06/18 19:58 99 H 22 145/79 99 Temperature: Afebrile Blood Pressure: Normal Pulse: Regular Respiratory Rate: Normal Appearance: Positive for: Well-Appearing, Non-Toxic, Comfortable Pain Distress: None Mental Status: Positive for: Alert and Oriented X 3 - Systems Exam Head: Present: Atraumatic, Normocephalic Pupils: Present: PERRL Extroacular Muscles: Present: EOMI Conjunctiva: Present: Normal Mouth: Present: Moist Mucous Membranes Neck: Present: Normal Range of Motion Respiratory/Chest: Present: Clear to Auscultation, Good Air Exchange. No: Respiratory Distress, Accessory Muscle Use Cardiovascular: Present: Regular Rate and Rhythm, Normal S1, S2. No: Murmurs Abdomen: No: Tenderness, Distention, Peritoneal Signs Back: Present: Normal Inspection Upper Extremity: Present: Normal Inspection. No: Cyanosis, Edema Lower Extremity: Present: Normal Inspection. No: Edema Neurological: Present: GCS=15, CN II-XII Intact, Speech Normal Skin: Present: Warm, Dry, Normal Color. No: Rashes Psychiatric: Present: Alert, Oriented x 3, Normal Insight, Normal Concentration Medical Decision Making ED Course and Treatment: 04/06/18 20:20 Impression: 57 year old male requesting alcohol detox. Plan: -- EKG -- Chest X-ray -- Labs, alcohol level -- Duoneb -- Reassess and disposition Progress Notes: Reviewed EKG, sinus rhythm at 96 bpm. 1st degree AV block. Non-specific intraventricular delay. 04/06/18 21:[address] Rodrigues, who is aware and agrees to evaluate pt for ICU admission. resident care coordinator notified. 04/06/18 22:[address] Rodrigues, present in the Emergency department to evaluate pt. Pt admitted to ICU for hyponatremia under the hospitalist service. - Lab Interpretations I have reviewed the lab results: Yes - EKG Interpretation Interpreted by ED Physician: Yes Type: 12 lead EKG - Scribe Statement The provider has reviewed the documentation as recorded by the Scribe Zahra Macdonald Provider Scribe Attestation: All medical record entries made by the Scribe were at my direction and personally dictated by me. I have reviewed the chart and agree that the record accurately reflects my personal performance of the history, physical exam, medical decision making, and the department course for this patient. I have also personally directed, reviewed, and agree with the discharge instructions and disposition. Disposition/Present on Arrival - Present on Arrival Any Indicators Present on Arrival: No History of DVT/PE: No History of Uncontrolled Diabetes: No Urinary Catheter: No History of Decub. Ulcer: No History Surgical Site Infection Following: None - Disposition Have Diagnosis and Disposition been Completed?: Yes Diagnosis: Alcohol abuse, Hyponatremia Disposition: HOSPITALIZED Disposition Time: 22:35 Condition: FAIR
[2018-04-06] MEDS: Albuterol-Ipratrop 3 mg / 0.5 (3 ml) UD IH SCH ×3 (20:37→21:00)
[2018-04-06 21:01] LABS: GRAN # 4.13 (1.4-6.5); GRAN % 72.6 % (50.0-68.0); HEMOGLOBIN 12.3 g/dL (14.0-18.0); LYMPH # 1.1 (1.2-3.4); LYMPH % 19.7 % (22.0-35.0); MEAN CELL VOLUME 86.6 fl (80.0-105.0); MEAN CORPUSCULAR HEMOGLOBIN 31.7 pg (25.0-35.0); MEAN CORPUSCULAR HGB CONC 36.6 g/dl (31.0-37.0); MEAN PLATELET VOLUME 9.8 fl (7.0-11.0); MONO # 0.4 (0.1-0.6); MONO % 7.7 % (1.0-6.0); RBC 3.88 10^6/uL (3.5-6.1); RED CELL DISTRIBUTION WIDTH 12.8 % (11.5-14.5); WHITE BLOOD COUNT 5.7 10^3/ul (4.5-11.0)
[2018-04-06 21:03] LABS: ALB/GLOB RATIO 1.3 (1.1-1.8); ALT/SGPT 67 U/L (7-56); AST/SGOT 134 U/L (17-59); BLOOD UREA NITROGEN 7 mg/dL (7-21); CALCIUM 7.3 mg/dL (8.4-10.5); GFR NON-AFRICAN AMERICAN > 60
[2018-04-06] MEDS ORDERED: Sodium Chloride 3% 500 ML IV SCH (21:15)
--- NOTE | 2018-04-06 21:48 | CP.PCM.HP ---
History of Present Illness - History of Present Illness History of Present Illness: PGY-[address] Rodrigues Mr Smyth is a 57 year old male with a PMHx of CAD s/p stent, alcohol use disorder, HTN, paroxysmal a.fib, depression, tobacco abuse who presented to our ED because he needed help quitting alcohol. He stated he's been drinking 12-15 beers per day (12 oz cans) with his last sip of alcohol 12 hours prior to arrival. For the past 2 days he's been having non-bloody emesis (could not quantify) and numerous episodes of diarrhea (could not quantify). He's had numerous visits and admissions for alcohol withdrawal in the past. He denied seizure activity, syncope, bleeding, bloody stools, chest pain, or shortness of breath. He states he takes 6 medications but could not recall their name. He stated he's takes his medications "most of the time". PMD: Dr Hester PMHx: HTN, CAD, palpitations, alcohol use disorder PSHx: Cardiac stent 6 years prior SocialHx: Lives alone. Daily alcohol use - 12 beers per day. 4-7 cigarettes for approximately 50 years. Denies recreational drug use. Watch Adjuster. Allergies: NKDA Home Meds: Stated he takes 6 different medications but could not recall their names FamHx: Mother (living, no known medical conditions). Father (, no known medical conditions) Present on Admission - Present on Admission Any Indicators Present on Admission: No Review of Systems - Constitutional Constitutional: absent: Chills, Fever - EENT Eyes: absent: Change in Vision - Cardiovascular Cardiovascular: absent: Chest Pain - Respiratory Respiratory: absent: Cough, Hemoptysis - Gastrointestinal Gastrointestinal: Change in Bowel Habits, Diarrhea. absent: Abdominal Pain, Bloating - Genitourinary Genitourinary: absent: Dysuria - Musculoskeletal Musculoskeletal: Arthralgias. absent: Back Pain - Integumentary Integumentary: absent: Bleeding Lesions - Hematologic/Lymphatic Hematologic: absent: Easy Bleeding Past Patient History - Infectious Disease Hx of Infectious Diseases: None - Tetanus Immunizations Tetanus Immunization: Unknown - Past Social History Smoking Status: Never Smoked - CARDIAC Hx Cardiac Disorders: Yes Hx Congestive Heart Failure: Yes (Paroxymal Afib) Hx Hypertension: Yes - PULMONARY Hx Respiratory Disorders: No - NEUROLOGICAL Hx Neurological Disorder: No - HEENT Hx HEENT Problems: No - RENAL Hx Chronic Kidney Disease: No - ENDOCRINE/METABOLIC Hx Endocrine Disorders: No - HEMATOLOGICAL/ONCOLOGICAL Hx Blood Disorders: No - INTEGUMENTARY Hx Dermatological Problems: No - MUSCULOSKELETAL/RHEUMATOLOGICAL Hx Musculoskeletal Disorders: No - GASTROINTESTINAL Hx Gastrointestinal Disorders: No - GENITOURINARY/GYNECOLOGICAL Hx Genitourinary Disorders: No - PSYCHIATRIC Hx Psychophysiologic Disorder: Yes Hx Depression: Yes Hx Substance Use: No Other/Comment: ETOH ABUSE - SURGICAL HISTORY Hx Cardiac Catheterization: Yes (x1) Hx Coronary Stent: Yes - ANESTHESIA Hx Anesthesia: Yes Hx Anesthesia Reactions: No Hx Malignant Hyperthermia: No Meds Allergies/Adverse Reactions: Allergies Allergy/AdvReac Type Severity Reaction Status Date / Time No Known Allergies Allergy Verified 04/06/18 19:54 Physical Exam - Constitutional Appears: No Acute Distress, Unkempt, Older Than Stated Age, Chronically Ill - Head Exam Head Exam: ATRAUMATIC, NORMAL INSPECTION - Eye Exam Eye Exam: EOMI, Normal appearance, PERRL. absent: Scleral icterus - ENT Exam ENT Exam: Mucous Membranes Dry - Neck Exam Neck exam: Positive for: Normal Inspection. Negative for: Tenderness - Respiratory Exam Respiratory Exam: Clear to Auscultation Bilateral, NORMAL BREATHING PATTERN. absent: Chest Wall Tenderness, Rales, Rhonchi, Wheezes - Cardiovascular Exam Cardiovascular Exam: Tachycardia, REGULAR RHYTHM, +S1, +S2. absent: JVD, Systolic Murmur - GI/Abdominal Exam GI & Abdominal Exam: Normal Bowel Sounds, Soft. absent: Distended, Firm, Guarding, Hernia, Tenderness - Extremities Exam Extremities exam: Positive for: full ROM, normal capillary refill, normal inspection, pedal pulses present. Negative for: calf tenderness, pedal edema, tenderness - Neurological Exam Neurological exam: Alert, CN II-XII Intact, Oriented x3, Reflexes Normal - Skin Skin Exam: Dry, Normal Color, Warm Additional comments: numerous healed long linear scars on his chest and arms bilaterally Results - Vital Signs Recent Vital Signs: Last Vital Signs Temp 98.3 F 04/06/18 20:20 Pulse 99 H 04/06/18 19:58 Resp 22 04/06/18 19:58 BP 145/79 04/06/18 19:58 Pulse Ox 99 04/06/18 19:58 - Labs Result Diagrams: 04/06/18 20:10 04/06/18 20:10 Labs: Laboratory Results - last 24 hr 04/06/18 04/06/18 04/06/18 20:10 20:10 20:10 WBC 5.7 RBC 3.88 Hgb 12.3 L Hct 33.6 L MCV 86.6 MCH 31.7 MCHC 36.6 RDW 12.8 Plt Count 206 MPV 9.8 Gran % 72.6 H Lymph % (Auto) 19.7 L [place] % (Auto) 7.7 H Eos % (Auto) 0.0 L Baso % (Auto) 0.0 Gran # 4.13 Lymph # (Auto) 1.1 L [place] # (Auto) 0.4 Eos # (Auto) 0.0 Baso # (Auto) 0.00 Sodium 111 L* Potassium 3.0 L Chloride 73 L Carbon Dioxide 20 L Anion Gap 21 H BUN 7 Creatinine 0.6 L Est GFR ( Amer) > 60 Est GFR (Non-Af Amer) > 60 Random Glucose 95 Calcium 7.3 L Total Bilirubin 1.0 AST 134 H D ALT 67 H Alkaline Phosphatase 75 Total Protein 7.0 Albumin 4.0 Globulin 3.0 Albumin/Globulin Ratio 1.3 Alcohol, Quantitative 252 H Assessment & Plan - Assessment and Plan (Free Text) Plan: Mr Smyth is a 57 year old male with a PMHx of CAD s/p stent, alcohol use disorder, HTN, paroxysmal a.fib, depression, tobacco abuse who presented to our ED for alcohol intoxication and admitted for hyponatremia: Hyponatremia -likely secondary to inadequate solute intake "beer potomania" (patient had a similar admission in 12/2017) and renal water retention 2/2 to volume depletion -was started on hypertonic saline 30cc/hr in the ED which was switched to normal saline 100cc/hr to avoid overcorrection -goal is to increase serum Na 6-8 meq over 24 hrs -repeat bmp q6h and reduce rate of NS if overcorrection occurring -f/u serum and urine osmolality and urine sodium Alcohol Withdrawal -last drink 12 hours prior to presentation -serum alcohol 252 on admission -librium taper scheduled and ativan 2mg q2h prn for symptoms related to alcohol withdrawal -banana bag at 100cc/hr -thiamine 100mg po qd, multivitamin, folic acid 1mg po qd -ciwa q4h -seizure precautions, fall precautions, aspiration precautions Hypokalemia -secondary to vomiting and diarrhea -replete and follow-up bmp HTN -patient was unsure as to which medication he takes but chart review showed he takes amolidipine 10mg po qd, hctz 25mg po qd, metoprolol tartrate 50mg po bid, and valsartan 324mg po qd -resume home metoprolol 50mg po bid Paroxysmal AFib -not in AFib currently -resume home metoprolol 50mg po bid CAD -s/p cardiac stent -aspirin 81mg po qd and atorvastatin 20mg po din for secondary prevention Elevated LFTs -ratio indicates alcohol use disorder -hep panel in 09/2017 was negative HLD -lipid panel in 12/2017 was normal -lipitor 20mg po din PPx -scd's -heart healthy diet
[2018-04-06] MEDS ORDERED: Multivitamin (MVI) 10 ML, Thiamine 100 MG, Folic Acid 1 MG in Sodium Chloride 0.9% 1,00... IV ONE (22:06)
[2018-04-06] MEDS: Potassium Chloride 20 mEq ER Tab PO SCH (22:28)
[2018-04-07 01:20] VITALS: BMI 27.6
[2018-04-07 01:50] LABS: BLOOD UREA NITROGEN 6 mg/dL (7-21); CALCIUM 7.2 mg/dL (8.4-10.5); GFR NON-AFRICAN AMERICAN > 60
[2018-04-07] MEDS: Potassium Chloride 20 mEq ER Tab PO SCH (02:11)
[2018-04-07 06:50] LABS: BLOOD UREA NITROGEN 4 mg/dL (7-21); CALCIUM 7.9 mg/dL (8.4-10.5); GFR NON-AFRICAN AMERICAN > 60
--- NOTE | 2018-04-07 08:08 | CP.CCUPN ---
<Jemal Perdomo - Last Filed: 04/07/18 12:29> CCU Subjective - Physician Review Subjective (Free Text): Jemal Perdomo DO, PGY-1 ICU Progress Note for Dr. 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 He admits to coming in to ED for help with alcohol withdrawals. He states that he typically drinks 10-12 beers per day and has been drinking for the past 2 weeks. He states that he has tried to quit alcohol in the past but has been unsucce ssful. He states that when he tries to stop drinking, he has tremors. In ED, his Na was noted to be 111 and was subsequently given hypertonic saline, then switched to NS. Repeat Na levels have been 121 and 127 at 6 and 9 hours from initial labs. He also admits to having nausea and diarrhea worsening over the past five days. This AM, patient reports that his nausea and diarrhea are improving and denies CP, SOB, ZHANG, changes in vision, or peripheral swelling. CCU Objective - Vital Signs / Intake & Output Vital Signs (Last 4 hours): Vital Signs Temp Pulse Resp BP Pulse Ox 04/07/18 06:00 98 H 04/07/18 05:30 95 H 16 95 04/07/18 05:20 100 H 20 94 L 04/07/18 05:10 101 H 16 94 L 04/07/18 05:00 96 H 16 131/70 92 L 04/07/18 04:50 99 H 19 95 04/07/18 04:40 93 H 14 94 L 04/07/18 04:30 92 H 16 95 04/07/18 04:27 98 F 98 H 18 96 04/07/18 04:20 90 17 96 04/07/18 04:10 89 15 95 Intake and Output (Last 8hrs): Intake & Output 04/06/18 04/07/18 04/07/18 22:59 06:59 14:59 Intake Total 1200 Output Total 2800 Balance -1600 Weight 175 lb 176 lb 6 oz Intake: IV 700 Right Forearm 700 Oral 500 Output: Urine 2800 Urine, Voided 2800 Other: Voiding Method Urinal # Voids Urine, Voided 3 - Physical Exam Head: Positive for: Atraumatic, Normocephalic Pupils: Positive for: PERRL Extroacular Muscles: Positive for: EOMI Conjunctiva: Positive for: Normal Mouth: Positive for: Moist Mucous Membranes, Other (missing teeth, poor oral hygiene) Pharnyx: Positive for: Normal. Negative for: ERYTHEMA, EXUDATE Neck: Positive for: Normal Range of Motion Respiratory/Chest: Positive for: Clear to Auscultation, Good Air Exchange. Negative for: Respiratory Distress, Accessory Muscle Use, Wheezes, Rales, Rhonchi Cardiovascular: Positive for: Regular Rate and Rhythm, Normal S1, S2. Negative for: Murmurs, Rub, Gallop Abdomen: Positive for: Tenderness (mild tenderness to palpation in epigastric region). Negative for: Distention, Peritoneal Signs, Rebound, Guarding Upper Extremity: Positive for: Normal Inspection. Negative for: Cyanosis, Edema Lower Extremity: Positive for: Normal Inspection. Negative for: Edema Neurological: Positive for: Speech Normal, Motor Func Grossly Intact Skin: Positive for: Warm, Dry, Normal Color. Negative for: Rashes Psychiatric: Positive for: Alert, Oriented x 3 - Medications Active Medications: Active Medications Generic Name Dose Route Start Last Admin Trade Name Freq PRN Reason Stop Dose Admin Aspirin 81 mg 04/07/18 10:00 Aspirin Chewable PO DAILY [facility] Atorvastatin Calcium 20 mg 04/07/18 17:00 Lipitor PO DIN [facility] Chlordiazepoxide 25 mg 04/07/18 06:00 04/07/18 05:20 Librium PO 04/07/18 18:01 25 mg Q6H [facility] Administration Protocol Chlordiazepoxide 25 mg 04/07/18 22:00 Librium PO 04/08/18 14:01 Q8H [facility] Protocol Chlordiazepoxide 25 mg 04/08/18 22:00 Librium PO 04/09/18 10:01 Q12H [facility] Protocol Chlordiazepoxide 25 mg 04/09/18 22:00 Librium PO 04/09/18 22:01 Q24H [facility] Protocol Folic Acid 1 mg 04/07/18 10:00 Folic Acid PO DAILY [facility] Dextrose 1,000 mls @ 500 mls/hr 04/07/18 08:00 Dextrose 5% In Water 1000 Ml IV .Q2H [facility] Potassium Chloride 10 meq in 100 mls @ 50 mls/hr 04/07/18 07:30 Potassium Chloride 10 Meq/100 Ml IVPB 04/07/18 11:29 Q2H [facility] Lorazepam 2 mg 04/06/18 22:07 Ativan IVP Q2H PRN Symptoms of alcohol withdrawl Protocol Metoprolol Tartrate 50 mg 04/07/18 08:00 Lopressor PO 0800,1800 [facility] Ondansetron HCl 4 mg 04/06/18 22:07 Zofran Inj IVP Q6H PRN Nausea/Vomiting Thiamine HCl 100 mg 04/07/18 10:00 Vitamin B1 Tab PO DAILY [facility] - Patient Studies Lab Studies: Lab Studies 04/07/18 04/07/18 04/07/18 Range/Units 05:30 01:32 00:05 WBC (4.5-11.0) 10^3/ul RBC (3.5-6.1) 10^6/uL Hgb (14.0-18.0) g/dL Hct (42.0-52.0) % MCV (80.0-105.0) fl MCH (25.0-35.0) pg MCHC (31.0-37.0) g/dl RDW (11.5-14.5) % Plt Count (120.0-450.0) 10^3/uL MPV (7.0-11.0) fl Gran % (50.0-68.0) % Lymph % (Auto) (22.0-35.0) % [place] % (Auto) (1.0-6.0) % Eos % (Auto) (1.5-5.0) % Baso % (Auto) (0.0-3.0) % Gran # (1.4-6.5) Lymph # (Auto) (1.2-3.4) [place] # (Auto) (0.1-0.6) Eos # (Auto) (0.0-0.7) Baso # (Auto) (0.0-2.0) K/mm3 Sodium 127 L 121 L (132-148) mmol/L Potassium 3.2 L 3.2 L (3.6-5.0) mmol/L Chloride 94 L 86 L (98-107) mmol/L Carbon Dioxide 20 L 19 L (21-33) mmol/L Anion Gap 16 19 (10-20) BUN 4 L 6 L (7-21) mg/dL Creatinine 0.6 L 0.5 L (0.8-1.5) mg/dl Est GFR ( Amer) > 60 > 60 Est GFR (Non-Af Amer) > 60 > 60 Random Glucose 103 82 (70-110) mg/dL Serum Osmolality (272-300) mosm/kg Calcium 7.9 L 7.2 L (8.4-10.5) mg/dL Phosphorus 2.6 (2.5-4.5) mg/dL Magnesium 2.2 (1.7-2.2) mg/dL Total Bilirubin (0.2-1.3) mg/dL AST (17-59) U/L ALT (7-56) U/L Alkaline Phosphatase (38-126) U/L Total Protein (5.8-8.3) g/dL Albumin (3.0-4.8) g/dL Globulin gm/dL Albumin/Globulin Ratio (1.1-1.8) Urine Osmolality 114 L (300-1000) mosm/kg Ur Random Sodium meq/L Alcohol, Quantitative (0-10) mg/dL 04/07/18 04/06/18 04/06/18 Range/Units 00:05 20:10 20:10 WBC (4.5-11.0) 10^3/ul RBC (3.5-6.1) 10^6/uL Hgb (14.0-18.0) g/dL Hct (42.0-52.0) % MCV (80.0-105.0) fl MCH (25.0-35.0) pg MCHC (31.0-37.0) g/dl RDW (11.5-14.5) % Plt Count (120.0-450.0) 10^3/uL MPV (7.0-11.0) fl Gran % (50.0-68.0) % Lymph % (Auto) (22.0-35.0) % [place] % (Auto) (1.0-6.0) % Eos % (Auto) (1.5-5.0) % Baso % (Auto) (0.0-3.0) % Gran # (1.4-6.5) Lymph # (Auto) (1.2-3.4) [place] # (Auto) (0.1-0.6) Eos # (Auto) (0.0-0.7) Baso # (Auto) (0.0-2.0) K/mm3 Sodium (132-148) mmol/L Potassium (3.6-5.0) mmol/L Chloride (98-107) mmol/L Carbon Dioxide (21-33) mmol/L Anion Gap (10-20) BUN (7-21) mg/dL Creatinine (0.8-1.5) mg/dl Est GFR ( Amer) Est GFR (Non-Af Amer) Random Glucose (70-110) mg/dL Serum Osmolality 289 (272-300) mosm/kg Calcium (8.4-10.5) mg/dL Phosphorus (2.5-4.5) mg/dL Magnesium (1.7-2.2) mg/dL Total Bilirubin (0.2-1.3) mg/dL AST (17-59) U/L ALT (7-56) U/L Alkaline Phosphatase (38-126) U/L Total Protein (5.8-8.3) g/dL Albumin (3.0-4.8) g/dL Globulin gm/dL Albumin/Globulin Ratio (1.1-1.8) Urine Osmolality (300-1000) mosm/kg Ur Random Sodium < 5 meq/L Alcohol, Quantitative 252 H (0-10) mg/dL 04/06/18 04/06/18 Range/Units 20:10 20:10 WBC 5.7 (4.5-11.0) 10^3/ul RBC 3.88 (3.5-6.1) 10^6/uL Hgb 12.3 L (14.0-18.0) g/dL Hct 33.6 L (42.0-52.0) % MCV 86.6 (80.0-105.0) fl MCH 31.7 (25.0-35.0) pg MCHC 36.6 (31.0-37.0) g/dl RDW 12.8 (11.5-14.5) % Plt Count 206 (120.0-450.0) 10^3/uL MPV 9.8 (7.0-11.0) fl Gran % 72.6 H (50.0-68.0) % Lymph % (Auto) 19.7 L (22.0-35.0) % [place] % (Auto) 7.7 H (1.0-6.0) % Eos % (Auto) 0.0 L (1.5-5.0) % Baso % (Auto) 0.0 (0.0-3.0) % Gran # 4.13 (1.4-6.5) Lymph # (Auto) 1.1 L (1.2-3.4) [place] # (Auto) 0.4 (0.1-0.6) Eos # (Auto) 0.0 (0.0-0.7) Baso # (Auto) 0.00 (0.0-2.0) K/mm3 Sodium 111 L* (132-148) mmol/L Potassium 3.0 L (3.6-5.0) mmol/L Chloride 73 L (98-107) mmol/L Carbon Dioxide 20 L (21-33) mmol/L Anion Gap 21 H (10-20) BUN 7 (7-21) mg/dL Creatinine 0.6 L (0.8-1.5) mg/dl Est GFR ( Amer) > 60 Est GFR (Non-Af Amer) > 60 Random Glucose 95 (70-110) mg/dL Serum Osmolality (272-300) mosm/kg Calcium 7.3 L (8.4-10.5) mg/dL Phosphorus (2.5-4.5) mg/dL Magnesium (1.7-2.2) mg/dL Total Bilirubin 1.0 (0.2-1.3) mg/dL AST 134 H D (17-59) U/L ALT 67 H (7-56) U/L Alkaline Phosphatase 75 (38-126) U/L Total Protein 7.0 (5.8-8.3) g/dL Albumin 4.0 (3.0-4.8) g/dL Globulin 3.0 gm/dL Albumin/Globulin Ratio 1.3 (1.1-1.8) Urine Osmolality (300-1000) mosm/kg Ur Random Sodium meq/L Alcohol, Quantitative (0-10) mg/dL Laboratory Results - last 24 hr 04/06/18 04/06/18 04/06/18 20:10 20:10 20:10 WBC 5.7 RBC 3.88 Hgb 12.3 L Hct 33.6 L MCV 86.6 MCH 31.7 MCHC 36.6 RDW 12.8 Plt Count 206 MPV 9.8 Gran % 72.6 H Lymph % (Auto) 19.7 L [place] % (Auto) 7.7 H Eos % (Auto) 0.0 L Baso % (Auto) 0.0 Gran # 4.13 Lymph # (Auto) 1.1 L [place] # (Auto) 0.4 Eos # (Auto) 0.0 Baso # (Auto) 0.00 Sodium 111 L* Potassium 3.0 L Chloride 73 L Carbon Dioxide 20 L Anion Gap 21 H BUN 7 Creatinine 0.6 L Est GFR ( Amer) > 60 Est GFR (Non-Af Amer) > 60 Random Glucose 95 Serum Osmolality Calcium 7.3 L Phosphorus Magnesium Total Bilirubin 1.0 AST 134 H D ALT 67 H Alkaline Phosphatase 75 Total Protein 7.0 Albumin 4.0 Globulin 3.0 Albumin/Globulin Ratio 1.3 Urine Osmolality Ur Random Sodium Alcohol, Quantitative 252 H 04/06/18 04/07/18 04/07/18 20:10 00:05 00:05 WBC RBC Hgb Hct MCV MCH MCHC RDW Plt Count MPV Gran % Lymph % (Auto) [place] % (Auto) Eos % (Auto) Baso % (Auto) Gran # Lymph # (Auto) [place] # (Auto) Eos # (Auto) Baso # (Auto) Sodium Potassium Chloride Carbon Dioxide Anion Gap BUN Creatinine Est GFR ( Amer) Est GFR (Non-Af Amer) Random Glucose Serum Osmolality 289 Calcium Phosphorus Magnesium Total Bilirubin AST ALT Alkaline Phosphatase Total Protein Albumin Globulin Albumin/Globulin Ratio Urine Osmolality 114 L Ur Random Sodium < 5 Alcohol, Quantitative 04/07/18 04/07/18 01:32 05:30 WBC RBC Hgb Hct MCV MCH MCHC RDW Plt Count MPV Gran % Lymph % (Auto) [place] % (Auto) Eos % (Auto) Baso % (Auto) Gran # Lymph # (Auto) [place] # (Auto) Eos # (Auto) Baso # (Auto) Sodium 121 L 127 L Potassium 3.2 L 3.2 L Chloride 86 L 94 L Carbon Dioxide 19 L 20 L Anion Gap 19 16 BUN 6 L 4 L Creatinine 0.5 L 0.6 L Est GFR ( Amer) > 60 > 60 Est GFR (Non-Af Amer) > 60 > 60 Random Glucose 82 103 Serum Osmolality Calcium 7.2 L 7.9 L Phosphorus 2.6 Magnesium 2.2 Total Bilirubin AST ALT Alkaline Phosphatase Total Protein Albumin Globulin Albumin/Globulin Ratio Urine Osmolality Ur Random Sodium Alcohol, Quantitative EKG/Cardiology Studies: Cardiology / EKG Studies 04/06/18 20:24 EKG [ELECTROCARDIOGRAM] Stat Comment: Reason For Exam: sob Review of Systems - Constitutional Constitutional: absent: Fever, Chills - EENT Eyes: absent: Blurred Vision, Change in Vision - Cardiovascular Cardiovascular: absent: Chest Pain, Dyspnea, Irregular Heart Rhythm - Respiratory Respiratory: absent: Cough, Dyspnea - Gastrointestinal Gastrointestinal: Diarrhea, Nausea. absent: Vomiting - Genitourinary Genitourinary: absent: Change in Urinary Stream Critical Care Progress Note - Nutrition Nutrition: Nutrition Category Date Time Status Heart Healthy Diet [DIET] Diets 04/06/18 Breakfast Active Assessment/Plan - Assessment and Plan (Free Text) Assessment: 57 yo M with PMH of HTN, CAD, and chronic alcoholism presents with severe hyponatremia 2/2 excessive beer drinking and inadequate oral intake. Plan: Neuro: A/o x 3 currently No tremors or other withdrawal signs on PE currently Monitor closely for withdrawal symptoms [facility] protocol Re-orient as necessary Cardio: Tachycardia may be 2/2 early withdrawal symptoms Monitor closely EKG in ED without ST or T wave changes K of 3.0 repleted Pulm: CTA b/l, no signs of respiratory distress Currently SpO2 > 95% on room air Supp O2 NC PRN /Nephro: Hyponatremia, hypokalemia on admission Hypertonic saline followed by NS given in ED Correction rate is too rapid at this point DDAVP two doses ordered D5W 1 L bolus and D5W at 500 cc/hr continuous ordered per nephrology recs Continue serial BMPs Q4h, serial urine osmolality Urine osmolality so far very dilute, c/w beer podomania Banana bag and K repletion ordered Nephrology following, recs appreciated GI: Currently no nausea/vomiting HHD as tolerated Monitor Na closely ID: Afebrile, no leukocytosis Monitor for s/sx of infection Heme/Onc: H/h stable at 12.3/33.6 Continue to monitor H/h and for s/sx of HD compromise GI/DVT PPX: Protonix and SC heparin Full Code Monitor in MICU Case and plan reviewed and discussed with my attending Dr. Isma Perdomo, DO IM Resident PGY-1 <Derrick Yeung - Last Filed: 04/07/18 14:46> CCU Objective - Vital Signs / Intake & Output Vital Signs (Last 4 hours): Vital Signs Temp Pulse Resp BP Pulse Ox 04/07/18 14:16 137/75 97 04/07/18 14:10 21 95 04/07/18 14:00 100 H 22 85 L 04/07/18 13:50 106 H 73 H 94 L 04/07/18 13:40 85 19 96 04/07/18 13:30 85 17 97 04/07/18 13:20 91 H 34 H 98 04/07/18 13:10 85 19 97 04/07/18 13:00 89 17 145/81 95 04/07/18 12:50 90 18 97 04/07/18 12:40 96 H 36 H 94 L 04/07/18 12:30 97 H 20 94 L 04/07/18 12:20 90 21 96 04/07/18 12:10 105 H 26 H 04/07/18 12:00 95 H 19 144/88 96 04/07/18 11:50 87 17 96 04/07/18 11:40 86 17 96 04/07/18 11:30 87 16 96 04/07/18 11:28 99.8 F H 04/07/18 11:20 82 19 96 04/07/18 11:10 87 18 96 04/07/18 11:00 90 17 136/87 96 04/07/18 10:50 83 17 96 Intake and Output (Last 8hrs): Intake & Output 04/06/18 04/07/18 04/07/18 22:59 06:59 14:59 Intake Total 1200 Output Total 2800 Balance -1600 Weight 79.379 kg 80.002 kg Intake: IV 700 Right Forearm 700 Oral 500 Output: Urine 2800 Urine, Voided 2800 Other: Voiding Method Urinal # Voids Urine, Voided 3 - Medications Active Medications: Active Medications Generic Name Dose Route Start Last Admin Trade Name Freq PRN Reason Stop Dose Admin Aspirin 81 mg 04/07/18 10:00 04/07/18 09:37 Aspirin Chewable PO 81 mg DAILY [facility] Administration Atorvastatin Calcium 20 mg 04/07/18 17:00 Lipitor PO DIN [facility] Folic Acid 1 mg 04/07/18 10:00 04/07/18 09:36 Folic Acid PO 1 mg DAILY [facility] Administration Heparin Sodium (Porcine) 5,000 units 04/07/18 14:00 04/07/18 13:47 Heparin SC 5,000 units Q8 [facility] Administration Protocol Dextrose 1,000 mls @ 500 mls/hr 04/07/18 08:00 04/07/18 13:47 Dextrose 5% In Water 1000 Ml IV 500 mls/hr .Q2H [facility] Administration Lorazepam 2 mg 04/07/18 11:45 04/07/18 11:52 Ativan IVP Not Given Q6H [facility] Protocol Lorazepam 1 mg 04/07/18 11:45 Ativan IVP Q1 PRN Anxiety Protocol Metoprolol Tartrate 50 mg 04/07/18 08:00 04/07/18 08:13 Lopressor PO 50 mg 0800,1800 [facility] Administration Ondansetron HCl 4 mg 04/06/18 22:07 Zofran Inj IVP Q6H PRN Nausea/Vomiting Pantoprazole Sodium 40 mg 04/08/18 06:00 Protonix Ec Tab PO 0600 [facility] Thiamine HCl 100 mg 04/07/18 10:00 04/07/18 09:37 Vitamin B1 Tab PO 100 mg DAILY [facility] Administration - Patient Studies Lab Studies: Lab Studies 04/07/18 04/07/18 04/07/18 Range/Units 14:00 12:30 12:00 WBC (4.5-11.0) 10^3/ul RBC (3.5-6.1) 10^6/uL Hgb (14.0-18.0) g/dL Hct (42.0-52.0) % MCV (80.0-105.0) fl MCH (25.0-35.0) pg MCHC (31.0-37.0) g/dl RDW (11.5-14.5) % Plt Count (120.0-450.0) 10^3/uL MPV (7.0-11.0) fl Gran % (50.0-68.0) % Lymph % (Auto) (22.0-35.0) % [place] % (Auto) (1.0-6.0) % Eos % (Auto) (1.5-5.0) % Baso % (Auto) (0.0-3.0) % Gran # (1.4-6.5) Lymph # (Auto) (1.2-3.4) [place] # (Auto) (0.1-0.6) Eos # (Auto) (0.0-0.7) Baso # (Auto) (0.0-2.0) K/mm3 Sodium 122 L 123 L (132-148) mmol/L Potassium 3.6 3.9 (3.6-5.0) mmol/L Chloride 91 L 89 L (98-107) mmol/L Carbon Dioxide 20 L 23 (21-33) mmol/L Anion Gap 14 15 (10-20) BUN 7 6 L (7-21) mg/dL Creatinine 0.7 L 0.7 L (0.8-1.5) mg/dl Est GFR ( Amer) > 60 > 60 Est GFR (Non-Af Amer) > 60 > 60 Random Glucose 109 158 H (70-110) mg/dL Hemoglobin A1c (4.2-6.5) % Serum Osmolality (272-300) mosm/kg Calcium 8.2 L 8.3 L (8.4-10.5) mg/dL Phosphorus (2.5-4.5) mg/dL Magnesium (1.7-2.2) mg/dL Total Bilirubin (0.2-1.3) mg/dL AST (17-59) U/L ALT (7-56) U/L Alkaline Phosphatase (38-126) U/L Total Protein (5.8-8.3) g/dL Albumin (3.0-4.8) g/dL Globulin gm/dL Albumin/Globulin Ratio (1.1-1.8) Lipase (23-300) U/L TSH 3rd Generation 0.46 (0.46-4.68) mIU/mL Urine Osmolality (300-1000) mosm/kg Ur Random Sodium meq/L Alcohol, Quantitative (0-10) mg/dL 04/07/18 04/07/18 04/07/18 Range/Units 11:23 09:30 05:35 WBC (4.5-11.0) 10^3/ul RBC (3.5-6.1) 10^6/uL Hgb (14.0-18.0) g/dL Hct (42.0-52.0) % MCV (80.0-105.0) fl MCH (25.0-35.0) pg MCHC (31.0-37.0) g/dl RDW (11.5-14.5) % Plt Count (120.0-450.0) 10^3/uL MPV (7.0-11.0) fl Gran % (50.0-68.0) % Lymph % (Auto) (22.0-35.0) % [place] % (Auto) (1.0-6.0) % Eos % (Auto) (1.5-5.0) % Baso % (Auto) (0.0-3.0) % Gran # (1.4-6.5) Lymph # (Auto) (1.2-3.4) [place] # (Auto) (0.1-0.6) Eos # (Auto) (0.0-0.7) Baso # (Auto) (0.0-2.0) K/mm3 Sodium 124 L (132-148) mmol/L Potassium 3.6 (3.6-5.0) mmol/L Chloride 93 L (98-107) mmol/L Carbon Dioxide 21 (21-33) mmol/L Anion Gap 14 (10-20) BUN 4 L (7-21) mg/dL Creatinine 0.6 L (0.8-1.5) mg/dl Est GFR ( Amer) > 60 Est GFR (Non-Af Amer) > 60 Random Glucose 206 H (70-110) mg/dL Hemoglobin A1c (4.2-6.5) % Serum Osmolality (272-300) mosm/kg Calcium 10.3 (8.4-10.5) mg/dL Phosphorus (2.5-4.5) mg/dL Magnesium (1.7-2.2) mg/dL Total Bilirubin (0.2-1.3) mg/dL AST (17-59) U/L ALT (7-56) U/L Alkaline Phosphatase (38-126) U/L Total Protein (5.8-8.3) g/dL Albumin (3.0-4.8) g/dL Globulin gm/dL Albumin/Globulin Ratio (1.1-1.8) Lipase 372 H (23-300) U/L TSH 3rd Generation (0.46-4.68) mIU/mL Urine Osmolality 182 L (300-1000) mosm/kg Ur Random Sodium meq/L Alcohol, Quantitative (0-10) mg/dL 04/07/18 04/07/18 04/07/18 Range/Units 05:30 05:30 01:32 WBC (4.5-11.0) 10^3/ul RBC (3.5-6.1) 10^6/uL Hgb (14.0-18.0) g/dL Hct (42.0-52.0) % MCV (80.0-105.0) fl MCH (25.0-35.0) pg MCHC (31.0-37.0) g/dl RDW (11.5-14.5) % Plt Count (120.0-450.0) 10^3/uL MPV (7.0-11.0) fl Gran % (50.0-68.0) % Lymph % (Auto) (22.0-35.0) % [place] % (Auto) (1.0-6.0) % Eos % (Auto) (1.5-5.0) % Baso % (Auto) (0.0-3.0) % Gran # (1.4-6.5) Lymph # (Auto) (1.2-3.4) [place] # (Auto) (0.1-0.6) Eos # (Auto) (0.0-0.7) Baso # (Auto) (0.0-2.0) K/mm3 Sodium 127 L 121 L (132-148) mmol/L Potassium 3.2 L 3.2 L (3.6-5.0) mmol/L Chloride 94 L 86 L (98-107) mmol/L Carbon Dioxide 20 L 19 L (21-33) mmol/L Anion Gap 16 19 (10-20) BUN 4 L 6 L (7-21) mg/dL Creatinine 0.6 L 0.5 L (0.8-1.5) mg/dl Est GFR ( Amer) > 60 > 60 Est GFR (Non-Af Amer) > 60 > 60 Random Glucose 103 82 (70-110) mg/dL Hemoglobin A1c 5.2 (4.2-6.5) % Serum Osmolality (272-300) mosm/kg Calcium 7.9 L 7.2 L (8.4-10.5) mg/dL Phosphorus 2.6 (2.5-4.5) mg/dL Magnesium 2.2 (1.7-2.2) mg/dL Total Bilirubin (0.2-1.3) mg/dL AST (17-59) U/L ALT (7-56) U/L Alkaline Phosphatase (38-126) U/L Total Protein (5.8-8.3) g/dL Albumin (3.0-4.8) g/dL Globulin gm/dL Albumin/Globulin Ratio (1.1-1.8) Lipase (23-300) U/L TSH 3rd Generation (0.46-4.68) mIU/mL Urine Osmolality (300-1000) mosm/kg Ur Random Sodium meq/L Alcohol, Quantitative (0-10) mg/dL 04/07/18 04/07/18 04/06/18 Range/Units 00:05 00:05 20:10 WBC (4.5-11.0) 10^3/ul RBC (3.5-6.1) 10^6/uL Hgb (14.0-18.0) g/dL Hct (42.0-52.0) % MCV (80.0-105.0) fl MCH (25.0-35.0) pg MCHC (31.0-37.0) g/dl RDW (11.5-14.5) % Plt Count (120.0-450.0) 10^3/uL MPV (7.0-11.0) fl Gran % (50.0-68.0) % Lymph % (Auto) (22.0-35.0) % [place] % (Auto) (1.0-6.0) % Eos % (Auto) (1.5-5.0) % Baso % (Auto) (0.0-3.0) % Gran # (1.4-6.5) Lymph # (Auto) (1.2-3.4) [place] # (Auto) (0.1-0.6) Eos # (Auto) (0.0-0.7) Baso # (Auto) (0.0-2.0) K/mm3 Sodium (132-148) mmol/L Potassium (3.6-5.0) mmol/L Chloride (98-107) mmol/L Carbon Dioxide (21-33) mmol/L Anion Gap (10-20) BUN (7-21) mg/dL Creatinine (0.8-1.5) mg/dl Est GFR ( Amer) Est GFR (Non-Af Amer) Random Glucose (70-110) mg/dL Hemoglobin A1c (4.2-6.5) % Serum Osmolality 289 (272-300) mosm/kg Calcium (8.4-10.5) mg/dL Phosphorus (2.5-4.5) mg/dL Magnesium (1.7-2.2) mg/dL Total Bilirubin (0.2-1.3) mg/dL AST (17-59) U/L ALT (7-56) U/L Alkaline Phosphatase (38-126) U/L Total Protein (5.8-8.3) g/dL Albumin (3.0-4.8) g/dL Globulin gm/dL Albumin/Globulin Ratio (1.1-1.8) Lipase (23-300) U/L TSH 3rd Generation (0.46-4.68) mIU/mL Urine Osmolality 114 L (300-1000) mosm/kg Ur Random Sodium < 5 meq/L Alcohol, Quantitative (0-10) mg/dL 04/06/18 04/06/18 04/06/18 Range/Units 20:10 20:10 20:10 WBC 5.7 (4.5-11.0) 10^3/ul RBC 3.88 (3.5-6.1) 10^6/uL Hgb 12.3 L (14.0-18.0) g/dL Hct 33.6 L (42.0-52.0) % MCV 86.6 (80.0-105.0) fl MCH 31.7 (25.0-35.0) pg MCHC 36.6 (31.0-37.0) g/dl RDW 12.8 (11.5-14.5) % Plt Count 206 (120.0-450.0) 10^3/uL MPV 9.8 (7.0-11.0) fl Gran % 72.6 H (50.0-68.0) % Lymph % (Auto) 19.7 L (22.0-35.0) % [place] % (Auto) 7.7 H (1.0-6.0) % Eos % (Auto) 0.0 L (1.5-5.0) % Baso % (Auto) 0.0 (0.0-3.0) % Gran # 4.13 (1.4-6.5) Lymph # (Auto) 1.1 L (1.2-3.4) [place] # (Auto) 0.4 (0.1-0.6) Eos # (Auto) 0.0 (0.0-0.7) Baso # (Auto) 0.00 (0.0-2.0) K/mm3 Sodium 111 L* (132-148) mmol/L Potassium 3.0 L (3.6-5.0) mmol/L Chloride 73 L (98-107) mmol/L Carbon Dioxide 20 L (21-33) mmol/L Anion Gap 21 H (10-20) BUN 7 (7-21) mg/dL Creatinine 0.6 L (0.8-1.5) mg/dl Est GFR ( Amer) > 60 Est GFR (Non-Af Amer) > 60 Random Glucose 95 (70-110) mg/dL Hemoglobin A1c (4.2-6.5) % Serum Osmolality (272-300) mosm/kg Calcium 7.3 L (8.4-10.5) mg/dL Phosphorus (2.5-4.5) mg/dL Magnesium (1.7-2.2) mg/dL Total Bilirubin 1.0 (0.2-1.3) mg/dL AST 134 H D (17-59) U/L ALT 67 H (7-56) U/L Alkaline Phosphatase 75 (38-126) U/L Total Protein 7.0 (5.8-8.3) g/dL Albumin 4.0 (3.0-4.8) g/dL Globulin 3.0 gm/dL Albumin/Globulin Ratio 1.3 (1.1-1.8) Lipase (23-300) U/L TSH 3rd Generation (0.46-4.68) mIU/mL Urine Osmolality (300-1000) mosm/kg Ur Random Sodium meq/L Alcohol, Quantitative 252 H (0-10) mg/dL Laboratory Results - last 24 hr 04/06/18 04/06/18 04/06/18 20:10 20:10 20:10 WBC 5.7 RBC 3.88 Hgb 12.3 L Hct 33.6 L MCV 86.6 MCH 31.7 MCHC 36.6 RDW 12.8 Plt Count 206 MPV 9.8 Gran % 72.6 H Lymph % (Auto) 19.7 L [place] % (Auto) 7.7 H Eos % (Auto) 0.0 L Baso % (Auto) 0.0 Gran # 4.13 Lymph # (Auto) 1.1 L [place] # (Auto) 0.4 Eos # (Auto) 0.0 Baso # (Auto) 0.00 Sodium 111 L* Potassium 3.0 L Chloride 73 L Carbon Dioxide 20 L Anion Gap 21 H BUN 7 Creatinine 0.6 L Est GFR ( Amer) > 60 Est GFR (Non-Af Amer) > 60 Random Glucose 95 Hemoglobin A1c Serum Osmolality Calcium 7.3 L Phosphorus Magnesium Total Bilirubin 1.0 AST 134 H D ALT 67 H Alkaline Phosphatase 75 Total Protein 7.0 Albumin 4.0 Globulin 3.0 Albumin/Globulin Ratio 1.3 Lipase TSH 3rd Generation Urine Osmolality Ur Random Sodium Alcohol, Quantitative 252 H 04/06/18 04/07/18 04/07/18 20:10 00:05 00:05 WBC RBC Hgb Hct MCV MCH MCHC RDW Plt Count MPV Gran % Lymph % (Auto) [place] % (Auto) Eos % (Auto) Baso % (Auto) Gran # Lymph # (Auto) [place] # (Auto) Eos # (Auto) Baso # (Auto) Sodium Potassium Chloride Carbon Dioxide Anion Gap BUN Creatinine Est GFR ( Amer) Est GFR (Non-Af Amer) Random Glucose Hemoglobin A1c Serum Osmolality 289 Calcium Phosphorus Magnesium Total Bilirubin AST ALT Alkaline Phosphatase Total Protein Albumin Globulin Albumin/Globulin Ratio Lipase TSH 3rd Generation Urine Osmolality 114 L Ur Random Sodium < 5 Alcohol, Quantitative 04/07/18 04/07/18 04/07/18 01:32 05:30 05:30 WBC RBC Hgb Hct MCV MCH MCHC RDW Plt Count MPV Gran % Lymph % (Auto) [place] % (Auto) Eos % (Auto) Baso % (Auto) Gran # Lymph # (Auto) [place] # (Auto) Eos # (Auto) Baso # (Auto) Sodium 121 L 127 L Potassium 3.2 L 3.2 L Chloride 86 L 94 L Carbon Dioxide 19 L 20 L Anion Gap 19 16 BUN 6 L 4 L Creatinine 0.5 L 0.6 L Est GFR ( Amer) > 60 > 60 Est GFR (Non-Af Amer) > 60 > 60 Random Glucose 82 103 Hemoglobin A1c 5.2 Serum Osmolality Calcium 7.2 L 7.9 L Phosphorus 2.6 Magnesium 2.2 Total Bilirubin AST ALT Alkaline Phosphatase Total Protein Albumin Globulin Albumin/Globulin Ratio Lipase TSH 3rd Generation Urine Osmolality Ur Random Sodium Alcohol, Quantitative 04/07/18 04/07/18 04/07/18 05:35 09:30 11:23 WBC RBC Hgb Hct MCV MCH MCHC RDW Plt Count MPV Gran % Lymph % (Auto) [place] % (Auto) Eos % (Auto) Baso % (Auto) Gran # Lymph # (Auto) [place] # (Auto) Eos # (Auto) Baso # (Auto) Sodium 124 L Potassium 3.6 Chloride 93 L Carbon Dioxide 21 Anion Gap 14 BUN 4 L Creatinine 0.6 L Est GFR ( Amer) > 60 Est GFR (Non-Af Amer) > 60 Random Glucose 206 H Hemoglobin A1c Serum Osmolality Calcium 10.3 Phosphorus Magnesium Total Bilirubin AST ALT Alkaline Phosphatase Total Protein Albumin Globulin Albumin/Globulin Ratio Lipase 372 H TSH 3rd Generation Urine Osmolality 182 L Ur Random Sodium Alcohol, Quantitative 04/07/18 04/07/18 04/07/18 12:00 12:30 14:00 WBC RBC Hgb Hct MCV MCH MCHC RDW Plt Count MPV Gran % Lymph % (Auto) [place] % (Auto) Eos % (Auto) Baso % (Auto) Gran # Lymph # (Auto) [place] # (Auto) Eos # (Auto) Baso # (Auto) Sodium 123 L 122 L Potassium 3.9 3.6 Chloride 89 L 91 L Carbon Dioxide 23 20 L Anion Gap 15 14 BUN 6 L 7 Creatinine 0.7 L 0.7 L Est GFR ( Amer) > 60 > 60 Est GFR (Non-Af Amer) > 60 > 60 Random Glucose 158 H 109 Hemoglobin A1c Serum Osmolality Calcium 8.3 L 8.2 L Phosphorus Magnesium Total Bilirubin AST ALT Alkaline Phosphatase Total Protein Albumin Globulin Albumin/Globulin Ratio Lipase TSH 3rd Generation 0.46 Urine Osmolality Ur Random Sodium Alcohol, Quantitative EKG/Cardiology Studies: Cardiology / EKG Studies 04/06/18 20:24 EKG [ELECTROCARDIOGRAM] Stat Comment: Reason For Exam: sob Critical Care Progress Note - Nutrition Nutrition: Nutrition Category Date Time Status Heart Healthy Diet [DIET] Diets 04/06/18 Breakfast Active Addendum Addendum: 04/07/18 14:46 ICU Attending Addendum Patient seen and examined. Case reviewed on round with housestaff. Agree with resident note above with the following additions/exceptions: 57 yM with hx of alcohol abuse, CAD, hypertension who presents with 5 days of drinking beer found to be severly hyponatremic likely from beer potomanic given hx, low serum na and low urine osm Patient given 3%NS from ED which increase his NA from 111 to 121. Overnight team stopped 3% and started NS, Na+ came up to 127. Desmopressive given. D5 W ater due to concern for rapid overcorrection of sodium leading to osmotic demylen syndrome. Mental status unchanged, Na controleld now ar 124 -> 123 Nephro on board managing hypo na seriel chem q4 CIWA protocol for etoh withdrawl DVT ppx hep sq no gi ppx indicatoin rest of care above Derrick Yeung MD Insurance Coder Critical Care TIme: 33 mins
[2018-04-07] MEDS ORDERED: Potassium Chloride 20 mEq ER Tab PO STA ×2 (08:58→16:36)
--- NOTE | 2018-04-07 09:34 | RAD ---
Date of service: 04/06/2018 HISTORY: cp COMPARISON: Portable chest 01/04/2018. FINDINGS: LUNGS: Inspiratory volume is somewhat diminished in the interval. Nevertheless, no infiltrate bilaterally. PLEURA: No significant pleural effusion identified, no pneumothorax apparent. CARDIOVASCULAR: Normal. OSSEOUS STRUCTURES: No significant abnormalities. VISUALIZED UPPER ABDOMEN: Stable right hemidiaphragm elevation. OTHER FINDINGS: None. IMPRESSION: No acute infiltrate bilaterally, pleural effusion or pneumothorax. No pulmonary vascular congestion. Diminished inspiratory volume.
--- NOTE | 2018-04-07 10:05 | CP.PCM.CON ---
<Zora Rasmussen - Last Filed: 04/07/18 14:35> History of Present Illness - History of Present Illness History of Present Illness: 57 year old male with a past medical history of alcohol abuse, CAD, hypertension who presents with 5 days of drinking 13 beers each day, without solid intake, nausea, vomiting, and diarrhea. Audio translation was used in obtaining the history given the patient's [place] tongue is [place]. He reports whenever he drinks he has diarrhea. He reports that his vomit has been clear, non-bloody and non-bilois He reports that two weeks ago he tried to quit drinking but had really bad tremors, palpitations, so started drinking again. He denies ever having any seizures in the past from alcohol withdrawal. He admits to feeling weak and "odd" at the time of my examination. He was admitted for PÉREZ and hyponatremia overnight and Nephrology was consulted given his Na corrected to fast from 111 to 127 in 9 hours. He received 30 mls of hypertonic saline, Banana bag 100 mls/hr throughout the night. This morning patient was started on D5W 500 mls/hr and given a total of 4 mcg of DDAVP. PMD: Dr Hester PMHx: HTN, CAD, palpitations, alcohol use disorder PSHx: Cardiac stent 6 years prior SocialHx: Lives alone. Daily alcohol use - 12 beers per day. 4-7 cigarettes for approximately 50 years. 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 Allergies: NKDA Home Meds: Stated he takes 6 different medications but could not recall their names FamHx: Mother (living, no known medical conditions). Father (, no known medical conditions) Review of Systems - Review of Systems All systems: reviewed and no additional remarkable complaints except (as per HPI) Past Patient History - Infectious Disease Hx of Infectious Diseases: None - Tetanus Immunizations Tetanus Immunization: Unknown - Past Social History Smoking Status: Never Smoked - CARDIAC Hx Cardiac Disorders: Yes Hx Congestive Heart Failure: Yes (Paroxymal Afib) Hx Hypertension: Yes - PULMONARY Hx Respiratory Disorders: No - NEUROLOGICAL Hx Neurological Disorder: No - HEENT Hx HEENT Problems: No - RENAL Hx Chronic Kidney Disease: No - ENDOCRINE/METABOLIC Hx Endocrine Disorders: No - HEMATOLOGICAL/ONCOLOGICAL Hx Blood Disorders: No - INTEGUMENTARY Hx Dermatological Problems: No - MUSCULOSKELETAL/RHEUMATOLOGICAL Hx Musculoskeletal Disorders: No - GASTROINTESTINAL Hx Gastrointestinal Disorders: No - GENITOURINARY/GYNECOLOGICAL Hx Genitourinary Disorders: No - PSYCHIATRIC Hx Psychophysiologic Disorder: Yes Hx Depression: Yes Hx Substance Use: No Other/Comment: ETOH ABUSE - SURGICAL HISTORY Hx Cardiac Catheterization: Yes (x1) Hx Coronary Stent: Yes - ANESTHESIA Hx Anesthesia: Yes Hx Anesthesia Reactions: No Hx Malignant Hyperthermia: No Meds Allergies/Adverse Reactions: Allergies Allergy/AdvReac Type Severity Reaction Status Date / Time No Known Allergies Allergy Verified 04/06/18 19:54 - Medications Medications: Current Medications Aspirin (Aspirin Chewable) 81 mg PO DAILY [facility] Last Admin: 04/07/18 09:37 Dose: 81 mg Atorvastatin Calcium (Lipitor) 20 mg PO DIN [facility] Chlordiazepoxide (Librium) 25 mg PO Q6H [facility]; Protocol Stop: 04/07/18 18:01 Last Admin: 04/07/18 05:20 Dose: 25 mg Chlordiazepoxide (Librium) 25 mg PO Q8H [facility]; Protocol Stop: 04/08/18 14:01 Chlordiazepoxide (Librium) 25 mg PO Q12H [facility]; Protocol Stop: 04/09/18 10:01 Chlordiazepoxide (Librium) 25 mg PO Q24H [facility]; Protocol Stop: 04/09/18 22:01 Folic Acid (Folic Acid) 1 mg PO DAILY [facility] Last Admin: 04/07/18 09:36 Dose: 1 mg Dextrose (Dextrose 5% In Water 1000 Ml) 1,000 mls @ 500 mls/hr IV .Q2H [facility] Last Admin: 04/07/18 08:40 Dose: 500 mls/hr Potassium Chloride (Potassium Chloride 10 Meq/100 Ml) 10 meq in 100 mls @ 50 mls/hr IVPB Q2H [facility] Stop: 04/07/18 11:29 Last Admin: 04/07/18 09:33 Dose: 50 mls/hr Calcium Gluconate 1,000 mg/ (Sodium Chloride) 110 mls @ 110 mls/hr IVPB ONCE ONE Stop: 04/07/18 10:14 Last Admin: 04/07/18 09:36 Dose: 110 mls/hr Lorazepam (Ativan) 2 mg IVP Q2H PRN; Protocol PRN Reason: Symptoms of alcohol withdrawl Last Admin: 04/07/18 08:18 Dose: 2 mg Metoprolol Tartrate (Lopressor) 50 mg PO 0800,1800 [facility] Last Admin: 04/07/18 08:13 Dose: 50 mg Ondansetron HCl (Zofran Inj) 4 mg IVP Q6H PRN PRN Reason: Nausea/Vomiting Thiamine HCl (Vitamin B1 Tab) 100 mg PO DAILY [facility] Last Admin: 04/07/18 09:37 Dose: 100 mg Physical Exam - Constitutional Appears: Well, Non-toxic - Head Exam Head Exam: ATRAUMATIC, NORMOCEPHALIC - Eye Exam Eye Exam: EOMI, Normal appearance - ENT Exam ENT Exam: Mucous Membranes Moist - Neck Exam Neck exam: Positive for: Normal Inspection - Respiratory Exam Respiratory Exam: Clear to Auscultation Bilateral, NORMAL BREATHING PATTERN. absent: Accessory Muscle Use - Cardiovascular Exam Cardiovascular Exam: RRR, +S1, +S2 - GI/Abdominal Exam GI & Abdominal Exam: Normal Bowel Sounds, Soft - Extremities Exam Extremities exam: Positive for: normal inspection. Negative for: calf tenderness - Back Exam Back exam: NORMAL INSPECTION. absent: CVA tenderness (L), CVA tenderness (R) - Neurological Exam Neurological exam: Alert, CN II-XII Intact, Oriented x3 - Psychiatric Exam Psychiatric exam: Normal Affect, Normal Mood - Skin Skin Exam: Dry, Intact, Normal Color, Warm Results - Vital Signs Recent Vital Signs: Last Vital Signs Temp 98.9 F 04/07/18 08:50 Pulse 117 H 04/07/18 08:40 Resp 17 04/07/18 08:40 BP 144/78 04/07/18 08:13 Pulse Ox 91 L 04/07/18 08:40 - Labs Result Diagrams: 04/06/18 20:10 04/07/18 12:30 Labs: Laboratory Results - last 24 hr 04/06/18 04/06/18 04/06/18 20:10 20:10 20:10 WBC 5.7 RBC 3.88 Hgb 12.3 L Hct 33.6 L MCV 86.6 MCH 31.7 MCHC 36.6 RDW 12.8 Plt Count 206 MPV 9.8 Gran % 72.6 H Lymph % (Auto) 19.7 L [place] % (Auto) 7.7 H Eos % (Auto) 0.0 L Baso % (Auto) 0.0 Gran # 4.13 Lymph # (Auto) 1.1 L [place] # (Auto) 0.4 Eos # (Auto) 0.0 Baso # (Auto) 0.00 Sodium 111 L* Potassium 3.0 L Chloride 73 L Carbon Dioxide 20 L Anion Gap 21 H BUN 7 Creatinine 0.6 L Est GFR ( Amer) > 60 Est GFR (Non-Af Amer) > 60 Random Glucose 95 Serum Osmolality Calcium 7.3 L Phosphorus Magnesium Total Bilirubin 1.0 AST 134 H D ALT 67 H Alkaline Phosphatase 75 Total Protein 7.0 Albumin 4.0 Globulin 3.0 Albumin/Globulin Ratio 1.3 Lipase Urine Osmolality Ur Random Sodium Alcohol, Quantitative 252 H 04/06/18 04/07/18 04/07/18 20:10 00:05 00:05 WBC RBC Hgb Hct MCV MCH MCHC RDW Plt Count MPV Gran % Lymph % (Auto) [place] % (Auto) Eos % (Auto) Baso % (Auto) Gran # Lymph # (Auto) [place] # (Auto) Eos # (Auto) Baso # (Auto) Sodium Potassium Chloride Carbon Dioxide Anion Gap BUN Creatinine Est GFR ( Amer) Est GFR (Non-Af Amer) Random Glucose Serum Osmolality 289 Calcium Phosphorus Magnesium Total Bilirubin AST ALT Alkaline Phosphatase Total Protein Albumin Globulin Albumin/Globulin Ratio Lipase Urine Osmolality 114 L Ur Random Sodium < 5 Alcohol, Quantitative 04/07/18 04/07/18 04/07/18 01:32 05:30 05:35 WBC RBC Hgb Hct MCV MCH MCHC RDW Plt Count MPV Gran % Lymph % (Auto) [place] % (Auto) Eos % (Auto) Baso % (Auto) Gran # Lymph # (Auto) [place] # (Auto) Eos # (Auto) Baso # (Auto) Sodium 121 L 127 L Potassium 3.2 L 3.2 L Chloride 86 L 94 L Carbon Dioxide 19 L 20 L Anion Gap 19 16 BUN 6 L 4 L Creatinine 0.5 L 0.6 L Est GFR ( Amer) > 60 > 60 Est GFR (Non-Af Amer) > 60 > 60 Random Glucose 82 103 Serum Osmolality Calcium 7.2 L 7.9 L Phosphorus 2.6 Magnesium 2.2 Total Bilirubin AST ALT Alkaline Phosphatase Total Protein Albumin Globulin Albumin/Globulin Ratio Lipase 372 H Urine Osmolality Ur Random Sodium Alcohol, Quantitative Assessment & Plan - Assessment and Plan (Free Text) Assessment: 57 year old male admitted with hyponatremia secondary to 5 day of beer only diet, along with vomiting and diarrhea, and symptoms of alcohol withdrawal symptoms with serum Na of 112 on admission. Will continue with D5W 500 until serum Na is 120 or below, at which point D5W will be reduced to 100 mls/hr. BMP and urine osmoles q2h untill serum Na is 120. We will continue to to follow with you. - Date & Time Date: 04/07/18 Time: 14:40 <Jan Pradhan - Last Filed: 04/08/18 05:49> Meds - Medications Medications: Current Medications Aspirin (Aspirin Chewable) 81 mg PO DAILY [facility] Last Admin: 04/07/18 09:37 Dose: 81 mg Atorvastatin Calcium (Lipitor) 20 mg PO DIN [facility] Last Admin: 04/07/18 17:24 Dose: 20 mg Folic Acid (Folic Acid) 1 mg PO DAILY [facility] Last Admin: 04/07/18 09:36 Dose: 1 mg Heparin Sodium (Porcine) (Heparin) 5,000 units SC Q8 [facility]; Protocol Last Admin: 04/08/18 05:22 Dose: 5,000 units Desmopressin Acetate 4 mcg/ (Sodium Chloride) 51 mls @ 100 mls/hr IV ONCE ONE Stop: 04/08/18 05:53 Dextrose (Dextrose 5% In Water 1000 Ml) 1,000 mls @ 250 mls/hr IV .Q4H [facility] Stop: 04/08/18 07:31 Lorazepam (Ativan) 2 mg IVP Q6H [facility]; Protocol Last Admin: 04/08/18 05:26 Dose: Not Given Lorazepam (Ativan) 1 mg IVP Q1 PRN; Protocol PRN Reason: Anxiety Metoprolol Tartrate (Lopressor) 50 mg PO 0800,1800 [facility] Last Admin: 04/07/18 17:25 Dose: 50 mg Ondansetron HCl (Zofran Inj) 4 mg IVP Q6H PRN PRN Reason: Nausea/Vomiting Pantoprazole Sodium (Protonix Ec Tab) 40 mg PO 0600 [facility] Last Admin: 04/08/18 05:22 Dose: 40 mg Thiamine HCl (Vitamin B1 Tab) 100 mg PO DAILY [facility] Last Admin: 04/07/18 09:37 Dose: 100 mg Results - Vital Signs Recent Vital Signs: Last Vital Signs Temp 98 F 04/07/18 20:00 Pulse 85 04/08/18 05:15 Resp 16 04/08/18 05:15 BP 142/95 H 04/08/18 05:00 Pulse Ox 96 04/08/18 05:00 - Labs Result Diagrams: 04/08/18 04:05 04/08/18 04:05 Labs: Laboratory Results - last 24 hr 04/07/18 04/07/18 04/07/18 05:30 05:30 05:35 WBC RBC Hgb Hct MCV MCH MCHC RDW Plt Count MPV Gran % Lymph % (Auto) [place] % (Auto) Eos % (Auto) Baso % (Auto) Gran # Lymph # (Auto) [place] # (Auto) Eos # (Auto) Baso # (Auto) Sodium 127 L Potassium 3.2 L Chloride 94 L Carbon Dioxide 20 L Anion Gap 16 BUN 4 L Creatinine 0.6 L Est GFR ( Amer) > 60 Est GFR (Non-Af Amer) > 60 Random Glucose 103 Hemoglobin A1c 5.2 Calcium 7.9 L Phosphorus 2.6 Magnesium 2.2 Total Bilirubin AST ALT Alkaline Phosphatase Total Protein Albumin Globulin Albumin/Globulin Ratio Lipase 372 H TSH 3rd Generation Urine Osmolality 04/07/18 04/07/18 04/07/18 09:30 11:23 12:00 WBC RBC Hgb Hct MCV MCH MCHC RDW Plt Count MPV Gran % Lymph % (Auto) [place] % (Auto) Eos % (Auto) Baso % (Auto) Gran # Lymph # (Auto) [place] # (Auto) Eos # (Auto) Baso # (Auto) Sodium 124 L Potassium 3.6 Chloride 93 L Carbon Dioxide 21 Anion Gap 14 BUN 4 L Creatinine 0.6 L Est GFR ( Amer) > 60 Est GFR (Non-Af Amer) > 60 Random Glucose 206 H Hemoglobin A1c Calcium 10.3 Phosphorus Magnesium Total Bilirubin AST ALT Alkaline Phosphatase Total Protein Albumin Globulin Albumin/Globulin Ratio Lipase TSH 3rd Generation 0.46 Urine Osmolality 182 L 04/07/18 04/07/18 04/07/18 12:30 14:00 14:00 WBC RBC Hgb Hct MCV MCH MCHC RDW Plt Count MPV Gran % Lymph % (Auto) [place] % (Auto) Eos % (Auto) Baso % (Auto) Gran # Lymph # (Auto) [place] # (Auto) Eos # (Auto) Baso # (Auto) Sodium 123 L 122 L Potassium 3.9 3.6 Chloride 89 L 91 L Carbon Dioxide 23 20 L Anion Gap 15 14 BUN 6 L 7 Creatinine 0.7 L 0.7 L Est GFR ( Amer) > 60 > 60 Est GFR (Non-Af Amer) > 60 > 60 Random Glucose 158 H 109 Hemoglobin A1c Calcium 8.3 L 8.2 L Phosphorus Magnesium Total Bilirubin AST ALT Alkaline Phosphatase Total Protein Albumin Globulin Albumin/Globulin Ratio Lipase TSH 3rd Generation Urine Osmolality 236 L 04/07/18 04/07/18 04/07/18 15:58 20:45 22:48 WBC RBC Hgb Hct MCV MCH MCHC RDW Plt Count MPV Gran % Lymph % (Auto) [place] % (Auto) Eos % (Auto) Baso % (Auto) Gran # Lymph # (Auto) [place] # (Auto) Eos # (Auto) Baso # (Auto) Sodium 120 L 119 L* Potassium 3.3 L 3.5 L Chloride 88 L 88 L Carbon Dioxide 22 22 Anion Gap 13 13 BUN 6 L 7 Creatinine 0.6 L 0.7 L Est GFR ( Amer) > 60 > 60 Est GFR (Non-Af Amer) > 60 > 60 Random Glucose 144 H 75 Hemoglobin A1c Calcium 7.6 L 7.6 L Phosphorus Magnesium Total Bilirubin AST ALT Alkaline Phosphatase Total Protein Albumin Globulin Albumin/Globulin Ratio Lipase TSH 3rd Generation Urine Osmolality 181 L 04/08/18 04/08/18 04/08/18 00:01 04:05 04:05 WBC 3.8 L D RBC 3.80 Hgb 12.2 L Hct 34.3 L MCV 90.3 D MCH 32.1 MCHC 35.6 RDW 13.2 Plt Count 117 L MPV 9.9 Gran % 60.3 Lymph % (Auto) 29.7 [place] % (Auto) 9.2 H Eos % (Auto) 0.5 L Baso % (Auto) 0.3 Gran # 2.30 Lymph # (Auto) 1.1 L [place] # (Auto) 0.4 Eos # (Auto) 0.0 Baso # (Auto) 0.01 Sodium 121 L 125 L Potassium 3.4 L 3.7 Chloride 90 L 94 L Carbon Dioxide 22 23 Anion Gap 12 12 BUN 6 L 5 L Creatinine 0.7 L 0.6 L Est GFR ( Amer) > 60 > 60 Est GFR (Non-Af Amer) > 60 > 60 Random Glucose 88 84 Hemoglobin A1c Calcium 7.9 L 8.2 L Phosphorus Magnesium 2.1 Total Bilirubin 1.0 AST 94 H D ALT 62 H Alkaline Phosphatase 81 Total Protein 6.6 Albumin 3.5 Globulin 3.1 Albumin/Globulin Ratio 1.1 Lipase TSH 3rd Generation Urine Osmolality Attending/Attestation - Attestation I have personally seen and examined this patient.: Yes I have fully participated in the care of the patient.: Yes I have reviewed all pertinent clinical information: Yes Notes (Text): Patient seen and examined; I agree with the resident's note as above with the following additions/edits: 57 yo M w/ pmh of htn, CAD?, paroxysmal afib, ETOH abuse, presented with vomiting and diarrhea, found to have severe hyponatremia for which nephrology is being consulted; Patient reports persistent vomiting and watery diarrhea over past several days with decreased PO intake; he attributes his symptoms to continued ETOH abuse; patient also with some abdominal pain; In ED, patient was very briefly put on hypertonic saline (for about 1 hr) and then left on "banana bag" in NS at 100 cc/hr; serum Na on presentation 111, increasing to 127 this morning (over ~8 hr period); Given patient's rapid rise in serum Na, etiology of hyponatremia likely due to hypovolemia from GI losses along with inadequate solute intake; Urine osm on presentation not available although suspected to be elevated given his clinical course; urine osm ~4 hrs after presentation had already dropped to 114 due to volume repletion and at that point serum Na would have started to spontaneously correct rapidly upward due to intrinsic ADH being shut off and ensuing rapid (free) water diuresis; Rapid rise in serum Na corrected with total of 4 mcg desmopressin and D5W boluses (between 500-1000 cc/hr); Na at appropriate level this evening; -will continue to monitor closely with overall aim of increasing serum Na no more than 6-8 meq every 24 hrs; -monitor urine osm and serum Na q4h; -need to redose desmopressin if urine osm low; -replenish K prn (aim to keep ~4 given history of paroxysmal afib); Thank you for this referral; we will continue to monitor closely. Critical care time > 35 minutes;
[2018-04-07 10:09] LABS: BLOOD UREA NITROGEN 4 mg/dL (7-21); CALCIUM 10.3 mg/dL (8.4-10.5); GFR NON-AFRICAN AMERICAN > 60
--- NOTE | 2018-04-07 10:15 | CARD ---
APPROVED REPORT Date of service: 04/06/2018 EKG Measurement Heart [id number] [place] [id number] <Conclusion> Sinus rhythm with 1st degree AV block Nonspecific intraventricular conduction delay Poor R Progression V1-V3.
[2018-04-07 12:48] LABS: BLOOD UREA NITROGEN 6 mg/dL (7-21); CALCIUM 8.3 mg/dL (8.4-10.5); GFR NON-AFRICAN AMERICAN > 60
--- NOTE | 2018-04-07 13:03 | CP.PCM.PN ---
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 Pt denies chest pain, or SOB Objective - Vital Signs/Intake and Output Vital Signs (last 24 hours): Temp Pulse Resp BP Pulse Ox 99.8 F H 90 21 144/88 96 04/07/18 11:28 04/07/18 12:20 04/07/18 12:20 04/07/18 12:00 04/07/18 12:20 Intake and Output: 04/07/18 04/07/18 06:59 18:59 Intake Total 1200 Output Total 2800 Balance -1600 - Medications Medications: Current Medications Aspirin (Aspirin Chewable) 81 mg PO DAILY [facility] Last Admin: 04/07/18 09:37 Dose: 81 mg Atorvastatin Calcium (Lipitor) 20 mg PO DIN [facility] Folic Acid (Folic Acid) 1 mg PO DAILY [facility] Last Admin: 04/07/18 09:36 Dose: 1 mg Heparin Sodium (Porcine) (Heparin) 5,000 units SC Q8 [facility]; Protocol Dextrose (Dextrose 5% In Water 1000 Ml) 1,000 mls @ 500 mls/hr IV .Q2H [facility] Last Admin: 04/07/18 12:19 Dose: 500 mls/hr Lorazepam (Ativan) 2 mg IVP Q6H [facility]; Protocol Last Admin: 04/07/18 11:52 Dose: Not Given Lorazepam (Ativan) 1 mg IVP Q1 PRN; Protocol PRN Reason: Anxiety Metoprolol Tartrate (Lopressor) 50 mg PO 0800,1800 [facility] Last Admin: 04/07/18 08:13 Dose: 50 mg Ondansetron HCl (Zofran Inj) 4 mg IVP Q6H PRN PRN Reason: Nausea/Vomiting Pantoprazole Sodium (Protonix Ec Tab) 40 mg PO 0600 [facility] Thiamine HCl (Vitamin B1 Tab) 100 mg PO DAILY [facility] Last Admin: 04/07/18 09:37 Dose: 100 mg - Labs Labs: 04/06/18 20:10 04/07/18 12:30 - Constitutional Appears: No Acute Distress - Head Exam Head Exam: ATRAUMATIC, NORMOCEPHALIC - ENT Exam ENT Exam: Mucous Membranes Moist - Neck Exam Neck Exam: Full ROM - Respiratory Exam Respiratory Exam: Clear to Ausculation Bilateral. absent: Accessory Muscle Use, Rales, Wheezes, Respiratory Distress - Cardiovascular Exam Cardiovascular Exam: Tachycardia, +S1, +S2. absent: Diastolic murmur - GI/Abdominal Exam GI & Abdominal Exam: Soft, Normal Bowel Sounds. absent: Tenderness, Rebound - Extremities Exam Extremities Exam: Full ROM. absent: Calf Tenderness - Neurological Exam Neurological Exam: Alert, Awake - Psychiatric Exam Psychiatric exam: Normal Affect, Normal Mood - Skin Skin Exam: Dry, Intact, Warm Assessment and Plan - Assessment and Plan (Free Text) Assessment: Pt is a 57 year old male with a PMH of CAD s/p stent, alcohol use disorder, HTN, paroxysmal atrial fibrillation, depression, tobacco abuse who presented to our ED for alcohol intoxication and admitted for hyponatremia Plan: Hyponatremia - likely secondary to "beer potomania", renal water retention 2/2 to volume depletion - pt had a similar admission December 2017 - goal is to increase serum Na 6-8 meq over 24 hrs - repeat bmp q4h - monitor to ensure overcorrection does not occur - urine osmolality 185 - urine sodium <5 - follow up TSH Alcohol Withdrawal - last drink 12 hours prior to presentation - serum alcohol 252 on admission - discontinued librium due to elevated LFTs - started ativan 2mg Q6 [facility] - started ativan 1mg Q1 PRN - pt given banana bag - continue D5 - thiamine 100mg po qd, multivitamin, folic acid 1mg po qd - ciwa q4h - seizure precautions, fall precautions, aspiration precautions Hypokalemia - K 3.9, continue to replete - follow-up bmp HTN - resume home metoprolol 50mg po bid - 125/70 Paroxysmal AFib - not in AFib currently - resume home metoprolol 50mg po bid CAD - s/p cardiac stent - aspirin 81mg po qd and atorvastatin 20mg po din for secondary prevention Elevated LFTs - indicative of alcohol use disorder - hepatitis panel in 09/2017 was negative HLD - lipitor 20mg po din PPx - scd's - heart healthy diet Pt seen, examined, assessment and plan discussed with Dr Sandra Pressley PGY1, Internal Medicine Resident <Sweta Flores - Last Filed: 10/11/18 19:05> Objective - Vital Signs/Intake and Output Vital Signs (last 24 hours): Temp Pulse Resp BP Pulse Ox 99.7 F H 95 H 19 137/79 97 04/07/18 17:00 04/07/18 18:00 04/07/18 18:00 04/07/18 18:00 04/07/18 18:00 Intake and Output: 04/07/18 04/07/18 06:59 18:59 Intake Total 1200 9180 Output Total 2800 2000 Balance -1600 7180 - Medications Medications: Current Medications Aspirin (Aspirin Chewable) 81 mg PO DAILY [facility] Last Admin: 04/07/18 09:37 Dose: 81 mg Atorvastatin Calcium (Lipitor) 20 mg PO DIN [facility] Last Admin: 04/07/18 17:24 Dose: 20 mg Folic Acid (Folic Acid) 1 mg PO DAILY [facility] Last Admin: 04/07/18 09:36 Dose: 1 mg Heparin Sodium (Porcine) (Heparin) 5,000 units SC Q8 [facility]; Protocol Last Admin: 04/07/18 13:47 Dose: 5,000 units Dextrose (Dextrose 5% In Water 1000 Ml) 1,000 mls @ 100 mls/hr IV .Q10H [facility] Last Admin: 04/07/18 17:30 Dose: 100 mls/hr Lorazepam (Ativan) 2 mg IVP Q6H [facility]; Protocol Last Admin: 04/07/18 17:24 Dose: 2 mg Lorazepam (Ativan) 1 mg IVP Q1 PRN; Protocol PRN Reason: Anxiety Metoprolol Tartrate (Lopressor) 50 mg PO 0800,1800 [facility] Last Admin: 04/07/18 17:25 Dose: 50 mg Ondansetron HCl (Zofran Inj) 4 mg IVP Q6H PRN PRN Reason: Nausea/Vomiting Pantoprazole Sodium (Protonix Ec Tab) 40 mg PO 0600 [facility] Thiamine HCl (Vitamin B1 Tab) 100 mg PO DAILY [facility] Last Admin: 04/07/18 09:37 Dose: 100 mg - Labs Labs: 04/06/18 20:10 04/07/18 15:58 Attending/Attestation - Attestation I have personally seen and examined this patient.: Yes I have fully participated in the care of the patient.: Yes I have reviewed all pertinent clinical information, including history, physical exam and plan: Yes Notes (Text): 04/07/18 18:58 57 year old male with past medical history of CAD s/p stent, paroxysmal afib, hypertension and alcohol abuse who presented with alcohol intoxication/withdrawal; found to have significant hyponatremia. He was started on hypertonic saline overnight, now discontinued. Continue to monitor sodium closely and adjust fluids as per nephrology. Continue with multivitamin, folic acid and thiamine. Continue with ativan mervat/prn for withdrawal symptoms. He was counselled on alcohol abstinence. Transaminitis likely secondary to chronic etoh abuse. Will continue to monitor and hold statin for now. Sweta Flores MD Hospitalist.
[2018-04-07 14:38] LABS: BLOOD UREA NITROGEN 7 mg/dL (7-21); CALCIUM 8.2 mg/dL (8.4-10.5); GFR NON-AFRICAN AMERICAN > 60
[2018-04-07 16:15] LABS: BLOOD UREA NITROGEN 6 mg/dL (7-21); CALCIUM 7.6 mg/dL (8.4-10.5); GFR NON-AFRICAN AMERICAN > 60
[2018-04-07 21:16] LABS: BLOOD UREA NITROGEN 7 mg/dL (7-21); CALCIUM 7.6 mg/dL (8.4-10.5); GFR NON-AFRICAN AMERICAN > 60
[2018-04-07] MEDS ORDERED: Potassium Chloride 20 mEq ER Tab PO ONE (21:18)
[2018-04-08 00:32] LABS: BLOOD UREA NITROGEN 6 mg/dL (7-21); CALCIUM 7.9 mg/dL (8.4-10.5); GFR NON-AFRICAN AMERICAN > 60
[2018-04-08] MEDS ORDERED: Potassium Chloride 20 mEq ER Tab PO ONE ×2 (00:35→19:09)
[2018-04-08 04:19] LABS: BASO # 0.01 K/mm3 (0.0-2.0); BASO % 0.3 % (0.0-3.0); EOS % 0.5 % (1.5-5.0); GRAN # 2.3 (1.4-6.5); GRAN % 60.3 % (50.0-68.0); HEMOGLOBIN 12.2 g/dL (14.0-18.0); LYMPH # 1.1 (1.2-3.4); LYMPH % 29.7 % (22.0-35.0); MEAN CORPUSCULAR HEMOGLOBIN 32.1 pg (25.0-35.0); MEAN CORPUSCULAR HGB CONC 35.6 g/dl (31.0-37.0); MEAN PLATELET VOLUME 9.9 fl (7.0-11.0); MONO # 0.4 (0.1-0.6); MONO % 9.2 % (1.0-6.0); RBC 3.8 10^6/uL (3.5-6.1); RED CELL DISTRIBUTION WIDTH 13.2 % (11.5-14.5); WHITE BLOOD COUNT 3.8 10^3/ul (4.5-11.0)
[2018-04-08 04:24] LABS: MEAN CELL VOLUME 90.3 fl (80.0-105.0)
[2018-04-08 04:54] LABS: ALB/GLOB RATIO 1.1 (1.1-1.8); ALBUMIN 3.5 g/dL (3.0-4.8); ALT/SGPT 62 U/L (7-56); AST/SGOT 94 U/L (17-59); BLOOD UREA NITROGEN 5 mg/dL (7-21); CALCIUM 8.2 mg/dL (8.4-10.5); GFR NON-AFRICAN AMERICAN > 60
[2018-04-08] MEDS: Pantoprazole 40 mg EC Tab PO SCH (05:22)
--- NOTE | 2018-04-08 07:10 | CP.PCM.PN ---
<Zora Rasmussen - Last Filed: 04/08/18 07:04> Subjective - Date & Time of Evaluation Date of Evaluation: 04/08/18 Time of Evaluation: 07:04 - Subjective Subjective: Zora Rasmussen DO, PGY-2: Nephrology Progress Note for Dr. Pradhan Patient seen and examined at bedside. Resting comfortably. No adverse events per ICU team. Patient denies any vomiting, diarrhea, or headache. Objective - Vital Signs/Intake and Output Vital Signs (last 24 hours): Temp Pulse Resp BP Pulse Ox 98 F 79 16 142/95 H 96 04/07/18 20:00 04/08/18 06:00 04/08/18 05:15 04/08/18 05:00 04/08/18 05:00 Intake and Output: 04/08/18 04/08/18 06:59 18:59 Intake Total 1000 Output Total 3500 Balance -2500 - Medications Medications: Current Medications Aspirin (Aspirin Chewable) 81 mg PO DAILY [facility] Last Admin: 04/07/18 09:37 Dose: 81 mg Atorvastatin Calcium (Lipitor) 20 mg PO DIN [facility] Last Admin: 04/07/18 17:24 Dose: 20 mg Folic Acid (Folic Acid) 1 mg PO DAILY [facility] Last Admin: 04/07/18 09:36 Dose: 1 mg Heparin Sodium (Porcine) (Heparin) 5,000 units SC Q8 [facility]; Protocol Last Admin: 04/08/18 05:22 Dose: 5,000 units Dextrose (Dextrose 5% In Water 1000 Ml) 1,000 mls @ 250 mls/hr IV .Q4H [facility] Stop: 04/08/18 07:31 Last Admin: 04/08/18 06:09 Dose: 250 mls/hr Lorazepam (Ativan) 2 mg IVP Q6H [facility]; Protocol Last Admin: 04/08/18 05:26 Dose: Not Given Lorazepam (Ativan) 1 mg IVP Q1 PRN; Protocol PRN Reason: Anxiety Metoprolol Tartrate (Lopressor) 50 mg PO 0800,1800 [facility] Last Admin: 04/07/18 17:25 Dose: 50 mg Ondansetron HCl (Zofran Inj) 4 mg IVP Q6H PRN PRN Reason: Nausea/Vomiting Pantoprazole Sodium (Protonix Ec Tab) 40 mg PO 0600 [facility] Last Admin: 04/08/18 05:22 Dose: 40 mg Thiamine HCl (Vitamin B1 Tab) 100 mg PO DAILY [facility] Last Admin: 04/07/18 09:37 Dose: 100 mg - Labs Labs: 04/08/18 04:05 04/08/18 04:05 - Constitutional Appears: Well, Non-toxic - Head Exam Head Exam: ATRAUMATIC, NORMOCEPHALIC - Eye Exam Eye Exam: EOMI, Normal appearance - ENT Exam ENT Exam: Mucous Membranes Moist - Neck Exam Neck Exam: Normal Inspection - Respiratory Exam Respiratory Exam: Clear to Ausculation Bilateral, NORMAL BREATHING PATTERN. absent: Accessory Muscle Use - Cardiovascular Exam Cardiovascular Exam: RRR, +S1, +S2 - GI/Abdominal Exam GI & Abdominal Exam: Soft, Normal Bowel Sounds - Extremities Exam Extremities Exam: Normal Inspection. absent: Calf Tenderness - Neurological Exam Neurological Exam: Alert, Awake, Oriented x3 - Psychiatric Exam Psychiatric exam: Normal Affect, Normal Mood - Skin Skin Exam: Dry, Intact, Normal Color, Warm Assessment and Plan - Assessment and Plan (Free Text) Assessment: 57 year old male with a past medical history of alcohol abuse, paroxysmal atrial fibrillation, who presented after a 5 day beer binge with associated nausea, vomting, diarrhea and was admitted for impending alcohol withdrawal symptoms and a serum Na 112. In the last 24 hours patient reached goal of 120. Overnight patient was placed on 3% NS at 15 mls/hr and serum Na deonna to 126 this morning. Desmopressin given at 5:53 AM and patient was started on D5W at 250 with BMP and urine osmoles q4h. Goal of correction is for a serum Na of 126 at 21:00 today at 04/08/18. We will continue to monitor this patient closely. <Jan Pradhan - Last Filed: 04/09/18 07:54> Objective - Vital Signs/Intake and Output Vital Signs (last 24 hours): Temp Pulse Resp BP Pulse Ox 98.9 F 80 18 159/104 H 87 L 04/08/18 11:00 04/08/18 21:38 04/08/18 10:51 04/08/18 21:38 04/08/18 10:44 Intake and Output: 04/09/18 04/09/18 06:59 18:59 Intake Total 960 Output Total 1000 Balance -40 - Medications Medications: Current Medications Aspirin (Aspirin Chewable) 81 mg PO DAILY [facility] Last Admin: 04/08/18 09:47 Dose: 81 mg Atorvastatin Calcium (Lipitor) 20 mg PO DIN [facility] Last Admin: 04/07/18 17:24 Dose: 20 mg Folic Acid (Folic Acid) 1 mg PO DAILY [facility] Last Admin: 04/08/18 09:48 Dose: 1 mg Heparin Sodium (Porcine) (Heparin) 5,000 units SC Q8 [facility]; Protocol Last Admin: 04/09/18 06:55 Dose: 5,000 units Lorazepam (Ativan) 1 mg IVP Q1 PRN; Protocol PRN Reason: Anxiety Lorazepam (Ativan) 1 mg IVP Q6H [facility]; Protocol Last Admin: 04/09/18 05:56 Dose: 1 mg Metoprolol Tartrate (Lopressor) 50 mg PO 0800,1800 [facility] Last Admin: 04/08/18 18:48 Dose: 50 mg Ondansetron HCl (Zofran Inj) 4 mg IVP Q6H PRN PRN Reason: Nausea/Vomiting Pantoprazole Sodium (Protonix Ec Tab) 40 mg PO 0600 [facility] Last Admin: 04/09/18 06:50 Dose: 40 mg Sodium Chloride (Sodium Chloride Tab) 2 gm PO Q8H [facility] Last Admin: 04/09/18 07:40 Dose: 2 gm Thiamine HCl (Vitamin B1 Tab) 100 mg PO DAILY [facility] Last Admin: 04/08/18 09:47 Dose: 100 mg - Labs Labs: 04/09/18 06:30 04/08/18 16:58 Attending/Attestation - Attestation I have personally seen and examined this patient.: Yes I have fully participated in the care of the patient.: Yes I have reviewed all pertinent clinical information, including history, physical exam and plan: Yes Notes (Text): Patient seen and examined; I agree with the resident's note as above with the following additions/edits: 57 yo M w/ pmh of htn, CAD?, paroxysmal afib, ETOH abuse, presented with vomiting and diarrhea, found to have severe hyponatremia for which nephrology is following; Patient denies any more vomiting; tolerating diet; 4 mcg desmopressin given y esterday but was relatively short lived; repeat urine osm this morning again appropriately very low and hence desmopressin 4 mcg re-dosed and 500 cc D5W given to raise urine osm and hence lower the overall rate of rise of serum Na; Na 123 this evening; at safe level of overall rise (6-8 meq over 24 hrs); holding further IVF; will give salt tabs 2 g q8h to help partially offset effect of desmopressin; -Continue 1500 cc fluid restriction;
--- NOTE | 2018-04-08 08:40 | CP.CCUPN ---
<Jemal Perdomo - Last Filed: 04/08/18 12:05> CCU Subjective - Physician Review Subjective (Free Text): Jemal Perdomo DO, PGY-1 ICU Progress Note for Dr. Isma Yeung Patient was seen and examined at bedside this AM with Telugu risk analyst used. He reports feeling well this AM without nausea/vomiting. He didn't have any tremors or other withdrawal symptoms last night and required no ativan. CCU Objective - Vital Signs / Intake & Output Vital Signs (Last 4 hours): Vital Signs Pulse Resp BP Pulse Ox 04/08/18 07:45 90 23 04/08/18 07:44 89 18 04/08/18 07:43 88 22 04/08/18 07:42 92 H 23 04/08/18 07:41 97 H 36 H 04/08/18 07:40 93 H 25 H 04/08/18 07:39 94 H 17 04/08/18 07:37 90 21 04/08/18 07:36 91 H 17 04/08/18 07:35 90 20 04/08/18 07:34 91 H 20 04/08/18 07:33 96 H 23 04/08/18 07:32 89 24 04/08/18 07:31 91 H 21 04/08/18 07:30 98 H 04/08/18 07:20 80 17 76 L 04/08/18 07:10 82 16 75 L 04/08/18 07:02 83 15 04/08/18 07:01 84 15 04/08/18 07:00 157/88 H 04/08/18 06:59 78 17 04/08/18 06:58 76 16 04/08/18 06:57 80 15 04/08/18 06:56 79 14 04/08/18 06:55 79 16 04/08/18 06:54 78 17 04/08/18 06:53 78 18 04/08/18 06:52 82 15 04/08/18 06:51 78 17 04/08/18 06:50 84 16 04/08/18 06:49 81 15 04/08/18 06:48 82 15 04/08/18 06:47 98 H 28 H 04/08/18 06:46 75 15 04/08/18 06:45 76 15 04/08/18 06:44 81 15 04/08/18 06:43 82 17 10/12/18 06:42 79 17 04/08/18 06:41 79 15 04/08/18 06:40 74 18 04/08/18 06:39 78 16 04/08/18 06:38 81 15 04/08/18 06:00 79 04/08/18 05:15 85 16 04/08/18 05:14 84 17 04/08/18 05:13 84 16 04/08/18 05:12 84 18 04/08/18 05:11 89 17 04/08/18 05:10 85 16 04/08/18 05:09 86 16 04/08/18 05:08 93 H 19 04/08/18 05:07 83 21 04/08/18 05:06 109 H 27 H 04/08/18 05:05 94 H 13 04/08/18 05:04 89 18 04/08/18 05:03 84 22 04/08/18 05:02 86 16 04/08/18 05:01 87 18 04/08/18 05:00 82 16 142/95 H 96 04/08/18 04:59 84 17 04/08/18 04:58 87 17 04/08/18 04:57 86 16 04/08/18 04:56 86 16 04/08/18 04:55 86 16 04/08/18 04:54 86 17 04/08/18 04:53 85 17 04/08/18 04:52 86 16 04/08/18 04:51 83 17 04/08/18 04:50 86 17 04/08/18 04:49 83 17 04/08/18 04:48 83 16 04/08/18 04:47 83 17 04/08/18 04:46 85 15 04/08/18 04:45 84 20 04/08/18 04:44 85 17 04/08/18 04:43 83 19 04/08/18 04:42 84 17 04/08/18 04:41 82 19 04/08/18 04:40 85 17 04/08/18 04:39 84 17 04/08/18 04:38 83 17 Intake and Output (Last 8hrs): Intake & Output 04/07/18 04/08/18 04/08/18 22:59 06:59 14:59 Intake Total 9180 1000 Output Total 2000 3500 Balance 7180 -2500 Weight 174 lb 4 oz Intake: IV 7900 300 Right Hand 7900 300 Oral 1280 700 Output: Urine 1999 3500 Urine, Voided 1999 3500 Other: # Voids Urine, Voided 4 # Bowel Movements 5 1 - Physical Exam Head: Positive for: Atraumatic, Normocephalic Pupils: Positive for: PERRL Extroacular Muscles: Positive for: EOMI Conjunctiva: Positive for: Normal Mouth: Positive for: Moist Mucous Membranes, Other (missing teeth, poor oral hygiene) Pharnyx: Positive for: Normal. Negative for: ERYTHEMA, EXUDATE Neck: Positive for: Normal Range of Motion Respiratory/Chest: Positive for: Clear to Auscultation, Good Air Exchange. Negative for: Respiratory Distress, Accessory Muscle Use, Wheezes, Rales, Rhonchi Cardiovascular: Positive for: Regular Rate and Rhythm, Normal S1, S2. Negative for: Murmurs, Rub, Gallop Abdomen: Negative for: Tenderness, Distention, Rebound, Guarding Back: Positive for: Normal Inspection Upper Extremity: Positive for: Normal Inspection. Negative for: Cyanosis, Edema Lower Extremity: Positive for: Normal Inspection. Negative for: Edema Neurological: Positive for: GCS=15, Speech Normal, Motor Func Grossly Intact Skin: Positive for: Warm, Dry, Normal Color. Negative for: Rashes Psychiatric: Positive for: Alert, Oriented x 3 - Medications Active Medications: Active Medications Generic Name Dose Route Start Last Admin Trade Name Freq PRN Reason Stop Dose Admin Aspirin 81 mg 04/07/18 10:00 04/07/18 09:37 Aspirin Chewable PO 81 mg DAILY [facility] Administration Atorvastatin Calcium 20 mg 04/07/18 17:00 04/07/18 17:24 Lipitor PO 20 mg DIN [facility] Administration Folic Acid 1 mg 04/07/18 10:00 04/07/18 09:36 Folic Acid PO 1 mg DAILY [facility] Administration Heparin Sodium (Porcine) 5,000 units 04/07/18 14:00 04/08/18 05:22 Heparin SC 5,000 units Q8 [facility] Administration Protocol Lorazepam 2 mg 04/07/18 11:45 04/08/18 05:26 Ativan IVP Not Given Q6H [facility] Protocol Lorazepam 1 mg 04/07/18 11:45 Ativan IVP Q1 PRN Anxiety Protocol Metoprolol Tartrate 50 mg 04/07/18 08:00 04/07/18 17:25 Lopressor PO 50 mg 0800,1800 [facility] Administration Ondansetron HCl 4 mg 04/06/18 22:07 Zofran Inj IVP Q6H PRN Nausea/Vomiting Pantoprazole Sodium 40 mg 04/08/18 06:00 04/08/18 05:22 Protonix Ec Tab PO 40 mg 0600 [facility] Administration Thiamine HCl 100 mg 04/07/18 10:00 04/07/18 09:37 Vitamin B1 Tab PO 100 mg DAILY [facility] Administration - Patient Studies Lab Studies: Lab Studies 04/08/18 04/08/18 04/08/18 Range/Units 04:05 04:05 00:01 WBC 3.8 L D (4.5-11.0) 10^3/ul RBC 3.80 (3.5-6.1) 10^6/uL Hgb 12.2 L (14.0-18.0) g/dL Hct 34.3 L (42.0-52.0) % MCV 90.3 D (80.0-105.0) fl MCH 32.1 (25.0-35.0) pg MCHC 35.6 (31.0-37.0) g/dl RDW 13.2 (11.5-14.5) % Plt Count 117 L (120.0-450.0) 10^3/uL MPV 9.9 (7.0-11.0) fl Gran % 60.3 (50.0-68.0) % Lymph % (Auto) 29.7 (22.0-35.0) % [place] % (Auto) 9.2 H (1.0-6.0) % Eos % (Auto) 0.5 L (1.5-5.0) % Baso % (Auto) 0.3 (0.0-3.0) % Gran # 2.30 (1.4-6.5) Lymph # (Auto) 1.1 L (1.2-3.4) [place] # (Auto) 0.4 (0.1-0.6) Eos # (Auto) 0.0 (0.0-0.7) Baso # (Auto) 0.01 (0.0-2.0) K/mm3 Sodium 125 L 121 L (132-148) mmol/L Potassium 3.7 3.4 L (3.6-5.0) mmol/L Chloride 94 L 90 L (98-107) mmol/L Carbon Dioxide 23 22 (21-33) mmol/L Anion Gap 12 12 (10-20) BUN 5 L 6 L (7-21) mg/dL Creatinine 0.6 L 0.7 L (0.8-1.5) mg/dl Est GFR ( Amer) > 60 > 60 Est GFR (Non-Af Amer) > 60 > 60 Random Glucose 84 88 (70-110) mg/dL Hemoglobin A1c (4.2-6.5) % Calcium 8.2 L 7.9 L (8.4-10.5) mg/dL Magnesium 2.1 (1.7-2.2) mg/dL Total Bilirubin 1.0 (0.2-1.3) mg/dL AST 94 H D (17-59) U/L ALT 62 H (7-56) U/L Alkaline Phosphatase 81 (38-126) U/L Total Protein 6.6 (5.8-8.3) g/dL Albumin 3.5 (3.0-4.8) g/dL Globulin 3.1 gm/dL Albumin/Globulin Ratio 1.1 (1.1-1.8) Lipase (23-300) U/L TSH 3rd Generation (0.46-4.68) mIU/mL Urine Osmolality (300-1000) mosm/kg 04/07/18 04/07/18 04/07/18 Range/Units 22:48 20:45 15:58 WBC (4.5-11.0) 10^3/ul RBC (3.5-6.1) 10^6/uL Hgb (14.0-18.0) g/dL Hct (42.0-52.0) % MCV (80.0-105.0) fl MCH (25.0-35.0) pg MCHC (31.0-37.0) g/dl RDW (11.5-14.5) % Plt Count (120.0-450.0) 10^3/uL MPV (7.0-11.0) fl Gran % (50.0-68.0) % Lymph % (Auto) (22.0-35.0) % [place] % (Auto) (1.0-6.0) % Eos % (Auto) (1.5-5.0) % Baso % (Auto) (0.0-3.0) % Gran # (1.4-6.5) Lymph # (Auto) (1.2-3.4) [place] # (Auto) (0.1-0.6) Eos # (Auto) (0.0-0.7) Baso # (Auto) (0.0-2.0) K/mm3 Sodium 119 L* 120 L (132-148) mmol/L Potassium 3.5 L 3.3 L (3.6-5.0) mmol/L Chloride 88 L 88 L (98-107) mmol/L Carbon Dioxide 22 22 (21-33) mmol/L Anion Gap 13 13 (10-20) BUN 7 6 L (7-21) mg/dL Creatinine 0.7 L 0.6 L (0.8-1.5) mg/dl Est GFR ( Amer) > 60 > 60 Est GFR (Non-Af Amer) > 60 > 60 Random Glucose 75 144 H (70-110) mg/dL Hemoglobin A1c (4.2-6.5) % Calcium 7.6 L 7.6 L (8.4-10.5) mg/dL Magnesium (1.7-2.2) mg/dL Total Bilirubin (0.2-1.3) mg/dL AST (17-59) U/L ALT (7-56) U/L Alkaline Phosphatase (38-126) U/L Total Protein (5.8-8.3) g/dL Albumin (3.0-4.8) g/dL Globulin gm/dL Albumin/Globulin Ratio (1.1-1.8) Lipase (23-300) U/L TSH 3rd Generation (0.46-4.68) mIU/mL Urine Osmolality 181 L (300-1000) mosm/kg 04/07/18 04/07/18 04/07/18 Range/Units 14:00 14:00 12:30 WBC (4.5-11.0) 10^3/ul RBC (3.5-6.1) 10^6/uL Hgb (14.0-18.0) g/dL Hct (42.0-52.0) % MCV (80.0-105.0) fl MCH (25.0-35.0) pg MCHC (31.0-37.0) g/dl RDW (11.5-14.5) % Plt Count (120.0-450.0) 10^3/uL MPV (7.0-11.0) fl Gran % (50.0-68.0) % Lymph % (Auto) (22.0-35.0) % [place] % (Auto) (1.0-6.0) % Eos % (Auto) (1.5-5.0) % Baso % (Auto) (0.0-3.0) % Gran # (1.4-6.5) Lymph # (Auto) (1.2-3.4) [place] # (Auto) (0.1-0.6) Eos # (Auto) (0.0-0.7) Baso # (Auto) (0.0-2.0) K/mm3 Sodium 122 L 123 L (132-148) mmol/L Potassium 3.6 3.9 (3.6-5.0) mmol/L Chloride 91 L 89 L (98-107) mmol/L Carbon Dioxide 20 L 23 (21-33) mmol/L Anion Gap 14 15 (10-20) BUN 7 6 L (7-21) mg/dL Creatinine 0.7 L 0.7 L (0.8-1.5) mg/dl Est GFR ( Amer) > 60 > 60 Est GFR (Non-Af Amer) > 60 > 60 Random Glucose 109 158 H (70-110) mg/dL Hemoglobin A1c (4.2-6.5) % Calcium 8.2 L 8.3 L (8.4-10.5) mg/dL Magnesium (1.7-2.2) mg/dL Total Bilirubin (0.2-1.3) mg/dL AST (17-59) U/L ALT (7-56) U/L Alkaline Phosphatase (38-126) U/L Total Protein (5.8-8.3) g/dL Albumin (3.0-4.8) g/dL Globulin gm/dL Albumin/Globulin Ratio (1.1-1.8) Lipase (23-300) U/L TSH 3rd Generation (0.46-4.68) mIU/mL Urine Osmolality 236 L (300-1000) mosm/kg 04/07/18 04/07/18 04/07/18 Range/Units 12:00 11:23 09:30 WBC (4.5-11.0) 10^3/ul RBC (3.5-6.1) 10^6/uL Hgb (14.0-18.0) g/dL Hct (42.0-52.0) % MCV (80.0-105.0) fl MCH (25.0-35.0) pg MCHC (31.0-37.0) g/dl RDW (11.5-14.5) % Plt Count (120.0-450.0) 10^3/uL MPV (7.0-11.0) fl Gran % (50.0-68.0) % Lymph % (Auto) (22.0-35.0) % [place] % (Auto) (1.0-6.0) % Eos % (Auto) (1.5-5.0) % Baso % (Auto) (0.0-3.0) % Gran # (1.4-6.5) Lymph # (Auto) (1.2-3.4) [place] # (Auto) (0.1-0.6) Eos # (Auto) (0.0-0.7) Baso # (Auto) (0.0-2.0) K/mm3 Sodium 124 L (132-148) mmol/L Potassium 3.6 (3.6-5.0) mmol/L Chloride 93 L (98-107) mmol/L Carbon Dioxide 21 (21-33) mmol/L Anion Gap 14 (10-20) BUN 4 L (7-21) mg/dL Creatinine 0.6 L (0.8-1.5) mg/dl Est GFR ( Amer) > 60 Est GFR (Non-Af Amer) > 60 Random Glucose 206 H (70-110) mg/dL Hemoglobin A1c (4.2-6.5) % Calcium 10.3 (8.4-10.5) mg/dL Magnesium (1.7-2.2) mg/dL Total Bilirubin (0.2-1.3) mg/dL AST (17-59) U/L ALT (7-56) U/L Alkaline Phosphatase (38-126) U/L Total Protein (5.8-8.3) g/dL Albumin (3.0-4.8) g/dL Globulin gm/dL Albumin/Globulin Ratio (1.1-1.8) Lipase (23-300) U/L TSH 3rd Generation 0.46 (0.46-4.68) mIU/mL Urine Osmolality 182 L (300-1000) mosm/kg 04/07/18 04/07/18 Range/Units 05:35 05:30 WBC (4.5-11.0) 10^3/ul RBC (3.5-6.1) 10^6/uL Hgb (14.0-18.0) g/dL Hct (42.0-52.0) % MCV (80.0-105.0) fl MCH (25.0-35.0) pg MCHC (31.0-37.0) g/dl RDW (11.5-14.5) % Plt Count (120.0-450.0) 10^3/uL MPV (7.0-11.0) fl Gran % (50.0-68.0) % Lymph % (Auto) (22.0-35.0) % [place] % (Auto) (1.0-6.0) % Eos % (Auto) (1.5-5.0) % Baso % (Auto) (0.0-3.0) % Gran # (1.4-6.5) Lymph # (Auto) (1.2-3.4) [place] # (Auto) (0.1-0.6) Eos # (Auto) (0.0-0.7) Baso # (Auto) (0.0-2.0) K/mm3 Sodium (132-148) mmol/L Potassium (3.6-5.0) mmol/L Chloride (98-107) mmol/L Carbon Dioxide (21-33) mmol/L Anion Gap (10-20) BUN (7-21) mg/dL Creatinine (0.8-1.5) mg/dl Est GFR ( Amer) Est GFR (Non-Af Amer) Random Glucose (70-110) mg/dL Hemoglobin A1c 5.2 (4.2-6.5) % Calcium (8.4-10.5) mg/dL Magnesium (1.7-2.2) mg/dL Total Bilirubin (0.2-1.3) mg/dL AST (17-59) U/L ALT (7-56) U/L Alkaline Phosphatase (38-126) U/L Total Protein (5.8-8.3) g/dL Albumin (3.0-4.8) g/dL Globulin gm/dL Albumin/Globulin Ratio (1.1-1.8) Lipase 372 H (23-300) U/L TSH 3rd Generation (0.46-4.68) mIU/mL Urine Osmolality (300-1000) mosm/kg Laboratory Results - last 24 hr 04/07/18 04/07/18 04/07/18 05:30 05:35 09:30 WBC RBC Hgb Hct MCV MCH MCHC RDW Plt Count MPV Gran % Lymph % (Auto) [place] % (Auto) Eos % (Auto) Baso % (Auto) Gran # Lymph # (Auto) [place] # (Auto) Eos # (Auto) Baso # (Auto) Sodium 124 L Potassium 3.6 Chloride 93 L Carbon Dioxide 21 Anion Gap 14 BUN 4 L Creatinine 0.6 L Est GFR ( Amer) > 60 Est GFR (Non-Af Amer) > 60 Random Glucose 206 H Hemoglobin A1c 5.2 Calcium 10.3 Magnesium Total Bilirubin AST ALT Alkaline Phosphatase Total Protein Albumin Globulin Albumin/Globulin Ratio Lipase 372 H TSH 3rd Generation Urine Osmolality 04/07/18 04/07/18 04/07/18 11:23 12:00 12:30 WBC RBC Hgb Hct MCV MCH MCHC RDW Plt Count MPV Gran % Lymph % (Auto) [place] % (Auto) Eos % (Auto) Baso % (Auto) Gran # Lymph # (Auto) [place] # (Auto) Eos # (Auto) Baso # (Auto) Sodium 123 L Potassium 3.9 Chloride 89 L Carbon Dioxide 23 Anion Gap 15 BUN 6 L Creatinine 0.7 L Est GFR ( Amer) > 60 Est GFR (Non-Af Amer) > 60 Random Glucose 158 H Hemoglobin A1c Calcium 8.3 L Magnesium Total Bilirubin AST ALT Alkaline Phosphatase Total Protein Albumin Globulin Albumin/Globulin Ratio Lipase TSH 3rd Generation 0.46 Urine Osmolality 182 L 04/07/18 04/07/18 04/07/18 14:00 14:00 15:58 WBC RBC Hgb Hct MCV MCH MCHC RDW Plt Count MPV Gran % Lymph % (Auto) [place] % (Auto) Eos % (Auto) Baso % (Auto) Gran # Lymph # (Auto) [place] # (Auto) Eos # (Auto) Baso # (Auto) Sodium 122 L 120 L Potassium 3.6 3.3 L Chloride 91 L 88 L Carbon Dioxide 20 L 22 Anion Gap 14 13 BUN 7 6 L Creatinine 0.7 L 0.6 L Est GFR ( Amer) > 60 > 60 Est GFR (Non-Af Amer) > 60 > 60 Random Glucose 109 144 H Hemoglobin A1c Calcium 8.2 L 7.6 L Magnesium Total Bilirubin AST ALT Alkaline Phosphatase Total Protein Albumin Globulin Albumin/Globulin Ratio Lipase TSH 3rd Generation Urine Osmolality 236 L 04/07/18 04/07/18 04/08/18 20:45 22:48 00:01 WBC RBC Hgb Hct MCV MCH MCHC RDW Plt Count MPV Gran % Lymph % (Auto) [place] % (Auto) Eos % (Auto) Baso % (Auto) Gran # Lymph # (Auto) [place] # (Auto) Eos # (Auto) Baso # (Auto) Sodium 119 L* 121 L Potassium 3.5 L 3.4 L Chloride 88 L 90 L Carbon Dioxide 22 22 Anion Gap 13 12 BUN 7 6 L Creatinine 0.7 L 0.7 L Est GFR ( Amer) > 60 > 60 Est GFR (Non-Af Amer) > 60 > 60 Random Glucose 75 88 Hemoglobin A1c Calcium 7.6 L 7.9 L Magnesium Total Bilirubin AST ALT Alkaline Phosphatase Total Protein Albumin Globulin Albumin/Globulin Ratio Lipase TSH 3rd Generation Urine Osmolality 181 L 04/08/18 04/08/18 04:05 04:05 WBC 3.8 L D RBC 3.80 Hgb 12.2 L Hct 34.3 L MCV 90.3 D MCH 32.1 MCHC 35.6 RDW 13.2 Plt Count 117 L MPV 9.9 Gran % 60.3 Lymph % (Auto) 29.7 [place] % (Auto) 9.2 H Eos % (Auto) 0.5 L Baso % (Auto) 0.3 Gran # 2.30 Lymph # (Auto) 1.[address] [place] # (Auto) 0.4 Eos # (Auto) 0.0 Baso # (Auto) 0.01 Sodium 125 L Potassium 3.7 Chloride 94 L Carbon Dioxide 23 Anion Gap 12 BUN 5 L Creatinine 0.6 L Est GFR ( Amer) > 60 Est GFR (Non-Af Amer) > 60 Random Glucose 84 Hemoglobin A1c Calcium 8.2 L Magnesium 2.1 Total Bilirubin 1.0 AST 94 H D ALT 62 H Alkaline Phosphatase 81 Total Protein 6.6 Albumin 3.5 Globulin 3.1 Albumin/Globulin Ratio 1.1 Lipase TSH 3rd Generation Urine Osmolality Review of Systems - Constitutional Constitutional: absent: Fever, Chills - EENT Eyes: absent: Blurred Vision - Cardiovascular Cardiovascular: absent: Chest Pain, Dyspnea - Respiratory Respiratory: absent: Cough, Dyspnea - Gastrointestinal Gastrointestinal: absent: Abdominal Pain, Nausea, Vomiting Critical Care Progress Note - Nutrition Nutrition: Nutrition Category Date Time Status Heart Healthy Diet [DIET] Diets 04/06/18 Breakfast Active Assessment/Plan - Assessment and Plan (Free Text) Assessment: 57 yo M with PMH of HTN, CAD, and chronic alcoholism presents with severe hyponatremia 2/2 excessive beer drinking and inadequate oral intake. Plan: Neuro: A/o x 3 currently No tremors or other withdrawal signs on PE currently Monitor closely for withdrawal symptoms WA protocol Re-orient as necessary Cardio: RRR, normotensive Maintain MAP > 65 Stable for transfer to med/surg Pulm: CTA b/l, no signs of respiratory distress Currently SpO2 > 95% on room air Supp O2 NC PRN /Nephro: Hyponatremia, hypokalemia on admission Hypertonic saline followed by NS given in ED Correction rate was too rapid Two doses of DDAVP given Now on D5W @ 500 cc/hr alone Repeat Na at 2000 last night (24 hours from initial presentation) was 118 from 111 on initial presentation Now up to 124 at 0830 Nephrology following, recs appreciated GI: Currently tolerating HHD without n/v Monitor Na closely ID: Afebrile, no leukocytosis Monitor for s/sx of infection Heme/Onc: H/h stable at 12.2/34.3 Continue to monitor H/h and for s/sx of HD compromise GI/DVT PPX: Protonix and SC heparin Full Code Transfer to med/surg Case and plan reviewed and discussed with my attending Dr. Isma Perdomo, IM Resident PGY-1 <Derrick Yeung - Last Filed: 04/08/18 15:38> CCU Objective - Vital Signs / Intake & Output Intake and Output (Last 8hrs): Intake & Output 04/08/18 04/08/18 04/08/18 06:59 14:59 22:59 Intake Total 1000 640 Output Total 3500 850 Balance -2500 -210 Weight 79.038 kg Intake: IV 300 Right Hand 300 Oral 700 640 Output: Urine 3500 850 Urine, Voided 3500 850 Other: # Voids Urine, Voided 4 # Bowel Movements 1 1 - Medications Active Medications: Active Medications Generic Name Dose Route Start Last Admin Trade Name Freq PRN Reason Stop Dose Admin Aspirin 81 mg 04/07/18 10:00 04/08/18 09:47 Aspirin Chewable PO 81 mg DAILY [facility] Administration Atorvastatin Calcium 20 mg 04/07/18 17:00 04/07/18 17:24 Lipitor PO 20 mg DIN [facility] Administration Folic Acid 1 mg 04/07/18 10:00 04/08/18 09:48 Folic Acid PO 1 mg DAILY [facility] Administration Heparin Sodium (Porcine) 5,000 units 04/07/18 14:00 04/08/18 05:22 Heparin SC 5,000 units Q8 [facility] Administration Protocol Lorazepam 2 mg 04/07/18 11:45 04/08/18 12:14 Ativan IVP 2 mg Q6H [facility] Administration Protocol Lorazepam 1 mg 04/07/18 11:45 Ativan IVP Q1 PRN Anxiety Protocol Metoprolol Tartrate 50 mg 04/07/18 08:00 04/08/18 09:47 Lopressor PO 50 mg 0800,1800 [facility] Administration Ondansetron HCl 4 mg 04/06/18 22:07 Zofran Inj IVP Q6H PRN Nausea/Vomiting Pantoprazole Sodium 40 mg 04/08/18 06:00 04/08/18 05:22 Protonix Ec Tab PO 40 mg 0600 [facility] Administration Thiamine HCl 100 mg 04/07/18 10:00 04/08/18 09:47 Vitamin B1 Tab PO 100 mg DAILY [facility] Administration - Patient Studies Lab Studies: Microbiology Studies 04/07/18 01:00 MRSA Culture (Admit) - Final Nose MRSA NOT DETECTED Lab Studies 04/08/18 04/08/18 04/08/18 Range/Units 08:30 08:10 04:05 WBC (4.5-11.0) 10^3/ul RBC (3.5-6.1) 10^6/uL Hgb (14.0-18.0) g/dL Hct (42.0-52.0) % MCV (80.0-105.0) fl MCH (25.0-35.0) pg MCHC (31.0-37.0) g/dl RDW (11.5-14.5) % Plt Count (120.0-450.0) 10^3/uL MPV (7.0-11.0) fl Gran % (50.0-68.0) % Lymph % (Auto) (22.0-35.0) % [place] % (Auto) (1.0-6.0) % Eos % (Auto) (1.5-5.0) % Baso % (Auto) (0.0-3.0) % Gran # (1.4-6.5) Lymph # (Auto) (1.2-3.4) [place] # (Auto) (0.1-0.6) Eos # (Auto) (0.0-0.7) Baso # (Auto) (0.0-2.0) K/mm3 Sodium 124 L 125 L (132-148) mmol/L Potassium 3.8 3.7 (3.6-5.0) mmol/L Chloride 95 L 94 L (98-107) mmol/L Carbon Dioxide 22 23 (21-33) mmol/L Anion Gap 12 12 (10-20) BUN 4 L 5 L (7-21) mg/dL Creatinine 0.7 L 0.6 L (0.8-1.5) mg/dl Est GFR ( Amer) > 60 > 60 Est GFR (Non-Af Amer) > 60 > 60 Random Glucose 152 H 84 (70-110) mg/dL Calcium 8.3 L 8.2 L (8.4-10.5) mg/dL Magnesium 2.1 (1.7-2.2) mg/dL Total Bilirubin 1.0 (0.2-1.3) mg/dL AST 94 H D (17-59) U/L ALT 62 H (7-56) U/L Alkaline Phosphatase 81 (38-126) U/L Total Protein 6.6 (5.8-8.3) g/dL Albumin 3.5 (3.0-4.8) g/dL Globulin 3.1 gm/dL Albumin/Globulin Ratio 1.1 (1.1-1.8) Urine Osmolality 121 L (300-1000) mosm/kg 04/08/18 04/08/18 04/07/18 Range/Units 04:05 00:01 22:48 WBC 3.8 L D (4.5-11.0) 10^3/ul RBC 3.80 (3.5-6.1) 10^6/uL Hgb 12.2 L (14.0-18.0) g/dL Hct 34.3 L (42.0-52.0) % MCV 90.3 D (80.0-105.0) fl MCH 32.1 (25.0-35.0) pg MCHC 35.6 (31.0-37.0) g/dl RDW 13.2 (11.5-14.5) % Plt Count 117 L (120.0-450.0) 10^3/uL MPV 9.9 (7.0-11.0) fl Gran % 60.3 (50.0-68.0) % Lymph % (Auto) 29.7 (22.0-35.0) % [place] % (Auto) 9.2 H (1.0-6.0) % Eos % (Auto) 0.5 L (1.5-5.0) % Baso % (Auto) 0.3 (0.0-3.0) % Gran # 2.30 (1.4-6.5) Lymph # (Auto) 1.1 L (1.2-3.4) [place] # (Auto) 0.4 (0.1-0.6) Eos # (Auto) 0.0 (0.0-0.7) Baso # (Auto) 0.01 (0.0-2.0) K/mm3 Sodium 121 L (132-148) mmol/L Potassium 3.4 L (3.6-5.0) mmol/L Chloride 90 L (98-107) mmol/L Carbon Dioxide 22 (21-33) mmol/L Anion Gap 12 (10-20) BUN 6 L (7-21) mg/dL Creatinine 0.7 L (0.8-1.5) mg/dl Est GFR ( Amer) > 60 Est GFR (Non-Af Amer) > 60 Random Glucose 88 (70-110) mg/dL Calcium 7.9 L (8.4-10.5) mg/dL Magnesium (1.7-2.2) mg/dL Total Bilirubin (0.2-1.3) mg/dL AST (17-59) U/L ALT (7-56) U/L Alkaline Phosphatase (38-126) U/L Total Protein (5.8-8.3) g/dL Albumin (3.0-4.8) g/dL Globulin gm/dL Albumin/Globulin Ratio (1.1-1.8) Urine Osmolality 181 L (300-1000) mosm/kg 04/07/18 04/07/18 Range/Units 20:45 15:58 WBC (4.5-11.0) 10^3/ul RBC (3.5-6.1) 10^6/uL Hgb (14.0-18.0) g/dL Hct (42.0-52.0) % MCV (80.0-105.0) fl MCH (25.0-35.0) pg MCHC (31.0-37.0) g/dl RDW (11.5-14.5) % Plt Count (120.0-450.0) 10^3/uL MPV (7.0-11.0) fl Gran % (50.0-68.0) % Lymph % (Auto) (22.0-35.0) % [place] % (Auto) (1.0-6.0) % Eos % (Auto) (1.5-5.0) % Baso % (Auto) (0.0-3.0) % Gran # (1.4-6.5) Lymph # (Auto) (1.2-3.4) [place] # (Auto) (0.1-0.6) Eos # (Auto) (0.0-0.7) Baso # (Auto) (0.0-2.0) K/mm3 Sodium 119 L* 120 L (132-148) mmol/L Potassium 3.5 L 3.3 L (3.6-5.0) mmol/L Chloride 88 L 88 L (98-107) mmol/L Carbon Dioxide 22 22 (21-33) mmol/L Anion Gap 13 13 (10-20) BUN 7 6 L (7-21) mg/dL Creatinine 0.7 L 0.6 L (0.8-1.5) mg/dl Est GFR ( Amer) > 60 > 60 Est GFR (Non-Af Amer) > 60 > 60 Random Glucose 75 144 H (70-110) mg/dL Calcium 7.6 L 7.6 L (8.4-10.5) mg/dL Magnesium (1.7-2.2) mg/dL Total Bilirubin (0.2-1.3) mg/dL AST (17-59) U/L ALT (7-56) U/L Alkaline Phosphatase (38-126) U/L Total Protein (5.8-8.3) g/dL Albumin (3.0-4.8) g/dL Globulin gm/dL Albumin/Globulin Ratio (1.1-1.8) Urine Osmolality (300-1000) mosm/kg Laboratory Results - last 24 hr 04/07/18 04/07/18 04/07/18 15:58 20:45 22:48 WBC RBC Hgb Hct MCV MCH MCHC RDW Plt Count MPV Gran % Lymph % (Auto) [place] % (Auto) Eos % (Auto) Baso % (Auto) Gran # Lymph # (Auto) [place] # (Auto) Eos # (Auto) Baso # (Auto) Sodium 120 L 119 L* Potassium 3.3 L 3.5 L Chloride 88 L 88 L Carbon Dioxide 22 22 Anion Gap 13 13 BUN 6 L 7 Creatinine 0.6 L 0.7 L Est GFR ( Amer) > 60 > 60 Est GFR (Non-Af Amer) > 60 > 60 Random Glucose 144 H 75 Calcium 7.6 L 7.6 L Magnesium Total Bilirubin AST ALT Alkaline Phosphatase Total Protein Albumin Globulin Albumin/Globulin Ratio Urine Osmolality 181 L 04/08/18 04/08/18 04/08/18 00:01 04:05 04:05 WBC 3.8 L D RBC 3.80 Hgb 12.2 L Hct 34.3 L MCV 90.3 D MCH 32.1 MCHC 35.6 RDW 13.2 Plt Count 117 L MPV 9.9 Gran % 60.3 Lymph % (Auto) 29.7 [place] % (Auto) 9.2 H Eos % (Auto) 0.5 L Baso % (Auto) 0.3 Gran # 2.30 Lymph # (Auto) 1.[address] [place] # (Auto) 0.4 Eos # (Auto) 0.0 Baso # (Auto) 0.01 Sodium 121 L 125 L Potassium 3.4 L 3.7 Chloride 90 L 94 L Carbon Dioxide 22 23 Anion Gap 12 12 BUN 6 L 5 L Creatinine 0.7 L 0.6 L Est GFR ( Amer) > 60 > 60 Est GFR (Non-Af Amer) > 60 > 60 Random Glucose 88 84 Calcium 7.9 L 8.2 L Magnesium 2.1 Total Bilirubin 1.0 AST 94 H D ALT 62 H Alkaline Phosphatase 81 Total Protein 6.6 Albumin 3.5 Globulin 3.1 Albumin/Globulin Ratio 1.1 Urine Osmolality 04/08/18 04/08/18 08:10 08:30 WBC RBC Hgb Hct MCV MCH MCHC RDW Plt Count MPV Gran % Lymph % (Auto) [place] % (Auto) Eos % (Auto) Baso % (Auto) Gran # Lymph # (Auto) [place] # (Auto) Eos # (Auto) Baso # (Auto) Sodium 124 L Potassium 3.8 Chloride 95 L Carbon Dioxide 22 Anion Gap 12 BUN 4 L Creatinine 0.7 L Est GFR ( Amer) > 60 Est GFR (Non-Af Amer) > 60 Random Glucose 152 H Calcium 8.3 L Magnesium Total Bilirubin AST ALT Alkaline Phosphatase Total Protein Albumin Globulin Albumin/Globulin Ratio Urine Osmolality 121 L Critical Care Progress Note - Nutrition Nutrition: Nutrition Category Date Time Status Heart Healthy Diet [DIET] Diets 04/06/18 Breakfast Active Addendum Addendum: 04/08/18 15:36 ICU Attending Addendum Patient seen and examined. Case reviewed on round with housestaff. Agree with resident note above with the following additions/exceptions: 57M with hx of alcohol abuse, CAD, hypertension who presents with 5 days of drinking beer found to be severely hyponatremic likely from beer potomania given hx, low serum na and low urine osm Sodium was rapidly corrected however patient does not exhibit any neuro signs of ODS. Has been kept on fluid rerstriction overnight and not giving any fluids. Na stable now.Nephro on board managing hypo na seriel chem q4 CIWA protocol for etoh withdrawl DVT ppx hep sq no gi ppx indicatoin Stable for transfer out of ICU rest of care above Derrick Yeung MD Health Education Assistant Critical Care TIme: 31 mins
[2018-04-08 08:48] LABS: BLOOD UREA NITROGEN 4 mg/dL (7-21); CALCIUM 8.3 mg/dL (8.4-10.5); GFR NON-AFRICAN AMERICAN > 60
--- NOTE | 2018-04-08 12:23 | CP.PCM.PN ---
<Tony Pressley - Last Filed: 04/08/18 12:38> Subjective - Date & Time of Evaluation Date of Evaluation: 04/08/18 Time of Evaluation: 12:22 - Subjective Subjective: Pt seen and examined in ICU. Pt reports hand swelling from IV, no other complaints at this time. Objective - Vital Signs/Intake and Output Vital Signs (last 24 hours): Temp Pulse Resp BP Pulse Ox 98.9 F 81 18 147/88 87 L 04/08/18 11:00 04/08/18 10:51 04/08/18 10:51 04/08/18 10:00 04/08/18 10:44 Intake and Output: 04/08/18 04/08/18 06:59 18:59 Intake Total 1000 640 Output Total 3500 850 Balance -2500 -210 - Medications Medications: Current Medications Aspirin (Aspirin Chewable) 81 mg PO DAILY [facility] Last Admin: 04/08/18 09:47 Dose: 81 mg Atorvastatin Calcium (Lipitor) 20 mg PO DIN [facility] Last Admin: 04/07/18 17:24 Dose: 20 mg Folic Acid (Folic Acid) 1 mg PO DAILY [facility] Last Admin: 04/08/18 09:48 Dose: 1 mg Heparin Sodium (Porcine) (Heparin) 5,000 units SC Q8 [facility]; Protocol Last Admin: 04/08/18 05:22 Dose: 5,000 units Lorazepam (Ativan) 2 mg IVP Q6H [facility]; Protocol Last Admin: 04/08/18 12:14 Dose: 2 mg Lorazepam (Ativan) 1 mg IVP Q1 PRN; Protocol PRN Reason: Anxiety Metoprolol Tartrate (Lopressor) 50 mg PO 0800,1800 [facility] Last Admin: 04/08/18 09:47 Dose: 50 mg Ondansetron HCl (Zofran Inj) 4 mg IVP Q6H PRN PRN Reason: Nausea/Vomiting Pantoprazole Sodium (Protonix Ec Tab) 40 mg PO 0600 [facility] Last Admin: 04/08/18 05:22 Dose: 40 mg Thiamine HCl (Vitamin B1 Tab) 100 mg PO DAILY [facility] Last Admin: 04/08/18 09:47 Dose: 100 mg - Labs Labs: 04/08/18 04:05 04/08/18 08:30 - Constitutional Appears: Non-toxic, No Acute Distress - Head Exam Head Exam: ATRAUMATIC, NORMAL INSPECTION, NORMOCEPHALIC - Eye Exam Eye Exam: EOMI, Normal appearance. absent: Scleral icterus - ENT Exam ENT Exam: Mucous Membranes Moist - Respiratory Exam Respiratory Exam: Clear to Ausculation Bilateral, NORMAL BREATHING PATTERN. absent: Accessory Muscle Use, Wheezes, Respiratory Distress, Stridor - Cardiovascular Exam Cardiovascular Exam: RRR, +S1, +S2. absent: Diastolic murmur, JVD, Murmur - GI/Abdominal Exam GI & Abdominal Exam: Soft, Normal Bowel Sounds. absent: Tenderness, Rebound - Extremities Exam Extremities Exam: Full ROM, Normal Inspection. absent: Calf Tenderness, Pedal Edema, Tenderness - Neurological Exam Neurological Exam: Alert, Awake, Oriented x3 - Psychiatric Exam Psychiatric exam: Normal Affect, Normal Mood - Skin Skin Exam: Dry, Intact, Warm Assessment and Plan - Assessment and Plan (Free Text) Assessment: Pt is a 57 year old male with a PMH of CAD s/p stent, alcohol use disorder, HTN, paroxysmal atrial fibrillation, depression, tobacco abuse who presented to our ED for alcohol intoxication and admitted for hyponatremia Plan: Hyponatremia - likely secondary to "beer potomania", renal water retention 2/2 to volume depletion - goal is to increase serum Na 6-8 meq over 24 hrs - repeat bmp q4h - monitor to ensure overcorrection does not occur - urine osmolality 121 - urine sodium <5 - Na currently 124 - pt started on DDAVP, D5@250, goal of Na 126 by 21:00, per Nephro Alcohol Withdrawal - last drink 12 hours prior to presentation - serum alcohol 252 on admission - discontinued librium due to elevated LFTs - ativan 2mg Q6 [facility] - ativan 1mg Q1 PRN - ciwa 1 - pt given banana bag - thiamine 100mg po qd, multivitamin, folic acid 1mg po qd - seizure precautions, fall precautions, aspiration precautions Hypokalemia - K 3.8 - replete PRN - follow-up bmp HTN - metoprolol 50mg po bid - 130/70 Paroxysmal AFib - not in AFib currently - metoprolol 50mg po bid CAD - s/p cardiac stent - aspirin 81mg po qd - atorvastatin 20mg po qPM Elevated LFTs - indicative of alcohol use disorder - hepatitis panel in 09/2017 was negative HLD - lipitor 20mg po din PPx - heparin - heart healthy diet Pt seen, examined, assessment and plan discussed with Dr Sandra Pressley PGY1, Internal Medicine Resident <Sweta Flores - Last Filed: 04/08/18 17:21> Objective - Vital Signs/Intake and Output Vital Signs (last 24 hours): Temp Pulse Resp BP Pulse Ox 98.9 F 81 18 147/88 87 L 04/08/18 11:00 04/08/18 10:51 04/08/18 10:51 04/08/18 10:00 04/08/18 10:44 Intake and Output: 04/08/18 04/08/18 06:59 18:59 Intake Total 1000 640 Output Total 3500 850 Balance -2500 -210 - Medications Medications: Current Medications Aspirin (Aspirin Chewable) 81 mg PO DAILY [facility] Last Admin: 04/08/18 09:47 Dose: 81 mg Atorvastatin Calcium (Lipitor) 20 mg PO DIN [facility] Last Admin: 04/07/18 17:24 Dose: 20 mg Folic Acid (Folic Acid) 1 mg PO DAILY [facility] Last Admin: 04/08/18 09:48 Dose: 1 mg Heparin Sodium (Porcine) (Heparin) 5,000 units SC Q8 [facility]; Protocol Last Admin: 04/08/18 16:18 Dose: 5,000 units Lorazepam (Ativan) 1 mg IVP Q1 PRN; Protocol PRN Reason: Anxiety Lorazepam (Ativan) 1 mg IVP Q6H [facility]; Protocol Metoprolol Tartrate (Lopressor) 50 mg PO 0800,1800 [facility] Last Admin: 04/08/18 09:47 Dose: 50 mg Ondansetron HCl (Zofran Inj) 4 mg IVP Q6H PRN PRN Reason: Nausea/Vomiting Pantoprazole Sodium (Protonix Ec Tab) 40 mg PO 0600 [facility] Last Admin: 04/08/18 05:22 Dose: 40 mg Thiamine HCl (Vitamin B1 Tab) 100 mg PO DAILY [facility] Last Admin: 04/08/18 09:47 Dose: 100 mg - Labs Labs: 04/08/18 04:05 04/08/18 08:30 Attending/Attestation - Attestation I have personally seen and examined this patient.: Yes I have fully participated in the care of the patient.: Yes I have reviewed all pertinent clinical information, including history, physical exam and plan: Yes Notes (Text): 04/08/18 17:19 57 year old male with past medical history of CAD s/p stent, paroxysmal afib, hypertension and alcohol abuse who presented with alcohol intoxication /withdrawal; found to have significant hyponatremia. He was started initially started on hypertonic saline later discontinued. Continue to monitor sodium closely. Nephrology is following and patient received DDAVP. Continue with multivitamin, folic acid and thiamine. Continue with tapering ativan mervat/prn for withdrawal symptoms. He was counselled on alcohol abstinence. Transaminitis likely secondary to chronic etoh abuse. Will continue to monitor and hold statin for now. He will be transferred out of ICU today. Sweta Flores MD Hospitalist.
[2018-04-08 17:22] LABS: BLOOD UREA NITROGEN 8 mg/dL (7-21); CALCIUM 8.1 mg/dL (8.4-10.5); GFR NON-AFRICAN AMERICAN > 60
[2018-04-09] MEDS: Pantoprazole 40 mg EC Tab PO SCH (06:50)
[2018-04-09 07:43] LABS: BASO # 0.04 K/mm3 (0.0-2.0); EOS # 0.1 (0.0-0.7); EOS % 1.5 % (1.5-5.0); GRAN # 2.06 (1.4-6.5); GRAN % 50.8 % (50.0-68.0); LYMPH # 1.5 (1.2-3.4); LYMPH % 36.8 % (22.0-35.0); MEAN CELL VOLUME 90.8 fl (80.0-105.0); MEAN CORPUSCULAR HEMOGLOBIN 31.7 pg (25.0-35.0); MEAN CORPUSCULAR HGB CONC 34.9 g/dl (31.0-37.0); MEAN PLATELET VOLUME 10.5 fl (7.0-11.0); MONO # 0.4 (0.1-0.6); MONO % 9.9 % (1.0-6.0); RBC 3.79 10^6/uL (3.5-6.1); RED CELL DISTRIBUTION WIDTH 12.9 % (11.5-14.5); WHITE BLOOD COUNT 4.1 10^3/ul (4.5-11.0)
[2018-04-09 08:14] LABS: ALB/GLOB RATIO 1.2 (1.1-1.8); ALBUMIN 3.7 g/dL (3.0-4.8); ALT/SGPT 62 U/L (7-56); AST/SGOT 82 U/L (17-59); BLOOD UREA NITROGEN 6 mg/dL (7-21); CALCIUM 8.5 mg/dL (8.4-10.5); GFR NON-AFRICAN AMERICAN > 60
--- NOTE | 2018-04-09 19:37 | CP.PCM.PN ---
<Tony Pressley - Last Filed: 04/09/18 20:24> Subjective - Date & Time of Evaluation Date of Evaluation: 04/09/18 Time of Evaluation: 19:36 - Subjective Subjective: Pt seen and examined at bedside this morning. Pt denies any new complaints. Objective - Vital Signs/Intake and Output Vital Signs (last 24 hours): Temp Pulse Resp BP Pulse Ox 97.4 F L 80 20 125/85 99 04/09/18 14:00 04/09/18 14:00 04/09/18 14:00 04/09/18 14:00 04/09/18 14:00 Intake and Output: 04/09/18 04/10/18 18:59 06:59 Intake Total 600 Output Total 1600 Balance -1000 - Medications Medications: Current Medications Aspirin (Aspirin Chewable) 81 mg PO DAILY [facility] Last Admin: 04/09/18 10:39 Dose: 81 mg Atorvastatin Calcium (Lipitor) 20 mg PO DIN [facility] Last Admin: 04/07/18 17:24 Dose: 20 mg Folic Acid (Folic Acid) 1 mg PO DAILY [facility] Last Admin: 04/09/18 10:39 Dose: 1 mg Heparin Sodium (Porcine) (Heparin) 5,000 units SC Q8 [facility]; Protocol Last Admin: 04/09/18 15:51 Dose: 5,000 units Lorazepam (Ativan) 1 mg IVP Q1 PRN; Protocol PRN Reason: Anxiety Lorazepam (Ativan) 0.5 mg IVP Q6H [facility]; Protocol Last Admin: 04/09/18 18:50 Dose: 0.5 mg Metoprolol Tartrate (Lopressor) 50 mg PO 0800,1800 [facility] Last Admin: 04/09/18 18:50 Dose: 50 mg Ondansetron HCl (Zofran Inj) 4 mg IVP Q6H PRN PRN Reason: Nausea/Vomiting Pantoprazole Sodium (Protonix Ec Tab) 40 mg PO 0600 [facility] Last Admin: 04/09/18 06:50 Dose: 40 mg Sodium Chloride (Sodium Chloride Tab) 2 gm PO Q8H [facility] Last Admin: 04/09/18 15:51 Dose: 2 gm Thiamine HCl (Vitamin B1 Tab) 100 mg PO DAILY [facility] Last Admin: 04/09/18 10:39 Dose: 100 mg - Labs Labs: 04/09/18 06:30 04/09/18 06:30 - Constitutional Appears: Non-toxic, No Acute Distress - Head Exam Head Exam: ATRAUMATIC, NORMAL INSPECTION, NORMOCEPHALIC - Eye Exam Eye Exam: EOMI, Normal appearance. absent: Scleral icterus - ENT Exam ENT Exam: Mucous Membranes Moist, Normal Exam - Neck Exam Neck Exam: Full ROM, Normal Inspection - Respiratory Exam Respiratory Exam: Clear to Ausculation Bilateral, NORMAL BREATHING PATTERN. absent: Accessory Muscle Use, Wheezes, Respiratory Distress - Cardiovascular Exam Cardiovascular Exam: RRR, +S1, +S2. absent: Diastolic murmur - GI/Abdominal Exam GI & Abdominal Exam: Soft, Normal Bowel Sounds. absent: Distended, Tenderness - Extremities Exam Extremities Exam: Full ROM. absent: Calf Tenderness, Pedal Edema - Neurological Exam Neurological Exam: Alert, Awake, Oriented x3 Additional comments: no asterixis - Psychiatric Exam Psychiatric exam: Normal Affect, Normal Mood - Skin Skin Exam: Dry, Intact, Warm Assessment and Plan - Assessment and Plan (Free Text) Assessment: Pt is a 57 year old male with a PMH of CAD s/p stent, alcohol use disorder, HTN, paroxysmal atrial fibrillation, depression, tobacco abuse who presented to our ED for alcohol intoxication and admitted for hyponatremia Plan: Hyponatremia - likely secondary to "beer potomania", renal water retention 2/2 to volume depletion - monitor to ensure overcorrection does not occur - urine osmolality 278 - urine sodium 81 - Na 126 -Nephro, rec DDAVP, Alcohol Withdrawal - 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[employer], on admission serum alcohol was 252 - elevated LFTs, discontinued librium - ativan 0.5 mg Q6 MERVAT - ativan 1mg Q1 PRN - continue to taper ativan as withdrawal symptoms improve - ciwa score 0 - thiamine 100mg po qd, folic acid 1mg po qd - seizure and aspiration precautions Hypokalemia - K 3.6 today - conitinue to monitor and replete prn HTN - continue home metoprolol 50mg po bid - 125/85 Paroxysmal AFib - chronict, stable, patient not in AFib currently - continue home metoprolol 50mg po bid CAD - s/p cardiac stent - aspirin 81mg po qd - atorvastatin 20mg po qPM - heart healthy diet Transaminitis - improving, AST 82, ALT 62 - indicative of alcohol use disorder - hepatitis panel in 09/2017 was negative HLD - lipitor 20mg po din PPx - heparin Pt seen, examined, assessment and plan discussed with Dr Sandra Pressley PGY1, Internal Medicine Resident <Sweta Flores - Last Filed: 04/10/18 08:15> Objective - Vital Signs/Intake and Output Vital Signs (last 24 hours): Temp Pulse Resp BP Pulse Ox 97.8 F 67 20 134/87 97 04/10/18 06:00 04/10/18 06:00 04/10/18 06:00 04/10/18 06:00 04/10/18 06:00 Intake and Output: 04/10/18 04/10/18 06:59 18:59 Intake Total 360 Balance 360 - Medications Medications: Current Medications Aspirin (Aspirin Chewable) 81 mg PO DAILY [facility] Last Admin: 04/09/18 10:39 Dose: 81 mg Atorvastatin Calcium (Lipitor) 20 mg PO DIN [facility] Last Admin: 04/07/18 17:24 Dose: 20 mg Folic Acid (Folic Acid) 1 mg PO DAILY [facility] Last Admin: 04/09/18 10:39 Dose: 1 mg Heparin Sodium (Porcine) (Heparin) 5,000 units SC Q8 [facility]; Protocol Last Admin: 04/10/18 05:38 Dose: 5,000 units Lorazepam (Ativan) 1 mg IVP Q1 PRN; Protocol PRN Reason: Anxiety Last Admin: 04/09/18 22:05 Dose: 1 mg Lorazepam (Ativan) 0.5 mg IVP Q6H [facility]; Protocol Last Admin: 04/10/18 05:50 Dose: 0.5 mg Metoprolol Tartrate (Lopressor) 50 mg PO 0800,1800 [facility] Last Admin: 04/09/18 18:50 Dose: 50 mg Ondansetron HCl (Zofran Inj) 4 mg IVP Q6H PRN PRN Reason: Nausea/Vomiting Pantoprazole Sodium (Protonix Ec Tab) 40 mg PO 0600 [facility] Last Admin: 04/09/18 06:50 Dose: 40 mg Sodium Chloride (Sodium Chloride Tab) 2 gm PO Q8H [facility] Last Admin: 04/10/18 05:49 Dose: 2 gm Thiamine HCl (Vitamin B1 Tab) 100 mg PO DAILY [facility] Last Admin: 04/09/18 10:39 Dose: 100 mg - Labs Labs: 04/09/18 06:30 04/09/18 06:30 Attending/Attestation - Attestation I have personally seen and examined this patient.: Yes I have fully participated in the care of the patient.: Yes I have reviewed all pertinent clinical information, including history, physical exam and plan: Yes Notes (Text): 04/09/18 57 year old male with past medical history of CAD s/p stent, paroxysmal afib, hypertension and alcohol abuse who presented with alcohol intoxication/withdrawal; found to have significant hyponatremia. He was started initially started on hypertonic saline later discontinued. Continue to monitor sodium closely. Sodium is improving. Nephrology is following. Continue with multivitamin, folic acid and thiamine. Continue with tapering ativan mervat/prn for withdrawal symptoms. He was counselled on alcohol abstinence. Transaminitis likely secondary to chronic etoh abuse. LFTs have improved. Will continue to monitor and hold statin for now. Sweta Flores MD Hospitalist.
--- NOTE | 2018-04-09 23:05 | CP.PCM.PN ---
Subjective - Date & Time of Evaluation Date of Evaluation: 04/09/18 Time of Evaluation: 12:30 - Subjective Subjective: Patient reports feeling well; no nausea/vomiting; Objective - Vital Signs/Intake and Output Vital Signs (last 24 hours): Temp Pulse Resp BP Pulse Ox 98.3 F 75 16 141/91 H 98 04/09/18 22:00 04/09/18 22:00 04/09/18 22:00 04/09/18 22:00 04/09/18 22:00 Intake and Output: 04/09/18 04/10/18 18:59 06:59 Intake Total 600 Output Total 1600 Balance -1000 - Medications Medications: Current Medications Aspirin (Aspirin Chewable) 81 mg PO DAILY [facility] Last Admin: 04/09/18 10:39 Dose: 81 mg Atorvastatin Calcium (Lipitor) 20 mg PO DIN [facility] Last Admin: 04/07/18 17:24 Dose: 20 mg Folic Acid (Folic Acid) 1 mg PO DAILY [facility] Last Admin: 04/09/18 10:39 Dose: 1 mg Heparin Sodium (Porcine) (Heparin) 5,000 units SC Q8 [facility]; Protocol Last Admin: 04/09/18 22:06 Dose: 5,000 units Lorazepam (Ativan) 1 mg IVP Q1 PRN; Protocol PRN Reason: Anxiety Last Admin: 04/09/18 22:05 Dose: 1 mg Lorazepam (Ativan) 0.5 mg IVP Q6H [facility]; Protocol Last Admin: 04/09/18 18:50 Dose: 0.5 mg Metoprolol Tartrate (Lopressor) 50 mg PO 0800,1800 [facility] Last Admin: 04/09/18 18:50 Dose: 50 mg Ondansetron HCl (Zofran Inj) 4 mg IVP Q6H PRN PRN Reason: Nausea/Vomiting Pantoprazole Sodium (Protonix Ec Tab) 40 mg PO 0600 [facility] Last Admin: 04/09/18 06:50 Dose: 40 mg Sodium Chloride (Sodium Chloride Tab) 2 gm PO Q8H [facility] Last Admin: 04/09/18 15:51 Dose: 2 gm Thiamine HCl (Vitamin B1 Tab) 100 mg PO DAILY [facility] Last Admin: 04/09/18 10:39 Dose: 100 mg - Labs Labs: 04/09/18 06:30 04/09/18 06:30 - Constitutional Appears: Non-toxic, No Acute Distress - Respiratory Exam Respiratory Exam: Clear to Ausculation Bilateral. absent: Respiratory Distress - Cardiovascular Exam Cardiovascular Exam: RRR, +S1, +S2 - GI/Abdominal Exam GI & Abdominal Exam: Soft. absent: Distended, Tenderness - Extremities Exam Additional comments: no leg edema; - Neurological Exam Neurological Exam: Alert, Awake - Psychiatric Exam Psychiatric exam: Normal Mood. absent: Agitated - Skin Skin Exam: Warm. absent: Cyanosis Assessment and Plan (1) Hyponatremia Assessment & Plan: Serum Na increasing at safe rate; urine osm not very high last night indicating effect of desmopressin wearing off; sodium should continue to correct; will continue salt tabs for now, can likely discontinue by tomorrow; Status: Acute (2) Hypertension Assessment & Plan: BP mildly elevated, continue metoprolol (history of paroxyxmal Afib); Status: Chronic
[2018-04-10 08:06] VITALS: BP 134/87; PULSE 67; RESP 20; TEMP 97.8; O2SAT 97
[2018-04-10 08:20] LABS: BASO # 0.03 K/mm3 (0.0-2.0); BASO % 0.5 % (0.0-3.0); EOS # 0.1 (0.0-0.7); GRAN # 2.96 (1.4-6.5); GRAN % 53.4 % (50.0-68.0); HEMOGLOBIN 11.9 g/dL (14.0-18.0); LYMPH # 1.9 (1.2-3.4); LYMPH % 33.5 % (22.0-35.0); MEAN CELL VOLUME 92.9 fl (80.0-105.0); MEAN CORPUSCULAR HEMOGLOBIN 32.3 pg (25.0-35.0); MEAN CORPUSCULAR HGB CONC 34.8 g/dl (31.0-37.0); MEAN PLATELET VOLUME 10.4 fl (7.0-11.0); MONO # 0.6 (0.1-0.6); MONO % 10.6 % (1.0-6.0); RBC 3.68 10^6/uL (3.5-6.1); RED CELL DISTRIBUTION WIDTH 13.2 % (11.5-14.5); WHITE BLOOD COUNT 5.6 10^3/ul (4.5-11.0)
[2018-04-10 09:01] LABS: ALB/GLOB RATIO 1.3 (1.1-1.8); ALBUMIN 4.1 g/dL (3.0-4.8); ALT/SGPT 62 U/L (7-56); AST/SGOT 77 U/L (17-59); BLOOD UREA NITROGEN 10 mg/dL (7-21); CALCIUM 9.3 mg/dL (8.4-10.5); GFR NON-AFRICAN AMERICAN > 60
--- NOTE | 2018-04-10 10:59 | CP.PCM.DIS ---
<Tony Pressley - Last Filed: 04/10/18 14:58> Provider - Provider Date of Admission: 04/06/18 22:23 Attending physician: Helga Watts DO Time Spent in preparation of Discharge (in minutes): 45 Diagnosis - Discharge Diagnosis (1) Hyponatremia Status: Acute Priority: High (2) Alcohol withdrawal Status: Acute Priority: High (3) Hypokalemia Status: Acute Priority: High (4) HTN (hypertension) Status: Acute (5) Paroxysmal A-fib Status: Acute (6) CAD (coronary artery disease) Status: Chronic Priority: High (7) Transaminitis Status: Acute (8) Transaminitis Status: Chronic Priority: Medium Hospital Course - Lab Results Lab Results: Micro Results 04/07/18 01:00 Nose MRSA Culture (Admit) - Final MRSA NOT DETECTED Most Recent Lab Values WBC 5.6 10^3/ul (4.5-11.0) D 04/10/18 07:00 RBC 3.68 10^6/uL (3.5-6.1) 04/10/18 07:00 Hgb 11.9 g/dL (14.0-18.0) L 04/10/18 07:00 Hct 34.2 % (42.0-52.0) L 04/10/18 07:00 MCV 92.9 fl (80.0-105.0) 04/10/18 07:00 MCH 32.3 pg (25.0-35.0) 04/10/18 07:00 MCHC 34.8 g/dl (31.0-37.0) 04/10/18 07:00 RDW 13.2 % (11.5-14.5) 04/10/18 07:00 Plt Count 158 10^3/uL (120.0-450.0) 04/10/18 07:00 MPV 10.4 fl (7.0-11.0) 04/10/18 07:00 Gran % 53.4 % (50.0-68.0) 04/10/18 07:00 Lymph % (Auto) 33.5 % (22.0-35.0) 04/10/18 07:00 Isabella % (Auto) 10.6 % (1.0-6.0) H 04/10/18 07:00 Eos % (Auto) 2.0 % (1.5-5.0) 04/10/18 07:00 Baso % (Auto) 0.5 % (0.0-3.0) 04/10/18 07:00 Gran # 2.96 (1.4-6.5) 04/10/18 07:00 Lymph # (Auto) 1.9 (1.2-3.4) 04/10/18 07:00 Isabella # (Auto) 0.6 (0.1-0.6) 04/10/18 07:00 Eos # (Auto) 0.1 (0.0-0.7) 04/10/18 07:00 Baso # (Auto) 0.03 K/mm3 (0.0-2.0) 04/10/18 07:00 Sodium 132 mmol/L (132-148) 04/10/18 07:00 Potassium 3.9 mmol/L (3.6-5.0) 04/10/18 07:00 Chloride 98 mmol/L (98-107) 04/10/18 07:00 Carbon Dioxide 25 mmol/L (21-33) 04/10/18 07:00 Anion Gap 13 (10-20) 04/10/18 07:00 BUN 10 mg/dL (7-21) 04/10/18 07:00 Creatinine 0.8 mg/dl (0.8-1.5) 04/10/18 07:00 Est GFR ( Amer) > 60 04/10/18 07:00 Est GFR (Non-Af Amer) > 60 04/10/18 07:00 Random Glucose 75 mg/dL (70-110) 04/10/18 07:00 Hemoglobin A1c 5.2 % (4.2-6.5) 04/07/18 05:30 Serum Osmolality 289 mosm/kg (272-300) 04/06/18 20:10 Calcium 9.3 mg/dL (8.4-10.5) 04/10/18 07:00 Phosphorus 2.6 mg/dL (2.5-4.5) 04/07/18 05:30 Magnesium 2.1 mg/dL (1.7-2.2) 04/10/18 07:00 Total Bilirubin 0.8 mg/dL (0.2-1.3) 04/10/18 07:00 AST 77 U/L (17-59) H 04/10/18 07:00 ALT 62 U/L (7-56) H 04/10/18 07:00 Alkaline Phosphatase 74 U/L (38-126) 04/10/18 07:00 Total Protein 7.3 g/dL (5.8-8.3) 04/10/18 07:00 Albumin 4.1 g/dL (3.0-4.8) 04/10/18 07:00 Globulin 3.2 gm/dL 04/10/18 07:00 Albumin/Globulin Ratio 1.3 (1.1-1.8) 04/10/18 07:00 Lipase 372 U/L (23-300) H 04/07/18 05:35 TSH 3rd Generation 0.46 mIU/mL (0.46-4.68) 04/07/18 12:00 Urine Osmolality 278 mosm/kg (300-1000) L 04/08/18 20:25 Ur Random Sodium 81 meq/L 04/08/18 20:25 Alcohol, Quantitative 252 mg/dL (0-10) H 04/06/18 20:10 - Hospital Course Hospital Course: Pt is a 57 yo male with a PMH of CAD s/p stent, alcohol abuse, HTN, paroxysmal atrial fibrillation, depression, and tobacco abuse who presented to our ED because he needed help quitting alcohol. He stated he's been drinking 12-15 beers per day with his last drink of alcohol 12 hours prior to arrival. Pt states that for 2 days prior to arrival he's been having non-bloody emesis and numerous episodes of diarrhea. He's had numerous visits and admissions for alcohol withdrawal in the past. He denied seizure activity, syncope, bleeding, bloody stools, chest pain, or shortness of breath. He states he takes 6 medications but could not recall their name. He stated he's takes his medications "most of the time". Upon admission, pt did not have tremors, but was monitored closely for withdrawal signs. He was observed under [facility] protocol, he was tachycardic, and hypokalemic, and hyponatremic Na 111. Pt was treated with hypertonic saline in the ED and subsequently treated with DDAVP. Pt was given D5W at 500cc. Pt was monitored with serial BMPs. Nephrology was consulted. While in the ICU. Pt was monitored untill his Na returned to a safe level of 132, and was dischar ged. Pt was encouraged to quit drinking alcohol. Pt was advised to follow up with his primary medical doctor within one week of discharge. Pt advised to restart his home medications and to take them as directed. - Date & Time of H&P Date of H&P: 04/10/18 Time of H&P: 06:00 Discharge Exam - Head Exam Head Exam: ATRAUMATIC, NORMAL INSPECTION, NORMOCEPHALIC - Eye Exam Eye Exam: EOMI - ENT Exam ENT Exam: Mucous Membranes Moist - Respiratory Exam Respiratory Exam: Accessory Muscle Use, NORMAL BREATHING PATTERN. absent: Wheezes, Respiratory Distress - Cardiovascular Exam Cardiovascular Exam: RRR, +S1, +S2. absent: Diastolic murmur, Systolic Murmur - GI/Abdominal Exam GI & Abdominal Exam: Normal Bowel Sounds, Unremarkable. absent: Rebound, Rigid - Extremities Exam Extremities exam: full ROM Additional comments: no asterixis - Neurological Exam Neurological exam: Alert, Oriented x3 - Psychiatric Exam Psychiatric exam: Normal Affect, Normal Mood - Skin Skin Exam: Dry, Normal Color, Warm Discharge Plan - Discharge Medications Prescriptions: Aspirin [Aspirin Chewable] 81 mg PO DAILY #30 chew Atorvastatin [Lipitor] 20 mg PO DIN #30 tab Folic Acid 1 mg PO DAILY #30 tab Metoprolol Tartrate [Lopressor] 50 mg PO 0800,1800 #30 tab Thiamine [Vitamin B1 Tab] 100 mg PO DAILY #30 tab - Follow Up Plan Condition: FAIR Disposition: HOME/ ROUTINE Instructions: Chronic Obstructive Pulmonary Disease (COPD), Including Emphysema, Alcohol Abuse and Alcoholism (DC), Effects of Alcohol on Your Health, Breathing Exercises Additional Instructions: 1. please follow up with your primary medical doctor within 1 week, for continued management of your chronic conditions 2. please continue to take the medications prescribed to you, as directed 3. abstain from alcohol 4. if your symptoms return of worsen, please go to the nearest emergency department as soon as possible <Sweta Flores - Last Filed: 04/10/18 15:06> Provider - Provider Date of Admission: 04/06/18 22:23 Attending physician: Helga Watts DO Hospital Course - Lab Results Lab Results: Micro Results 04/07/18 01:00 Nose MRSA Culture (Admit) - Final MRSA NOT DETECTED Most Recent Lab Values WBC 5.6 10^3/ul (4.5-11.0) D 04/10/18 07:00 RBC 3.68 10^6/uL (3.5-6.1) 04/10/18 07:00 Hgb 11.9 g/dL (14.0-18.0) L 04/10/18 07:00 Hct 34.2 % (42.0-52.0) L 04/10/18 07:00 MCV 92.9 fl (80.0-105.0) 04/10/18 07:00 MCH 32.3 pg (25.0-35.0) 04/10/18 07:00 MCHC 34.8 g/dl (31.0-37.0) 04/10/18 07:00 RDW 13.2 % (11.5-14.5) 04/10/18 07:00 Plt Count 158 10^3/uL (120.0-450.0) 04/10/18 07:00 MPV 10.4 fl (7.0-11.0) 04/10/18 07:00 Gran % 53.4 % (50.0-68.0) 04/10/18 07:00 Lymph % (Auto) 33.5 % (22.0-35.0) 04/10/18 07:00 Isabella % (Auto) 10.6 % (1.0-6.0) H 04/10/18 07:00 Eos % (Auto) 2.0 % (1.5-5.0) 04/10/18 07:00 Baso % (Auto) 0.5 % (0.0-3.0) 04/10/18 07:00 Gran # 2.96 (1.4-6.5) 04/10/18 07:00 Lymph # (Auto) 1.9 (1.2-3.4) 04/10/18 07:00 Isabella # (Auto) 0.6 (0.1-0.6) 04/10/18 07:00 Eos # (Auto) 0.1 (0.0-0.7) 04/10/18 07:00 Baso # (Auto) 0.03 K/mm3 (0.0-2.0) 04/10/18 07:00 Sodium 132 mmol/L (132-148) 04/10/18 07:00 Potassium 3.9 mmol/L (3.6-5.0) 04/10/18 07:00 Chloride 98 mmol/L (98-107) 04/10/18 07:00 Carbon Dioxide 25 mmol/L (21-33) 04/10/18 07:00 Anion Gap 13 (10-20) 04/10/18 07:00 BUN 10 mg/dL (7-21) 04/10/18 07:00 Creatinine 0.8 mg/dl (0.8-1.5) 04/10/18 07:00 Est GFR ( Amer) > 60 04/10/18 07:00 Est GFR (Non-Af Amer) > 60 04/10/18 07:00 Random Glucose 75 mg/dL (70-110) 04/10/18 07:00 Hemoglobin A1c 5.2 % (4.2-6.5) 04/07/18 05:30 Serum Osmolality 289 mosm/kg (272-300) 04/06/18 20:10 Calcium 9.3 mg/dL (8.4-10.5) 04/10/18 07:00 Phosphorus 2.6 mg/dL (2.5-4.5) 04/07/18 05:30 Magnesium 2.1 mg/dL (1.7-2.2) 04/10/18 07:00 Total Bilirubin 0.8 mg/dL (0.2-1.3) 04/10/18 07:00 AST 77 U/L (17-59) H 04/10/18 07:00 ALT 62 U/L (7-56) H 04/10/18 07:00 Alkaline Phosphatase 74 U/L (38-126) 04/10/18 07:00 Total Protein 7.3 g/dL (5.8-8.3) 04/10/18 07:00 Albumin 4.1 g/dL (3.0-4.8) 04/10/18 07:00 Globulin 3.2 gm/dL 04/10/18 07:00 Albumin/Globulin Ratio 1.3 (1.1-1.8) 04/10/18 07:00 Lipase 372 U/L (23-300) H 04/07/18 05:35 TSH 3rd Generation 0.46 mIU/mL (0.46-4.68) 04/07/18 12:00 Urine Osmolality 278 mosm/kg (300-1000) L 04/08/18 20:25 Ur Random Sodium 81 meq/L 04/08/18 20:25 Alcohol, Quantitative 252 mg/dL (0-10) H 04/06/18 20:10 Attending/Attestation - Attestation I have personally seen and examined this patient.: Yes I have fully participated in the care of the patient.: Yes I have reviewed all pertinent clinical information, including history, physical exam and plan: Yes Notes (Text): 04/10/18 15:04 57 year old male with past medical history of CAD s/p stent, paroxysmal afib, hypertension and alcohol abuse who presented with alcohol intoxication/withdrawal. He was treated with ativan taper and banana bag. He also was found to have significant hyponatremia, initially started on hypertonic saline later discontinued. Nephrology is following and his sodium level improved. LFTs also improved. Patient is discharged home to follow up with his pmd. Monitor LFTs as outpatient. Counselled on alcohol abstinence. Sweta Flores MD Hospitalist.
== END 2018-04-10 13:07 | disposition home or self-care (01) | DRG 641 ==
LOC: ED 19:43 → ERH 22:23 → CCU 04-07 00:37 → 5RNO 04-08 12:52
PROVIDERS: ADMIT Hospitalist; ATTEND Hospitalist
DX: E87.1 Hypo-osmolality and hyponatremia (principal); F10.239 Alcohol dependence with withdrawal, unspecified; F10.229 Alcohol dependence with intoxication, unspecified; E87.6 Hypokalemia; I25.10 Atherosclerotic heart disease of native coronary artery without angina pectoris; I48.0 Paroxysmal atrial fibrillation; I10 Essential (primary) hypertension; Y90.8 Blood alcohol level of 240 mg/100 ml or more; R74.0 Nonspecific elevation of levels of transaminase and lactic acid dehydrogenase [LDH]; F32.9 Major depressive disorder, single episode, unspecified; Z95.5 Presence of coronary angioplasty implant and graft; Z72.0 Tobacco use

== ENCOUNTER 2018-06-29 12:42 | Emergency (ER) | payer OTHER ==
[2018-06-29 16:08] VITALS: BP 151/84; PULSE 89; RESP 17; TEMP 97.7; O2SAT 97
[2018-06-29 16:09] VITALS: BMI 26.6
== END 2018-06-30 09:21 | disposition home or self-care (01) ==
LOC: ED 12:42
DX: F10.10 Alcohol abuse, uncomplicated (principal)

== ENCOUNTER 2018-07-01 11:57 | Inpatient (IN) | payer MEDICAID, OTHER ==
[2018-07-01 11:59] VITALS: BMI 26.6
[2018-07-01] MEDS ORDERED: Multivitamin (MVI) 10 ML, Thiamine 100 MG, Folic Acid 1 MG in Sodium Chloride 0.9% 1,00... IV ONE (12:16)
--- NOTE | 2018-07-01 12:19 | ED PDOC ---
Arrival/HPI - General Chief Complaint: Alcohol Ingestion Time Seen by Provider: 07/01/18 12:01 Historian: Patient, Welcome Desk Agent (Welcome Desk Agent ID # [id number] - [employer] Welcome Desk Agent) - History of Present Illness Narrative History of Present Illness (Text): 07/01/18 12:13 A 57 year old male, whose past medical history includes hypertension, CAD s/p stents, palpitations, alcohol abuse, and depression,, presents to the emergency department complaining of shortness of breath and left sided chest pain since earlier this morning. Patient reports he was drinking too much and he started experiencing symptoms. Patient states he is also experiencing hallucinations and slight tremors in both hands. Patient denies any fever, chills, diarrhea, nausea, vomiting, back pain, neck pain, headache, dizziness, or any other complaints. PMD: Dr. Hester Time/Duration: 4-6 hours (earlier this morning) Symptom Onset: Gradual Symptom Course: Unchanged Activities at Onset: Light Context: Home Past Medical History - Provider Review Nursing Documentation Reviewed: Yes - Infectious Disease Hx of Infectious Diseases: None - Tetanus Immunization Tetanus Immunization: Unknown - Cardiac Hx Cardiac Disorders: Yes Hx Congestive Heart Failure: Yes (Paroxymal Afib) Hx Hypertension: Yes - Pulmonary Hx Respiratory Disorders: No - Neurological Hx Neurological Disorder: No - HEENT Hx HEENT Disorder: No - Renal Hx Renal Disorder: No - Endocrine/Metabolic Hx Endocrine Disorders: No - Hematological/Oncological Hx Blood Disorders: No - Integumentary Hx Dermatological Disorder: No - Musculoskeletal/Rheumatological Hx Musculoskeletal Disorders: No - Gastrointestinal Hx Gastrointestinal Disorders: No - Genitourinary/Gynecological Hx Genitourinary Disorders: No - Psychiatric Hx Psychophysiologic Disorder: Yes Hx Depression: Yes Hx Substance Use: No Other/Comment: ETOH ABUSE - Past Surgical History Past Surgical History: No Previous - Surgical History Hx Cardiac Catheterization: Yes (x1) Hx Coronary Stent: Yes - Anesthesia Hx Anesthesia: Yes Hx Anesthesia Reactions: No Hx Malignant Hyperthermia: No - Suicidal Assessment Feels Threatened In Home Enviroment: No Family/Social History - Physician Review Nursing Documentation Reviewed: Yes Family/Social History: No Known Family HX Smoking Status: Never Smoked Hx Alcohol Use: Yes (12-14 cans of beer per day) Amount per day: 5 Hx Substance Use: No Hx Substance Use Treatment: No Allergies/Home Meds Allergies/Adverse Reactions: Allergies No Known Allergies Allergy (Verified 04/06/18 19:54) Review of Systems - Physician Review All systems were reviewed & negative as marked: Yes - Review of Systems Constitutional: absent: Fevers, Night Sweats Respiratory: SOB (difficulty breathing) Cardiovascular: Chest Pain (left sided chest pain) Gastrointestinal: absent: Diarrhea, Nausea, Vomiting Musculoskeletal: absent: Back Pain, Neck Pain Neurological: Other (bilateral hand tremors). absent: Headache Psychiatric: Other (hallucinations) Physical Exam - Physical Exam Narrative Physical Exam (Text): 07/01/18 12:15 Gen: VS reviewed, alert, well developed, well nourished, nontoxic, mild distress. ENT: normal pharynx. Eye: EOMI, PERRL. Neck: no JVD, supple, no adenopathy. CV: regular rate, regular rhythm, no rubs, no murmur, no gallops, S1, S2, pulses equal and strong. Pulm: no distress, clear to auscultation, no wheeze, no rhonchi, breath sounds equal, no rales. Abd: soft, nontender, no guarding, no rebound, no rigidity, normal bowel sounds. Ext: no edema. Skin: good color, no rash, no cyanosis. Psych: responds appropriately to questions, normal affect. Neuro: oriented x 3, CN2-12 intact grossly, motor intact, sensation intact. Vital Signs Reviewed: Yes Blood Pressure: Hypertensive Pulse: Tachycardic Respiratory Rate: Normal Medical Decision Making ED Course and Treatment: 07/01/18 12:17 Impression: A 57 year old male presents to the emergency department complaining of shortness of breath and left sided chest pain. Plan: -- EKG -- Labs -- Chest X-ray -- IV fluids -- Ativan -- Reassess and disposition Prior Visits: Notes and results from previous visits were reviewed. Progress Notes: 07/01/18 13:29 patient is less tremulous at this time, speech is less pressured after dose of ativan. patient is very tachy at this time and pulse ox is 85-89% on RA, will extend workup to rule out PE. 07/01/18 14:[address] lowe to the hospitalist service. case was discussed with dr. haas, laborer landscape, after discussion patient is stable for telemetry admit and i agree with this assessment. patient to be admitted for alcohol withdrawal. 07/01/18 14:03 - RAD Interpretation Narrative RAD Interpretations (Text): 07/01/18 12:45 Procedure: Chest X-ray Impression: No active disease. Dictator: Tito Ochoa Radiology Orders: 07/01/18 12:15 CHEST PORTABLE [RAD] Stat Household Refrigeration Mechanic: Radiologist - EKG Interpretation EKG Interpretation (Text): 07/01/18 13:42 [id number]: sinus tachycardia at 112 bpm, nml qrs, nml axis, no acute sttw abn Interpreted by ED Physician: Yes - Medication Orders Current Medication Orders: Multivitamins/Vitamin C 10 ml/Thiamine HCl 100 mg/ Folic Acid 1 mg/ Sodium Chloride 1,011.2 mls @ 150 mls/hr IV .[id number] ONE Stop: 07/01/18 19:00 Discontinued Medications Lorazepam (Ativan) 4 mg IVP ONCE ONE; Protocol Stop: 07/01/18 12:17 Disposition/Present on Arrival - Present on Arrival Any Indicators Present on Arrival: No History of DVT/PE: No History of Uncontrolled Diabetes: No Urinary Catheter: No History of Decub. Ulcer: No History Surgical Site Infection Following: None - Disposition Have Diagnosis and Disposition been Completed?: Yes Diagnosis: Alcohol withdrawal Disposition: HOSPITALIZED Disposition Time: 14:04 Patient Plan: Admission Patient Problems: Current Active Problems Problem Status Onset Alcohol withdrawal Acute Condition: FAIR Referrals: FAMILY PROVIDER,NO [Non-Staff] - Follow up with primary Forms: SPARQ ([place])
[2018-07-01 12:29] LABS: BASO # 0.02 K/mm3 (0.0-2.0); BASO % 0.3 % (0.0-3.0); EOS % 0.2 % (1.5-5.0); GRAN # 3.95 (1.4-6.5); GRAN % 67.4 % (50.0-68.0); HEMOGLOBIN 14.3 g/dL (14.0-18.0); LYMPH # 1.5 (1.2-3.4); LYMPH % 24.9 % (22.0-35.0); MEAN CELL VOLUME 90.8 fl (80.0-105.0); MEAN CORPUSCULAR HEMOGLOBIN 31.9 pg (25.0-35.0); MEAN CORPUSCULAR HGB CONC 35.1 g/dl (31.0-37.0); MEAN PLATELET VOLUME 10.3 fl (7.0-11.0); MONO # 0.4 (0.1-0.6); MONO % 7.2 % (1.0-6.0); RBC 4.48 10^6/uL (3.5-6.1); RED CELL DISTRIBUTION WIDTH 12.7 % (11.5-14.5); WHITE BLOOD COUNT 5.9 10^3/uL (4.5-11.0)
[2018-07-01 12:43] LABS: ALB/GLOB RATIO 1.4 (1.1-1.8); ALBUMIN 4.7 g/dL (3.0-4.8); ALT/SGPT 51 U/L (7-56); AST/SGOT 83 U/L (17-59); BLOOD UREA NITROGEN 13 mg/dL (7-21); CALCIUM 8.7 mg/dL (8.4-10.5); GFR NON-AFRICAN AMERICAN > 60
[2018-07-01 12:51] LABS: TROPONIN I < 0.01 ng/mL
--- NOTE | 2018-07-01 12:56 | RAD ---
Date of service: 07/01/2018 HISTORY: chest pain COMPARISON: 04/06/2018 FINDINGS: LUNGS: No active pulmonary disease. PLEURA: No significant pleural effusion identified, no pneumothorax apparent. CARDIOVASCULAR: No aortic atherosclerotic calcification present. Mild cardiomegaly no pulmonary vascular congestion. OSSEOUS STRUCTURES: No significant abnormalities. VISUALIZED UPPER ABDOMEN: Normal. OTHER FINDINGS: None. IMPRESSION: No active disease.
[2018-07-01 13:12] LABS: CK-MB 1.7 ng/mL (0.0-3.6)
--- NOTE | 2018-07-01 14:55 | CP.PCM.HP ---
<Cielo Guadarrama - Last Filed: 07/01/18 19:26> History of Present Illness - History of Present Illness History of Present Illness: Resident History & Physical for Hospitalist Service Patient is a 57 year old female with past medical history of HTN, CAD, alcohol abuse presenting with chief complaint of generalized body aches and alcohol withdrawal. Patient states that this morning he drank four 12 oz. beers and his last alcohol intake was approximately 11 AM. Patient also states that for the past two weeks he has been drinking around 15 beers a day. Patient has history of recurrent hospitalizations due to alcohol withdrawal. He denies headache, dizziness, tremors, fevers, chills, chest pain, palpitations, shortness of breath, abdominal pain, diarrhea, dysuria. PMH: HTN, CAD, alcohol abuse PSH: cardiac stent placement SHx: drinks approximately 15 beers per day, 4-7 cigarettes for 50 years, denies illicit drug use FHx: none Allergies: NKDA PMD: Dr. Victor Present on Admission - Present on Admission Any Indicators Present on Admission: No Review of Systems - Review of Systems All systems: reviewed and no additional remarkable complaints except (as stated in HPI) Past Patient History - Infectious Disease Hx of Infectious Diseases: None - Tetanus Immunizations Tetanus Immunization: Unknown - Past Social History Smoking Status: Never Smoked - CARDIAC Hx Cardiac Disorders: Yes Hx Congestive Heart Failure: Yes (Paroxymal Afib) Hx Hypertension: Yes - PULMONARY Hx Respiratory Disorders: No - NEUROLOGICAL Hx Neurological Disorder: No - HEENT Hx HEENT Problems: No - RENAL Hx Chronic Kidney Disease: No - ENDOCRINE/METABOLIC Hx Endocrine Disorders: No - HEMATOLOGICAL/ONCOLOGICAL Hx Blood Disorders: No - INTEGUMENTARY Hx Dermatological Problems: No - MUSCULOSKELETAL/RHEUMATOLOGICAL Hx Musculoskeletal Disorders: No - GASTROINTESTINAL Hx Gastrointestinal Disorders: No - GENITOURINARY/GYNECOLOGICAL Hx Genitourinary Disorders: No - PSYCHIATRIC Hx Psychophysiologic Disorder: Yes Hx Depression: Yes Hx Substance Use: No Other/Comment: ETOH ABUSE - SURGICAL HISTORY Hx Cardiac Catheterization: Yes (x1) Hx Coronary Stent: Yes - ANESTHESIA Hx Anesthesia: Yes Hx Anesthesia Reactions: No Hx Malignant Hyperthermia: No Meds Allergies/Adverse Reactions: Allergies Allergy/AdvReac Type Severity Reaction Status Date / Time No Known Allergies Allergy Verified 04/06/18 19:54 Physical Exam - Constitutional Appears: Non-toxic, No Acute Distress Additional comments: lethargic - Head Exam Head Exam: ATRAUMATIC, NORMOCEPHALIC - Eye Exam Eye Exam: EOMI, Normal appearance, PERRL. absent: Scleral icterus - ENT Exam ENT Exam: Mucous Membranes Moist - Neck Exam Neck exam: Positive for: Normal Inspection. Negative for: Lymphadenopathy, Tenderness - Respiratory Exam Respiratory Exam: NORMAL BREATHING PATTERN. absent: Accessory Muscle Use, Rales, Rhonchi, Wheezes, Respiratory Distress - Cardiovascular Exam Cardiovascular Exam: Tachycardia, RRR, +S1, +S2. absent: Systolic Murmur - GI/Abdominal Exam GI & Abdominal Exam: Normal Bowel Sounds, Soft. absent: Distended, Firm, Guarding, Rebound, Rigid, Tenderness - Extremities Exam Extremities exam: Positive for: normal capillary refill, pedal pulses present. Negative for: pedal edema, tenderness - Neurological Exam Neurological exam: Alert, CN II-XII Intact, Oriented x3, Reflexes Normal - Skin Skin Exam: Dry, Intact, Normal Color Results - Vital Signs Recent Vital Signs: Last Vital Signs Temp Pulse 114 H 07/01/18 14:10 Resp 16 07/01/18 14:10 BP 147/93 H 07/01/18 14:10 Pulse Ox 95 07/01/18 14:10 - Labs Result Diagrams: 07/01/18 12:15 07/01/18 12:15 Labs: Laboratory Results - last 24 hr 07/01/18 07/01/18 07/01/18 12:15 12:15 12:15 WBC 5.9 RBC 4.48 Hgb 14.3 D Hct 40.7 L MCV 90.8 MCH 31.9 MCHC 35.1 RDW 12.7 Plt Count 146 MPV 10.3 Gran % 67.4 Lymph % (Auto) 24.9 Hemphill % (Auto) 7.2 H Eos % (Auto) 0.2 L Baso % (Auto) 0.3 Gran # 3.95 Lymph # (Auto) 1.5 [place]phill # (Auto) 0.4 Eos # (Auto) 0.0 Baso # (Auto) 0.02 Sodium 137 Potassium 4.1 Chloride 97 L Carbon Dioxide 26 Anion Gap 18 BUN 13 Creatinine 0.8 Est GFR ( Amer) > 60 Est GFR (Non-Af Amer) > 60 Random Glucose 107 Calcium 8.7 Magnesium 2.3 H Total Bilirubin 0.6 AST 83 H ALT 51 Alkaline Phosphatase 85 Total Creatine Kinase 329 H CK-MB (CK-2) 1.7 CK-MB (CK-2) % Cancelled Troponin I < 0.01 Total Protein 8.0 Albumin 4.7 Globulin 3.3 Albumin/Globulin Ratio 1.4 Alcohol, Quantitative 257 H Assessment & Plan - Assessment and Plan (Free Text) Assessment: Patient is a 57 year old female with past medical history of HTN, CAD, alcohol abuse presenting with chief complaint of generalized body aches and alcohol withdrawal. Plan: Alcohol withdrawal - serum alcohol 257 on admission - Ativan 2 mg Q2H PRN for symptoms related to alcohol withdrawal - banana bag, zofran given in ED - thiamine 100 mg PO QD, multivitamin, folic acid 1 mg PO QD - CIWA protocol - seizure precautions, fall precautions, aspiration precautions CAD - s/p cardiac stent - Aspirin 81mg PO QD HLD - lipid panel in 12/2017 was unremarkable - Lipitor on hold due to mildly elevated CPK PPX - Protonix 40 mg IV daily - SCDs Case discussed with Dr. Ravi Guadarrama PGY-1 - Date & Time Date: 07/01/18 Time: 14:55 <Fredrick Rodrigues - Last Filed: 07/02/18 13:47> Results - Vital Signs Recent Vital Signs: Last Vital Signs Temp 98 F 07/02/18 12:00 Pulse 87 07/02/18 12:00 Resp 19 07/02/18 12:00 BP 146/97 H 07/02/18 12:00 Pulse Ox 98 07/02/18 06:00 - Labs Result Diagrams: 07/02/18 07:00 07/02/18 07:00 Labs: Laboratory Results - last 24 hr 07/01/18 07/01/18 07/01/18 12:04 12:30 19:05 WBC RBC Hgb Hct MCV MCH MCHC RDW Plt Count MPV Gran % Lymph % (Auto) Hemphill % (Auto) Eos % (Auto) Baso % (Auto) Gran # Lymph # (Auto) Hemphill # (Auto) Eos # (Auto) Baso # (Auto) Sodium Potassium Chloride Carbon Dioxide Anion Gap BUN Creatinine Est GFR ( Amer) Est GFR (Non-Af Amer) POC Glucose (mg/dL) 100 Random Glucose Calcium Phosphorus 2.8 Magnesium Total Bilirubin AST ALT Alkaline Phosphatase Total Creatine Kinase Troponin I Total Protein Albumin Globulin Albumin/Globulin Ratio Lipase 376 H Urine Opiates Screen Negative Urine Methadone Screen Negative Ur Barbiturates Screen Negative Ur Phencyclidine Scrn Negative Ur Amphetamines Screen Negative U Benzodiazepines Scrn Negative U Oth Cocaine Metabols Negative U Cannabinoids Screen Negative 07/02/18 07/02/18 07:00 07:00 WBC 5.5 RBC 4.14 Hgb 12.9 L Hct 38.3 L MCV 92.5 MCH 31.2 MCHC 33.7 RDW 13.0 Plt Count 109 L MPV 11.5 H Gran % 63.9 Lymph % (Auto) 26.0 Hemphill % (Auto) 9.2 H Eos % (Auto) 0.4 L Baso % (Auto) 0.5 Gran # 3.49 Lymph # (Auto) 1.4 Hemphill # (Auto) 0.5 Eos # (Auto) 0.0 Baso # (Auto) 0.03 Sodium 136 Potassium 3.4 L Chloride 101 Carbon Dioxide 26 Anion Gap 12 BUN 13 Creatinine 0.7 L Est GFR ( Amer) > 60 Est GFR (Non-Af Amer) > 60 POC Glucose (mg/dL) Random Glucose 67 L Calcium 8.4 Phosphorus 3.2 Magnesium 2.4 H Total Bilirubin 1.2 AST 67 H ALT 43 Alkaline Phosphatase 79 Total Creatine Kinase 198 Troponin I 0.01 Total Protein 7.1 Albumin 3.9 Globulin 3.1 Albumin/Globulin Ratio 1.2 Lipase Urine Opiates Screen Urine Methadone Screen Ur Barbiturates Screen Ur Phencyclidine Scrn Ur Amphetamines Screen U Benzodiazepines Scrn U Oth Cocaine Metabols U Cannabinoids Screen Attending/Attestation - Attestation I have personally seen and examined this patient.: Yes I have fully participated in the care of the patient.: Yes I have reviewed all pertinent clinical information: Yes Notes (Text): Patient seen and examined with the residents, agree with above Ativan prn for withdrawal symptoms, noted to have tremors of the outstretched hands Continue with ivf, supportive care. Advance diet as tolerated thiamine/folate/MVI
--- NOTE | 2018-07-01 15:12 | CARD ---
APPROVED REPORT Date of service: 07/01/2018 EKG Measurement Heart [id number] <Conclusion> Sinus tachycardia Possible Left atrial enlargement Left axis deviation
[2018-07-01] MEDS ORDERED: Iohexol 350 MG/100 ML VIAL ONE (19:14)
[2018-07-01 19:32] LABS: BARBITURATES, UR NEGATIVE (NEGATIVE); BENZODIAZEPINES, UR NEGATIVE (NEGATIVE); OPIATES, UR NEGATIVE (NEGATIVE); PHENCYCLIDINE, UR NEGATIVE (NEGATIVE)
[2018-07-01] MEDS: Sodium Chloride 0.9% 1,000 ML IV SCH (23:09)
--- NOTE | 2018-07-02 07:49 | CP.PCM.PN ---
<Cielo Guadarrama L - Last Filed: 07/02/18 15:56> Subjective - Date & Time of Evaluation Date of Evaluation: 07/02/18 Time of Evaluation: 07:49 - Subjective Subjective: Resident Progress Note for Hospitalist Service Patient examined at bedside. Patient received ativan 2 mg x2 overnight. Patient is tolerating diet well, reports improvement in abdominal pain. Denies headache, dizziness, chest pain, palpitations, shortness of breath, abdominal pain, diarrhea, dysuria. Objective - Vital Signs/Intake and Output Vital Signs (last 24 hours): Temp Pulse Resp BP Pulse Ox 98.7 F 102 H 20 160/92 H 98 07/02/18 06:00 07/02/18 06:00 07/02/18 06:00 07/02/18 06:00 07/02/18 06:00 Intake and Output: 07/02/18 07/02/18 06:59 18:59 Intake Total 540 Balance 540 - Medications Medications: Current Medications Aspirin (Aspirin Chewable) 81 mg PO DAILY [facility] Folic Acid (Folic Acid) 1 mg PO DAILY [facility] Sodium Chloride (Sodium Chloride 0.9%) 1,000 mls @ 100 mls/hr IV .Q10H [facility] Last Admin: 07/01/18 23:09 Dose: 100 mls/hr Lorazepam (Ativan) 2 mg IVP Q2H PRN; Protocol PRN Reason: Symptoms of alcohol withdrawl Last Admin: 07/02/18 01:59 Dose: 2 mg Metoprolol Tartrate (Lopressor) 50 mg PO 0800,1800 [facility] Multivitamins/Minerals (Therapeutic-M Tab) 1 tab PO 0800 [facility] Pantoprazole Sodium (Protonix Inj) 40 mg IVP DAILY [facility] Thiamine HCl (Vitamin B1 Tab) 50 mg PO DAILY [facility] - Labs Labs: 07/01/18 12:15 07/01/18 12:15 - Additional Findings Additional findings: - Constitutional Appears: Non-toxic, No Acute Distress Additional comments: lethargic - Head Exam Head Exam: ATRAUMATIC, NORMOCEPHALIC - Eye Exam Eye Exam: EOMI, Normal appearance, PERRL. absent: Scleral icterus - ENT Exam ENT Exam: Mucous Membranes Moist - Neck Exam Neck exam: Positive for: Normal Inspection. Negative for: Lymphadenopathy, Tenderness - Respiratory Exam Respiratory Exam: NORMAL BREATHING PATTERN. absent: Accessory Muscle Use, Rales, Rhonchi, Wheezes, Respiratory Distress - Cardiovascular Exam Cardiovascular Exam: Tachycardia, RRR, +S1, +S2. absent: Systolic Murmur - GI/Abdominal Exam GI & Abdominal Exam: Normal Bowel Sounds, Soft. absent: Distended, Firm, Guarding, Rebound, Rigid, Tenderness - Extremities Exam Extremities exam: Positive for: normal capillary refill, pedal pulses present. Negative for: pedal edema, tenderness - Neurological Exam Neurological exam: Alert, CN II-XII Intact, Oriented x3, Reflexes Normal, Tremor (mild) - Skin Skin Exam: Dry, Intact, Normal Color Assessment and Plan - Assessment and Plan (Free Text) Assessment: Patient is a 57 year old female with past medical history of HTN, CAD, alcohol abuse presenting with chief complaint of generalized body aches and alcohol withdrawal. Plan: Alcohol withdrawal - serum alcohol 257 on admission - Ativan 2 mg Q2H PRN for symptoms related to alcohol withdrawal - banana bag, zofran given in ED - thiamine 100 mg PO QD, multivitamin, folic acid 1 mg PO QD - [facility] protocol - seizure precautions, fall precautions, aspiration precautions CAD - s/p cardiac stent - Aspirin 81mg PO QD HLD - lipid panel in 12/2017 was unremarkable - Lipitor on hold due to mildly elevated CPK PPX - Protonix 40 mg IV daily - SCDs Case discussed with Dr. Ravi Guadarrama PGY-1 <Fredrick Rodrigues - Last Filed: 07/02/18 16:17> Objective - Vital Signs/Intake and Output Vital Signs (last 24 hours): Temp Pulse Resp BP Pulse Ox 98 F 87 19 146/97 H 98 07/02/18 12:00 07/02/18 12:00 07/02/18 12:00 07/02/18 12:00 07/02/18 06:00 Intake and Output: 07/02/18 07/02/18 06:59 18:59 Intake Total 540 Balance 540 - Medications Medications: Current Medications Aspirin (Aspirin Chewable) 81 mg PO DAILY [facility] Last Admin: 07/02/18 09:46 Dose: 81 mg Folic Acid (Folic Acid) 1 mg PO DAILY [facility] Last Admin: 07/02/18 09:46 Dose: 1 mg Lorazepam (Ativan) 2 mg IVP Q2H PRN; Protocol PRN Reason: Symptoms of alcohol withdrawl Last Admin: 07/02/18 01:59 Dose: 2 mg Metoprolol Tartrate (Lopressor) 50 mg PO 0800,1800 [facility] Last Admin: 07/02/18 09:46 Dose: 50 mg Multivitamins/Minerals (Therapeutic-M Tab) 1 tab PO 0800 [facility] Last Admin: 07/02/18 09:53 Dose: 1 tab Pantoprazole Sodium (Protonix Inj) 40 mg IVP DAILY [facility] Last Admin: 07/02/18 09:47 Dose: 40 mg Thiamine HCl (Vitamin B1 Tab) 50 mg PO DAILY [facility] Last Admin: 07/02/18 09:53 Dose: 50 mg - Labs Labs: 07/02/18 07:00 07/02/18 07:00 Attending/Attestation - Attestation I have personally seen and examined this patient.: Yes I have fully participated in the care of the patient.: Yes I have reviewed all pertinent clinical information, including history, physical exam and plan: Yes Notes (Text): Patient seen and examined with the residents, agree with above monitor for DT's mild tremors of the outstretched hands; continue with Ativan thiamine/folate/MVI advance diet as tolerated
[2018-07-02 08:03] LABS: BASO # 0.03 K/mm3 (0.0-2.0); BASO % 0.5 % (0.0-3.0); EOS % 0.4 % (1.5-5.0); GRAN # 3.49 (1.4-6.5); GRAN % 63.9 % (50.0-68.0); HEMOGLOBIN 12.9 g/dL (14.0-18.0); LYMPH # 1.4 (1.2-3.4); MEAN CELL VOLUME 92.5 fl (80.0-105.0); MEAN CORPUSCULAR HEMOGLOBIN 31.2 pg (25.0-35.0); MEAN CORPUSCULAR HGB CONC 33.7 g/dl (31.0-37.0); MEAN PLATELET VOLUME 11.5 fl (7.0-11.0); MONO # 0.5 (0.1-0.6); MONO % 9.2 % (1.0-6.0); RBC 4.14 10^6/uL (3.5-6.1); WHITE BLOOD COUNT 5.5 10^3/uL (4.5-11.0)
[2018-07-02 08:26] LABS: ALB/GLOB RATIO 1.2 (1.1-1.8); ALBUMIN 3.9 g/dL (3.0-4.8); ALT/SGPT 43 U/L (7-56); AST/SGOT 67 U/L (17-59); BLOOD UREA NITROGEN 13 mg/dL (7-21); CALCIUM 8.4 mg/dL (8.4-10.5); GFR NON-AFRICAN AMERICAN > 60
[2018-07-02 08:35] LABS: TROPONIN I 0.01 ng/mL
[2018-07-02] MEDS ORDERED: Potassium Chloride 20 mEq ER Tab PO STA (09:23)
--- NOTE | 2018-07-02 09:24 | CT ---
Date of service: 07/01/2018 PROCEDURE: CT Chest with contrast (Pulmonary Angiogram) HISTORY: pulmonary embolism COMPARISON: CT 10/13/2015 TECHNIQUE: Axial computed tomography images were obtained of the chest in the pulmonary arterial phase of enhancement. Coronal and sagittal reformatted images were created and reviewed. Intravenous contrast dose: 100 cc of Omni 350 Radiation dose: Total exam DLP = 444.32 mGy-cm. This CT exam was performed using one or more of the following dose reduction techniques: Automated exposure control, adjustment of the mA and/or kV according to patient size, and/or use of iterative reconstruction technique. FINDINGS: PULMONARY ARTERIES: Unremarkable. No pulmonary embolism. AORTA: No acute findings. No thoracic aortic aneurysm. No aortic atherosclerotic calcification or mural plaque present. LUNGS: Unremarkable. No nodule, mass or pulmonary consolidation. PLEURAL SPACES: Unremarkable. No effusion or pneumothorax. HEART: Unremarkable. No cardiomegaly. No significant pericardial effusion. LYMPH NODES: No lymphadenopathy. BONES, CHEST WALL: Unremarkable. No fracture or destructive lesion OTHER FINDINGS: The report concurs with the preliminary [facility] report IMPRESSION: Unremarkable CT pulmonary angiogram. No pulmonary embolus.
[2018-07-02] MEDS: Multivitamin With Minerals Tab PO SCH (09:53)
[2018-07-02] MEDS: Sodium Chloride 0.9% 1,000 ML IV SCH (10:04)
[2018-07-03 06:24] LABS: BASO # 0.02 K/mm3 (0.0-2.0); BASO % 0.4 % (0.0-3.0); EOS # 0.1 (0.0-0.7); EOS % 1.7 % (1.5-5.0); GRAN # 2.49 (1.4-6.5); GRAN % 54.3 % (50.0-68.0); HEMOGLOBIN 12.4 g/dL (14.0-18.0); LYMPH # 1.5 (1.2-3.4); LYMPH % 31.8 % (22.0-35.0); MEAN CELL VOLUME 92.1 fl (80.0-105.0); MEAN CORPUSCULAR HEMOGLOBIN 30.8 pg (25.0-35.0); MEAN CORPUSCULAR HGB CONC 33.4 g/dl (31.0-37.0); MEAN PLATELET VOLUME 11.5 fl (7.0-11.0); MONO # 0.5 (0.1-0.6); MONO % 11.8 % (1.0-6.0); RBC 4.03 10^6/uL (3.5-6.1); RED CELL DISTRIBUTION WIDTH 12.6 % (11.5-14.5); WHITE BLOOD COUNT 4.6 10^3/uL (4.5-11.0)
[2018-07-03 06:52] LABS: ALB/GLOB RATIO 1.3 (1.1-1.8); ALBUMIN 4.1 g/dL (3.0-4.8); ALT/SGPT 41 U/L (7-56); AST/SGOT 64 U/L (17-59); BLOOD UREA NITROGEN 10 mg/dL (7-21); GFR NON-AFRICAN AMERICAN > 60
[2018-07-03] MEDS: Pantoprazole 40 mg EC Tab PO SCH (07:01)
--- NOTE | 2018-07-03 07:04 | CP.PCM.PN ---
<Cielo Guadarrama L - Last Filed: 07/03/18 13:07> Subjective - Date & Time of Evaluation Date of Evaluation: 07/03/18 Time of Evaluation: 07:04 - Subjective Subjective: Resident Progress Note for Hospitalist Service Patient examined at bedside. No acute events overnight. CIWA score this morning is 6. Patient states he feels much better, is tolerating PO intake. Denies nausea, vomiting, chest pain, shortness of breath, abdominal pain. Objective - Vital Signs/Intake and Output Vital Signs (last 24 hours): Temp Pulse Resp BP Pulse Ox 97.7 F 79 18 154/99 H 96 07/03/18 06:00 07/03/18 06:00 07/03/18 06:00 07/03/18 06:00 07/03/18 06:00 Intake and Output: 07/03/18 07/03/18 06:59 18:59 Intake Total 240 Balance 240 - Medications Medications: Current Medications Aspirin (Aspirin Chewable) 81 mg PO DAILY [facility] Last Admin: 07/02/18 09:46 Dose: 81 mg Folic Acid (Folic Acid) 1 mg PO DAILY [facility] Last Admin: 07/02/18 09:46 Dose: 1 mg Lorazepam (Ativan) 2 mg IVP Q2H PRN; Protocol PRN Reason: Symptoms of alcohol withdrawl Last Admin: 07/02/18 18:23 Dose: 2 mg Metoprolol Tartrate (Lopressor) 50 mg PO 0800,1800 [facility] Last Admin: 07/02/18 18:10 Dose: 50 mg Multivitamins/Minerals (Therapeutic-M Tab) 1 tab PO 0800 [facility] Last Admin: 07/02/18 09:53 Dose: 1 tab Pantoprazole Sodium (Protonix Ec Tab) 40 mg PO 0600 [facility] Thiamine HCl (Vitamin B1 Tab) 50 mg PO DAILY [facility] Last Admin: 07/02/18 09:53 Dose: 50 mg - Labs Labs: 07/03/18 05:30 07/03/18 05:30 - Additional Findings Additional findings: - Constitutional Appears: Non-toxic, No Acute Distress - Head Exam Head Exam: ATRAUMATIC, NORMOCEPHALIC - Eye Exam Eye Exam: EOMI, Normal appearance, PERRL. absent: Scleral icterus - ENT Exam ENT Exam: Mucous Membranes Moist - Neck Exam Neck exam: Positive for: Normal Inspection. Negative for: Lymphadenopathy, Tenderness - Respiratory Exam Respiratory Exam: NORMAL BREATHING PATTERN. absent: Accessory Muscle Use, Rales, Rhonchi, Wheezes, Respiratory Distress - Cardiovascular Exam Cardiovascular Exam: Tachycardia, RRR, +S1, +S2. absent: Systolic Murmur - GI/Abdominal Exam GI & Abdominal Exam: Normal Bowel Sounds, Soft. absent: Distended, Firm, Guarding, Rebound, Rigid, Tenderness - Extremities Exam Extremities exam: Positive for: normal capillary refill, pedal pulses present. Negative for: pedal edema, tenderness - Neurological Exam Neurological exam: Alert, CN II-XII Intact, Oriented x3, Reflexes Normal, Tremor (mild) - Skin Skin Exam: Dry, Intact, Normal Color Assessment and Plan - Assessment and Plan (Free Text) Assessment: Patient is a 57 year old female with past medical history of HTN, CAD, alcohol abuse presenting with chief complaint of generalized body aches and alcohol withdrawal. Plan: Alcohol withdrawal - serum alcohol 257 on admission - Ativan 2 mg Q2H PRN for symptoms of alcohol withdrawal - Ativan 2 mg IV Q6H [facility] - banana bag, zofran given in ED - thiamine 100 mg PO QD, multivitamin, folic acid 1 mg PO QD - CIWA protocol - seizure precautions, fall precautions, aspiration precautions Hypokalemia - monitor and replete Hypertension - Lopressor 75 mg PO BID - Lisinopril 10 mg PO daily added CAD - s/p cardiac stent - Aspirin 81mg PO QD - lipid panel in 12/2017 was unremarkable - Lipitor on hold due to mildly elevated CPK PPX - Protonix 40 mg IV daily - SCDs Case discussed with Dr. Fátima Guadarrama PGY-1 <Swathi Shine - Last Filed: 07/08/18 15:55> Objective - Vital Signs/Intake and Output Vital Signs (last 24 hours): Temp Pulse Resp BP Pulse Ox 97.6 F 78 20 140/91 H 97 07/08/18 06:00 07/08/18 06:00 07/08/18 06:00 07/08/18 06:00 07/08/18 06:00 - Labs Labs: 07/08/18 06:30 07/08/18 06:30 Attending/Attestation - Attestation I have personally seen and examined this patient.: Yes I have fully participated in the care of the patient.: Yes I have reviewed all pertinent clinical information, including history, physical exam and plan: Yes Notes (Text): 07/08/18 15:55 Medical record note made by the resident after discussion with my direction and input after the patient was personally seen and examined by me. I have reviewed the chart and agree that the record accurately reflects by personal performance of the history, physical exam, data review, and medical decision-making, in the course for the patient. I have also personally directed the plan of care.
[2018-07-03] MEDS: Multivitamin With Minerals Tab PO SCH (09:48)
[2018-07-03] MEDS ORDERED: Potassium Chloride 20 mEq ER Tab PO STA ×2 (09:57→11:46)
[2018-07-03 12:11] LABS: BLOOD UREA NITROGEN 11 mg/dL (7-21); CALCIUM 9.2 mg/dL (8.4-10.5); GFR NON-AFRICAN AMERICAN > 60
--- NOTE | 2018-07-03 19:26 | CP.PCM.CON ---
<Mark Elizondo - Last Filed: 07/03/18 19:22> History of Present Illness - History of Present Illness History of Present Illness: PGY-2 ICU consult note for Dr Peralta Mr Smyth is a 57 year old male with past medical history of HTN, CAD, alcohol abuse who presented on 07/01/18 with chief complaint of generalized body aches and alcohol withdrawal. Patient states that on the morning of arrival he drank four 12 oz. beers. Patient also states that for the past two weeks he has been drinking around 15 beers a day. ICU was consulted today for high CIWA scores (in 20s) and agitation with concern for delirium tremens. A code winters was called at approx 6PM today. He was pacing around the room and very hyperactive and agitated and pulled out his IV line. PMH: HTN, CAD, alcohol abuse PSH: cardiac stent placement SHx: drinks approximately 15 beers per day, 4-7 cigarettes for 50 years, denies illicit drug use FHx: none Allergies: NKDA PMD: Dr. Victro Review of Systems - Review of Systems Systems not reviewed;Unavailable: Uncooperative Past Patient History - Infectious Disease Hx of Infectious Diseases: None - Tetanus Immunizations Tetanus Immunization: Unknown - Past Social History Smoking Status: Current Some Days Smoker - CARDIAC Hx Cardiac Disorders: Yes Hx Congestive Heart Failure: Yes (Paroxymal Afib) Hx Hypertension: Yes - PULMONARY Hx Respiratory Disorders: No - NEUROLOGICAL Hx Neurological Disorder: No - HEENT Hx HEENT Problems: No - RENAL Hx Chronic Kidney Disease: No - ENDOCRINE/METABOLIC Hx Endocrine Disorders: No - HEMATOLOGICAL/ONCOLOGICAL Hx Blood Disorders: No - INTEGUMENTARY Hx Dermatological Problems: No - MUSCULOSKELETAL/RHEUMATOLOGICAL Hx Falls: Yes - GASTROINTESTINAL Hx Gastrointestinal Disorders: No - GENITOURINARY/GYNECOLOGICAL Hx Genitourinary Disorders: No - PSYCHIATRIC Hx Psychophysiologic Disorder: Yes Hx Depression: Yes Hx Substance Use: No Other/Comment: ETOH ABUSE - SURGICAL HISTORY Hx Cardiac Catheterization: Yes (x1) Hx Coronary Stent: Yes - ANESTHESIA Hx Anesthesia: Yes Hx Anesthesia Reactions: No Hx Malignant Hyperthermia: No Meds Allergies/Adverse Reactions: Allergies Allergy/AdvReac Type Severity Reaction Status Date / Time No Known Allergies Allergy Verified 04/06/18 19:54 - Medications Medications: Current Medications Aspirin (Aspirin Chewable) 81 mg PO DAILY [facility] Last Admin: 07/03/18 09:48 Dose: 81 mg Folic Acid (Folic Acid) 1 mg PO DAILY [facility] Last Admin: 07/03/18 09:49 Dose: 1 mg Lisinopril (Zestril) 10 mg PO DAILY [facility] Last Admin: 07/03/18 09:48 Dose: 10 mg Lorazepam (Ativan) 2 mg IVP Q2H PRN; Protocol PRN Reason: Symptoms of alcohol withdrawl Last Admin: 07/03/18 13:58 Dose: 2 mg Lorazepam (Ativan) 2 mg IVP Q6H [facility]; Protocol Last Admin: 07/03/18 16:18 Dose: 2 mg Metoprolol Tartrate (Lopressor) 75 mg PO 0800,1800 [facility] Last Admin: 07/03/18 17:22 Dose: 75 mg Multivitamins/Minerals (Therapeutic-M Tab) 1 tab PO 0800 [facility] Last Admin: 07/03/18 09:48 Dose: 1 tab Pantoprazole Sodium (Protonix Ec Tab) 40 mg PO 0600 [facility] Last Admin: 07/03/18 07:01 Dose: 40 mg Thiamine HCl (Vitamin B1 Tab) 50 mg PO DAILY [facility] Last Admin: 07/03/18 12:54 Dose: 50 mg Physical Exam - Additional Findings Additional findings: - Constitutional Appears: Non-toxic, No Acute Distress Additional comments: lethargic - Head Exam Head Exam: ATRAUMATIC, NORMOCEPHALIC - Eye Exam Eye Exam: EOMI, Normal appearance, PERRL. absent: Scleral icterus - ENT Exam ENT Exam: Mucous Membranes Moist - Neck Exam Neck exam: Positive for: Normal Inspection. Negative for: Lymphadenopathy, Tenderness - Respiratory Exam Respiratory Exam: NORMAL BREATHING PATTERN. absent: Accessory Muscle Use, Rales, Rhonchi, Wheezes, Respiratory Distress - Cardiovascular Exam Cardiovascular Exam: Tachycardia, RRR, +S1, +S2. absent: Systolic Murmur - GI/Abdominal Exam GI & Abdominal Exam: Normal Bowel Sounds, Soft. absent: Distended, Firm, Guarding, Rebound, Rigid, Tenderness - Extremities Exam Extremities exam: Positive for: normal capillary refill, pedal pulses present. Negative for: pedal edema, tenderness - Neurological Exam Neurological exam: Alert, CN II-XII Intact, Oriented x3, Reflexes Normal - Skin Skin Exam: Dry, Intact, Normal Color Results - Vital Signs Recent Vital Signs: Last Vital Signs Temp 98.3 F 07/03/18 17:59 Pulse 103 H 07/03/18 17:59 Resp 18 07/03/18 17:59 BP 170/98 H 07/03/18 17:59 Pulse Ox 94 L 07/03/18 17:59 - Labs Result Diagrams: 07/03/18 05:30 07/03/18 11:55 Labs: Laboratory Results - last 24 hr 07/03/18 07/03/18 07/03/18 05:30 05:30 11:55 WBC 4.6 RBC 4.03 Hgb 12.4 L Hct 37.1 L MCV 92.1 MCH 30.8 MCHC 33.4 RDW 12.6 Plt Count 108 L MPV 11.5 H Gran % 54.3 Lymph % (Auto) 31.8 Edgar % (Auto) 11.8 H Eos % (Auto) 1.7 Baso % (Auto) 0.4 Gran # 2.49 Lymph # (Auto) 1.5 Edgar # (Auto) 0.5 Eos # (Auto) 0.1 Baso # (Auto) 0.02 Sodium 136 135 Potassium 3.4 L 3.9 Chloride 102 103 Carbon Dioxide 26 24 Anion Gap 11 12 BUN 10 11 Creatinine 0.7 L 0.7 L Est GFR ( Amer) > 60 > 60 Est GFR (Non-Af Amer) > 60 > 60 Random Glucose 91 107 Calcium 9.0 9.2 Phosphorus 3.2 Total Bilirubin 1.4 H AST 64 H ALT 41 Alkaline Phosphatase 81 Total Protein 7.2 Albumin 4.1 Globulin 3.2 Albumin/Globulin Ratio 1.3 Assessment & Plan - Assessment and Plan (Free Text) Plan: Patient is a 57 year old male with past medical history of HTN, CAD, alcohol abuse - ICU was consulted for agitation, high CIWA scores and concern for potential delerium tremens: Agitation 2/2 Alcohol Withdrawal -On our examination at 19:30 patient was resting comfortably, drowsy, non- cooperative and mildly restless - this behavior is much better compared to earlier in the day around when the code vianey was called -He received a geodon inj 10mg IM at 17:55 and again at 19:07 -He received ativan IVP 2mg at 13:58, 2mg IVP at 16:18, and 2mg IM at 18:52 -We'll change his ativan from 2mg ivp q6h to 1mg ivp q3h scheduled -Maintain ativan 2mg ivp q2h prn -Continue restraints -Patient has pulled out IV access - try to regain IV acces and if not possible give ativan IM -Continue 1:1 sitter -Continue seizure precautions, ciwa assessments, telemetry -We'll reasses the patient every 90 mins for the next few hours to monitor status -At this time patient does not require ICU placement and does not need a precedex drip Hypokalemia - monitor and replete Hypertension - Lopressor 75 mg PO BID - Lisinopril 10 mg PO daily added CAD - s/p cardiac stent - Aspirin 81mg PO QD - lipid panel in 12/2017 was unremarkable - Lipitor on hold due to mildly elevated CPK PPX - Protonix 40 mg IV daily - SCDs Patient seen and discussed with Dr Peralta <Fabienne Peralta - Last Filed: 07/03/18 21:54> Meds - Medications Medications: Current Medications Aspirin (Aspirin Chewable) 81 mg PO DAILY [facility] Last Admin: 07/03/18 09:48 Dose: 81 mg Folic Acid (Folic Acid) 1 mg PO DAILY [facility] Last Admin: 07/03/18 09:49 Dose: 1 mg Dexmedetomidine HCl (Precedex 400mcg/100ml) 400 mcg in 100 mls @ 3.851 mls/hr IV .Q24H PRN; Protocol PRN Reason: Symptoms of alcohol withdrawl Last Titration: 07/03/18 21:53 Dose: 1.5 mcg/kg/hr, 28.883 mls/hr Lisinopril (Zestril) 10 mg PO DAILY [facility] Last Admin: 07/03/18 09:48 Dose: 10 mg Lorazepam (Ativan) 2 mg IVP Q2H PRN; Protocol PRN Reason: Symptoms of alcohol withdrawl Last Admin: 07/03/18 13:58 Dose: 2 mg Lorazepam (Ativan) 1 mg IVP Q3H [facility]; Protocol Last Admin: 07/03/18 20:21 Dose: 1 mg Metoprolol Tartrate (Lopressor) 75 mg PO 0800,1800 [facility] Last Admin: 07/03/18 17:22 Dose: 75 mg Multivitamins/Minerals (Therapeutic-M Tab) 1 tab PO 0800 [facility] Last Admin: 07/03/18 09:48 Dose: 1 tab Pantoprazole Sodium (Protonix Ec Tab) 40 mg PO 0600 [facility] Last Admin: 07/03/18 07:01 Dose: 40 mg Thiamine HCl (Vitamin B1 Tab) 50 mg PO DAILY [facility] Last Admin: 07/03/18 12:54 Dose: 50 mg Results - Vital Signs Recent Vital Signs: Last Vital Signs Temp 98.3 F 07/03/18 17:59 Pulse 103 H 07/03/18 17:59 Resp 18 07/03/18 17:59 BP 170/98 H 07/03/18 17:59 Pulse Ox 94 L 07/03/18 17:59 - Labs Result Diagrams: 07/03/18 05:30 07/03/18 11:55 Labs: Laboratory Results - last 24 hr 07/03/18 07/03/18 07/03/18 05:30 05:30 11:55 WBC 4.6 RBC 4.03 Hgb 12.4 L Hct 37.1 L MCV 92.1 MCH 30.8 MCHC 33.4 RDW 12.6 Plt Count 108 L MPV 11.5 H Gran % 54.3 Lymph % (Auto) 31.8 Edgar % (Auto) 11.8 H Eos % (Auto) 1.7 Baso % (Auto) 0.4 Gran # 2.49 Lymph # (Auto) 1.5 Edgar # (Auto) 0.5 Eos # (Auto) 0.1 Baso # (Auto) 0.02 Sodium 136 135 Potassium 3.4 L 3.9 Chloride 102 103 Carbon Dioxide 26 24 Anion Gap 11 12 BUN 10 11 Creatinine 0.7 L 0.7 L Est GFR ( Amer) > 60 > 60 Est GFR (Non-Af Amer) > 60 > 60 Random Glucose 91 107 Calcium 9.0 9.2 Phosphorus 3.2 Total Bilirubin 1.4 H AST 64 H ALT 41 Alkaline Phosphatase 81 Total Protein 7.2 Albumin 4.1 Globulin 3.2 Albumin/Globulin Ratio 1.3 Attending/Attestation - Attestation I have personally seen and examined this patient.: Yes I have fully participated in the care of the patient.: Yes I have reviewed all pertinent clinical information: Yes
[2018-07-03] MEDS ORDERED: Dexmedetomidine 400mcg/100mL 400 MCG/100 ML BOTTLE IV PRN ×2 (21:00→21:10)
[2018-07-03] MEDS: Dexmedetomidine 400mcg/100mL 400 MCG/100 ML BOTTLE IV PRN (21:40)
[2018-07-04] MEDS: Dexmedetomidine 400mcg/100mL 400 MCG/100 ML BOTTLE IV PRN ×2 (01:01→15:00)
[2018-07-04] MEDS: Pantoprazole 40 mg EC Tab PO SCH (06:11)
[2018-07-04 06:36] LABS: BASO # 0.03 K/mm3 (0.0-2.0); BASO % 0.6 % (0.0-3.0); EOS # 0.2 (0.0-0.7); EOS % 3.1 % (1.5-5.0); GRAN # 3.11 (1.4-6.5); GRAN % 57.1 % (50.0-68.0); HEMOGLOBIN 13.2 g/dL (14.0-18.0); LYMPH # 1.4 (1.2-3.4); LYMPH % 26.2 % (22.0-35.0); MEAN CELL VOLUME 93.8 fl (80.0-105.0); MEAN CORPUSCULAR HEMOGLOBIN 31.4 pg (25.0-35.0); MEAN CORPUSCULAR HGB CONC 33.5 g/dl (31.0-37.0); MEAN PLATELET VOLUME 10.8 fl (7.0-11.0); MONO # 0.7 (0.1-0.6); RBC 4.2 10^6/uL (3.5-6.1); WHITE BLOOD COUNT 5.5 10^3/uL (4.5-11.0)
--- NOTE | 2018-07-04 07:06 | CP.PCM.PN ---
<Cielo Guadarrama L - Last Filed: 07/04/18 16:24> Subjective - Date & Time of Evaluation Date of Evaluation: 07/04/18 Time of Evaluation: 07:05 - Subjective Subjective: Resident Progress Note for Hospitalist Service Patient examined at bedside. Overnight patient was agitated, was given ativan and geodon with no remission. Patient was transferred to ICU and placed on precedex drip and restraints. This morning patient still appears to be agitated, does not answer questions appropriately. Objective - Vital Signs/Intake and Output Vital Signs (last 24 hours): Temp Pulse Resp BP Pulse Ox 99 F 69 16 127/82 96 07/04/18 06:00 07/04/18 06:50 07/04/18 06:50 07/04/18 06:00 07/04/18 06:50 Intake and Output: 07/04/18 07/04/18 06:59 18:59 Intake Total 420.0 Balance 420.0 - Medications Medications: Current Medications Aspirin (Aspirin Chewable) 81 mg PO DAILY [facility] Last Admin: 07/03/18 09:48 Dose: 81 mg Folic Acid (Folic Acid) 1 mg PO DAILY [facility] Last Admin: 07/03/18 09:49 Dose: 1 mg Dexmedetomidine HCl (Precedex 400mcg/100ml) 400 mcg in 100 mls @ 3.851 mls/hr IV .Q24H PRN; Protocol PRN Reason: Symptoms of alcohol withdrawl Last Admin: 07/04/18 01:01 Dose: 0.5 mcg/kg/hr, 9.628 mls/hr Lisinopril (Zestril) 10 mg PO DAILY [facility] Last Admin: 07/03/18 09:48 Dose: 10 mg Lorazepam (Ativan) 2 mg IVP Q2H PRN; Protocol PRN Reason: Symptoms of alcohol withdrawl Last Admin: 07/03/18 13:58 Dose: 2 mg Lorazepam (Ativan) 1 mg IVP Q3H [facility]; Protocol Last Admin: 07/04/18 04:50 Dose: 1 mg Metoprolol Tartrate (Lopressor) 75 mg PO 0800,1800 [facility] Last Admin: 07/03/18 17:22 Dose: 75 mg Multivitamins/Minerals (Therapeutic-M Tab) 1 tab PO 0800 [facility] Last Admin: 07/03/18 09:48 Dose: 1 tab Pantoprazole Sodium (Protonix Ec Tab) 40 mg PO 0600 [facility] Last Admin: 07/04/18 06:11 Dose: 40 mg Thiamine HCl (Vitamin B1 Tab) 50 mg PO DAILY [facility] Last Admin: 07/03/18 12:54 Dose: 50 mg - Labs Labs: 07/04/18 05:25 07/03/18 11:55 - Additional Findings Additional findings: - Constitutional Appears: Non-toxic, Agitated - Head Exam Head Exam: ATRAUMATIC, NORMOCEPHALIC - Eye Exam Eye Exam: EOMI, Normal appearance, PERRL. absent: Scleral icterus - ENT Exam ENT Exam: Mucous Membranes Moist - Respiratory Exam Respiratory Exam: NORMAL BREATHING PATTERN. absent: Accessory Muscle Use, Respiratory Distress - Cardiovascular Exam Cardiovascular Exam: Tachycardia, RRR, +S1, +S2 - GI/Abdominal Exam GI & Abdominal Exam: Soft. absent: Distended, Firm, Guarding, Rebound, Rigid, Tenderness - Neurological Exam Neurological exam: Alert - Skin Skin Exam: Dry, Intact, Normal Color Assessment and Plan - Assessment and Plan (Free Text) Assessment: Patient is a 57 year old female with past medical history of HTN, CAD, alcohol abuse presenting with chief complaint of generalized body aches and alcohol withdrawal, now admitted to ICU. Plan: Alcohol withdrawal - on precedex drip - 1:1 sitter - serum alcohol 257 on admission - Ativan 2 mg Q2H PRN for symptoms of alcohol withdrawal - Ativan 2 mg IV Q6H [facility] - thiamine 100 mg PO QD, multivitamin, folic acid 1 mg PO QD - [facility] protocol - seizure precautions, fall precautions, aspiration precautions Hypokalemia - monitor and replete Hypertension - Lopressor 75 mg PO BID - Lisinopril 10 mg PO daily added CAD - s/p cardiac stent - Aspirin 81mg PO QD - lipid panel in 12/2017 was unremarkable - Lipitor on hold due to mildly elevated CPK PPX - Protonix 40 mg IV daily - SCDs Case discussed with Dr. Fátima Guadarrama PGY-1 <Swathi Shine - Last Filed: 07/08/18 15:54> Objective - Vital Signs/Intake and Output Vital Signs (last 24 hours): Temp Pulse Resp BP Pulse Ox 97.6 F 78 20 140/91 H 97 07/08/18 06:00 07/08/18 06:00 07/08/18 06:00 07/08/18 06:00 07/08/18 06:00 - Labs Labs: 07/08/18 06:30 07/08/18 06:30 Attending/Attestation - Attestation I have personally seen and examined this patient.: Yes I have fully participated in the care of the patient.: Yes I have reviewed all pertinent clinical information, including history, physical exam and plan: Yes Notes (Text): 07/08/18 15:54 Medical record note made by the resident after discussion with my direction and input after the patient was personally seen and examined by me. I have reviewed the chart and agree that the record accurately reflects by personal performance of the history, physical exam, data review, and medical decision-making, in the course for the patient. I have also personally directed the plan of care.
--- NOTE | 2018-07-04 07:43 | CP.CCUPN ---
<Dallas Morfin - Last Filed: 07/04/18 11:10> CCU Subjective - Physician Review Subjective (Free Text): 07/04/18 10:54 Tera Morfin PGY2 - ICU Progress Note Patient seen and examined this AM. Patient agitated overnight requiring transfer to ICU for precedex. Patient this AM is alert and oriented with mumbled but understandable speech. 1:1 sitter is at bedside. Patient is aware of setting, city, and year. He has poor recall of transpiring events that lead him to the ICU. He denies tremors, chest pain, shortness of breath, headache, fever, chills, nausea, vomiting, abdominal pain, focal deficits, urinary complaints. CCU Objective - Vital Signs / Intake & Output Vital Signs (Last 4 hours): Vital Signs Temp Pulse Resp BP Pulse Ox 07/04/18 06:50 69 16 96 07/04/18 06:40 65 18 96 07/04/18 06:30 81 15 95 07/04/18 06:20 66 17 96 07/04/18 06:10 90 22 96 07/04/18 06:00 99 F 66 127/82 07/04/18 05:59 60 15 95 07/04/18 05:50 61 16 98 07/04/18 05:40 59 L 16 99 07/04/18 05:30 61 15 98 07/04/18 05:20 60 15 99 07/04/18 05:10 60 15 99 07/04/18 05:01 59 L 15 153/88 H 99 07/04/18 05:00 59 L 15 97 07/04/18 04:50 60 15 100 07/04/18 04:40 66 17 97 07/04/18 04:30 63 14 94 L 07/04/18 04:20 64 17 97 07/04/18 04:13 72 13 07/04/18 04:10 74 20 95 07/04/18 04:00 73 21 104/73 93 L 07/04/18 03:50 75 18 95 Intake and Output (Last 8hrs): Intake & Output 07/03/18 07/04/18 07/04/18 22:59 06:59 14:59 Intake Total 0 420.0 Balance 0 420.0 Weight 170 lb Intake: IV 0 300.0 Left Antecubital 200 Oral 120 Other: # Bowel Movements 0 - Physical Exam Physical Exam Limitations: Positive for: Other (appears older than stated age) Head: Positive for: Atraumatic, Normocephalic Pupils: Positive for: PERRL Extroacular Muscles: Positive for: EOMI Conjunctiva: Positive for: Normal Mouth: Positive for: Moist Mucous Membranes Neck: Positive for: Normal Range of Motion Respiratory/Chest: Positive for: Clear to Auscultation, Good Air Exchange. Negative for: Respiratory Distress Cardiovascular: Positive for: Regular Rate and Rhythm, Normal S1, S2, Tachycardic Abdomen: Positive for: Normal Bowel Sounds. Negative for: Tenderness, Distention, Rebound, Guarding Upper Extremity: Positive for: Normal Inspection. Negative for: Cyanosis, Edema Lower Extremity: Positive for: Normal Inspection. Negative for: Edema, CALF TENDERNESS, Swelling Neurological: Positive for: Motor Func Grossly Intact, Normal Sensory Function Skin: Positive for: Warm, Dry. Negative for: Diaphoretic Psychiatric: Positive for: Alert, Oriented x 3 - Medications Active Medications: Active Medications Generic Name Dose Route Start Last Admin Trade Name Freq PRN Reason Stop Dose Admin Aspirin 81 mg 07/02/18 10:00 07/03/18 09:48 Aspirin Chewable PO 81 mg DAILY [facility] Administration Folic Acid 1 mg 07/02/18 10:00 07/03/18 09:49 Folic Acid PO 1 mg DAILY [facility] Administration Dexmedetomidine HCl 400 mcg in 100 mls @ 3.851 mls/hr 07/03/18 21:19 07/04/18 01:01 Precedex 400mcg/100ml IV 0.5 mcg/kg/hr .Q24H PRN 9.628 mls/hr Symptoms of alcohol withdrawl Administration Protocol 0.2 MCG/KG/HR Lisinopril 10 mg 07/03/18 10:00 07/03/18 09:48 Zestril PO 10 mg DAILY [facility] Administration Lorazepam 2 mg 07/01/18 15:13 07/03/18 13:58 Ativan IVP 2 mg Q2H PRN Administration Symptoms of alcohol withdrawl Protocol Lorazepam 1 mg 07/03/18 19:45 07/04/18 04:50 Ativan IVP 1 mg Q3H [facility] Administration Protocol Metoprolol Tartrate 75 mg 07/03/18 09:21 07/03/18 17:22 Lopressor PO 75 mg 0800,1800 [facility] Administration Multivitamins/Minerals 1 tab 07/02/18 08:00 07/03/18 09:48 Therapeutic-M Tab PO 1 tab 0800 [facility] Administration Pantoprazole Sodium 40 mg 07/03/18 06:00 07/04/18 06:11 Protonix Ec Tab PO 40 mg 0600 [facility] Administration Thiamine HCl 50 mg 07/02/18 10:00 07/03/18 12:54 Vitamin B1 Tab PO 50 mg DAILY [facility] Administration - Patient Studies Lab Studies: Lab Studies 07/04/18 07/03/18 07/03/18 Range/Units 05:25 11:55 05:30 WBC 5.5 (4.5-11.0) 10^3/uL RBC 4.20 (3.5-6.1) 10^6/uL Hgb 13.2 L (14.0-18.0) g/dL Hct 39.4 L (42.0-52.0) % MCV 93.8 (80.0-105.0) fl MCH 31.4 (25.0-35.0) pg MCHC 33.5 (31.0-37.0) g/dl RDW 13.0 (11.5-14.5) % Plt Count 110 L (120.0-450.0) 10^3/uL MPV 10.8 (7.0-11.0) fl Gran % 57.1 (50.0-68.0) % Lymph % (Auto) 26.2 (22.0-35.0) % [place] % (Auto) 13.0 H (1.0-6.0) % Eos % (Auto) 3.1 (1.5-5.0) % Baso % (Auto) 0.6 (0.0-3.0) % Gran # 3.11 (1.4-6.5) Lymph # (Auto) 1.4 (1.2-3.4) [place] # (Auto) 0.7 H (0.1-0.6) Eos # (Auto) 0.2 (0.0-0.7) Baso # (Auto) 0.03 (0.0-2.0) K/mm3 Sodium 135 (132-148) mmol/L Potassium 3.9 3.4 L (3.6-5.0) mmol/L Chloride 103 (98-107) mmol/L Carbon Dioxide 24 (21-33) mmol/L Anion Gap 12 11 (10-20) BUN 11 (7-21) mg/dL Creatinine 0.7 L (0.8-1.5) mg/dl Est GFR ( Amer) > 60 Est GFR (Non-Af Amer) > 60 Random Glucose 107 (70-110) mg/dL Calcium 9.2 (8.4-10.5) mg/dL Laboratory Results - last 24 hr 07/03/18 07/03/18 07/04/18 05:30 11:55 05:25 WBC 5.5 RBC 4.20 Hgb 13.2 L Hct 39.4 L MCV 93.8 MCH 31.4 MCHC 33.5 RDW 13.0 Plt Count 110 L MPV 10.8 Gran % 57.1 Lymph % (Auto) 26.2 [place] % (Auto) 13.0 H Eos % (Auto) 3.1 Baso % (Auto) 0.6 Gran # 3.11 Lymph # (Auto) 1.4 [place] # (Auto) 0.7 H Eos # (Auto) 0.2 Baso # (Auto) 0.03 Sodium 135 Potassium 3.4 L 3.9 Chloride 103 Carbon Dioxide 24 Anion Gap 11 12 BUN 11 Creatinine 0.7 L Est GFR ( Amer) > 60 Est GFR (Non-Af Amer) > 60 Random Glucose 107 Calcium 9.2 Review of Systems - Review of Systems All systems: reviewed and no additional remarkable complaints except (as mentioned in HPI) Critical Care Progress Note - Nutrition Nutrition: Nutrition Category Date Time Status NPO Diet [DIET] Diets 07/03/18 Breakfast Ordered Assessment/Plan - Assessment and Plan (Free Text) Assessment: 57 year old male with past medical history of HTN, CAD, chronic alcohol abuse who was brought to the ICU for agitation secondary to alcohol withdrawal Plan: ETOH Withdrawal HTN CAD Elevated CPK Elevated LFT likely 2/2 ETOH - Continue ativan q2H, ativan 1mg Q3H - Consider Librium, continue FA, Thiamine, MV - Continue CIWA protocol, monitor VS - Continue Lopressor, Lisinopril - Holding Statin 2/2 elevated CPK - Continue ASA - Maintain SaO2 >90% - Maintain MAP>65 - Maintain euvolemia, monitor and replete lytes as needed - GI/DVT ppx - Patient to be monitored in ICU Patient seen, case and plan discussed with attending <Hari Jones - Last Filed: 07/04/18 15:11> CCU Objective - Vital Signs / Intake & Output Intake and Output (Last 8hrs): Intake & Output 07/04/18 07/04/18 07/04/18 06:59 14:59 22:59 Intake Total 420.0 Balance 420.0 Weight 170 lb Intake: IV 300.0 Left Antecubital 200 Oral 120 Other: # Bowel Movements 0 - Medications Active Medications: Active Medications Generic Name Dose Route Start Last Admin Trade Name Freq PRN Reason Stop Dose Admin Aspirin 81 mg 07/02/18 10:00 07/04/18 10:01 Aspirin Chewable PO 81 mg DAILY [facility] Administration Folic Acid 1 mg 07/02/18 10:00 07/04/18 10:02 Folic Acid PO 1 mg DAILY [facility] Administration Dexmedetomidine HCl 400 mcg in 100 mls @ 3.851 mls/hr 07/03/18 21:19 07/04/18 01:01 Precedex 400mcg/100ml IV 0.5 mcg/kg/hr .Q24H PRN 9.628 mls/hr Symptoms of alcohol withdrawl Administration Protocol 0.2 MCG/KG/HR Lisinopril 10 mg 07/03/18 10:00 07/04/18 10:01 Zestril PO 10 mg DAILY [facility] Administration Lorazepam 2 mg 07/01/18 15:13 07/04/18 14:19 Ativan IVP 2 mg Q2H PRN Administration Symptoms of alcohol withdrawl Protocol Lorazepam 1 mg 07/03/18 19:45 07/04/18 12:48 Ativan IVP 1 mg Q3H [facility] Administration Protocol Metoprolol Tartrate 75 mg 07/03/18 09:21 07/04/18 08:50 Lopressor PO Not Given 0800,1800 [facility] Multivitamins/Minerals 1 tab 07/02/18 08:00 07/04/18 10:02 Therapeutic-M Tab PO 1 tab 0800 [facility] Administration Pantoprazole Sodium 40 mg 07/03/18 06:00 07/04/18 06:11 Protonix Ec Tab PO 40 mg 0600 [facility] Administration Thiamine HCl 50 mg 07/02/18 10:00 07/04/18 10:04 Vitamin B1 Tab PO 50 mg DAILY [facility] Administration - Patient Studies Lab Studies: Lab Studies 07/04/18 07/04/18 Range/Units 05:25 05:25 WBC 5.5 (4.5-11.0) 10^3/uL RBC 4.20 (3.5-6.1) 10^6/uL Hgb 13.2 L (14.0-18.0) g/dL Hct 39.4 L (42.0-52.0) % MCV 93.8 (80.0-105.0) fl MCH 31.4 (25.0-35.0) pg MCHC 33.5 (31.0-37.0) g/dl RDW 13.0 (11.5-14.5) % Plt Count 110 L (120.0-450.0) 10^3/uL MPV 10.8 (7.0-11.0) fl Gran % 57.1 (50.0-68.0) % Lymph % (Auto) 26.2 (22.0-35.0) % [place] % (Auto) 13.0 H (1.0-6.0) % Eos % (Auto) 3.1 (1.5-5.0) % Baso % (Auto) 0.6 (0.0-3.0) % Gran # 3.11 (1.4-6.5) Lymph # (Auto) 1.4 (1.2-3.4) [place] # (Auto) 0.7 H (0.1-0.6) Eos # (Auto) 0.2 (0.0-0.7) Baso # (Auto) 0.03 (0.0-2.0) K/mm3 Sodium 142 (132-148) mmol/L Potassium 3.9 (3.6-5.0) mmol/L Chloride 108 H (98-107) mmol/L Carbon Dioxide 24 (21-33) mmol/L Anion Gap 14 (10-20) BUN 11 (7-21) mg/dL Creatinine 0.7 L (0.8-1.5) mg/dl Est GFR ( Amer) > 60 Est GFR (Non-Af Amer) > 60 Random Glucose 111 H (70-110) mg/dL Calcium 9.4 (8.4-10.5) mg/dL Phosphorus 4.7 H (2.5-4.5) mg/dL Magnesium 2.4 H (1.7-2.2) mg/dL Total Bilirubin 1.1 (0.2-1.3) mg/dL AST 63 H (17-59) U/L ALT 43 (7-56) U/L Alkaline Phosphatase 72 (38-126) U/L Total Protein 8.0 (5.8-8.3) g/dL Albumin 4.5 (3.0-4.8) g/dL Globulin 3.6 gm/dL Albumin/Globulin Ratio 1.3 (1.1-1.8) Laboratory Results - last 24 hr 07/04/18 07/04/18 05:25 05:25 WBC 5.5 RBC 4.20 Hgb 13.2 L Hct 39.4 L MCV 93.8 MCH 31.4 MCHC 33.5 RDW 13.0 Plt Count 110 L MPV 10.8 Gran % 57.1 Lymph % (Auto) 26.2 [place] % (Auto) 13.0 H Eos % (Auto) 3.1 Baso % (Auto) 0.6 Gran # 3.11 Lymph # (Auto) 1.4 [place] # (Auto) 0.7 H Eos # (Auto) 0.2 Baso # (Auto) 0.03 Sodium 142 Potassium 3.9 Chloride 108 H Carbon Dioxide 24 Anion Gap 14 BUN 11 Creatinine 0.7 L Est GFR ( Amer) > 60 Est GFR (Non-Af Amer) > 60 Random Glucose 111 H Calcium 9.4 Phosphorus 4.7 H Magnesium 2.4 H Total Bilirubin 1.1 AST 63 H ALT 43 Alkaline Phosphatase 72 Total Protein 8.0 Albumin 4.5 Globulin 3.6 Albumin/Globulin Ratio 1.3 Critical Care Progress Note - Nutrition Nutrition: Nutrition Category Date Time Status Heart Healthy Diet [DIET] Diets 07/04/18 Lunch Active Assessment/Plan - Assessment and Plan (Free Text) Plan: Patient seen and examined on rounds, with resident, agree with note with following additions/exceptions: Patient is 57yo male with PMhx of GIB, heavy EtOH abuse, admitted to floor with ETOH abuse, withdrawal, transferred to MICU for further mgmt of EtOH withdrawal requiring Precedex drip. Currently awake, alert, confused, in withdrawal, on Precedex drip Labs, imaging, chart reviewed EtOH abuse EtOH withdrawal Hx GIB Dehydration Recommend: - supp o2 as needed,dunebs PRN - panculture, UCx, BCx, Procal - monitor off Abx - Precedex gtt - Folic acid, MVT, thiamine - GI ppx - DVT ppx - Monitor in MICU
[2018-07-04 08:00] LABS: ALB/GLOB RATIO 1.3 (1.1-1.8); ALBUMIN 4.5 g/dL (3.0-4.8); ALT/SGPT 43 U/L (7-56); AST/SGOT 63 U/L (17-59); BLOOD UREA NITROGEN 11 mg/dL (7-21); CALCIUM 9.4 mg/dL (8.4-10.5); GFR NON-AFRICAN AMERICAN > 60
[2018-07-04] MEDS: Multivitamin With Minerals Tab PO SCH (10:02)
[2018-07-05] MEDS: Dexmedetomidine 400mcg/100mL 400 MCG/100 ML BOTTLE IV PRN ×2 (00:11→06:53)
[2018-07-05] MEDS: Pantoprazole 40 mg EC Tab PO SCH (06:54)
[2018-07-05 06:55] LABS: BASO # 0.02 K/mm3 (0.0-2.0); BASO % 0.3 % (0.0-3.0); EOS # 0.2 (0.0-0.7); EOS % 3.6 % (1.5-5.0); GRAN # 3.63 (1.4-6.5); GRAN % 54.9 % (50.0-68.0); LYMPH # 1.9 (1.2-3.4); LYMPH % 28.2 % (22.0-35.0); MEAN CELL VOLUME 93.2 fl (80.0-105.0); MEAN CORPUSCULAR HEMOGLOBIN 31.7 pg (25.0-35.0); MEAN CORPUSCULAR HGB CONC 34.1 g/dl (31.0-37.0); MEAN PLATELET VOLUME 10.6 fl (7.0-11.0); MONO # 0.9 (0.1-0.6); RBC 4.41 10^6/uL (3.5-6.1); RED CELL DISTRIBUTION WIDTH 12.8 % (11.5-14.5); WHITE BLOOD COUNT 6.6 10^3/uL (4.5-11.0)
--- NOTE | 2018-07-05 06:58 | CP.PCM.PN ---
<Cielo Guadarrama L - Last Filed: 07/05/18 17:48> Subjective - Date & Time of Evaluation Date of Evaluation: 07/05/18 Time of Evaluation: 06:57 - Subjective Subjective: Resident Progress Note for Hospitalist Service Patient examined at bedside. No acute events overnight. Patient now off precedex and wrist restraints are discontinued. 1:1 sitter is present at bedside. Objective - Vital Signs/Intake and Output Vital Signs (last 24 hours): Temp Pulse Resp BP Pulse Ox 97.3 F L 67 18 105/72 94 L 07/05/18 05:03 07/05/18 05:02 07/05/18 01:45 07/05/18 05:03 07/04/18 18:00 Intake and Output: 07/04/18 07/05/18 18:59 06:59 Intake Total 426.8 100 Balance 426.8 100 - Medications Medications: Current Medications Aspirin (Aspirin Chewable) 81 mg PO DAILY [facility] Last Admin: 07/04/18 10:01 Dose: 81 mg Folic Acid (Folic Acid) 1 mg PO DAILY [facility] Last Admin: 07/04/18 10:02 Dose: 1 mg Dexmedetomidine HCl (Precedex 400mcg/100ml) 400 mcg in 100 mls @ 3.851 mls/hr IV .Q24H PRN; Protocol PRN Reason: Symptoms of alcohol withdrawl Last Admin: 07/05/18 00:11 Dose: 1 mcg/kg/hr, 19.255 mls/hr Lisinopril (Zestril) 10 mg PO DAILY [facility] Last Admin: 07/04/18 10:01 Dose: 10 mg Lorazepam (Ativan) 2 mg IVP Q2H PRN; Protocol PRN Reason: Symptoms of alcohol withdrawl Last Admin: 07/04/18 23:10 Dose: 2 mg Lorazepam (Ativan) 1 mg IVP Q3H [facility]; Protocol Last Admin: 07/04/18 22:45 Dose: Not Given Metoprolol Tartrate (Lopressor) 75 mg PO 0800,1800 [facility] Last Admin: 07/04/18 18:33 Dose: 75 mg Multivitamins/Minerals (Therapeutic-M Tab) 1 tab PO 0800 [facility] Last Admin: 07/04/18 10:02 Dose: 1 tab Pantoprazole Sodium (Protonix Ec Tab) 40 mg PO 0600 [facility] Last Admin: 07/04/18 06:11 Dose: 40 mg Thiamine HCl (Vitamin B1 Tab) 50 mg PO DAILY [facility] Last Admin: 07/04/18 10:04 Dose: 50 mg - Labs Labs: 07/05/18 06:40 07/04/18 05:25 - Additional Findings Additional findings: - Constitutional Appears: Non-toxic, No Acute Distress - Head Exam Head Exam: ATRAUMATIC, NORMOCEPHALIC - Eye Exam Eye Exam: EOMI, Normal appearance, PERRL. absent: Scleral icterus - ENT Exam ENT Exam: Mucous Membranes Moist - Respiratory Exam Respiratory Exam: NORMAL BREATHING PATTERN. absent: Accessory Muscle Use, Res piratory Distress - Cardiovascular Exam Cardiovascular Exam: Tachycardia, RRR, +S1, +S2 - GI/Abdominal Exam GI & Abdominal Exam: Soft. absent: Distended, Firm, Guarding, Rebound, Rigid, Tenderness - Neurological Exam Neurological exam: Alert - Skin Skin Exam: Dry, Intact, Normal Color Assessment and Plan - Assessment and Plan (Free Text) Assessment: Patient is a 57 year old female with past medical history of HTN, CAD, alcohol abuse presenting with chief complaint of generalized body aches and alcohol withdrawal, now admitted to ICU. Plan: Alcohol withdrawal - off precedex drip - 1:1 sitter - serum alcohol 257 on admission - Ativan 1 mg Q4H PRN for symptoms of alcohol withdrawal - Librium 25 mg PO Q8 - thiamine 100 mg PO QD, multivitamin, folic acid 1 mg PO QD - [facility] protocol - seizure precautions, fall precautions, aspiration precautions Hypokalemia - monitor and replete Hypertension - Lopressor 75 mg PO BID - Lisinopril 10 mg PO daily added CAD - s/p cardiac stent - Aspirin 81mg PO QD - lipid panel in 12/2017 was unremarkable - Lipitor on hold due to mildly elevated CPK PPX - Protonix 40 mg PO daily - SCDs Case discussed with Dr. Fátima Guadarrama PGY-1 <Swathi Shine - Last Filed: 07/08/18 15:54> Objective - Vital Signs/Intake and Output Vital Signs (last 24 hours): Temp Pulse Resp BP Pulse Ox 97.6 F 78 20 140/91 H 97 07/08/18 06:00 07/08/18 06:00 07/08/18 06:00 07/08/18 06:00 07/08/18 06:00 - Labs Labs: 07/08/18 06:30 07/08/18 06:30 Attending/Attestation - Attestation I have personally seen and examined this patient.: Yes I have fully participated in the care of the patient.: Yes I have reviewed all pertinent clinical information, including history, physical exam and plan: Yes Notes (Text): 07/08/18 15:54 Medical record note made by the resident after discussion with my direction and input after the patient was personally seen and examined by me. I have reviewed the chart and agree that the record accurately reflects by personal performance of the history, physical exam, data review, and medical decision-making, in the course for the patient. I have also personally directed the plan of care.
[2018-07-05 07:22] LABS: ALB/GLOB RATIO 1.2 (1.1-1.8); ALBUMIN 4.3 g/dL (3.0-4.8); ALT/SGPT 42 U/L (7-56); AST/SGOT 56 U/L (17-59); BLOOD UREA NITROGEN 17 mg/dL (7-21); CALCIUM 9.6 mg/dL (8.4-10.5); GFR NON-AFRICAN AMERICAN > 60
--- NOTE | 2018-07-05 07:44 | CP.CCUPN ---
<Dallas Morfin - Last Filed: 07/05/18 14:01> CCU Subjective - Physician Review Subjective (Free Text): 07/05/18 0930 Tera Navjot PGY2 - ICU Progress Note Patient seen and evaluated this AM in ICU with sitter at bedside. Patient is somnolent secondary to sedative medication. Patient to continue current therapy in ICU. No nausea, vomiting, fever, chills, tachycardia, elevated blood pressure. According to nursing reports patient was agitated overnight requiring increased titration of precedex. CCU Objective - Vital Signs / Intake & Output Vital Signs (Last 4 hours): Vital Signs Temp Pulse BP 07/05/18 05:03 97.3 F L 105/72 07/05/18 05:02 67 Intake and Output (Last 8hrs): Intake & Output 07/04/18 07/05/18 07/05/18 22:59 06:59 14:59 Intake Total 500 100 Balance 500 100 Intake: IV 100 100 Oral 400 - Physical Exam Head: Positive for: Atraumatic, Normocephalic Pupils: Positive for: PERRL Extroacular Muscles: Positive for: EOMI Conjunctiva: Positive for: Normal Mouth: Positive for: Moist Mucous Membranes Neck: Positive for: Normal Range of Motion Respiratory/Chest: Positive for: Clear to Auscultation, Good Air Exchange. Negative for: Respiratory Distress Cardiovascular: Positive for: Regular Rate and Rhythm, Normal S1, S2, Tachycardic Abdomen: Positive for: Normal Bowel Sounds. Negative for: Tenderness, Distention, Rebound, Guarding Upper Extremity: Positive for: Normal Inspection. Negative for: Cyanosis, Edema Lower Extremity: Positive for: Normal Inspection. Negative for: Edema, CALF TENDERNESS, Swelling Neurological: Positive for: Motor Func Grossly Intact, Normal Sensory Function Skin: Positive for: Warm, Dry. Negative for: Diaphoretic Psychiatric: Positive for: Alert, Oriented x 3 - Medications Active Medications: Active Medications Generic Name Dose Route Start Last Admin Trade Name Freq PRN Reason Stop Dose Admin Aspirin 81 mg 07/02/18 10:00 07/04/18 10:01 Aspirin Chewable PO 81 mg DAILY [facility] Administration Folic Acid 1 mg 07/02/18 10:00 07/04/18 10:02 Folic Acid PO 1 mg DAILY [facility] Administration Dexmedetomidine HCl 400 mcg in 100 mls @ 3.851 mls/hr 07/03/18 21:19 07/05/18 06:53 Precedex 400mcg/100ml IV 1 mcg/kg/hr .Q24H PRN 19.255 mls/hr Symptoms of alcohol withdrawl Administration Protocol 0.2 MCG/KG/HR Lisinopril 10 mg 07/03/18 10:00 07/04/18 10:01 Zestril PO 10 mg DAILY [facility] Administration Lorazepam 2 mg 07/01/18 15:13 07/05/18 05:55 Ativan IVP 2 mg Q2H PRN Administration Symptoms of alcohol withdrawl Protocol Lorazepam 1 mg 07/03/18 19:45 07/05/18 04:50 Ativan IVP Not Given Q3H [facility] Protocol Metoprolol Tartrate 75 mg 07/03/18 09:21 07/04/18 18:33 Lopressor PO 75 mg 0800,1800 [facility] Administration Multivitamins/Minerals 1 tab 07/02/18 08:00 07/04/18 10:02 Therapeutic-M Tab PO 1 tab 0800 [facility] Administration Pantoprazole Sodium 40 mg 07/03/18 06:00 07/05/18 06:54 Protonix Ec Tab PO Not Given 0600 [facility] Thiamine HCl 50 mg 07/02/18 10:00 07/04/18 10:04 Vitamin B1 Tab PO 50 mg DAILY [facility] Administration - Patient Studies Lab Studies: Lab Studies 07/05/18 07/05/18 07/04/18 Range/Units 06:40 06:40 05:25 WBC 6.6 (4.5-11.0) 10^3/uL RBC 4.41 (3.5-6.1) 10^6/uL Hgb 14.0 (14.0-18.0) g/dL Hct 41.1 L (42.0-52.0) % MCV 93.2 (80.0-105.0) fl MCH 31.7 (25.0-35.0) pg MCHC 34.1 (31.0-37.0) g/dl RDW 12.8 (11.5-14.5) % Plt Count 133 (120.0-450.0) 10^3/uL MPV 10.6 (7.0-11.0) fl Gran % 54.9 (50.0-68.0) % Lymph % (Auto) 28.2 (22.0-35.0) % Day % (Auto) 13.0 H (1.0-6.0) % Eos % (Auto) 3.6 (1.5-5.0) % Baso % (Auto) 0.3 (0.0-3.0) % Gran # 3.63 (1.4-6.5) Lymph # (Auto) 1.9 (1.2-3.4) Day # (Auto) 0.9 H (0.1-0.6) Eos # (Auto) 0.2 (0.0-0.7) Baso # (Auto) 0.02 (0.0-2.0) K/mm3 Sodium 138 142 (132-148) mmol/L Potassium 3.6 3.9 (3.6-5.0) mmol/L Chloride 105 108 H (98-107) mmol/L Carbon Dioxide 23 24 (21-33) mmol/L Anion Gap 13 14 (10-20) BUN 17 11 (7-21) mg/dL Creatinine 0.9 0.7 L (0.8-1.5) mg/dl Est GFR ( Amer) > 60 > 60 Est GFR (Non-Af Amer) > 60 > 60 Random Glucose 106 111 H (70-110) mg/dL Calcium 9.6 9.4 (8.4-10.5) mg/dL Phosphorus 4.5 4.7 H (2.5-4.5) mg/dL Magnesium 2.4 H (1.7-2.2) mg/dL Total Bilirubin 1.3 1.1 (0.2-1.3) mg/dL AST 56 63 H (17-59) U/L ALT 42 43 (7-56) U/L Alkaline Phosphatase 83 72 (38-126) U/L Total Protein 7.9 8.0 (5.8-8.3) g/dL Albumin 4.3 4.5 (3.0-4.8) g/dL Globulin 3.6 3.6 gm/dL Albumin/Globulin Ratio 1.2 1.3 (1.1-1.8) Laboratory Results - last 24 hr 07/04/18 07/05/18 07/05/18 05:25 06:40 06:40 WBC 6.6 RBC 4.41 Hgb 14.0 Hct 41.1 L MCV 93.2 MCH 31.7 MCHC 34.1 RDW 12.8 Plt Count 133 MPV 10.6 Gran % 54.9 Lymph % (Auto) 28.2 Day % (Auto) 13.0 H Eos % (Auto) 3.6 Baso % (Auto) 0.3 Gran # 3.63 Lymph # (Auto) 1.9 Day # (Auto) 0.9 H Eos # (Auto) 0.2 Baso # (Auto) 0.02 Sodium 142 138 Potassium 3.9 3.6 Chloride 108 H 105 Carbon Dioxide 24 23 Anion Gap 14 13 BUN 11 17 Creatinine 0.7 L 0.9 Est GFR ( Amer) > 60 > 60 Est GFR (Non-Af Amer) > 60 > 60 Random Glucose 111 H 106 Calcium 9.4 9.6 Phosphorus 4.7 H 4.5 Magnesium 2.4 H Total Bilirubin 1.1 1.3 AST 63 H 56 ALT 43 42 Alkaline Phosphatase 72 83 Total Protein 8.0 7.9 Albumin 4.5 4.3 Globulin 3.6 3.6 Albumin/Globulin Ratio 1.3 1.2 Review of Systems - Review of Systems All systems: reviewed and no additional remarkable complaints except (as mentioned in HPI) Critical Care Progress Note - Nutrition Nutrition: Nutrition Category Date Time Status Heart Healthy Diet [DIET] Diets 07/04/18 Lunch Active Assessment/Plan - Assessment and Plan (Free Text) Assessment: 57 year old male with past medical history of HTN, CAD, chronic alcohol abuse who was brought to the ICU for agitation secondary to alcohol withdrawal. Patient monitored overnight with limited precedex showing agitation requiring re-titration and ativan for agitation. Plan: Neuro: -Somnolent, AAO to person, place, year -Monitor mentation -Continue MV, FA, Thiamine Cardio: Hx HTN, CAD -Continue ASA, Lopressor, Lisinopril -VSS -Maintain MAP >65 -No episodes of tachycardia, elevated BP Pulm: -Maintain SaO2 >92% -Supplemental O2 as needed GI: GI ppx with Protonix HHD Renal: -Maintain euvolemia, replete lytes as necessary ID: -Afebrile, no leukocytosis Psych: ETOH withdrawal - Librium [id number] -Ativan 1mg Q4HPRN -Continue MV, FA, Thiamine GI/DVT ppx -Protonix -SCDs Patient seen, case and plan discussed with attending, Dr. Yeung <Derrick Yeung - Last Filed: 07/05/18 14:54> CCU Objective - Vital Signs / Intake & Output Vital Signs (Last 4 hours): Vital Signs Temp Pulse Resp BP Pulse Ox 07/05/18 14:40 64 15 98 07/05/18 14:30 63 15 98 07/05/18 14:20 63 15 99 07/05/18 14:10 65 18 98 07/05/18 14:02 66 13 07/05/18 14:01 67 16 91/51 L 98 07/05/18 14:00 69 21 98 07/05/18 13:50 77 25 H 98 07/05/18 13:49 73 41 H 07/05/18 13:40 77 27 H 99 07/05/18 13:35 68 20 94/64 L 98 07/05/18 13:30 65 17 99 07/05/18 13:20 68 16 97 07/05/18 13:10 71 17 97 07/05/18 13:00 81/46 L 07/05/18 12:59 68 17 97 07/05/18 12:50 66 16 95 07/05/18 12:40 67 18 97 07/05/18 12:35 65 78 H 07/05/18 12:34 64 134/87 07/05/18 12:30 67 22 97 07/05/18 12:20 67 18 96 07/05/18 12:10 63 15 97 07/05/18 12:00 97.9 F 62 134/87 07/05/18 11:59 62 13 99 07/05/18 11:50 59 L 20 97 07/05/18 11:40 61 16 96 07/05/18 11:30 61 15 98 07/05/18 11:20 61 16 98 07/05/18 11:10 59 L 18 97 07/05/18 11:00 59 L 16 152/90 H 96 Intake and Output (Last 8hrs): Intake & Output 07/04/18 07/05/18 07/05/18 22:59 06:59 14:59 Intake Total 500 100 535 Balance 500 100 535 Intake: IV 100 100 95 Precedex 95 Oral 400 440 - Medications Active Medications: Active Medications Generic Name Dose Route Start Last Admin Trade Name Stacey PRN Reason Stop Dose Admin Aspirin 81 mg 07/02/18 10:00 07/05/18 12:33 Aspirin Chewable PO 81 mg DAILY [facility] Administration Chlordiazepoxide 25 mg 07/05/18 14:00 07/05/18 12:33 Librium PO 25 mg Q8 [facility] Administration Protocol Folic Acid 1 mg 07/02/18 10:00 07/05/18 12:34 Folic Acid PO 1 mg DAILY [facility] Administration Lisinopril 10 mg 07/03/18 10:00 07/05/18 12:34 Zestril PO 10 mg DAILY [facility] Administration Lorazepam 1 mg 07/03/18 19:45 07/05/18 08:43 Ativan IVP Not Given Q3H [facility] Protocol Metoprolol Tartrate 75 mg 07/03/18 09:21 07/05/18 08:43 Lopressor PO Not Given 0800,1800 [facility] Multivitamins/Minerals 1 tab 07/02/18 08:00 07/05/18 12:34 Therapeutic-M Tab PO 1 tab 0800 [facility] Administration Pantoprazole Sodium 40 mg 07/03/18 06:00 07/05/18 06:54 Protonix Ec Tab PO Not Given 0600 [facility] Thiamine HCl 50 mg 07/02/18 10:00 07/05/18 12:35 Vitamin B1 Tab PO 50 mg DAILY [facility] Administration - Patient Studies Lab Studies: Microbiology Studies 07/03/18 22:46 MRSA Culture (Admit) - Final Nose MRSA NOT DETECTED Lab Studies 07/05/18 07/05/18 07/05/18 Range/Units 06:40 06:40 05:00 WBC 6.6 (4.5-11.0) 10^3/uL RBC 4.41 (3.5-6.1) 10^6/uL Hgb 14.0 (14.0-18.0) g/dL Hct 41.1 L (42.0-52.0) % MCV 93.2 (80.0-105.0) fl MCH 31.7 (25.0-35.0) pg MCHC 34.1 (31.0-37.0) g/dl RDW 12.8 (11.5-14.5) % Plt Count 133 (120.0-450.0) 10^3/uL MPV 10.6 (7.0-11.0) fl Gran % 54.9 (50.0-68.0) % Lymph % (Auto) 28.2 (22.0-35.0) % Day % (Auto) 13.0 H (1.0-6.0) % Eos % (Auto) 3.6 (1.5-5.0) % Baso % (Auto) 0.3 (0.0-3.0) % Gran # 3.63 (1.4-6.5) Lymph # (Auto) 1.9 (1.2-3.4) Day # (Auto) 0.9 H (0.1-0.6) Eos # (Auto) 0.2 (0.0-0.7) Baso # (Auto) 0.02 (0.0-2.0) K/mm3 Sodium 138 (132-148) mmol/L Potassium 3.6 (3.6-5.0) mmol/L Chloride 105 (98-107) mmol/L Carbon Dioxide 23 (21-33) mmol/L Anion Gap 13 (10-20) BUN 17 (7-21) mg/dL Creatinine 0.9 (0.8-1.5) mg/dl Est GFR ( Amer) > 60 Est GFR (Non-Af Amer) > 60 Random Glucose 106 (70-110) mg/dL Calcium 9.6 (8.4-10.5) mg/dL Phosphorus 4.5 (2.5-4.5) mg/dL Magnesium 2.2 (1.7-2.2) mg/dL Total Bilirubin 1.3 (0.2-1.3) mg/dL AST 56 (17-59) U/L ALT 42 (7-56) U/L Alkaline Phosphatase 83 (38-126) U/L Total Protein 7.9 (5.8-8.3) g/dL Albumin 4.3 (3.0-4.8) g/dL Globulin 3.6 gm/dL Albumin/Globulin Ratio 1.2 (1.1-1.8) Laboratory Results - last 24 hr 07/05/18 07/05/18 07/05/18 05:00 06:40 06:40 WBC 6.6 RBC 4.41 Hgb 14.0 Hct 41.1 L MCV 93.2 MCH 31.7 MCHC 34.1 RDW 12.8 Plt Count 133 MPV 10.6 Gran % 54.9 Lymph % (Auto) 28.2 Day % (Auto) 13.0 H Eos % (Auto) 3.6 Baso % (Auto) 0.3 Gran # 3.63 Lymph # (Auto) 1.9 Day # (Auto) 0.9 H Eos # (Auto) 0.2 Baso # (Auto) 0.02 Sodium 138 Potassium 3.6 Chloride 105 Carbon Dioxide 23 Anion Gap 13 BUN 17 Creatinine 0.9 Est GFR ( Amer) > 60 Est GFR (Non-Af Amer) > 60 Random Glucose 106 Calcium 9.6 Phosphorus 4.5 Magnesium 2.2 Total Bilirubin 1.3 AST 56 ALT 42 Alkaline Phosphatase 83 Total Protein 7.9 Albumin 4.3 Globulin 3.6 Albumin/Globulin Ratio 1.2 Critical Care Progress Note - Nutrition Nutrition: Nutrition Category Date Time Status Heart Healthy Diet [DIET] Diets 07/04/18 Lunch Active Addendum Addendum: 07/05/18 14:54 ICU Attending Addendum Patient seen and examined. Case reviewed on round with housestaff. Agree with resident note above with the following additions/exceptions: ICU Attending Addendum Patient seen and examined. Case reviewed on round with housestaff. Agree with resident note above with the following additions/exceptions: 57M admitted to ICU for etoh withdrawl /DTs oversedated at the moment on ativan and precedex will stop ativan switch to librium PO and titrate off precedex cont to monitor in ICU Rest of care as above Derrick Yeung MD Pulmonary Critical Care and Sleep Medicine
[2018-07-05] MEDS: Multivitamin With Minerals Tab PO SCH ×2 (08:46→12:34)
[2018-07-06 06:42] LABS: BASO # 0.02 K/mm3 (0.0-2.0); BASO % 0.3 % (0.0-3.0); EOS # 0.1 (0.0-0.7); EOS % 1.7 % (1.5-5.0); GRAN # 3.1 (1.4-6.5); GRAN % 53.3 % (50.0-68.0); HEMOGLOBIN 12.4 g/dL (14.0-18.0); LYMPH # 1.9 (1.2-3.4); LYMPH % 32.5 % (22.0-35.0); MEAN CELL VOLUME 92.5 fl (80.0-105.0); MEAN CORPUSCULAR HEMOGLOBIN 31.1 pg (25.0-35.0); MEAN CORPUSCULAR HGB CONC 33.6 g/dl (31.0-37.0); MEAN PLATELET VOLUME 10.6 fl (7.0-11.0); MONO # 0.7 (0.1-0.6); MONO % 12.2 % (1.0-6.0); RBC 3.99 10^6/uL (3.5-6.1); RED CELL DISTRIBUTION WIDTH 12.9 % (11.5-14.5); WHITE BLOOD COUNT 5.8 10^3/uL (4.5-11.0)
[2018-07-06] MEDS: Pantoprazole 40 mg EC Tab PO SCH (06:49)
[2018-07-06 06:55] LABS: ALB/GLOB RATIO 1.2 (1.1-1.8); ALT/SGPT 47 U/L (7-56); AST/SGOT 70 U/L (17-59); BLOOD UREA NITROGEN 22 mg/dL (7-21); CALCIUM 8.9 mg/dL (8.4-10.5); GFR NON-AFRICAN AMERICAN > 60
[2018-07-06] MEDS ORDERED: Potassium Chloride 20 mEq ER Tab PO ONE (07:13)
[2018-07-06] MEDS: Multivitamin With Minerals Tab PO SCH (08:53)
--- NOTE | 2018-07-06 10:05 | CP.CCUPN ---
<NavjotD[place] - Last Filed: 07/06/18 12:28> CCU Subjective - Physician Review Subjective (Free Text): Tera Morfin PGY2 - ICU Progress Note Patient seen and evaluated this AM in ICU with sitter at bedside. Patient is sitting up in bed alert and oriented x3. Patient is more conversant and reports mild tremulousness. Overnight patient was slightly agitated requiring haldol. Precedex gtt has been off for 24 hours. Patient denies chest pain, shortness of breath, abdominal pain, nausea, vomiting, fever, chills. Denies hallucinations, tachycardia, diaphoresis. CCU Objective - Vital Signs / Intake & Output Vital Signs (Last 4 hours): Vital Signs Pulse BP 07/06/18 09:08 112 H 138/87 07/06/18 09:06 109 H 138/82 Intake and Output (Last 8hrs): Intake & Output 07/05/18 07/06/18 07/06/18 22:59 06:59 14:59 Intake Total 320 Output Total 440 500 Balance -120 -500 Weight 165 lb Intake: Oral 320 Output: Urine 440 500 Urine, Voided 440 500 Other: # Bowel Movements 1 - Physical Exam Head: Positive for: Atraumatic, Normocephalic Pupils: Positive for: PERRL Extroacular Muscles: Positive for: EOMI Conjunctiva: Positive for: Normal Mouth: Positive for: Moist Mucous Membranes Neck: Positive for: Normal Range of Motion Respiratory/Chest: Positive for: Clear to Auscultation, Good Air Exchange. Negative for: Respiratory Distress Cardiovascular: Positive for: Regular Rate and Rhythm, Normal S1, S2, Tachycardic Abdomen: Positive for: Normal Bowel Sounds. Negative for: Tenderness, Distention, Rebound, Guarding Upper Extremity: Positive for: Normal Inspection. Negative for: Cyanosis, Edema Lower Extremity: Positive for: Normal Inspection. Negative for: Edema, CALF TENDERNESS, Swelling Neurological: Positive for: GCS=15, Speech Normal, Motor Func Grossly Intact, Normal Sensory Function Skin: Positive for: Warm, Dry. Negative for: Diaphoretic Psychiatric: Positive for: Alert, Oriented x 3 - Medications Active Medications: Active Medications Generic Name Dose Route Start Last Admin Trade Name Freq PRN Reason Stop Dose Admin Aspirin 81 mg 07/02/18 10:00 07/06/18 09:09 Aspirin Chewable PO 81 mg DAILY [facility] Administration Chlordiazepoxide 10 mg 07/06/18 14:00 Librium PO Q8 [facility] Folic Acid 1 mg 07/02/18 10:00 07/06/18 09:08 Folic Acid PO 1 mg DAILY [facility] Administration Lisinopril 10 mg 07/03/18 10:00 07/06/18 09:08 Zestril PO 10 mg DAILY [facility] Administration Lorazepam 1 mg 07/05/18 16:34 07/05/18 23:51 Ativan IVP 1 mg Q4H PRN Administration Symptoms of alcohol withdrawl Protocol Metoprolol Tartrate 75 mg 07/03/18 09:21 07/06/18 09:06 Lopressor PO 75 mg 0800,1800 [facility] Administration Multivitamins/Minerals 1 tab 07/02/18 08:00 07/06/18 08:53 Therapeutic-M Tab PO 1 tab 0800 [facility] Administration Pantoprazole Sodium 40 mg 07/03/18 06:00 07/06/18 06:49 Protonix Ec Tab PO 40 mg 0600 [facility] Administration Thiamine HCl 50 mg 07/02/18 10:00 07/06/18 09:09 Vitamin B1 Tab PO 50 mg DAILY [facility] Administration - Patient Studies Lab Studies: Microbiology Studies 07/03/18 22:46 MRSA Culture (Admit) - Final Nose MRSA NOT DETECTED Lab Studies 07/06/18 07/06/18 Range/Units 05:25 05:25 WBC 5.8 (4.5-11.0) 10^3/uL RBC 3.99 (3.5-6.1) 10^6/uL Hgb 12.4 L (14.0-18.0) g/dL Hct 36.9 L (42.0-52.0) % MCV 92.5 (80.0-105.0) fl MCH 31.1 (25.0-35.0) pg MCHC 33.6 (31.0-37.0) g/dl RDW 12.9 (11.5-14.5) % Plt Count 161 (120.0-450.0) 10^3/uL MPV 10.6 (7.0-11.0) fl Gran % 53.3 (50.0-68.0) % Lymph % (Auto) 32.5 (22.0-35.0) % [place] % (Auto) 12.2 H (1.0-6.0) % Eos % (Auto) 1.7 (1.5-5.0) % Baso % (Auto) 0.3 (0.0-3.0) % Gran # 3.10 (1.4-6.5) Lymph # (Auto) 1.9 (1.2-3.4) [place] # (Auto) 0.7 H (0.1-0.6) Eos # (Auto) 0.1 (0.0-0.7) Baso # (Auto) 0.02 (0.0-2.0) K/mm3 Sodium 137 (132-148) mmol/L Potassium 3.3 L (3.6-5.0) mmol/L Chloride 106 (98-107) mmol/L Carbon Dioxide 24 (21-33) mmol/L Anion Gap 10 (10-20) BUN 22 H (7-21) mg/dL Creatinine 0.8 (0.8-1.5) mg/dl Est GFR ( Amer) > 60 Est GFR (Non-Af Amer) > 60 Random Glucose 116 H (70-110) mg/dL Calcium 8.9 (8.4-10.5) mg/dL Phosphorus 4.1 (2.5-4.5) mg/dL Magnesium 2.1 (1.7-2.2) mg/dL Total Bilirubin 0.9 (0.2-1.3) mg/dL AST 70 H D (17-59) U/L ALT 47 (7-56) U/L Alkaline Phosphatase 77 (38-126) U/L Total Protein 7.2 (5.8-8.3) g/dL Albumin 4.0 (3.0-4.8) g/dL Globulin 3.3 gm/dL Albumin/Globulin Ratio 1.2 (1.1-1.8) Laboratory Results - last 24 hr 07/06/18 07/06/18 05:25 05:25 WBC 5.8 RBC 3.99 Hgb 12.4 L Hct 36.9 L MCV 92.5 MCH 31.1 MCHC 33.6 RDW 12.9 Plt Count 161 MPV 10.6 Gran % 53.3 Lymph % (Auto) 32.5 [place] % (Auto) 12.2 H Eos % (Auto) 1.7 Baso % (Auto) 0.3 Gran # 3.10 Lymph # (Auto) 1.9 [place] # (Auto) 0.7 H Eos # (Auto) 0.1 Baso # (Auto) 0.02 Sodium 137 Potassium 3.3 L Chloride 106 Carbon Dioxide 24 Anion Gap 10 BUN 22 H Creatinine 0.8 Est GFR ( Amer) > 60 Est GFR (Non-Af Amer) > 60 Random Glucose 116 H Calcium 8.9 Phosphorus 4.1 Magnesium 2.1 Total Bilirubin 0.9 AST 70 H D ALT 47 Alkaline Phosphatase 77 Total Protein 7.2 Albumin 4.0 Globulin 3.3 Albumin/Globulin Ratio 1.2 Review of Systems - Review of Systems All systems: reviewed and no additional remarkable complaints except (as mentioned in HPI) Critical Care Progress Note - Nutrition Nutrition: Nutrition Category Date Time Status Heart Healthy Diet [DIET] Diets 07/04/18 Lunch Active Assessment/Plan - Assessment and Plan (Free Text) Assessment: 57 year old male with past medical history of HTN, CAD, chronic alcohol abuse who was brought to the ICU for agitation secondary to alcohol withdrawal. Patient off of precedex gtt for 24 hours and with minimal agitation exhibited. Plan: Neuro: -AAOx3 -Monitor mentation -Continue MV, FA, Thiamine Cardio: Hx HTN, CAD -Continue ASA, Lopressor, Lisinopril -VSS -Maintain MAP >65 -No episodes of tachycardia, elevated BP Pulm: -Maintain SaO2 >92% -Supplemental O2 as needed GI: -GI ppx with Protonix -HHD Renal: -Maintain euvolemia, replete lytes as necessary ID: -Afebrile, no leukocytosis Psych: ETOH withdrawal -Librium was changed to [id number] -Ativan 1mg Q4HPRN agitation -Continue MV, FA, Thiamine -DC 1:1 sitter GI/DVT ppx -Protonix -SCDs Patient has been off of precedex gtt for 24 hours and showing minimal signs of agitation. Patient to be transferred out of ICU. Patient seen, case and plan discussed with attending, Dr. Yeung <Derrick Yeung - Last Filed: 07/06/18 17:56> CCU Objective - Vital Signs / Intake & Output Vital Signs (Last 4 hours): Vital Signs Temp Pulse Resp BP Pulse Ox 07/06/18 17:23 97.5 F L 07/06/18 17:12 112 H 113/73 07/06/18 17:10 111 H 25 H 97 07/06/18 17:00 99 H 19 113/73 94 L 07/06/18 16:50 106 H 20 88 L 07/06/18 16:40 92 H 97 07/06/18 16:30 86 16 142/84 95 07/06/18 16:20 94 H 18 97 07/06/18 16:10 91 H 19 97 07/06/18 16:00 93 H 25 H 158/112 H 82 L 07/06/18 15:50 88 18 97 07/06/18 15:40 85 19 96 07/06/18 15:30 130/79 07/06/18 15:29 89 24 98 07/06/18 15:20 87 22 96 07/06/18 15:12 90 36 H 07/06/18 15:01 106 H 57 H 07/06/18 15:00 107 H 26 H 154/119 H 75 L 07/06/18 14:50 94 H 21 94 L 07/06/18 14:40 83 20 98 07/06/18 14:30 86 20 148/83 90 L 07/06/18 14:20 101 H 25 H 93 L 07/06/18 14:10 92 H 20 98 07/06/18 14:00 89 22 148/85 92 L Intake and Output (Last 8hrs): Intake & Output 07/06/18 07/06/18 07/06/18 06:59 14:59 22:59 Intake Total 500 Output Total 500 1000 Balance -500 -500 Weight 74.843 kg Intake: Oral 500 Output: Urine 500 1000 Urine, Voided 500 1000 Other: # Voids Urine, Voided 2 # Bowel Movements 1 - Medications Active Medications: Active Medications Generic Name Dose Route Start Last Admin Trade Name Freq PRN Reason Stop Dose Admin Aspirin 81 mg 07/02/18 10:00 07/06/18 09:09 Aspirin Chewable PO 81 mg DAILY [facility] Administration Chlordiazepoxide 10 mg 07/06/18 14:00 07/06/18 17:13 Librium PO 10 mg Q8 [facility] Administration Folic Acid 1 mg 07/02/18 10:00 07/06/18 09:08 Folic Acid PO 1 mg DAILY [facility] Administration Lisinopril 10 mg 07/03/18 10:00 07/06/18 09:08 Zestril PO 10 mg DAILY [facility] Administration Lorazepam 1 mg 07/05/18 16:34 07/05/18 23:51 Ativan IVP 1 mg Q4H PRN Administration Symptoms of alcohol withdrawl Protocol Metoprolol Tartrate 75 mg 07/03/18 09:21 07/06/18 17:12 Lopressor PO 75 mg 0800,1800 [facility] Administration Multivitamins/Minerals 1 tab 07/02/18 08:00 07/06/18 08:53 Therapeutic-M Tab PO 1 tab 0800 [facility] Administration Pantoprazole Sodium 40 mg 07/03/18 06:00 07/06/18 06:49 Protonix Ec Tab PO 40 mg 0600 [facility] Administration Thiamine HCl 50 mg 07/02/18 10:00 07/06/18 09:09 Vitamin B1 Tab PO 50 mg DAILY [facility] Administration - Patient Studies Lab Studies: Lab Studies 07/06/18 07/06/18 Range/Units 05:25 05:25 WBC 5.8 (4.5-11.0) 10^3/uL RBC 3.99 (3.5-6.1) 10^6/uL Hgb 12.4 L (14.0-18.0) g/dL Hct 36.9 L (42.0-52.0) % MCV 92.5 (80.0-105.0) fl MCH 31.1 (25.0-35.0) pg MCHC 33.6 (31.0-37.0) g/dl RDW 12.9 (11.5-14.5) % Plt Count 161 (120.0-450.0) 10^3/uL MPV 10.6 (7.0-11.0) fl Gran % 53.3 (50.0-68.0) % Lymph % (Auto) 32.5 (22.0-35.0) % [place] % (Auto) 12.2 H (1.0-6.0) % Eos % (Auto) 1.7 (1.5-5.0) % Baso % (Auto) 0.3 (0.0-3.0) % Gran # 3.10 (1.4-6.5) Lymph # (Auto) 1.9 (1.2-3.4) [place] # (Auto) 0.7 H (0.1-0.6) Eos # (Auto) 0.1 (0.0-0.7) Baso # (Auto) 0.02 (0.0-2.0) K/mm3 Sodium 137 (132-148) mmol/L Potassium 3.3 L (3.6-5.0) mmol/L Chloride 106 (98-107) mmol/L Carbon Dioxide 24 (21-33) mmol/L Anion Gap 10 (10-20) BUN 22 H (7-21) mg/dL Creatinine 0.8 (0.8-1.5) mg/dl Est GFR ( Amer) > 60 Est GFR (Non-Af Amer) > 60 Random Glucose 116 H (70-110) mg/dL Calcium 8.9 (8.4-10.5) mg/dL Phosphorus 4.1 (2.5-4.5) mg/dL Magnesium 2.1 (1.7-2.2) mg/dL Total Bilirubin 0.9 (0.2-1.3) mg/dL AST 70 H D (17-59) U/L ALT 47 (7-56) U/L Alkaline Phosphatase 77 (38-126) U/L Total Protein 7.2 (5.8-8.3) g/dL Albumin 4.0 (3.0-4.8) g/dL Globulin 3.3 gm/dL Albumin/Globulin Ratio 1.2 (1.1-1.8) Laboratory Results - last 24 hr 07/06/18 07/06/18 05:25 05:25 WBC 5.8 RBC 3.99 Hgb 12.4 L Hct 36.9 L MCV 92.5 MCH 31.1 MCHC 33.6 RDW 12.9 Plt Count 161 MPV 10.6 Gran % 53.3 Lymph % (Auto) 32.5 [place] % (Auto) 12.2 H Eos % (Auto) 1.7 Baso % (Auto) 0.3 Gran # 3.10 Lymph # (Auto) 1.9 [place] # (Auto) 0.7 H Eos # (Auto) 0.1 Baso # (Auto) 0.02 Sodium 137 Potassium 3.3 L Chloride 106 Carbon Dioxide 24 Anion Gap 10 BUN 22 H Creatinine 0.8 Est GFR ( Amer) > 60 Est GFR (Non-Af Amer) > 60 Random Glucose 116 H Calcium 8.9 Phosphorus 4.1 Magnesium 2.1 Total Bilirubin 0.9 AST 70 H D ALT 47 Alkaline Phosphatase 77 Total Protein 7.2 Albumin 4.0 Globulin 3.3 Albumin/Globulin Ratio 1.2 Critical Care Progress Note - Nutrition Nutrition: Nutrition Category Date Time Status Heart Healthy Diet [DIET] Diets 07/04/18 Lunch Active Addendum Addendum: 07/06/18 17:55 ICU Attending Addendum Patient seen and examined. Case reviewed on round with housestaff. Agree with resident note above with the following additions/exceptions: 57M admitted to ICU for etoh withdrawl /DTs weaned off precedex controlled on po librium ok to transfer out of ICU Rest of care as above Derrick Yeung MD Pulmonary Critical Care and Sleep Medicine
--- NOTE | 2018-07-06 13:28 | CP.PCM.PN ---
<Louise Garcia - Last Filed: 07/06/18 13:24> Subjective - Date & Time of Evaluation Date of Evaluation: 07/06/18 Time of Evaluation: 09:23 - Subjective Subjective: Louise Garcia PGY1 Hospital Progress Note Patient seen and examined at bedside this morning. No acute events overnight. CIWA score of 3 today. States he couldn't sleep and was hallucinating with visions of birds overnight. Denies any new complaints at this time including CP, SOB, nausea and vomiting. Plan to transfer out of ICU today. Objective - Vital Signs/Intake and Output Vital Signs (last 24 hours): Temp Pulse Resp BP Pulse Ox 98.3 F 89 19 113/74 96 07/06/18 08:00 07/06/18 10:20 07/06/18 10:20 07/06/18 10:00 07/06/18 10:20 Intake and Output: 07/06/18 07/06/18 06:59 18:59 Output Total 500 Balance -500 - Medications Medications: Current Medications Aspirin (Aspirin Chewable) 81 mg PO DAILY [facility] Last Admin: 07/06/18 09:09 Dose: 81 mg Chlordiazepoxide (Librium) 10 mg PO Q8 [facility] Folic Acid (Folic Acid) 1 mg PO DAILY [facility] Last Admin: 07/06/18 09:08 Dose: 1 mg Lisinopril (Zestril) 10 mg PO DAILY [facility] Last Admin: 07/06/18 09:08 Dose: 10 mg Lorazepam (Ativan) 1 mg IVP Q4H PRN; Protocol PRN Reason: Symptoms of alcohol withdrawl Last Admin: 07/05/18 23:51 Dose: 1 mg Metoprolol Tartrate (Lopressor) 75 mg PO 0800,1800 [facility] Last Admin: 07/06/18 09:06 Dose: 75 mg Multivitamins/Minerals (Therapeutic-M Tab) 1 tab PO 0800 [facility] Last Admin: 07/06/18 08:53 Dose: 1 tab Pantoprazole Sodium (Protonix Ec Tab) 40 mg PO 0600 [facility] Last Admin: 07/06/18 06:49 Dose: 40 mg Thiamine HCl (Vitamin B1 Tab) 50 mg PO DAILY [facility] Last Admin: 07/06/18 09:09 Dose: 50 mg - Labs Labs: 07/06/18 05:25 07/06/18 05:25 - Additional Findings Additional findings: - Constitutional Appears: Non-toxic, No Acute Distress - Head Exam Head Exam: ATRAUMATIC, NORMOCEPHALIC - Eye Exam Eye Exam: EOMI, Normal appearance, PERRL. absent: Scleral icterus - ENT Exam ENT Exam: Mucous Membranes Moist - Respiratory Exam Respiratory Exam: NORMAL BREATHING PATTERN. absent: Accessory Muscle Use, Respiratory Distress - Cardiovascular Exam Cardiovascular Exam: regular rhythm, +S1, +S2 - GI/Abdominal Exam GI & Abdominal Exam: Soft. absent: Distended, Firm, Guarding, Rebound, Rigid, Tenderness - Neurological Exam Neurological exam: Alert and Oriented x3. Resting tremor present when hands are raised. Not agitated or combative. - Skin Skin Exam: Dry, Intact, Normal Color Assessment and Plan - Assessment and Plan (Free Text) Assessment: Patient is a 57 year old female with past medical history of HTN, CAD, alcohol abuse presenting with chief complaint of generalized body aches and alcohol withdrawal, now admitted to ICU. Plan: Alcohol withdrawal - serum alcohol 257 on admission - off precedex drip for 24 hours, resting comfortably, not agitated or combative - CIWA score of 3 today - 1:1 sitter - Ativan 1 mg Q4H PRN for symptoms of alcohol withdrawal, last given at midnight - Librium 25 mg PO Q8 changed to 10mg daily - thiamine 100 mg PO QD, multivitamin, folic acid 1 mg PO QD - seizure precautions, fall precautions, aspiration precautions Hypokalemia - 3.3, repleted, will monitor Hx of Hypertension - Lopressor 75 mg PO BID - Lisinopril 10 mg PO daily Hx of CAD - s/p cardiac stent - Aspirin 81mg PO QD - lipid panel in 12/2017 was unremarkable - Lipitor on hold due to mildly elevated CPK PPX/Diet - Protonix 40 mg PO daily - SCDs - Heart healthy diet Patient seen and case discussed with attending, Dr. Shine <Swathi Shine - Last Filed: 07/08/18 15:54> Objective - Vital Signs/Intake and Output Vital Signs (last 24 hours): Temp Pulse Resp BP Pulse Ox 97.6 F 78 20 140/91 H 97 07/08/18 06:00 07/08/18 06:00 07/08/18 06:00 07/08/18 06:00 07/08/18 06:00 - Labs Labs: 07/08/18 06:30 07/08/18 06:30 Attending/Attestation - Attestation I have personally seen and examined this patient.: Yes I have fully participated in the care of the patient.: Yes I have reviewed all pertinent clinical information, including history, physical exam and plan: Yes Notes (Text): 07/08/18 15:53 Medical record note made by the resident after discussion with my direction and input after the patient was personally seen and examined by me. I have reviewed the chart and agree that the record accurately reflects by personal performance of the history, physical exam, data review, and medical decision-making, in the course for the patient. I have also personally directed the plan of care.
[2018-07-07] MEDS: Pantoprazole 40 mg EC Tab PO SCH (06:17)
--- NOTE | 2018-07-07 07:19 | CP.PCM.PN ---
<Cielo Guadarrama - Last Filed: 07/07/18 16:48> Subjective - Date & Time of Evaluation Date of Evaluation: 07/07/18 Time of Evaluation: 07:18 - Subjective Subjective: Resident Progress Note for Hospitalist Service Patient examined at bedside. Patient received ativan x1 overnight. Patient states he does have an urge to drink alcohol and admits to a mild tremor. Denies fevers, chills, headache, nausea, vomiting, hallucinations. Objective - Vital Signs/Intake and Output Vital Signs (last 24 hours): Temp Pulse Resp BP Pulse Ox 98.2 F 84 18 151/100 H 97 07/06/18 23:00 07/06/18 23:00 07/06/18 23:00 07/06/18 23:00 07/06/18 23:00 - Medications Medications: Current Medications Aspirin (Aspirin Chewable) 81 mg PO DAILY [facility] Last Admin: 07/06/18 09:09 Dose: 81 mg Chlordiazepoxide (Librium) 10 mg PO Q8 [facility] Last Admin: 07/07/18 06:17 Dose: 10 mg Folic Acid (Folic Acid) 1 mg PO DAILY [facility] Last Admin: 07/06/18 09:08 Dose: 1 mg Lisinopril (Zestril) 10 mg PO DAILY [facility] Last Admin: 07/06/18 09:08 Dose: 10 mg Lorazepam (Ativan) 1 mg IVP Q4H PRN; Protocol PRN Reason: Symptoms of alcohol withdrawl Last Admin: 07/07/18 04:11 Dose: 1 mg Metoprolol Tartrate (Lopressor) 75 mg PO 0800,1800 [facility] Last Admin: 07/06/18 17:12 Dose: 75 mg Multivitamins/Minerals (Therapeutic-M Tab) 1 tab PO 0800 [facility] Last Admin: 07/06/18 08:53 Dose: 1 tab Pantoprazole Sodium (Protonix Ec Tab) 40 mg PO 0600 [facility] Last Admin: 07/07/18 06:17 Dose: 40 mg Thiamine HCl (Vitamin B1 Tab) 50 mg PO DAILY [facility] Last Admin: 07/06/18 09:09 Dose: 50 mg - Labs Labs: 07/06/18 05:25 07/06/18 05:25 - Additional Findings Additional findings: - Constitutional Appears: Non-toxic, No Acute Distress - Head Exam Head Exam: ATRAUMATIC, NORMOCEPHALIC - Eye Exam Eye Exam: EOMI, Normal appearance, PERRL. absent: Scleral icterus - ENT Exam ENT Exam: Mucous Membranes Moist - Respiratory Exam Respiratory Exam: NORMAL BREATHING PATTERN, Clear to Auscultation Bilaterally. absent: Accessory Muscle Use, Respiratory Distress - Cardiovascular Exam Cardiovascular Exam: Tachycardia, RRR, +S1, +S2 - GI/Abdominal Exam GI & Abdominal Exam: Soft. absent: Distended, Firm, Guarding, Rebound, Rigid, Tenderness - Neurological Exam Neurological exam: Alert, Oriented x3 - Skin Skin Exam: Dry, Intact, Normal Color Assessment and Plan - Assessment and Plan (Free Text) Assessment: Patient is a 57 year old female with past medical history of HTN, CAD, alcohol abuse presenting with chief complaint of generalized body aches and alcohol withdrawal, transferred from ICU. Plan: Alcohol withdrawal - serum alcohol 257 on admission - off precedex resting comfortably, not agitated or combative - CIWA score of 3 today - 1:1 sitter - Ativan 1 mg Q4H PRN for symptoms of alcohol withdrawal - Librium discontinued - thiamine 100 mg PO QD, multivitamin, folic acid 1 mg PO QD - seizure precautions, fall precautions, aspiration precautions - PT eval Hypokalemia - monitor and replete Hx of Hypertension - Lopressor 75 mg PO BID - Lisinopril 10 mg PO daily Hx of CAD - s/p cardiac stent - Aspirin 81mg PO QD - lipid panel in 12/2017 was unremarkable - Lipitor on hold due to mildly elevated CPK PPX/Diet - Protonix 40 mg PO daily - SCDs - Heart healthy diet Case discussed with Dr. Fátima Guadarrama PGY-1 <Swathi Shine - Last Filed: 07/08/18 15:53> Objective - Vital Signs/Intake and Output Vital Signs (last 24 hours): Temp Pulse Resp BP Pulse Ox 97.6 F 78 20 140/91 H 97 07/08/18 06:00 07/08/18 06:00 07/08/18 06:00 07/08/18 06:00 07/08/18 06:00 - Labs Labs: 07/08/18 06:30 07/08/18 06:30 Attending/Attestation - Attestation I have personally seen and examined this patient.: Yes I have fully participated in the care of the patient.: Yes I have reviewed all pertinent clinical information, including history, physical exam and plan: Yes Notes (Text): 07/08/18 15:53 Medical record note made by the resident after discussion with my direction and input after the patient was personally seen and examined by me. I have reviewed the chart and agree that the record accurately reflects by personal performance of the history, physical exam, data review, and medical decision-making, in the course for the patient. I have also personally directed the plan of care.
[2018-07-07 07:25] LABS: BASO # 0.03 K/mm3 (0.0-2.0); BASO % 0.6 % (0.0-3.0); EOS # 0.1 (0.0-0.7); EOS % 1.4 % (1.5-5.0); GRAN # 2.42 (1.4-6.5); GRAN % 47.2 % (50.0-68.0); HEMOGLOBIN 11.9 g/dL (14.0-18.0); LYMPH # 1.7 (1.2-3.4); LYMPH % 32.7 % (22.0-35.0); MEAN CELL VOLUME 93.2 fl (80.0-105.0); MEAN CORPUSCULAR HEMOGLOBIN 31.2 pg (25.0-35.0); MEAN CORPUSCULAR HGB CONC 33.4 g/dl (31.0-37.0); MEAN PLATELET VOLUME 10.2 fl (7.0-11.0); MONO # 0.9 (0.1-0.6); MONO % 18.1 % (1.0-6.0); RBC 3.82 10^6/uL (3.5-6.1); RED CELL DISTRIBUTION WIDTH 13.3 % (11.5-14.5); WHITE BLOOD COUNT 5.1 10^3/uL (4.5-11.0)
[2018-07-07 07:44] LABS: ALB/GLOB RATIO 1.2 (1.1-1.8); ALT/SGPT 45 U/L (7-56); AST/SGOT 60 U/L (17-59); BLOOD UREA NITROGEN 9 mg/dL (7-21); CALCIUM 9.1 mg/dL (8.4-10.5); GFR NON-AFRICAN AMERICAN > 60
[2018-07-07 08:00] LABS: CK-MB 0.9 ng/mL (0.0-3.6)
[2018-07-07 08:40] VITALS: RESP 20
[2018-07-07] MEDS: Multivitamin With Minerals Tab PO SCH (09:54)
[2018-07-08] MEDS: Pantoprazole 40 mg EC Tab PO SCH (05:39)
[2018-07-08 07:07] LABS: BASO # 0.03 K/mm3 (0.0-2.0); BASO % 0.5 % (0.0-3.0); EOS # 0.1 (0.0-0.7); EOS % 1.9 % (1.5-5.0); GRAN # 2.51 (1.4-6.5); GRAN % 44.5 % (50.0-68.0); HEMOGLOBIN 12.2 g/dL (14.0-18.0); LYMPH # 2.1 (1.2-3.4); MEAN CELL VOLUME 93.6 fl (80.0-105.0); MEAN CORPUSCULAR HEMOGLOBIN 32.4 pg (25.0-35.0); MEAN CORPUSCULAR HGB CONC 34.6 g/dl (31.0-37.0); MEAN PLATELET VOLUME 10.2 fl (7.0-11.0); MONO # 0.9 (0.1-0.6); MONO % 16.1 % (1.0-6.0); RBC 3.77 10^6/uL (3.5-6.1); RED CELL DISTRIBUTION WIDTH 13.3 % (11.5-14.5); WHITE BLOOD COUNT 5.7 10^3/uL (4.5-11.0)
--- NOTE | 2018-07-08 07:29 | CP.PCM.PN ---
Subjective - Date & Time of Evaluation Date of Evaluation: 07/08/18 Time of Evaluation: 07:29 Objective - Vital Signs/Intake and Output Vital Signs (last 24 hours): Temp Pulse Resp BP Pulse Ox 98 F 69 20 137/85 96 07/07/18 22:39 07/07/18 22:39 07/07/18 22:39 07/07/18 22:39 07/07/18 22:39 - Medications Medications: Current Medications Aspirin (Aspirin Chewable) 81 mg PO DAILY [facility] Last Admin: 07/07/18 09:54 Dose: 81 mg Folic Acid (Folic Acid) 1 mg PO DAILY [facility] Last Admin: 07/07/18 09:54 Dose: 1 mg Lisinopril (Zestril) 10 mg PO DAILY [facility] Last Admin: 07/07/18 09:54 Dose: 10 mg Lorazepam (Ativan) 1 mg IVP Q4H PRN; Protocol PRN Reason: Symptoms of alcohol withdrawl Last Admin: 07/08/18 02:46 Dose: 1 mg Metoprolol Tartrate (Lopressor) 75 mg PO 0800,1800 [facility] Last Admin: 07/07/18 18:02 Dose: 75 mg Multivitamins/Minerals (Therapeutic-M Tab) 1 tab PO 0800 [facility] Last Admin: 07/07/18 09:54 Dose: 1 tab Pantoprazole Sodium (Protonix Ec Tab) 40 mg PO 0600 [facility] Last Admin: 07/08/18 05:39 Dose: 40 mg Thiamine HCl (Vitamin B1 Tab) 50 mg PO DAILY [facility] Last Admin: 07/07/18 09:54 Dose: 50 mg - Labs Labs: 07/08/18 06:30 07/07/18 06:45
[2018-07-08 07:42] LABS: ALB/GLOB RATIO 1.2 (1.1-1.8); ALBUMIN 4.2 g/dL (3.0-4.8); ALT/SGPT 41 U/L (7-56); AST/SGOT 53 U/L (17-59); BLOOD UREA NITROGEN 8 mg/dL (7-21); CALCIUM 9.3 mg/dL (8.4-10.5); GFR NON-AFRICAN AMERICAN > 60
[2018-07-08 09:01] VITALS: TEMP 97.6
[2018-07-08 09:14] VITALS: BP 140/91; PULSE 78; O2SAT 97
[2018-07-08] MEDS: Multivitamin With Minerals Tab PO SCH (10:48)
--- NOTE | 2018-07-08 11:34 | CP.PCM.DIS ---
<Cielo Guadarrama L - Last Filed: 07/08/18 15:43> Provider - Provider Date of Admission: 07/01/18 21:01 Attending physician: Swathi Shine MD Primary care physician: Leigh Victor MD Consults: none Time Spent in preparation of Discharge (in minutes): 35 Diagnosis - Discharge Diagnosis (1) Alcohol withdrawal Status: Resolved Priority: High (2) Transaminitis Status: Resolved Priority: Medium Hospital Course - Lab Results Lab Results: Micro Results 07/03/18 22:46 Nose MRSA Culture (Admit) - Final MRSA NOT DETECTED Most Recent Lab Values WBC 5.7 10^3/uL (4.5-11.0) 07/08/18 06:30 RBC 3.77 10^6/uL (3.5-6.1) 07/08/18 06:30 Hgb 12.2 g/dL (14.0-18.0) L 07/08/18 06:30 Hct 35.3 % (42.0-52.0) L 07/08/18 06:30 MCV 93.6 fl (80.0-105.0) 07/08/18 06:30 MCH 32.4 pg (25.0-35.0) 07/08/18 06:30 MCHC 34.6 g/dl (31.0-37.0) 07/08/18 06:30 RDW 13.3 % (11.5-14.5) 07/08/18 06:30 Plt Count 219 10^3/uL (120.0-450.0) 07/08/18 06:30 MPV 10.2 fl (7.0-11.0) 07/08/18 06:30 Gran % 44.5 % (50.0-68.0) L 07/08/18 06:30 Lymph % (Auto) 37.0 % (22.0-35.0) H 07/08/18 06:30 Imperial % (Auto) 16.1 % (1.0-6.0) H 07/08/18 06:30 Eos % (Auto) 1.9 % (1.5-5.0) 07/08/18 06:30 Baso % (Auto) 0.5 % (0.0-3.0) 07/08/18 06:30 Gran # 2.51 (1.4-6.5) 07/08/18 06:30 Lymph # (Auto) 2.1 (1.2-3.4) 07/08/18 06:30 Imperial # (Auto) 0.9 (0.1-0.6) H 07/08/18 06:30 Eos # (Auto) 0.1 (0.0-0.7) 07/08/18 06:30 Baso # (Auto) 0.03 K/mm3 (0.0-2.0) 07/08/18 06:30 Sodium 138 mmol/L (132-148) 07/08/18 06:30 Potassium 4.0 mmol/L (3.6-5.0) 07/08/18 06:30 Chloride 107 mmol/L (98-107) 07/08/18 06:30 Carbon Dioxide 25 mmol/L (21-33) 07/08/18 06:30 Anion Gap 10 (10-20) 07/08/18 06:30 BUN 8 mg/dL (7-21) 07/08/18 06:30 Creatinine 0.7 mg/dl (0.8-1.5) L 07/08/18 06:30 Est GFR ( Amer) > 60 07/08/18 06:30 Est GFR (Non-Af Amer) > 60 07/08/18 06:30 POC Glucose (mg/dL) 100 mg/dL (65-110) 07/01/18 12:04 Random Glucose 90 mg/dL (70-110) 07/08/18 06:30 Calcium 9.3 mg/dL (8.4-10.5) 07/08/18 06:30 Phosphorus 4.1 mg/dL (2.5-4.5) 07/06/18 05:25 Magnesium 2.1 mg/dL (1.7-2.2) 07/06/18 05:25 Total Bilirubin 0.5 mg/dL (0.2-1.3) 07/08/18 06:30 AST 53 U/L (17-59) 07/08/18 06:30 ALT 41 U/L (7-56) 07/08/18 06:30 Alkaline Phosphatase 75 U/L (38-126) 07/08/18 06:30 Total Creatine Kinase 793 U/L (35-230) H 07/07/18 06:45 CK-MB (CK-2) 0.9 ng/mL (0.0-3.6) 07/07/18 06:45 CK-MB (CK-2) % Cancelled 07/01/18 12:15 Troponin I 0.01 ng/mL 07/02/18 07:00 Total Protein 7.5 g/dL (5.8-8.3) 07/08/18 06:30 Albumin 4.2 g/dL (3.0-4.8) 07/08/18 06:30 Globulin 3.4 gm/dL 07/08/18 06:30 Albumin/Globulin Ratio 1.2 (1.1-1.8) 07/08/18 06:30 Lipase 376 U/L (23-300) H 07/01/18 12:30 Urine Opiates Screen Negative (NEGATIVE) 07/01/18 19:05 Urine Methadone Screen Negative (NEGATIVE) 07/01/18 19:05 Ur Barbiturates Screen Negative (NEGATIVE) 07/01/18 19:05 Ur Phencyclidine Scrn Negative (NEGATIVE) 07/01/18 19:05 Ur Amphetamines Screen Negative (NEGATIVE) 07/01/18 19:05 U Benzodiazepines Scrn Negative (NEGATIVE) 07/01/18 19:05 U Oth Cocaine Metabols Negative (NEGATIVE) 07/01/18 19:05 U Cannabinoids Screen Negative (NEGATIVE) 07/01/18 19:05 Alcohol, Quantitative 257 mg/dL (0-10) H 07/01/18 12:15 - Hospital Course Hospital Course: On admission: Patient is a 57 year old female with past medical history of HTN, CAD, alcohol abuse presenting with chief complaint of generalized body aches and alcohol withdrawal. Patient states that this morning he drank four 12 oz. beers and his last alcohol intake was approximately 11 AM. Patient also states that for the past two weeks he has been drinking around 15 beers a day. Patient has history of recurrent hospitalizations due to alcohol withdrawal. He denies headache, dizziness, tremors, fevers, chills, chest pain, palpitations, shortness of breath, abdominal pain, diarrhea, dysuria. During hospital stay: Patient's serum alcohol was 257 on admission. Patient was put on ativan PRN, thiamine, multivitamin, folic acid. Patient also placed on seizure, fall, aspiration precautions. Patient's home lipitor was held due to mildly elevated CPK. Patient became agitated, was given ativan and geodon with no remission. Patient was admitted to ICU on precedex drip. Patient's CIWA score improved, was transferred out of ICU off precedex drip and started on Librium. Patient was evaluated by PT. Patient was optimized for discharge. Please see EMR for full summary. - Date & Time of H&P Date of H&P: 07/01/18 Time of H&P: 14:55 Discharge Exam - Additional Findings Additional findings: - Constitutional Appears: Non-toxic, No Acute Distress - Head Exam Head Exam: ATRAUMATIC, NORMOCEPHALIC - Eye Exam Eye Exam: EOMI, Normal appearance, PERRL. absent: Scleral icterus - ENT Exam ENT Exam: Mucous Membranes Moist - Respiratory Exam Respiratory Exam: NORMAL BREATHING PATTERN, Clear to Auscultation Bilaterally. absent: Accessory Muscle Use, Respiratory Distress - Cardiovascular Exam Cardiovascular Exam: RRR, +S1, +S2. absent: Systolic Murmurs - GI/Abdominal Exam GI & Abdominal Exam: Soft. absent: Distended, Firm, Guarding, Rebound, Rigid, Tenderness - Neurological Exam Neurological exam: Alert, Oriented x3 - Skin Skin Exam: Dry, Intact, Normal Color Discharge Plan - Discharge Medications Prescriptions: RX: Aspirin [Aspirin Chewable] 81 mg PO DAILY 14 Days #30 chew RX: Atorvastatin [Lipitor] 20 mg PO DIN 14 Days #30 tab RX: Folic Acid 1 mg PO DAILY 14 Days #30 tab RX: Metoprolol Tartrate [Lopressor] 50 mg PO 0800,1800 14 Days #30 tab RX: Multimineral/Multivitamin [Therapeutic-M Tab] 1 tab PO 0800 14 Days tab RX: Thiamine [Vitamin B1 Tab] 100 mg PO DAILY 14 Days #30 tab - Follow Up Plan Condition: FAIR Disposition: HOME/ ROUTINE Patient education suggested?: Yes Instructions: Preventing Falls in the Older Adult, Alcohol Withdrawal, Alcohol Abuse and Alcoholism (DC), Effects of Alcohol on Your Health Additional Instructions: Please follow up with your primary medical doctor Dr. Victor within one week. You have been provided medications to go home with. Please take these as prescribed. Please refrain from drinking alcohol and follow up with AA meetings. Return to ED if symptoms return or worsen. Referrals: Leigh Hester MD [Primary Care Provider] - <Swathi Shine - Last Filed: 07/08/18 15:53> Provider - Provider Date of Admission: 07/01/18 21:01 Attending physician: Swathi Shine MD Primary care physician: Leigh Victor MD Hospital Course - Lab Results Lab Results: Micro Results 07/03/18 22:46 Nose MRSA Culture (Admit) - Final MRSA NOT DETECTED Most Recent Lab Values WBC 5.7 10^3/uL (4.5-11.0) 07/08/18 06:30 RBC 3.77 10^6/uL (3.5-6.1) 07/08/18 06:30 Hgb 12.2 g/dL (14.0-18.0) L 07/08/18 06:30 Hct 35.3 % (42.0-52.0) L 07/08/18 06:30 MCV 93.6 fl (80.0-105.0) 07/08/18 06:30 MCH 32.4 pg (25.0-35.0) 07/08/18 06:30 MCHC 34.6 g/dl (31.0-37.0) 07/08/18 06:30 RDW 13.3 % (11.5-14.5) 07/08/18 06:30 Plt Count 219 10^3/uL (120.0-450.0) 07/08/18 06:30 MPV 10.2 fl (7.0-11.0) 07/08/18 06:30 Gran % 44.5 % (50.0-68.0) L 07/08/18 06:30 Lymph % (Auto) 37.0 % (22.0-35.0) H 07/08/18 06:30 Imperial % (Auto) 16.1 % (1.0-6.0) H 07/08/18 06:30 Eos % (Auto) 1.9 % (1.5-5.0) 07/08/18 06:30 Baso % (Auto) 0.5 % (0.0-3.0) 07/08/18 06:30 Gran # 2.51 (1.4-6.5) 07/08/18 06:30 Lymph # (Auto) 2.1 (1.2-3.4) 07/08/18 06:30 Imperial # (Auto) 0.9 (0.1-0.6) H 07/08/18 06:30 Eos # (Auto) 0.1 (0.0-0.7) 07/08/18 06:30 Baso # (Auto) 0.03 K/mm3 (0.0-2.0) 07/08/18 06:30 Sodium 138 mmol/L (132-148) 07/08/18 06:30 Potassium 4.0 mmol/L (3.6-5.0) 07/08/18 06:30 Chloride 107 mmol/L (98-107) 07/08/18 06:30 Carbon Dioxide 25 mmol/L (21-33) 07/08/18 06:30 Anion Gap 10 (10-20) 07/08/18 06:30 BUN 8 mg/dL (7-21) 07/08/18 06:30 Creatinine 0.7 mg/dl (0.8-1.5) L 07/08/18 06:30 Est GFR ( Amer) > 60 07/08/18 06:30 Est GFR (Non-Af Amer) > 60 07/08/18 06:30 POC Glucose (mg/dL) 100 mg/dL (65-110) 07/01/18 12:04 Random Glucose 90 mg/dL (70-110) 07/08/18 06:30 Calcium 9.3 mg/dL (8.4-10.5) 07/08/18 06:30 Phosphorus 4.1 mg/dL (2.5-4.5) 07/06/18 05:25 Magnesium 2.1 mg/dL (1.7-2.2) 07/06/18 05:25 Total Bilirubin 0.5 mg/dL (0.2-1.3) 07/08/18 06:30 AST 53 U/L (17-59) 07/08/18 06:30 ALT 41 U/L (7-56) 07/08/18 06:30 Alkaline Phosphatase 75 U/L (38-126) 07/08/18 06:30 Total Creatine Kinase 793 U/L (35-230) H 07/07/18 06:45 CK-MB (CK-2) 0.9 ng/mL (0.0-3.6) 07/07/18 06:45 CK-MB (CK-2) % Cancelled 07/01/18 12:15 Troponin I 0.01 ng/mL 07/02/18 07:00 Total Protein 7.5 g/dL (5.8-8.3) 07/08/18 06:30 Albumin 4.2 g/dL (3.0-4.8) 07/08/18 06:30 Globulin 3.4 gm/dL 07/08/18 06:30 Albumin/Globulin Ratio 1.2 (1.1-1.8) 07/08/18 06:30 Lipase 376 U/L (23-300) H 07/01/18 12:30 Urine Opiates Screen Negative (NEGATIVE) 07/01/18 19:05 Urine Methadone Screen Negative (NEGATIVE) 07/01/18 19:05 Ur Barbiturates Screen Negative (NEGATIVE) 07/01/18 19:05 Ur Phencyclidine Scrn Negative (NEGATIVE) 07/01/18 19:05 Ur Amphetamines Screen Negative (NEGATIVE) 07/01/18 19:05 U Benzodiazepines Scrn Negative (NEGATIVE) 07/01/18 19:05 U Oth Cocaine Metabols Negative (NEGATIVE) 07/01/18 19:05 U Cannabinoids Screen Negative (NEGATIVE) 07/01/18 19:05 Alcohol, Quantitative 257 mg/dL (0-10) H 07/01/18 12:15 Attending/Attestation - Attestation I have personally seen and examined this patient.: Yes I have fully participated in the care of the patient.: Yes I have reviewed all pertinent clinical information, including history, physical exam and plan: Yes Notes (Text): 07/08/18 15:48 Medical record note made by the resident after discussion with my direction and input after the patient was personally seen and examined by me. I have reviewed the chart and agree that the record accurately reflects by personal performance of the history, physical exam, data review, and medical decision-making, in the course for the patient. I have also personally directed the plan of care. 57 year old male with past medical history of HTN, CAD, alcohol abuse presenting with chief complaint of generalized body aches and alcohol withdrawal. Patient's serum alcohol was 257 on admission. Patient was initially on telemetry floor, later on he was transfered to [facility] for Delirium tremens and was treated with precedex drip. Patient's CIWA score improved, was transferred out of ICU off precedex drip and started on Librium. Patient alcohol withdrawals are improved. He is ambulatory.Patient was evaluated by PT. Patient was optimized for discharge. Issue of ongoing alcohol abuse was discussed in detail with him. Prognosis is guarded due to non compliance and ongoing alcohol abuse.
== END 2018-07-08 14:31 | disposition home or self-care (01) | DRG 775 ==
LOC: ED 11:57 → ERH 21:01 → 2RNO 07-02 03:07 → ICU 07-03 21:20 → 5RNO 07-06 17:53
PROVIDERS: ADMIT Hospitalist; ATTEND Internal Medicine
DX: F10.231 Alcohol dependence with withdrawal delirium (principal); I10 Essential (primary) hypertension; I25.10 Atherosclerotic heart disease of native coronary artery without angina pectoris; Y90.8 Blood alcohol level of 240 mg/100 ml or more; E87.6 Hypokalemia; F32.9 Major depressive disorder, single episode, unspecified; Z78.1 Physical restraint status; Z91.19 Patient's noncompliance with other medical treatment and regimen; Z95.5 Presence of coronary angioplasty implant and graft

== ENCOUNTER 2018-07-12 18:53 | Inpatient (IN) | payer MEDICAID, OTHER ==
[2018-07-12 18:53] VITALS: BMI 26.6
--- NOTE | 2018-07-12 19:26 | ED PDOC ---
Arrival/HPI - General Chief Complaint: Alcohol Ingestion Time Seen by Provider: 07/12/18 19:00 Historian: Patient - History of Present Illness Narrative History of Present Illness (Text): 07/12/18 20:42 A 57 year old male, whose past medical history includes hypertension, CAD s/p stents (2012), palpitations, alcohol abuse, and depression, presents to the emergency department complaining of shortness of breath, left sided chest pain, and palpitations since earlier this morning. Pain is described as left sided pressure. Patient reports ingesting 1/2 bottle of whiskey this afternoon but states his symptoms "are not because he is drunk". Of note, discharged 07/08 after extended stay for alcohol withdrawal. Pt has been seen in ED and admitted multiple times for similar complaints. Patient denies any seizure activity, tremors, cough, fever, chills, abdominal pain, diarrhea, nausea, vomiting, back pain, neck pain, leg swelling, calf pain, headache, dizziness, or any other complaints. Past Medical History - Provider Review Nursing Documentation Reviewed: Yes - Infectious Disease Hx of Infectious Diseases: None - Tetanus Immunization Tetanus Immunization: Unknown - Cardiac Hx Cardiac Disorders: Yes Hx Congestive Heart Failure: Yes (Paroxymal Afib) Hx Hypertension: Yes - Pulmonary Hx Respiratory Disorders: No - Neurological Hx Neurological Disorder: No - HEENT Hx HEENT Disorder: No - Renal Hx Renal Disorder: No - Endocrine/Metabolic Hx Endocrine Disorders: No - Hematological/Oncological Hx Blood Disorders: No - Integumentary Hx Dermatological Disorder: No - Musculoskeletal/Rheumatological Hx Falls: Yes - Gastrointestinal Hx Gastrointestinal Disorders: No - Genitourinary/Gynecological Hx Genitourinary Disorders: No - Psychiatric Hx Psychophysiologic Disorder: Yes Hx Depression: Yes Hx Substance Use: No Other/Comment: ETOH ABUSE - Past Surgical History Past Surgical History: No Previous - Surgical History Hx Cardiac Catheterization: Yes (x1) Hx Coronary Stent: Yes - Anesthesia Hx Anesthesia: Yes Hx Anesthesia Reactions: No Hx Malignant Hyperthermia: No - Suicidal Assessment Feels Threatened In Home Enviroment: No Family/Social History - Physician Review Nursing Documentation Reviewed: Yes Family/Social History: No Known Family HX Smoking Status: Current Some Days Smoker Hx Alcohol Use: Yes (12-14 cans of beer per day) Amount per day: 5 Hx Substance Use: No Hx Substance Use Treatment: No Allergies/Home Meds Allergies/Adverse Reactions: Allergies No Known Allergies Allergy (Verified 04/06/18 19:54) Review of Systems - Physician Review All systems were reviewed & negative as marked: Yes - Review of Systems Constitutional: Normal. absent: Fevers Eyes: Normal. absent: Vision Changes, Photophobia ENT: Normal. absent: Sore Throat, Sinus Congestion Respiratory: SOB. absent: Cough Cardiovascular: Chest Pain, Palpitations. absent: Edema, Calf Pain, Syncope Gastrointestinal: Normal. absent: Abdominal Pain, Nausea, Vomiting Genitourinary Male: Normal Musculoskeletal: Normal. absent: Arthralgias, Back Pain Skin: Normal. absent: Rash, Skin Lesions Neurological: Normal. absent: Headache, Dizziness, Focal Weakness, Gait Changes, Disequilibrium Endocrine: Normal Hemo/Lymphatic: Normal Psychiatric: Normal Physical Exam Vital Signs Reviewed: Yes Vital Signs Temp Pulse Resp BP Pulse Ox 07/12/18 19:10 98.2 F 95 H 20 120/70 95 Temperature: Afebrile Blood Pressure: Normal Pulse: Regular Respiratory Rate: Normal Appearance: Positive for: Well-Appearing, Non-Toxic, Comfortable Pain Distress: None Mental Status: Positive for: Alert and Oriented X 3 - Systems Exam Head: Present: Atraumatic, Normocephalic Pupils: Present: PERRL Extroacular Muscles: Present: EOMI Conjunctiva: Present: Normal Mouth: Present: Moist Mucous Membranes Neck: Present: Normal Range of Motion. No: Meningeal Signs, MIDLINE TENDERNESS, Paraspinal Tenderness Respiratory/Chest: Present: Clear to Auscultation, Good Air Exchange. No: R espiratory Distress, Accessory Muscle Use, Tender to Palpation Cardiovascular: Present: Regular Rate and Rhythm, Normal S1, S2 Abdomen: Present: Normal Bowel Sounds. No: Tenderness, Distention, Peritoneal Signs, Guarding Back: Present: Normal Inspection. No: CVA Tenderness, Midline Tenderness Upper Extremity: Present: Normal Inspection, Normal ROM, NORMAL PULSES, Neurovascularly Intact, Capillary Refill < 2s. No: Cyanosis, Edema Lower Extremity: Present: Normal Inspection, NORMAL PULSES, Normal ROM, Neurovascularly Intact, Capillary Refill < 2 s. No: Edema Neurological: Present: GCS=15, CN II-XII Intact, Speech Normal, Motor Func Grossly Intact, Normal Sensory Function, Gait Normal Skin: Present: Warm, Dry, Normal Color. No: Rashes Lymphatic: No: Cervical Adenopathy Psychiatric: Present: Alert, Oriented x 3, Normal Insight, Normal Concentration, Normal Affect, Normal Mood Medical Decision Making ED Course and Treatment: 07/12/18 20:46 Initial Plan: * CBC, CMP * Coags * Troponin * Alcohol level * UDS * UA * EKG * CXR * ASA On initial exam, patient is resting comfortably in stretcher in no acute distress. No tremors or seizure activity noted at this time. CBC: hgb 12.0, otherwise unremarkable CMP: unremarkable Coags: unremarkable UA: unremarkable UDS: negative Alcohol level 270 Acetaminophen, Salicylate: negative Flu: negative Troponin negative EKst degree AV block, no ischemic changes; compared with EKG from 04/06/18 CXR: no active disease, unchanged from prior as read by me Secondary to cardiac history and complaints of chest pain, SOB, and palpitations, will admit for observation. 21:00 Patient now c/o left lateral foot discomfort secondary to "stepping on glass a few days ago". Small open wound noted to left lateral foot, no FB visualized. Will give Tdap and XR left foot. Admitting team states they will follow official read of left foot XR and consult surgery/podiatry as necessary. 21:[address] Pedroza, who accepted patient for inpatient telemetry observation with diagnosis of chest pain and alcohol intoxication. Patient with stable vital signs at this time. Patient made aware of disposition and agrees with plan of care. - Lab Interpretations Lab Results: 07/12/18 20:10 07/12/18 20:10 Lab Results 07/12/18 20:10: Alcohol, Quantitative 270 H 07/12/18 20:10: Salicylates < 1 L, Acetaminophen < 10.0 L 07/12/18 20:10: Sodium 141, Potassium 3.8, Chloride 109 H, Carbon Dioxide 23, Anion Gap 13, BUN 23 H, Creatinine 1.1, Est GFR ( Amer) > 60, Est GFR (Non-Af Amer) > 60, Random Glucose 93, Calcium 9.1, Phosphorus 3.1, Magnesium 2.3 H, Total Bilirubin 0.3, AST 51, ALT 44, Alkaline Phosphatase 79, Troponin I < 0.01, Total Protein 7.4, Albumin 4.2, Globulin 3.2, Albumin/Globulin Ratio 1.3 07/12/18 20:10: WBC 7.0 D, RBC 3.86, Hgb 12.0 L, Hct 36.6 L, MCV 94.8, MCH 31.1, MCHC 32.8, RDW 13.5, Plt Count 440, MPV 9.5, Gran % 48.8 L, Lymph % (Auto) 36.2 H, [place] % (Auto) 12.6 H, Eos % (Auto) 0.7 L, Baso % (Auto) 1.7, Gran # 3.42 , Lymph # (Auto) 2.5, [place] # (Auto) 0.9 H, Eos # (Auto) 0.1, Baso # (Auto) 0.12 07/12/18 20:02: POC Glucose (mg/dL) 107 I have reviewed the lab results: Yes - RAD Interpretation Narrative RAD Interpretations (Text): 07/13/18 03:19 CXR: No active disease Electrical Helper: ED Physician - EKG Interpretation EKG Interpretation (Text): 07/13/18 03:20 Rate 87; 1st degree AV block in NSR; no STEMI or other signs of acute ischemia Interpreted by ED Physician: Yes Type: 12 lead EKG Comparison: Com.w/previous EKG (04/06/18; 07/01/18) Disposition/Present on Arrival - Present on Arrival Any Indicators Present on Arrival: No History of DVT/PE: No History of Uncontrolled Diabetes: No Urinary Catheter: No History of Decub. Ulcer: No History Surgical Site Infection Following: Bariatric Surgery - Disposition Have Diagnosis and Disposition been Completed?: Yes Diagnosis: Alcohol intoxication, Chest pain Disposition: HOSPITALIZED Disposition Time: 21:30 Patient Plan: Admission Patient Problems: Current Active Problems Problem Status Onset Alcohol intoxication Acute Chest pain Acute Condition: STABLE
[2018-07-12 20:29] LABS: ACETAMINOPHEN < 10.0 ug/ml (10.0-20.0); SALICYLATE < 1 mg/dL (2.0-20.0)
[2018-07-12 20:32] LABS: ALB/GLOB RATIO 1.3 (1.1-1.8); ALBUMIN 4.2 g/dL (3.0-4.8); ALT/SGPT 44 U/L (7-56); AST/SGOT 51 U/L (17-59); BLOOD UREA NITROGEN 23 mg/dL (7-21); CALCIUM 9.1 mg/dL (8.4-10.5); GFR NON-AFRICAN AMERICAN > 60
[2018-07-12 20:40] LABS: TROPONIN I < 0.01 ng/mL
[2018-07-12 20:51] LABS: BASO # 0.12 K/mm3 (0.0-2.0); BASO % 1.7 % (0.0-3.0); EOS # 0.1 (0.0-0.7); EOS % 0.7 % (1.5-5.0); GRAN # 3.42 (1.4-6.5); GRAN % 48.8 % (50.0-68.0); LYMPH # 2.5 (1.2-3.4); LYMPH % 36.2 % (22.0-35.0); MEAN CELL VOLUME 94.8 fl (80.0-105.0); MEAN CORPUSCULAR HEMOGLOBIN 31.1 pg (25.0-35.0); MEAN CORPUSCULAR HGB CONC 32.8 g/dl (31.0-37.0); MEAN PLATELET VOLUME 9.5 fl (7.0-11.0); MONO # 0.9 (0.1-0.6); MONO % 12.6 % (1.0-6.0); RBC 3.86 10^6/uL (3.5-6.1); RED CELL DISTRIBUTION WIDTH 13.5 % (11.5-14.5)
[2018-07-12 21:01] LABS: INR 0.92; PARTIAL THROMBOPLASTIN TIME 26.3 Seconds (25.1-36.5); PROTHROMBIN TIME 10.5 SECONDS (9.4-12.5)
[2018-07-12] MEDS ORDERED: TDAP Vaccine 0.5 mL Syr IM ONE (21:34)
--- NOTE | 2018-07-12 21:39 | CP.PCM.HP ---
<Sunil Huerta - Last Filed: 07/13/18 06:03> History of Present Illness - History of Present Illness History of Present Illness: PGY-1 H&P for Dr. Pedroza CC: Alcohol withdrawal and chest discomfort Patient is a 57 year old male with past medical history of HTN, panic attacks, CAD s/p stent (2012), and alcohol abuse presenting with chief complaint of alcohol withdrawal and chest discomfort. Patient reports ingesting 1/2 bottle of whiskey this afternoon but states his symptoms. Patient was discharged 07/08/2018 after extended stay for alcohol withdrawal. Patient has history of recurrent hospitalizations due to alcohol withdrawal. Patient also complains of chest discomfort, SOB, and palpitations that he had this morning. Patient states that he usually get these symptoms when he is having a panic attack and that these symptoms have resolved. He also states that he might have stepped on something and complains of left lateral foot discomfort. Patient denies SOB and chest pain at this time. He further denies headache, dizziness, tremors, fevers, chills, palpitations, abdominal pain, diarrhea, or dysuria. 12 point ROS reviewed and negative except mentioned in HPI. PMH: HTN, CAD s/p stent, alcohol abuse PSH: cardiac stent placement (2012) SHx: drinks approximately 15 beers per day, started drinking at age of 7. 4-7 cigarettes for 50 years, denies illicit drug use. FHx: denies Allergies: NKDA PMD: Dr. Victor Present on Admission - Present on Admission Any Indicators Present on Admission: No History of DVT/PE: No History of Uncontrolled Diabetes: No Urinary Catheter: No Decubitus Ulcer Present: No Review of Systems - Review of Systems All systems: reviewed and no additional remarkable complaints except Past Patient History - Infectious Disease Hx of Infectious Diseases: None - Tetanus Immunizations Tetanus Immunization: Unknown - Past Social History Smoking Status: Current Some Days Smoker - CARDIAC Hx Cardiac Disorders: Yes Hx Congestive Heart Failure: Yes (Paroxymal Afib) Hx Hypertension: Yes - PULMONARY Hx Respiratory Disorders: No - NEUROLOGICAL Hx Neurological Disorder: No - HEENT Hx HEENT Problems: No - RENAL Hx Chronic Kidney Disease: No - ENDOCRINE/METABOLIC Hx Endocrine Disorders: No - HEMATOLOGICAL/ONCOLOGICAL Hx Blood Disorders: No - INTEGUMENTARY Hx Dermatological Problems: No - MUSCULOSKELETAL/RHEUMATOLOGICAL Hx Falls: Yes - GASTROINTESTINAL Hx Gastrointestinal Disorders: No - GENITOURINARY/GYNECOLOGICAL Hx Genitourinary Disorders: No - PSYCHIATRIC Hx Psychophysiologic Disorder: Yes Hx Depression: Yes Hx Substance Use: No Other/Comment: ETOH ABUSE - SURGICAL HISTORY Hx Cardiac Catheterization: Yes (x1) Hx Coronary Stent: Yes - ANESTHESIA Hx Anesthesia: Yes Hx Anesthesia Reactions: No Hx Malignant Hyperthermia: No Meds Allergies/Adverse Reactions: Allergies Allergy/AdvReac Type Severity Reaction Status Date / Time No Known Allergies Allergy Verified 04/06/18 19:54 Physical Exam - Constitutional Appears: Non-toxic, No Acute Distress - Head Exam Head Exam: ATRAUMATIC, NORMAL INSPECTION - Eye Exam Eye Exam: EOMI, Normal appearance, PERRL. absent: Scleral icterus - ENT Exam ENT Exam: Mucous Membranes Dry - Respiratory Exam Respiratory Exam: Clear to Auscultation Bilateral, NORMAL BREATHING PATTERN. absent: Rales, Rhonchi, Wheezes - Cardiovascular Exam Cardiovascular Exam: REGULAR RHYTHM, +S1, +S2. absent: Gallop, Rubs, Systolic Murmur - GI/Abdominal Exam GI & Abdominal Exam: Normal Bowel Sounds, Soft. absent: Distended, Firm, Guarding, Tenderness - Extremities Exam Extremities exam: Positive for: pedal pulses present. Negative for: calf tenderness - Back Exam Back exam: NORMAL INSPECTION. absent: CVA tenderness (L), CVA tenderness (R) - Neurological Exam Neurological exam: Alert, CN II-XII Intact, Oriented x3 Additional comments: No tremors noted - Psychiatric Exam Psychiatric exam: Normal Affect, Normal Mood - Skin Skin Exam: Dry, Intact, Normal Color, Warm Additional comments: No foreign object seen on left lateral foot Results - Vital Signs Recent Vital Signs: Last Vital Signs Temp 98.2 F 07/12/18 19:10 Pulse 95 H 07/12/18 19:10 Resp 20 07/12/18 19:10 BP 120/70 07/12/18 19:10 Pulse Ox 95 07/12/18 19:10 - Labs Result Diagrams: 07/12/18 20:10 07/12/18 20:10 Labs: Laboratory Results - last 24 hr 07/12/18 07/12/18 07/12/18 20:02 20:10 20:10 WBC 7.0 D RBC 3.86 Hgb 12.0 L Hct 36.6 L MCV 94.8 MCH 31.1 MCHC 32.8 RDW 13.5 Plt Count 440 MPV 9.5 Gran % 48.8 L Lymph % (Auto) 36.2 H [place] % (Auto) 12.6 H Eos % (Auto) 0.7 L Baso % (Auto) 1.7 Gran # 3.42 Lymph # (Auto) 2.5 [place] # (Auto) 0.9 H Eos # (Auto) 0.1 Baso # (Auto) 0.12 PT INR APTT Sodium Potassium Chloride Carbon Dioxide Anion Gap BUN Creatinine Est GFR ( Amer) Est GFR (Non-Af Amer) POC Glucose (mg/dL) 107 Random Glucose Calcium Phosphorus Magnesium Total Bilirubin AST ALT Alkaline Phosphatase Troponin I NT-Pro-B Natriuret Pep Total Protein Albumin Globulin Albumin/Globulin Ratio Salicylates Acetaminophen Alcohol, Quantitative Influenza Typ A,B (EIA) Negative for flu a/b 07/12/18 07/12/18 07/12/18 20:10 20:10 20:10 WBC RBC Hgb Hct MCV MCH MCHC RDW Plt Count MPV Gran % Lymph % (Auto) [place] % (Auto) Eos % (Auto) Baso % (Auto) Gran # Lymph # (Auto) [place] # (Auto) Eos # (Auto) Baso # (Auto) PT INR APTT Sodium 141 Potassium 3.8 Chloride 109 H Carbon Dioxide 23 Anion Gap 13 BUN 23 H Creatinine 1.1 Est GFR ( Amer) > 60 Est GFR (Non-Af Amer) > 60 POC Glucose (mg/dL) Random Glucose 93 Calcium 9.1 Phosphorus 3.1 Magnesium 2.3 H Total Bilirubin 0.3 AST 51 ALT 44 Alkaline Phosphatase 79 Troponin I < 0.01 NT-Pro-B Natriuret Pep Total Protein 7.4 Albumin 4.2 Globulin 3.2 Albumin/Globulin Ratio 1.3 Salicylates < 1 L Acetaminophen < 10.0 L Alcohol, Quantitative 270 H Influenza Typ A,B (EIA) 07/12/18 07/12/18 20:10 20:10 WBC RBC Hgb Hct MCV MCH MCHC RDW Plt Count MPV Gran % Lymph % (Auto) [place] % (Auto) Eos % (Auto) Baso % (Auto) Gran # Lymph # (Auto) [place] # (Auto) Eos # (Auto) Baso # (Auto) PT 10.5 INR 0.92 APTT 26.3 Sodium Potassium Chloride Carbon Dioxide Anion Gap BUN Creatinine Est GFR ( Amer) Est GFR (Non-Af Amer) POC Glucose (mg/dL) Random Glucose Calcium Phosphorus Magnesium Total Bilirubin AST ALT Alkaline Phosphatase Troponin I NT-Pro-B Natriuret Pep 106 Total Protein Albumin Globulin Albumin/Globulin Ratio Salicylates Acetaminophen Alcohol, Quantitative Influenza Typ A,B (EIA) Assessment & Plan - Assessment and Plan (Free Text) Assessment: Patient is a 57 year old male with past medical history of HTN, panic attacks, CAD s/p stent (2012), and alcohol abuse presenting with chief complaint of generalized body aches and alcohol withdrawal. Plan: ETOH withdrawal - Ativan 2mg Q6H [place] and 1mg Q4H PRN - Banana bag x 1 - MV, folic acid, Thiamine daily - CIWA protocol - Fall and seizure protocol - ETOH level of 270 - Zofran 4mg IV PRN Left-sided chest discomfort, r/o ACS - EKst degree AV block (unchanged from previous studies), no ischemic changes - CXR: official read pending - Troponin: 0.01 x 1 - Trend troponins - ASA given in ED - Influenza A & B: negative - Lipid panel: pending - HbA1c (04/07/2018): 5.2 Left foot pain, r/o foreign body - Left foot Xray: official read pending - TDAP given in ED Prophylaxis: - GI: Protonix 40mg PO QD - DVT: Heparin 5000 SC Q8 Case discussed with Dr. Kasia Huerta. PGY-1 <Dary Pedroza - Last Filed: 07/13/18 07:14> Results - Vital Signs Recent Vital Signs: Last Vital Signs Temp 98 F 07/12/18 23:00 Pulse 87 07/12/18 23:00 Resp 18 07/12/18 23:00 BP 163/80 H 07/12/18 23:00 Pulse Ox 96 07/12/18 23:00 - Labs Result Diagrams: 07/12/18 20:10 07/12/18 20:10 Labs: Laboratory Results - last 24 hr 07/12/18 07/12/18 07/12/18 20:02 20:10 20:10 WBC 7.0 D RBC 3.86 Hgb 12.0 L Hct 36.6 L MCV 94.8 MCH 31.1 MCHC 32.8 RDW 13.5 Plt Count 440 MPV 9.5 Gran % 48.8 L Lymph % (Auto) 36.2 H [place] % (Auto) 12.6 H Eos % (Auto) 0.7 L Baso % (Auto) 1.7 Gran # 3.42 Lymph # (Auto) 2.5 [place] # (Auto) 0.9 H Eos # (Auto) 0.1 Baso # (Auto) 0.12 PT INR APTT Sodium Potassium Chloride Carbon Dioxide Anion Gap BUN Creatinine Est GFR ( Amer) Est GFR (Non-Af Amer) POC Glucose (mg/dL) 107 Random Glucose Calcium Phosphorus Magnesium Total Bilirubin AST ALT Alkaline Phosphatase Troponin I NT-Pro-B Natriuret Pep Total Protein Albumin Globulin Albumin/Globulin Ratio Urine Color Urine Appearance Urine pH Ur Specific [place] Urine Protein Urine Glucose (UA) Urine Ketones Urine Blood Urine Nitrate Urine Bilirubin Urine Urobilinogen Ur Leukocyte Esterase Salicylates Urine Opiates Screen Urine Methadone Screen Acetaminophen Ur Barbiturates Screen Ur Phencyclidine Scrn Ur Amphetamines Screen U Benzodiazepines Scrn U Oth Cocaine Metabols U Cannabinoids Screen Alcohol, Quantitative Influenza Typ A,B (EIA) Negative for flu a/b 07/12/18 07/12/18 07/12/18 20:10 20:10 20:10 WBC RBC Hgb Hct MCV MCH MCHC RDW Plt Count MPV Gran % Lymph % (Auto) [place] % (Auto) Eos % (Auto) Baso % (Auto) Gran # Lymph # (Auto) [place] # (Auto) Eos # (Auto) Baso # (Auto) PT INR APTT Sodium 141 Potassium 3.8 Chloride 109 H Carbon Dioxide 23 Anion Gap 13 BUN 23 H Creatinine 1.1 Est GFR ( Amer) > 60 Est GFR (Non-Af Amer) > 60 POC Glucose (mg/dL) Random Glucose 93 Calcium 9.1 Phosphorus 3.1 Magnesium 2.3 H Total Bilirubin 0.3 AST 51 ALT 44 Alkaline Phosphatase 79 Troponin I < 0.01 NT-Pro-B Natriuret Pep Total Protein 7.4 Albumin 4.2 Globulin 3.2 Albumin/Globulin Ratio 1.3 Urine Color Urine Appearance Urine pH Ur Specific [place] Urine Protein Urine Glucose (UA) Urine Ketones Urine Blood Urine Nitrate Urine Bilirubin Urine Urobilinogen Ur Leukocyte Esterase Salicylates < 1 L Urine Opiates Screen Urine Methadone Screen Acetaminophen < 10.0 L Ur Barbiturates Screen Ur Phencyclidine Scrn Ur Amphetamines Screen U Benzodiazepines Scrn U Oth Cocaine Metabols U Cannabinoids Screen Alcohol, Quantitative 270 H Influenza Typ A,B (EIA) 07/12/18 07/12/18 07/12/18 20:10 20:10 22:53 WBC RBC Hgb Hct MCV MCH MCHC RDW Plt Count MPV Gran % Lymph % (Auto) [place] % (Auto) Eos % (Auto) Baso % (Auto) Gran # Lymph # (Auto) [place] # (Auto) Eos # (Auto) Baso # (Auto) PT 10.5 INR 0.92 APTT 26.3 Sodium Potassium Chloride Carbon Dioxide Anion Gap BUN Creatinine Est GFR ( Amer) Est GFR (Non-Af Amer) POC Glucose (mg/dL) Random Glucose Calcium Phosphorus Magnesium Total Bilirubin AST ALT Alkaline Phosphatase Troponin I NT-Pro-B Natriuret Pep 106 Total Protein Albumin Globulin Albumin/Globulin Ratio Urine Color Yellow Urine Appearance Clear Urine pH 6.0 Ur Specific [place] 1.010 Urine Protein Negative Urine Glucose (UA) Negative Urine Ketones Negative Urine Blood Negative Urine Nitrate Negative Urine Bilirubin Negative Urine Urobilinogen 0.2 Ur Leukocyte Esterase Negative Salicylates Urine Opiates Screen Urine Methadone Screen Acetaminophen Ur Barbiturates Screen Ur Phencyclidine Scrn Ur Amphetamines Screen U Benzodiazepines Scrn U Oth Cocaine Metabols U Cannabinoids Screen Alcohol, Quantitative Influenza Typ A,B (EIA) 07/12/18 07/13/18 22:53 02:20 WBC RBC Hgb Hct MCV MCH MCHC RDW Plt Count MPV Gran % Lymph % (Auto) [place] % (Auto) Eos % (Auto) Baso % (Auto) Gran # Lymph # (Auto) [place] # (Auto) Eos # (Auto) Baso # (Auto) PT INR APTT Sodium Potassium Chloride Carbon Dioxide Anion Gap BUN Creatinine Est GFR ( Amer) Est GFR (Non-Af Amer) POC Glucose (mg/dL) Random Glucose Calcium Phosphorus Magnesium Total Bilirubin AST ALT Alkaline Phosphatase Troponin I 0.02 D NT-Pro-B Natriuret Pep Total Protein Albumin Globulin Albumin/Globulin Ratio Urine Color Urine Appearance Urine pH Ur Specific [place] Urine Protein Urine Glucose (UA) Urine Ketones Urine Blood Urine Nitrate Urine Bilirubin Urine Urobilinogen Ur Leukocyte Esterase Salicylates Urine Opiates Screen Negative Urine Methadone Screen Negative Acetaminophen Ur Barbiturates Screen Negative Ur Phencyclidine Scrn Negative Ur Amphetamines Screen Negative U Benzodiazepines Scrn Negative U Oth Cocaine Metabols Negative U Cannabinoids Screen Negative Alcohol, Quantitative Influenza Typ A,B (EIA) Attending/Attestation - Attestation I have personally seen and examined this patient.: Yes I have fully participated in the care of the patient.: Yes I have reviewed all pertinent clinical information: Yes Notes (Text): 07/13/18 06:35 Note: pt admits to drinking alcohol earlier in the day,however he says his symptoms are not related to drinking. He has history of HLD,will need to resume his Atorvastatin;has history of CAD,will place him on Aspirin. Pt seen with the resident by the bedside. Case discussed in detail. Agree with rest of documentation,assessment and plan of treatment. 07/13/18 06:52
[2018-07-12 23:07] LABS: URINE BILIRUBIN NEGATIVE (NEGATIVE); URINE BLOOD NEGATIVE (NEGATIVE); URINE GLUCOSE (UA) NEGATIVE (NEGATIVE); URINE LEUKOCYTE ESTERASE NEGATIVE Leu/uL (NEGATIVE); URINE PROTEIN NEGATIVE mg/dL (<30 mg/dL); URINE UROBILINOGEN 0.2 E.U./dL (<1 E.U./dL)
[2018-07-12 23:10] LABS: URINE APPEARANCE CLEAR (CLEAR); URINE COLOR YELLOW (YELLOW)
[2018-07-12] MEDS ORDERED: Multivitamin (MVI) 10 ML, Thiamine 100 MG, Folic Acid 1 MG in Sodium Chloride 0.9% 1,00... IV ONE (23:11)
[2018-07-12 23:16] LABS: BENZODIAZEPINES, UR NEGATIVE (NEGATIVE)
[2018-07-12 23:31] LABS: BARBITURATES, UR NEGATIVE (NEGATIVE); OPIATES, UR NEGATIVE (NEGATIVE); PHENCYCLIDINE, UR NEGATIVE (NEGATIVE)
[2018-07-13] MEDS: Pantoprazole 40 mg EC Tab PO SCH (06:37)
[2018-07-13 08:03] LABS: BASO # 0.14 K/mm3 (0.0-2.0); BASO % 2.4 % (0.0-3.0); EOS # 0.1 (0.0-0.7); EOS % 1.9 % (1.5-5.0); GRAN # 2.4 (1.4-6.5); GRAN % 41.1 % (50.0-68.0); HEMOGLOBIN 12.6 g/dL (14.0-18.0); LYMPH # 2.4 (1.2-3.4); MEAN CELL VOLUME 94.8 fl (80.0-105.0); MEAN CORPUSCULAR HEMOGLOBIN 31.5 pg (25.0-35.0); MEAN CORPUSCULAR HGB CONC 33.2 g/dl (31.0-37.0); MEAN PLATELET VOLUME 9.6 fl (7.0-11.0); MONO # 0.8 (0.1-0.6); MONO % 13.6 % (1.0-6.0); RED CELL DISTRIBUTION WIDTH 13.6 % (11.5-14.5); WHITE BLOOD COUNT 5.8 10^3/uL (4.5-11.0)
[2018-07-13 08:20] LABS: ALB/GLOB RATIO 1.3 (1.1-1.8); ALBUMIN 4.2 g/dL (3.0-4.8); ALT/SGPT 45 U/L (7-56); AST/SGOT 49 U/L (17-59); BLOOD UREA NITROGEN 18 mg/dL (7-21); CALCIUM 9.1 mg/dL (8.4-10.5); GFR NON-AFRICAN AMERICAN > 60; HDL CHOLESTEROL 82 mg/dL (29-60)
[2018-07-13 08:24] LABS: TROPONIN I 0.06 ng/mL
[2018-07-13 08:26] LABS: LDL CHOLESTEROL 68 mg/dL (0-129)
--- NOTE | 2018-07-13 09:49 | CARD ---
APPROVED REPORT Date of service: 07/12/2018 EKG Measurement Heart [id number] <Conclusion> Sinus rhythm with 1st degree AV block LAD PRWP LVH by voltage Wandering baseline
[2018-07-13] MEDS: Multivitamin With Minerals Tab PO SCH (10:20)
--- NOTE | 2018-07-13 10:36 | RAD ---
Date of service: 07/12/2018 HISTORY: chest pain COMPARISON: 07/01/2018 FINDINGS: LUNGS: No active pulmonary disease. PLEURA: No significant pleural effusion identified, no pneumothorax apparent. CARDIOVASCULAR: No aortic atherosclerotic calcification present. Normal cardiac size. No pulmonary vascular congestion. OSSEOUS STRUCTURES: No significant abnormalities. VISUALIZED UPPER ABDOMEN: Normal. OTHER FINDINGS: None. IMPRESSION: No active disease.
--- NOTE | 2018-07-13 11:13 | RAD ---
Date of service: 07/12/2018 PROCEDURE: Left Foot Radiographs. HISTORY: possible f/b lateral left foot COMPARISON: None. FINDINGS: BONES: Normal. No fracture. JOINTS: Normal. SOFT TISSUES: Small punctate tiny soft tissue densities are seen along the latter aspect of the plantar aspect of the foot. These appear to be within the dermal layer. OTHER FINDINGS: None. IMPRESSION: Small punctate tiny soft tissue densities are seen along the latter aspect of the plantar aspect of the foot. These appear to be within the dermal layer.
[2018-07-13] MEDS ORDERED: Enoxaparin 80 mg Syringe SC STA (14:43)
--- NOTE | 2018-07-13 14:50 | CP.PCM.PN ---
<Parth Lynne - Last Filed: 07/13/18 14:46> Subjective - Date & Time of Evaluation Date of Evaluation: 07/13/18 Time of Evaluation: 14:47 - Subjective Subjective: Parth Lynne, PGY1 Medicine Progress Note for Dr. Flores Patient was seen and examined at bedside this morning. Patient's vital signs are stable. He is AAOx3. Denies palpitations, diaphoresis, nausea, vomiting, diarrhea, tactile/visual/auditory hallucinations. Patient said his last drink was yesterday. He has some mild-mod pain at his left foot from stepping on glass. He has some chest and epigastric pain. No associated shortness of breath. A full 12 point ROS was conducted and unremarkable except as stated above. Objective - Vital Signs/Intake and Output Vital Signs (last 24 hours): Temp Pulse Resp BP Pulse Ox 98.2 F 84 14 127/65 95 07/13/18 11:56 07/13/18 11:56 07/13/18 11:56 07/13/18 11:56 07/13/18 11:56 - Medications Medications: Current Medications Aspirin (Ecotrin) 81 mg PO DAILY [facility] Last Admin: 07/13/18 10:20 Dose: 81 mg Atorvastatin Calcium (Lipitor) 20 mg PO DIN [facility] Folic Acid (Folic Acid) 1 mg PO DAILY [facility] Last Admin: 07/13/18 10:20 Dose: 1 mg Heparin Sodium (Porcine) (Heparin) 5,000 units SC Q8 [facility]; Protocol Last Admin: 07/13/18 13:19 Dose: 5,000 units Lorazepam (Ativan) 1 mg IVP Q4 PRN; Protocol PRN Reason: Symptoms of alcohol withdrawl Lorazepam (Ativan) 1 mg IVP Q6 [facility]; Protocol Last Admin: 07/13/18 12:02 Dose: 1 mg Metoprolol Tartrate (Lopressor) 12.5 mg PO 0800,1800 [facility] Multivitamins/Minerals (Therapeutic-M Tab) 1 tab PO DAILY [facility] Last Admin: 07/13/18 10:20 Dose: 1 tab Ondansetron HCl (Zofran Inj) 4 mg IVP Q4H PRN PRN Reason: Nausea/Vomiting Pantoprazole Sodium (Protonix Ec Tab) 40 mg PO 0600 [facility] Last Admin: 07/13/18 06:37 Dose: 40 mg Thiamine HCl (Vitamin B1 Tab) 100 mg PO DAILY [facility] Last Admin: 07/13/18 10:20 Dose: 100 mg - Labs Labs: 07/13/18 07:50 07/13/18 07:50 PT 10.5 SECONDS (9.4-12.5) 07/12/18 20:10 INR 0.92 07/12/18 20:10 APTT 26.3 Seconds (25.1-36.5) 07/12/18 20:10 - Constitutional Appears: No Acute Distress - Head Exam Head Exam: ATRAUMATIC, NORMAL INSPECTION, NORMOCEPHALIC - Eye Exam Eye Exam: Normal appearance Pupil Exam: NORMAL ACCOMODATION - ENT Exam ENT Exam: Mucous Membranes Moist - Neck Exam Neck Exam: Full ROM, Normal Inspection. absent: Lymphadenopathy - Respiratory Exam Respiratory Exam: Clear to Ausculation Bilateral, NORMAL BREATHING PATTERN. absent: Rales, Rhonchi, Wheezes - Cardiovascular Exam Cardiovascular Exam: RRR, +S1, +S2 Additional comments: No chest wall tenderness - GI/Abdominal Exam GI & Abdominal Exam: Soft, Normal Bowel Sounds. absent: Rigid, Tenderness, Organomegaly - Extremities Exam Extremities Exam: Full ROM. absent: Calf Tenderness, Joint Swelling, Pedal Edema Additional comments: Minor, small skin puncture of glass shard on the left lateral foot. No drainage. Superficial. No signs of infection. - Neurological Exam Neurological Exam: Alert, Awake, CN II-XII Intact, Oriented x3 - Psychiatric Exam Psychiatric exam: Normal Affect, Normal Mood - Skin Skin Exam: Dry, Intact, Normal Color, Warm Assessment and Plan - Assessment and Plan (Free Text) Assessment: Patient is a 57 year old male with past medical history of HTN, panic attacks, C AD s/p stent (2012), and alcohol abuse presenting with chest pain and left foot pain after stepping on glass. Patient's troponins were trending upwards. He is being managed for NSTEMI, Alcohol withdrawal, and left foot pain 2/2 foreign body. Plan: Chest Discomfort - NSTEMI 2/2 possible infarct with Hx of CAD w/ stent placement - trending upwards troponins: .01, .02, .06; additional trop was repeated and was 0.14 - Cardiology consulted for elevated trops and consideration of NSTEMI - JESS score is 2; 13% mortality rate - started on beta sarika, already on ASA, and ordered therapeutic lovenox at 1 mg/kg dosing - EKst degree AV block (unchanged from prior studies); no ischemia Alcohol Withdrawal - CIWA protocol - Last CIWA score was 0 at 1 am; last time ativan was administered was during midnight - tapered ativan to 1 mg IVP q4 prn and 1 mg IVP q6 standing - c/w multivitamin, folic acid, thiamine, banana bag - CIWA protocol - EtOH level was 270 in ED - c/w zofran Left Foot Pain 2/2 foreign body - Podiatry is on consult for evaluation of foreign body s/p stepping on glass - No leukocytosis or signs of infection at the left lateral foot - Left foot XR: small puncture of left lateral foot Prophylaxis: - GI: Protonix 40mg PO QD - DVT: Lovenox Dispo: Will monitor patient on tele. Follow up recommendations as per cardiology and podiatry. Case was discussed and reviewed with Attending Physician, Dr. Flores <Sweta Flores - Last Filed: 07/13/18 16:55> Objective - Vital Signs/Intake and Output Vital Signs (last 24 hours): Temp Pulse Resp BP Pulse Ox 98.2 F 84 14 151/83 H 95 07/13/18 11:56 07/13/18 15:24 07/13/18 15:24 07/13/18 15:10 07/13/18 11:56 - Medications Medications: Current Medications Aspirin (Ecotrin) 81 mg PO DAILY [facility] Last Admin: 07/13/18 10:20 Dose: 81 mg Atorvastatin Calcium (Lipitor) 20 mg PO DIN [facility] Folic Acid (Folic Acid) 1 mg PO DAILY [facility] Last Admin: 07/13/18 10:20 Dose: 1 mg Heparin Sodium (Porcine) (Heparin) 5,000 units SC Q8 [facility]; Protocol Last Admin: 07/13/18 13:19 Dose: 5,000 units Lorazepam (Ativan) 1 mg IVP Q4 PRN; Protocol PRN Reason: Symptoms of alcohol withdrawl Last Admin: 07/13/18 15:05 Dose: 1 mg Lorazepam (Ativan) 1 mg IVP Q6 [facility]; Protocol Last Admin: 07/13/18 12:02 Dose: 1 mg Metoprolol Tartrate (Lopressor) 12.5 mg PO 0800,1800 [facility] Multivitamins/Minerals (Therapeutic-M Tab) 1 tab PO DAILY [facility] Last Admin: 07/13/18 10:20 Dose: 1 tab Ondansetron HCl (Zofran Inj) 4 mg IVP Q4H PRN PRN Reason: Nausea/Vomiting Pantoprazole Sodium (Protonix Ec Tab) 40 mg PO 0600 [facility] Last Admin: 07/13/18 06:37 Dose: 40 mg Thiamine HCl (Vitamin B1 Tab) 100 mg PO DAILY [facility] Last Admin: 07/13/18 10:20 Dose: 100 mg - Labs Labs: 07/13/18 07:50 07/13/18 07:50 PT 10.5 SECONDS (9.4-12.5) 07/12/18 20:10 INR 0.92 07/12/18 20:10 APTT 26.3 Seconds (25.1-36.5) 07/12/18 20:10 Attending/Attestation - Attestation I have personally seen and examined this patient.: Yes I have fully participated in the care of the patient.: Yes I have reviewed all pertinent clinical information, including history, physical exam and plan: Yes Notes (Text): 07/13/18 16:43 57 year old male with past medical history of hypertension, CAD s/p stent, and alcohol abuse who presented with chest pain, left foot foot (after stepping on glass) and alcohol intoxication. His initial troponins were negative however now trending up to 0.14 this afternoon. Continue with aspirin and statin. Started on metoprolol and given dose of lovenox. Cardiology evaluation is requested and echocardiogram is ordered. Continue with ativan mervat/prn for withdrawal symptoms. He was counselled on alcohol cessation. Xray reviewed showed small punctate items in lateral aspect on left foot. Podiatry evaluation was requested. Sweta Flores MD Hospitalist.
[2018-07-13] MEDS ORDERED: Pneumococcal 23-Valent Vaccine IM ONE (16:05)
[2018-07-13] MEDS ORDERED: Influenza Vaccine 60 mcg/0.5 mL SYR (4YR UP) IM ONE (16:05)
[2018-07-14] MEDS: Pantoprazole 40 mg EC Tab PO SCH (05:57)
[2018-07-14 07:15] VITALS: RESP 20; O2SAT 98
[2018-07-14 07:15] LABS: BASO # 0.13 K/mm3 (0.0-2.0); BASO % 2.4 % (0.0-3.0); EOS # 0.1 (0.0-0.7); EOS % 2.4 % (1.5-5.0); GRAN # 2.34 (1.4-6.5); GRAN % 44.2 % (50.0-68.0); LYMPH # 2.1 (1.2-3.4); LYMPH % 39.7 % (22.0-35.0); MEAN CELL VOLUME 95.1 fl (80.0-105.0); MEAN CORPUSCULAR HEMOGLOBIN 31.1 pg (25.0-35.0); MEAN CORPUSCULAR HGB CONC 32.7 g/dl (31.0-37.0); MEAN PLATELET VOLUME 9.9 fl (7.0-11.0); MONO # 0.6 (0.1-0.6); MONO % 11.3 % (1.0-6.0); RBC 3.86 10^6/uL (3.5-6.1); RED CELL DISTRIBUTION WIDTH 13.4 % (11.5-14.5); WHITE BLOOD COUNT 5.3 10^3/uL (4.5-11.0)
[2018-07-14 07:36] LABS: ALB/GLOB RATIO 1.2 (1.1-1.8); ALBUMIN 3.9 g/dL (3.0-4.8); ALT/SGPT 38 U/L (7-56); AST/SGOT 54 U/L (17-59); BLOOD UREA NITROGEN 14 mg/dL (7-21); CALCIUM 9.2 mg/dL (8.4-10.5); GFR NON-AFRICAN AMERICAN > 60
[2018-07-14] MEDS: Multivitamin With Minerals Tab PO SCH ×2 (08:32→12:57)
--- NOTE | 2018-07-14 09:32 | CP.PCM.CON ---
History of Present Illness - History of Present Illness History of Present Illness: Podiatry consult note for Dr. Avila 57M seen and evaluated at bedside. Patient has pmhx of chronic alcohol use. States he stepped on glass on his left foot. States that he believes it was in his foot but may have been taken out on admission to the hospital. Does not recall how big of a piece was in his foot or if there was any bleeding or drainage associated. Denies N/V/F/C/SOB/CP and has no other acute complaints. PMHx: HTN, CAD s/p stent, alcohol abuse PSHx: cardiac stent placement (2012) All: NKDA Past Patient History - Infectious Disease Hx of Infectious Diseases: None - Tetanus Immunizations Tetanus Immunization: Unknown - Past Social History Smoking Status: Former Smoker - CARDIAC Hx Cardiac Disorders: Yes (a fib, palpitations, cad) Hx Cardia Arrhythmia: Yes Hx Congestive Heart Failure: Yes (Paroxymal Afib) Hx Hypercholesterolemia: Yes Hx Hypertension: Yes Hx Pacemaker: Yes Other/Comment: paroxymal afib, irregular heartbeat - PULMONARY Hx Respiratory Disorders: Yes Hx Asthma: Yes Hx Bronchitis: Yes Hx Chronic Obstructive Pulmonary Disease (COPD): Yes - NEUROLOGICAL Hx Neurological Disorder: Yes (loc) Hx Dizziness: Yes Other/Comment: hand tremors, syncope, weakness, numbness no feeling one half r hand 3rd finger all of fingers 4 and 5 - HEENT Hx HEENT Problems: Yes (eyeglasses) - RENAL Hx Chronic Kidney Disease: No - ENDOCRINE/METABOLIC Hx Endocrine Disorders: No - HEMATOLOGICAL/ONCOLOGICAL Hx Blood Disorders: Yes Other/Comment: hyponatremia - INTEGUMENTARY Hx Dermatological Problems: Yes Other/Comment: left chest scar pt cut himself "in [place]", tatoo top of r ft, b/l dry toenails, dry skin to heels and bottom both feet, small 0.1cm wound outer left ft "stepped on glass" c/o pain when walking, indentation r hand b etween thumb and forefinger about 1 yr cause unknown, c/o no feeling numbness fingers 3 one half, 4 5 right hand - MUSCULOSKELETAL/RHEUMATOLOGICAL Hx Falls: Yes - GASTROINTESTINAL Hx Gastrointestinal Disorders: Yes (gi bleed) - GENITOURINARY/GYNECOLOGICAL Hx Genitourinary Disorders: No - PSYCHIATRIC Hx Substance Use: No - SURGICAL HISTORY Hx Surgeries: Yes Hx Cardiac Catheterization: Yes (x1 2011) Hx Coronary Stent: Yes Other/Comment: forehead laceration repair 07/16/2012, cardiac caterization and stent - ANESTHESIA Hx Anesthesia: Yes Hx Anesthesia Reactions: No Hx Malignant Hyperthermia: No Meds Allergies/Adverse Reactions: Allergies Allergy/AdvReac Type Severity Reaction Status Date / Time No Known Allergies Allergy Verified 04/06/18 19:54 - Medications Medications: Current Medications Aspirin (Ecotrin) 81 mg PO DAILY [facility] Last Admin: 07/14/18 08:32 Dose: 81 mg Atorvastatin Calcium (Lipitor) 20 mg PO DIN [facility] Last Admin: 07/13/18 18:06 Dose: 20 mg Folic Acid (Folic Acid) 1 mg PO DAILY [facility] Last Admin: 07/14/18 08:32 Dose: 1 mg Heparin Sodium (Porcine) (Heparin) 5,000 units SC Q8 [facility]; Protocol Last Admin: 07/13/18 13:19 Dose: 5,000 units Lorazepam (Ativan) 1 mg IVP Q4 PRN; Protocol PRN Reason: Symptoms of alcohol withdrawl Last Admin: 07/14/18 08:31 Dose: 1 mg Lorazepam (Ativan) 1 mg IVP Q8 [facility]; Protocol Metoprolol Tartrate (Lopressor) 12.5 mg PO 0800,1800 [facility] Last Admin: 07/14/18 08:32 Dose: 12.5 mg Multivitamins/Minerals (Therapeutic-M Tab) 1 tab PO DAILY [facility] Last Admin: 07/14/18 08:32 Dose: 1 tab Ondansetron HCl (Zofran Inj) 4 mg IVP Q4H PRN PRN Reason: Nausea/Vomiting Pantoprazole Sodium (Protonix Ec Tab) 40 mg PO 0600 [facility] Last Admin: 07/14/18 05:57 Dose: 40 mg Thiamine HCl (Vitamin B1 Tab) 100 mg PO DAILY [facility] Last Admin: 07/14/18 08:32 Dose: 100 mg Physical Exam - Constitutional Appears: Non-toxic, No Acute Distress - Head Exam Head Exam: ATRAUMATIC, NORMOCEPHALIC - Extremities Exam Additional comments: LLE focused VASC: DP and PT pulses palpable; cap refill <3 seconds to all digits; temp gradient warm to cool from proximal to distal; no edema to LE DERM: no open lesions or wounds appreciated; no erythema or streaking noted; h yperkeratotic skin development submet 5; no evidence of glass in foot ORTHO: no pain or tenderness on palpation of area where glass had been; no other gross pathology noted NEURO: gross and protective sensation intact - Neurological Exam Neurological exam: Alert, Oriented x3 - Psychiatric Exam Psychiatric exam: Normal Affect, Normal Mood Results - Vital Signs Recent Vital Signs: Last Vital Signs Temp 98.0 F 07/14/18 06:00 Pulse 78 07/14/18 08:32 Resp 20 07/14/18 06:00 BP 125/74 07/14/18 08:32 Pulse Ox 98 07/14/18 06:00 - Labs Result Diagrams: 07/14/18 07:00 07/14/18 07:00 Labs: Laboratory Results - last 24 hr 07/13/18 07/14/18 07/14/18 13:10 07:00 07:00 WBC 5.3 RBC 3.86 Hgb 12.0 L Hct 36.7 L MCV 95.1 MCH 31.1 MCHC 32.7 RDW 13.4 Plt Count 407 MPV 9.9 Gran % 44.2 L Lymph % (Auto) 39.7 H [place] % (Auto) 11.3 H Eos % (Auto) 2.4 Baso % (Auto) 2.4 Gran # 2.34 Lymph # (Auto) 2.1 [place] # (Auto) 0.6 Eos # (Auto) 0.1 Baso # (Auto) 0.13 Sodium 138 Potassium 4.0 Chloride 104 Carbon Dioxide 30 Anion Gap 8 L BUN 14 Creatinine 0.7 L Est GFR ( Amer) > 60 Est GFR (Non-Af Amer) > 60 Random Glucose 93 Calcium 9.2 Phosphorus 2.7 Magnesium 2.0 Total Bilirubin 0.8 AST 54 ALT 38 Alkaline Phosphatase 75 Lactate Dehydrogenase 565 Total Creatine Kinase 124 Troponin I 0.14 H* D 0.10 D Total Protein 7.2 Albumin 3.9 Globulin 3.3 Albumin/Globulin Ratio 1.2 Assessment & Plan - Assessment and Plan (Free Text) Assessment: 57M with hyperkeratotic lesion sub met 5 on left foot Plan: Patient seen and evaluated with Dr. Avila Afebrile, absent leukocytosis X-ray left foot ordered - f/u results Hyperkeratotitc lesion debrided - no evidence of glass remaining in foot, no evidence of clinical infection Pending x-ray results - if negative, podiatry to sign off, patient stable from our standpoint Thank you for the consult - Date & Time Date: 07/14/18 Time: 09:37
--- NOTE | 2018-07-14 11:29 | CARD ---
APPROVED REPORT Date of service: 07/14/2018 EXAM: Two-dimensional and M-mode echocardiogram with Doppler and color Doppler. INDICATION ELEVATED TROPONIN 2D DIMENSIONS Left Atrium (2D)3.8 (1.6-4.0cm)IVSd1.3 (0.7-1.1cm) LVDd4.6 (3.9-5.9cm)PWd1.5 (0.7-1.1cm) LVDs3.0 (2.5-4.0cm)FS (%) 33.8 % LVEF (%)62.8 (>50%) M-Mode DIMENSIONS Aortic Root3.30 (2.2-3.7cm)Aortic Cusp Exc.2.10 (1.5-2.0cm) Aortic Valve AoV Peak Dyouaxtu276.0cm/Omayra Peak GR.6mmHg Mitral Valve MV E Gdegrcew16.1cm/sMV A Vsykigtm88.5cm/sE/A ratio0.9 TDI E/Lateral E'0.0E/Medial E'0.0 Tricuspid Valve TR Peak [id number]/sRAP [id number] Peak Gr.7mmHg [id number] LEFT VENTRICLE The left ventricle is normal size. There is mild concentric left ventricular hypertrophy. The left ventricular function is normal. The left ventricular ejection fraction is within the normal range. There is normal LV segmental wall motion. RIGHT VENTRICLE The right ventricle is normal size. The right ventricular systolic function is normal. ATRIA The left atrium size is normal. The right atrium size is normal. The interatrial septum is intact with no evidence for an atrial septal defect. AORTIC VALVE The aortic valve is normal in structure. No aortic regurgitation is present. There is no aortic valvular stenosis. MITRAL VALVE The mitral valve is normal in structure. There is no mitral valve regurgitation noted. TRICUSPID VALVE The tricuspid valve is normal in structure. There is no tricuspid valve regurgitation noted. PULMONIC VALVE The pulmonary valve is normal in structure. GREAT VESSELS The aortic root is normal in size. The IVC is normal in size and collapses >50% with inspiration. PERICARDIAL EFFUSION There is no pleural effusion. There is no pericardial effusion. <Conclusion> Normal chamber size. Normal LV systolic function. Mild concentric LVH. No valvular abnormalities noted.
[2018-07-14 12:45] VITALS: BP 141/91; PULSE 91; TEMP 98.4
--- NOTE | 2018-07-14 13:44 | RAD ---
Date of service: 07/14/2018 PROCEDURE: Left Foot Radiographs. HISTORY: stepped on glass at fifth [facility]J COMPARISON: 07/12/2018 FINDINGS: BONES: Normal. No fracture. JOINTS: Normal. SOFT TISSUES: No evidence of foreign body. Previously identified foreign bodies are no longer seen OTHER FINDINGS: None. IMPRESSION: No evidence of foreign body. Previously identified foreign bodies are no longer seen
--- NOTE | 2018-07-14 15:00 | CON ---
DATE: 07/14/2018 CARDIOLOGY CONSULTATION HISTORY: The patient is a 57-year-old male who presents to the emergency room after an alcoholic binge complaining of palpitations and atypical chest pain. The patient apparently had half a bottle of whiskey this afternoon and has had marked anxiety. PAST MEDICAL HISTORY: The patient's past medical history includes hypertension and stents in the past; has been noncompliant. He does not follow up with any physicians. In addition, he suffers from hypertension. SOCIAL HISTORY: He is an active smoker and active drinker. REVIEW OF SYSTEMS: The patient states he has no problems now. He denies anginal symptoms, instead complains of only palpitations after his alcoholic binge. PHYSICAL EXAMINATION: VITAL SIGNS: Blood pressure 125/74, the heart rates in the 70s. NECK: Negative JVD. LUNGS: Without rales. HEART: With S1, S2. EXTREMITIES: Without edema. DIAGNOSTIC DATA: EKG shows normal sinus rhythm with LVH and poor R-wave progression. LABORATORY DATA: Hemoglobin is 12. Chemistries reveal troponin of 0.01 up to 0.14 and is down to 0.10. IMPRESSION: 1. Status post alcoholic binge. 2. Hypertension. 3. Chronic obstructive pulmonary disease. 4. Active smoker. 5. Borderline elevated troponins. 6. The patient denies all anginal symptoms at this time. I have discussed his need to stop smoking and stop drinking, which he is not interested in hearing. I have discussed possible cardiac catheterization which the patient refuses at this time. We will arrange for an outpatient stress test if the patient to be giving the opportunity, and begin to help take care of his health. We will discontinue telemetry today. The patient insists on going home. Amari Jacobsen MD
--- NOTE | 2018-07-14 15:07 | CP.PCM.DIS ---
<Kristan Harmon - Last Filed: 07/14/18 18:37> Provider - Provider Date of Admission: 07/12/18 21:34 Attending physician: Sweta Flores MD Consults: 07/13/18 12:34 Physician Consult Routine Comment: Consulting Provider: Maria Alejandra Avila Consulting Physician: Maria Alejandra Avila Reason for Consult: stepped on glass on left foot 07/13/18 14:26 Cardiology Consult Routine Comment: Consulting Provider: Amari Jacobsen Consulting Physician: Amari Jacobsen Reason for Consult: elevated trops, chest pain 07/13/18 14:56 Social Work Referral Routine Comment: chest pain/etoh Physician Instructions: Reason For Exam: eval 07/13/18 16:05 Inpatient RN POOL Core Measures Referral Routine Comment: chest pain alcohol abuse Physician Instructions: Reason For Exam: eval Transition In Care/Readmission Reduction Routine Comment: cp alcohol abuse Physician Instructions: Reason For Exam: eval Time Spent in preparation of Discharge (in minutes): 45 Diagnosis - Discharge Diagnosis (1) Alcohol intoxication Status: Chronic (2) Chest pain Status: Acute (3) Alcohol withdrawal Status: Acute Priority: High (4) HTN (hypertension) Status: Acute Hospital Course - Lab Results Lab Results: Most Recent Lab Values WBC 5.3 10^3/uL (4.5-11.0) 07/14/18 07:00 RBC 3.86 10^6/uL (3.5-6.1) 07/14/18 07:00 Hgb 12.0 g/dL (14.0-18.0) L 07/14/18 07:00 Hct 36.7 % (42.0-52.0) L 07/14/18 07:00 MCV 95.1 fl (80.0-105.0) 07/14/18 07:00 MCH 31.1 pg (25.0-35.0) 07/14/18 07:00 MCHC 32.7 g/dl (31.0-37.0) 07/14/18 07:00 RDW 13.4 % (11.5-14.5) 07/14/18 07:00 Plt Count 407 10^3/uL (120.0-450.0) 07/14/18 07:00 MPV 9.9 fl (7.0-11.0) 07/14/18 07:00 Gran % 44.2 % (50.0-68.0) L 07/14/18 07:00 Lymph % (Auto) 39.7 % (22.0-35.0) H 07/14/18 07:00 [place] % (Auto) 11.3 % (1.0-6.0) H 07/14/18 07:00 Eos % (Auto) 2.4 % (1.5-5.0) 07/14/18 07:00 Baso % (Auto) 2.4 % (0.0-3.0) 07/14/18 07:00 Gran # 2.34 (1.4-6.5) 07/14/18 07:00 Lymph # (Auto) 2.1 (1.2-3.4) 07/14/18 07:00 [place] # (Auto) 0.6 (0.1-0.6) 07/14/18 07:00 Eos # (Auto) 0.1 (0.0-0.7) 07/14/18 07:00 Baso # (Auto) 0.13 K/mm3 (0.0-2.0) 07/14/18 07:00 PT 10.5 SECONDS (9.4-12.5) 07/12/18 20:10 INR 0.92 07/12/18 20:10 APTT 26.3 Seconds (25.1-36.5) 07/12/18 20:10 Sodium 138 mmol/L (132-148) 07/14/18 07:00 Potassium 4.0 mmol/L (3.6-5.0) 07/14/18 07:00 Chloride 104 mmol/L (98-107) 07/14/18 07:00 Carbon Dioxide 30 mmol/L (21-33) 07/14/18 07:00 Anion Gap 8 (10-20) L 07/14/18 07:00 BUN 14 mg/dL (7-21) 07/14/18 07:00 Creatinine 0.7 mg/dl (0.8-1.5) L 07/14/18 07:00 Est GFR ( Amer) > 60 07/14/18 07:00 Est GFR (Non-Af Amer) > 60 07/14/18 07:00 POC Glucose (mg/dL) 107 mg/dL (65-110) 07/12/18 20:02 Random Glucose 93 mg/dL (70-110) 07/14/18 07:00 Calcium 9.2 mg/dL (8.4-10.5) 07/14/18 07:00 Phosphorus 2.7 mg/dL (2.5-4.5) 07/14/18 07:00 Magnesium 2.0 mg/dL (1.7-2.2) 07/14/18 07:00 Total Bilirubin 0.8 mg/dL (0.2-1.3) 07/14/18 07:00 AST 54 U/L (17-59) 07/14/18 07:00 ALT 38 U/L (7-56) 07/14/18 07:00 Alkaline Phosphatase 75 U/L (38-126) 07/14/18 07:00 Lactate Dehydrogenase 565 U/L (333-699) 07/14/18 07:00 Total Creatine Kinase 124 U/L (35-230) 07/14/18 07:00 Troponin I 0.10 ng/mL D 07/14/18 07:00 NT-Pro-B Natriuret Pep 106 pg/mL (0-450) 07/12/18 20:10 Total Protein 7.2 g/dL (5.8-8.3) 07/14/18 07:00 Albumin 3.9 g/dL (3.0-4.8) 07/14/18 07:00 Globulin 3.3 gm/dL 07/14/18 07:00 Albumin/Globulin Ratio 1.2 (1.1-1.8) 07/14/18 07:00 Triglycerides 143 mg/dL (35-160) 07/13/18 07:50 Cholesterol 170 mg/dL (130-200) 07/13/18 07:50 LDL Cholesterol Direct 68 mg/dL (0-129) 07/13/18 07:50 HDL Cholesterol 82 mg/dL (29-60) H 07/13/18 07:50 Urine Color Yellow (YELLOW) 07/12/18 22:53 Urine Appearance Clear (CLEAR) 07/12/18 22:53 Urine pH 6.0 (4.7-8.0) 07/12/18 22:53 Ur Specific [place] 1.010 (1.005-1.035) 07/12/18 22:53 Urine Protein Negative mg/dL (<30 mg/dL) 07/12/18 22:53 Urine Glucose (UA) Negative mg/dL (NEGATIVE) 07/12/18 22:53 Urine Ketones Negative mg/dL (NEGATIVE) 07/12/18 22:53 Urine Blood Negative (NEGATIVE) 07/12/18 22:53 Urine Nitrate Negative (NEGATIVE) 07/12/18 22:53 Urine Bilirubin Negative (NEGATIVE) 07/12/18 22:53 Urine Urobilinogen 0.2 E.U./dL (<1 E.U./dL) 07/12/18 22:53 Ur Leukocyte Esterase Negative Shahzad/uL (NEGATIVE) 07/12/18 22:53 Salicylates < 1 mg/dL (2.0-20.0) L 07/12/18 20:10 Urine Opiates Screen Negative (NEGATIVE) 07/12/18 22:53 Urine Methadone Screen Negative (NEGATIVE) 07/12/18 22:53 Acetaminophen < 10.0 ug/ml (10.0-20.0) L 07/12/18 20:10 Ur Barbiturates Screen Negative (NEGATIVE) 07/12/18 22:53 Ur Phencyclidine Scrn Negative (NEGATIVE) 07/12/18 22:53 Ur Amphetamines Screen Negative (NEGATIVE) 07/12/18 22:53 U Benzodiazepines Scrn Negative (NEGATIVE) 07/12/18 22:53 U Oth Cocaine Metabols Negative (NEGATIVE) 07/12/18 22:53 U Cannabinoids Screen Negative (NEGATIVE) 07/12/18 22:53 Alcohol, Quantitative 270 mg/dL (0-10) H 07/12/18 20:10 Influenza Typ A,B (EIA) Negative for flu a/b (NEGATIVE) 07/12/18 20:10 - Hospital Course Hospital Course: This is a 57 year old male with past medical history of HTN, panic attacks, CAD s/p stent (2012), and alcohol abuse presenting with chief complaint of alcohol withdrawal and chest discomfort. Patient was recently discharged from [facility] 07/08/2018 after extended stay for alcohol withdrawal. Patient has history of recurrent hospitalizations due to alcohol withdrawal. Patient also complains of chest discomfort, SOB, and palpitations that he had this morning. Patients EKG reviewed no new changes, troponins trended up initially 0.02-.06-0.14, then trended down to 0.10. Cardiology, Dr Jacobsen, consulted. Echocardiogram revealed EF 62.8%, no wall motion abnormalities. Cardiology recommended outpatient stress test. His alcohol withdrawal symptoms were adequately treated with Ativan and tapered off. He was also found to have a small piece of glass in his left foot, podiatry was consulted, who removed the foreign body. Repeat foot x ray revealed no foreign bodies. Patient currently feels well, low CIWA score, ambulating in hallway. Patient will be discharged home, patient recommended to stop alcohol usage and use alcoholic anonymous. Case seen and discussed with attending, Dr Flores. Discharge Exam - Head Exam Head Exam: ATRAUMATIC, NORMOCEPHALIC - Eye Exam Eye Exam: EOMI, PERRL. absent: Nystagmus, Scleral icterus Pupil Exam: NORMAL ACCOMODATION, PERRL - ENT Exam ENT Exam: Mucous Membranes Moist - Neck Exam Neck exam: Full Rom - Respiratory Exam Respiratory Exam: Clear to PA & Lateral, NORMAL BREATHING PATTERN. absent: Chest Wall Tenderness, Rales, Rhonchi - Cardiovascular Exam Cardiovascular Exam: RRR, +S1, +S2. absent: Systolic Murmur - GI/Abdominal Exam GI & Abdominal Exam: Normal Bowel Sounds, Soft. absent: Distended, Firm, Guarding, Rebound, Rigid - Extremities Exam Extremities exam: normal inspection - Back Exam Back exam: NORMAL INSPECTION - Neurological Exam Neurological exam: Alert, CN II-XII Intact, Normal Gait, Oriented x3 - Psychiatric Exam Psychiatric exam: Normal Affect, Normal Mood - Skin Skin Exam: Dry, Normal Color, Warm Discharge Plan - Discharge Medications Prescriptions: Aspirin [Ecotrin] 81 mg PO DAILY #30 tabec Atorvastatin [Lipitor] 20 mg PO DIN #30 tab Folic Acid 1 mg PO DAILY #30 tab Metoprolol Tartrate [Lopressor] 12.5 mg PO 0800,1800 #60 tab Multimineral/Multivitamin [Therapeutic-M Tab] 1 tab PO DAILY #30 tab Thiamine [Vitamin B1 Tab] 100 mg PO DAILY #30 tab - Follow Up Plan Condition: STABLE Disposition: HOME/ ROUTINE Instructions: Alcohol Withdrawal (DC), Chest Pain (ED) Additional Instructions: Follow up with your primary care doctor Dr Victor in 1 week. Follow up with Cardiology Dr Jacobsen about outpatient stress test. Take your medications as prescribed: ASA 81 mg, Lipitor, Lopressor, Multivitamin, Folate, thiamine. You have been prescriptions for all of these. Refrain from drinking alcohol and follow up with AA meetings. Return to ED for any worsening of symptoms. Referrals: Leigh Hester MD [Staff Provider] - <Sweta Flores - Last Filed: 07/15/18 09:19> Provider - Provider Date of Admission: 07/13/18 18:44 Attending physician: Sweta Flores MD Consults: 07/13/18 12:34 Physician Consult Routine Comment: Consulting Provider: Maria Alejandra Avila Consulting Physician: Maria Alejandra Avila Reason for Consult: stepped on glass on left foot 07/13/18 14:26 Cardiology Consult Routine Comment: Consulting Provider: Amari Jacobsen Consulting Physician: Amari Jacobsen Reason for Consult: elevated trops, chest pain 07/13/18 14:56 Social Work Referral Routine Comment: chest pain/etoh Physician Instructions: Reason For Exam: eval 07/13/18 16:05 Inpatient RN POOL Core Measures Referral Routine Comment: chest pain alcohol abuse Physician Instructions: Reason For Exam: eval Transition In Care/Readmission Reduction Routine Comment: cp alcohol abuse Physician Instructions: Reason For Exam: eval Hospital Course - Lab Results Lab Results: Most Recent Lab Values WBC 5.3 10^3/uL (4.5-11.0) 07/14/18 07:00 RBC 3.86 10^6/uL (3.5-6.1) 07/14/18 07:00 Hgb 12.0 g/dL (14.0-18.0) L 07/14/18 07:00 Hct 36.7 % (42.0-52.0) L 07/14/18 07:00 MCV 95.1 fl (80.0-105.0) 07/14/18 07:00 MCH 31.1 pg (25.0-35.0) 07/14/18 07:00 MCHC 32.7 g/dl (31.0-37.0) 07/14/18 07:00 RDW 13.4 % (11.5-14.5) 07/14/18 07:00 Plt Count 407 10^3/uL (120.0-450.0) 07/14/18 07:00 MPV 9.9 fl (7.0-11.0) 07/14/18 07:00 Gran % 44.2 % (50.0-68.0) L 07/14/18 07:00 Lymph % (Auto) 39.7 % (22.0-35.0) H 07/14/18 07:00 [place] % (Auto) 11.3 % (1.0-6.0) H 07/14/18 07:00 Eos % (Auto) 2.4 % (1.5-5.0) 07/14/18 07:00 Baso % (Auto) 2.4 % (0.0-3.0) 07/14/18 07:00 Gran # 2.34 (1.4-6.5) 07/14/18 07:00 Lymph # (Auto) 2.1 (1.2-3.4) 07/14/18 07:00 [place] # (Auto) 0.6 (0.1-0.6) 07/14/18 07:00 Eos # (Auto) 0.1 (0.0-0.7) 07/14/18 07:00 Baso # (Auto) 0.13 K/mm3 (0.0-2.0) 07/14/18 07:00 PT 10.5 SECONDS (9.4-12.5) 07/12/18 20:10 INR 0.92 07/12/18 20:10 APTT 26.3 Seconds (25.1-36.5) 07/12/18 20:10 Sodium 138 mmol/L (132-148) 07/14/18 07:00 Potassium 4.0 mmol/L (3.6-5.0) 07/14/18 07:00 Chloride 104 mmol/L (98-107) 07/14/18 07:00 Carbon Dioxide 30 mmol/L (21-33) 07/14/18 07:00 Anion Gap 8 (10-20) L 07/14/18 07:00 BUN 14 mg/dL (7-21) 07/14/18 07:00 Creatinine 0.7 mg/dl (0.8-1.5) L 07/14/18 07:00 Est GFR ( Amer) > 60 07/14/18 07:00 Est GFR (Non-Af Amer) > 60 07/14/18 07:00 POC Glucose (mg/dL) 107 mg/dL (65-110) 07/12/18 20:02 Random Glucose 93 mg/dL (70-110) 07/14/18 07:00 Calcium 9.2 mg/dL (8.4-10.5) 07/14/18 07:00 Phosphorus 2.7 mg/dL (2.5-4.5) 07/14/18 07:00 Magnesium 2.0 mg/dL (1.7-2.2) 07/14/18 07:00 Total Bilirubin 0.8 mg/dL (0.2-1.3) 07/14/18 07:00 AST 54 U/L (17-59) 07/14/18 07:00 ALT 38 U/L (7-56) 07/14/18 07:00 Alkaline Phosphatase 75 U/L (38-126) 07/14/18 07:00 Lactate Dehydrogenase 565 U/L (333-699) 07/14/18 07:00 Total Creatine Kinase 124 U/L (35-230) 07/14/18 07:00 Troponin I 0.10 ng/mL D 07/14/18 07:00 NT-Pro-B Natriuret Pep 106 pg/mL (0-450) 07/12/18 20:10 Total Protein 7.2 g/dL (5.8-8.3) 07/14/18 07:00 Albumin 3.9 g/dL (3.0-4.8) 07/14/18 07:00 Globulin 3.3 gm/dL 07/14/18 07:00 Albumin/Globulin Ratio 1.2 (1.1-1.8) 07/14/18 07:00 Triglycerides 143 mg/dL (35-160) 07/13/18 07:50 Cholesterol 170 mg/dL (130-200) 07/13/18 07:50 LDL Cholesterol Direct 68 mg/dL (0-129) 07/13/18 07:50 HDL Cholesterol 82 mg/dL (29-60) H 07/13/18 07:50 Urine Color Yellow (YELLOW) 07/12/18 22:53 Urine Appearance Clear (CLEAR) 07/12/18 22:53 Urine pH 6.0 (4.7-8.0) 07/12/18 22:53 Ur Specific [place] 1.010 (1.005-1.035) 07/12/18 22:53 Urine Protein Negative mg/dL (<30 mg/dL) 07/12/18 22:53 Urine Glucose (UA) Negative mg/dL (NEGATIVE) 07/12/18 22:53 Urine Ketones Negative mg/dL (NEGATIVE) 07/12/18 22:53 Urine Blood Negative (NEGATIVE) 07/12/18 22:53 Urine Nitrate Negative (NEGATIVE) 07/12/18 22:53 Urine Bilirubin Negative (NEGATIVE) 07/12/18 22:53 Urine Urobilinogen 0.2 E.U./dL (<1 E.U./dL) 07/12/18 22:53 Ur Leukocyte Esterase Negative Shahzad/uL (NEGATIVE) 07/12/18 22:53 Salicylates < 1 mg/dL (2.0-20.0) L 07/12/18 20:10 Urine Opiates Screen Negative (NEGATIVE) 07/12/18 22:53 Urine Methadone Screen Negative (NEGATIVE) 07/12/18 22:53 Acetaminophen < 10.0 ug/ml (10.0-20.0) L 07/12/18 20:10 Ur Barbiturates Screen Negative (NEGATIVE) 07/12/18 22:53 Ur Phencyclidine Scrn Negative (NEGATIVE) 07/12/18 22:53 Ur Amphetamines Screen Negative (NEGATIVE) 07/12/18 22:53 U Benzodiazepines Scrn Negative (NEGATIVE) 07/12/18 22:53 U Oth Cocaine Metabols Negative (NEGATIVE) 07/12/18 22:53 U Cannabinoids Screen Negative (NEGATIVE) 07/12/18 22:53 Alcohol, Quantitative 270 mg/dL (0-10) H 07/12/18 20:10 Influenza Typ A,B (EIA) Negative for flu a/b (NEGATIVE) 07/12/18 20:10 Attending/Attestation - Attestation I have personally seen and examined this patient.: Yes I have fully participated in the care of the patient.: Yes I have reviewed all pertinent clinical information, including history, physical exam and plan: Yes Notes (Text): 07/14/18 57 year old male with past medical history of hypertension, CAD s/p stent, and alcohol abuse who presented with chest pain, left foot foot (after stepping on glass) and alcohol intoxication. His initial troponins were negative however trended up to 0.14. Repeat troponin this morning has come down and patient denies any chest pain. He is on aspirin, metoprolol and statin. He was seen by cardiology who offered cardiac cath which patient refused. Cardiology recommended outpatient stress test. Echocardiogram was reviewed. He was on ativan mervat/prn for withdrawal symptoms with improved. He was counselled on alcohol cessation. Xray showed small punctate items in lateral aspect on left foot. He was seen by podiatry who did some debriding and repeat xray was negative. Patient is discharged home to follow up with pmd. Follow up with cardiology for outpatient stress test. Counselled on alcohol cessation. Sweta Flores MD Hospitalist.
== END 2018-07-14 18:46 | disposition home or self-care (01) | DRG 775 ==
LOC: ED 18:53 → ERH 21:34 → 2RNO 07-13 12:23 → OBSVTOIN 07-13 18:44
PROVIDERS: ADMIT Internal Medicine; ATTEND Internal Medicine
PROC: 3E0234Z Introduction of Serum, Toxoid and Vaccine into Muscle, Percutaneous Approach (ICD-10-PCS; 2018-07-12)
PROC: 0HDNXZZ Extraction of Left Foot Skin, External Approach (ICD-10-PCS; principal; 2018-07-14)
DX: F10.239 Alcohol dependence with withdrawal, unspecified (principal); I48.0 Paroxysmal atrial fibrillation; I10 Essential (primary) hypertension; J44.9 Chronic obstructive pulmonary disease, unspecified; I25.10 Atherosclerotic heart disease of native coronary artery without angina pectoris; F10.229 Alcohol dependence with intoxication, unspecified; R07.89 Other chest pain; L85.9 Epidermal thickening, unspecified; F32.9 Major depressive disorder, single episode, unspecified; F41.0 Panic disorder [episodic paroxysmal anxiety]; F17.210 Nicotine dependence, cigarettes, uncomplicated; Y90.8 Blood alcohol level of 240 mg/100 ml or more; W25.XXXA Contact with sharp glass, initial encounter; Z23 Encounter for immunization; Z95.5 Presence of coronary angioplasty implant and graft; Z95.0 Presence of cardiac pacemaker

== ENCOUNTER 2018-07-15 10:47 | Emergency (ER) | payer MEDICAID, OTHER ==
[2018-07-15 11:08] VITALS: BMI 26.3
[2018-07-15] MEDS ORDERED: Multivitamin (MVI) 10 ML, Thiamine 100 MG, Folic Acid 1 MG in Dextrose 5% In Water 1,00... IV ONE (11:11)
[2018-07-15 11:27] LABS: PH,URINE 6.5 (4.7-8.0); URINE APPEARANCE CLEAR (CLEAR); URINE BILIRUBIN NEGATIVE (NEGATIVE); URINE BLOOD NEGATIVE (NEGATIVE); URINE COLOR YELLOW (YELLOW); URINE GLUCOSE (UA) NEGATIVE (NEGATIVE); URINE LEUKOCYTE ESTERASE NEGATIVE Leu/uL (NEGATIVE); URINE PROTEIN NEGATIVE mg/dL (<30 mg/dL); URINE UROBILINOGEN 0.2 E.U./dL (<1 E.U./dL)
--- NOTE | 2018-07-15 11:27 | ED PDOC ---
Arrival/HPI - General Chief Complaint: Substance Abuse Time Seen by Provider: 07/15/18 11:02 Historian: Patient - History of Present Illness Narrative History of Present Illness (Text): 07/15/18 11:33 57 y/o M w/ h/o alcohol abuse presenting to the Emergency Room with complaint of dizziness. The patient states he had been ingesting multiple shots of [place] with his last drink several hours ago. He reports feeling a generalized headache with dizziness causing him to walk into the ED for further ambulation. He denies falls, LOC, or head injury. Of note, the patient was recently discharged from the ED for similar complaint. A more complete HPI was unable to be obtained due to the patient's clinical condition Time/Duration: Prior to Arrival Symptom Onset: Sudden Symptom Course: Unchanged Activities at Onset: Rest Context: Home Past Medical History - Provider Review Nursing Documentation Reviewed: Yes - Travel History Have you recently traveled outside [place] w/in the past 3 mons?: No - Infectious Disease Hx of Infectious Diseases: None - Tetanus Immunization Tetanus Immunization: Unknown - Cardiac Hx Cardiac Disorders: Yes (a fib, palpitations, cad) Hx Cardiac Arrhythmia: Yes Hx Congestive Heart Failure: Yes (Paroxymal Afib) Hx Hypertension: Yes Hx Pacemaker: Yes Other/Comment: paroxymal afib, irregular heartbeat - Pulmonary Hx Respiratory Disorders: Yes Hx Asthma: Yes Hx Bronchitis: Yes Hx Chronic Obstructive Pulmonary Disease (COPD): Yes - Neurological Hx Neurological Disorder: Yes (loc) Hx Dizziness: Yes Other/Comment: hand tremors, syncope, weakness, numbness no feeling one half r hand 3rd finger all of fingers 4 and 5 - HEENT Hx HEENT Disorder: Yes (eyeglasses) - Renal Hx Renal Disorder: No - Endocrine/Metabolic Hx Endocrine Disorders: No - Hematological/Oncological Hx Blood Disorders: Yes Other/Comment: hyponatremia - Integumentary Hx Dermatological Disorder: Yes Other/Comment: left chest scar pt cut himself "in [place]", tatoo top of r ft, b/l dry toenails, dry skin to heels and bottom both feet, small 0.1cm wound outer left ft "stepped on glass" c/o pain when walking, indentation r hand between thumb and forefinger about 1 yr cause unknown, c/o no feeling numbness fingers 3 one half, 4 5 right hand - Musculoskeletal/Rheumatological Hx Falls: Yes - Gastrointestinal Hx Gastrointestinal Disorders: Yes (gi bleed) - Genitourinary/Gynecological Hx Genitourinary Disorders: No - Psychiatric Hx Psychophysiologic Disorder: Yes (delirium) Hx Anxiety: Yes Hx Depression: Yes Hx Panic Disorder: Yes Hx Substance Use: No Other/Comment: ETOH ABUSE, pt denying daily drinking pt stated "I stop for few months then start drinking again, then stop." pt stated, admits to drinking 2 shots [place] yesterday 07/12/18, denies drinking beer daily 12-14 cans a day, multiple admissions alcohol related, quit smoking 5 wks ago uses e cigarette - Past Surgical History Past Surgical History: No Previous - Surgical History Hx Cardiac Catheterization: Yes (x1 2011) Hx Coronary Stent: Yes Other/Comment: forehead laceration repair 07/16/2012, cardiac caterization and stent - Anesthesia Hx Anesthesia: Yes Hx Anesthesia Reactions: No Hx Malignant Hyperthermia: No - Suicidal Assessment Feels Threatened In Home Enviroment: No Family/Social History - Physician Review Nursing Documentation Reviewed: Yes Family/Social History: Unknown Family HX Smoking Status: Former Smoker Hx Alcohol Use: Yes (whiskey/beer intermittent use) Frequency of alcohol use: Few days per week Amount per day: 5 Hx Substance Use: No Hx Substance Use Treatment: No Allergies/Home Meds Allergies/Adverse Reactions: Allergies No Known Allergies Allergy (Verified 04/06/18 19:54) Review of Systems - Review of Systems Systems not reviewed;Unavailable: Intoxicated Physical Exam - Physical Exam Physical Exam Limitations: Intoxication Vital Signs Reviewed: Yes Vital Signs Temp Pulse Resp BP Pulse Ox 07/15/18 11:02 97.8 F 92 H 19 151/88 H 97 Temperature: Afebrile Blood Pressure: Hypertensive Pulse: Regular Respiratory Rate: Tachypneic Appearance: Positive for: Well-Appearing, Non-Toxic, Comfortable Mental Status: Positive for: other (Intoxicated) - Systems Exam Head: Present: Atraumatic, Normocephalic Pupils: Present: PERRL Extroacular Muscles: Present: EOMI Conjunctiva: Present: Injected Mouth: Present: Moist Mucous Membranes Respiratory/Chest: Present: Clear to Auscultation, Good Air Exchange. No: Respiratory Distress Cardiovascular: Present: Regular Rate and Rhythm, Normal S1, S2. No: Murmurs Abdomen: Present: Tenderness, Normal Bowel Sounds Skin: Present: Warm, Dry, Normal Color Medical Decision Making ED Course and Treatment: 07/15/18 11:51 Impression 57 M w/ h/o alcohol abuse presenting to the Emergency Room for alcohol abuse Plan --Serum alcohol level --UDS --Urinalysis --Banana bag --Reasess & disposition Progress Notes 07/15/18 11:53 Alcohol level noted to be 207. Patient will reach clinical sobriety at 5:53pm. 07/15/18 16:23 Patient awakened and able to ambulate without assistance - Lab Interpretations Lab Results: Lab Results 07/15/18 11:10: Urine Opiates Screen Negative, Urine Methadone Screen Negative, Ur Barbiturates Screen Negative, Ur Phencyclidine Scrn Negative, Ur Amphetamines Screen Negative, U Benzodiazepines Scrn Positive H, U Oth Cocaine Metabols Negative, U Cannabinoids Screen Negative 07/15/18 11:10: Urine Color Yellow, Urine Appearance Clear, Urine pH 6.5, Ur Specific [place] <= 1.005, Urine Protein Negative, Urine Glucose (UA) Negative, Urine Ketones Negative, Urine Blood Negative, Urine Nitrate Negative, Urine Bilirubin Negative, Urine Urobilinogen 0.2, Ur Leukocyte Esterase Negative 07/15/18 11:10: Alcohol, Quantitative 207 H I have reviewed the lab results: Yes - Medication Orders Current Medication Orders: Multivitamins/Vitamin C 10 ml/Thiamine HCl 100 mg/ Folic Acid 1 mg/ Dextrose 1,011.2 mls @ 1,000 mls/hr IV .Q1H1M ONE Stop: 07/15/18 12:11 Disposition/Present on Arrival - Present on Arrival Any Indicators Present on Arrival: No History of DVT/PE: No History of Uncontrolled Diabetes: No Urinary Catheter: No History of Decub. Ulcer: No History Surgical Site Infection Following: None - Disposition Have Diagnosis and Disposition been Completed?: Yes Diagnosis: Alcohol abuse Disposition: HOME/ ROUTINE Disposition Time: 16:22 Patient Plan: Discharge Condition: IMPROVED Discharge Instructions (ExitCare): Alcohol Abuse and Alcoholism (DC) Print Language: SOUTH AFRICAN Additional Instructions: Please follow up with your physician in 3-5 days Please try to cut down on your alcohol intake Referrals: Leigh Hester MD [Primary Care Provider] - Follow up with primary Forms: [employer] ([place]i)
[2018-07-15 11:51] LABS: BARBITURATES, UR NEGATIVE (NEGATIVE); BENZODIAZEPINES, UR POSITIVE (NEGATIVE); OPIATES, UR NEGATIVE (NEGATIVE); PHENCYCLIDINE, UR NEGATIVE (NEGATIVE)
[2018-07-15 12:04] VITALS: RESP 16
[2018-07-15 16:26] VITALS: BP 138/92; PULSE 82; TEMP 98; O2SAT 97
--- NOTE | 2018-07-15 17:37 | CARD ---
APPROVED REPORT Date of service: 07/15/2018 EKG Measurement Heart [id number] <Conclusion> Sinus rhythm with 1st degree AV block Otherwise normal ECG
== END 2018-07-15 16:31 | disposition home or self-care (01) ==
LOC: ED 10:47
DX: F10.10 Alcohol abuse, uncomplicated (principal); I25.10 Atherosclerotic heart disease of native coronary artery without angina pectoris; I11.0 Hypertensive heart disease with heart failure; I48.0 Paroxysmal atrial fibrillation; I50.9 Heart failure, unspecified; Z95.5 Presence of coronary angioplasty implant and graft; Z95.0 Presence of cardiac pacemaker; Z87.891 Personal history of nicotine dependence
CPT/HCPCS: 81003; 82948; 93005; 96360; 99284; G0480; J3411; J7070

== ENCOUNTER 2018-07-27 00:41 | Emergency (ER) | payer OTHER ==
[2018-07-27 00:43] VITALS: BMI 26.6
--- NOTE | 2018-07-27 00:59 | ED PDOC ---
Arrival/HPI - General Chief Complaint: Dental Pain Time Seen by Provider: 07/27/18 00:49 Historian: Patient - History of Present Illness Narrative History of Present Illness (Text): 07/27/18 01:00 57 yo M w/ pmh of HTN, CAD s/p stents (2012), palpitations, alcohol abuse, and depression, presents to the emergency department complaining of toothache and swelling to the L cheek. Otherwise the patient denies any headache, cough, f ever, chills, nausea, vomiting, throat swelling, neck pain. Patient has no other complaints. Past Medical History - Infectious Disease Hx of Infectious Diseases: None - Tetanus Immunization Tetanus Immunization: Unknown - Cardiac Hx Cardiac Disorders: Yes (a fib, palpitations, cad) Hx Cardiac Arrhythmia: Yes Hx Congestive Heart Failure: Yes (Paroxymal Afib) Hx Hypertension: Yes Hx Pacemaker: Yes Other/Comment: paroxymal afib, irregular heartbeat - Pulmonary Hx Respiratory Disorders: Yes Hx Asthma: Yes Hx Bronchitis: Yes Hx Chronic Obstructive Pulmonary Disease (COPD): Yes - Neurological Hx Neurological Disorder: Yes (loc) Hx Dizziness: Yes Other/Comment: hand tremors, syncope, weakness, numbness no feeling one half r hand 3rd finger all of fingers 4 and 5 - HEENT Hx HEENT Disorder: Yes (eyeglasses) - Renal Hx Renal Disorder: No - Endocrine/Metabolic Hx Endocrine Disorders: No - Hematological/Oncological Hx Blood Disorders: Yes Other/Comment: hyponatremia - Integumentary Hx Dermatological Disorder: Yes Other/Comment: left chest scar pt cut himself "in [place]", tatoo top of r ft, b/l dry toenails, dry skin to heels and bottom both feet, small 0.1cm wound outer left ft "stepped on glass" c/o pain when walking, indentation r hand between thumb and forefinger about 1 yr cause unknown, c/o no feeling numbness fingers 3 one half, 4 5 right hand - Musculoskeletal/Rheumatological Hx Falls: Yes - Gastrointestinal Hx Gastrointestinal Disorders: Yes (gi bleed) - Genitourinary/Gynecological Hx Genitourinary Disorders: No - Psychiatric Hx Psychophysiologic Disorder: Yes (delirium) Hx Anxiety: Yes Hx Depression: Yes Hx Panic Disorder: Yes Hx Substance Use: No Other/Comment: ETOH ABUSE, pt denying daily drinking pt stated "I stop for few months then start drinking again, then stop." pt stated, admits to drinking 2 shots [place] yesterday 07/12/18, denies drinking beer daily 12-14 cans a day, multiple admissions alcohol related, quit smoking 5 wks ago uses e cigarette - Past Surgical History Past Surgical History: No Previous - Surgical History Hx Cardiac Catheterization: Yes (x1 2012) Hx Coronary Stent: Yes Other/Comment: forehead laceration repair 07/16/2012, cardiac caterization and stent - Anesthesia Hx Anesthesia: Yes Hx Anesthesia Reactions: No Hx Malignant Hyperthermia: No - Suicidal Assessment Feels Threatened In Home Enviroment: No Family/Social History Family/Social History: No Known Family HX Smoking Status: Former Smoker Hx Alcohol Use: Yes (whiskey/beer intermittent use) Amount per day: 5 Hx Substance Use: No Hx Substance Use Treatment: No Allergies/Home Meds Allergies/Adverse Reactions: Allergies No Known Allergies Allergy (Verified 04/06/18 19:54) Review of Systems - Review of Systems Constitutional: absent: Fatigue, Fevers ENT: Other (+dental pain). absent: Sore Throat, Rhinorrhea, Sinus Congestion Respiratory: absent: SOB, Cough Cardiovascular: absent: Chest Pain Skin: absent: Rash, Skin Lesions Neurological: absent: Headache, Dizziness Physical Exam Temperature: Afebrile Blood Pressure: Normal Pulse: Regular Respiratory Rate: Normal Appearance: Positive for: Well-Appearing, Non-Toxic, Comfortable Pain Distress: Mild Mental Status: Positive for: Alert and Oriented X 3 - Systems Exam Head: Present: Atraumatic, Normocephalic Pupils: Present: PERRL Extroacular Muscles: Present: EOMI Conjunctiva: Present: Normal Mouth: Present: Moist Mucous Membranes, Other (+door dentition with several missing teeth, no gingival swelling, +mild edema and erythema to the L cheek) Neck: Present: Normal Range of Motion. No: Meningeal Signs, Lymphadenopathy Neurological: Present: GCS=15, CN II-XII Intact, Speech Normal Skin: Present: Warm, Dry, Normal Color. No: Rashes Psychiatric: Present: Alert, Oriented x 3, Normal Insight, Normal Concentration Medical Decision Making ED Course and Treatment: 07/27/18 00:57 Patient medicated with amoxicillin po and tylenol po. Advised to follow up with a dentist in 1-2 days without fail. Advised to take medication as prescribed. Return to the emergency room at any time for any new or worsening symptoms. - PA / GLOST TILE SHADER / Resident Statement MD/DO has reviewed & agrees with the documentation as recorded. Disposition/Present on Arrival - Present on Arrival Any Indicators Present on Arrival: No History of DVT/PE: No History of Uncontrolled Diabetes: No Urinary Catheter: No History of Decub. Ulcer: No History Surgical Site Infection Following: None - Disposition Have Diagnosis and Disposition been Completed?: Yes Diagnosis: Toothache Disposition: HOME/ ROUTINE Disposition Time: 01:00 Patient Plan: Discharge Condition: STABLE Discharge Instructions (ExitCare): Dental Pain Prescriptions: Acetaminophen [Tylenol] 975 mg PO Q6H PRN #20 capsule PRN Reason: Pain, Moderate (4-7) Amoxicillin 500 mg PO TID #30 tablet Referrals: [facility] [Outside] - Follow up with primary Forms: [facility] (Kazakh)
[2018-07-27 01:12] VITALS: BP 114/73; PULSE 80; RESP 18; TEMP 97.6; O2SAT 98
== END 2018-07-27 01:35 | disposition home or self-care (01) ==
LOC: ED 00:41
DX: K08.89 Other specified disorders of teeth and supporting structures (principal); I25.10 Atherosclerotic heart disease of native coronary artery without angina pectoris; I10 Essential (primary) hypertension; I48.0 Paroxysmal atrial fibrillation; J44.9 Chronic obstructive pulmonary disease, unspecified; Z87.891 Personal history of nicotine dependence

== ENCOUNTER 2018-07-30 13:05 | Inpatient (IN) | payer MEDICAID, OTHER ==
--- NOTE | 2018-07-30 14:01 | ED PDOC ---
Arrival/HPI - General Chief Complaint: Alcohol Ingestion Time Seen by Provider: 07/30/18 13:06 - History of Present Illness Narrative History of Present Illness (Text): 07/30/18 14:00 A 57 year old male, whose past medical history includes EtOH abuse, brought in by ambulance to the emergency department for intoxication. Limited HPI/ROS due to intoxication. Patient provides no physical/symptomatic complaints. Past Medical History - Provider Review Nursing Documentation Reviewed: Yes - Infectious Disease Hx of Infectious Diseases: None - Tetanus Immunization Tetanus Immunization: Unknown - Cardiac Hx Cardiac Disorders: Yes (a fib, palpitations, cad) Hx Cardiac Arrhythmia: Yes Hx Congestive Heart Failure: Yes (Paroxymal Afib) Hx Hypertension: Yes Hx Pacemaker: Yes Other/Comment: paroxymal afib, irregular heartbeat - Pulmonary Hx Respiratory Disorders: Yes Hx Asthma: Yes Hx Bronchitis: Yes Hx Chronic Obstructive Pulmonary Disease (COPD): Yes - Neurological Hx Neurological Disorder: Yes (loc) Hx Dizziness: Yes - HEENT Hx HEENT Disorder: Yes (eyeglasses) - Renal Hx Renal Disorder: No - Endocrine/Metabolic Hx Endocrine Disorders: No - Hematological/Oncological Hx Blood Disorders: Yes Other/Comment: hyponatremia - Integumentary Hx Dermatological Disorder: Yes - Musculoskeletal/Rheumatological Hx Falls: Yes - Gastrointestinal Hx Gastrointestinal Disorders: Yes (gi bleed) - Genitourinary/Gynecological Hx Genitourinary Disorders: No - Psychiatric Hx Psychophysiologic Disorder: Yes Hx Anxiety: Yes Hx Depression: Yes Hx Panic Disorder: Yes Hx Substance Use: No - Past Surgical History Past Surgical History: No Previous - Surgical History Hx Cardiac Catheterization: Yes (x1 2011) Hx Coronary Stent: Yes - Anesthesia Hx Anesthesia: Yes Hx Anesthesia Reactions: No Hx Malignant Hyperthermia: No - Suicidal Assessment Feels Threatened In Home Enviroment: No Family/Social History - Physician Review Nursing Documentation Reviewed: Yes Family/Social History: No Known Family HX Smoking Status: Former Smoker Hx Alcohol Use: Yes (whiskey/beer intermittent use) Amount per day: 5 Hx Substance Use: No Hx Substance Use Treatment: No Allergies/Home Meds Allergies/Adverse Reactions: Allergies No Known Allergies Allergy (Verified 04/06/18 19:54) Review of Systems - Review of Systems Systems not reviewed;Unavailable: Intoxicated Physical Exam - Physical Exam Narrative Physical Exam (Text): Gen: VS reviewed, alert, well developed, well nourished, nontoxic, mild distress,unkempt Eye: EOMI, PERRL. CV: regular rate, regular rhythm, no rubs, no murmur, no gallops, S1, S2, pulses equal and strong. Pulm: no distress, clear to auscultation, no wheeze, no rhonchi, breath sounds equal, no rales. Abd: soft, nontender, no guarding, no rebound, no rigidity, normal bowel sounds. Ext: no edema. Skin: good color, no rash, no cyanosis. Psych: limited due to intoxication. Neuro: limited due to intoxication. 07/30/18 19:0 patient was seen for alcohol intoxication, case endorsed to overnight attending. observe to clinical sobriety. Vital Signs Temp Pulse Resp BP Pulse Ox 07/30/18 13:38 98.1 F 88 17 109/72 93 L 07/30/18 13:09 97.8 F 92 H 18 109/72 - Scribe Statement The provider has reviewed the documentation as recorded by the Frankie Holman Provider Scribe Attestation: All medical record entries made by the Scribe were at my direction and personally dictated by me. I have reviewed the chart and agree that the record accurately reflects my personal performance of the history, physical exam, medical decision making, and the department course for this patient. I have also personally directed, reviewed, and agree with the discharge instructions and disposition. Disposition/Present on Arrival - Present on Arrival Any Indicators Present on Arrival: No History of DVT/PE: No History of Uncontrolled Diabetes: No Urinary Catheter: No History of Decub. Ulcer: No History Surgical Site Infection Following: None - Disposition Have Diagnosis and Disposition been Completed?: Yes Diagnosis: Alcohol intoxication, Alcohol withdrawal Disposition: HOSPITALIZED Disposition Time: 07:34 Condition: FAIR
--- NOTE | 2018-07-30 21:47 | ED PDOC ---
Physical Exam Vital Signs Temp Pulse Resp BP Pulse Ox 07/30/18 19:00 98 F 75 19 119/53 L 99 07/30/18 17:20 98 F 86 19 110/59 L 99 07/30/18 15:16 97.6 F 74 18 110/63 97 07/30/18 13:38 98.1 F 88 17 109/72 93 L 07/30/18 13:09 97.8 F 92 H 18 109/72 Medical Decision Making ED Course and Treatment: 07/30/18 19:00 Case endorsed to me by Dr. Sadler, pending sobriety, re-evaluation, and disposition. 07/31/18 03:40 Pt tremulous, showing signs of alcohol withdrawal. EKG, CXR, labs, IV fluids, and Librium ordered. 07/31/18 03:54 Reviewed EKG, NSR at [address]-segment elevations or depressions, no T-wave inversions, normal intervals. 07/31/18 05:01 Chest X-ray reviewed, shows no acute processes. 07/31/18 05:03 Case discussed with durable medical equipment repairer front end mechanic, who is aware and agrees with plan. House physician paged. 07/31/18 05:[address] Atkinson who is aware and agrees with plan. Accepts pt in to hospitalist service. Pt will be admitted to remote telemetry for alcohol withdrawal syndrome. Disposition/Present on Arrival - Present on Arrival Any Indicators Present on Arrival: No History of DVT/PE: No History of Uncontrolled Diabetes: No Urinary Catheter: No History of Decub. Ulcer: No History Surgical Site Infection Following: None - Disposition Have Diagnosis and Disposition been Completed?: Yes Diagnosis: Alcohol intoxication, Alcohol withdrawal Disposition: HOSPITALIZED Disposition Time: 05:10 Condition: FAIR
[2018-07-31] MEDS ORDERED: Multivitamin (MVI) 10 ML, Thiamine 100 MG, Folic Acid 1 MG in Sodium Chloride 0.9% 1,00... IV ONE (03:40)
[2018-07-31 04:53] LABS: TROPONIN I < 0.01 ng/mL
[2018-07-31 05:01] LABS: ALB/GLOB RATIO 1.2 (1.1-1.8); ALBUMIN 4.6 g/dL (3.0-4.8); ALT/SGPT 22 U/L (7-56); AST/SGOT 54 U/L (17-59); BASO # 0.08 K/mm3 (0.0-2.0); BASO % 1.4 % (0.0-3.0); BLOOD UREA NITROGEN 15 mg/dL (7-21); CALCIUM 8.6 mg/dL (8.4-10.5); EOS % 0.5 % (1.5-5.0); GFR NON-AFRICAN AMERICAN > 60; HEMOGLOBIN 13.2 g/dL (14.0-18.0); LYMPH # 1.4 (1.2-3.4); LYMPH % 23.9 % (22.0-35.0); MEAN CORPUSCULAR HEMOGLOBIN 31.8 pg (25.0-35.0); MEAN CORPUSCULAR HGB CONC 34.6 g/dl (31.0-37.0); MEAN PLATELET VOLUME 9.7 fl (7.0-11.0); MONO # 0.8 (0.1-0.6); MONO % 13.7 % (1.0-6.0); RBC 4.15 10^6/uL (3.5-6.1); RED CELL DISTRIBUTION WIDTH 14.3 % (11.5-14.5); WHITE BLOOD COUNT 5.8 10^3/uL (4.5-11.0)
[2018-07-31 05:33] LABS: INR 1.01; PARTIAL THROMBOPLASTIN TIME 22.8 Seconds (26.9-38.3); PROTHROMBIN TIME 11.2 SECONDS (9.4-12.5)
--- NOTE | 2018-07-31 05:39 | CP.PCM.HP ---
<Darvin Alonso - Last Filed: 07/31/18 06:30> History of Present Illness - History of Present Illness History of Present Illness: Medicine History and Physical for Hospitalist Service, Dr. Demetrio Alonso, DO PGY-1 This is a 57 y o male, well known to our service, with PMhx HTN, panic attacks, CAD s/p stent (2012), and EtOH abuse, who was BiBEMS for intoxication. Pt states that he has not been drinking for the past 2 weeks and states he drank about 3 beers yesterday morning at around 11 am. States he is currently having tremors in his upper exts b/l. Admits to mid-chest tightness that only started a few minutes ago, denies any inciting factors. Admits to associated shortness of breath. States he feels anxious currently. Admits to diaphoresis. Denies n/v/d/c. Admits to associated frontal headache. Denies fever, chills, abd pain, urinary complaints, or other symptoms. PMhx: HTN, panic attacks, CAD s/p stent (2012), and EtOH abuse PSH: cardiac stent placement (2012) SHx: drinks approximately 15 beers per day, started drinking at age of 7. 4-7 cigarettes for 50 years, denies illicit drug use. FHx: denies Allergies: NKDA PMD: Dr. Victor Present on Admission - Present on Admission Any Indicators Present on Admission: No History of DVT/PE: No History of Uncontrolled Diabetes: No Urinary Catheter: No Decubitus Ulcer Present: No Review of Systems - Constitutional Constitutional: Excessive Sweating, Headache. absent: Chills, Fever - Cardiovascular Cardiovascular: Chest Pain, Dyspnea. absent: Dyspnea on Exertion - Respiratory Respiratory: absent: Cough, Wheezing - Gastrointestinal Gastrointestinal: absent: Abdominal Pain, Constipation, Diarrhea, Nausea, Vomiting - Neurological Neurological: Tremor Past Patient History - Infectious Disease Hx of Infectious Diseases: None - Tetanus Immunizations Tetanus Immunization: Unknown - Past Social History Smoking Status: Former Smoker - CARDIAC Hx Cardiac Disorders: Yes (a fib, palpitations, cad) Hx Cardia Arrhythmia: Yes Hx Congestive Heart Failure: Yes (Paroxymal Afib) Hx Hypertension: Yes Hx Pacemaker: Yes Other/Comment: paroxymal afib, irregular heartbeat - PULMONARY Hx Respiratory Disorders: Yes Hx Asthma: Yes Hx Bronchitis: Yes Hx Chronic Obstructive Pulmonary Disease (COPD): Yes - NEUROLOGICAL Hx Neurological Disorder: Yes (loc) Hx Dizziness: Yes - HEENT Hx HEENT Problems: Yes (eyeglasses) - RENAL Hx Chronic Kidney Disease: No - ENDOCRINE/METABOLIC Hx Endocrine Disorders: No - HEMATOLOGICAL/ONCOLOGICAL Hx Blood Disorders: Yes Other/Comment: hyponatremia - INTEGUMENTARY Hx Dermatological Problems: Yes - MUSCULOSKELETAL/RHEUMATOLOGICAL Hx Falls: Yes - GASTROINTESTINAL Hx Gastrointestinal Disorders: Yes (gi bleed) - GENITOURINARY/GYNECOLOGICAL Hx Genitourinary Disorders: No - PSYCHIATRIC Hx Psychophysiologic Disorder: Yes Hx Anxiety: Yes Hx Depression: Yes Hx Panic Symptoms: Yes Hx Substance Use: No - SURGICAL HISTORY Hx Cardiac Catheterization: Yes (x1 2012) Hx Coronary Stent: Yes - ANESTHESIA Hx Anesthesia: Yes Hx Anesthesia Reactions: No Hx Malignant Hyperthermia: No Meds Allergies/Adverse Reactions: Allergies Allergy/AdvReac Type Severity Reaction Status Date / Time No Known Allergies Allergy Verified 04/06/18 19:54 Physical Exam - Constitutional Appears: Non-toxic, No Acute Distress - Head Exam Head Exam: ATRAUMATIC, NORMOCEPHALIC - Eye Exam Eye Exam: EOMI, Normal appearance, PERRL - ENT Exam ENT Exam: Mucous Membranes Moist - Respiratory Exam Respiratory Exam: Clear to Auscultation Bilateral, NORMAL BREATHING PATTERN. absent: Rales, Rhonchi, Wheezes - Cardiovascular Exam Cardiovascular Exam: REGULAR RHYTHM, +S1, +S2. absent: Gallop, Rubs, Systolic Murmur Additional comments: Chest pain reproducible on exam - GI/Abdominal Exam GI & Abdominal Exam: Normal Bowel Sounds, Soft. absent: Distended, Guarding, Tenderness - Extremities Exam Extremities exam: Positive for: full ROM, normal capillary refill, normal inspection, pedal pulses present. Negative for: calf tenderness, pedal edema - Neurological Exam Neurological exam: Alert, CN II-XII Intact, Oriented x3 Additional comments: Tremors of upper extremities noted on exam b/l - Skin Skin Exam: Dry, Intact, Normal Color, Warm Results - Vital Signs Recent Vital Signs: Last Vital Signs Temp 98.8 F 07/30/18 22:44 Pulse 98 H 07/31/18 04:45 Resp 19 07/31/18 04:45 BP 154/85 H 07/31/18 04:45 Pulse Ox 99 07/31/18 04:45 - Labs Result Diagrams: 07/31/18 04:10 07/31/18 04:10 Labs: Laboratory Results - last 24 hr 07/31/18 07/31/18 07/31/18 04:10 04:10 04:10 WBC 5.8 RBC 4.15 Hgb 13.2 L Hct 38.2 L MCV 92.0 D MCH 31.8 MCHC 34.6 RDW 14.3 Plt Count 262 MPV 9.7 Neut % (Auto) 60.5 Lymph % (Auto) 23.9 [place] % (Auto) 13.7 H Eos % (Auto) 0.5 L Baso % (Auto) 1.4 Lymph # (Auto) 1.4 [place] # (Auto) 0.8 H Eos # (Auto) 0.0 Baso # (Auto) 0.08 Absolute Neuts (auto) 3.50 Sodium 137 Potassium 4.3 Chloride 102 Carbon Dioxide 22 Anion Gap 17 BUN 15 Creatinine 0.8 Est GFR ( Amer) > 60 Est GFR (Non-Af Amer) > 60 Random Glucose 92 Calcium 8.6 Total Bilirubin 0.5 AST 54 ALT 22 Alkaline Phosphatase 104 Troponin I < 0.01 D Total Protein 8.3 Albumin 4.6 Globulin 3.7 Albumin/Globulin Ratio 1.2 Alcohol, Quantitative 94 H Assessment & Plan - Assessment and Plan (Free Text) Assessment: This is a 57 y o male, well known to our service, with PMhx HTN, panic attacks, CAD s/p stent (2012), and EtOH abuse, who was BiBEMS for intoxication. Admitted for management of EtOH withdrawal. Plan: EtOH Withdrawal Admit to tele EtOH level 92, UDS pending CIWA protocol Aspiration/seizure precautions Ativan 1 mg q4h mervat Ativan 1 mg q2h prn Zofran prn for nausea S/p banana bag MVT, thiamine, folate EtOH cessation counseling given Liquid diet Chest pain R/o ACS as etiology, however in setting of clinical picture may be 2/2 EtOH withdrawal EKG demonstrates NSR, no acute St-t wave changes Trop neg x1, repeat trops x2 pending Hx HTN C/w home med Lopressor bid Cont to trend bps while inpatient Hx CAD s/p stent; Hx paroxysmal A-fib C/w ASA daily Due to prior hx of GI bleed, pt rate controlled only with Lopressor, anticoagulation not indicated High risk of fall 2/2 EtOH abuse Hx HLD C/w home med Lipitor PO din Hx Tobacco Abuse Cessation counseling provided Nicotine patch offered Pt seen, examined with, and plan discussed with Dr. Atkinson, attending physician. Darvin Alonso DO PGY-1, Aboriginal Education Worker Coordinator Pager #[phone] <Beverly Atkinson - Last Filed: 07/31/18 06:48> Results - Vital Signs Recent Vital Signs: Last Vital Signs Temp 98.8 F 07/30/18 22:44 Pulse 93 H 07/31/18 06:18 Resp 19 07/31/18 06:18 BP 152/93 H 07/31/18 06:18 Pulse Ox 98 07/31/18 06:18 - Labs Result Diagrams: 07/31/18 04:10 07/31/18 04:10 Labs: Laboratory Results - last 24 hr 07/31/18 07/31/18 07/31/18 04:10 04:10 04:10 WBC 5.8 RBC 4.15 Hgb 13.2 L Hct 38.2 L MCV 92.0 D MCH 31.8 MCHC 34.6 RDW 14.3 Plt Count 262 MPV 9.7 Neut % (Auto) 60.5 Lymph % (Auto) 23.9 [place] % (Auto) 13.7 H Eos % (Auto) 0.5 L Baso % (Auto) 1.4 Lymph # (Auto) 1.4 [place] # (Auto) 0.8 H Eos # (Auto) 0.0 Baso # (Auto) 0.08 Absolute Neuts (auto) 3.50 PT 11.2 INR 1.01 APTT 22.8 L Sodium 137 Potassium 4.3 Chloride 102 Carbon Dioxide 22 Anion Gap 17 BUN 15 Creatinine 0.8 Est GFR ( Amer) > 60 Est GFR (Non-Af Amer) > 60 Random Glucose 92 Calcium 8.6 Total Bilirubin 0.5 AST 54 ALT 22 Alkaline Phosphatase 104 Troponin I < 0.01 D Total Protein 8.3 Albumin 4.6 Globulin 3.7 Albumin/Globulin Ratio 1.2 Alcohol, Quantitative 07/31/18 04:10 WBC RBC Hgb Hct MCV MCH MCHC RDW Plt Count MPV Neut % (Auto) Lymph % (Auto) [place] % (Auto) Eos % (Auto) Baso % (Auto) Lymph # (Auto) [place] # (Auto) Eos # (Auto) Baso # (Auto) Absolute Neuts (auto) PT INR APTT Sodium Potassium Chloride Carbon Dioxide Anion Gap BUN Creatinine Est GFR ( Amer) Est GFR (Non-Af Amer) Random Glucose Calcium Total Bilirubin AST ALT Alkaline Phosphatase Troponin I Total Protein Albumin Globulin Albumin/Globulin Ratio Alcohol, Quantitative 94 H Attending/Attestation - Attestation I have personally seen and examined this patient.: Yes I have fully participated in the care of the patient.: Yes I have reviewed all pertinent clinical information: Yes Notes (Text): 07/31/18 06:47 Patient was seen when he was in bed # 1 in the ER with resident physicians. Medical record was reviewed. Agree with history, physical examination, assessment and plan.
[2018-07-31] MEDS: Multivitamin With Minerals Tab PO SCH (09:20)
[2018-07-31 10:04] LABS: BASO # 0.06 K/mm3 (0.0-2.0); BASO % 1.2 % (0.0-3.0); EOS % 0.6 % (1.5-5.0); HEMOGLOBIN 12.6 g/dL (14.0-18.0); LYMPH # 1.2 (1.2-3.4); LYMPH % 23.6 % (22.0-35.0); MEAN CELL VOLUME 92.9 fl (80.0-105.0); MEAN CORPUSCULAR HEMOGLOBIN 31.9 pg (25.0-35.0); MEAN CORPUSCULAR HGB CONC 34.3 g/dl (31.0-37.0); MEAN PLATELET VOLUME 9.8 fl (7.0-11.0); MONO # 0.7 (0.1-0.6); RBC 3.95 10^6/uL (3.5-6.1); RED CELL DISTRIBUTION WIDTH 14.3 % (11.5-14.5); WHITE BLOOD COUNT 5.1 10^3/uL (4.5-11.0)
[2018-07-31 10:50] VITALS: BMI 28.4
--- NOTE | 2018-07-31 11:12 | CARD ---
APPROVED REPORT Date of service: 07/31/2018 EKG Measurement Heart [id number] <Conclusion> Normal sinus rhythm Normal ECG
--- NOTE | 2018-07-31 13:02 | RAD ---
Date of service: 07/31/2018 HISTORY: alcohol withdrawal COMPARISON: Kate in chest 07/12/2018 FINDINGS: LUNGS: No active pulmonary disease. PLEURA: No significant pleural effusion identified, no pneumothorax apparent. CARDIOVASCULAR: No aortic atherosclerotic calcification present. Normal cardiac size. No pulmonary vascular congestion. OSSEOUS STRUCTURES: No significant abnormalities. VISUALIZED UPPER ABDOMEN: Normal. OTHER FINDINGS: None. IMPRESSION: No active disease.
[2018-08-01 07:23] LABS: BASO # 0.03 K/mm3 (0.0-2.0); BASO % 0.7 % (0.0-3.0); EOS # 0.1 (0.0-0.7); EOS % 2.3 % (1.5-5.0); HEMOGLOBIN 12.6 g/dL (14.0-18.0); LYMPH # 1.5 (1.2-3.4); LYMPH % 35.1 % (22.0-35.0); MEAN CELL VOLUME 93.2 fl (80.0-105.0); MEAN CORPUSCULAR HEMOGLOBIN 31.7 pg (25.0-35.0); MEAN CORPUSCULAR HGB CONC 34.1 g/dl (31.0-37.0); MEAN PLATELET VOLUME 9.8 fl (7.0-11.0); MONO # 0.6 (0.1-0.6); MONO % 13.8 % (1.0-6.0); RBC 3.97 10^6/uL (3.5-6.1); RED CELL DISTRIBUTION WIDTH 14.3 % (11.5-14.5); WHITE BLOOD COUNT 4.3 10^3/uL (4.5-11.0)
--- NOTE | 2018-08-01 07:25 | CP.PCM.PN ---
<Jemal Perdomo - Last Filed: 08/01/18 16:11> Subjective - Date & Time of Evaluation Date of Evaluation: 08/01/18 Time of Evaluation: 07:25 - Subjective Subjective: Jemal Perdomo DO, PGY-1 Hospitalist Progress Note for Dr. Shine Patient was seen and examined at bedside this AM. There were no acute events overnight. CIWA scores of 11 overnight. Patient does not appear agitated on exam and has no new complaints this AM. Objective - Vital Signs/Intake and Output Vital Signs (last 24 hours): Temp Pulse Resp BP Pulse Ox 98.0 F 78 20 147/87 99 08/01/18 06:00 08/01/18 06:00 08/01/18 06:00 08/01/18 06:00 08/01/18 06:00 Intake and Output: 08/01/18 08/01/18 06:59 18:59 Intake Total 420 Balance 420 - Medications Medications: Current Medications Aspirin (Ecotrin) 81 mg PO DAILY [facility] Last Admin: 07/31/18 09:20 Dose: 81 mg Atorvastatin Calcium (Lipitor) 20 mg PO DIN [facility] Last Admin: 07/31/18 16:37 Dose: 20 mg Folic Acid (Folic Acid) 1 mg PO DAILY [facility] Last Admin: 07/31/18 09:20 Dose: 1 mg Lorazepam (Ativan) 1 mg IVP Q2H PRN; Protocol PRN Reason: Anxiety Last Admin: 08/01/18 04:30 Dose: 1 mg Lorazepam (Ativan) 1 mg IVP Q4H [facility] Last Admin: 08/01/18 06:46 Dose: 1 mg Metoprolol Tartrate (Lopressor) 12.5 mg PO 0800,1800 [facility] Last Admin: 07/31/18 18:34 Dose: 12.5 mg Multivitamins/Minerals (Therapeutic-M Tab) 1 tab PO DAILY [facility] Last Admin: 07/31/18 09:20 Dose: 1 tab Nicotine (Nicoderm Cq) 1 patch TD DAILY [facility] Last Admin: 07/31/18 09:19 Dose: 1 patch Ondansetron HCl (Zofran Inj) 4 mg IVP Q6H PRN PRN Reason: Nausea/Vomiting Last Admin: 07/31/18 22:27 Dose: 4 mg Pantoprazole Sodium (Protonix Inj) 40 mg IVP DAILY [facility] Last Admin: 07/31/18 09:18 Dose: 40 mg Thiamine HCl (Vitamin B1 Tab) 100 mg PO DAILY [facility] Last Admin: 07/31/18 09:19 Dose: 100 mg - Labs Labs: 07/31/18 09:46 07/31/18 04:10 PT 11.2 SECONDS (9.4-12.5) 07/31/18 04:10 INR 1.01 07/31/18 04:10 APTT 22.8 Seconds (26.9-38.3) L 07/31/18 04:10 - Constitutional Appears: Non-toxic, No Acute Distress - Head Exam Head Exam: ATRAUMATIC, NORMOCEPHALIC - Eye Exam Eye Exam: EOMI, Normal appearance, PERRL - ENT Exam ENT Exam: Mucous Membranes Moist - Neck Exam Neck Exam: Full ROM, Normal Inspection - Respiratory Exam Respiratory Exam: Clear to Ausculation Bilateral, NORMAL BREATHING PATTERN. absent: Accessory Muscle Use, Rales, Rhonchi, Wheezes, Respiratory Distress - Cardiovascular Exam Cardiovascular Exam: REGULAR RHYTHM, RRR, +S1, +S2. absent: Gallop, Rubs, Murmur - GI/Abdominal Exam GI & Abdominal Exam: Soft, Normal Bowel Sounds. absent: Tenderness - Extremities Exam Extremities Exam: Normal Inspection. absent: Pedal Edema - Back Exam Back Exam: NORMAL INSPECTION - Neurological Exam Neurological Exam: Alert, Awake, Oriented x3 - Psychiatric Exam Psychiatric exam: Normal Affect, Normal Mood - Skin Skin Exam: Dry, Intact, Warm Assessment and Plan - Assessment and Plan (Free Text) Assessment: 57 yo M with PMH of HTN, panic attacks, CAD s/p stent (2012), and EtOH abuse (with DT) was brought in by EMS for acute EtOH intoxication and is admitted for treatment of EtOH withdrawal. Plan: EtOH Withdrawal EtOH level of 92 on admission Continue CIWA protocol, CIWA scores of 11 last night Aspiration/seizure precautions Continue ativan mervat and PRN Will also add librium 25 mg PO q6h Continue MVT, thiamine, folate Continue liquid diet Chest pain on admission Patient states it has improved now Was tender to palpation, suspect most likely 2/2 musculoskeletal strain Trop x 3 negative Continue to monitor Hx HTN Continue home meds Hx CAD s/p stent Continue daily ASA Hx HLD Continue lipitor Hx Tobacco Abuse Nicotine patch PRN Continue tobacco cessation counseling prior to discharge DVT/GI PPX: Lovenox/protonix Full Code Clear liquid diet Monitor on telemetry Patient seen, examined, and plan discussed with my attending Hermila CobbO. IM Resident PGY-1 Pager: [phone] <Swathi Shine - Last Filed: 08/01/18 16:40> Objective - Vital Signs/Intake and Output Vital Signs (last 24 hours): Temp Pulse Resp BP Pulse Ox 98 F 84 20 152/100 H 99 08/01/18 12:00 08/01/18 14:00 08/01/18 12:00 08/01/18 12:00 08/01/18 06:00 Intake and Output: 08/01/18 08/01/18 06:59 18:59 Intake Total 420 Balance 420 - Medications Medications: Current Medications Aspirin (Ecotrin) 81 mg PO DAILY [facility] Last Admin: 08/01/18 09:05 Dose: 81 mg Atorvastatin Calcium (Lipitor) 20 mg PO DIN [facility] Last Admin: 07/31/18 16:37 Dose: 20 mg Chlordiazepoxide (Librium) 25 mg PO Q6 [facility]; Protocol Last Admin: 08/01/18 11:11 Dose: 25 mg Enoxaparin Sodium (Lovenox) 40 mg SC DAILY [facility]; Protocol Folic Acid (Folic Acid) 1 mg PO DAILY [facility] Last Admin: 08/01/18 09:05 Dose: 1 mg Lorazepam (Ativan) 1 mg IVP Q4H PRN PRN Reason: Symptoms of alcohol withdrawl Last Admin: 08/01/18 13:22 Dose: 1 mg Metoprolol Tartrate (Lopressor) 12.5 mg PO 0800,1800 [facility] Last Admin: 08/01/18 09:09 Dose: 12.5 mg Multivitamins/Minerals (Therapeutic-M Tab) 1 tab PO DAILY [facility] Last Admin: 08/01/18 09:05 Dose: 1 tab Nicotine (Nicoderm Cq) 1 patch TD DAILY [facility] Last Admin: 08/01/18 09:15 Dose: 1 patch Ondansetron HCl (Zofran Inj) 4 mg IVP Q6H PRN PRN Reason: Nausea/Vomiting Last Admin: 07/31/18 22:27 Dose: 4 mg Pantoprazole Sodium (Protonix Ec Tab) 40 mg PO ACB [facility] Thiamine HCl (Vitamin B1 Tab) 100 mg PO DAILY [facility] Last Admin: 08/01/18 09:05 Dose: 100 mg - Labs Labs: 08/01/18 07:10 08/01/18 07:10 PT 11.2 SECONDS (9.4-12.5) 07/31/18 04:10 INR 1.01 07/31/18 04:10 APTT 22.8 Seconds (26.9-38.3) L 07/31/18 04:10 Attending/Attestation - Attestation I have personally seen and examined this patient.: Yes I have fully participated in the care of the patient.: Yes I have reviewed all pertinent clinical information, including history, physical exam and plan: Yes Notes (Text): 08/01/18 16:34 Patient was seen and examined with medical planner. 57 y o male, well known to our service, with PMH OF HTN, , CAD s/p stent (2012), alcohol abuse, and non compliance with medication was admitted for i alcohol intoxication, now in alcohol withdrawal on CIWA protocol. Patient has H/O DT, will continue monitoring. Patient is not having any chest pain.EKG was negative for ischemic changes. Serial troponins are normal. Prognosis is guarded due to non compliance and ongoing alcohol abuse. 08/01/18 16:39
[2018-08-01 07:42] LABS: ALB/GLOB RATIO 1.1 (1.1-1.8); ALBUMIN 4.1 g/dL (3.0-4.8); ALT/SGPT 19 U/L (7-56); AST/SGOT 59 U/L (17-59); BLOOD UREA NITROGEN 7 mg/dL (7-21); CALCIUM 8.9 mg/dL (8.4-10.5); GFR NON-AFRICAN AMERICAN > 60
[2018-08-01] MEDS: Multivitamin With Minerals Tab PO SCH (09:05)
[2018-08-01 11:52] LABS: BARBITURATES, UR NEGATIVE (NEGATIVE); BENZODIAZEPINES, UR POSITIVE (NEGATIVE); OPIATES, UR NEGATIVE (NEGATIVE); PHENCYCLIDINE, UR NEGATIVE (NEGATIVE)
[2018-08-01 11:54] LABS: URINE BILIRUBIN NEGATIVE (NEGATIVE); URINE BLOOD TRACE-INTACT (NEGATIVE); URINE GLUCOSE (UA) NEGATIVE (NEGATIVE); URINE LEUKOCYTE ESTERASE NEGATIVE Leu/uL (NEGATIVE); URINE PROTEIN NEGATIVE mg/dL (<30 mg/dL); URINE UROBILINOGEN 0.2 E.U./dL (<1 E.U./dL)
[2018-08-01 11:56] LABS: URINE APPEARANCE CLEAR (CLEAR); URINE COLOR YELLOW (YELLOW)
[2018-08-01 12:10] LABS: URINE BACTERIA FEW /hpf; URINE WBC 0 - 2 /hpf (0-6)
[2018-08-02] MEDS: Pantoprazole 40 mg EC Tab PO SCH (06:49)
--- NOTE | 2018-08-02 07:29 | CP.PCM.PN ---
<Jemal Perdomo - Last Filed: 08/02/18 14:31> Subjective - Date & Time of Evaluation Date of Evaluation: 08/02/18 Time of Evaluation: 07:29 - Subjective Subjective: Jemal Perdomo DO, PGY-1 Hospitalist Progress Note for Dr. Shine Patient was seen and examined at bedside this AM. He reports no new complaints this AM but is still feeling a little shaky and anxious. Otherwise he denies fever/chills, CP, SOB, nausea/vomiting/abdominal pain, or urinary complaints. Objective - Vital Signs/Intake and Output Vital Signs (last 24 hours): Temp Pulse Resp BP Pulse Ox 97.5 F L 74 20 155/109 H 99 08/02/18 06:00 08/02/18 06:00 08/02/18 06:00 08/02/18 06:00 08/02/18 06:00 Intake and Output: 08/02/18 08/02/18 06:59 18:59 Intake Total 5460 Output Total 5805 Balance -345 - Medications Medications: Current Medications Aspirin (Ecotrin) 81 mg PO DAILY [facility] Last Admin: 08/01/18 09:05 Dose: 81 mg Atorvastatin Calcium (Lipitor) 20 mg PO DIN [facility] Last Admin: 08/01/18 17:12 Dose: 20 mg Chlordiazepoxide (Librium) 25 mg PO Q6 [facility]; Protocol Last Admin: 08/02/18 06:49 Dose: 25 mg Enoxaparin Sodium (Lovenox) 40 mg SC DAILY [facility]; Protocol Folic Acid (Folic Acid) 1 mg PO DAILY [facility] Last Admin: 08/01/18 09:05 Dose: 1 mg Lorazepam (Ativan) 1 mg IVP Q4H PRN PRN Reason: Symptoms of alcohol withdrawl Last Admin: 08/02/18 00:25 Dose: 1 mg Metoprolol Tartrate (Lopressor) 12.5 mg PO 0800,1800 [facility] Last Admin: 08/01/18 17:12 Dose: 12.5 mg Multivitamins/Minerals (Therapeutic-M Tab) 1 tab PO DAILY [facility] Last Admin: 08/01/18 09:05 Dose: 1 tab Nicotine (Nicoderm Cq) 1 patch TD DAILY [facility] Last Admin: 08/01/18 09:15 Dose: 1 patch Ondansetron HCl (Zofran Inj) 4 mg IVP Q6H PRN PRN Reason: Nausea/Vomiting Last Admin: 07/31/18 22:27 Dose: 4 mg Pantoprazole Sodium (Protonix Ec Tab) 40 mg PO ACB [facility] Last Admin: 08/02/18 06:49 Dose: 40 mg Thiamine HCl (Vitamin B1 Tab) 100 mg PO DAILY [facility] Last Admin: 08/01/18 09:05 Dose: 100 mg - Labs Labs: 08/01/18 07:10 08/01/18 07:10 PT 11.2 SECONDS (9.4-12.5) 07/31/18 04:10 INR 1.01 07/31/18 04:10 APTT 22.8 Seconds (26.9-38.3) L 07/31/18 04:10 - Constitutional Appears: Non-toxic, No Acute Distress - Head Exam Head Exam: ATRAUMATIC, NORMOCEPHALIC - Eye Exam Eye Exam: EOMI, Normal appearance, PERRL Pupil Exam: PERRL - ENT Exam ENT Exam: Mucous Membranes Moist - Neck Exam Neck Exam: Full ROM, Normal Inspection - Respiratory Exam Respiratory Exam: Clear to Ausculation Bilateral, NORMAL BREATHING PATTERN. absent: Rales, Rhonchi, Wheezes - Cardiovascular Exam Cardiovascular Exam: REGULAR RHYTHM, RRR, +S1, +S2. absent: Gallop, Rubs, Murmur - GI/Abdominal Exam GI & Abdominal Exam: Soft, Normal Bowel Sounds. absent: Tenderness - Extremities Exam Extremities Exam: Normal Inspection. absent: Pedal Edema - Back Exam Back Exam: NORMAL INSPECTION - Neurological Exam Neurological Exam: Alert, Awake, Oriented x3 Additional comments: mild tremor visible in b/l hands, but awake, alert, sitting on side of the bed, no difficulty conversing, not agitated - Psychiatric Exam Psychiatric exam: Anxious - Skin Skin Exam: Dry, Intact, Warm Assessment and Plan - Assessment and Plan (Free Text) Assessment: 57 yo M with PMH of HTN, panic attacks, CAD s/p stent (2012), and EtOH abuse (with DT) was brought in by EMS for acute EtOH intoxication and is admitted for treatment of EtOH withdrawal. Plan: EtOH Withdrawal EtOH level of 92 on admission Continue CIWA protocol, CIWA score of 5 last night Continue Aspiration/seizure precautions Decrease librium 25 mg to q12h Continue PRN ativan Continue MVT, thiamine, folate Advance to regular diet Chest pain on admission Resolved since admission Trop x 3 negative Continue to monitor Hx HTN Continue home meds Hx CAD s/p stent Continue daily ASA Hx HLD Continue lipitor Hx Tobacco Abuse Nicotine patch PRN Continue tobacco cessation counseling prior to discharge DVT/GI PPX: Lovenox/protonix Full Code HHD Monitor on telemetry Patient seen, examined, and plan discussed with my attending Dr. Fátima Perdomo, DChanO. IM Resident PGY-1 Pager: [phone] <Swathi Shine - Last Filed: 08/03/18 14:37> Objective - Vital Signs/Intake and Output Vital Signs (last 24 hours): Temp Pulse Resp BP Pulse Ox 98 F 72 20 144/89 98 08/03/18 12:00 08/03/18 12:00 08/03/18 12:00 08/03/18 12:00 08/03/18 06:00 Intake and Output: 08/03/18 08/03/18 06:59 18:59 Intake Total 480 Balance 480 - Labs Labs: 08/03/18 06:45 08/03/18 06:45 PT 11.2 SECONDS (9.4-12.5) 07/31/18 04:10 INR 1.01 07/31/18 04:10 APTT 22.8 Seconds (26.9-38.3) L 07/31/18 04:10 Attending/Attestation - Attestation I have personally seen and examined this patient.: Yes I have fully participated in the care of the patient.: Yes I have reviewed all pertinent clinical information, including history, physical exam and plan: Yes Notes (Text): 08/03/18 14:37 Medical record note made by the resident after discussion with my direction and input after the patient was personally seen and examined by me. I have reviewed the chart and agree that the record accurately reflects by personal performance of the history, physical exam, data review, and medical decision-making, in the course for the patient. I have also personally directed the plan of care.
[2018-08-02 07:34] LABS: BASO # 0.05 K/mm3 (0.0-2.0); EOS # 0.1 (0.0-0.7); EOS % 2.5 % (1.5-5.0); HEMOGLOBIN 12.8 g/dL (14.0-18.0); LYMPH # 1.8 (1.2-3.4); LYMPH % 37.3 % (22.0-35.0); MEAN CELL VOLUME 93.1 fl (80.0-105.0); MEAN CORPUSCULAR HEMOGLOBIN 31.5 pg (25.0-35.0); MEAN CORPUSCULAR HGB CONC 33.9 g/dl (31.0-37.0); MEAN PLATELET VOLUME 10.2 fl (7.0-11.0); MONO # 0.6 (0.1-0.6); MONO % 13.2 % (1.0-6.0); RBC 4.06 10^6/uL (3.5-6.1); RED CELL DISTRIBUTION WIDTH 14.1 % (11.5-14.5); WHITE BLOOD COUNT 4.9 10^3/uL (4.5-11.0)
[2018-08-02 07:50] LABS: ALB/GLOB RATIO 1.2 (1.1-1.8); ALBUMIN 4.3 g/dL (3.0-4.8); ALT/SGPT 23 U/L (7-56); AST/SGOT 49 U/L (17-59); BLOOD UREA NITROGEN 6 mg/dL (7-21); CALCIUM 9.5 mg/dL (8.4-10.5); GFR NON-AFRICAN AMERICAN > 60
[2018-08-02] MEDS: Enoxaparin 40 mg Syringe SC SCH (10:05)
[2018-08-02] MEDS: Multivitamin With Minerals Tab PO SCH (10:06)
[2018-08-02 16:52] VITALS: RESP 20
[2018-08-03 06:56] VITALS: O2SAT 98
[2018-08-03 07:05] LABS: BASO # 0.05 K/mm3 (0.0-2.0); BASO % 0.8 % (0.0-3.0); EOS # 0.2 (0.0-0.7); EOS % 3.1 % (1.5-5.0); HEMOGLOBIN 12.5 g/dL (14.0-18.0); LYMPH # 2.5 (1.2-3.4); LYMPH % 39.6 % (22.0-35.0); MEAN CELL VOLUME 93.4 fl (80.0-105.0); MEAN CORPUSCULAR HEMOGLOBIN 31.6 pg (25.0-35.0); MEAN CORPUSCULAR HGB CONC 33.9 g/dl (31.0-37.0); MONO # 0.7 (0.1-0.6); RBC 3.95 10^6/uL (3.5-6.1); WHITE BLOOD COUNT 6.4 10^3/uL (4.5-11.0)
[2018-08-03] MEDS: Pantoprazole 40 mg EC Tab PO SCH (08:23)
[2018-08-03 09:15] LABS: ALB/GLOB RATIO 1.2 (1.1-1.8); ALBUMIN 4.2 g/dL (3.0-4.8); ALT/SGPT 18 U/L (7-56); AST/SGOT 40 U/L (17-59); BLOOD UREA NITROGEN 8 mg/dL (7-21); CALCIUM 9.5 mg/dL (8.4-10.5); GFR NON-AFRICAN AMERICAN > 60
[2018-08-03] MEDS: Multivitamin With Minerals Tab PO SCH (09:44)
[2018-08-03] MEDS: Enoxaparin 40 mg Syringe SC SCH (09:44)
[2018-08-03] MEDS ORDERED: Potassium Chloride 20 mEq ER Tab PO STA (10:19)
[2018-08-03 12:34] VITALS: BP 144/89; PULSE 72; TEMP 98
--- NOTE | 2018-08-03 13:47 | CP.PCM.DIS ---
<Jemal Perdomo - Last Filed: 08/03/18 13:50> Provider - Provider Date of Admission: 07/31/18 05:02 Attending physician: Swathi Shine MD Time Spent in preparation of Discharge (in minutes): 35 Diagnosis - Discharge Diagnosis (1) Alcohol intoxication Status: Chronic (2) Alcohol withdrawal Status: Resolved Priority: High Hospital Course - Lab Results Lab Results: Most Recent Lab Values WBC 6.4 10^3/uL (4.5-11.0) D 08/03/18 06:45 RBC 3.95 10^6/uL (3.5-6.1) 08/03/18 06:45 Hgb 12.5 g/dL (14.0-18.0) L 08/03/18 06:45 Hct 36.9 % (42.0-52.0) L 08/03/18 06:45 MCV 93.4 fl (80.0-105.0) 08/03/18 06:45 MCH 31.6 pg (25.0-35.0) 08/03/18 06:45 MCHC 33.9 g/dl (31.0-37.0) 08/03/18 06:45 RDW 14.0 % (11.5-14.5) 08/03/18 06:45 Plt Count 195 10^3/uL (120.0-450.0) 08/03/18 06:45 MPV 10.0 fl (7.0-11.0) 08/03/18 06:45 Neut % (Auto) 45.5 % (50.0-68.0) L 08/03/18 06:45 Lymph % (Auto) 39.6 % (22.0-35.0) H 08/03/18 06:45 [place] % (Auto) 11.0 % (1.0-6.0) H 08/03/18 06:45 Eos % (Auto) 3.1 % (1.5-5.0) 08/03/18 06:45 Baso % (Auto) 0.8 % (0.0-3.0) 08/03/18 06:45 Lymph # (Auto) 2.5 (1.2-3.4) 08/03/18 06:45 [place] # (Auto) 0.7 (0.1-0.6) H 08/03/18 06:45 Eos # (Auto) 0.2 (0.0-0.7) 08/03/18 06:45 Baso # (Auto) 0.05 K/mm3 (0.0-2.0) 08/03/18 06:45 Absolute Neuts (auto) 2.91 (1.4-6.5) 08/03/18 06:45 PT 11.2 SECONDS (9.4-12.5) 07/31/18 04:10 INR 1.01 07/31/18 04:10 APTT 22.8 Seconds (26.9-38.3) L 07/31/18 04:10 Sodium 137 mmol/L (132-148) 08/03/18 06:45 Potassium 3.4 mmol/L (3.6-5.0) L 08/03/18 06:45 Chloride 103 mmol/L (98-107) 08/03/18 06:45 Carbon Dioxide 25 mmol/L (21-33) 08/03/18 06:45 Anion Gap 13 (10-20) 08/03/18 06:45 BUN 8 mg/dL (7-21) 08/03/18 06:45 Creatinine 0.8 mg/dl (0.8-1.5) 08/03/18 06:45 Est GFR ( Amer) > 60 08/03/18 06:45 Est GFR (Non-Af Amer) > 60 08/03/18 06:45 Random Glucose 102 mg/dL (70-110) 08/03/18 06:45 Calcium 9.5 mg/dL (8.4-10.5) 08/03/18 06:45 Phosphorus 3.0 mg/dL (2.5-4.5) 07/31/18 05:30 Magnesium 2.1 mg/dL (1.7-2.2) 07/31/18 05:30 Total Bilirubin 0.8 mg/dL (0.2-1.3) 08/03/18 06:45 AST 40 U/L (17-59) 08/03/18 06:45 ALT 18 U/L (7-56) 08/03/18 06:45 Alkaline Phosphatase 80 U/L (38-126) 08/03/18 06:45 Troponin I < 0.01 ng/mL 07/31/18 16:01 Total Protein 7.7 g/dL (5.8-8.3) 08/03/18 06:45 Albumin 4.2 g/dL (3.0-4.8) 08/03/18 06:45 Globulin 3.5 gm/dL 08/03/18 06:45 Albumin/Globulin Ratio 1.2 (1.1-1.8) 08/03/18 06:45 Urine Color Yellow (YELLOW) 08/01/18 11:00 Urine Appearance Clear (CLEAR) 08/01/18 11:00 Urine pH 7.0 (4.7-8.0) 08/01/18 11:00 Ur Specific [place] <= 1.005 (1.005-1.035) 08/01/18 11:00 Urine Protein Negative mg/dL (<30 mg/dL) 08/01/18 11:00 Urine Glucose (UA) Negative mg/dL (NEGATIVE) 08/01/18 11:00 Urine Ketones Negative mg/dL (NEGATIVE) 08/01/18 11:00 Urine Blood Trace-intact (NEGATIVE) H 08/01/18 11:00 Urine Nitrate Negative (NEGATIVE) 08/01/18 11:00 Urine Bilirubin Negative (NEGATIVE) 08/01/18 11:00 Urine Urobilinogen 0.2 E.U./dL (<1 E.U./dL) 08/01/18 11:00 Ur Leukocyte Esterase Negative Shahzad/uL (NEGATIVE) 08/01/18 11:00 Urine RBC 1 - 3 /hpf (0-2) H 08/01/18 11:00 Urine WBC 0 - 2 /hpf (0-6) 08/01/18 11:00 Ur Epithelial Cells None /hpf (0-5) 08/01/18 11:00 Urine Bacteria Few /hpf (NONE) 08/01/18 11:00 Urine Opiates Screen Negative (NEGATIVE) 08/01/18 11:00 Urine Methadone Screen Negative (NEGATIVE) 08/01/18 11:00 Ur Barbiturates Screen Negative (NEGATIVE) 08/01/18 11:00 Ur Phencyclidine Scrn Negative (NEGATIVE) 08/01/18 11:00 Ur Amphetamines Screen Negative (NEGATIVE) 08/01/18 11:00 U Benzodiazepines Scrn Positive (NEGATIVE) H 08/01/18 11:00 U Oth Cocaine Metabols Negative (NEGATIVE) 08/01/18 11:00 U Cannabinoids Screen Negative (NEGATIVE) 08/01/18 11:00 Alcohol, Quantitative 94 mg/dL (0-10) H 07/31/18 04:10 - Hospital Course Hospital Course: Jemal Perdomo DO, PGY-1 Hospitalist Discharge Summary for Dr. Shine Patient is a 57 year old male with PMH of HTN, panic attacks, CAD s/p stent (2012), and EtOH abuse (with DT) was brought in by EMS for acute EtOH intoxication. He was subsequently admitted and treated for symptoms of acute alcohol withdrawal. He was started on CIWA protocol on admission and required 2 mg of ativan initially. His CIWA scores continued to be around 10-11. Librium was subsequently added for better control. CIWA scores began to improve, librium and ativan were weaned. Patient's symptoms continued to improve throughout admission. This AM, his initial symptoms of tremor and anxiety have mostly resolved and he feels ready for discharge. Prior to discharge today, patient was given information on AA and was encouraged to attend a program like this. He was advised to abstain from smoking and alcohol entirely or he would get recurrent episodes. All of his home medications were delivered at bedside prior to discharge. An appointment was made for him at [facility] at [facility] [place]. Discharge plan was discussed with patient. All questions were answered. Patient seen, examined, and discharge plan discussed with my attending Dr. Fátima Perdomo D.O. IM Resident PGY-1 Discharge Exam - Head Exam Head Exam: ATRAUMATIC, NORMOCEPHALIC - Eye Exam Eye Exam: EOMI, Normal appearance, PERRL - ENT Exam ENT Exam: Mucous Membranes Moist - Neck Exam Neck exam: Full Rom, Normal Inspection - Respiratory Exam Respiratory Exam: Clear to PA & Lateral, UNREMARKABLE. absent: Rales, Rhonchi, Wheezes - Cardiovascular Exam Cardiovascular Exam: REGULAR RHYTHM, RRR, +S1, +S2. absent: Diastolic murmur, Gallop, Rubs, Systolic Murmur - GI/Abdominal Exam GI & Abdominal Exam: Normal Bowel Sounds, Soft, Unremarkable - Extremities Exam Extremities exam: full ROM, normal inspection - Back Exam Back exam: NORMAL INSPECTION - Neurological Exam Neurological exam: Alert, Oriented x3 - Psychiatric Exam Psychiatric exam: Anxious - Skin Skin Exam: Dry, Intact, Warm Discharge Plan - Discharge Medications Prescriptions: RX: Aspirin [Ecotrin] 81 mg PO DAILY #14 tabec RX: Atorvastatin [Lipitor] 20 mg PO DIN #14 tab RX: Folic Acid 1 mg PO DAILY #14 tab RX: Metoprolol Tartrate [Lopressor] 25 mg PO BRKDIN #28 tab RX: Multimineral/Multivitamin [Therapeutic-M Tab] 1 tab PO DAILY #28 tab RX: Thiamine [Vitamin B1 Tab] 100 mg PO DAILY #14 tab - Follow Up Plan Condition: FAIR Disposition: HOME/ ROUTINE Instructions: Alcohol Use - When Is Drinking a Problem?, Heart Healthy Diet, Quitting Smoking for Older Adults, Alcohol Withdrawal, Alcohol Abuse and Alcoholism (DC), Drugs to Help You Stop Using Tobacco Additional Instructions: *Please follow up with [facility] within 1-2 weeks of discharge. *We left a message with the clinic captain airline pilot to call you tomorrow to help set up your appointment. *Please stop drinking all alcohol, otherwise these episodes will happen again. * We have given you paperwork on alcoholics anonymous. We advise you to consider enrolling in the program here. *Please continue all of your home medications as prescribed. *If any of your symptoms worsen, please present to nearest ED. <Swathi Shine - Last Filed: 08/03/18 14:37> Provider - Provider Date of Admission: 07/31/18 05:02 Attending physician: Swathi Shine MD Hospital Course - Lab Results Lab Results: Most Recent Lab Values WBC 6.4 10^3/uL (4.5-11.0) D 08/03/18 06:45 RBC 3.95 10^6/uL (3.5-6.1) 08/03/18 06:45 Hgb 12.5 g/dL (14.0-18.0) L 08/03/18 06:45 Hct 36.9 % (42.0-52.0) L 08/03/18 06:45 MCV 93.4 fl (80.0-105.0) 08/03/18 06:45 MCH 31.6 pg (25.0-35.0) 08/03/18 06:45 MCHC 33.9 g/dl (31.0-37.0) 08/03/18 06:45 RDW 14.0 % (11.5-14.5) 08/03/18 06:45 Plt Count 195 10^3/uL (120.0-450.0) 08/03/18 06:45 MPV 10.0 fl (7.0-11.0) 08/03/18 06:45 Neut % (Auto) 45.5 % (50.0-68.0) L 08/03/18 06:45 Lymph % (Auto) 39.6 % (22.0-35.0) H 08/03/18 06:45 [place] % (Auto) 11.0 % (1.0-6.0) H 08/03/18 06:45 Eos % (Auto) 3.1 % (1.5-5.0) 08/03/18 06:45 Baso % (Auto) 0.8 % (0.0-3.0) 08/03/18 06:45 Lymph # (Auto) 2.5 (1.2-3.4) 08/03/18 06:45 [place] # (Auto) 0.7 (0.1-0.6) H 08/03/18 06:45 Eos # (Auto) 0.2 (0.0-0.7) 08/03/18 06:45 Baso # (Auto) 0.05 K/mm3 (0.0-2.0) 08/03/18 06:45 Absolute Neuts (auto) 2.91 (1.4-6.5) 08/03/18 06:45 PT 11.2 SECONDS (9.4-12.5) 07/31/18 04:10 INR 1.01 07/31/18 04:10 APTT 22.8 Seconds (26.9-38.3) L 07/31/18 04:10 Sodium 137 mmol/L (132-148) 08/03/18 06:45 Potassium 3.4 mmol/L (3.6-5.0) L 08/03/18 06:45 Chloride 103 mmol/L (98-107) 08/03/18 06:45 Carbon Dioxide 25 mmol/L (21-33) 08/03/18 06:45 Anion Gap 13 (10-20) 08/03/18 06:45 BUN 8 mg/dL (7-21) 08/03/18 06:45 Creatinine 0.8 mg/dl (0.8-1.5) 08/03/18 06:45 Est GFR ( Amer) > 60 08/03/18 06:45 Est GFR (Non-Af Amer) > 60 08/03/18 06:45 Random Glucose 102 mg/dL (70-110) 08/03/18 06:45 Calcium 9.5 mg/dL (8.4-10.5) 08/03/18 06:45 Phosphorus 3.0 mg/dL (2.5-4.5) 07/31/18 05:30 Magnesium 2.1 mg/dL (1.7-2.2) 07/31/18 05:30 Total Bilirubin 0.8 mg/dL (0.2-1.3) 08/03/18 06:45 AST 40 U/L (17-59) 08/03/18 06:45 ALT 18 U/L (7-56) 08/03/18 06:45 Alkaline Phosphatase 80 U/L (38-126) 08/03/18 06:45 Troponin I < 0.01 ng/mL 07/31/18 16:01 Total Protein 7.7 g/dL (5.8-8.3) 08/03/18 06:45 Albumin 4.2 g/dL (3.0-4.8) 08/03/18 06:45 Globulin 3.5 gm/dL 08/03/18 06:45 Albumin/Globulin Ratio 1.2 (1.1-1.8) 08/03/18 06:45 Urine Color Yellow (YELLOW) 08/01/18 11:00 Urine Appearance Clear (CLEAR) 08/01/18 11:00 Urine pH 7.0 (4.7-8.0) 08/01/18 11:00 Ur Specific [place] <= 1.005 (1.005-1.035) 08/01/18 11:00 Urine Protein Negative mg/dL (<30 mg/dL) 08/01/18 11:00 Urine Glucose (UA) Negative mg/dL (NEGATIVE) 08/01/18 11:00 Urine Ketones Negative mg/dL (NEGATIVE) 08/01/18 11:00 Urine Blood Trace-intact (NEGATIVE) H 08/01/18 11:00 Urine Nitrate Negative (NEGATIVE) 08/01/18 11:00 Urine Bilirubin Negative (NEGATIVE) 08/01/18 11:00 Urine Urobilinogen 0.2 E.U./dL (<1 E.U./dL) 08/01/18 11:00 Ur Leukocyte Esterase Negative Shahzad/uL (NEGATIVE) 08/01/18 11:00 Urine RBC 1 - 3 /hpf (0-2) H 08/01/18 11:00 Urine WBC 0 - 2 /hpf (0-6) 08/01/18 11:00 Ur Epithelial Cells None /hpf (0-5) 08/01/18 11:00 Urine Bacteria Few /hpf (NONE) 08/01/18 11:00 Urine Opiates Screen Negative (NEGATIVE) 08/01/18 11:00 Urine Methadone Screen Negative (NEGATIVE) 08/01/18 11:00 Ur Barbiturates Screen Negative (NEGATIVE) 08/01/18 11:00 Ur Phencyclidine Scrn Negative (NEGATIVE) 08/01/18 11:00 Ur Amphetamines Screen Negative (NEGATIVE) 08/01/18 11:00 U Benzodiazepines Scrn Positive (NEGATIVE) H 08/01/18 11:00 U Oth Cocaine Metabols Negative (NEGATIVE) 08/01/18 11:00 U Cannabinoids Screen Negative (NEGATIVE) 08/01/18 11:00 Alcohol, Quantitative 94 mg/dL (0-10) H 07/31/18 04:10 Attending/Attestation - Attestation I have personally seen and examined this patient.: Yes I have fully participated in the care of the patient.: Yes I have reviewed all pertinent clinical information, including history, physical exam and plan: Yes Notes (Text): 08/03/18 14:33 Medical record note made by the resident after discussion with my direction and input after the patient was personally seen and examined by me. I have reviewed the chart and agree that the record accurately reflects by personal performance of the history, physical exam, data review, and medical decision-making, in the course for the patient. I have also personally directed the plan of care. 57 year old male with past medical history of HTN, CAD, alcohol abuse was admitted with alcohol intoxication and was treated for alcohol withdrawal. Patient alcohol withdrawals are improved.He is feeling better He is ambulatory. Issue of ongoing alcohol abuse was discussed in detail with him.He was given information about out patient alcohol rehabilitation . Prognosis is guarded due to non compliance and ongoing alcohol abuse. Patient will follow up with [facility] clinic.
== END 2018-08-03 14:03 | disposition home or self-care (01) | DRG 775 ==
LOC: ED 13:05 → ERH 07-31 05:02 → 2RSO 07-31 06:47
PROVIDERS: ADMIT Hospitalist; ATTEND Internal Medicine
DX: F10.239 Alcohol dependence with withdrawal, unspecified (principal); F10.229 Alcohol dependence with intoxication, unspecified; I48.0 Paroxysmal atrial fibrillation; I10 Essential (primary) hypertension; J44.9 Chronic obstructive pulmonary disease, unspecified; I25.10 Atherosclerotic heart disease of native coronary artery without angina pectoris; Y90.4 Blood alcohol level of 80-99 mg/100 ml; F41.0 Panic disorder [episodic paroxysmal anxiety]; Z91.14 Patient's other noncompliance with medication regimen; Z95.5 Presence of coronary angioplasty implant and graft; Z95.0 Presence of cardiac pacemaker; Z87.891 Personal history of nicotine dependence

== ENCOUNTER 2018-09-29 08:38 | Emergency (ER) | payer SELFPAY ==
[2018-09-29 08:45] VITALS: BMI 27.4
--- NOTE | 2018-09-29 09:15 | ED PDOC ---
Arrival/HPI - General Chief Complaint: Anxiety Historian: Patient, EMS - History of Present Illness Narrative History of Present Illness (Text): 09/29/18 09:58 57M w/ h/o EtOH abuse presenting to the Emergency Room by EMS after being found in front of his apartment wandering around. The patient mentioned to EMS that he was feeling anxious and dyspneic yesterday and continued into this morning where he called EMS. Upon presentation to the Emergency Room, symptoms completely resolved and patient denies any chest pain or shortness of breath. He admits his last alcoholic drink was yesterday and did not ingest any medication today. He denies any somatic complaints at this time and is able to answer questions appropriately without redirection. Time/Duration: Prior to Arrival Symptom Onset: Sudden Symptom Course: Unchanged Activities at Onset: Rest Context: Home Past Medical History - Provider Review Nursing Documentation Reviewed: Yes - Travel History Have you recently traveled outside [place] w/in the past 3 mons?: No - Infectious Disease Hx of Infectious Diseases: None - Tetanus Immunization Tetanus Immunization: Unknown - Cardiac Hx Cardiac Disorders: Yes (a fib, palpitations, cad) Hx Cardiac Arrhythmia: Yes Hx Congestive Heart Failure: Yes (Paroxymal Afib) Hx Hypertension: Yes Hx Pacemaker: Yes Other/Comment: paroxymal afib, irregular heartbeat - Pulmonary Hx Respiratory Disorders: Yes Hx Asthma: Yes Hx Bronchitis: Yes Hx Chronic Obstructive Pulmonary Disease (COPD): Yes - Neurological Hx Neurological Disorder: Yes (loc) Hx Dizziness: Yes - HEENT Hx HEENT Disorder: Yes (eyeglasses) - Renal Hx Renal Disorder: No - Endocrine/Metabolic Hx Endocrine Disorders: No - Hematological/Oncological Hx Blood Disorders: Yes Other/Comment: hyponatremia - Integumentary Hx Dermatological Disorder: Yes - Musculoskeletal/Rheumatological Hx Falls: Yes - Gastrointestinal Hx Gastrointestinal Disorders: Yes (gi bleed) - Genitourinary/Gynecological Hx Genitourinary Disorders: No - Psychiatric Hx Psychophysiologic Disorder: Yes Hx Anxiety: Yes Hx Depression: Yes Hx Panic Disorder: Yes Hx Substance Use: No - Past Surgical History Past Surgical History: No Previous - Surgical History Hx Cardiac Catheterization: Yes (x1 2011) Hx Coronary Stent: Yes - Anesthesia Hx Anesthesia: Yes Hx Anesthesia Reactions: No Hx Malignant Hyperthermia: No - Suicidal Assessment Feels Threatened In Home Enviroment: No Family/Social History - Physician Review Nursing Documentation Reviewed: Yes Family/Social History: Unknown Family HX Smoking Status: Former Smoker Hx Alcohol Use: Yes (whiskey/beer intermittent use) Amount per day: 5 Hx Substance Use: No Hx Substance Use Treatment: No Allergies/Home Meds Allergies/Adverse Reactions: Allergies No Known Allergies Allergy (Verified 04/06/18 19:54) Review of Systems - Physician Review All systems were reviewed & negative as marked: Yes - Review of Systems Respiratory: absent: SOB Psychiatric: Anxiety Physical Exam Vital Signs Reviewed: Yes Vital Signs Temp Pulse Resp BP Pulse Ox 09/29/18 08:45 98.7 F 94 H 19 121/64 99 Temperature: Afebrile Blood Pressure: Normal Pulse: Regular Respiratory Rate: Normal Appearance: Positive for: Well-Appearing, Non-Toxic, Unkept Mental Status: Positive for: Alert and Oriented X 3 - Systems Exam Head: Present: Normocephalic, Ecchymosis (Right eye ecchymosis noted). No: Tenderness, Laceration Pupils: Present: PERRL Extroacular Muscles: Present: EOMI Conjunctiva: No: Normal Mouth: Present: Moist Mucous Membranes Neck: Present: Normal Range of Motion Respiratory/Chest: Present: Clear to Auscultation, Good Air Exchange. No: Respiratory Distress Cardiovascular: Present: Regular Rate and Rhythm, Normal S1, S2. No: Murmurs Abdomen: Present: Normal Bowel Sounds. No: Tenderness, Distention Psychiatric: Present: Alert, Oriented x 3, Normal Concentration Medical Decision Making ED Course and Treatment: 09/29/18 11:52 Impression 57M w/ h/o alcohol abuse presenting to the Emergency Room for dyspnea and anxiety Plan --EKG --Librium --Finger Stick Glucose --Serum Alcohol Progress Notes 09/29/18 11:53 FSG noted to be 122 with alcohol level noted to be less than 10. Patient noted to ambulate unassisted to and from the bathroom. He denies any somatic complaints at this time and will be discharged. - Lab Interpretations Lab Results: Lab Results 09/29/18 09:49: Alcohol, Quantitative < 10 09/29/18 09:46: POC Glucose (mg/dL) 122 H I have reviewed the lab results: Yes - EKG Interpretation EKG Interpretation (Text): 09/29/18 09:02 EKG reviewed, shows NSR@90 bpm, No ST elevations, Prolonged QT interval. Interpreted by ED Physician: Yes Type: 12 lead EKG Disposition/Present on Arrival - Present on Arrival Any Indicators Present on Arrival: No History of DVT/PE: No History of Uncontrolled Diabetes: No Urinary Catheter: No History of Decub. Ulcer: No History Surgical Site Infection Following: None - Disposition Have Diagnosis and Disposition been Completed?: Yes Diagnosis: Anxiety Disposition: HOME/ ROUTINE Disposition Time: 12:03 Patient Plan: Discharge Condition: STABLE Discharge Instructions (ExitCare): Anxiety, Adult (DC) Print Language: GREENLANDIC Additional Instructions: Try to consume MODERATE amounts of alcohol. Referrals: Dary Pedroza MD [Medical Doctor] - Follow up with primary [facility] [place] - Follow up with primary Forms: [facility] (Sinhala)
[2018-09-29] MEDS: Albuterol-Ipratrop 3 mg / 0.5 (3 ml) UD IH SCH ×3 (12:15→12:51)
[2018-09-29 12:22] VITALS: RESP 20; O2SAT 98
[2018-09-29 14:56] VITALS: BP 119/72; PULSE 98; TEMP 98.2
--- NOTE | 2018-09-29 19:13 | CARD ---
APPROVED REPORT Date of service: 09/29/2018 EKG Measurement Heart [id number] <Conclusion> Sinus rhythm with 1st degree AV block Inferior infarct, age undetermined Slow R wave progression V1-3 Prolonged QT CCR Abnormal ECG
== END 2018-09-29 14:05 | disposition home or self-care (01) ==
LOC: ED 08:38
DX: F41.9 Anxiety disorder, unspecified (principal); I25.10 Atherosclerotic heart disease of native coronary artery without angina pectoris; I48.0 Paroxysmal atrial fibrillation; I10 Essential (primary) hypertension
CPT/HCPCS: 82948; 93005; 99284; G0480

== ENCOUNTER 2018-10-19 06:42 | Observation (INO) | payer MEDICAID, OTHER ==
[2018-10-19] MEDS ORDERED: Sodium Chloride 0.9% 1,000 ML IV STA (07:19)
--- NOTE | 2018-10-19 07:25 | ED PDOC ---
Arrival/HPI - General Chief Complaint: Alcohol Ingestion Time Seen by Provider: 10/19/18 07:03 Historian: Patient - History of Present Illness Narrative History of Present Illness (Text): 10/19/18 07:03 Keanu Smyth is a 57 y/o male, with a past medical history of alcohol abuse, hypertension, panic attacks, CAD s/p stents (2012), who presents to the emergency department complaining his body "feels like its on fire" since one week. Patient notes associated mid-sternal chest pain and shortness of breath since one week. Patient also complains of alcohol abuse. Reports daily drinking since one month. Patient is requesting detox. Patient denies fevers, chills, night sweats, vision changes, headache, dizziness, cough, abdominal pain, diarrhea, nausea, vomiting, bloody stool, dysuria, hematuria, back pain, neck pain, rash, diaphoresis, or any other complaint. Time/Duration: 1 week Symptom Onset: Gradual Symptom Course: Unchanged Activities at Onset: Light Context: Home Past Medical History - Provider Review Nursing Documentation Reviewed: Yes - Infectious Disease Hx of Infectious Diseases: None - Tetanus Immunization Tetanus Immunization: Unknown - Cardiac Hx Cardiac Disorders: Yes (a fib, palpitations, cad) Hx Cardiac Arrhythmia: Yes Hx Congestive Heart Failure: Yes (Paroxymal Afib) Hx Hypertension: Yes Hx Pacemaker: Yes Other/Comment: paroxymal afib, irregular heartbeat - Pulmonary Hx Respiratory Disorders: Yes Hx Asthma: Yes Hx Bronchitis: Yes Hx Chronic Obstructive Pulmonary Disease (COPD): Yes - Neurological Hx Neurological Disorder: Yes (loc) Hx Dizziness: Yes - HEENT Hx HEENT Disorder: Yes (eyeglasses) - Renal Hx Renal Disorder: No - Endocrine/Metabolic Hx Endocrine Disorders: No - Hematological/Oncological Hx Blood Disorders: Yes Other/Comment: hyponatremia - Integumentary Hx Dermatological Disorder: Yes - Musculoskeletal/Rheumatological Hx Musculoskeletal Disorders: Yes Hx Falls: Yes - Gastrointestinal Hx Gastrointestinal Disorders: Yes (gi bleed) - Genitourinary/Gynecological Hx Genitourinary Disorders: No - Psychiatric Hx Psychophysiologic Disorder: Yes Hx Anxiety: Yes Hx Depression: Yes Hx Panic Disorder: Yes Hx Substance Use: No - Past Surgical History Past Surgical History: No Previous - Surgical History Hx Cardiac Catheterization: Yes (x1 2011) Hx Coronary Stent: Yes - Anesthesia Hx Anesthesia: Yes Hx Anesthesia Reactions: No Hx Malignant Hyperthermia: No - Suicidal Assessment Feels Threatened In Home Enviroment: No Family/Social History - Physician Review Nursing Documentation Reviewed: Yes Family/Social History: Unknown Family HX Smoking Status: Heavy Smoker > 10 Cigarettes Daily Hx Alcohol Use: Yes Frequency of alcohol use: Daily Amount per day: 5 Hx Substance Use: No Hx Substance Use Treatment: No Allergies/Home Meds Allergies/Adverse Reactions: Allergies No Known Allergies Allergy (Verified 04/06/18 19:54) Home Medications: Home Meds Medication Instructions Recorded Confirmed Metoprolol Tartrate [Lopressor] 50 mg PO BRKDIN 10/19/18 10/19/18 Sertraline [Zoloft] 100 mg PO DAILY 10/19/18 10/19/18 Simvastatin [Zocor] 40 mg PO DAILY 10/19/18 10/19/18 Valsartan/Hydrochlorothiazide 1 each PO DAILY 10/19/18 10/19/18 [Diovan Hct 320-25 mg Tablet] amLODIPine [Norvasc] 10 mg PO DAILY 10/19/18 10/19/18 Review of Systems - Physician Review All systems were reviewed & negative as marked: Yes - Review of Systems Constitutional: absent: Fevers, Night Sweats, Other (chills) Eyes: absent: Vision Changes Respiratory: SOB. absent: Cough Cardiovascular: Chest Pain Gastrointestinal: absent: Abdominal Pain, Diarrhea, Nausea, Vomiting Genitourinary Male: absent: Dysuria, Hematuria Musculoskeletal: absent: Back Pain, Neck Pain Skin: absent: Rash Endocrine: absent: Diaphoresis Physical Exam - Physical Exam Narrative Physical Exam (Text): 10/19/18 07:03 Gen: VS reviewed, alert, well developed, well nourished, nontoxic, mild distress. ENT: normal pharynx. Eye: EOMI, PERRL. Neck: no JVD, supple, no adenopathy. CV: Distant heart sounds. regular rate, regular rhythm. Pulm: no distress, clear to auscultation, no wheeze, no rhonchi, breath sounds equal, no rales. Abd: soft, nontender, no guarding, no rebound, no rigidity, normal bowel sounds. Ext: no edema. Skin: good color, no rash, no cyanosis. Psych: responds appropriately to questions, normal affect. Neuro: oriented x 3, CN2-12 intact grossly, motor intact, sensation intact. Vital Signs Reviewed: Yes Vital Signs Temp Pulse Resp BP Pulse Ox 10/19/18 06:50 97.4 F L 74 24 91/50 L 95 Temperature: Afebrile Blood Pressure: Hypotensive Pulse: Regular Respiratory Rate: Normal Appearance: Positive for: Well-Appearing, Non-Toxic, Comfortable Pain Distress: None Mental Status: Positive for: Alert and Oriented X 3 Finger Stick Blood Glucose: 134 Medical Decision Making ED Course and Treatment: 10/19/18 09:[address] marsh to the hospitalist service, observation. Patient to be admitted for chest pain rule out acs. CTA was done to rule out PE as the patient reports shortness of breath. At this time the patient does not exhibit s/s of acute alcohol withdrawal. CIWA score = 0 Patient reported to the nurses he was having chest pain. Patient informed to me he is having chest pain but in addition is having whole body burning. - RAD Interpretation Narrative RAD Interpretations (Text): 10/19/18 09:13 CT Chest shows: Impression: Cardiomegaly. No large central or segmental pulmonary embolus identified. Visualized portions of the esophagus appears thick walled; correlate clinically. Suggest further evaluation with endoscopy if indicated. Emphysematous changes. Small hiatal hernia. Radiology Orders: 10/19/18 07:19 ANGIO CHEST PE PROTOCOL [CT] Stat Boiler Cleaner: Radiologist - EKG Interpretation EKG Interpretation (Text): 10/19/18 07:21 Reviewed EKG, shows: NSR at 74 BPM. 1st Degree AV block. Anterior infarct. Normal QRS. No acute ST / T wave abnormalities. Interpreted by ED Physician: Yes Type: 12 lead EKG - Scribe Statement The provider has reviewed the documentation as recorded by the Scribnina Barkley All medical record entries made by the Scribe were at my direction and personally dictated by me. I have reviewed the chart and agree that the record accurately reflects my personal performance of the history, physical exam, medical decision making, and the department course for this patient. I have also personally directed, reviewed, and agree with the discharge instructions and disposition. Disposition/Present on Arrival - Present on Arrival Any Indicators Present on Arrival: No History of DVT/PE: No History of Uncontrolled Diabetes: No Urinary Catheter: No History of Decub. Ulcer: No History Surgical Site Infection Following: None - Disposition Have Diagnosis and Disposition been Completed?: Yes Diagnosis: Chest pain Disposition: HOSPITALIZED Disposition Time: 14:57 Patient Plan: Admission Condition: STABLE
[2018-10-19 07:36] LABS: BASO # 0.05 {null, K/mm3} (0.0-2.0); BASO % 0.8 % (0.0-3.0); EOS # 0.1 (0.0-0.7); EOS % 1.5 % (1.5-5.0); HEMOGLOBIN 12.6 g/dL (14.0-18.0); LYMPH # 2.8 (1.2-3.4); LYMPH % 42.3 % (22.0-35.0); MEAN CELL VOLUME 92.6 fl (80.0-105.0); MEAN CORPUSCULAR HEMOGLOBIN 33.2 pg (25.0-35.0); MEAN CORPUSCULAR HGB CONC 35.8 g/dl (31.0-37.0); MEAN PLATELET VOLUME 9.7 fl (7.0-11.0); MONO # 0.7 (0.1-0.6); MONO % 9.8 % (1.0-6.0); RBC 3.8 {null, 10^6/uL} (3.5-6.1); RED CELL DISTRIBUTION WIDTH 13.6 % (11.5-14.5); WHITE BLOOD COUNT 6.7 {null, 10^3/uL} (4.5-11.0)
[2018-10-19 07:51] LABS: INR 0.96; PARTIAL THROMBOPLASTIN TIME 27.7 Seconds (26.9-38.3); PROTHROMBIN TIME 10.8 SECONDS (9.4-12.5)
[2018-10-19 07:53] LABS: VENOUS BLOOD GAS BASE EXCESS -7.9 mmol/L (0.0-2.0); VENOUS BLOOD GAS PO2 182 mm/Hg (30-55); VENOUS BLOOD PH 7.34 (7.32-7.43)
[2018-10-19 08:09] LABS: ALB/GLOB RATIO 1.3 (1.1-1.8); ALBUMIN 4.1 g/dL (3.0-4.8); ALT/SGPT 27 U/L (7-56); AST/SGOT 61 U/L (17-59); BLOOD UREA NITROGEN 20 mg/dL (7-21); CALCIUM 8.1 mg/dL (8.4-10.5); GFR NON-AFRICAN AMERICAN > 60
[2018-10-19 08:20] LABS: B-TYPE NATRIURETIC PEPTIDE 153 pg/mL (0-450); TROPONIN I < 0.01 ng/mL
[2018-10-19] MEDS ORDERED: Iohexol 350 MG/100 ML VIAL ONE (08:26)
--- NOTE | 2018-10-19 09:16 | CT ---
Date of service: 10/19/2018 CTA chest PE protocol Indication: pulmonary embolism Technique: Contiguous axial images were obtained through the chest with intravenous contrast enhancement. Sagittal and coronal reconstructions were generated and reviewed. This CT exam was performed using 1 or more of the following dose reduction techniques: Automated exposure control, adjustment of the MAA and/or kV according to patient size, and/or use of iterative reconstruction technique. IV contrast: 100 mL Omnipaque 350 IV Radiation dose (DLP): 474.12 MGy-cm. Comparison: Chest x-ray performed 07/31/18 Findings: Visualized portions of the inferior thyroid gland appear unremarkable. The mediastinal and hilar vascular structures appear within normal limits. Cardiomegaly. No large central or segmental pulmonary embolus evident. Emphysematous changes. No focal consolidation. No pleural effusion. No pneumothorax. No suspicious pulmonary nodules measuring greater than 5 mm. Visualized portions of the esophagus appears thick walled. Small hiatal hernia. Limited visualized portions of the upper abdomen appear grossly unremarkable. Degenerative changes of the spine. Chronic appearing right 10th posterior rib fracture deformity. Impression: Cardiomegaly. No large central or segmental pulmonary embolus identified. Visualized portions of the esophagus appears thick walled; correlate clinically. Suggest further evaluation with endoscopy if indicated. Emphysematous changes. Small hiatal hernia.
--- NOTE | 2018-10-19 09:54 | CP.PCM.HP ---
<Aurelia Lopez - Last Filed: 10/19/18 11:04> History of Present Illness - History of Present Illness History of Present Illness: P[facility] Medicine H&P for Dr. Flores 57yo male PMHx CAD s/p stent 2012, HTN, EtOH abuse, tobacco abuse, and HTN presents with EtOH intoxication and complaints of chest pain. Patient reported the chest pain felt like a burning sensation in the middle of his chest and did not radiate to either arms or his jaw. He denied any dyspnea at rest/exertion and denied any palpitations. He did admit to headaches, dizziness, nonproductive cough, nausea, and diarrhea. Patient denied any vomiting, constipation, b/l LE pain/swelling. He reports having had EtOH withdrawal in the past and is worried that he will withdraw tomorrow; he reports usually having visual hallucinations and tremors on withdrawal. Patient also voiced concern about his drinking and tobacco use and stated he is determined that upon discharge from the hospital on this admission he will abstain. PMhx: HTN, panic attacks, CAD s/p stent (2012), and EtOH abuse, tobacco abuse PSH: 1 cardiac stent placement (2012) SocHx: drinks approximately 15 beers per day, started drinking at age of 7. smokes 1ppd, denies illicit drug use. 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 Victor [last seen 6 months ago] Cardio: Dr. Whitfield [last seen 1.5 years ago] Pharmacy: [facility] Present on Admission - Present on Admission Any Indicators Present on Admission: No Review of Systems - Review of Systems All systems: reviewed and no additional remarkable complaints except Review of Systems: as per HPI Past Patient History - Infectious Disease Hx of Infectious Diseases: None - Tetanus Immunizations Tetanus Immunization: Unknown - Past Social History Smoking Status: Heavy Smoker > 10 Cigarettes Daily - CARDIAC Hx Cardiac Disorders: Yes (a fib, palpitations, cad) Hx Cardia Arrhythmia: Yes Hx Congestive Heart Failure: Yes (Paroxymal Afib) Hx Hypertension: Yes Hx Pacemaker: Yes Other/Comment: paroxymal afib, irregular heartbeat - PULMONARY Hx Respiratory Disorders: Yes Hx Asthma: Yes Hx Bronchitis: Yes Hx Chronic Obstructive Pulmonary Disease (COPD): Yes - NEUROLOGICAL Hx Neurological Disorder: Yes (loc) Hx Dizziness: Yes - HEENT Hx HEENT Problems: Yes (eyeglasses) - RENAL Hx Chronic Kidney Disease: No - ENDOCRINE/METABOLIC Hx Endocrine Disorders: No - HEMATOLOGICAL/ONCOLOGICAL Hx Blood Disorders: Yes Other/Comment: hyponatremia - INTEGUMENTARY Hx Dermatological Problems: Yes - MUSCULOSKELETAL/RHEUMATOLOGICAL Hx Musculoskeletal Disorders: Yes Hx Falls: Yes - GASTROINTESTINAL Hx Gastrointestinal Disorders: Yes (gi bleed) - GENITOURINARY/GYNECOLOGICAL Hx Genitourinary Disorders: No - PSYCHIATRIC Hx Psychophysiologic Disorder: Yes Hx Anxiety: Yes Hx Depression: Yes Hx Panic Symptoms: Yes Hx Substance Use: No - SURGICAL HISTORY Hx Cardiac Catheterization: Yes (x1 2012) Hx Coronary Stent: Yes - ANESTHESIA Hx Anesthesia: Yes Hx Anesthesia Reactions: No Hx Malignant Hyperthermia: No Meds Allergies/Adverse Reactions: Allergies Allergy/AdvReac Type Severity Reaction Status Date / Time No Known Allergies Allergy Verified 04/06/18 19:54 Physical Exam - Constitutional Appears: No Acute Distress, Unkempt - Head Exam Head Exam: ATRAUMATIC, NORMAL INSPECTION, NORMOCEPHALIC - Eye Exam Eye Exam: EOMI, Normal appearance, PERRL. absent: Conjunctival injection, Scleral icterus Pupil Exam: NORMAL ACCOMODATION - ENT Exam ENT Exam: Mucous Membranes Dry - Neck Exam Neck exam: Positive for: Full Rom, Normal Inspection. Negative for: Lymphadenopathy - Respiratory Exam Respiratory Exam: Clear to Auscultation Bilateral, NORMAL BREATHING PATTERN. absent: Accessory Muscle Use, Rales, Rhonchi, Wheezes, Respiratory Distress - Cardiovascular Exam Cardiovascular Exam: +S1, +S2. absent: Systolic Murmur - GI/Abdominal Exam GI & Abdominal Exam: Normal Bowel Sounds, Soft. absent: Firm, Guarding, Rigid, Tenderness - Extremities Exam Extremities exam: Positive for: normal capillary refill, normal inspection, pedal pulses present. Negative for: pedal edema - Back Exam Back exam: NORMAL INSPECTION. absent: rash noted, tenderness - Neurological Exam Neurological exam: Alert, CN II-XII Intact, Oriented x3 - Psychiatric Exam Psychiatric exam: Normal Affect, Normal Mood - Skin Skin Exam: Dry, Intact, Normal Color, Warm Results - Vital Signs Recent Vital Signs: Last Vital Signs Temp 97.4 F L 10/19/18 06:50 Pulse 73 10/19/18 09:00 Resp 16 10/19/18 09:00 BP 111/64 10/19/18 09:00 Pulse Ox 96 10/19/18 09:00 - Labs Result Diagrams: 10/19/18 07:19 10/19/18 07:19 Labs: Laboratory Results - last 24 hr 10/19/18 10/19/18 10/19/18 06:56 07:19 07:19 WBC 6.7 RBC 3.80 Hgb 12.6 L Hct 35.2 L MCV 92.6 MCH 33.2 MCHC 35.8 RDW 13.6 Plt Count 296 MPV 9.7 Neut % (Auto) 45.6 L Lymph % (Auto) 42.3 H [place] % (Auto) 9.8 H Eos % (Auto) 1.5 Baso % (Auto) 0.8 Lymph # (Auto) 2.8 [place] # (Auto) 0.7 H Eos # (Auto) 0.1 Baso # (Auto) 0.05 Absolute Neuts (auto) 3.04 PT 10.8 INR 0.96 APTT 27.7 pO2 VBG pH VBG pCO2 VBG HCO3 VBG Total CO2 VBG O2 Sat (Calc) VBG Base Excess VBG Potassium Glucose Lactate FiO2 Sodium Potassium Chloride Carbon Dioxide Anion Gap BUN Creatinine Est GFR ( Amer) Est GFR (Non-Af Amer) POC Glucose (mg/dL) 134 H Random Glucose Calcium Magnesium Total Bilirubin AST ALT Alkaline Phosphatase Troponin I NT-Pro-B Natriuret Pep Total Protein Albumin Globulin Albumin/Globulin Ratio TSH 3rd Generation Venous Blood Potassium Alcohol, Quantitative 10/19/18 10/19/18 10/19/18 07:19 07:19 07:45 WBC RBC Hgb Hct MCV MCH MCHC RDW Plt Count MPV Neut % (Auto) Lymph % (Auto) [place] % (Auto) Eos % (Auto) Baso % (Auto) Lymph # (Auto) [place] # (Auto) Eos # (Auto) Baso # (Auto) Absolute Neuts (auto) PT INR APTT pO2 182 H VBG pH 7.34 VBG pCO2 31.0 L VBG HCO3 16.7 L VBG Total CO2 17.7 L VBG O2 Sat (Calc) 98.9 H VBG Base Excess -7.9 L VBG Potassium 3.6 Glucose 82 Lactate 1.5 FiO2 21.0 Sodium 124 L 123.0 L Potassium 3.7 Chloride 95 L 93.0 L Carbon Dioxide 16 L Anion Gap 17 BUN 20 Creatinine 1.1 Est GFR ( Amer) > 60 Est GFR (Non-Af Amer) > 60 POC Glucose (mg/dL) Random Glucose 117 H Calcium 8.1 L Magnesium 2.3 H Total Bilirubin 0.6 AST 61 H D ALT 27 Alkaline Phosphatase 78 Troponin I < 0.01 NT-Pro-B Natriuret Pep 153 Total Protein 7.2 Albumin 4.1 Globulin 3.1 Albumin/Globulin Ratio 1.3 TSH 3rd Generation 0.35 L Venous Blood Potassium 3.6 Alcohol, Quantitative 270 H Assessment & Plan - Assessment and Plan (Free Text) Assessment: 57yo male PMHx CAD s/p stent 2013, HTN, EtOH abuse, tobacco abuse, and HTN presents with EtOH intoxication and complaints of chest pain. 1. Chest pain r/o ACS 2. Hyponatremia 3. EtOH abuse and withdrawal 4. Hx of CAD s/p 1 stent 2012 5. Hx of HTN 6. Tobacco abuse Plan: Patient admitted to telemetry for further management. In light of complaints of chest pain, serial troponin ordered and patient was given ASA 162mg in the ER. Troponin x 1 was negative and EKG reviewed which showed no acute ST changes. Cardiology consulted. Patient's echo from June 2018 reviewed and unremarkable. Patient's description of "burning" chest pain could be due to gastritis; will order Pepcid 20mg bid at this time. Patient also presented with Na of 124. Hyponatremia likely secondary to inadequate solute intake "beer potomania" (patient had a similar admission in 06/2018) and renal water retention secondary to volume depletion. Patient given fluids in the ER and started on banana bag. Will recheck BMP in 6 hours and monitor urine output. Patient presented with Alcohol level of 270. Patient on CIWA protocol and Ativan 1mg q4 mervat and 1mg q2 prn for withdrawal symptoms. As patient has history of withdrawal symptoms requiring ICU admission in the past, will monitor closely on telemetry. Patient will be started on PO multivitamins, folate, and thiamine in the AM. In light of history of CAD, will continue home medications ASA and Lipitor. Patient on lopressor at home; will continue 12.5mg bid with evening dose. Seizure precautions on board. Smoking cessation ordered and alcohol/drug counseling on board. DVT ppx with SCDs on board. Patient on heart healthy diet. Discussed with Dr. Sandra Lopez PGY3 <Sweta Flores - Last Filed: 10/19/18 11:55> Results - Vital Signs Recent Vital Signs: Last Vital Signs Temp 97.4 F L 10/19/18 06:50 Pulse 85 10/19/18 11:00 Resp 18 10/19/18 11:00 BP 113/71 10/19/18 11:00 Pulse Ox 96 10/19/18 11:00 - Labs Result Diagrams: 10/19/18 07:19 10/19/18 07:19 Labs: Laboratory Results - last 24 hr 10/19/18 10/19/18 10/19/18 06:56 07:19 07:19 WBC 6.7 RBC 3.80 Hgb 12.6 L Hct 35.2 L MCV 92.6 MCH 33.2 MCHC 35.8 RDW 13.6 Plt Count 296 MPV 9.7 Neut % (Auto) 45.6 L Lymph % (Auto) 42.3 H [place] % (Auto) 9.8 H Eos % (Auto) 1.5 Baso % (Auto) 0.8 Lymph # (Auto) 2.8 [place] # (Auto) 0.7 H Eos # (Auto) 0.1 Baso # (Auto) 0.05 Absolute Neuts (auto) 3.04 PT 10.8 INR 0.96 APTT 27.7 pO2 VBG pH VBG pCO2 VBG HCO3 VBG Total CO2 VBG O2 Sat (Calc) VBG Base Excess VBG Potassium Glucose Lactate FiO2 Sodium Potassium Chloride Carbon Dioxide Anion Gap BUN Creatinine Est GFR ( Amer) Est GFR (Non-Af Amer) POC Glucose (mg/dL) 134 H Random Glucose Calcium Magnesium Total Bilirubin AST ALT Alkaline Phosphatase Troponin I NT-Pro-B Natriuret Pep Total Protein Albumin Globulin Albumin/Globulin Ratio TSH 3rd Generation Venous Blood Potassium Urine Opiates Screen Urine Methadone Screen Ur Barbiturates Screen Ur Phencyclidine Scrn Ur Amphetamines Screen U Benzodiazepines Scrn U Oth Cocaine Metabols U Cannabinoids Screen Alcohol, Quantitative 10/19/18 10/19/18 10/19/18 07:19 07:19 07:45 WBC RBC Hgb Hct MCV MCH MCHC RDW Plt Count MPV Neut % (Auto) Lymph % (Auto) [place] % (Auto) Eos % (Auto) Baso % (Auto) Lymph # (Auto) [place] # (Auto) Eos # (Auto) Baso # (Auto) Absolute Neuts (auto) PT INR APTT pO2 182 H VBG pH 7.34 VBG pCO2 31.0 L VBG HCO3 16.7 L VBG Total CO2 17.7 L VBG O2 Sat (Calc) 98.9 H VBG Base Excess -7.9 L VBG Potassium 3.6 Glucose 82 Lactate 1.5 FiO2 21.0 Sodium 124 L 123.0 L Potassium 3.7 Chloride 95 L 93.0 L Carbon Dioxide 16 L Anion Gap 17 BUN 20 Creatinine 1.1 Est GFR ( Amer) > 60 Est GFR (Non-Af Amer) > 60 POC Glucose (mg/dL) Random Glucose 117 H Calcium 8.1 L Magnesium 2.3 H Total Bilirubin 0.6 AST 61 H D ALT 27 Alkaline Phosphatase 78 Troponin I < 0.01 NT-Pro-B Natriuret Pep 153 Total Protein 7.2 Albumin 4.1 Globulin 3.1 Albumin/Globulin Ratio 1.3 TSH 3rd Generation 0.35 L Venous Blood Potassium 3.6 Urine Opiates Screen Urine Methadone Screen Ur Barbiturates Screen Ur Phencyclidine Scrn Ur Amphetamines Screen U Benzodiazepines Scrn U Oth Cocaine Metabols U Cannabinoids Screen Alcohol, Quantitative 270 H 10/19/18 10:00 WBC RBC Hgb Hct MCV MCH MCHC RDW Plt Count MPV Neut % (Auto) Lymph % (Auto) [place] % (Auto) Eos % (Auto) Baso % (Auto) Lymph # (Auto) [place] # (Auto) Eos # (Auto) Baso # (Auto) Absolute Neuts (auto) PT INR APTT pO2 VBG pH VBG pCO2 VBG HCO3 VBG Total CO2 VBG O2 Sat (Calc) VBG Base Excess VBG Potassium Glucose Lactate FiO2 Sodium Potassium Chloride Carbon Dioxide Anion Gap BUN Creatinine Est GFR ( Amer) Est GFR (Non-Af Amer) POC Glucose (mg/dL) Random Glucose Calcium Magnesium Total Bilirubin AST ALT Alkaline Phosphatase Troponin I NT-Pro-B Natriuret Pep Total Protein Albumin Globulin Albumin/Globulin Ratio TSH 3rd Generation Venous Blood Potassium Urine Opiates Screen Negative Urine Methadone Screen Negative Ur Barbiturates Screen Negative Ur Phencyclidine Scrn Negative Ur Amphetamines Screen Negative U Benzodiazepines Scrn Negative U Oth Cocaine Metabols Negative U Cannabinoids Screen Negative Alcohol, Quantitative Attending/Attestation - Attestation I have personally seen and examined this patient.: Yes I have fully participated in the care of the patient.: Yes I have reviewed all pertinent clinical information: Yes Notes (Text): 10/19/18 11:44 57 year old male with past medical history of CAD s/p stent (2012) alcohol abuse, tobacco use and hypertension who presents with alcohol intoxication and complaint of chest pain. Will obtain serial cardiac enzymes to rule out ACS. Cardiology evaluation is requested. Resume home medications including aspirin, statin and metoprolol with BP holding parameters. ETOH level is 270. Will start banana bag with ativan mervat/prn for withdrawal symptoms. He was counselled abstinence. Counselled on smoking cessation. Hyponatremia may be secondary to ETOH abuse / poor po intake. Will give fluids and repeat BMP in afternoon. CT chest also showed thicked walled esophagus. Continue with pepcid. Should fo llow up with GI for endoscopy. Sweta Flores MD Hospitalist.
[2018-10-19] MEDS ORDERED: Multivitamin (MVI) 10 ML, Thiamine 100 MG, Folic Acid 1 MG in Sodium Chloride 0.9% 1,00... IV ONE (09:55)
[2018-10-19 10:47] LABS: BARBITURATES, UR NEGATIVE (NEGATIVE); BENZODIAZEPINES, UR NEGATIVE (NEGATIVE); OPIATES, UR NEGATIVE (NEGATIVE); PHENCYCLIDINE, UR NEGATIVE (NEGATIVE)
--- NOTE | 2018-10-19 13:15 | CARD ---
APPROVED REPORT Date of service: 10/19/2018 EKG Measurement Heart [id number] <Conclusion> Sinus rhythm with 1st degree AV block Clockwise Rotation.
[2018-10-19 13:37] LABS: BLOOD UREA NITROGEN 18 mg/dL (7-21); CALCIUM 8.4 mg/dL (8.4-10.5); GFR NON-AFRICAN AMERICAN > 60
[2018-10-19 14:42] LABS: TROPONIN I 0.01 ng/mL
[2018-10-19 16:59] VITALS: BMI 24.1
[2018-10-19] MEDS ORDERED: Pneumococcal 23-Valent Vaccine IM ONE (17:00)
[2018-10-20 06:52] LABS: BASO # 0.03 {null, K/mm3} (0.0-2.0); BASO % 0.7 % (0.0-3.0); EOS % 0.7 % (1.5-5.0); HEMOGLOBIN 12.4 g/dL (14.0-18.0); LYMPH % 21.8 % (22.0-35.0); MEAN CORPUSCULAR HEMOGLOBIN 32.1 pg (25.0-35.0); MEAN CORPUSCULAR HGB CONC 33.7 g/dl (31.0-37.0); MEAN PLATELET VOLUME 9.9 fl (7.0-11.0); MONO # 0.6 (0.1-0.6); MONO % 13.3 % (1.0-6.0); RBC 3.86 {null, 10^6/uL} (3.5-6.1); RED CELL DISTRIBUTION WIDTH 14.2 % (11.5-14.5); WHITE BLOOD COUNT 4.6 {null, 10^3/uL} (4.5-11.0)
[2018-10-20 07:02] LABS: ALB/GLOB RATIO 1.2 (1.1-1.8); ALT/SGPT 31 U/L (7-56); AST/SGOT 47 U/L (17-59); BLOOD UREA NITROGEN 17 mg/dL (7-21); CALCIUM 8.6 mg/dL (8.4-10.5); GFR NON-AFRICAN AMERICAN > 60
[2018-10-20 07:17] LABS: FREE T4 0.87 ng/dL (0.78-2.19)
[2018-10-20 08:18] LABS: MEAN CELL VOLUME 95.3 fl (80.0-105.0)
[2018-10-20] MEDS ORDERED: Multivitamin With Minerals Tab PO SCH (10:00)
--- NOTE | 2018-10-20 10:06 | CP.PCM.CON ---
<July Adan - Last Filed: 10/20/18 14:48> History of Present Illness - History of Present Illness History of Present Illness: Gastroenterology Fellow/PGY6 Consult Note 57 year old male with PMH of CAD s/p stent 2012, HTN, and alcohol/tobacco abuse complicated by withdrawals with delirium tremens presentation with chest pain. Patient notes discomfort similar to intermittent heartburn and acid reflux that he relates to chronic alcohol abuse for 50 years. Notes worsening of symptoms for last two days with associated epigastric pain. Associated loss of appetite for last three days and notes ten pound unintentional weight loss for the last three weeks. Admits to last alcoholic drink prior to admission. Denies NSAIDs use, nausea, vomiting, hematemesis, diarrhea, constipation, melena, hematochezia, leg swelling, abdominal distension, or yellowing of skin/eyes. No prior EGD or colonoscopy. Family History- denies stomach cancer, colon cancer Social History- daily 1/2-1ppd , daily 12-15 beers over 40 years, started drinking at endorsed age of 7, denies illicit drug use Surgical History- cardiac stent 2013 Review of Systems - Review of Systems Review of Systems: 12-point review of systems negative except for as above Past Patient History - Infectious Disease Hx of Infectious Diseases: None - Tetanus Immunizations Tetanus Immunization: Unknown - Past Social History Smoking Status: Heavy Smoker > 10 Cigarettes Daily - CARDIAC Hx Cardiac Disorders: Yes (a fib, palpitations, cad) Hx Cardia Arrhythmia: Yes Hx Congestive Heart Failure: Yes (Paroxymal Afib) Hx Hypercholesterolemia: Yes Hx Hypertension: Yes Hx Pacemaker: Yes Other/Comment: paroxymal afib, irregular heartbeat - PULMONARY Hx Respiratory Disorders: Yes Hx Asthma: Yes Hx Bronchitis: Yes Hx Chronic Obstructive Pulmonary Disease (COPD): Yes - NEUROLOGICAL Hx Neurological Disorder: Yes (loc) Hx Dizziness: Yes Other/Comment: tremors, syncope,weakness, c/o numbness to r hand 4 and 5th fingers denies numbness to 3rd finger - HEENT Hx HEENT Problems: Yes (eyeglasses) - RENAL Hx Chronic Kidney Disease: No - ENDOCRINE/METABOLIC Hx Endocrine Disorders: No - HEMATOLOGICAL/ONCOLOGICAL Hx Blood Disorders: Yes Other/Comment: hyponatremia - INTEGUMENTARY Hx Dermatological Problems: Yes Other/Comment: skin flushed, indentation on skin r hand between thumb and forrefinger cause unknown, layer of skin peeled off bottom right foot from ball of foot to all toes exposed skin red, layer of skin peeled off 3/4's bottom of left foot from arch to toes exposed skin is red, multiple areas of peeled skin to top of left foot, cause unknown, multiple scars to chest and ivan from cuts when pt in [place], b/l feet dry toenails, tatoo top of right foot, red buttocks, 1 cm round abrasion right knee, red discolored healing bruises both knees, dry skin both hands and layor of skin peeled off both thumbs, slight redness to exposed skin, dry skin both feet - MUSCULOSKELETAL/RHEUMATOLOGICAL Hx Musculoskeletal Disorders: Yes Hx Falls: Yes (recently 1 week ago) Hx Fractures: Yes (jaw from boxing) Hx Rhabdomyolysis: Yes Hx Unsteady Gait: Yes - GASTROINTESTINAL Hx Gastrointestinal Disorders: Yes (gi bleed) - GENITOURINARY/GYNECOLOGICAL Hx Genitourinary Disorders: No - PSYCHIATRIC Hx Psychophysiologic Disorder: Yes (hx alcohol w/d) Hx Anxiety: Yes Hx Depression: Yes Hx Hallucinations: Yes (on and off x1 week) Hx Panic Symptoms: Yes Hx Substance Use: No Other/Comment: delirium, admits to drinking 24 houirs a day 7 days a week x1 month beer, "maybe 6 cans in day and 3 cans at night, I can't sleep" - SURGICAL HISTORY Hx Surgeries: Yes Hx Cardiac Catheterization: Yes (x1 2011) Hx Coronary Stent: Yes Other/Comment: forehead laceration repair 07/16 2012, cardiac stent - ANESTHESIA Hx Anesthesia: Yes Hx Anesthesia Reactions: No Hx Malignant Hyperthermia: No Meds Allergies/Adverse Reactions: Allergies Allergy/AdvReac Type Severity Reaction Status Date / Time No Known Allergies Allergy Verified 04/06/18 19:54 - Medications Medications: Current Medications Aspirin (Ecotrin) 81 mg PO DAILY [facility] Last Admin: 10/20/18 09:12 Dose: 81 mg Atorvastatin Calcium (Lipitor) 20 mg PO DIN [facility] Last Admin: 10/19/18 17:49 Dose: 20 mg Famotidine (Pepcid) 20 mg PO BID [facility] Last Admin: 10/20/18 09:12 Dose: 20 mg Folic Acid (Folic Acid) 1 mg PO DAILY [facility] Last Admin: 10/20/18 09:12 Dose: 1 mg Lorazepam (Ativan) 1 mg IVP Q2 PRN; Protocol PRN Reason: Symptoms of alcohol withdrawl Last Admin: 10/20/18 09:12 Dose: 1 mg Lorazepam (Ativan) 1 mg IVP Q4H [facility]; Protocol Last Admin: 10/20/18 08:36 Dose: Not Given Metoprolol Tartrate (Lopressor) 12.5 mg PO BID [facility] Last Admin: 10/20/18 09:12 Dose: 12.5 mg Multivitamins/Minerals (Therapeutic-M Tab) 1 tab PO DAILY [facility] Last Admin: 10/20/18 09:12 Dose: 1 tab Ondansetron HCl (Zofran Inj) 4 mg IVP Q6H PRN PRN Reason: Nausea/Vomiting Thiamine HCl (Vitamin B1 Tab) 100 mg PO DAILY [facility] Last Admin: 10/20/18 09:13 Dose: 100 mg Physical Exam - Constitutional Appears: Non-toxic, No Acute Distress - Head Exam Head Exam: ATRAUMATIC, NORMOCEPHALIC - Eye Exam Eye Exam: EOMI, PERRL. absent: Scleral icterus Pupil Exam: PERRL. absent: Miosis, Mydriatic - ENT Exam ENT Exam: Mucous Membranes Moist, Normal Oropharynx - Neck Exam Neck exam: Positive for: Full Rom, Normal Inspection - Respiratory Exam Respiratory Exam: Clear to Auscultation Bilateral. absent: Rales, Rhonchi, Wheezes - Cardiovascular Exam Cardiovascular Exam: RRR, +S1, +S2. absent: Gallop, Rubs - GI/Abdominal Exam GI & Abdominal Exam: Normal Bowel Sounds, Soft, Tenderness. absent: Distended, Firm, Guarding, Organomegaly, Rebound, Rigid Additional comments: mild epigastric tenderness to palpation - Extremities Exam Extremities exam: Positive for: normal inspection - Neurological Exam Neurological exam: Alert - Psychiatric Exam Psychiatric exam: Normal Affect, Normal Mood - Skin Skin Exam: Dry, Intact, Normal Color, Warm Results - Vital Signs Recent Vital Signs: Last Vital Signs Temp 99.1 F 10/20/18 06:00 Pulse 99 H 10/20/18 06:00 Resp 18 10/20/18 06:00 BP 155/89 H 10/20/18 06:00 Pulse Ox 95 10/20/18 06:00 - Labs Result Diagrams: 10/20/18 08:00 10/20/18 06:20 Labs: Laboratory Results - last 24 hr 10/19/18 10/19/18 10/19/18 10:00 13:00 19:39 WBC RBC Hgb Hct MCV MCH MCHC RDW Plt Count MPV Neut % (Auto) Lymph % (Auto) [place] % (Auto) Eos % (Auto) Baso % (Auto) Lymph # (Auto) [place] # (Auto) Eos # (Auto) Baso # (Auto) Absolute Neuts (auto) Sodium 134 Potassium 4.3 Chloride 104 Carbon Dioxide 20 L Anion Gap 14 BUN 18 Creatinine 0.9 Est GFR ( Amer) > 60 Est GFR (Non-Af Amer) > 60 Random Glucose 81 Calcium 8.4 Phosphorus Magnesium Total Bilirubin AST ALT Alkaline Phosphatase Troponin I 0.01 < 0.01 Total Protein Albumin Globulin Albumin/Globulin Ratio Free T4 TSH 3rd Generation Urine Opiates Screen Negative Urine Methadone Screen Negative Ur Barbiturates Screen Negative Ur Phencyclidine Scrn Negative Ur Amphetamines Screen Negative U Benzodiazepines Scrn Negative U Oth Cocaine Metabols Negative U Cannabinoids Screen Negative 10/20/18 10/20/18 10/20/18 06:20 06:20 08:00 WBC 4.6 D RBC 3.86 Hgb 12.4 L Hct 36.8 L MCV 95.3 MCH 32.1 MCHC 33.7 RDW 14.2 Plt Count 233 MPV 9.9 Neut % (Auto) 63.5 Lymph % (Auto) 21.8 L [place] % (Auto) 13.3 H Eos % (Auto) 0.7 L Baso % (Auto) 0.7 Lymph # (Auto) 1.0 L [place] # (Auto) 0.6 Eos # (Auto) 0.0 Baso # (Auto) 0.03 Absolute Neuts (auto) 2.91 Sodium 136 Potassium 3.6 Chloride 108 H Carbon Dioxide 22 Anion Gap 9 L BUN 17 Creatinine 0.8 Est GFR ( Amer) > 60 Est GFR (Non-Af Amer) > 60 Random Glucose 90 Calcium 8.6 Phosphorus 3.0 Magnesium 2.4 H Total Bilirubin 1.0 AST 47 ALT 31 Alkaline Phosphatase 75 Troponin I Total Protein 7.3 Albumin 4.0 Globulin 3.3 Albumin/Globulin Ratio 1.2 Free T4 0.87 TSH 3rd Generation 0.61 Urine Opiates Screen Urine Methadone Screen Ur Barbiturates Screen Ur Phencyclidine Scrn Ur Amphetamines Screen U Benzodiazepines Scrn U Oth Cocaine Metabols U Cannabinoids Screen Assessment & Plan - Assessment and Plan (Free Text) Assessment: 57 year old male with PMH of CAD s/p stent 2013, HTN, and alcohol/tobacco abuse complicated by withdrawals with delirium tremens presentation with chest pain. Active treatment of chest pain in setting of alcohol intoxication with history of chronic alcohol abuse for 50 years. GI consultation for thickening of distal esophagus on CT chest. No prior EGD or colonoscopy. Plan: -CT chest- visualized esophagus noted to have thickening, small hiatal hernia -ordered CT A/P to evaluate for intra-abdominal pathology given unintentional weight loss -ordered lipase to rule out pancreatitis -started PPI BID for dyspepsia -on [facility] protocol for alcohol intoxication -counselled on alcohol and tobacco cessation -follow up cardiology recommendations given history of CAD with prior stent p lacement -will benefit from endoscopic evaluation, timing to be determined in setting of alcohol withdrawal, review of cross-sectional imaging, cardiology recommendations, and re-evaluation of dyspe psia symptoms in the morning -will follow clinical course <Ernesto Brown - Last Filed: 10/20/18 19:08> Meds - Medications Medications: Current Medications Aspirin (Ecotrin) 81 mg PO DAILY [facility] Last Admin: 10/20/18 09:12 Dose: 81 mg Atorvastatin Calcium (Lipitor) 20 mg PO DIN [facility] Last Admin: 10/20/18 16:56 Dose: 20 mg Folic Acid (Folic Acid) 1 mg PO DAILY [facility] Last Admin: 10/20/18 09:12 Dose: 1 mg Lorazepam (Ativan) 1 mg IVP Q2 PRN; Protocol PRN Reason: Symptoms of alcohol withdrawl Last Admin: 10/20/18 09:12 Dose: 1 mg Lorazepam (Ativan) 1 mg IVP Q4H [facility]; Protocol Last Admin: 10/20/18 16:55 Dose: 1 mg Metoprolol Tartrate (Lopressor) 12.5 mg PO BID [facility] Last Admin: 10/20/18 16:59 Dose: 12.5 mg Multivitamins/Minerals (Therapeutic-M Tab) 1 tab PO DAILY [facility] Last Admin: 10/20/18 09:12 Dose: 1 tab Ondansetron HCl (Zofran Inj) 4 mg IVP Q6H PRN PRN Reason: Nausea/Vomiting Pantoprazole Sodium (Protonix Ec Tab) 40 mg PO 0600,1600 [facility] Last Admin: 10/20/18 16:56 Dose: 40 mg Thiamine HCl (Vitamin B1 Tab) 100 mg PO DAILY [facility] Last Admin: 10/20/18 09:13 Dose: 100 mg Results - Vital Signs Recent Vital Signs: Last Vital Signs Temp 98.4 F 10/20/18 16:33 Pulse 84 10/20/18 18:00 Resp 19 10/20/18 16:33 BP 151/85 H 10/20/18 16:33 Pulse Ox 97 10/20/18 16:33 - Labs Result Diagrams: 10/20/18 08:00 10/20/18 06:20 Labs: Laboratory Results - last 24 hr 10/19/18 10/20/18 10/20/18 19:39 06:20 06:20 WBC RBC Hgb Hct MCV MCH MCHC RDW Plt Count MPV Neut % (Auto) Lymph % (Auto) [place] % (Auto) Eos % (Auto) Baso % (Auto) Lymph # (Auto) [place] # (Auto) Eos # (Auto) Baso # (Auto) Absolute Neuts (auto) Sodium 136 Potassium 3.6 Chloride 108 H Carbon Dioxide 22 Anion Gap 9 L BUN 17 Creatinine 0.8 Est GFR ( Amer) > 60 Est GFR (Non-Af Amer) > 60 Random Glucose 90 Calcium 8.6 Phosphorus 3.0 Magnesium 2.4 H Total Bilirubin 1.0 AST 47 ALT 31 Alkaline Phosphatase 75 Troponin I < 0.01 Total Protein 7.3 Albumin 4.0 Globulin 3.3 Albumin/Globulin Ratio 1.2 Lipase Free T4 0.87 TSH 3rd Generation 0.61 10/20/18 10/20/18 08:00 10:30 WBC 4.6 D RBC 3.86 Hgb 12.4 L Hct 36.8 L MCV 95.3 MCH 32.1 MCHC 33.7 RDW 14.2 Plt Count 233 MPV 9.9 Neut % (Auto) 63.5 Lymph % (Auto) 21.8 L [place] % (Auto) 13.3 H Eos % (Auto) 0.7 L Baso % (Auto) 0.7 Lymph # (Auto) 1.0 L [place] # (Auto) 0.6 Eos # (Auto) 0.0 Baso # (Auto) 0.03 Absolute Neuts (auto) 2.91 Sodium Potassium Chloride Carbon Dioxide Anion Gap BUN Creatinine Est GFR ( Amer) Est GFR (Non-Af Amer) Random Glucose Calcium Phosphorus Magnesium Total Bilirubin AST ALT Alkaline Phosphatase Troponin I Total Protein Albumin Globulin Albumin/Globulin Ratio Lipase 534 H Free T4 TSH 3rd Generation Attending/Attestation - Attestation I have fully participated in the care of the patient.: Yes I have reviewed all pertinent clinical information: Yes Notes (Text): 10/20/18 19:06 CAD s/p stent HTN ETOH abuse, acute intoxication Chest pain Heartburn Abnormal CT imaging showing irregular thickening of distal esophagus - Diet as tolerated - Continue with PPI therapy - Obtain CT imaging of abdomen/pelvis given complaint of unintentional weight loss - Monitor for signs of ETOH withdrawal - Follow up cardiology recommendations - Pending imaging results, would consider possible EGD for further evaluation of irregular distal esophageal findings on CT. NPO after midnight.
[2018-10-20] MEDS ORDERED: Barium Sulfate Susp 2.1% w/v, 2.0% w/w 450 mL Bottle PO ONE (10:21)
[2018-10-20] MEDS ORDERED: Iohexol 350 MG/100 ML VIAL ONE (10:22)
--- NOTE | 2018-10-20 15:04 | CP.PCM.PN ---
<Parth Lynne - Last Filed: 10/20/18 15:20> Subjective - Date & Time of Evaluation Date of Evaluation: 10/20/18 Time of Evaluation: 08:00 - Subjective Subjective: Parth Lynne PGY1 Medicine Progress Note for Dr. Flores Patient seen at bedside this morning. Overnight, CIWA score was minimal. Patient denies headache, fever, chills, fatigue, n/v/d. Vital signs are stable at this time. A full 12 point ROS was conducted and unremarkable except as stated above. Objective - Vital Signs/Intake and Output Vital Signs (last 24 hours): Temp Pulse Resp BP Pulse Ox 99.1 F 80 18 155/89 H 95 10/20/18 06:00 10/20/18 14:00 10/20/18 06:00 10/20/18 06:00 10/20/18 06:00 - Medications Medications: Current Medications Aspirin (Ecotrin) 81 mg PO DAILY [facility] Last Admin: 10/20/18 09:12 Dose: 81 mg Atorvastatin Calcium (Lipitor) 20 mg PO DIN [facility] Last Admin: 10/19/18 17:49 Dose: 20 mg Folic Acid (Folic Acid) 1 mg PO DAILY [facility] Last Admin: 10/20/18 09:12 Dose: 1 mg Lorazepam (Ativan) 1 mg IVP Q2 PRN; Protocol PRN Reason: Symptoms of alcohol withdrawl Last Admin: 10/20/18 09:12 Dose: 1 mg Lorazepam (Ativan) 1 mg IVP Q4H [facility]; Protocol Last Admin: 10/20/18 13:11 Dose: 1 mg Metoprolol Tartrate (Lopressor) 12.5 mg PO BID [facility] Last Admin: 10/20/18 09:12 Dose: 12.5 mg Multivitamins/Minerals (Therapeutic-M Tab) 1 tab PO DAILY [facility] Last Admin: 10/20/18 09:12 Dose: 1 tab Ondansetron HCl (Zofran Inj) 4 mg IVP Q6H PRN PRN Reason: Nausea/Vomiting Pantoprazole Sodium (Protonix Ec Tab) 40 mg PO 0600,1600 [facility] Thiamine HCl (Vitamin B1 Tab) 100 mg PO DAILY [facility] Last Admin: 10/20/18 09:13 Dose: 100 mg - Labs Labs: 10/20/18 08:00 10/20/18 06:20 PT 10.8 SECONDS (9.4-12.5) 10/19/18 07:19 INR 0.96 10/19/18 07:19 APTT 27.7 Seconds (26.9-38.3) 10/19/18 07:19 - Constitutional Appears: No Acute Distress, Unkempt - Head Exam Head Exam: ATRAUMATIC, NORMAL INSPECTION, NORMOCEPHALIC - Eye Exam Eye Exam: EOMI, Normal appearance, PERRL. absent: Conjunctival injection, Scleral icterus Pupil Exam: NORMAL ACCOMODATION - ENT Exam ENT Exam: Mucous Membranes Dry - Neck Exam Neck exam: Positive for: Full Rom, Normal Inspection. Negative for: Lymphadenopathy - Respiratory Exam Respiratory Exam: Clear to Auscultation Bilateral, NORMAL BREATHING PATTERN. absent: Accessory Muscle Use, Rales, Rhonchi, Wheezes, Respiratory Distress - Cardiovascular Exam Cardiovascular Exam: +S1, +S2. absent: Systolic Murmur - GI/Abdominal Exam GI & Abdominal Exam: Normal Bowel Sounds, Soft. absent: Firm, Guarding, Rigid, Tenderness - Extremities Exam Extremities exam: Positive for: normal capillary refill, normal inspection, pedal pulses present. Negative for: pedal edema - Back Exam Back exam: NORMAL INSPECTION. absent: rash noted, tenderness - Neurological Exam Neurological exam: Alert, CN II-XII Intact, Oriented x3 - Psychiatric Exam Psychiatric exam: Normal Affect, Normal Mood - Skin Skin Exam: Dry, Intact, Normal Color, Warm Assessment and Plan - Assessment and Plan (Free Text) Assessment: Patient is a 57yo male PMHx CAD s/p stent 2012, HTN, EtOH abuse, tobacco abuse, and HTN who presented with EtOH intoxication and chest pain. Plan: Chest pain r/o ACS - troponins negative x3 - EKG: NSR with 1st degree AV block - Cardio on consult (Dr. Schuster). Recs appreciated. No further intervention. - CT Chest: no PE. However, portion of esophagus is thick walled - suggest further evaluation with endoscopy. GERD - GI consulted for esophageal thickening. Recs appreciated. - As per GI, patient may benefit from EGD. Patient is cleared by cardio for procedure. - GI ordered CT A/P to evaluate for further intra-abdominal pathology - c/w PPI BID - c/w zofran prn for nausea EtOH abuse and withdrawal - [facility]INE protocol - ativan 1mg IV q2 prn and 2mg IV q4 scd - mv, thiamine, folic acid - counseled on cessation - UDS negative - EtOH 270 Hyponatremia - improved - Na resolved to normal with IVF - Initial Na 124 on admission - monitor CAD s/p 1 stent 2012 - c/w aspirin 81mg PO daily HTN - Lopressor 12,5 mg PO BID [facility] - c/w lipitor 20mg HS Tobacco abuse - Educated on cessation PPx: - PTX Diet: NPO Dispo: Continue to monitor on med/surg at this time. Possible endoscopy tomorrow as per GI. Continue to monitor EtOH withdrawal. Case was discussed and reviewed with Attending Physician, Dr. Flores <Sweta Flores - Last Filed: 10/20/18 15:40> Objective - Vital Signs/Intake and Output Vital Signs (last 24 hours): Temp Pulse Resp BP Pulse Ox 99.1 F 80 18 155/89 H 95 10/20/18 06:00 10/20/18 14:00 10/20/18 06:00 10/20/18 06:00 10/20/18 06:00 - Medications Medications: Current Medications Aspirin (Ecotrin) 81 mg PO DAILY [facility] Last Admin: 10/20/18 09:12 Dose: 81 mg Atorvastatin Calcium (Lipitor) 20 mg PO DIN [facility] Last Admin: 10/19/18 17:49 Dose: 20 mg Folic Acid (Folic Acid) 1 mg PO DAILY [facility] Last Admin: 10/20/18 09:12 Dose: 1 mg Lorazepam (Ativan) 1 mg IVP Q2 PRN; Protocol PRN Reason: Symptoms of alcohol withdrawl Last Admin: 10/20/18 09:12 Dose: 1 mg Lorazepam (Ativan) 1 mg IVP Q4H [facility]; Protocol Last Admin: 10/20/18 13:11 Dose: 1 mg Metoprolol Tartrate (Lopressor) 12.5 mg PO BID [facility] Last Admin: 10/20/18 09:12 Dose: 12.5 mg Multivitamins/Minerals (Therapeutic-M Tab) 1 tab PO DAILY [facility] Last Admin: 10/20/18 09:12 Dose: 1 tab Ondansetron HCl (Zofran Inj) 4 mg IVP Q6H PRN PRN Reason: Nausea/Vomiting Pantoprazole Sodium (Protonix Ec Tab) 40 mg PO 0600,1600 [facility] Thiamine HCl (Vitamin B1 Tab) 100 mg PO DAILY [facility] Last Admin: 10/20/18 09:13 Dose: 100 mg - Labs Labs: 10/20/18 08:00 10/20/18 06:20 PT 10.8 SECONDS (9.4-12.5) 10/19/18 07:19 INR 0.96 10/19/18 07:19 APTT 27.7 Seconds (26.9-38.3) 10/19/18 07:19 Attending/Attestation - Attestation I have personally seen and examined this patient.: Yes I have fully participated in the care of the patient.: Yes I have reviewed all pertinent clinical information, including history, physical exam and plan: Yes Notes (Text): 10/20/18 15:39 57 year old male with past medical history of CAD s/p stent (2012) alcohol abuse, tobacco use and hypertension who presented with alcohol intoxication and complaint of chest pain. Serial cardiac enzymes were negative and ACS was ruled out. Cardiology evaluation was appreciated. Continue with aspirin, statin and metoprolol. He received banana bag and is on ativan mervat/prn for withdrawal symptoms. He was counselled abstinence. Counselled on smoking cessation. Hypo natremia resolved. CT chest also showed thicked walled esophagus. Continue with protonix bid. Pending CT abd/pelvis. May benefit from EGD as per GI. Sweta Flores MD Hospitalist.
[2018-10-20] MEDS: Pantoprazole 40 mg EC Tab PO SCH (16:56)
--- NOTE | 2018-10-20 22:01 | CON ---
DATE OF CONSULTATION: 10/20/2018 REASON FOR CONSULTATION: Chest pain. HISTORY OF PRESENT ILLNESS: The patient is a 57-year-old male who, according to him, has a history of coronary artery disease with history of coronary artery stenting some 5 years ago, presented to the hospital with alcohol intoxication, seeking rehab. The patient subsequently reports chest pain. At the time of my evaluation, the patient was chest pain free. SOCIAL HISTORY: The patient is smoker and drinker. MEDICATIONS: Ativan 1 mg intravenously every 2 hours p.r.n., aspirin 81 mg once a day, Lipitor 20 mg once a day, Lopressor 12.5 mg twice a day, thiamine 100 mg once a day. REVIEW OF SYSTEMS: No nausea or vomiting. No fever or chills. PHYSICAL EXAMINATION: GENERAL: The patient is a middle-aged male who does not appear to be in any distress. VITAL SIGNS: Blood pressure 155/89, heart rate 99, temperature 99.1, respirations 18. HEENT: Normocephalic. CHEST: Clear. HEART: S1 and S2 regular. EXTREMITIES: Trace pedal edema. LABORATORY DATA: Today's hemoglobin and hematocrit are 12.4 and 36.8. White count and platelet count are within normal limits. Today's SMA-7 is within normal limits except for anion gap of 9 and chloride of 108. Three sets of troponin are not in the elevated range. EKG revealed sinus rhythm with first-degree AV block, otherwise unremarkable. Alcohol level is 270. On admission, urine drug screen is negative. Cardiac catheterization in 01/2012, the patient underwent successful PCI to the right coronary artery with bare metal stents. ASSESSMENT: 1. Chest pain, myocardial function is ruled out. 2. Status post alcohol intoxication. 3. History of coronary artery disease with right coronary artery stenting in 01/2012. RECOMMENDATIONS: Continue current aspirin 81 mg once a day, Lipitor 20 mg once a day, Lopressor 12.5 mg once a day and thiamine 100 mg once a day. The patient can be transferred to alcohol rehab from the cardiac point of view. Adrián Schuster MD [facility] # [id number]
[2018-10-21] MEDS: Pantoprazole 40 mg EC Tab PO SCH (05:58)
[2018-10-21 06:27] LABS: BASO # 0.05 {null, K/mm3} (0.0-2.0); BASO % 1.2 % (0.0-3.0); EOS # 0.1 (0.0-0.7); EOS % 2.4 % (1.5-5.0); HEMOGLOBIN 11.7 g/dL (14.0-18.0); LYMPH # 1.3 (1.2-3.4); LYMPH % 31.3 % (22.0-35.0); MEAN CELL VOLUME 96.7 fl (80.0-105.0); MEAN CORPUSCULAR HEMOGLOBIN 32.3 pg (25.0-35.0); MEAN CORPUSCULAR HGB CONC 33.4 g/dl (31.0-37.0); MEAN PLATELET VOLUME 10.1 fl (7.0-11.0); MONO # 0.6 (0.1-0.6); MONO % 14.8 % (1.0-6.0); RBC 3.62 {null, 10^6/uL} (3.5-6.1); WHITE BLOOD COUNT 4.1 {null, 10^3/uL} (4.5-11.0)
[2018-10-21 06:37] LABS: ALB/GLOB RATIO 1.3 (1.1-1.8); ALBUMIN 4.1 g/dL (3.0-4.8); ALT/SGPT 17 U/L (7-56); AST/SGOT 44 U/L (17-59); BLOOD UREA NITROGEN 13 mg/dL (7-21); CALCIUM 8.7 mg/dL (8.4-10.5); GFR NON-AFRICAN AMERICAN > 60
[2018-10-21 10:53] VITALS: TEMP 98.1
[2018-10-21] MEDS ORDERED: Sodium Chloride 0.9% 1,000 ML IV SCH (11:00)
[2018-10-21] MEDS ORDERED: Propofol 10 mg/ml Inj (20 ML) ONE ×2 (11:00→11:04)
--- NOTE | 2018-10-21 11:30 | CP.PCM.DIS ---
<Aurelia Lopez - Last Filed: 10/21/18 14:22> Provider - Provider Date of Admission: 10/19/18 09:52 Attending physician: Sweta Flores MD Primary care physician: Dr. 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: cp hyponatremia Physician Instructions: Reason For Exam: assess Respiratory Therapy Referral Routine Comment: smoker Physician Instructions: Reason For Exam: assess Transition In Care/Readmission Reduction Routine Comment: chest pain/ hyponatremia Physician Instructions: Reason For Exam: assess Time Spent in preparation of Discharge (in minutes): 45 Hospital Course - Lab Results Lab Results: Most Recent Lab Values WBC 4.1 10^3/uL (4.5-11.0) L 10/21/18 06:00 RBC 3.62 10^6/uL (3.5-6.1) 10/21/18 06:00 Hgb 11.7 g/dL (14.0-18.0) L 10/21/18 06:00 Hct 35.0 % (42.0-52.0) L 10/21/18 06:00 MCV 96.7 fl (80.0-105.0) 10/21/18 06:00 MCH 32.3 pg (25.0-35.0) 10/21/18 06:00 MCHC 33.4 g/dl (31.0-37.0) 10/21/18 06:00 RDW 14.0 % (11.5-14.5) 10/21/18 06:00 Plt Count 221 10^3/uL (120.0-450.0) 10/21/18 06:00 MPV 10.1 fl (7.0-11.0) 10/21/18 06:00 Neut % (Auto) 50.3 % (50.0-68.0) 10/21/18 06:00 Lymph % (Auto) 31.3 % (22.0-35.0) 10/21/18 06:00 [place] % (Auto) 14.8 % (1.0-6.0) H 10/21/18 06:00 Eos % (Auto) 2.4 % (1.5-5.0) 10/21/18 06:00 Baso % (Auto) 1.2 % (0.0-3.0) 10/21/18 06:00 Lymph # (Auto) 1.3 (1.2-3.4) 10/21/18 06:00 [place] # (Auto) 0.6 (0.1-0.6) 10/21/18 06:00 Eos # (Auto) 0.1 (0.0-0.7) 10/21/18 06:00 Baso # (Auto) 0.05 K/mm3 (0.0-2.0) 10/21/18 06:00 Absolute Neuts (auto) 2.07 (1.4-6.5) 10/21/18 06:00 PT 10.8 SECONDS (9.4-12.5) 10/19/18 07:19 INR 0.96 10/19/18 07:19 APTT 27.7 Seconds (26.9-38.3) 10/19/18 07:19 pO2 182 mm/Hg (30-55) H 10/19/18 07:45 VBG pH 7.34 (7.32-7.43) 10/19/18 07:45 VBG pCO2 31.0 (40-60) L 10/19/18 07:45 VBG HCO3 16.7 mmol/l (21-28) L 10/19/18 07:45 VBG Total CO2 17.7 mmol.L (22-28) L 10/19/18 07:45 VBG O2 Sat (Calc) 98.9 % (40-65) H 10/19/18 07:45 VBG Base Excess -7.9 mmol/L (0.0-2.0) L 10/19/18 07:45 VBG Potassium 3.6 mmol/L (3.6-5.2) 10/19/18 07:45 Sodium 123.0 mmol/L (132-148) L 10/19/18 07:45 Chloride 93.0 mmol/L (98-107) L 10/19/18 07:45 Glucose 82 mg/dl (75-110) 10/19/18 07:45 Lactate 1.5 mmol/L (0.7-2.1) 10/19/18 07:45 FiO2 21.0 % 10/19/18 07:45 Sodium 138 mmol/L (132-148) 10/21/18 06:00 Potassium 3.8 mmol/L (3.6-5.0) 10/21/18 06:00 Chloride 105 mmol/L (98-107) 10/21/18 06:00 Carbon Dioxide 24 mmol/L (21-33) 10/21/18 06:00 Anion Gap 13 (10-20) 10/21/18 06:00 BUN 13 mg/dL (7-21) 10/21/18 06:00 Creatinine 0.8 mg/dl (0.8-1.5) 10/21/18 06:00 Est GFR ( Amer) > 60 10/21/18 06:00 Est GFR (Non-Af Amer) > 60 10/21/18 06:00 POC Glucose (mg/dL) 134 mg/dL (65-110) H 10/19/18 06:56 Random Glucose 95 mg/dL (70-110) 10/21/18 06:00 Calcium 8.7 mg/dL (8.4-10.5) 10/21/18 06:00 Phosphorus 3.0 mg/dL (2.5-4.5) 10/20/18 06:20 Magnesium 2.4 mg/dL (1.7-2.2) H 10/20/18 06:20 Total Bilirubin 0.7 mg/dL (0.2-1.3) 10/21/18 06:00 AST 44 U/L (17-59) 10/21/18 06:00 ALT 17 U/L (7-56) 10/21/18 06:00 Alkaline Phosphatase 70 U/L (38-126) 10/21/18 06:00 Troponin I < 0.01 ng/mL 10/19/18 19:39 NT-Pro-B Natriuret Pep 153 pg/mL (0-450) 10/19/18 07:19 Total Protein 7.2 g/dL (5.8-8.3) 10/21/18 06:00 Albumin 4.1 g/dL (3.0-4.8) 10/21/18 06:00 Globulin 3.2 gm/dL 10/21/18 06:00 Albumin/Globulin Ratio 1.3 (1.1-1.8) 10/21/18 06:00 Lipase 534 U/L (23-300) H 10/20/18 10:30 Free T4 0.87 ng/dL (0.78-2.19) 10/20/18 06:20 TSH 3rd Generation 0.61 mIU/mL (0.46-4.68) 10/20/18 06:20 Venous Blood Potassium 3.6 mmol/L (3.6-5.2) 10/19/18 07:45 Urine Opiates Screen Negative (NEGATIVE) 10/19/18 10:00 Urine Methadone Screen Negative (NEGATIVE) 10/19/18 10:00 Ur Barbiturates Screen Negative (NEGATIVE) 10/19/18 10:00 Ur Phencyclidine Scrn Negative (NEGATIVE) 10/19/18 10:00 Ur Amphetamines Screen Negative (NEGATIVE) 10/19/18 10:00 U Benzodiazepines Scrn Negative (NEGATIVE) 10/19/18 10:00 U Oth Cocaine Metabols Negative (NEGATIVE) 10/19/18 10:00 U Cannabinoids Screen Negative (NEGATIVE) 10/19/18 10:00 Alcohol, Quantitative 270 mg/dL (0-10) H 10/19/18 07:19 - Hospital Course Hospital Course: Upon Admission 57yo male PMHx CAD s/p stent 2013, HTN, EtOH abuse, tobacco abuse, and HTN p resents with EtOH intoxication and complaints of chest pain. Patient reported the chest pain felt like a burning sensation in the middle of his chest and did not radiate to either arms or his jaw. He denied any dyspnea at rest/exertion and denied any palpitations. He did admit to headaches, dizziness, nonproductive cough, nausea, and diarrhea. Patient denied any vomiting, constipation, b/l LE pain/swelling. He reports having had EtOH withdrawal in the past and is worried that he will withdraw tomorrow; he reports usually having visual hallucinations and tremors on withdrawal. Patient also voiced concern about his drinking and tobacco use and stated he is determined that upon discharge from the hospital on this admission he will abstain. Hospital Course Patient admitted to telemetry for further management. In light of complaints of chest pain, serial troponin ordered and patient was given ASA 162mg in the ER. Troponin x 3 was negative and EKG reviewed which showed no acute ST changes. Cardiology consulted. Patient's echo from June 2018 reviewed and unremarkable. Patient's description of "burning" chest pain could be due to gastritis; ordered Pepcid 20mg bid. In light of CT findings of thick walled esophagus patient's presentation of gastritis-like symptoms with risk factors [tobacco abuse and EtOH abuse], GI Dr. Brown consulted for evaluation. Patient had a CT Abd/pelvis which was unremarkable and was taken for EGD. EGD showed gastritis and patient was started on Pepcid 20mg bid and recommended for outpatient follow up with GI for biopsy results. Patient had also presented with Na of 124. Hyponatremia likely secondary to inadequate solute intake "beer potomania" (patient had a similar admission in 06/2018) and renal water retention secondary to volume depletion. Patient given fluids in the ER and started on banana bag. Follow up BMP was wnl. Patient presented with Alcohol level of 270. Patient on CIWA protocol and Ativan 1mg q4 mervat and 1mg q2 prn for withdrawal symptoms. Patient was also started on PO multivitamins, folate, and thiamine. In light of history of CAD, home medications ASA and Lipitor were continued. Seizure precautions on board. Smoking cessation ordered and alcohol/drug counseling was given. Throughout hospital course patient clinically improved and on day of discharge patient was medically optimized for discharge home with outpatient follow up. Discharge Instructions - Please follow up with your PMD Dr. Victor within 7 days of discharge and GI Dr. Brown within 10-14 days of discharge. - Please take the following medications as prescribed: Pepcid 20mg 1 tab by mouth twice a day ASA 81mg 1 tab by mouth daily Folic acid 1 tab by mouth daily Thiamine 1 tab by mouth daily Multivitamin 1 tab by mouth daily Simvastatin 40mg 1 tab by mouth daily Norvasc 10mg 1 tab by mouth daily Lopressor 12.5mg 1 tab by mouth twice a day - Please do NOT resume your home dose of Lopressor or your Diovan. - Please abstain from drinking alcohol. - Please return to the nearest emergency department if your symptoms worsen or reoccur. Patient expressed understanding and agreement with discharge plan and instructions. Discharge Exam - Additional Findings Additional findings: - Constitutional Appears: No Acute Distress, Unkempt - Head Exam Head Exam: ATRAUMATIC, NORMAL INSPECTION, NORMOCEPHALIC - Eye Exam Eye Exam: EOMI, Normal appearance, PERRL. absent: Conjunctival injection, Scleral icterus Pupil Exam: NORMAL ACCOMODATION - ENT Exam ENT Exam: Mucous Membranes Dry - Neck Exam Neck exam: Positive for: Full Rom, Normal Inspection. Negative for: Lymphadeno александр - Respiratory Exam Respiratory Exam: Clear to Auscultation Bilateral, NORMAL BREATHING PATTERN. absent: Accessory Muscle Use, Rales, Rhonchi, Wheezes, Respiratory Distress - Cardiovascular Exam Cardiovascular Exam: +S1, +S2. absent: Systolic Murmur - GI/Abdominal Exam GI & Abdominal Exam: Normal Bowel Sounds, Soft. absent: Firm, Guarding, Rigid, Tenderness - Extremities Exam Extremities exam: Positive for: normal capillary refill, normal inspection, pedal pulses present. Negative for: pedal edema - Back Exam Back exam: NORMAL INSPECTION. absent: rash noted, tenderness - Neurological Exam Neurological exam: Alert, CN II-XII Intact, Oriented x3 - Psychiatric Exam Psychiatric exam: Normal Affect, Normal Mood - Skin Skin Exam: Dry, Intact, Normal Color, Warm Discharge Plan - Discharge Medications Prescriptions: amLODIPine [Norvasc] 10 mg PO DAILY #14 tab Aspirin [Ecotrin] 81 mg PO DAILY #14 tabec Famotidine [Pepcid] 20 mg PO BID #28 tab Folic Acid 1 mg PO DAILY #14 tab Metoprolol Tartrate [Lopressor] 12.5 mg PO BID #28 tab Multimineral/Multivitamin [Therapeutic-M Tab] 1 tab PO DAILY #28 tab Simvastatin [Zocor] 40 mg PO DAILY #14 tablet Thiamine [Vitamin B1 Tab] 100 mg PO DAILY #14 tab - Follow Up Plan Condition: STABLE Disposition: HOME/ ROUTINE Instructions: Gastritis (DC), Alcohol Withdrawal (DC), Alcohol Abuse and Alcoholism (DC), Chest Pain (DC), Chest Pain (GEN) Additional Instructions: - Please follow up with your PMD Dr. Victor within 7 days of discharge and GI Dr. Brown within 10-14 days of discharge. - Please take the following medications as prescribed: Pepcid 20mg 1 tab by mouth twice a day ASA 81mg 1 tab by mouth daily Folic acid 1 tab by mouth daily Thiamine 1 tab by mouth daily Multivitamin 1 tab by mouth daily Simvastatin 40mg 1 tab by mouth daily Norvasc 10mg 1 tab by mouth daily Lopressor 12.5mg 1 tab by mouth twice a day - Please do NOT resume your home dose of Lopressor or your Diovan. - Please abstain from drinking alcohol. - Please return to the nearest emergency department if your symptoms worsen or reoccur. 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 Comment: cp hyponatremia Physician Instructions: Reason For Exam: assess Respiratory Therapy Referral Routine Comment: smoker Physician Instructions: Reason For Exam: assess Transition In Care/Readmission Reduction Routine Comment: chest pain/ hyponatremia Physician Instructions: Reason For Exam: assess Hospital Course - Lab Results Lab Results: Most Recent Lab Values WBC 4.1 10^3/uL (4.5-11.0) L 10/21/18 06:00 RBC 3.62 10^6/uL (3.5-6.1) 10/21/18 06:00 Hgb 11.7 g/dL (14.0-18.0) L 10/21/18 06:00 Hct 35.0 % (42.0-52.0) L 10/21/18 06:00 MCV 96.7 fl (80.0-105.0) 10/21/18 06:00 MCH 32.3 pg (25.0-35.0) 10/21/18 06:00 MCHC 33.4 g/dl (31.0-37.0) 10/21/18 06:00 RDW 14.0 % (11.5-14.5) 10/21/18 06:00 Plt Count 221 10^3/uL (120.0-450.0) 10/21/18 06:00 MPV 10.1 fl (7.0-11.0) 10/21/18 06:00 Neut % (Auto) 50.3 % (50.0-68.0) 10/21/18 06:00 Lymph % (Auto) 31.3 % (22.0-35.0) 10/21/18 06:00 [place] % (Auto) 14.8 % (1.0-6.0) H 10/21/18 06:00 Eos % (Auto) 2.4 % (1.5-5.0) 10/21/18 06:00 Baso % (Auto) 1.2 % (0.0-3.0) 10/21/18 06:00 Lymph # (Auto) 1.3 (1.2-3.4) 10/21/18 06:00 [place] # (Auto) 0.6 (0.1-0.6) 10/21/18 06:00 Eos # (Auto) 0.1 (0.0-0.7) 10/21/18 06:00 Baso # (Auto) 0.05 K/mm3 (0.0-2.0) 10/21/18 06:00 Absolute Neuts (auto) 2.07 (1.4-6.5) 10/21/18 06:00 PT 10.8 SECONDS (9.4-12.5) 10/19/18 07:19 INR 0.96 10/19/18 07:19 APTT 27.7 Seconds (26.9-38.3) 10/19/18 07:19 pO2 182 mm/Hg (30-55) H 10/19/18 07:45 VBG pH 7.34 (7.32-7.43) 10/19/18 07:45 VBG pCO2 31.0 (40-60) L 10/19/18 07:45 VBG HCO3 16.7 mmol/l (21-28) L 10/19/18 07:45 VBG Total CO2 17.7 mmol.L (22-28) L 10/19/18 07:45 VBG O2 Sat (Calc) 98.9 % (40-65) H 10/19/18 07:45 VBG Base Excess -7.9 mmol/L (0.0-2.0) L 10/19/18 07:45 VBG Potassium 3.6 mmol/L (3.6-5.2) 10/19/18 07:45 Sodium 123.0 mmol/L (132-148) L 10/19/18 07:45 Chloride 93.0 mmol/L (98-107) L 10/19/18 07:45 Glucose 82 mg/dl (75-110) 10/19/18 07:45 Lactate 1.5 mmol/L (0.7-2.1) 10/19/18 07:45 FiO2 21.0 % 10/19/18 07:45 Sodium 138 mmol/L (132-148) 10/21/18 06:00 Potassium 3.8 mmol/L (3.6-5.0) 10/21/18 06:00 Chloride 105 mmol/L (98-107) 10/21/18 06:00 Carbon Dioxide 24 mmol/L (21-33) 10/21/18 06:00 Anion Gap 13 (10-20) 10/21/18 06:00 BUN 13 mg/dL (7-21) 10/21/18 06:00 Creatinine 0.8 mg/dl (0.8-1.5) 10/21/18 06:00 Est GFR ( Amer) > 60 10/21/18 06:00 Est GFR (Non-Af Amer) > 60 10/21/18 06:00 POC Glucose (mg/dL) 134 mg/dL (65-110) H 10/19/18 06:56 Random Glucose 95 mg/dL (70-110) 10/21/18 06:00 Calcium 8.7 mg/dL (8.4-10.5) 10/21/18 06:00 Phosphorus 3.0 mg/dL (2.5-4.5) 10/20/18 06:20 Magnesium 2.4 mg/dL (1.7-2.2) H 10/20/18 06:20 Total Bilirubin 0.7 mg/dL (0.2-1.3) 10/21/18 06:00 AST 44 U/L (17-59) 10/21/18 06:00 ALT 17 U/L (7-56) 10/21/18 06:00 Alkaline Phosphatase 70 U/L (38-126) 10/21/18 06:00 Troponin I < 0.01 ng/mL 10/19/18 19:39 NT-Pro-B Natriuret Pep 153 pg/mL (0-450) 10/19/18 07:19 Total Protein 7.2 g/dL (5.8-8.3) 10/21/18 06:00 Albumin 4.1 g/dL (3.0-4.8) 10/21/18 06:00 Globulin 3.2 gm/dL 10/21/18 06:00 Albumin/Globulin Ratio 1.3 (1.1-1.8) 10/21/18 06:00 Lipase 534 U/L (23-300) H 10/20/18 10:30 Free T4 0.87 ng/dL (0.78-2.19) 10/20/18 06:20 TSH 3rd Generation 0.61 mIU/mL (0.46-4.68) 10/20/18 06:20 Venous Blood Potassium 3.6 mmol/L (3.6-5.2) 10/19/18 07:45 Urine Opiates Screen Negative (NEGATIVE) 10/19/18 10:00 Urine Methadone Screen Negative (NEGATIVE) 10/19/18 10:00 Ur Barbiturates Screen Negative (NEGATIVE) 10/19/18 10:00 Ur Phencyclidine Scrn Negative (NEGATIVE) 10/19/18 10:00 Ur Amphetamines Screen Negative (NEGATIVE) 10/19/18 10:00 U Benzodiazepines Scrn Negative (NEGATIVE) 10/19/18 10:00 U Oth Cocaine Metabols Negative (NEGATIVE) 10/19/18 10:00 U Cannabinoids Screen Negative (NEGATIVE) 10/19/18 10:00 Alcohol, Quantitative 270 mg/dL (0-10) H 10/19/18 07:19 Attending/Attestation - Attestation I have personally seen and examined this patient.: Yes I have fully participated in the care of the patient.: Yes I have reviewed all pertinent clinical information, including history, physical exam and plan: Yes Notes (Text): 10/21/18 14:35 57 year old male with past medical history of CAD s/p stent (2012) alcohol abuse, tobacco use and hypertension who presented with alcohol intoxication and complaint of chest pain. Serial cardiac enzymes were negative and ACS was ruled out. Cardiology evaluation was appreciated. Patient was continued with aspirin, statin and metoprolol. He was counselled on alcohol abstinence. Counselled on smoking cessation. Hyponatremia resolved. CT chest also showed thicked walled esophagus. CT abd/pelvis was unremarkable. He was seen by GI today and had EGD which showed gastritis. Patient is discharged home today to follow up with pmd. 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 Continue with pepcid. Will call with biopsy results. Counselled on GERD precautions. Counselled on alcohol abstinence. Sweta Flores MD Hospitalist.
[2018-10-21 11:53] VITALS: BP 159/82; PULSE 78; RESP 16; O2SAT 98
--- NOTE | 2018-10-21 12:25 | CP.PCM.PN ---
Subjective - Date & Time of Evaluation Date of Evaluation: 10/21/18 Time of Evaluation: 12:22 - Subjective Subjective: Patient seen and examined, no acute events overnight. He denies abdominal pain, nausea, vomiting, fever/chills. s/p EGD today showing mild gastritis. Objective - Vital Signs/Intake and Output Vital Signs (last 24 hours): Temp Pulse Resp BP Pulse Ox 98.1 F 78 16 159/82 H 98 10/21/18 11:41 10/21/18 11:41 10/21/18 11:41 10/21/18 11:41 10/21/18 11:41 Intake and Output: 10/21/18 10/21/18 06:59 18:59 Intake Total 420 Balance 420 - Medications Medications: Current Medications Aspirin (Ecotrin) 81 mg PO DAILY [facility] Last Admin: 10/20/18 09:12 Dose: 81 mg Atorvastatin Calcium (Lipitor) 20 mg PO DIN [facility] Last Admin: 10/20/18 16:56 Dose: 20 mg Folic Acid (Folic Acid) 1 mg PO DAILY [facility] Last Admin: 10/20/18 09:12 Dose: 1 mg Sodium Chloride (Sodium Chloride 0.9%) 1,000 mls @ 75 mls/hr IV .[id number] [facility] Stop: 10/21/18 13:01 Lorazepam (Ativan) 1 mg IVP Q2 PRN; Protocol PRN Reason: Symptoms of alcohol withdrawl Last Admin: 10/20/18 09:12 Dose: 1 mg Lorazepam (Ativan) 1 mg IVP Q4H [facility]; Protocol Last Admin: 10/21/18 07:50 Dose: 1 mg Metoprolol Tartrate (Lopressor) 12.5 mg PO BID [facility] Last Admin: 10/20/18 16:59 Dose: 12.5 mg Multivitamins/Minerals (Therapeutic-M Tab) 1 tab PO DAILY [facility] Last Admin: 10/20/18 09:12 Dose: 1 tab Ondansetron HCl (Zofran Inj) 4 mg IVP Q6H PRN PRN Reason: Nausea/Vomiting Pantoprazole Sodium (Protonix Ec Tab) 40 mg PO 0600,1600 [facility] Last Admin: 10/21/18 05:58 Dose: 40 mg Thiamine HCl (Vitamin B1 Tab) 100 mg PO DAILY [facility] Last Admin: 10/20/18 09:13 Dose: 100 mg - Labs Labs: 04/26/19 06:00 10/21/18 06:00 PT 10.8 SECONDS (9.4-12.5) 10/19/18 07:19 INR 0.96 10/19/18 07:19 APTT 27.7 Seconds (26.9-38.3) 10/19/18 07:19 Assessment and Plan - Assessment and Plan (Free Text) Assessment: CAD s/p stent HTN ETOH abuse Heartburn, abnormal CT imaging - s/p EGD today showing gastritis Plan: - Diet as tolerated - Follow up EGD biopsy results - Follow up results from CT abdomen/pelvis - ETOH cessation counseling - Patient would benefit from additional outpatient follow up. No further planned GI intervention at this time, will sign off case. Please reconsult as necessary, thank you.
--- NOTE | 2018-10-21 12:37 | CT ---
Date of service: 10/20/2018 PROCEDURE: CT Abdomen and Pelvis with contrast HISTORY: weight loss, abdominal pain COMPARISON: None. TECHNIQUE: Contrast dose: 100 cc of Omni 350 Radiation dose: Total exam DLP = 431.59 mGy-cm. This CT exam was performed using one or more of the following dose reduction techniques: Automated exposure control, adjustment of the mA and/or kV according to patient size, and/or use of iterative reconstruction technique. FINDINGS: LOWER THORAX: Unremarkable. LIVER: Unremarkable. No gross lesion or ductal dilatation. GALLBLADDER AND BILE DUCTS: Unremarkable. PANCREAS: Unremarkable. No gross lesion or ductal dilatation. SPLEEN: Unremarkable. ADRENALS: Unremarkable. No mass. KIDNEYS AND URETERS: Unremarkable. No hydronephrosis. No solid mass. VASCULATURE: Unremarkable. No aortic aneurysm. Mild aortic calcification BOWEL: Unremarkable. No obstruction. No gross mural thickening. APPENDIX: Normal appendix. PERITONEUM: Unremarkable. No free fluid. No free air. LYMPH NODES: Unremarkable. No enlarged lymph nodes. BLADDER: Unremarkable. REPRODUCTIVE: Unremarkable. BONES: No acute fracture. OTHER FINDINGS: The report concurs with the preliminary [facility] report IMPRESSION: Unremarkable contrast enhanced CT of the abdomen and pelvis.
== END 2018-10-21 15:54 | disposition home or self-care (01) ==
LOC: ED 06:42 → ERH 09:52 → 3RNO 22:15
PROVIDERS: ADMIT Internal Medicine; ATTEND Internal Medicine
DX: K29.70 Gastritis, unspecified, without bleeding (principal); B96.81 Helicobacter pylori [H. pylori] as the cause of diseases classified elsewhere; F10.239 Alcohol dependence with withdrawal, unspecified; F10.229 Alcohol dependence with intoxication, unspecified; Y90.8 Blood alcohol level of 240 mg/100 ml or more; E87.1 Hypo-osmolality and hyponatremia; I25.10 Atherosclerotic heart disease of native coronary artery without angina pectoris; I48.0 Paroxysmal atrial fibrillation; I10 Essential (primary) hypertension; J44.9 Chronic obstructive pulmonary disease, unspecified; E78.00 Pure hypercholesterolemia, unspecified; K21.9 Gastro-esophageal reflux disease without esophagitis; F41.0 Panic disorder [episodic paroxysmal anxiety]; F17.210 Nicotine dependence, cigarettes, uncomplicated; Z95.0 Presence of cardiac pacemaker; Z95.5 Presence of coronary angioplasty implant and graft
CPT/HCPCS: 36415; 43239; 71275; 74177; 80048; 80053; 82803; 82948; 83690; 83735; 83880; 84100; 84439; 84443; 84484; 85025; 85610; 85730; 88305; 88342; 93005; 96374; 96375; 96376; 99285; G0378; G0480; J2001; J2060; J2704; J3411; J7030; Q9967

== ENCOUNTER 2018-11-08 14:01 | Emergency (ER) | payer MEDICAID, OTHER ==
[2018-11-08 14:06] VITALS: BMI 27.1
[2018-11-08 14:18] VITALS: BP 125/75; RESP 19; TEMP 98.1; O2SAT 95
[2018-11-08 14:19] VITALS: PULSE 63
--- NOTE | 2018-11-08 14:30 | ED PDOC ---
Arrival/HPI - General Chief Complaint: Chest Pain Time Seen by Provider: 11/08/18 14:06 EM Caveat: Uncooperative (Refuses to provide any reliable history) - History of Present Illness Narrative History of Present Illness (Text): 11/08/18 14:28 HPI is limited; patient is uncooperative and refuses to provide any reliable history. Past Medical History - Provider Review Nursing Documentation Reviewed: Yes - Infectious Disease Hx of Infectious Diseases: None - Tetanus Immunization Tetanus Immunization: Unknown - Cardiac Hx Cardiac Disorders: Yes (a fib, palpitations, cad) Hx Cardiac Arrhythmia: Yes Hx Congestive Heart Failure: Yes (Paroxymal Afib) Hx Hypertension: Yes Hx Pacemaker: Yes Other/Comment: paroxymal afib, irregular heartbeat - Pulmonary Hx Respiratory Disorders: Yes Hx Asthma: Yes Hx Bronchitis: Yes Hx Chronic Obstructive Pulmonary Disease (COPD): Yes - Neurological Hx Neurological Disorder: Yes (loc) Hx Dizziness: Yes - HEENT Hx HEENT Disorder: Yes (eyeglasses) - Renal Hx Renal Disorder: No - Endocrine/Metabolic Hx Endocrine Disorders: No - Hematological/Oncological Hx Blood Transfusions: No Hx Blood Transfusion Reaction: No - Integumentary Hx Dermatological Disorder: Yes - Musculoskeletal/Rheumatological Hx Musculoskeletal Disorders: Yes Hx Falls: Yes - Gastrointestinal Hx Gastrointestinal Disorders: Yes (gi bleed) - Genitourinary/Gynecological Hx Genitourinary Disorders: No - Psychiatric Hx Psychophysiologic Disorder: Yes Hx Anxiety: Yes Hx Depression: Yes Hx Panic Disorder: Yes Hx Substance Use: No - Past Surgical History Past Surgical History: No Previous - Surgical History Hx Cardiac Catheterization: Yes (x1 2011) Hx Coronary Stent: Yes - Anesthesia Hx Anesthesia Reactions: No Hx Malignant Hyperthermia: No - Suicidal Assessment Feels Threatened In Home Enviroment: No Family/Social History - Physician Review Nursing Documentation Reviewed: Yes Family/Social History: Unknown Family HX Smoking Status: Heavy Smoker > 10 Cigarettes Daily Hx Alcohol Use: Yes Amount per day: 5 Hx Substance Use: No Hx Substance Use Treatment: No Allergies/Home Meds Allergies/Adverse Reactions: Allergies No Known Allergies Allergy (Verified 11/08/18 14:04) Home Medications: Home Meds Medication Instructions Recorded Confirmed Sertraline [Zoloft] 100 mg PO DAILY 10/19/18 10/19/18 Review of Systems - Review of Systems Systems not reviewed;Unavailable: Uncooperative Physical Exam - Physical Exam Physical Exam Limitations: Uncooperative Vital Signs Reviewed: Yes Vital Signs Temp Pulse Pulse Resp BP Pulse Ox 11/08/18 14:18 63 11/08/18 14:17 98.1 F 67 19 125/75 95 Temperature: Afebrile Blood Pressure: Normal Pulse: Regular Respiratory Rate: Normal Medical Decision Making ED Course and Treatment: 11/08/18 14:31 Impression:alcohol intoxication Differential Diagnosis included but are not limited to: Plan: -- Labs -- Chest X-Ray -- IV Fluids -- Reassess and disposition Prior Visits: Notes and results from previous visits were reviewed. Patient was last seen in the emergency department on [facility] Notes: 11/08/18 16:37 patient is awake and alert, offers no physical complaints, patient to be discharged home in the company of adult friends that will assume care of the patient. there is low clinical suspicion for acs as the patient has been seem multiple times in the ED with identical presentations and always complains of chest pain. - RAD Interpretation Narrative RAD Interpretations (Text): 11/08/18 16:47 Chest X-Ray IMPRESSION: No active pulmonary disease. Radiology Orders: 11/08/18 14:21 CHEST PORTABLE [RAD] Stat - EKG Interpretation EKG Interpretation (Text): 11/08/18 15:48 ekg my read: sinus rhythm at 61 bpm, nml qrs, nml axis, 1st degree av block, no acute sttw abn Interpreted by ED Physician: Yes - Scribe Statement The provider has reviewed the documentation as recorded by the Frankie Abdul Provider Scribe Attestation: All medical record entries made by the Scribe were at my direction and personally dictated by me. I have reviewed the chart and agree that the record accurately reflects my personal performance of the history, physical exam, medical decision making, and the department course for this patient. I have also personally directed, reviewed, and agree with the discharge instructions and disposition. Disposition/Present on Arrival - Present on Arrival Any Indicators Present on Arrival: No History of DVT/PE: No History of Uncontrolled Diabetes: No Urinary Catheter: No History of Decub. Ulcer: No History Surgical Site Infection Following: None - Disposition Have Diagnosis and Disposition been Completed?: Yes Diagnosis: Alcohol intoxication Disposition: HOME/ ROUTINE Disposition Time: 16:40 Patient Plan: Discharge Patient Problems: Current Active Problems Problem Status Onset Alcohol intoxication Chronic Condition: STABLE Discharge Instructions (ExitCare): Alcohol Use - When Is Drinking a Problem? Referrals: [facility] [Outside] - Follow up with primary Forms: [employer] ([place]z)
--- NOTE | 2018-11-08 14:59 | RAD ---
Date of service: 11/08/2018 HISTORY: chest pain COMPARISON: 07/31/2018 FINDINGS: LUNGS: The lungs are well inflated and clear. PLEURA: No pleural effusions or pneumothorax. CARDIOVASCULAR: The heart is normal in size. No aortic atherosclerotic calcifications present. OSSEOUS STRUCTURES: Within normal limits for the patient's age. VISUALIZED UPPER ABDOMEN: Normal. OTHER FINDINGS: None. IMPRESSION: No active pulmonary disease.
[2018-11-08 15:19] LABS: BASO # 0.07 K/mm3 (0.0-2.0); BASO % 1.2 % (0.0-3.0); EOS # 0.1 (0.0-0.7); EOS % 1.2 % (1.5-5.0); HEMOGLOBIN 13.9 g/dL (14.0-18.0); LYMPH # 2.6 (1.2-3.4); LYMPH % 42.9 % (22.0-35.0); MEAN CELL VOLUME 98.8 fl (80.0-105.0); MEAN CORPUSCULAR HEMOGLOBIN 32.9 pg (25.0-35.0); MEAN CORPUSCULAR HGB CONC 33.3 g/dl (31.0-37.0); MEAN PLATELET VOLUME 9.6 fl (7.0-11.0); MONO # 0.6 (0.1-0.6); MONO % 10.6 % (1.0-6.0); RBC 4.23 10^6/uL (3.5-6.1)
[2018-11-08 15:28] LABS: INR 1.05; PARTIAL THROMBOPLASTIN TIME 27.3 Seconds (26.9-38.3); PROTHROMBIN TIME 11.7 SECONDS (9.4-12.5)
[2018-11-08 15:45] LABS: ALB/GLOB RATIO 1.3 (1.1-1.8); ALBUMIN 4.2 g/dL (3.0-4.8); ALT/SGPT 43 U/L (7-56); AST/SGOT 82 U/L (17-59); BLOOD UREA NITROGEN 7 mg/dL (7-21); CALCIUM 8.9 mg/dL (8.4-10.5); GFR NON-AFRICAN AMERICAN > 60
[2018-11-08 15:49] LABS: TROPONIN I < 0.01 ng/mL
--- NOTE | 2018-11-08 20:54 | CARD ---
APPROVED REPORT Date of service: 11/08/2018 EKG Measurement Heart [id number] <Conclusion> Sinus rhythm with 1st degree AV block Poor R wave progression V1-4. Cannot exclude old ASMI Leftward axis CCR Abnormal ECG
== END 2018-11-08 16:40 | disposition home or self-care (01) ==
LOC: ED 14:01
DX: F10.129 Alcohol abuse with intoxication, unspecified (principal); Y90.8 Blood alcohol level of 240 mg/100 ml or more; I25.10 Atherosclerotic heart disease of native coronary artery without angina pectoris; I11.0 Hypertensive heart disease with heart failure; I50.9 Heart failure, unspecified; I48.0 Paroxysmal atrial fibrillation; J44.9 Chronic obstructive pulmonary disease, unspecified; F41.9 Anxiety disorder, unspecified; Z95.0 Presence of cardiac pacemaker; Z95.5 Presence of coronary angioplasty implant and graft; F17.210 Nicotine dependence, cigarettes, uncomplicated
CPT/HCPCS: 71045; 80053; 83735; 84484; 85025; 85610; 85730; 93005; 99283; G0480